=== PATIENT | female | born 1985 | race Caucasian/White ===

== ENCOUNTER 2016-10-13 16:47 | Emergency (ER) | payer OTHER ==
[2016-10-13] MEDS ORDERED: oxyCOD/ACETAMIN 5 MG/325 MG TABLET PO STA (17:07)
[2016-10-13] MEDS ORDERED: BUPIVACAINE 0.5%-EPI 1:200000 PF 10 ML VIAL SUBQ STA (17:07)
[2016-10-13] MEDS ORDERED: LIDOCAINE-EPINEPH-TETRACAINE 3 ML SYRINGE TOP STA (17:07)
[2016-10-13] MEDS ORDERED: LIDOCAINE-EPINEPH-TETRACAINE 3 ML SYRINGE TOP ONE (17:09)
[2016-10-13] MEDS ORDERED: oxyCOD/ACETAMIN 5 MG/325 MG TABLET PO ONE (17:09)
== END 2016-10-13 18:07 | disposition home or self-care (01) ==
DX: L02.412 Cutaneous abscess of left axilla (principal); E10.9 Type 1 diabetes mellitus without complications; F17.200 Nicotine dependence, unspecified, uncomplicated
CPT/HCPCS: 10060; 87070; 87205; 99283; A9270

== ENCOUNTER 2017-05-02 11:58 | Emergency (ER) | payer OTHER ==
[2017-05-02] MEDS ORDERED: LIDOCAINE 2%-EPI 1:100000 20 ML MDV SUBQ STA (13:11)
[2017-05-02] MEDS ORDERED: LIDOCAINE 2%-EPI 1:100000 20 ML MDV ONE (13:14)
[2017-05-02 13:15] VITALS: BP 156/75
--- NOTE | 2017-05-02 13:20 | ED Physician Documentation ---
History of Present Illness - Stated complaint Stated Complaint: LT ARM,ABD BLISTER - Chief complaint Chief Complaint: Ext Problem - History obtained from History obtained from: Patient - History of Present Illness Timing: How many days ago (several) Pain level max: 3 Pain level now: 3 Improved by: nothing Worsened by: nothing - Additonal information Additional information: Patient is a 31-year-old female who was seen at the [facility] earlier today and found to have an abscess on her stomach as well as in the left axilla. They stated that it would take them approximately 2 hours to drain the use at the [facility], so they sent her here for evaluation. She has had these abscesses multiple times in the past. Is not on antibiotics. Does not have any fevers. The abscess on the stomach spontaneously drained a few days ago, the abscess in the left axilla spontaneously drained on the way to the emergency department. Review of Systems Constitutional: denies: Fever, Chills Nose: denies: Rhinorrhea / runny nose, Congestion GI: denies: Nausea, Vomiting, Diarrhea : denies: Dysuria, Now EGA Musculoskeletal: denies: Neck pain, Back pain Neurologic: denies: Focal weakness, Numbness, Headache PD PAST MEDICAL HISTORY - Past Medical History Past Medical History: Yes Endocrine/Autoimmune: Type 1 diabetes Psych: ADD/ADHD - Past Surgical History Past Surgical History: No - Present Medications Home Medications: Ambulatory Orders Medication Instructions Recorded Confirmed Clonazepam [Klonopin] 0.5 mg PO DAILY 02/13/16 05/02/17 Insulin Aspart [Novolog] 10 unit SQ DAILYWM 02/13/16 05/02/17 Insulin Glargine,Hum.rec.anlog 40 unit SQ BID 02/13/16 05/02/17 [Lantus] Cephalexin [Keflex] 500 mg PO Q6H #28 capsule 05/02/17 Hydrocodone/Acetaminophen 1 - 2 each PO Q6H PRN #14 tablet 05/02/17 [Hydrocodon-Acetaminophen 5-325] Sulfamethox/Trimeth 800/160 1 each PO BID #14 tablet 05/02/17 [Bactrim Ds 800/160] - Allergies Allergies/Adverse Reactions: Allergies Allergy/AdvReac Type Severity Reaction Status Date / Time No Known Drug Allergies Allergy Verified 02/13/16 16:05 - Social History Does the pt smoke?: Yes Smoking Status: Current every day smoker Does the pt drink ETOH?: No Does the pt have substance abuse?: No - Immunizations Immunizations are current?: Yes - POLST Patient has POLST: No PD ED PE NORMAL - Vitals Vital signs reviewed: Yes - General General: Alert and oriented X 3, No acute distress - HEENT HEENT: Moist mucous membranes - Neck Neck: Supple, no meningeal sign - Cardiac Cardiac: RRR - Respiratory Respiratory: No respiratory distress, Clear bilaterally - Abdomen Abdomen: Soft, Non tender, Non distended - Derm Derm: Warm and dry, Other (2 x 2 centimeter indurated, raised, erythematous area to the left axilla, draining purulent fluid. A 1.5 x 1.5 cm indurated, erythematous area to the superior aspect of the stomach, near the epigastrium.) - Neuro Neuro: Alert and oriented X 3 Results - Vitals Vitals: Vital Signs - 24 hr 05/02/17 05/02/17 12:05 13:14 Temperature 36.7 C Heart Rate 109 H 103 H Respiratory 18 20 Rate Blood Pressure 141/94 H 156/75 H O2 Saturation 99 97 Oxygen O2 Source Room air Procedures - Abscess I&D (location) abdominal wall Preparation: Confirmed with ultrasound, Chlorhexadine Incision: Incised with scalpel, Purulent drainage, Culture obtained Other: Pt tolerated well, Antibiotic prescribed PD MEDICAL DECISION MAKING - ED course Complexity details: considered differential, d/w patient ED course: Patient is a 31-year-old female who presents to the emergency department with 2 abscesses. The left axillary abscess drained spontaneously on the way to the emergency department and she refuses incision and drainage of this abscess. A wound culture was obtained. An incision and drainage was performed over the abdominal wall abscess, she adamantly refused any lidocaine or any pain medication for the procedure. This was drained. Tolerated well. Will place on antibiotics for home and follow-up with her doctor. Patient counseled regarding signs and symptoms for which I believe and urgent re-evaluation would be necessary. Patient with good understanding of and agreement to plan and is comfortable going home at this time This document was made in part using voice recognition software. While efforts are made to proofread this document, sound alike and grammatical errors may occur. Departure - Departure Disposition: 01 Home, Self Care Clinical Impression: Abscess Condition: Good Instructions: ED Abscess IandD Follow-Up: Yolanda Ward DO [Primary Care Provider] - Within 1 week Prescriptions: Sulfamethox/Trimeth 800/160 [Bactrim Ds 800/160] 1 each PO BID #14 tablet Hydrocodone/Acetaminophen [Hydrocodon-Acetaminophen 5-325] 1 - 2 each PO Q6H PRN #14 tablet PRN Reason: pain Cephalexin [Keflex] 500 mg PO Q6H #28 capsule Comments: Return if you worsen. Take all antibiotics until gone. If these re-accumulate, they may need to be drained. You can also apply warm water/compresses three times a day for 10-15 minutes at a time. Discharge Date/Time: 05/02/17 13:29
== END 2017-05-02 13:29 | disposition home or self-care (01) ==
LOC: ED 11:58
DX: L02.211 Cutaneous abscess of abdominal wall (principal); L02.412 Cutaneous abscess of left axilla; E10.9 Type 1 diabetes mellitus without complications; F17.200 Nicotine dependence, unspecified, uncomplicated
CPT/HCPCS: 10060; 99283

== ENCOUNTER 2017-07-12 07:44 | Outpatient (CLI) | payer OTHER ==
--- NOTE | 2017-07-12 14:09 | MRI Report ---
EXAM: RIGHT FOREFOOT MRI WITHOUT CONTRAST EXAM DATE: 07/12/2017 08:30 AM. CLINICAL HISTORY: Pain in the right ankle and second metatarsophalangeal joint. History of osteomyeli tis. COMPARISON: Prior MRI 10/31/2011. TECHNIQUE: Multiplanar, multisequence T1-weighted and fluid-sensitive sequences of the forefoot witho ut contrast. Other: None. FINDINGS: Bones: There are no visible fractures. There are no foci of marrow edema. Joints: No subluxations. No effusions. The lcdlsd-tzzxvgls-xkhobmbyls complex is unremarkable. The vi sualized plantar plates are unremarkable. Articular Cartilage: Unremarkable. Ligaments: The visualized collateral ligaments are intact. Tendons: The flexor and extensor tendons are unremarkable. Musculature: No edema or fatty atrophy. Other: There is a 1.1 x 1.7 x 0.9 cm low T1, high T2 signal region in the subcutaneous fat underlying the surface marker, over the plantar aspect of the proximal phalanx of the fourth digit. The finding s are suggestive of a fluid collection, possibly an abscess. The differential diagnosis includes a ph legmon. There is edema of the soft tissues between the third and fourth metatarsal heads. The subcuta neous tissues are unremarkable. IMPRESSION: 1. Probable subcutaneous fluid collection or phlegmon underlying the proximal phalanx of the fourth d igit. This may be an abscess. There is surrounding subcutaneous edema. 2. No evidence of osteomyelitis. 3. No tenosynovitis or myositis. [facility] MUSCULOSKELETAL RADIOLOGY SECTION Referring Provider Line: [phone] SITE ID: [id number]
== END 2017-07-12 07:45 | disposition home or self-care (01) ==
LOC: DI 07:44
PROVIDERS: ATTEND Physician Assistant
DX: M25.571 Pain in right ankle and joints of right foot (principal)

== ENCOUNTER 2017-10-05 21:24 | Emergency (ER) | payer OTHER ==
[2017-10-05 21:30] VITALS: BP 144/83
[2017-10-05] MEDS ORDERED: SULFAMETH/TRIMETH DS 800/160 MG TABLET PO STA (21:34)
[2017-10-05] MEDS ORDERED: BUFFERED LIDOCAINE 10 ML SYRINGE SUBQ STA (21:34)
[2017-10-05] MEDS ORDERED: HYDROcod/ACETAM 5/325 MG TABLET PO STA (21:34)
--- NOTE | 2017-10-05 21:39 | ED Physician Documentation ---
PD HPI SKIN - Stated complaint Stated Complaint: BACK PAIN - Chief complaint Chief Complaint: Wound - History obtained from History obtained from: Patient - History of Present Illness Timing - onset: Other (32-year-old type I diabetic who has recurrent abscesses and has a 5 day history of abscess on the right flank.) Review of Systems Constitutional: reports: Chills, Sweats GI: denies: Abdominal Pain, Nausea, Vomiting Skin: reports: Rash, Lesions Musculoskeletal: denies: Neck pain PD PAST MEDICAL HISTORY - Past Medical History Past Medical History: Yes Endocrine/Autoimmune: Type 1 diabetes Psych: ADD/ADHD - Past Surgical History Past Surgical History: No - Present Medications Home Medications: Ambulatory Orders Medication Instructions Recorded Confirmed Insulin Aspart [Novolog] 10 unit SQ DAILYWM 02/13/16 05/02/17 Insulin Glargine,Hum.rec.anlog 40 unit SQ BID 02/13/16 05/02/17 [Lantus] HYDROcod/ACETAM 5/325 [[place] 5/325] 1 - 2 ea PO Q6H PRN #10 tablet 10/05/17 Sulfamethoxazole/Trimethoprim 1 each PO BID 7 Days tablet 10/05/17 [Sulfamethoxazole-Tmp Ds Tablet] - Allergies Allergies/Adverse Reactions: Allergies Allergy/AdvReac Type Severity Reaction Status Date / Time No Known Drug Allergies Allergy Verified 10/05/17 21:30 - Social History Does the pt smoke?: Yes Smoking Status: Current every day smoker Does the pt drink ETOH?: No Does the pt have substance abuse?: No - Immunizations Immunizations are current?: Yes - POLST Patient has POLST: No PD ED PE NORMAL - Vitals Vital signs reviewed: Yes - General General: Alert and oriented X 3, No acute distress - Abdomen Abdomen: Soft, Non tender - Derm Derm: Other (There is a pointed abscess on the right flank with mild surrounding cellulitis.) - Neuro Neuro: Alert and oriented X 3, Normal speech - Psych Psych: Normal mood, Normal affect Results - Vitals Vitals: Vital Signs - 24 hr 10/05/17 21:28 Temperature 37.2 C Heart Rate 117 H Respiratory 18 Rate Blood Pressure 144/83 H O2 Saturation 99 Oxygen O2 Source Room air - Labs Labs: Laboratory Tests 10/05/17 21:42 POC Whole Bld Glucose 196 H Procedures - Abscess I&D (location) R flank Preparation: Alcohol, Lidocaine 1% Incision: Incised with scalpel, Purulent drainage, Loculations broken, Packed ( with 1/4 inch packing), Culture obtained Other: Pt tolerated well, Antibiotic prescribed Departure - Departure Disposition: Home, Self Care Clinical Impression: Abscess Condition: Good Record reviewed to determine appropriate education?: Yes Instructions: ED Abscess IandD Prescriptions: HYDROcod/ACETAM 5/325 [[place] 5/325] 1 - 2 ea PO Q6H PRN #10 tablet PRN Reason: Pain Sulfamethoxazole/Trimethoprim [Sulfamethoxazole-Tmp Ds Tablet] 1 each PO BID 7 Days tablet Comments: We are performing a wound culture, the results should be done in 48-72 hours. If antibiotic change is necessary we will call you. Return if worse in the meantime, especially if you develop increased pain, fevers, cannot keep down the medication. Otherwise follow-up with your physician in approximately 2-3 days. Your blood pressure was elevated today on check into the emergency department. This does not mean that you have hypertension, it is a common phenomenon to come to the emergency department and have elevated blood pressure. I recommend that you see your primary care physician within the week to have it rechecked when you are feeling better.
== END 2017-10-05 22:03 | disposition home or self-care (01) ==
LOC: ED 21:24
DX: L02.211 Cutaneous abscess of abdominal wall (principal); E10.9 Type 1 diabetes mellitus without complications; R03.0 Elevated blood-pressure reading, without diagnosis of hypertension; F17.200 Nicotine dependence, unspecified, uncomplicated
CPT/HCPCS: 10060; 87070; 87181; 87205; 99283; A9270

== ENCOUNTER 2018-03-26 19:13 | Emergency (ER) | payer OTHER ==
[2018-03-26 19:19] VITALS: BP 140/99
[2018-03-26] MEDS ORDERED: BUFFERED LIDOCAINE 10 ML SYRINGE ONE (20:18)
[2018-03-26] MEDS ORDERED: DOXYCYCLINE 100 MG TABLET PO STA (20:40)
--- NOTE | 2018-03-26 20:43 | ED Physician Documentation ---
History of Present Illness - Stated complaint Stated Complaint: L ARM BUBBLE - Chief complaint Chief Complaint: General - History obtained from History obtained from: Patient - Additonal information Additional information: 32-year-old female presents the emergency department with pain under her left axilla. The patient has a history of recurrent abscesses. The patient reports increasing pain over the past 5 days and soreness and redness. No drainage. No fevers, no chills. Symptoms are described as moderate. No other associated symptoms Review of Systems Constitutional: denies: Fever, Chills Eyes: denies: Discharge Nose: denies: Congestion Throat: denies: Sore throat Skin: reports: Other (Abscess) Neurologic: denies: Generalized weakness Endocrine: denies: Polyphagia Immunocompromised: denies: Chemotherapy PD PAST MEDICAL HISTORY - Past Medical History Past Medical History: Yes Endocrine/Autoimmune: Type 1 diabetes Psych: ADD/ADHD - Past Surgical History Past Surgical History: No - Present Medications Home Medications: Ambulatory Orders Medication Instructions Recorded Confirmed Insulin Aspart [Novolog] 10 unit SQ DAILYWM 02/13/16 05/02/17 Insulin Glargine,Hum.rec.anlog 40 unit SQ BID 02/13/16 05/02/17 [Lantus] Doxycycline Hyclate 100 mg PO BID #20 capsule 03/26/18 - Allergies Allergies/Adverse Reactions: Allergies Allergy/AdvReac Type Severity Reaction Status Date / Time No Known Drug Allergies Allergy Verified 03/26/18 19:19 - Social History Does the pt smoke?: Yes Smoking Status: Current every day smoker Does the pt drink ETOH?: No Does the pt have substance abuse?: No - Immunizations Immunizations are current?: Yes - POLST Patient has POLST: No PD ED PE NORMAL - General General: Alert and oriented X 3, No acute distress - HEENT HEENT: Atraumatic, PERRL, EOMI - Derm Derm: Other (There is a firm indurated area in the left axilla, the patient has multiple areas of scar tissue from prior incision and drainages. There is no acute cellulitis.) - Extremities Extremities: No deformity - Neuro Neuro: Alert and oriented X 3, Normal speech - Psych Psych: Normal mood Results - Vitals Vitals: Vital Signs - 24 hr 03/26/18 19:17 Temperature 36.5 C Heart Rate 130 H Respiratory 20 Rate Blood Pressure 140/99 H O2 Saturation 99 Oxygen O2 Source Room air Procedures - Abscess I&D (location) Other left Preparation: Betadine, Lidocaine 1% Incision: Needle aspiration Other: Pt tolerated well, Other (Bedside ultrasound was used. There was only a small area of fluid collection. After applying Betadine and anesthetizing the area I did several needle aspirations with direct ultrasound visualization.. I only obtained a very small amount of purulent fluid. Since the area was so small and the aspiration was essentially unsuccessful no incision was made at this time.) PD MEDICAL DECISION MAKING - ED course ED course: The wound is mostly indurated, on a needle aspiration under ultrasound there was essentially no fluid obtained so no incision was made at this time. The patient will be started on a course of antibiotics. I discussed with her the possibility that this may accumulate more and require reevaluation and possible incision and drainage at that time. The patient understands and agrees. The patient's heart rate is elevated most likely secondary to pain and discomfort from the abscess. Currently, the patient appears appropriate for discharge and ongoing outpatient management. I discussed warning signs and recommended returning to the emergency department immediately for worsening or any concerns. - Sepsis Event Vital Signs: Vital Signs - 24 hr 03/26/18 19:17 Temperature 36.5 C Heart Rate 130 H Respiratory 20 Rate Blood Pressure 140/99 H O2 Saturation 99 Oxygen O2 Source Room air Departure - Departure Disposition: 01 Home, Self Care Clinical Impression: Abscess Condition: Good Instructions: ED Abscess Abx Tx Only Ch Prescriptions: Doxycycline Hyclate 100 mg PO BID #20 capsule Comments: Please follow-up with primary care in 3 days for wound recheck. Please return to the emergency department immediately for worsening symptoms or any concerns
== END 2018-03-26 20:46 | disposition home or self-care (01) ==
LOC: ED 19:13
DX: L02.412 Cutaneous abscess of left axilla (principal); E10.9 Type 1 diabetes mellitus without complications; F17.200 Nicotine dependence, unspecified, uncomplicated
CPT/HCPCS: 10060; 99283; A9270

== ENCOUNTER 2018-03-28 05:07 | Emergency (ER) | payer OTHER ==
[2018-03-28] MEDS ORDERED: BUFFERED LIDOCAINE 10 ML SYRINGE ONE (05:14)
[2018-03-28] MEDS ORDERED: HYDROcod/ACETAM 10 MG/325 MG TABLET PO STA (05:36)
--- NOTE | 2018-03-28 05:39 | ED Physician Documentation ---
PD HPI SKIN - Stated complaint Stated Complaint: ABSCESS UNDER LT ARM - Chief complaint Chief Complaint: Wound - History obtained from History obtained from: Patient - Additional information Additional information: 32-year-old female returns to the emergency department for reevaluation of an abscess in her left axilla. The patient has a history of recurrent abscesses and has significant scar tissue from multiple incision and drainages in the past. The patient was told by surgery that she needs a excision of that entire area with skin grafting. But, the patient has not been able to undergo the surgery. Today the patient returns secondary to increased pain. No fevers, no chills. No relieving factors. No other associated symptoms Review of Systems Constitutional: denies: Fever, Chills Eyes: denies: Discharge Skin: reports: Other (Abscess) Immunocompromised: denies: Chemotherapy PD PAST MEDICAL HISTORY - Past Medical History Past Medical History: Yes Endocrine/Autoimmune: Type 1 diabetes Psych: ADD/ADHD - Past Surgical History Past Surgical History: No - Present Medications Home Medications: Ambulatory Orders Medication Instructions Recorded Confirmed Insulin Aspart [Novolog] 10 unit SQ DAILYWM 02/13/16 05/02/17 Insulin Glargine,Hum.rec.anlog 40 unit SQ BID 02/13/16 05/02/17 [Lantus] Doxycycline Hyclate 100 mg PO BID #20 capsule 03/26/18 HYDROcod/ACETAM 5/325 [[place] 5/325] 1 each PO Q6H PRN #15 tablet 03/28/18 - Allergies Allergies/Adverse Reactions: Allergies Allergy/AdvReac Type Severity Reaction Status Date / Time No Known Drug Allergies Allergy Verified 03/28/18 05:17 - Social History Does the pt smoke?: Yes Smoking Status: Current every day smoker Does the pt drink ETOH?: No Does the pt have substance abuse?: No - Immunizations Immunizations are current?: Yes - POLST Patient has POLST: No PD ED PE NORMAL - General General: Alert and oriented X 3 - HEENT HEENT: Atraumatic, PERRL, EOMI, Ears normal - Derm Derm: Normal color - Extremities Extremities: No deformity, Other (The patient has a firm indurated area in her left axilla, there is no cellulitis or erythematous changes, the patient has multiple areas of prior incision and drainage with significant scar tissue.) - Neuro Neuro: Alert and oriented X 3, Normal speech - Psych Psych: Normal affect Results - Vitals Vitals: Vital Signs - 24 hr 03/28/18 05:10 Temperature 36.7 C Heart Rate 102 H Respiratory 18 Rate Blood Pressure 144/91 H O2 Saturation 100 Oxygen O2 Source Room air Procedures - Abscess I&D (location) Upper extremity left Preparation: Betadine, Lidocaine 1% Incision: Incised with scalpel. No: Purulent drainage Other: Pt tolerated well, Other (And incision was made after the area was prepped and anesthetized. Inadequate incision was made and a hemostat was used to open up the area. No drainage occurred. There was scant bleeding. The area was not packed since no drainage occurred) PD MEDICAL DECISION MAKING - ED course ED course: There was no drainage from the site, the patient will continue antibiotics. There is no evidence of sepsis at this point and the patient appears appropriate for ongoing outpatient management. I have advised that the patient follow through and see surgery for further management of her condition. I discussed warning signs and recommended returning to the emergency department immediately for worsening or any concerns. - Sepsis Event Vital Signs: Vital Signs - 24 hr 03/28/18 05:10 Temperature 36.7 C Heart Rate 102 H Respiratory 18 Rate Blood Pressure 144/91 H O2 Saturation 100 Oxygen O2 Source Room air Departure - Departure Disposition: 01 Home, Self Care Clinical Impression: Abscess Condition: Good Instructions: ED Abscess IandD Follow-Up: Vamsi Tucker MD [Provider Admit Priv/Credential] - (Call to schedule a follow-up appointment for your chronic abscesses) Prescriptions: HYDROcod/ACETAM 5/325 [[place] 5/325] 1 each PO Q6H PRN #15 tablet PRN Reason: Pain Comments: Please return to the emergency department for worsening symptoms or any concerns
[2018-03-28 05:45] VITALS: BP 138/88
== END 2018-03-28 05:45 | disposition home or self-care (01) ==
LOC: ED 05:07
DX: L02.412 Cutaneous abscess of left axilla (principal); E10.9 Type 1 diabetes mellitus without complications; F17.200 Nicotine dependence, unspecified, uncomplicated
CPT/HCPCS: 10060; 99283; A9270

== ENCOUNTER 2018-06-26 15:00 | Outpatient (CLI) | payer OTHER ==
--- NOTE | 2018-06-26 17:54 | CONSULTATION NOTE ---
Palliative Care Consultation - Referral Referring Provider: Dr. Liam Reyes Time of Visit: 9820-7995 Referral setting: Home (It is a taxing and considerable effort for the patient to leave the home related to fatigue/activity intoleran) Referral Reason: Colon Cancer with Liver Mets/THERESA - Information Sources Records reviewed: Previous records reviewed History/Review of Systems obtained from: Patient, Family (AYALA Shirley present for most of visit) Exam limitations: Clinical condition (patient with severe anxiety) - History of Present Illness Brief History of Present Illness: This is an unfortunate 32-year-old woman who has recently been diagnosed with colon cancer with metastatic disease to the liver. Her history is somewhat complex, she does report about 2 months of increasing weakness, nausea and vomiting, fever, night sweats and increasing abdominal pain as well as a 20 pound weight loss. 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 She was seen on 05/24 at [facility] for UTI, with elevated white blood cells, and negative urine cultures. She was on antibiotics, but returned on 05/31 with nausea and vomiting and increasing weakness. And workup on a CT of the chest and abdomen found extensive hepatic disease, descending colon mass, was sent home on [facility] for outpatient workup. On 06/04 patient was called about positive blood culture told to go the ER at [facility], where she was admitted with elevated temp, tachycardia, and hypertension. She was admitted with MRSA bacteremia with sepsis, and given blood transfusion for her anemia. There is been some conflicting information about her MRSA status. She was seen by GI on 06/08 with a EGD and colonoscopy noting a large obstructing colonic mass, had a liver biopsy under ultrasound which was positive for metastatic adenocarcinoma consistant with colon primary. and was transferred to [facility] for higher level of care and possible stenting. She was hospitalized there from 06/09-06/16, Though she was not completely obstructing, she was at high risk to obstruct in the future. The goal would to be proceed with systemic chemotherapy, so underwent a laparoscopic diverting transverse colostomy. Her surgical findings included extensive metastatic spread to her liver, both lobes. One peritoneal implant in the left abdominal and, tumor in the descending colon was large and palpable and was densely adherent to the left abdominal sidewall. Patient had met with Dr. Chappell the medical oncologist regarding future plans, but has poor recall and understanding of the "what's next". Patient does present and admits to underlying anxiety disorder, is quite fearful and with poor understanding what her current diagnosis means and implications of this. She understands she has stage IV disease, but unclear if that means she is "dying tomorrow", and others have told her she can "beat this". Is feeling quite overwhelmed, her has just left for 6-week truck assignment, she is home with 3 little children but does have her [id number] Mariella to provide support. 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 She has 2 sons from a previous marriage, and a daughter with her current . Financially they are quite stressed, he cannot take any further time off, he is recently retired from the [employer]. She reports she has underlying anxiety, has previously been seen by psychiatry, she reports she is having increasing panic attacks particularly with the current unknown situation. She has difficulty identifying other means of support. Family History - Family History Family History: Mother: Alive and Well, Father: Alive and Well Medications/Allergies - Medications Home Medications: Ambulatory Orders Medication Instructions Recorded Confirmed Insulin Glargine,Hum.rec.anlog 40 unit SQ BID 02/13/16 06/27/18 [Lantus] Dextroamphetamine/Amphetamine 5 mg PO DAILY PRN 06/27/18 06/27/18 [Adderall 5 mg Tablet] Docusate Sodium 100 mg PO BID 06/27/18 06/27/18 Insulin Aspart [NovoLOG] 1 units SUBQ BID PRN MDD sliding 06/27/18 06/27/18 scale Polyethylene Glycol 3350 [Miralax] 17 gm PO DAILY PRN 06/27/18 06/27/18 clonazePAM [Clonazepam] 0.5 mg PO BID PRN 06/27/18 06/27/18 oxyCODONE [Roxicodone] 5 mg PO Q4HR PRN 06/27/18 06/27/18 - Allergies Allergies/Adverse Reactions: Allergies Allergy/AdvReac Type Severity Reaction Status Date / Time No Known Drug Allergies Allergy Verified 03/28/18 05:17 Review of Systems - Constitutional Constitutional: reports: Fatigue, Weakness, Poor appetite, Weight loss. denies: Fever, Chills - Cardiovascular Cardiovascular: reports: Decr. exercise tolerance - Respiratory Respiratory: denies: SOB at rest - Gastrointestinal Gastrointestinal: reports: Early satiety, Other (colostomy has been inst. to increase bowels meds firming up). denies: Nausea - Musculoskeletal Musculoskeletal: reports: Muscle weakness - Integumentary Integumentary: reports: Dryness - Neurological Neurological: reports: General weakness - Psychiatric Psychiatric: reports: Depression, Anxiety - Endocrine Endocrine: reports: Other (gestational diabetes/insulin dependent) - Hematologic/Lymphatic Hematologic/Lymphatic: reports: Anemia, Recurrent infections (recent treatment for bacteremia) - All Other Systems All Other Systems: reports: Reviewed and negative Physical Exam - Vital Signs Temperature: 96.8 C Pulse Rate: 88 Respiratory Rate: 18 O2 Saturation: 95 (ra @ ) Blood Pressure: 138/98 - Physical Exam General Appearance: positive: Moderate distress, Anxious Eyes Bilateral: positive: Normal inspection ENT: positive: No signs of dehydration Neck: positive: No JVD, Trachea midline Cardiovascular: positive: Regular rate & rhythm, Tachycardia Respiratory: positive: Breath sounds nml Abdomen: positive: Nml bowel sounds, Tenderness, Guarding, Other (stoma appears pink and healthy) Skin: positive: Pallor, Dryness, Other (palpable old portacath; present from hx of osteomyelitis and need for antibiotics about 6 years ago) Extremities: positive: No pedal edema Neurologic/Psychiatric: positive: Oriented x3, Weakness, Depressed mood/affect, Flat affect Palliative Care - POLST Patient has POLST: No Pain: Pain improved, Location (left upper abdomenal area as well as surgical/stoma site; using oxycodone 5 mg up to 4 times a day) Tiredness/Fatigue: Moderate (4-6) Drowsiness/Sedation: Moderate (4-6) Nausea: None Depression: Severe (7-10) Anxiety: Severe (7-10) Anorexia: Moderate (4-6), Weight loss Sleep: Variable sleep pattern Performance Status: Patient with poor activity tolerance, is able to ambulate around the house, shower independently. Has been limiting her colostomy care, does have home health nursing providing support. At this point is not had enough energy to do meal prep, does have assistance from her [id number] in the home moving forward - Palliative Care Discussion: Discussed how patient likes information, reports she does not like to read. Prefers to have conversation and communication regarding this,that much of the information she received she does not remember nor understood. We did discuss in the context of stage IV colon cancer, that it is not curative, but there are certainly treatment options moving forward, but the goal is to extend both her quality and quantity of life, but this will include also needing to start to plan, particularly as a mother of young children, for the eventuality of end of life. Framed the conversation and hoping for the best, reviewed she is a young person yet and we will have treatment options moving forward, but also need to be prepared, and move forward on her affairs. She did discuss at length her anxieties, underlying anxiety disorder with increasing panic attacks, and what would be of help as far as ongoing support. It has been difficult between she and her , and now he will not be back till [place], so she is feeling very much alone in this process. Impression and Recommendations - Palliative Care Impression: This is a 33-year-old woman recently diagnosed with metastatic colon cancer to the liver, with recent colostomy. Patient has not yet started treatment, has high anxiety, and feeling overwhelmed. Palliative care team to provide support ongoing for pain and symptom management as well as anticipatory guidance. Recommendations/Counseling Done: 1. General anxiety disorder. Patient has previously been managed on clonazepam, her primary care provider has been titrating her off. Patient was on it during hospital, does appear she is having some symptoms of withdrawal. We will go ahead and reorder at 0.5 mg twice daily, will reach out to PCP Dr. Reyes for past history. Referral to the medical palliative care social work msw also made, for counseling and adjustment to illness. Patient reports has been in the past SSRIs, as well as Wellbutrin, without effect are on acceptable side effects. We will continue to explore other tools that might be of help for her. 2. Metastatic colon cancer with liver metastases. Patient does present with high tumor burden, has follow-up with surgeon next week, hopefully will start treatment in the near future. Counseling provided regarding a generalized overview of cancer treatment, goals of care, and ways she can participate as far as nutrition, managing her blood sugars, hydration, and self-care. 3. Pain of neoplastic origin. Patient presents with double persistent abdominal pain, unclear of acute versus chronic. Currently well controlled on the oxycodone 5 mg intermittently, will continue to monitor. 4. Diabetes type 2, history of gestational diabetes. Will work with home health, for better monitoring, and control. Glycemic control will be important in the future regarding her cancer treatment and outcomes. 5. Advanced care planning. Patient has not been able to explore or fathom, the needs for her future and future planning for her children. Recommended given her current situation, await for treatment plan, then can rehearse some things to talk to her children about, they do understand she is been sick as she has been in the hospital and having current symptoms. Currently [id number] Mariella, available to help with transportation and care. Counseling provided regarding ways to talk to friends and family about her current diagnosis, as well as to setting limits on her time and energy. Time Spent: 75 minutes with greater than 50% of this done in counseling regarding current diagnosis, anticipatory guidance, symptom management and setting rapport. Plan to see patient after surgeon appointment 07/03
== END 2018-06-26 15:01 | disposition home or self-care (01) ==
LOC: PC 15:00
PROVIDERS: ATTEND Nurse Practitioner Adult Health
DX: Z51.5 Encounter for palliative care (principal); C18.9 Malignant neoplasm of colon, unspecified; C78.7 Secondary malignant neoplasm of liver and intrahepatic bile duct; C78.6 Secondary malignant neoplasm of retroperitoneum and peritoneum; G89.3 Neoplasm related pain (acute) (chronic); E11.9 Type 2 diabetes mellitus without complications; F41.0 Panic disorder [episodic paroxysmal anxiety]; F41.1 Generalized anxiety disorder; F90.9 Attention-deficit hyperactivity disorder, unspecified type; Z79.891 Long term (current) use of opiate analgesic; Z79.4 Long term (current) use of insulin; Z93.3 Colostomy status
CPT/HCPCS: 99345

== ENCOUNTER 2018-07-17 10:30 | Outpatient (CLI) | payer OTHER ==
--- NOTE | 2018-07-17 16:57 | CONSULTATION NOTE ---
Palliative Care Follow Up - Referral Referring Provider: Dr. Liam Reyes Time of Visit: 05-24 Referral setting: Home Referral Reason: Metastatic Colon Cancer - Information Sources Records reviewed: RN notes reviewed, Previous records reviewed History/Review of Systems obtained from: Patient Exam limitations: Clinical condition (patient feeling poorly; reports severe migraine) - History of Present Illness Update Brief HPI Update: This is a 33-year-old woman who was diagnosed with metastatic disease to the liver. Please see history 06/26. She had a complex series of events leading up to her hospitalization on 06/08/2018 to [facility] which revealed an obstructing mass. On workup she was found to have extensive hepatic disease, descending colon mass, received a liver biopsy. She was admitted to [facility] where she received a diverting colostomy. She has a history of type 1 diabetes status post gestational diagnosis. She has known poor compliance regarding this, but is aware she needs tighter control. She presents today with a severe migraine, maroon drainage in her colostomy bag of about 2-3 tablespoons, rock hard chunks of stool, light brown and yellow, about three quarters of a cups worth. She presents with a severe migraine, and reluctant to engage in any kind of conversation and/or teaching.. Of concern she is quite pale, she remains hypertensive at 158/104, with any kind of activity is tachycardiac, which is been baseline for her presenting today at 128. Patient is quite resistant and going in for further workup, she is getting her port placed tomorrow, did have home health care nurse come to remove colostomy bag to be able to examine stoma and source of bleeding. On exam removal of the bag, stool is light brown, drainage around is maroon, no clots. And cleansing stoma itself there is no source of bleeding, examination of internal stoma stool light brown, no masses felt, abdomen is soft, suspect hard stool is source of bleeding to stoma. New colostomy bag placed, Patient is instructed if recurrent bleeding, further symptoms of acute pain, unresolved nausea or vomiting, dizziness, or shortness of breath patient is to go to the ED. Patient's last H&H are of concern with hematocrit 26, hemoglobin 8.1 this is collected on 07/03/18. [facility] to arrange for [facility]&H, patient declined to go to local lab, patient has very poor venous access thus the placement of the Port-A-Cath. She does not know if she is receiving chemotherapy tomorrow or not. 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 He is on the road now, currently her brother's girlfriend Mariella, is present to care for the children. There remains quite a bit of distress and issues in the home, and reportedly patient continues to not be forthright or engaged in her care plan per her caregiver. Medications/Allergies - Medications Home Medications: Ambulatory Orders Medication Instructions Recorded Confirmed Insulin Glargine,Hum.rec.anlog 40 unit SQ BID 02/13/16 07/17/18 [Lantus] Dextroamphetamine/Amphetamine 5 mg PO DAILY PRN 06/27/18 07/17/18 [Adderall 5 mg Tablet] Docusate Sodium 100 mg PO BID 06/27/18 07/17/18 Insulin Aspart [NovoLOG] 1 units SUBQ BID PRN MDD sliding 06/27/18 07/17/18 scale Polyethylene Glycol 3350 [Miralax] 17 gm PO DAILY PRN 06/27/18 07/17/18 clonazePAM [Clonazepam] 0.5 mg PO BID PRN 06/27/18 07/17/18 oxyCODONE [Roxicodone] 5 mg PO Q4HR PRN 06/27/18 07/17/18 Propranolol [Inderal] 10 mg PO BID 07/17/18 07/17/18 - Allergies Allergies/Adverse Reactions: Allergies Allergy/AdvReac Type Severity Reaction Status Date / Time No Known Drug Allergies Allergy Verified 03/28/18 05:17 Review of Systems - Constitutional Constitutional: reports: Fatigue, Malaise, Weight loss (has not recently weighed) - Ears, Nose & Throat Ears, Nose & Throat: reports: Dry mouth - Cardiovascular Cardiovascular: reports: Lightheadedness, Exertional dyspnea, Decr. exercise tolerance - Respiratory Respiratory: reports: SOB with exertion - Gastrointestinal Gastrointestinal: reports: Constipation, Nausea, Poor appetite, Other (maroon liquied mixed with hard stool) - Musculoskeletal Musculoskeletal: reports: Muscle weakness - Neurological Neurological: reports: General weakness, Headache (reports migraine) - Psychiatric Psychiatric: reports: Anxiety - Endocrine Endocrine: reports: Other - Hematologic/Lymphatic Hematologic/Lymphatic: reports: Anemia - All Other Systems All Other Systems: reports: Reviewed and negative Physical Exam - Vital Signs Temperature: 98.6 C Pulse Rate: 128 (101 end of visit) Respiratory Rate: 18 O2 Saturation: 95 (ra @ rest) Blood Pressure: 158/104 - Physical Exam General Appearance: positive: Moderate distress Eyes Bilateral: positive: Normal inspection Neck: positive: Trachea midline Cardiovascular: positive: Tachycardia Respiratory: positive: No respiratory distress Abdomen: positive: Non-tender, Soft, Nml bowel sounds, Other Skin: positive: Pallor Extremities: positive: No pedal edema Neurologic/Psychiatric: positive: Oriented x3, Weakness, Depressed mood/affect, Flat affect Palliative Care - POLST Patient has POLST: No Pain: Pain improved, Location (vague abdominal pain; intermittent; occasional use of oxycodone; patient with severe migraine this AM; using ice) Tiredness/Fatigue: Moderate (4-6) (reports prior to this am; had been doing more with some improvement; currently fatigued) Drowsiness/Sedation: Moderate (4-6) Nausea: Moderate (4-6), With vomiting (denies vomiting but CG suspects did) Depression: Moderate (4-6) Anxiety: Moderate (4-6) Dyspnea: Mild (1-3) Anorexia: Mild (1-3) Sleep: Variable sleep pattern Constipation: Yes, Opoid induced, Unmanaged Feelings of wellbeing/Perceived Quality of Life: Poor Performance Status: Patient spends most of the day on the couch, is ambulatory in the house. Is trying to participate more in household tasks, is limited today because of her pain. She is able to independently bathe, she is managing her own medications, insulin, as well as blood sugars. - Palliative Care Discussion: Patient feeling very poorly today, did not approach further counseling regarding advance care directives. Patient does have a very poor prognosis, she has not been very engaged in her treatment plan. He has started to work with her colostomy, is taking her blood glucose again, but unclear how closely she is controlling her sugars. She reports her anxiety is better controlled with the clonazepam, she is still feeling quite overwhelmed. When asked about her chemotherapy, and her appointments, she cannot recall conversations with the on cologist. She does have teaching sheets on her [employer], but these have not been reviewed and are red, they are in the bottom of her bag. She does not feel up to having further conversation regarding these, and does not know if she is receiving these or not. Given the complexity of her social situation, discussed to receiving her care closer to home, reviewed there are 3 oncologist to come from [place] at the local hospital, she reports her oncologist "mention something about that ", will explore either comanagement or transfer of care to assist patient regarding transportation stressors and closer follow-up Impression and Recommendations - Palliative Care Impression: This is a 33-year-old woman with metastatic colon cancer, high tumor burden, metastatic disease to liver, with recent diverting colostomy. Patient presents today with concerns regarding bleeding, patient was significantly hard stool, most likely as a result of stoma irritation. Patient has been instructed if recurrent bleeding, or signs or symptoms of decompensation, she is to go to the ED. Patient presents with concerns for worsening anemia, high anxiety, severe migraine today. She is scheduled for port placement tomorrow, arrangements made for follow-up on labs. Palliative care to continue to provide support for symptom management, establish rapport, and provide anticipatory guidance. Patient with multiple psychosocial stressors, poor psychosocial support, and history of difficulty with treatment adherence in the past, now with serious illness. Recommendations/Counseling Done: 1. Constipation, opioid induced. Patient taking only stool softener twice daily, patient is been instructed to initiate MiraLAX daily starting today. Counseling provided regarding goal needing regular soft stool moving through stoma, secondary to severe stomal irritation presents with bleeding most likely attributed to stomal irritation. Patient has started to participate and care of her ostomy, today presents with migraine, difficult to engage in further instruction and assessment 2. Anemia. Concern regarding patient's symptoms regarding history of blood transfusions, patient pale in color, poor activity tolerance. Remains tachycardic, last documented H&H low. Call to [facility] Center to facilitate labs and follow-up. Received voicemail back, they will draw labs at the time of her admission for her port placement. 3. Hypertension. Patient has had very low response to the propranolol 10 mg daily, patient does report she is compliant. We will go ahead and start titrating this up, she has been instructed to start propranolol 10 mg twice daily, will continue to monitor and titrate to effect. 4. Metastatic colon cancer. Patient with very little insight are curiosity regarding her treatment plan. She has not reviewed chemotherapy teaching, she is unable to really engage today with her migraine. We did discuss in the context of her stressors, receiving care closer to home, reviewed options here at [facility], as well as [facility]. Given patient's migraine today, did not pursue further treat teaching, agreed to follow up visit next week. Will engage nurses in follow up as well. 5. Diabetes, insulin dependent. Patient does report she is tracking her blood sugars currently, reports blood sugar this morning was 80, she did have some food. She does feel like this most likely triggered her migraine. Home health nurse bringing diabetic log, encouraged as part of her visits to engage in diabetic teaching and follow-through. Counseling provided regarding the role of good diabetic control in cancer treatment. We will continue to follow and reinforce. 6. Advanced care planning. Patient does have 3 children in the home, ages 6- 12, patient's brother's girlfriend Mariella has been caring for the children. There is been significant amount of distress, this is not shared directly with me from patient. She has met with a medical palliative care vp digital marketing social media and crm, urgently she needs a durable power of health deputy prosecuting attorney, as her will not be returning from being on the road until Xmas. Patient's oncology note, does reflect patient has poor prognosis of 35% chance of responding to treatment, will need to continue to move forward on goals of care. Time Spent: 60 minutes with greater than 50% of this done in counseling, follow-up regarding constipation, pain management, coordination of care with home health nurse, provided anticipatory guidance and instruction on accessing ED for any signs or symptoms of further bleeding or symptoms as a result of her anemia.
== END 2018-07-17 10:31 | disposition home or self-care (01) ==
LOC: PC 10:30
PROVIDERS: ATTEND Nurse Practitioner Adult Health
DX: Z51.5 Encounter for palliative care (principal); C18.6 Malignant neoplasm of descending colon; C78.7 Secondary malignant neoplasm of liver and intrahepatic bile duct; Z93.3 Colostomy status; G43.909 Migraine, unspecified, not intractable, without status migrainosus; E11.9 Type 2 diabetes mellitus without complications; F41.9 Anxiety disorder, unspecified; D64.9 Anemia, unspecified; K59.03 Drug induced constipation; T40.2X5A Adverse effect of other opioids, initial encounter; Z79.4 Long term (current) use of insulin
CPT/HCPCS: 99350

== ENCOUNTER 2018-07-24 12:22 | Outpatient (CLI) | payer OTHER ==
[2018-07-24 15:10] LABS: BASOPHILS # (AUTO) 0.1 10^3/uL (0.0-0.1); BASOPHILS % (AUTO) 0.8 %; EOSINOPHILS # (AUTO) 0.2 10^3/uL (0.0-0.7); EOSINOPHILS % (AUTO) 1.8 %; HGB - HEMOGLOBIN 8.9 g/dL (12.0-16.0); LYMPHOCYTES # (AUTO) 1.5 10^3/uL (1.5-3.5); MEAN CORPUSCULAR HGB CONC 31.7 g/dL (32.0-36.0); MEAN CORPUSCULAR VOLUME 78.9 fL (81.0-99.0); MEAN PLATELET VOLUME 7.5 fL (7.9-10.8); MONOCYTES # (AUTO) 1.4 10^3/uL (0.0-1.0); MONOCYTES % (AUTO) 10.6 %; NEUTROPHILS # (AUTO) 10.2 10^3/uL (1.5-6.6); NEUTROPHILS % (AUTO) 75.8 %; PLT - PLATELET COUNT 535 10^3/uL (130-450); RED BLOOD COUNT 3.57 10^6/uL (4.20-5.40); RED CELL DISTRIBUTION WIDTH 19.8 % (12.0-15.0); WHITE BLOOD COUNT 13.5 x10^3/uL (4.8-10.8)
[2018-07-24 15:20] LABS: ALBUMIN 1.6 g/dL (3.2-5.5); ALBUMIN/GLOBULIN RATIO 0.3 (1.0-2.2); BILIRUBIN,TOTAL 0.4 mg/dL (0.2-1.0); CALCIUM 7.9 mg/dL (8.5-10.3); CREATININE 0.5 mg/dL (0.4-1.0); TOTAL PROTEIN 6.6 g/dL (6.7-8.2)
--- NOTE | 2018-07-30 15:37 | CONSULTATION NOTE ---
Palliative Care Follow Up - Referral Referring Provider: Dr. Liam Reyes Time of Visit: [id number] Referral setting: Home Referral Reason: Pain of neoplastic origin/Stage IV Colon Cancer - Information Sources Records reviewed: Previous records reviewed History/Review of Systems obtained from: Patient, Caregiver (Mariella; brother's girlfriend who is providing support for family gave most of history; patient overwhelmed and unwilling/unable to provide details) Exam limitations: Clinical condition (patient very angry and short; feeling poorly;) - History of Present Illness Update Brief HPI Update: This is a 33-year-old woman who was diagnosed with metastatic stage IV colon cancer to the liver.. She had a series of complex events leading up to her hospitalization at [facility] on 06/08/2018 which revealed an obstructing mass. She was found on workup to have extensive hepatic disease, descending colon mass and was admitted to [facility] where she received a diverting colostomy. She is continued to have difficulty with compliance, follow-through with her diabetes, management of her symptoms, tracking her medications, and reports today she "feels like ". She had received her first chemotherapy which was oxaliplatin/leucovorin/5-FU continuous infusion which was discontinued on Monday. Appointment had been set up to follow-up on patient's uncontrolled pain, patient had tried to cancel appointment, but caregiver very concerned is patient is having ongoing nausea and vomiting so requested I come, though interesting she does deny this despite a trash can have filled with vomit. When explored further she reports she had not taken her antiemetic this morning, she perceives she is "supposed to throw up" with chemo, this is normal. She had just eaten and throwing up [employer] food meal. In review with caregiver, patient insisted on eating [employer], macaroni cheese, does not feel like she is been checking her blood sugars, nor tracking her fluids. Patient is quite defensive, and willing to or unable to recall information or we can, who has been instructed by multiple players regarding management of her blood sugars, diet, fluids, and medications. Did agree to talk with me about her pain, though was quite distressed by questions and trying to pinpoint underlying location of pain, frequency of medications, and come to some agreement on a goal. Patient reports her pain is "all over", unable to locate specifically regarding pain, does report has been taking oxycodone 5 mg about 1 every 2 hours, though is not tracking this nor able to confirm. She did receive 300 tabs around 07/06, has 115 tabs left to count. Reports she did try 2 tabs at a time, with increased vomiting, though she only tried this 1 time. Appears patient is taking between 45 and 55 mg of oxycodone in 24 hours, given patient's poor adherence and concern for safety, will initiate fentanyl 12 mcg patch this is equal analgesic to about 20 mg of oxycodone. Will titrate up, after a few days, as indicated. And follow-up regarding location, does appear to be lower abdominal radiating to back, is having discomfort with palpation, though does not present with guarding. On exam Social History - Living Situation Living arrangement: At home Living Situation: With family Support System: Mariella her brother's girlfriend, has been providing support both to patient and for caring for children. Unfortunately the children are off [place] break, patient is quite short and overwhelmed with dealing with the kids, often is yelling. Patient's is due back right around [place], there have been significant tensions even prior to patient's illness, suspect there may be an escalation on return home. Patient has been reported to be verbally abusive to him, as well as concerns with the children. Medications/Allergies - Medications Home Medications: Ambulatory Orders Medication Instructions Recorded Confirmed Insulin Glargine,Hum.rec.anlog 40 unit SQ BID 02/13/16 07/17/18 [Lantus] Dextroamphetamine/Amphetamine 5 mg PO DAILY PRN 06/27/18 07/17/18 [Adderall 5 mg Tablet] Docusate Sodium 100 mg PO BID 06/27/18 07/17/18 Insulin Aspart [NovoLOG] 1 units SUBQ BID PRN MDD sliding 06/27/18 07/17/18 scale Polyethylene Glycol 3350 [Miralax] 17 gm PO DAILY PRN 06/27/18 07/17/18 clonazePAM [Clonazepam] 0.5 mg PO BID PRN 06/27/18 07/17/18 oxyCODONE [Roxicodone] 5 mg PO Q3HR PRN 06/27/18 07/17/18 Propranolol [Inderal] 10 mg PO BID 07/17/18 07/17/18 fentaNYL [Fentanyl 12mcg patch] 12 mcg TOP .3 DAY 07/30/18 07/30/18 - Allergies Allergies/Adverse Reactions: Allergies Allergy/AdvReac Type Severity Reaction Status Date / Time No Known Drug Allergies Allergy Verified 03/28/18 05:17 Review of Systems - Constitutional Constitutional: reports: Fatigue, Weakness, Poor appetite, Diaphoresis - Cardiovascular Cardiovascular: reports: Decr. exercise tolerance - Respiratory Respiratory: reports: Other (patient is smoking) - Gastrointestinal Gastrointestinal: reports: Nausea, Vomiting (though denies problematic; large amount of emesis in trashcan at bedside;), Poor appetite, Other (colostomy; no output noted; small amount brown smear with maroon appearance; reports has been soft and going; unable to confirm) - Musculoskeletal Musculoskeletal: reports: Muscle weakness, Other (spending most of weekend in bed) - Integumentary Integumentary: reports: Dryness - Neurological Neurological: reports: General weakness, Memory problems - Psychiatric Psychiatric: reports: Depression, Anxiety - Endocrine Endocrine: reports: Intolerance to heat, Other (unable to produce data or proof had been taking BS; Mariella has not seen; discussed current symptoms of feeling flushed/diaphoresis etc. could be fluctuating BS; declined checking "will do when you leave") - Hematologic/Lymphatic Hematologic/Lymphatic: reports: Anemia - All Other Systems All Other Systems: reports: Reviewed and negative Physical Exam - Vital Signs Temperature: 96.9 C Pulse Rate: 88 Respiratory Rate: 18 O2 Saturation: 95 (ra @ rest) Blood Pressure: 152/84 - Physical Exam General Appearance: positive: Moderate distress, Anxious, Lethargic Eyes Bilateral: positive: Normal inspection ENT: negative: Pharyngeal erythema Neck: positive: No JVD, Trachea midline Cardiovascular: positive: Regular rate & rhythm Respiratory: positive: No respiratory distress Abdomen: positive: Soft, Abnml bowel sounds (decreased BS), Tenderness. negative: Mass Skin: positive: Pallor, Dryness Extremities: positive: No pedal edema Neurologic/Psychiatric: positive: Weakness, Depressed mood/affect, Flat affect Palliative Care - POLST Patient has POLST: No Pain: Pain worsening, Location (see HPI) Tiredness/Fatigue: Severe (7-10) Drowsiness/Sedation: Moderate (4-6) Nausea: Severe (7-10), With vomiting Depression: Severe (7-10) Anxiety: Severe (7-10) Dyspnea: Mild (1-3) Anorexia: Moderate (4-6) Sleep: Variable sleep pattern (patient reports awakens in pain) Feelings of wellbeing/Perceived Quality of Life: Poor, Worsening Performance Status: Unclear if patient's functional status due to fatigue and weakness or depression and withdrawal. I suspect somewhat a little bit of both. Patient is ambulatory roundhouse, does live in a two-story. I did find her in bed today. - Palliative Care Discussion: Patient presents is very annoyed having to participate in visit, answer ques tions. Reports she "feels like ". Says she only wants to get through this so that she can stay alive for her children, but when challenged that she needs to participate in the care plan to be able to have her treatment is effective as possible deflects this. Is very dismissive of any information given, instructions for follow-through, nor of Fern's expressed concerns. Follow-up downstairs with Mariella regarding care plan, instructions regarding safety and use of fentanyl given prior to patient, and reviewed again with caregiver. Mariella quite tearful, feeling overwhelmed, worried about the patient and her ongoing symptoms and her not participating and doing what providers and nurses have been telling her. Did discuss patient has some poor coping skills, it is not demond responsibility to make her to do anything, positive reinforcement given for the work that she is doing and support for the children. She will only be here another week, is quite concerned what is going to happen when returns given the problems in their relationship. Did discuss the patient became unresponsive, confused, fever or chills, to go ahead and call 911 and not to take on responsibility but to obtain help and/or evaluation if concerned. Results - Lab Results Lab results reviewed: Yes Fish Bones: 07/24/18 12:22 07/24/18 12:22 Lab and Imaging Results: Patient with alk phos 655; total protein 6.6, albumin 1.6 07/24 Impression and Recommendations - Palliative Care Impression: This is a 33-year-old young woman with stage IV colon cancer with hepatic static disease to liver, diverting colostomy, and high tumor burden. Patient presents with multiple psychosocial stressors, concern for coping skills, high anxiety, and difficulty with adherence to medications and treatment plan. Palliative car e attempting to provide support and rapport building as allowed by patient, she presents as quite overwhelmed and angry. Recommendations/Counseling Done: 1. Pain of neoplastic origin. I suspect this is multifactorial as well as existential in nature, will go ahead and titrate up slowly. Given patient's intermittent nausea and vomiting, she most likely would benefit from topical patch, for more consistent relief. Patient is also awakening in pain. We will start with fentanyl 12 mcg patch, prescription provided for 10 patches, instructed will follow up in a few days to see if need to titrate up to 25 which would be more equal analgesic given what she is reporting, though this is unclear exactly. Counseling provided regarding opioid safety, keeping it up from children, disposal of the patch correctly, as well as if it comes off to replace with a new patch not to replace the old patch. And placement in her upper supraclavicular chest area. David was able to verbalize instructions back, will have home health nurse review as well. 2. Constipation. Patient reports bowels are moving, given her most recent chemo I suspect would have more diarrhea, unclear if patient compliant with her bowel program. No stool in bag, slightly maroon liquid stool at stoma site. 3. Diabetes. Patient has been instructed both by specialist, home health, regarding management of blood sugars and the importance and the role with chemotherapy management and given her ongoing fluctuating symptoms of nausea, vomiting, and poor eating choices. Patient seems somewhat nonplussed and not engaged as far as follow-through regarding these instructions. 4. Protein calorie malnutrition. Patient continues to make poor food choices, is drinking sodas for fluid, had [employer] prior to my arrival and vomited up. When I was on my way out, she was asking for cookies and milk. Concern patient will continue her current patterns, despite outcome on health and symptoms 5. Medication adherence. Patient unable to really share which she has been taking, did relay she had not used her antiemetic, it was in her purse despite intermittent nausea and vomiting. Did discuss scheduling 3 times daily through the day, until nausea vomiting decreased, instructed on diet to decrease risk of nausea and vomiting, encourage fluid intake. Patient has received instructions multiple times both orally and written from multiple providers. 6. Advanced care planning. Patient has high anxiety regarding her serious illness, and risk of . to be coming home around [place], medical palliative care social welfare research worker involved, would be of best intent to have further plans made for the future in case of rapid demise. Very complex social situation, patient presents is somewhat unrealistic regarding ability to put pieces in place. Patient presents many barriers as far as further conversation and exploration of anxiety and depression. [facility] Time Spent: 30 minutes spent in 50% greater in counseling regarding pain management, opioid safety, use of the fentanyl patch management of nausea and vomiting, encouraged compliance with blood sugars, and anticipatory guidance.
== END 2018-07-24 23:59 | disposition home or self-care (01) ==
LOC: LAB.R 12:22
PROVIDERS: ATTEND Internal Medicine Hematology & Oncology
DX: C18.9 Malignant neoplasm of colon, unspecified (principal)
CPT/HCPCS: 80053; 85025

== ENCOUNTER 2018-07-30 12:50 | Outpatient (CLI) | payer OTHER | END 2018-07-30 12:51 | disposition home or self-care (01) | LOC: PC 12:50 | PROVIDERS: ATTEND Nurse Practitioner Adult Health | DX: Z51.5 Encounter for palliative care (principal); C18.9 Malignant neoplasm of colon, unspecified; C78.7 Secondary malignant neoplasm of liver and intrahepatic bile duct; G89.3 Neoplasm related pain (acute) (chronic); K59.00 Constipation, unspecified; R11.2 Nausea with vomiting, unspecified; E46 Unspecified protein-calorie malnutrition; Z91.19 Patient's noncompliance with other medical treatment and regimen; E11.9 Type 2 diabetes mellitus without complications; Z93.3 Colostomy status; Z79.4 Long term (current) use of insulin; Z79.891 Long term (current) use of opiate analgesic | CPT/HCPCS: 99348 ==

== ENCOUNTER 2018-08-06 11:45 | Outpatient (CLI) | payer OTHER ==
[2018-08-06 12:56] LABS: ALBUMIN 2.6 g/dL (3.2-5.5); ALBUMIN/GLOBULIN RATIO 0.5 (1.0-2.2); BILIRUBIN,TOTAL 0.4 mg/dL (0.2-1.0); CALCIUM 8.7 mg/dL (8.5-10.3); CREATININE 0.7 mg/dL (0.4-1.0); TOTAL PROTEIN 7.7 g/dL (6.7-8.2)
[2018-08-06 13:15] LABS: BASOPHILS # (AUTO) 0.1 10^3/uL (0.0-0.1); BASOPHILS % (AUTO) 1.2 %; EOSINOPHILS # (AUTO) 0.5 10^3/uL (0.0-0.7); EOSINOPHILS % (AUTO) 6.2 %; HGB - HEMOGLOBIN 10.9 g/dL (12.0-16.0); LYMPHOCYTES % (AUTO) 27.5 %; MEAN CORPUSCULAR HEMOGLOBIN 26.1 pg (27.0-31.0); MEAN CORPUSCULAR HGB CONC 32.2 g/dL (32.0-36.0); MEAN CORPUSCULAR VOLUME 81.2 fL (81.0-99.0); MEAN PLATELET VOLUME 6.7 fL (7.9-10.8); MONOCYTES # (AUTO) 0.7 10^3/uL (0.0-1.0); MONOCYTES % (AUTO) 9.2 %; NEUTROPHILS # (AUTO) 4.1 10^3/uL (1.5-6.6); NEUTROPHILS % (AUTO) 55.9 %; PLT - PLATELET COUNT 536 10^3/uL (130-450); RED BLOOD COUNT 4.19 10^6/uL (4.20-5.40); RED CELL DISTRIBUTION WIDTH 20.4 % (12.0-15.0); WHITE BLOOD COUNT 7.3 x10^3/uL (4.8-10.8)
== END 2018-08-06 23:59 | disposition home or self-care (01) ==
LOC: LAB.R 11:45
PROVIDERS: ATTEND Internal Medicine Hematology & Oncology
DX: C18.9 Malignant neoplasm of colon, unspecified (principal); Z48.815 Encounter for surgical aftercare following surgery on the digestive system
CPT/HCPCS: 80053; 85025

== ENCOUNTER 2018-08-17 17:20 | Outpatient (CLI) | payer OTHER ==
--- NOTE | 2018-08-17 17:47 | CONSULTATION NOTE ---
Palliative Care Follow Up - Referral Referring Provider: Dr. Liam Reyes Time of Visit: 3067-9524 Referral setting: Home (It is a taxing considerable effort for the patient leave the home secondary to severe fatigue and generalized weakness. Patient is seen in her home setting with goal to facilitate rapport and include support. 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 She also has suspected mediastinal node metastases as well. She had a series of complex events including nausea and vomiting, weight loss several trips to the ED before being diagnosed at [facility] on 06/08/2018 for an obstructing colonic mass. She was transferred to [facility] where she received a diverting colostomy, and has received 2 rounds of her chemotherapy of oxaliplatin/leucovorin/5-FU continuous infusion. Patient has been inconsistent in her report of her symptoms, has had evidence of ongoing nausea and vomiting, though reports this is much better with her recent use of metoclopramide and ondansetron postchemotherapy. She reports her most severe symptom at this time was fatigue. She has a history of noncompliance, and continues to struggle with managing her type 1 diabetes diagnosed in her 20s with her first child. She reports she is monitoring more carefully, and has found the counseling from [facility] helpful. That she has been counseled multiple times regarding diet, she continues to eat a lot of fast food. But she is doing better with her hydration, and has not had any further weight loss. Patient presents with very poor understanding of her disease, last couple times a week that she has been fairly acutely ill. Today we are able to sit down and review what she remembers, understands, and is hoping for. Patient does understand she is getting aggressive chemotherapy, her goal is "to beat this", and remembers very little of her hospitalization or consults with the surgeon and oncologist. She has not had any experience in her own personal family or peer group of anyone who has had cancer, and has done very little as far as exploring information that has been given to her or on the Internet. Counseling provided regarding the implications of metastatic disease, the goal is to extend her quantity and quality of life, she was quite shocked she is "going to of this disease". Counseling provided in context of psychosocial support, things that are in her control, and the plan to manage going forward. Though on our first meeting 06/23 Had counseled regarding stage IV disease, chemotherapy, goals of care she has no recall of our conversations regarding this. We discussed her coping mechanisms, she tends to turn inward, has severe anxiety disorder, and difficulty processing these last few weeks particularly medical information. I suspect patient with her underlying anxiety and depression, recent acute illness, and feeling overwhelmed has sat with a significant level of denial as a protective mechanism. She does feel currently she is able to unpack some of this, and had multiple questions regarding her future and expectations. 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 He has been home for about a week and a half and has now left again. Her brother's girlfriend Mariella, who was available to care for the children, now is taking care of patient's brother who has had a burst appendix. She does have some family she could call on, but she reports she tends to not reach out. She is planning to hire some assistance for housekeeping and care for the children. She is quite anxious given the co mplexity of her situation to move her care closer to home, but this was not what she asked for her last visit. Medications/Allergies - Medications Home Medications: Ambulatory Orders Medication Instructions Recorded Confirmed Insulin Glargine,Hum.rec.anlog 40 unit SQ BID 02/13/16 07/17/18 [Lantus] Dextroamphetamine/Amphetamine 5 mg PO DAILY PRN 06/27/18 07/17/18 [Adderall 5 mg Tablet] Docusate Sodium 100 mg PO BID 06/27/18 07/17/18 Insulin Aspart [NovoLOG] 1 units SUBQ BID PRN MDD sliding 06/27/18 07/17/18 scale Polyethylene Glycol 3350 [Miralax] 17 gm PO DAILY PRN 06/27/18 07/17/18 clonazePAM [Clonazepam] 0.5 mg PO BID PRN 06/27/18 07/17/18 oxyCODONE [Roxicodone] 5 mg PO Q3HR PRN 06/27/18 07/17/18 Propranolol [Inderal] 10 mg PO BID 07/17/18 07/17/18 fentaNYL [Fentanyl 12mcg patch] 12 mcg TOP .3 DAY 07/30/18 07/30/18 - Allergies Allergies/Adverse Reactions: Allergies Allergy/AdvReac Type Severity Reaction Status Date / Time No Known Drug Allergies Allergy Verified 03/28/18 05:17 Review of Systems - Constitutional Constitutional: reports: Fatigue (feels was worse this round of chemotherapy; significantly impacted), Weight stable (140). denies: Fever, Chills - Eyes Eyes: denies: Vision loss - Ears, Nose & Throat Ears, Nose & Throat: reports: Dry mouth - Cardiovascular Cardiovascular: reports: Decr. exercise tolerance - Respiratory Respiratory: reports: SOB with exertion, Other (patient continues to smoke 5-6 cig/day). denies: SOB at rest - Gastrointestinal Gastrointestinal: reports: Abdominal pain, Nausea, Vomiting (2-3 days with chemotherapy but feels was better with two antiemetics), Bloating, Good appetite. denies: Constipation - Musculoskeletal Musculoskeletal: reports: Stiffness, Muscle weakness - Integumentary Integumentary: reports: Dryness - Neurological Neurological: reports: General weakness - Psychiatric Psychiatric: reports: Depression, Anxiety, Other (Type I diabetes; reports better control with " new approach" taught at clinic) - Endocrine Endocrine: reports: Other - Hematologic/Lymphatic Hematologic/Lymphatic: reports: Anemia - All Other Systems All Other Systems: reports: Reviewed and negative Physical Exam - Physical Exam General Appearance: positive: No acute distress Eyes Bilateral: positive: Normal inspection ENT: positive: No signs of dehydration Neck: positive: No JVD, Trachea midline Respiratory: positive: No respiratory distress Skin: positive: Pallor, Dryness Extremities: positive: No pedal edema Neurologic/Psychiatric: positive: Oriented x3, Weakness Palliative Care - POLST Patient has POLST: No Pain: Pain improved, Location (On fentanyl 12 mcg patch, is using oxycodone 5 mg 3-4 times a day with good control. Reports pain is low-grade achy located in the lower pelvis area. Feels her pain is currently controlled and appreciates a steady state of the fentanyl patch. At this point in time no indications to titrate upwards.) Tiredness/Fatigue: Moderate (4-6) Drowsiness/Sedation: None Nausea: Mild (1-3) Depression: Moderate (4-6) Anxiety: Severe (7-10) Dyspnea: Mild (1-3) Anorexia: Mild (1-3) Constipation: Yes, Opoid induced, Intermittent constipation Performance Status: Patient remains somewhat sedentary, is ambulatory in the house, does him in a two-story with bedroom upstairs. She is able to attend to her own ADLs, but now is responsible for providing meals and support for her 3 kids at home. - Palliative Care Discussion: Please see HPI. Majority of the visit was spent on counseling regarding patient's understanding of her disease, goals of care, and concerns for the future. Discussed metastatic colon cancer is treatable, not curable. Wide range of responses, is getting aggressive therapy with hope to control both the cancer to improve her quality of life and prolong her quantity. Patient actually presented with poor understanding regarding the severity of her illness, discussed at length hoping for the best, ways to support herself and her herself and treatment as well as prepare her family. Her is just taken a job that includes traveling 2 weeks with few days in between, feels they need to reevaluate this in light of this news. Counseling provided regarding grief and concern for her children, will be receiving scans after 3-4 treatment cycles, this is not defined and oncology notes. Discussed at that point in time may have better indication of her response, and discussed the chronicity of ongoing treatment with metastatic disease. Even the burden of travel, need for frequent appointments, and most likely discharge of home health in the next few weeks patient would benefit from receiving care closer to home. Patient was hoping to arrange this before her next treatment cycle, suspect this is too short of notice, but will work with navigator to transition her care. Patient presents with complex psychosocial history, anxiety disorder, and I do have concern regarding managing her ability manage the complexity of her diagnosis both physically and mentally. Results - Lab Results Lab results reviewed: Yes Impression and Recommendations - Palliative Care Impression: This is a complex 33-year-old young woman with stage IV colon cancer with metastatic disease to her liver, diverting colostomy, italo metastases. Patient presents with high anxiety, poor insight to the seriousness of her condition, as well as multiple psychosocial stressors. Palliative care providing counseling regarding anticipatory guidance, understanding of disease, and setting ground work for goals of care. Recommendations/Counseling Done: 1. Pain of neoplastic origin. Patient currently on fentanyl 12 mcg patch, with oxycodone 5 mg in 3-4 as needed for breakthrough pain. New Rx provided for both fentanyl and oxycodone for 200 tabs. In review of regimen patient feel current pain control adequate, no changes to regimen made today. 2. Generalized anxiety disorder. Patient is using the clonazepam 0.5 mg mostly in the evening. Counseling provided and reviewed patient's current coping mechanisms, support, and understanding of current illness and treatment plan. Patient able to engage and ask appropriate questions today, and fortunately did not remember or recall information regarding the seriousness of her illness and goal of treatment palliative not curative. Counseling provided regarding hoping for the best, focusing on treatment and things that are in control, recognizing and hopeful for new treatments down the road, but balancing the need to address issues regarding children, advanced care planning, and finding ways to improve her support network and coping mechanisms. Would like some resources/groups for other young people going through similar situation. Will locate and send to patient. 3. Hypertension. Patient stopped propranolol, felt it was adding to her shakiness and tremors. Blood pressures remain somewhat elevated, home health taking twice a week, last 3 readings were 134/106; 150/96; 170/90 with pulse ranging between 87 and 100. Given patient's fluctuating status, we will continue to monitor, worried about adding to her fatigue but may benefit from small dose of metoprolol. 4. Stage IV metastatic colon cancer with liver metastases. Patient is completed 2 rounds of chemotherapy, experiencing significant fatigue with second. Both times caregivers have reported significant nausea and vomiting, patient denies. Patient understands the need to hydrate and eat well previous to chemotherapy, she is scheduled again for next week. Given the complexity of her current situation, does want to transition care closer to home, discussed moving to [facility] where oncologist coming from [place]. This would decrease her transportation issues, particularly when she is discharged from home health for pump removal and lab draws. Call left for navigator to assist with transition and set up appointments, most likely unable to prior to next week. 5. Advanced care planning. Initiated conversation regarding need to focus on consulting about getting legal and financial issues defined, not father of two boys. She will be talking her regarding information now of understanding of her seriousness of her illness, and looking at reconsidering current plan for his employment that keeps him away to in 3 weeks at a time. They have been 7 years, and have a daughter between the 2 of them, who just turned 6. As well as the 2 older boys. We will need to explore also other avenues of support, particularly in light of need for assistance with childcare, housekeeping, and transportation. Patient hesitant to have further meetings with medical palliative care social work professor, though has met with her in the past unclear if well except. Time Spent: 60 minutes with good and 50% of this done in counseling regarding disease, treatment, implications, and anticipatory guidance as well as pain and symptom management. Agreed to meet again in 2 weeks after chemotherapy, and meantime will assist with transitioning [place] [facility] [place] Will enlist HH support to clarify medications current use. [facility] home [facility]
== END 2018-08-17 17:21 | disposition home or self-care (01) ==
LOC: PC 17:20
PROVIDERS: ATTEND Nurse Practitioner Adult Health
DX: Z51.5 Encounter for palliative care (principal); G89.3 Neoplasm related pain (acute) (chronic); C18.9 Malignant neoplasm of colon, unspecified; C78.7 Secondary malignant neoplasm of liver and intrahepatic bile duct; C77.9 Secondary and unspecified malignant neoplasm of lymph node, unspecified; E10.9 Type 1 diabetes mellitus without complications; F41.1 Generalized anxiety disorder; R11.2 Nausea with vomiting, unspecified; T45.1X5D Adverse effect of antineoplastic and immunosuppressive drugs, subsequent encounter; I10 Essential (primary) hypertension; R53.83 Other fatigue; R53.1 Weakness; F17.210 Nicotine dependence, cigarettes, uncomplicated; Z93.3 Colostomy status; Z74.2 Need for assistance at home and no other household member able to render care; Z79.4 Long term (current) use of insulin; Z79.891 Long term (current) use of opiate analgesic
CPT/HCPCS: 99350

== ENCOUNTER 2018-08-27 13:23 | Outpatient (CLI) | payer OTHER | END 2018-08-27 23:59 | disposition home or self-care (01) | LOC: LAB.WCP 13:23 → LAB.R 23:59 | PROVIDERS: ATTEND Nurse Practitioner Adult Health | DX: C18.9 Malignant neoplasm of colon, unspecified (principal) | CPT/HCPCS: 82378 ==

== ENCOUNTER 2018-10-31 13:36 | Outpatient (CLI) | payer OTHER ==
--- NOTE | 2018-10-31 19:28 | CONSULTATION NOTE ---
Palliative Care Follow Up - Referral Referring Provider: Dr. Liam Reyes Time of Visit: [id number] Referral setting: [facility] [place] Referral Reason: Pain of neoplastic origin/anxiety - Information Sources Records reviewed: Previous records reviewed History/Review of Systems obtained from: Patient Exam limitations: No limitations - History of Present Illness Update Brief HPI Update: This is a complex 33-year-old woman who was diagnosed with metastatic stage IV colon cancer with extensive liver and italo metastases. She did present with a bowel obstruction status post diverting colostomy. She continues with FOLFOX and has just completed cycle 7. She is receiving her care with Dr. Misti edwards at [facility], she was going to transfer her care up here to [facility], but ran into insurance issues and is worried about losing her current referral if she were to transition and so this has been put on hold.She continues to struggle with managing her type I diabetes, and managing her family life and obligations within the context of her fatigue. She does have ongoing lower abdominal pain, recent titration to fentanyl 25 mcg patch does appear to be effective. She also has severe anxiety disorder, easily triggered with her current situation and her concern about her children. Social History - Living Situation Living arrangement: At home Living Situation: With spouse/s.o., With family Support System: Patient has 3 children, her is recently transition to a new job in [place]. He continues though to work during the day, but is able to take time off during her chemotherapy days. She does have support through her boyfriend's girlfriend Mariella, who has been available and supportive of both patient and her children. Patient does identify some friends she has been able to access for support and assistance. Patient identifies multiple stressors, including finances, meeting the needs of her family, and her ongoing anxiety and feeling overwhelmed. Medications/Allergies - Medications Home Medications: Ambulatory Orders Medication Instructions Recorded Confirmed Insulin Glargine,Hum.rec.anlog 40 unit SQ BID 02/13/16 11/02/18 [Lantus] Dextroamphetamine/Amphetamine 5 mg PO DAILY PRN 06/27/18 11/02/18 [Adderall 5 mg Tablet] Docusate Sodium 100 mg PO BID 06/27/18 11/02/18 Insulin Aspart [NovoLOG] 1 units SUBQ BID PRN MDD sliding 06/27/18 11/02/18 scale Polyethylene Glycol 3350 [Miralax] 17 gm PO DAILY PRN 06/27/18 11/02/18 clonazePAM [Clonazepam] 0.5 mg PO BID PRN 06/27/18 11/02/18 oxyCODONE [Roxicodone] 5 mg PO Q3HR PRN 06/27/18 11/02/18 fentaNYL [Fentanyl 12mcg patch] 25 mcg TOP .3 DAY 07/30/18 11/02/18 Metoclopramide HCl 5 mg PO QID PRN 11/02/18 11/02/18 Ondansetron [Zuplenz] 8 mg PO Q8HR PRN 11/02/18 11/02/18 - Allergies Allergies/Adverse Reactions: Allergies Allergy/AdvReac Type Severity Reaction Status Date / Time No Known Drug Allergies Allergy Verified 03/28/18 05:17 Review of Systems - Constitutional Constitutional: reports: Fatigue, Weight stable. denies: Fever, Chills - Ears, Nose & Throat Ears, Nose & Throat: denies: Mouth lesions - Cardiovascular Cardiovascular: reports: Exertional dyspnea, Decr. exercise tolerance - Respiratory Respiratory: reports: SOB with exertion, Other (continues to smoke). denies: SOB at rest - Gastrointestinal Gastrointestinal: reports: Constipation (intermittent; does try and soften if too firm; not consistent in taking bowel meds), Nausea (feels better this last time after chemotherapy), Good appetite - Musculoskeletal Musculoskeletal: reports: Muscle weakness - Integumentary Integumentary: reports: Dryness - Neurological Neurological: reports: General weakness - Psychiatric Psychiatric: reports: Anxiety (severe anxiety; feels clonazepam helps) - Endocrine Endocrine: reports: Other (diabetes type 1; perceives she is doing a good job; is eating more regularly) - Hematologic/Lymphatic Hematologic/Lymphatic: denies: Recurrent infections - All Other Systems All Other Systems: reports: Reviewed and negative Physical Exam - Physical Exam General Appearance: positive: Alert, Anxious Eyes Bilateral: positive: Normal inspection ENT: positive: No signs of dehydration. negative: Oral lesions Neck: positive: No JVD, Trachea midline Respiratory: positive: No respiratory distress Abdomen: positive: Other (colostomy) Skin: positive: Pallor, Dryness Extremities: positive: No pedal edema Neurologic/Psychiatric: positive: Oriented x3, Flat affect, Other (anxious) Palliative Care - POLST Patient has POLST: No Pain: Pain improved, Location (Reports severity of pain at worst now 5 out of 10; this is when she usually takes an oxycodone. She has been using 2-3 tabs in 24 hours, she is currently on fentanyl Any 5 mcg. She reports she did have some increased side effects the first 3 or 4 days, but is doing well. Her pain is located low in the pelvic region describes as a band that feels somewhat tight. Does feel currently on her regimen it is well controlled.) Tiredness/Fatigue: Moderate (4-6) Drowsiness/Sedation: None Nausea: None Depression: None Anxiety: Moderate (4-6) Dyspnea: None Anorexia: None Sleep: Variable sleep pattern Constipation: Yes, Opoid induced, Intermittent constipation Feelings of wellbeing/Perceived Quality of Life: Fair, Improved Performance Status: Patient reports even though her is home, she is still doing the majority of the caregiving. She does have some friends and family that helps, has been is been able to take Monday and the weekend off on that week she has chemotherapy. She reports she has decreased functional status and severe fatigue for several days, is managing her own ADLs. Does admit to poor activity tolerance. - Palliative Care Discussion: Patient's last palliative care visit was canceled secondary severe side effects of her chemotherapy as well as severe anxiety. Appointment before had to be abandoned secondary to inclement weather. In discussing patient's willingness or desire to continue to meet, 1 of her anxieties is her financial stressors. She is worried as the original referral was for 6 visits only. We did discuss in the context of this that I can see her more often I would just request more visits, this seemed to reassure her. Did offer her to transition to palliative care team at [facility], but given the need for ongoing scripts and and previous relationship she will continue to see me at least every 2 months, with the goal for monthly if possible given her schedule with chemotherapy and managing her children. Today she presents with her daughter Malika who is 5, making conversation somewhat difficult to be robust. But patient had multiple questions particularly regarding chemotherapy, pending possible surgery for her liver, patient has low health literacy and high anxiety so working with in her framework is important. Patient expressing her ongoing gnawing anxiety regarding her children, their future, and how best to respond to them. She reports they are making arrangements for 2 older boys to go to a camp for children with parents with cancer. They are also planning a vacation after school is out and she is very much looking forward to that. We discussed it is important to be helpful, wanting to know how to respond her kids, when they talk about her getting better. Suggested reassuring them that she is doing the very best she can to get better. Did provide her with resources for talking to children, support group online, as well as [facility] to call when she is feeling overwhelmed or with severe anxiety. Left to open the door to follow-up with myself if needed. Results - Lab Results Lab results reviewed: Yes Impression and Recommendations - Palliative Care Impression: This is a complex 33-year-old woman with stage IV colon cancer with metastatic disease to her liver, italo metastases, and diverting colostomy secondary to obstruction. Patient with high symptom burden of anxiety, fatigue, pain, and depression. Palliative care providing support and counseling regarding pain and symptom management and anxiety. Recommendations/Counseling Done: 1. Pain of neoplastic origin. Patient currently on fentanyl 25 mcg patch, oxycodone 5 mg every 3 hours for breakthrough pain, patient has been compliant, follow-up with prescription monitoring system. Did have patient sign pain contract with expectation to use one prescriber and when pharmacy, patient verbalizes understanding. Patient feels current regimen with recent titration is adequate. Patient doing better with the reintroduced reduction of Adderall 5 mg twice daily for her ADHD as well as managing some sedation. 2. Generalized anxiety disorder. Patient quite resistant to referral for fur ther counseling and support, given cancer [facility] for phone support, support group resources, as well as resource for talking to your children. When dissected down, it is about her children, how best to manage and support them in the context of her illness. Counseling provided to normalize her current feelings of grief and loss as well as to encourage and support her in hopefulness. 3. Fatigue, this is multifactorial in origin. Patient is managing most of the household during time she is not on chemotherapy. She does feel supported by her , but is looking at hiring some housekeeping. Counseling provided to continue to find ways to delegate, pace her activities, and encourage on the weeks she is not having chemotherapy more physical activity. 4. Advanced care planning. When had spoken to previously for scheduling visit, reports that they have taking care of legal and financial issues. Did not revisit this during our visit today, patient setting goals for family gatherings encouraged to continue to look at things that bring her comfort and enjoy. We will continue to follow patient, and address issues as they arise giving her the ability to pace conversation. Time Spent: 45 minutes with greater than 50% of this done in counseling regarding patient's pain, initiated pain contract, explored and supported patient with her anxiety, and let patient guide the anticipatory guidance through her questions
== END 2018-10-31 13:37 | disposition home or self-care (01) ==
LOC: PC 13:36
PROVIDERS: ATTEND Nurse Practitioner Adult Health
DX: Z51.5 Encounter for palliative care (principal); Z79.4 Long term (current) use of insulin; C18.9 Malignant neoplasm of colon, unspecified; Z90.49 Acquired absence of other specified parts of digestive tract; G89.3 Neoplasm related pain (acute) (chronic); C78.7 Secondary malignant neoplasm of liver and intrahepatic bile duct; C77.9 Secondary and unspecified malignant neoplasm of lymph node, unspecified; Z93.3 Colostomy status; Z79.899 Other long term (current) drug therapy; E10.9 Type 1 diabetes mellitus without complications; Z79.891 Long term (current) use of opiate analgesic; Z72.0 Tobacco use; F32.9 Major depressive disorder, single episode, unspecified; F90.9 Attention-deficit hyperactivity disorder, unspecified type; F41.1 Generalized anxiety disorder; Z63.79 Other stressful life events affecting family and household; R53.83 Other fatigue
CPT/HCPCS: 99215

== ENCOUNTER 2018-10-31 14:17 | Outpatient (CLI) | payer OTHER ==
[2018-10-31 14:32] LABS: BASOPHILS # (AUTO) 0.1 10^3/uL (0.0-0.1); BASOPHILS % (AUTO) 1.7 %; EOSINOPHILS # (AUTO) 0.4 10^3/uL (0.0-0.7); EOSINOPHILS % (AUTO) 4.4 %; HGB - HEMOGLOBIN 13.8 g/dL (12.0-16.0); LYMPHOCYTES # (AUTO) 2.3 10^3/uL (1.5-3.5); LYMPHOCYTES % (AUTO) 27.8 %; MEAN CORPUSCULAR HEMOGLOBIN 29.5 pg (27.0-31.0); MEAN CORPUSCULAR HGB CONC 33.4 g/dL (32.0-36.0); MEAN CORPUSCULAR VOLUME 88.2 fL (81.0-99.0); MEAN PLATELET VOLUME 7.3 fL (7.9-10.8); MONOCYTES % (AUTO) 12.4 %; NEUTROPHILS # (AUTO) 4.4 10^3/uL (1.5-6.6); NEUTROPHILS % (AUTO) 53.7 %; PLT - PLATELET COUNT 237 10^3/uL (130-450); RED BLOOD COUNT 4.69 10^6/uL (4.20-5.40); RED CELL DISTRIBUTION WIDTH 16.9 % (12.0-15.0); WHITE BLOOD COUNT 8.3 x10^3/uL (4.8-10.8)
[2018-10-31 14:55] LABS: ALBUMIN 3.5 g/dL (3.2-5.5); ALBUMIN/GLOBULIN RATIO 0.9 (1.0-2.2); BILIRUBIN,TOTAL 0.7 mg/dL (0.2-1.0); CALCIUM 9.3 mg/dL (8.5-10.3); CREATININE 0.5 mg/dL (0.4-1.0); TOTAL PROTEIN 7.5 g/dL (6.7-8.2)
== END 2018-10-31 14:18 | disposition home or self-care (01) ==
LOC: LAB 14:17
PROVIDERS: ATTEND Internal Medicine Hematology & Oncology
DX: C18.9 Malignant neoplasm of colon, unspecified (principal)
CPT/HCPCS: 36415; 80053; 85025

== ENCOUNTER 2018-12-20 11:15 | Outpatient (CLI) | payer OTHER ==
--- NOTE | 2018-12-20 12:46 | CONSULTATION NOTE ---
Palliative Care Follow Up - Referral Referring Provider: Dr. Liam Reyes Time of Visit: 11:15 -12 [place] setting[place] [facility] [place]erral Reason: Metastatic Colon cancer/liver mets/pain of neoplastic origin - Information Sources Records reviewed: Previous records reviewed History/Review of Systems obtained from: Patient Exam limitations: No limitations - History of Present Illness Update Brief HPI Update: This is a complex 33-year-old woman with adenocarcinoma of the colon, originally presenting with bowel obstruction status post diverting colostomy. Her primary tumor is located in her left colon. She has extensive known liver mets and italo mets, and initiated chemotherapy with FOLFOX on 07/25, and has completed 9 cycles cycles. She has been receiving her care with Dr. Chappell at [facility]. This is been complicated by her social situation, and need to travel downtown. She had been hopeful though that she would qualify for some more extensive treatment, and was presented to tumor conference on 12/05. Her most recent imaging did show documented reduction in liver lesions, however there was disease present in all her liver segments. There is also increase in the size of the portocaval adenopathy compared to previous imaging and was confirmed when reviewed at conference. She has documented T3 left-sided tumor as well as adnexal mass which appeared cystic in similar location but larger to previous adnexal cysts. This news she was not eligible for surgery, sent her in somewhat of a tailspin, she had been hoping for something more aggressive to improve her prognosis. She is essentially shut down for several weeks, missed her cycle for her next chemotherapy. Elizabeth Martell PA-C reached out to see if I had been in touch with her, I had refilled her prescriptions with the expectation of of visit the next week, as she had just received the news. I did make contact with her earlier this week, she wanted to transition her care up here to [facility], as it would be easier on her family and her treatment is fairly predictable at this point. I did discuss with her the importance of though treatment is still palliative in nature, to extend her prognosis and quality of life she needs to be adherent to the schedule. I am working with her director case management and oncology shipping manager, to expedite transition so she can get started next week. She did agree to visit, and presents with progressive symptom burden. Reports her pain has slowly escalated over the last couple weeks, she does have a new pain mid thoracic area on both sides of the spine, that has increased in intensity and created spasms. She has had no change in motor function, bowel/colostomy is working without difficulty, and she is voiding without problems. She has needed her oxycodone 1 tab every 4 hours [id number], as well has added an extra clonazepam in secondary to spasmatic component of pain. Her baseline pain actually is not in her left lower quadrant but her right mid abdominal area, tender with palpation, and does have discomfort in her right upper quadrant in the liver area. She gets very discouraged as trying to balance the pain medications and sedation, she has significant fatigue, both which have limited her ability to drive and her activity tolerance. She is currently on fentanyl 25 mcg patch, oxycodone 5 mg 1 every 4 hours which she is consistently using, she has trialed 2 tabs but this results in vomiting. She reports her worst pain is upon awakening, is unable to tell what makes it better or worse. She describes the back pain not only a spasm but as nerves on fire. She also has diabetes type 1, she reports her blood sugars "fine". Patient has been very resistant to tight control of glucose, she has worked with endocrinology/diabetes team at . Patient admits to escalating anxiety, difficulty coping, she prefers information and only short bites, and likes to have control over how much is coming her way. Social History - Living Situation Living arrangement: At home Living Situation: With spouse/s.o., With family Support System: Patient does have a 12-year-old and 10-year-old boy, as well as a 6-year-old girl. They have hired a nanb[employer]ana to help her with homework and driving to school. They are looking at some family counseling, she is looking forward to this. As she does feel "scared" talking to her kids, though she reports "they know". has been very overwhelmed, taking care of the kids, working more than full-time, he has been able to take time off to take care of Samantha during chemotherapy. He has a new job, and feels quite grateful for this. He reports she has been having more difficulty with anxiety, coping, and irritability and has had trouble getting her to commit to restarting chemotherapy.They have minimal support, and financial stressors. Relative care social worker palliative care at [facility], has been trying to make contact, but patient is often not open to sharing. Medications/Allergies - Medications Home Medications: Ambulatory Orders Medication Instructions Recorded Confirmed Insulin Glargine,Hum.rec.anlog 40 unit SQ BID 02/13/16 12/20/18 [Lantus] Dextroamphetamine/Amphetamine 5 mg PO DAILY PRN 06/27/18 11/02/18 [Adderall 5 mg Tablet] Docusate Sodium 200 mg PO BID 06/27/18 12/20/18 Insulin Aspart [NovoLOG] 1 units SUBQ BID PRN MDD sliding 06/27/18 12/20/18 scale Polyethylene Glycol 3350 [Miralax] 17 gm PO DAILY PRN 06/27/18 12/20/18 clonazePAM [Clonazepam] 0.5 mg PO TID 06/27/18 12/20/18 oxyCODONE [Roxicodone] 5 - 10 mg PO Q3HR PRN 06/27/18 12/20/18 fentaNYL [Fentanyl 12mcg patch] 37.5 mcg TOP .3 DAY 07/30/18 12/20/18 Metoclopramide HCl 5 mg PO QID PRN 11/02/18 12/20/18 Ondansetron [Zuplenz] 8 mg PO Q8HR PRN 11/02/18 12/20/18 - Allergies Allergies/Adverse Reactions: Allergies Allergy/AdvReac Type Severity Reaction Status Date / Time No Known Drug Allergies Allergy Verified 03/28/18 05:17 Review of Systems - Constitutional Constitutional: reports: Fatigue, Weight gain (reports 15 pound weight gain recently; eating better with no chemo), Other [facility] denies: Fever, Chills - Ears, Nose & Throat Ears, Nose & Throat: reports: Dry mouth - Cardiovascular Cardiovascular: reports: Decr. exercise tolerance. denies: Edema - Respiratory Respiratory: reports: Other (patient continues to smoke). denies: SOB at rest - Gastrointestinal Gastrointestinal: reports: Nausea (with first few days of chemotherapy only), Good appetite, Other (colostomy moving regularly;). denies: Constipation - Genitourinary Genitourinary: denies: Dysuria, Frequency, Incontinence - Musculoskeletal Musculoskeletal: reports: Back pain (new; gradually increasing lower thoracic area; spasms located near spine; bilateral in nature; present about 7-10 days), Muscle weakness - Integumentary Integumentary: reports: Dryness - Neurological Neurological: reports: General weakness, Headache - Psychiatric Psychiatric: reports: Depression, Anxiety. denies: Suicidal - Endocrine Endocrine: reports: Diabetes type 2 (patient reports BS "have been fine" is unable to report numbers; feels she is eating well) - Hematologic/Lymphatic Hematologic/Lymphatic: denies: Blood clots, Bleeding tendencies, Recurrent infections Physical Exam - Vital Signs Temperature: 98.0 C Pulse Rate: 116 Respiratory Rate: 18 O2 Saturation: 97 (ra @ rest) Blood Pressure: 152/78 - Physical Exam General Appearance: positive: Mild distress, Anxious Eyes Bilateral: positive: Normal inspection ENT: positive: No signs of dehydration Neck: positive: No JVD, Trachea midline Cardiovascular: positive: Regular rate & rhythm, Tachycardia (patient has consistently been elevated) Respiratory: positive: No respiratory distress, Breath sounds nml Abdomen: positive: Soft, Nml bowel sounds, Tenderness (noted tenderness right upper quadrant; midabdominal to right of colostomy-no masses appreciated; stoma pink and healthy; firm stool in bag brown) Skin: positive: Pallor, Dryness Extremities: positive: No pedal edema Neurologic/Psychiatric: positive: Oriented x3, Weakness, Depressed mood/affect, Flat affect (perked up some by end of visit;) Palliative Care - POLST Patient has POLST: No Pain: Pain worsening, Location (current pain new at lower thoracic back area; spasm like in nature, feels clonzepam gives most relief in combination with oxycodone; baseline pain mid abd/right upper and lower quadrant: "clock watching" for four hours. Has found 2 tabs too many, but if take about 1.5 hours apart for second one does not make her "vomit". Using 25-30 mg/24 hours with pain poorly controlled) Tiredness/Fatigue: Severe (7-10) Drowsiness/Sedation: Moderate (4-6) Nausea: Mild (1-3) (mostly only with chemo or pain meds occasionally) Depression: Severe (7-10) Anxiety: Severe (7-10) (has been using clonazepam 0.5 mg TID with increased stress of poor prognosis; also to augment pain relief) Dyspnea: Mild (1-3) Anorexia: None Sleep: Variable sleep pattern Constipation: Yes, Opoid induced, Intermittent constipation Feelings of wellbeing/Perceived Quality of Life: Poor, Worsening Performance Status: Patient is ambulatory in the house, is less able to participate in household tasks. This is limited both by her fatigue and by her pain. She reports she spends a significant amount time sleeping and spending time on the couch.She is able to shower and attend to ADLs. - Palliative Care Discussion: I last met with patient 10/31, unfortunately she brought her little girl with her. Her conversation was somewhat stilted and limited. Did ask patient permission to ask her difficult questions, she does easily sit down. She does understand the seriousness of her illness, that she is going to be taking chemotherapy until she dies, this is very overwhelming for her. She dislikes the chemo significantly, as she reports it causes severe all over pain flare for about 2 days, notices it right away with initiation of the chemo, she reports she takes extra medication before she gets there, and almost has to lay in a position to tolerate it. He says she has toyed with not continue with treatment, but feels that is not fair to her family. She does feel like her cancer is progressing, she is quite distressed. They do have a family vacation planned from January 21-, she is looking forward to this. Patient resistant to any significant amount of information, but did talk fairly frankly that she needs to be adherent to her chemo regimen, to be able to extend what is possible, of time that she has. She did verbalize understanding, and is willing to restart, but feels it would be of great benefit to her family and herself to move her care up to [facility]. She tends to not want to accept help, or depend on others, she is trying to "be strong". She feels like she needs to model this for her kids. She reports she can be very angry and irrational particularly with her . Did touch base with her regarding pending appointments. He does confirm her pain has been escalating, requested that they reach out and symptoms are not controlled. He reports that is quite stressful, that she is quite angry and is having a difficult time. He feels somewhat overwhelmed and how best to support her, and appreciative if any help that can be offered. Impression and Recommendations - Palliative Care Impression: Complex 33-year-old woman with stage IV colon cancer with metastatic disease to her liver, italo mets, and diverting colostomy secondary to obstruction. Patient with high burden of increasing pain, anxiety, fatigue, and depression. Patient requesting to transition care up to [facility], secondary stressors on family and transportation issues. Palliative care providing support and counseling regarding pain and symptom management and anxiety. Recommendations/Counseling Done: 1. Pain of neoplastic origin. Pain has slowly escalated, now between moderate and severe in intensity. Patient currently on fentanyl 25 mcg patch, she has been taking oxycodone 5 mg every 4 hours [id number], in fact clock watching regarding this. She does have new areas of pain in her mid thoracic back area, along with her baseline pain mid right abdominal and right upper quadrant. It is unclear what is exacerbating factors, though she is quite uncomfortable and it builds to the day. Did offered to send her to [facility] and/or down to [facility] for further evaluation, as this is of concern. She would like to try first titration of medication, to see if she has relief. We did review signs or symptoms of acute concern to access emergency services. Patient will increase her fentanyl to 37, she does have some 12 mcg patches. She will apply it today. Will see patient next week, if this is been effective will rewrite prescription for 37.5, if need to titrate further will increase her to 50. Patient does get vomiting with taking 2 pills at a time, we did discuss hopefully with fentanyl, she will have better pain control and not need so much, but she could repeat if she did not get relief in 45 minutes to an hour oxycodone. 2. Severe anxiety disorder, poorly controlled. Patient is using her clonazepam 0.5 mg 3 times daily, both for her escalating anxiety and spasms in her back. She reports he is to give her good relief of both symptoms, he has been clonazepam dependent for long period of time. Counseling provided regarding concern of a combination of opioids and benzodiazepines, requested if her pain improved to try and stay within the twice daily dosing. Verbalized understanding. 3. Constipation. Patient does have firm stools, she is actually managed with just 200 mg of DOS twice daily, she does have MiraLAX if needed for breakthrough or recalcitrant constipation, this is been effective in the past. 4. Metastatic stage IV colon cancer. Counseling provided regarding even if no further surgical options, chemotherapy still remains important to continue, to manage her disease. Particularly since her pain is been escalating, have made several calls today through the [facility] [place], patient's director case management, and with oncology shipping manager Sherrell to expedite treatment for next week. Patient's is able to discontinue pump. 5. Fatigue, this is multifactorial in origin. She has had significant decrease in her ability to participate in household tasks, with increasing pain is more sedentary. They did have to hire someone to help with her daughter, she is looking at possibly increasing support in the home overall. 6. Advanced care planning. Allowed patient to pace conversation regarding her poor prognosis, anxiety and anger over her current disease state, and fears about her future and future for her children. She is hoping to build to participate in family counseling, she feels this would be of help overall. When I spoke to , they do not have a counselor picked out yet. Encouraged as Samantha willing to participate to move on this sooner than later. Also spoke with him about future planning regarding legal affairs. Time Spent: Time spent 45 minutes with greater than 50% of this done in counseling regarding opioid safety, titration for pain management, psychosocial support regarding anxiety and coping, and anticipatory guidance provided. Coordination of care with director case management at [place], [facility] oncology unit, and [facility]
== END 2018-12-20 11:16 | disposition home or self-care (01) ==
LOC: PC 11:15
PROVIDERS: ATTEND Nurse Practitioner Adult Health
DX: Z51.5 Encounter for palliative care (principal); G89.3 Neoplasm related pain (acute) (chronic); C18.9 Malignant neoplasm of colon, unspecified; C78.7 Secondary malignant neoplasm of liver and intrahepatic bile duct; C77.2 Secondary and unspecified malignant neoplasm of intra-abdominal lymph nodes; Z79.899 Other long term (current) drug therapy; R10.9 Unspecified abdominal pain; M54.6 Pain in thoracic spine; E10.9 Type 1 diabetes mellitus without complications; F41.9 Anxiety disorder, unspecified; F32.9 Major depressive disorder, single episode, unspecified; R53.83 Other fatigue; K59.03 Drug induced constipation; T40.605A Adverse effect of unspecified narcotics, initial encounter; Z93.3 Colostomy status; Z79.4 Long term (current) use of insulin; Z79.891 Long term (current) use of opiate analgesic
CPT/HCPCS: 99215

== ENCOUNTER 2018-12-26 09:37 | Outpatient (CLI) | payer OTHER ==
[2018-12-26 09:54] LABS: BASOPHILS # (AUTO) 0.1 10^3/uL (0.0-0.1); BASOPHILS % (AUTO) 0.7 %; EOSINOPHILS # (AUTO) 0.3 10^3/uL (0.0-0.7); EOSINOPHILS % (AUTO) 2.8 %; HGB - HEMOGLOBIN 11.9 g/dL (12.0-16.0); LYMPHOCYTES # (AUTO) 1.5 10^3/uL (1.5-3.5); MEAN CORPUSCULAR HEMOGLOBIN 29.1 pg (27.0-31.0); MEAN CORPUSCULAR HGB CONC 33.2 g/dL (32.0-36.0); MEAN CORPUSCULAR VOLUME 87.6 fL (81.0-99.0); MEAN PLATELET VOLUME 7.1 fL (7.9-10.8); MONOCYTES % (AUTO) 10.2 %; NEUTROPHILS # (AUTO) 7.2 10^3/uL (1.5-6.6); NEUTROPHILS % (AUTO) 71.3 %; PLT - PLATELET COUNT 361 10^3/uL (130-450); RED BLOOD COUNT 4.09 10^6/uL (4.20-5.40); WHITE BLOOD COUNT 10.2 x10^3/uL (4.8-10.8)
[2018-12-26 10:05] LABS: ALBUMIN 2.3 g/dL (3.2-5.5); ALBUMIN/GLOBULIN RATIO 0.5 (1.0-2.2); BILIRUBIN,TOTAL 0.8 mg/dL (0.2-1.0); CALCIUM 8.7 mg/dL (8.5-10.3); CREATININE 0.8 mg/dL (0.4-1.0); TOTAL PROTEIN 7.3 g/dL (6.7-8.2)
== END 2018-12-26 09:38 | disposition home or self-care (01) ==
LOC: LAB 09:37
PROVIDERS: ATTEND Nurse Practitioner Adult Health
DX: C18.9 Malignant neoplasm of colon, unspecified (principal)
CPT/HCPCS: 36415; 80053; 82378; 85025

== ENCOUNTER 2018-12-28 11:06 | Outpatient (CLI) | payer OTHER | END 2018-12-28 11:07 | disposition home or self-care (01) | LOC: PC 11:06 | PROVIDERS: ATTEND Nurse Practitioner Adult Health | DX: Z53.9 Procedure and treatment not carried out, unspecified reason (principal) ==

== ENCOUNTER 2019-01-03 16:15 | Outpatient (CLI) | payer OTHER ==
--- NOTE | 2019-01-03 17:54 | CONSULTATION NOTE ---
Palliative Care Follow Up - Referral Referring Provider: Dr. Liam Reyes Time of Visit: [id number] Referral setting: Home Referral Reason: Metastatic Colon Cancer with liver mets/Pain of neoplastic origin - Information Sources Records reviewed: Previous records reviewed History/Review of Systems obtained from: Patient Exam limitations: No limitations - History of Present Illness Update Brief HPI Update: This is a complex 33-year-old woman with adenocarcinoma of the colon, originally presenting with bowel obstruction status post diverting colostomy. Her primary tumor is located in the left colon, she has known extensive liver mets, and italo mets. She is receiving chemotherapy with FOLFOX, was initiated on 07/25/2018 has received now 10 cycles. She has recently transition to the [facility] clinic, there was a break in her treatment cycles, she did receive treatment last week after she is seen Dr. Mancilla. She had received her care at [facility] secondary she was hoping to be able to have surgery for her liver mets, but unfortunately the news of she is not a surgical candidate put her into a tailspin, and now she is transition to her care here to the [facility]. She found it quite actually convenient to receive her care here and less stressful. I seen her briefly in the [facility], but was doing quite poorly as far as emotionally and physically. And agreed for a visit today to further explore her pain management and psychosocial issues. Had been instructed to increase her fentanyl to 37 mcg when I saw her on . She chosen not to that she was worried about side effects and wanted to be awake and alert for Mother's Day. She reports that she did have increased nausea and vomiting for 3 days after her chemotherapy last week, she reports this is what is increased severity from her baseline previously. She does get severe pain during the infusion describes it like a "belly on fire". This is been consistent, and continues until it wears off over the next few days. I have given her prescription for ondansetron ODT, she felt that was more difficult than the pills, and she did have multiple ep isodes of vomiting, she reports there were multiple different triggers. She is feeling better, she is eating and drinking today, though she does feel like she has lost some more weight. Patient did initiate fentanyl 37 mcg patch, she is on her second patch change this has been more effective, she has been able to decrease her oxycodone use of 5 mg tabs down to 4 and 24 hours. She reports the oncologist gave her a "muscle relaxer" she is only taken 1, cautioned not to use more medications that are depressants, as she is already on clonazepam, she did acknowledge understanding. Her pain continues to be intense in the lower abdomen, fluctuating in status. Patient seems somewhat less anxious today, quite willing to engage in conversation regarding the seriousness of her illness, and her impending and impact on her family. Social History - Living Situation Living arrangement: At home Living Situation: With spouse/s.o., With family (.Patient has 2 boys 10 and 12, as well as a 6-year-old girl. They have hired a nanny to help her little girl with homework and driving to school. 's been very overwhelmed with taking care of the kids, working more than full-time, and taking care of Samantha. This is a new job. She has been to [place] for 10 years,He was in the [place] so she was used to taking care of the kids on her own. She is quite worried about him being able to manage after she is gone) Medications/Allergies - Medications Home Medications: Ambulatory Orders Medication Instructions Recorded Confirmed Insulin Glargine,Hum.rec.anlog 40 unit SQ BID 02/13/16 01/03/19 [Lantus] Docusate Sodium 200 mg PO BID 06/27/18 01/03/19 Insulin Aspart [NovoLOG] 1 units SUBQ BID PRN MDD sliding 06/27/18 01/03/19 scale clonazePAM [Clonazepam] 0.5 mg PO TID 06/27/18 01/03/19 oxyCODONE [Roxicodone] 5 - 10 mg PO Q3HR PRN 06/27/18 01/03/19 fentaNYL [Fentanyl 12mcg patch] 37.5 mcg TOP .3 DAY 07/30/18 01/03/19 Ondansetron [Zuplenz] 8 mg PO Q8HR PRN 11/02/18 01/03/19 Cyclobenzaprine [Flexeril] 10 mg PO BID PRN 12/26/18 01/03/19 Dextroamphetamine/Amphetamine 15 mg PO .NOON 01/03/19 01/03/19 [Adderall 15 mg Tablet] Dextroamphetamine/Amphetamine 30 mg PO QDBREAKFAST 01/03/19 01/03/19 [Adderall 30 mg Tablet] Polyethylene Glycol 3350 [Miralax] 17 mg PO DAILY PRN 01/03/19 01/03/19 Prochlorperazine Maleate 10 mg PO Q6HR PRN 01/03/19 01/03/19 [Compazine] - Allergies Allergies/Adverse Reactions: Allergies Allergy/AdvReac Type Severity Reaction Status Date / Time No Known Drug Allergies Allergy Verified 12/26/18 10:43 Review of Systems - Constitutional Constitutional: reports: Fatigue, Weakness, Weight loss. denies: Fever, Chills - Eyes Eyes: reports: Vision loss (reports vision changes with chemotherapy for a few days) - Ears, Nose & Throat Ears, Nose & Throat: denies: Mouth lesions - Cardiovascular Cardiovascular: reports: Decr. exercise tolerance - Respiratory Respiratory: reports: SOB with exertion. denies: SOB at rest - Gastrointestinal Gastrointestinal: reports: Abdominal pain, Constipation (has colostomy with formed stool), Nausea, Vomiting (with chemo resolving), Good appetite - Genitourinary Genitourinary: denies: Dysuria - Musculoskeletal Musculoskeletal: reports: Back pain (spasms improved with increase in patch of fentanyl), Stiffness, Muscle weakness - Integumentary Integumentary: reports: Dryness, Hair changes (thinning) - Neurological Neurological: reports: General weakness. denies: Headache, Dizziness - Psychiatric Psychiatric: reports: Depression, Anxiety. denies: Suicidal - Endocrine Endocrine: reports: Other (type 1 DM; reports "in control") - Hematologic/Lymphatic Hematologic/Lymphatic: reports: Anemia. denies: Recurrent infections - All Other Systems All Other Systems: denies: Reviewed and negative Physical Exam - Vital Signs Temperature: 96.8 C Pulse Rate: 97 Respiratory Rate: 18 O2 Saturation: 98 (ra @ rest) Blood Pressure: 170/90 - Physical Exam General Appearance: positive: Alert, Mild distress, Anxious Eyes Bilateral: positive: Normal inspection ENT: positive: No signs of dehydration Neck: positive: No JVD, Trachea midline Cardiovascular: positive: Regular rate & rhythm, Tachycardia Respiratory: positive: No respiratory distress Abdomen: positive: Soft, Nml bowel sounds, Tenderness Skin: positive: Pallor, Dryness Extremities: positive: No pedal edema Neurologic/Psychiatric: positive: Oriented x3, Weakness, Depressed mood/affect, Flat affect Palliative Care - POLST Patient has POLST: No POLST Status: Full Code Pain: Pain improved, Location (see HPI) Tiredness/Fatigue: Severe (7-10) Drowsiness/Sedation: Mild (1-3) Nausea: Mild (1-3) Depression: Moderate (4-6) Anxiety: Severe (7-10) Dyspnea: Mild (1-3) Anorexia: Mild (1-3) Sleep: Sleep improved Constipation: Yes, Opoid induced, Intermittent constipation Feelings of wellbeing/Perceived Quality of Life: Fair, Worsening Performance Status: Patient with poor activity tolerance, does spend most the time on the couch. On better day she is able to cook for her family, she does oversee their care, but is unable to participate much in their hands on. She is able to shower daily, she takes a daily nap but is able to be present with her children in the evening. She does feel like her functional status is declined, will put her at a PPS of 60% - Palliative Care Discussion: Patient actually in a fairly good mood today, though she is anxious she is willing to participate in conversation. We did explore her pending and impact on her family, she is quite worried about her children and what this "will do to them". They have not taken care of their legal/Sarah and guardianship. She does have access to may be legal, she does know she needs to take the next steps. We did discuss in the context of what would be supportive in the future, Legacy recording/writings, tried to break it down so she would feel like she could accomplish some of this. She very much wants to go on her family vacation on 01/21 to [place] they have rented a house, and her cousin will come to take care of the kids. She would need to modify her chemotherapy, we discussed in the context of priorities that this would be important for her and her family. I would be happy to follow-up with oncology clinic to help accommodate schedule. This was of relief for her. She feels quite out of control, she is always been a person is been able to take care of herself, her was in the [place] and she was the single parent. She feels like she is not there for her kids as much, is trying to be honest but kind. Her children are aware that she has cancer, and most likely not going to get better. Long discussion about her anxiety and depression, her ability to cope and triggers. Did explore her relationship and stressors on her as well, does acknowledge that she tends to turn inward and focus on herself during her stressful times. Results - Lab Results Lab results reviewed: Yes Impression and Recommendations - Palliative Care Impression: This is a very complex 33-year-old woman with stage IV colon cancer metastatic disease to the liver and italo mets, with a diverting colostomy secondary to obstruction. Patient's presents with improved pain management, continues with anxiety and fatigue as well as depression. Patient has transition care up to [facility], has found this much more convenient. She is struggling with how to cope given the severity and seriousness of her illness, and worried about impact of her on her family. Palliative care providing support and counseling regarding pain and symptom management and anticipatory guidance. Recommendations/Counseling Done: 1. Pain of neoplastic origin. Patient is getting improved pain management with the 37.5 mcg Fentanyl is using oxycodone for breakthrough pain. Did discourage her from using Flexeril, second to polypharmacy and patient's underlying use of clonazepam. Prescription provided for new fentanyl 37.5 mcg patches. Patient is feeling her pain is better controlled. 2. Severe anxiety disorder, poorly controlled. Patient continues to use her clonazepam 0.5 mg 3 times daily, she does feel that this is keeping it "manageable". She has been on clonazepam long-term. Counseling provided regarding concern again a combination of opioids and benzos, requested to try and decrease down to twice daily dosing now that she is feeling better. Verbalized understanding. Counseling provided regarding normalizing her current distress related to her cancer diagnosis and impact on her family. Explored other ways of coping, as well as setting short-term goals. 3. Constipation. Patient continues to have firm stools, but no bleeding noted. She continues to titrate accordingly. 4. Metastatic stage IV colon cancer with liver mets. Follow-up with oncology [facility] about patient's prolonged nausea vomiting, she did receive Aloxi, they may look at adding Decadron and will explore at her next next visit prior to her chemotherapy appointment. Also discussed scheduling regarding patient's goals of care for family vacation, they will get back to me with scheduled to be able to communicate to both her and herself. 5. Fatigue. This is multifactorial in origin, she does have significant tumor burden, as well as increasing pain. We did discuss her concerns around meal prep, managing family household tasks, and things and strategies that might better be able to manage this. 6. Advanced care planning. Again conversation allowing space to process current concerns regarding pending decline and impact on the family. We actually did initiate conversation regarding plans and costs, will get information about people's memorial to . There is still hoping for some family counseling, had passed on counselor to [place], but encouraged her to seek assistance for her kids to school counselors as well. Encouraged her to follow- up with the [place] legal to continue to work on her final wishes around guardianship and possessions that she wants to make sure goes to her daughter. Discussion regarding ongoing support for patient, does much better in the home setting, will set every other week visits for counseling and management of symptoms. Time Spent: 70 minutes was given 50% of this done in counseling regarding dose of care, pain and symptom management, counseling regarding safety polypharmacy, strategies for coping Legacy work.
== END 2019-01-03 16:16 | disposition home or self-care (01) ==
LOC: PC 16:15
PROVIDERS: ATTEND Nurse Practitioner Adult Health
DX: Z51.5 Encounter for palliative care (principal); G89.3 Neoplasm related pain (acute) (chronic); C18.6 Malignant neoplasm of descending colon; C78.7 Secondary malignant neoplasm of liver and intrahepatic bile duct; C77.2 Secondary and unspecified malignant neoplasm of intra-abdominal lymph nodes; Z93.3 Colostomy status; F41.9 Anxiety disorder, unspecified; F32.9 Major depressive disorder, single episode, unspecified; E10.9 Type 1 diabetes mellitus without complications; R11.2 Nausea with vomiting, unspecified; T45.1X5A Adverse effect of antineoplastic and immunosuppressive drugs, initial encounter; K59.00 Constipation, unspecified; R53.0 Neoplastic (malignant) related fatigue; H54.7 Unspecified visual loss; Y92.531 Health care provider office as the place of occurrence of the external cause; Z79.4 Long term (current) use of insulin; Z79.899 Other long term (current) drug therapy; Z79.891 Long term (current) use of opiate analgesic
CPT/HCPCS: 99350

== ENCOUNTER 2019-02-08 13:45 | Outpatient (CLI) | payer OTHER ==
--- NOTE | 2019-02-08 19:50 | CONSULTATION NOTE ---
Palliative Care Follow Up - Referral Referring Provider: Dr. Liam Reyes Time of Visit: [id number] Referral setting: Home Referral Reason: Pain of neoplastic origin/Met Colon Cancer to Liver - Information Sources History/Review of Systems obtained from: Patient, Family ( Ramón) Exam limitations: Clinical condition (patient very anxious and withdrawn) - History of Present Illness Update Brief HPI Update: This is a complex 33-year-old woman with adenocarcinoma of the colon, originally presenting with a bowel obstruction status post diverting colostomy done at [facility]. Her primary tumor is located left colon, she has not extensive liver mets and italo mets. She initiated FOLFOX on 07/25 2018. Had received 10 cycles. The hope is been for surgical intervention, but her CT scan on 11/22/2018 though it showed regression of her liver mets, there was increase in her portal and retroperitoneal area lymph nodes. There is also a right adnexa 6 cm complex cyst that was new. She at this point in time decided to move her therapy closer to home, unfortunately there was a break. Patient has been very anxious and difficulty dealing emotionally with her therapy. She does have severe nausea and vomiting though she reports otherwise to providers, and during her treatment often describes her infusions with severe pain "like a belly on fire". Patient did see Dr. Mancilla on 12/28, she did receive her 10th cycle of FOLFOX. She was hoping to plan her family vacation around her next cycle, which was being schedule to accommodate, but instead did not answer or follow through on her next appointment. She called me relating to needing her pain medications, did discuss with her at that time my concern she has not received treatment and the seriousness of this for impacting her prognosis. She did at that point in time especially does want to continue with treatment, did try and accommodate to get her in next week, she did cancel my appointment, but I did follow-up with her and and making a home visit secondary to her escalating pain and emotional distress. Patient appears quite pale, she does appear to have some weight loss. She is only allowing limited exam. She does have increased distention and fullness in her belly, her stoma is protruding more so I suspect secondary to the pressure. She does have some formed stool, with a small amount of dark brown mucus, concern for bleeding. Patient's pain is escalating in her right lower quadrant, radiating across her lower abdomen around to the back. She is currently still on a fentanyl 37.5 mcg patch, she reports she is taking oxycodone 5 mg every 2 hours and continued poor relief. Patient denies acute nausea vomiting, reports vomiting with what he attributes to the pain medications on empty stomach. She is extremely anxious, tearful and crying, and is very conflicted about wanting to continue treatment. That she is very scared about dying, and does not want to "give up" for her kids. I had been in discussion [place] [facility] [place] and [place] an [place], patient is having company from out of town, after much conversation particularly the seriousness of continuing to extend the time between treatments, she still chose not to return to the clinic until the . Patient does have a long history of difficulty with coping, she has poorly controlled Diabetes type 1, she continues to not check her blood sugars, but is taking her insulin. She is does spend much of her time in bed at this point in time, she reports is difficult to ambulate, and has significant fatigue. It is unclear if this is her functional status or her severe depression and anxiety, but is unable to participate in household tasks and is quite frail. Social History - Living Situation Living arrangement: At home Living Situation: With spouse/s.o., With family Support System: Patient's is just overwhelmed, both by her physical and emotional distraught. She does have 3 children at home, they have not moved forward on any kind of arrangements for them, the 2 older boys, Ramón would like to adopt the patient is quite unreasonable and unwilling to make practical arrangements. He has to work full-time, is only home a few hours a day, she is not allowed many people in the home to provide assistance, he reports her more people will be willing to but she sets them out. Her mother is coming over and doing meals in the evenings, he is very worried about the future, and being able to arrange care for the kids. Medications/Allergies - Medications Home Medications: Ambulatory Orders Medication Instructions Recorded Confirmed Insulin Glargine,Hum.rec.anlog 40 unit SQ BID 02/13/16 02/09/19 [Lantus] Docusate Sodium 200 mg PO BID 06/27/18 02/09/19 Insulin Aspart [NovoLOG] 1 units SUBQ BID PRN MDD sliding 06/27/18 02/09/19 scale clonazePAM [Clonazepam] 0.5 mg PO TID 06/27/18 02/09/19 oxyCODONE [Roxicodone] 10 mg PO Q3HR PRN 06/27/18 02/09/19 fentaNYL [Fentanyl 12mcg patch] 50 mcg TOP .3 DAY 07/30/18 02/09/19 Ondansetron [Zuplenz] 8 mg PO Q8HR PRN 11/02/18 02/09/19 Dextroamphetamine/Amphetamine 15 mg PO .NOON PRN 01/03/19 01/03/19 [Adderall 15 mg Tablet] Dextroamphetamine/Amphetamine 30 mg PO QDBREAKFAST PRN 01/03/19 01/03/19 [Adderall 30 mg Tablet] Polyethylene Glycol 3350 [Miralax] 17 mg PO DAILY PRN 01/03/19 02/09/19 Prochlorperazine Maleate 10 mg PO Q6HR PRN 01/03/19 02/09/19 [Compazine] - Allergies Allergies/Adverse Reactions: Allergies Allergy/AdvReac Type Severity Reaction Status Date / Time No Known Drug Allergies Allergy Verified 12/26/18 10:43 Review of Systems - Constitutional Constitutional: reports: Fatigue, Fever (earlier this week/attributed to "boil" that burst under left arm; has since resolved; has these per history inte rmittently), Weakness, Night sweats, Weight loss - Cardiovascular Cardiovascular: reports: Decr. exercise tolerance - Respiratory Respiratory: reports: SOB with exertion, Other (she continues to smoke). denies: SOB at rest - Gastrointestinal Gastrointestinal: reports: Abdominal pain, Abdominal distention, Constipation, Nausea, Vomiting (patient denies/ reports vomits regularly attributes timing around the opioids), Bloating, Poor appetite, Early satiety, Other (has colostomy). denies: Reflux/heartburn - Musculoskeletal Musculoskeletal: reports: Stiffness, Muscle weakness - Integumentary Integumentary: reports: Dryness, Lumps (left arm pit-resolving) - Neurological Neurological: reports: General weakness, Headache, Dizziness, Memory problems - Psychiatric Psychiatric: reports: Depression, Anxiety, Aggitation - Endocrine Endocrine: reports: Other (diabetes type I; does not check BS-reports is taking insulin) - Hematologic/Lymphatic Hematologic/Lymphatic: reports: Anemia - All Other Systems All Other Systems: reports: Reviewed and negative Physical Exam - Vital Signs Temperature: 97.8 C Pulse Rate: 111 Respiratory Rate: 18 O2 Saturation: 97 Blood Pressure: 172/84 - Physical Exam General Appearance: positive: Moderate distress, Anxious, Lethargic Eyes Bilateral: positive: Normal inspection ENT: negative: Oral lesions Neck: positive: Trachea midline Cardiovascular: positive: Tachycardia Respiratory: positive: No respiratory distress, Diminished in bases Abdomen: positive: Tenderness, Guarding, Distended, Taut Skin: positive: Pallor, Dryness, Other (small swollen gland/not red or pink but tender to palpation). negative: Jaundice Neurologic/Psychiatric: positive: Disoriented to time, Weakness, Depressed mood/affect, Flat affect Palliative Care - POLST Patient has POLST: No POLST Status: Full Code Pain: Pain worsening, Location (Patient reports the pain is increasing in severity in her right lower quadrant, radiating to her back and across her abdomen. She would like her pain medications titrated up, she is taking oxycodone 5 mg every 2 hours, she has had trouble with nausea and vomiting in the past. She does have the fentanyl on at 37.5 mcg.), Severity (9/10) Tiredness/Fatigue: Severe (7-10) Drowsiness/Sedation: Moderate (4-6) Nausea: Moderate (4-6), With vomiting Depression: Severe (7-10) Anxiety: Severe (7-10) Dyspnea: Mild (1-3) Anorexia: Moderate (4-6), Weight loss Constipation: Yes, Opoid induced, Intermittent constipation Feelings of wellbeing/Perceived Quality of Life: Poor, Worsening Performance Status: Patient reports her legs are wobbly, has difficulty getting up and down the stairs. She does spend majority of time in her bed, some of this is for pain management as she is more comfortable laying out stretched. - Palliative Care Discussion: Patient very anxious and tearful, also lashing out at her . She did send him out of the room. She did share her struggles with continuing on, does not feel often that this is worth it, she is very fearful of the chemotherapy and dislikes it is feeling torn between continuing to show her kids that she wants to continue on, and otherwise just wanting to be finished with it. She does understand the seriousness of her illness in the context that she is going to in the future from it, but is unable to grasp the impact of not being adherent to her treatment. She feels very isolated and alone, has multiple worries and fears. She did ask me about DWD, and continues to emotionally struggle with her current situation. Did have time to talk with Ramón, he is overwhelmed and frustrated. She is not willing to engage in any reasonable conversations about future planning, nor be willing to follow through on appointments. He does understand the implications of this, was hoping I could "make her" go. Patient presents many barriers, and fears as well as now she is functionally and cognitively declining. We did discuss what would be of support for him, he would like to meet with the medical palliative care social media project manager, his community is back in [place] he is out here for the [employer]. He is also frustrated that help that might be available, she will not allow people in the house. Results - Lab Results Lab results reviewed: No Lab and Imaging Results: Patient given lab slip, will try and go Monday, refused to go today. Impression and Recommendations - Palliative Care Impression: This is a very complex 33-year-old woman with stage IV colon cancer with metastatic disease to liver and italo mets, she has a diverting colostomy secondary to obstruction. Patient presents today with uncontrolled pain, most likely related to progressive tumor and possible ascites. Patient continues to have difficulty coping emotionally with her diagnosis and chemotherapy, now presents with functional decline. Home visit made to deal with acute crisis, patient having difficulty weighing rationally her decisions. Palliative care to continue to provide support around pain and symptom management and anticipatory guidance Recommendations/Counseling Done: 1. Pain of neoplastic origin. Patient does present with progressive pain, suspect related to progressive tumor burden. Increase fentanyl to 50 mcg patch, increased oxycodone to 10 mg tab for breakthrough pain, Rx provided. Patient does have intermittent nausea and vomiting, though currently does not present acutely with obstructive symptoms. Reviewed with patient and signs and symptoms to access emergency support. 2. Anxiety. Patient continues using her clonazepam 0.5 mg 3 times a day, continues to express being overwhelmed by her current situation and diagnosis. She continues to avoid follow through on her appointments, and has difficulty grasping the implications of her decisions and the severity of her illness. 3. Metastatic colon cancer with liver mets. Patient's last treatment was on 12/28/2018. Counseling provided regarding the need to restart treatment as soon as possible if goals are still to extend her quantity of life, and now worried about her quality of life as her symptom burden continues to escalate. Patient remains quite fearful and resistant, but voicing that she does want to continue. Counseling provided regarding hospice as an option, at this point in time patient declining. If patient's functional status and disease progress she most likely will not be a candidate for future treatment. Appointment set for her request on 02/19. 4. Fatigue. Suspect this is multi-for factorial. She did have recurrent infection in her left axilla, at this point in time is asymptomatic. She also presents with pallor, decreased activity tolerance, concern for possible blood loss to her stool. Patient agreed to get labs early next week, lab slip provided as well as order sent. 5. Hypertension. Patient has had hypertension throughout her course of her illness, she has been on propranolol in the past, but did not like the way it feels and will not take. She remains with poorly controlled hypertension and blood sugars. 6. Advanced care planning. Did address questions and counseling provided regarding the continuum of care including her questions regarding end-of-life and hospice. They have done no advanced care planning documents, patient is unwilling to have any conversations regarding planning for the future she lashes out emotionally and unwilling to engage with her . He is quite frustrated and overwhelmed, trying to manage 3 children, household, and her declining health. He has agreed to see the medical palliative care social media project manager, will facilitate this referral. Time Spent: 60 minutes with greater than 50% of this done in counseling pain and symptom management, review of disease and anticipatory guidance, and coordination of care with oncology team
== END 2019-02-08 13:46 | disposition home or self-care (01) ==
LOC: PC 13:45
PROVIDERS: ATTEND Nurse Practitioner Adult Health
DX: Z51.5 Encounter for palliative care (principal); G89.3 Neoplasm related pain (acute) (chronic); F41.9 Anxiety disorder, unspecified; C18.9 Malignant neoplasm of colon, unspecified; C78.7 Secondary malignant neoplasm of liver and intrahepatic bile duct; C77.2 Secondary and unspecified malignant neoplasm of intra-abdominal lymph nodes; R53.83 Other fatigue; E10.9 Type 1 diabetes mellitus without complications; R11.2 Nausea with vomiting, unspecified; T45.1X5D Adverse effect of antineoplastic and immunosuppressive drugs, subsequent encounter; I10 Essential (primary) hypertension; Z91.19 Patient's noncompliance with other medical treatment and regimen; K59.03 Drug induced constipation; T40.2X5A Adverse effect of other opioids, initial encounter; Z93.3 Colostomy status; Z90.49 Acquired absence of other specified parts of digestive tract; Z79.4 Long term (current) use of insulin; Z79.891 Long term (current) use of opiate analgesic
CPT/HCPCS: 99350

== ENCOUNTER 2019-02-15 13:17 | Outpatient (CLI) | payer OTHER ==
[2019-02-15 18:38] LABS: BASOPHILS # (AUTO) 0.1 10^3/uL (0.0-0.1); BASOPHILS % (AUTO) 0.5 %; EOSINOPHILS # (AUTO) 0.4 10^3/uL (0.0-0.7); EOSINOPHILS % (AUTO) 3.6 %; HGB - HEMOGLOBIN 8.9 g/dL (12.0-16.0); LYMPHOCYTES # (AUTO) 1.9 10^3/uL (1.5-3.5); LYMPHOCYTES % (AUTO) 17.8 %; MEAN CORPUSCULAR HEMOGLOBIN 25.8 pg (27.0-31.0); MEAN CORPUSCULAR HGB CONC 29.4 g/dL (32.0-36.0); MEAN CORPUSCULAR VOLUME 87.8 fL (81.0-99.0); MEAN PLATELET VOLUME 9.6 fL (7.9-10.8); MONOCYTES # (AUTO) 0.9 10^3/uL (0.0-1.0); MONOCYTES % (AUTO) 8.2 %; NEUTROPHILS # (AUTO) 7.2 10^3/uL (1.5-6.6); NEUTROPHILS % (AUTO) 68.2 %; PLT - PLATELET COUNT 612 10^3/uL (130-450); RED BLOOD COUNT 3.45 10^6/uL (4.20-5.40); RED CELL DISTRIBUTION WIDTH 17.6 % (12.0-15.0); WHITE BLOOD COUNT 10.5 x10^3/uL (4.8-10.8)
[2019-02-15 18:59] LABS: ALBUMIN 1.6 g/dL (3.2-5.5); ALBUMIN/GLOBULIN RATIO 0.3 (1.0-2.2); BILIRUBIN,TOTAL 0.7 mg/dL (0.2-1.0); CALCIUM 8.4 mg/dL (8.5-10.3); CREATININE 0.6 mg/dL (0.4-1.0); TOTAL PROTEIN 6.8 g/dL (6.7-8.2)
== END 2019-02-15 23:59 | disposition home or self-care (01) ==
LOC: LAB.N 13:17
PROVIDERS: ATTEND Nurse Practitioner Adult Health
DX: C18.9 Malignant neoplasm of colon, unspecified (principal)
CPT/HCPCS: 36415; 80053; 82378; 85025

== ENCOUNTER 2019-03-15 11:52 | Outpatient (CLI) | payer OTHER ==
[2019-03-15] MEDS ORDERED: IOVERSOL 320 50 ML VIAL ONE (12:24)
[2019-03-15] MEDS ORDERED: IOVERSOL 320 100 ML VIAL IVP ONE ×2 (12:24→14:36)
[2019-03-15] MEDS ORDERED: BUFFERED LIDOCAINE 10 ML SYRINGE ONE (13:49)
[2019-03-15] MEDS ORDERED: IOVERSOL 320 50 ML VIAL PO ONE (14:36)
[2019-03-15] MEDS ORDERED: BUFFERED LIDOCAINE 10 ML SYRINGE IU ONE (16:40)
--- NOTE | 2019-03-18 01:17 | CT Report ---
Reason: METS COLON CANCER Procedure Date: 03/15/2019 Accession Number: [id number] / [id number] Procedure: CT - Abdomen/Pelvis W CPT Code: FULL RESULT: EXAM: CT ABDOMEN AND PELVIS EXAM DATE: 03/15/2019 01:31 PM. CLINICAL HISTORY: Metastatic colon cancer. COMPARISONS: ABDOMEN/PELVIS W/ 03/15/2019 1:24 PM CHEST W/ 03/15/2019 1:24 PM. TECHNIQUE: Routine helical CT imaging was performed through the abdomen and pelvis. IV contrast: Optiray 320, 150 cc. Enteric contrast: Yes. Reconstructions: Coronal and sagittal. In accordance with CT protocol optimization, one or more of the following dose reduction techniques were utilized for this exam: automated exposure control, adjustment of mA and/or KV based on patient size, or use of iterative reconstructive technique. FINDINGS: Lung Bases: Mild right basilar atelectasis. Left lower lobe pulmonary nodule measuring 5 x 5 mm, series 2 image 9. Liver: Hepatomegaly with possible fatty infiltration. Numerous liver lesions consistent with metastatic disease. These measure up to approximately 4.6 cm. There is a confluent area in the posterior segment of the right lobe measuring 7.8 x 5.1 cm. Gallbladder/Bile Ducts: Status post cholecystectomy. No central biliary dilatation is seen. There is a curvilinear lucent area in the lateral segment of the left lobe, for example series 2 image 26, which could be a focally dilated bile duct versus a thrombosed vessel. Spleen: Enlarged at 16.9 cm. Pancreas: Mild fullness of the pancreatic head of uncertain significance. Adrenal Glands: Right adrenal is unremarkable. Probable left adrenal metastasis measuring 2.9 x 1.7 cm. Kidneys: Normal. No masses or hydronephrosis. Peritoneal Cavity/Bowel: Large amount of ascites. Possible peritoneal metastatic disease. No free air. Left-sided transverse colostomy is noted. Possible mass in the distal descending colon, for example series 2 image 74. No bowel obstruction seen. No diverticulitis. Multiple normal-sized retroperitoneal lymph nodes. Probable small normal appendix. Pelvic Organs: Large heterogeneous bilateral masses are seen possibly originating in the pelvis but extending into the abdomen, especially on the left. These measure approximately 10.2 x 6.4 cm on the right and 15.4 x 12.4 cm on the left, series 4 image 22. Vasculature: No aneurysm or other significant aortic abnormality is seen. The main portal vein is patent. Right and left portal veins are somewhat attenuated and thrombus or tumor thrombus is not excluded. Bones: No aggressive lytic or blastic osseous lesions are identified. Other: Body wall edema. IMPRESSION: 1. Hepatosplenomegaly with extensive metastatic disease in the liver. 2. Large amount of ascites. Possible peritoneal metastatic disease. 3. Main portal vein is patent. Right and left portal veins appear somewhat attenuated and there could be thrombus or tumor thrombus. 4. Probable left adrenal metastasis measuring 2.9 x 1.7 cm. 5. Mild fullness at the head of the pancreas of uncertain significance. 6. Large heterogeneous bilateral masses which appear to originate in the pelvis but extend into the abdomen, especially on the left. These could be large ovarian metastases. 7. Indeterminate left lower lobe lung nodule measuring 5 x 5 mm. 8. Transverse colostomy. Mass is suspected in the distal descending colon. RADIA
--- NOTE | 2019-03-18 09:19 | Ultrasound Report ---
Reason: METS COLON CANCER Procedure Date: 03/15/2019 Accession Number: [id number] / [id number] Procedure: US - Abdominal Paracentesis CPT Code: FULL RESULT: EXAM: ULTRASOUND-GUIDED PARACENTESIS EXAM DATE: 03/15/2019 03:18 PM. CLINICAL HISTORY: Metastatic colon cancer. COMPARISON: None. TECHNIQUE: Risks, benefits, and alternatives to the procedure were discussed with the patient. All questions answered. Written and verbal consent obtained. Patient was placed in the supine position and the skin overlying the ascites marked with sonographic guidance. The skin was sterilely prepped and draped, and 1% buffered lidocaine was used for local anesthesia. An 18-gauge catheter needle combination was advanced into the peritoneal ascites and fluid aspirated. Upon completion, the catheter was removed. FINDINGS: A total of 2300 mL of fluid was removed without immediate complication. Patient tolerated procedure well. IMPRESSION: Ultrasound-guided paracentesis without immediate complications. RADIA
--- NOTE | 2019-03-18 11:13 | CT Report ---
Reason: METS COLON CANCER Procedure Date: 03/15/2019 Accession Number: [id number] / [id number] Procedure: CT - CHEST W CPT Code: FULL RESULT: EXAM: CT CHEST EXAM DATE: 03/15/2019 01:31 PM. CLINICAL HISTORY: Mets colon cancer. COMPARISONS: ABDOMEN/PELVIS W/ 03/15/2019 1:23 PM. CHEST W/ 03/15/2019 1:24 PM. ABDOMEN/PELVIS W/ 03/15/2019 1:24 PM. TECHNIQUE: Routine helical CT imaging was performed through the chest. IV contrast: 90 mL Optiray 320. Reconstructions: Coronal and sagittal. In accordance with CT protocol optimization, one or more of the following dose reduction techniques were utilized for this exam: automated exposure control, adjustment of mA and/or KV based on patient size, or use of iterative reconstructive technique. FINDINGS: Lungs/Pleura: Subsegmental atelectasis is seen in the right lower lobe. There is a 3 mm nodule in the left lower lobe on image 22 series 2, a 2 mm left lower lobe nodule on image 23, a 5 mm left lower lobe nodule image 30. There is no pleural effusion or pneumothorax. Mediastinum: There are bilateral prominent axillary lymph nodes which do not individually measure more than 1 cm in short axis, image 28 series 7 for the left axilla in image 29 series 7 for the right axilla. A right internal mammary lymph node in the first/second intercostal space is prominent, image 14 series 2. Mediastinal lymph nodes do not individually meet size criteria but are also greater in prominence than expected, example preaortic node on image 18 series 2. As seen on image 6 series 2 and image 24 series 7, there is chaya left supraclavicular lymphadenopathy of up to 1.8 cm. Bones: Unremarkable. Visualized Abdomen: Hepatosplenomegaly with ascites and diffuse metastatic burden to the liver. Other: None. IMPRESSION: Metastatic disease within the abdomen. Prominent bilateral axillary and internal mammary lymph nodes in the setting of chaya left supraclavicular lymphadenopathy. RADIA
== END 2019-03-15 11:53 | disposition home or self-care (01) ==
LOC: DI 11:52
PROVIDERS: ATTEND Internal Medicine Hematology & Oncology
DX: C18.6 Malignant neoplasm of descending colon (principal); C78.7 Secondary malignant neoplasm of liver and intrahepatic bile duct; R16.2 Hepatomegaly with splenomegaly, not elsewhere classified; R18.8 Other ascites; R91.1 Solitary pulmonary nodule; R59.0 Localized enlarged lymph nodes; R19.04 Left lower quadrant abdominal swelling, mass and lump
CPT/HCPCS: 49083; 71260; 74177; Q9967

== ENCOUNTER 2019-03-21 12:30 | Outpatient (CLI) | payer OTHER ==
--- NOTE | 2019-03-21 18:26 | CONSULTATION NOTE ---
Palliative Care Follow Up - Referral Referring Provider: Dr. 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 She is currently on FOLFOX, after a hiatus of a couple months. She has had ultrasound-guided paracentesis on 03/15/2019 with 2300 mils of fluid remove. Her relief from this was brief, but did allow her to eat for several days, she currently has early satiety and difficulty feeling like eating. She denies any nausea or vomiting, she reports post chemotherapy her most significant symptom is severe fatigue. She does spend most of the time in bed, and sleeping. Patient reports her pain is been escalating, particularly with the reaccumulation of the fluid. She had very minimal relief. Her pain remains in the right lower quadrant, continue to radiate around her back and across to her abdomen.Now with ascites she is having increased pressure through her abdomen as well, and is unable to find a comfortable position which is affecting her sleep. She is having difficulty with sleeping secondary to the pain, she has currently on fentanyl 50 mcg, but has been needing oxycodone 10 mg 1 tab every 2-3 hours, including through the night. She is feeling very discouraged, feels if her pain is better controlled she would do better. She continues with high anxiety, is very vague and evasive regarding how things are going at home. She is not able to identify any support, did get a ride from a friend. She is finding that with her multiple appointments, feels like she is not getting any break from "her cancer", but acknowledged and needing to accommodate her 's work schedule and care needs of her children that there is little choice and how it currently is managed. She does report she has had some episodes of hypoglycemia, she is continued on her Lantus 40 units twice daily, she does appear much more cachectic, though her weight is around 79.1 kg, she is presenting with temporal wasting upper extremity and lower extremity wasting as well. Her baseline weight is affected by her ascites. Her blood sugar on 5 was 74 this was midday. Social History - Living Situation Living arrangement: At home Living Situation: With spouse/s.o., With family Support System: Patient identifies very little support, had been having her mother help she is quite vague in why this is no longer happening. She does have a friend who helps with some transportation. She reports things are tense between her and her , her talking to the social problems specialist and patient has not been very communicative or support of of his support. There is quite a bit of family tension. Patient has severe anxiety and difficulty talking about the implications in the future. She does have 3 young children at home, she is looking forward to when school starts again. At this point in time they have explored childcare, but cannot afford to pay for support. She feels currently they are coping well enough. Medications/Allergies - Medications Home Medications: Ambulatory Orders Medication Instructions Recorded Confirmed Insulin Glargine,Hum.rec.anlog 30 unit SQ QDBREAKFAST 02/13/16 03/21/19 [Lantus] Docusate Sodium 200 mg PO BID 06/27/18 03/21/19 Insulin Aspart [NovoLOG] 1 units SUBQ BID PRN MDD sliding 06/27/18 03/19/19 scale clonazePAM [Clonazepam] 0.5 mg PO TID 06/27/18 03/21/19 oxyCODONE [Roxicodone] 10 mg PO Q3HR PRN 06/27/18 03/21/19 fentaNYL [Fentanyl 12mcg patch] 75 mcg TOP .3 DAY 07/30/18 03/21/19 Ondansetron [Zuplenz] 8 mg PO Q8HR PRN 11/02/18 03/21/19 Dextroamphetamine/Amphetamine 15 mg PO .NOON PRN 01/03/19 03/21/19 [Adderall 15 mg Tablet] Dextroamphetamine/Amphetamine 30 mg PO QDBREAKFAST PRN 01/03/19 03/21/19 [Adderall 30 mg Tablet] Polyethylene Glycol 3350 [Miralax] 17 mg PO DAILY PRN 01/03/19 03/21/19 Prochlorperazine Maleate 10 mg PO Q6HR PRN 01/03/19 03/21/19 [Compazine] Potassium Chloride 20 meq PO BID 03/19/19 03/21/19 Insulin Glargine [Lantus Solostar] 20 units SQ DAILY PM 03/21/19 03/21/19 - Allergies Allergies/Adverse Reactions: Allergies Allergy/AdvReac Type Severity Reaction Status Date / Time No Known Drug Allergies Allergy Verified 03/19/19 09:49 Review of Systems - Constitutional Constitutional: reports: Fatigue, Weakness, Poor appetite, Weight loss (wasting not reflective in weight because of ascites). denies: Fever, Chills - Eyes Eyes: reports: Blurred vision - Ears, Nose & Throat Ears, Nose & Throat: denies: Mouth lesions - Cardiovascular Cardiovascular: reports: Exertional dyspnea, Decr. exercise tolerance - Respiratory Respiratory: reports: SOB with exertion. denies: SOB at rest - Gastrointestinal Gastrointestinal: reports: Abdominal pain, Abdominal distention, Bloating, Poor appetite, Early satiety. denies: Nausea, Vomiting - Genitourinary Genitourinary: denies: Dysuria, Frequency, Urgency - Musculoskeletal Musculoskeletal: reports: Stiffness, Muscle weakness - Integumentary Integumentary: reports: Dryness - Neurological Neurological: reports: General weakness, Memory problems. denies: Numbness - Psychiatric Psychiatric: reports: Depression, Anxiety (Does admit to not following through, is not taking calls, has multiple attacks she is not "dealt with". She is feeling overwhelmed. She does feel like the clonazepam helps take the edge off, and is using it fairly consistently 2-3 times a day.) - Endocrine Endocrine: reports: Other (diabetes type I; reports periods of hypoglycemia, does not check BS or record) - All Other Systems All Other Systems: reports: Other (limited ROS) Physical Exam - Vital Signs Temperature: 36.9 C Pulse Rate: 95 Respiratory Rate: 16 Blood Pressure: 123/81 - Physical Exam General Appearance: positive: Mild distress, Anxious, Cachetic Eyes Bilateral: positive: Normal inspection, No scleral icterus ENT: negative: Oral lesions Neck: positive: No JVD, Trachea midline Cardiovascular: positive: Tachycardia Respiratory: positive: No respiratory distress Abdomen: positive: Distended, Taut, Other (has colostomy) Skin: positive: Pallor, Dryness Extremities: positive: No pedal edema Neurologic/Psychiatric: positive: Oriented x3, Weakness, Flat affect Palliative Care - POLST Patient has POLST: No POLST Status: Full Code Pain: Pain worsening, Location (see HPI), Severity (mod-mod/severe) Drowsiness/Sedation: None Nausea: None Depression: Moderate (4-6) Anxiety: Severe (7-10) Dyspnea: Mild (1-3) Anorexia: Moderate (4-6), Weight loss Sleep: Sleeps poorly Constipation: No, Opoid induced, Managed Feelings of wellbeing/Perceived Quality of Life: Poor, Worsening Performance Status: Patient has very limited exercise tolerance, does spend most the time in bed or on the couch. She is able to attend her ADLs. But limited household tasks. - Palliative Care Discussion: Patient is willing to engage in conversation with practitioner. She remains very vague regarding how things are going at home, is feeling her quality of life is significantly impacted by her pain today. Has done no advanced care planning, do know from previous conversations with team and myself, there are significant concerns regarding future planning for the children. We will continue to build rapport to be able to continue conversation and addressing future needs. Patient gets significantly anxious with any information, does need to be asked permission as far as how much to share. She is feeling very positive with her interactions with Dr. Luong, it is important to continue to build trust with the team. Results - Lab Results Lab results reviewed: Yes Lab and Imaging Results: Patient did not remember getting potassium prescription, nor aware of her 3.1. We did discuss taking the 20 mEq twice a day, will redo prescription, instructions given on how best to tolerate. Impression and Recommendations - Palliative Care Impression: This is a very complex 33-year-old woman with stage IV colon cancer with metastatic disease to the liver and italo mets, she has a diverting colostomy secondary to obstruction and tumor burden. Patient presents with escalating pain, recurrent ascites, and continues have difficulty coping both emotionally and physically with her diagnosis and therapy. Palliative care to continue to provide support and assistance in navigating her journey. Recommendations/Counseling Done: 1. Pain of neoplastic origin. Patient using between 80 and 90 mg of oxycodone in 24 hours, will go ahead and increase her fentanyl from 50mcg to 75 mcg. Counseling provided regarding safety, goal for outcome to have less than 3-4 doses of breakthrough pain in 24 hours. Reviewed again pain teaching regarding long-acting versus short acting medications, also follow-up with Dr. Luong order for paracentesis as soon as possible. Reviewed goal for treatment to decrease need for recurrent paracentesis, hoping for good response from chemotherapy. 2. General anxiety disorder. Patient continues on the clonazepam, she has used SSRIs in the past without good response and side effects unacceptable. Patient quite resistant to consider further counseling, will continue to work on building rapport with palliative care practitioner. Patient has been encouraged to reach out if has further concerns, continue to explore ways to help us support patient. 3. Hypoglycemia. Patient has had long-term issues with adherence to diabetic regimen, and describing patient's symptoms and most recent weight loss as well as poor intake, will go ahead and decrease Lantus to 30 units in the a.m. and 20 units in the p.m. Patient has been instructed and encouraged to check blood sugars, patient often responds to just by symptoms. Reviewed again counseling for concerns regarding hypoglycemic episodes, as these can be very dangerous. 4. Advanced care planning. Significant amount of family tension regarding future planning, have enlisted help of medical palliative care social problems specialist in hopes to continue to work on long-term plan for advanced care planning documents and plan for children in the future. Time Spent: 30 minutes with greater than 50% of this done in counseling regarding pain and symptom management, psychosocial support, and coordination of care with oncology team.
== END 2019-03-21 12:31 | disposition home or self-care (01) ==
LOC: PC 12:30
PROVIDERS: ATTEND Nurse Practitioner Adult Health
DX: Z51.5 Encounter for palliative care (principal); G89.3 Neoplasm related pain (acute) (chronic); C18.6 Malignant neoplasm of descending colon; C78.7 Secondary malignant neoplasm of liver and intrahepatic bile duct; C77.2 Secondary and unspecified malignant neoplasm of intra-abdominal lymph nodes; R18.8 Other ascites; E10.649 Type 1 diabetes mellitus with hypoglycemia without coma; F41.9 Anxiety disorder, unspecified; F32.9 Major depressive disorder, single episode, unspecified; R06.00 Dyspnea, unspecified; R53.1 Weakness; R63.0 Anorexia; Z79.4 Long term (current) use of insulin; Z93.3 Colostomy status; Z91.19 Patient's noncompliance with other medical treatment and regimen; Z79.899 Other long term (current) drug therapy; Z79.891 Long term (current) use of opiate analgesic
CPT/HCPCS: 99214

== ENCOUNTER 2019-04-04 13:19 | Outpatient (CLI) | payer OTHER | END 2019-04-04 13:20 | disposition home or self-care (01) | LOC: PC 13:19 | PROVIDERS: ATTEND Nurse Practitioner Adult Health | DX: Z53.9 Procedure and treatment not carried out, unspecified reason (principal) ==

== ENCOUNTER 2019-04-16 11:14 | Outpatient (CLI) | payer OTHER ==
[2019-04-16] MEDS ORDERED: BUFFERED LIDOCAINE 10 ML SYRINGE ONE (11:29)
[2019-04-16] MEDS ORDERED: BUFFERED LIDOCAINE 10 ML SYRINGE IU ONE (16:13)
--- NOTE | 2019-04-17 08:35 | Ultrasound Report ---
Reason: COLON CANCER Procedure Date: 04/16/2019 Accession Number: [id number] / [id number] Procedure: US - Abdominal Paracentesis CPT Code: FULL RESULT: EXAM: ULTRASOUND-GUIDED PARACENTESIS EXAM DATE: 04/16/2019 03:02 PM. CLINICAL HISTORY: COLON CANCER. Abdominal distention. COMPARISON: ABDOMINAL PARACENTESIS 04/16/2019 11:38 AM ABDOMINAL PARACENTESIS 03/15/2019 1:51 PM ABDOMEN/PELVIS W/ 03/15/2019 1:24 PM. TECHNIQUE: Risks, benefits, and alternatives to the procedure were discussed with the patient. All questions answered. Written and verbal consent obtained. Patient was placed in the supine position and the skin overlying the right lower quadrant ascites marked with sonographic guidance. The skin was sterilely prepped and draped, and 1% buffered lidocaine was used for local anesthesia. An 18-gauge [employer] catheter was advanced into the peritoneal ascites and fluid aspirated. Upon completion, the catheter was removed. FINDINGS: A total of 8 liters of fluid was removed without immediate complication. Patient tolerated procedure well. IMPRESSION: Ultrasound-guided paracentesis without immediate complications. RADIA
== END 2019-04-16 11:15 | disposition home or self-care (01) ==
LOC: DI 11:14
PROVIDERS: ATTEND Internal Medicine Hematology & Oncology
DX: C18.9 Malignant neoplasm of colon, unspecified (principal); R14.0 Abdominal distension (gaseous)
CPT/HCPCS: 49083

== ENCOUNTER 2019-04-18 13:08 | Emergency (ER) | payer OTHER ==
[2019-04-18 14:40] LABS: BASOPHILS # (AUTO) 0.1 10^3/uL (0.0-0.1); BASOPHILS % (AUTO) 0.7 %; EOSINOPHILS % (AUTO) 0.3 %; HGB - HEMOGLOBIN 9.1 g/dL (12.0-16.0); LYMPHOCYTES # (AUTO) 1.1 10^3/uL (1.5-3.5); LYMPHOCYTES % (AUTO) 12.4 %; MEAN CORPUSCULAR HEMOGLOBIN 26.1 pg (27.0-31.0); MEAN CORPUSCULAR HGB CONC 30.3 g/dL (32.0-36.0); MEAN CORPUSCULAR VOLUME 86.2 fL (81.0-99.0); MEAN PLATELET VOLUME 9.4 fL (7.9-10.8); MONOCYTES # (AUTO) 1.4 10^3/uL (0.0-1.0); MONOCYTES % (AUTO) 16.3 %; NEUTROPHILS # (AUTO) 6.2 10^3/uL (1.5-6.6); PLT - PLATELET COUNT 231 10^3/uL (130-450); RED BLOOD COUNT 3.48 10^6/uL (4.20-5.40); RED CELL DISTRIBUTION WIDTH 19.2 % (12.0-15.0); WHITE BLOOD COUNT 8.9 x10^3/uL (4.8-10.8)
[2019-04-18 14:56] LABS: ALBUMIN 1.6 g/dL (3.2-5.5); ALBUMIN/GLOBULIN RATIO 0.4 (1.0-2.2); BILIRUBIN,TOTAL 1.1 mg/dL (0.2-1.0); CALCIUM 7.6 mg/dL (8.5-10.3); CREATININE 0.5 mg/dL (0.4-1.0); TOTAL PROTEIN 5.8 g/dL (6.7-8.2)
--- NOTE | 2019-04-18 16:22 | ED Physician Documentation ---
History of Present Illness - Stated complaint Stated Complaint: LOW TEMP/FLUID LEAKING - Chief complaint Chief Complaint: Fever - History obtained from History obtained from: Patient - Additonal information Additional information: The patient is a 33-year-old female with a history of diabetes, colon cancer, and liver cancer with ascites, who underwent paracentesis 2 days ago. She presents from [facility] because of persistent leaking from the paracentesis site. She reportedly had low-grade fever to 100.4 degrees. She denies abdominal pain, nausea or vomiting. Review of Systems Constitutional: reports: Fever (Low-grade) Cardiac: denies: Chest pain / pressure Respiratory: denies: Cough GI: reports: Other (Ascites.). denies: Abdominal Pain, Nausea, Vomiting : denies: Dysuria Neurologic: reports: Generalized weakness. 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 Derm: Debridement - Present Medications Home Medications: Ambulatory Orders Medication Instructions Recorded Confirmed Insulin Glargine,Hum.rec.anlog 30 unit SQ QDBREAKFAST 02/13/16 04/16/19 [Lantus] Docusate Sodium 200 mg PO BID 06/27/18 04/16/19 Insulin Aspart [NovoLOG] 1 units SUBQ BID PRN MDD sliding 06/27/18 04/16/19 scale clonazePAM [Clonazepam] 0.5 mg PO TID 06/27/18 04/16/19 oxyCODONE [Roxicodone] 10 mg PO Q3HR PRN 06/27/18 04/16/19 fentaNYL [Fentanyl 12mcg patch] 75 mcg TOP .3 DAY 07/30/18 04/16/19 Ondansetron [Zuplenz] 8 mg PO Q8HR PRN 11/02/18 04/16/19 Dextroamphetamine/Amphetamine 15 mg PO .NOON PRN 01/03/19 04/16/19 [Adderall 15 mg Tablet] Dextroamphetamine/Amphetamine 30 mg PO QDBREAKFAST PRN 01/03/19 04/16/19 [Adderall 30 mg Tablet] Polyethylene Glycol 3350 [Miralax] 17 mg PO DAILY PRN 01/03/19 04/16/19 Prochlorperazine Maleate 10 mg PO Q6HR PRN 01/03/19 04/16/19 [Compazine] Potassium Chloride 20 meq PO BID 03/19/19 04/16/19 Insulin Glargine [Lantus Solostar] 20 units SQ DAILY PM 03/21/19 04/16/19 - Allergies Allergies/Adverse Reactions: Allergies Allergy/AdvReac Type Severity Reaction Status Date / Time No Known Drug Allergies Allergy Verified 04/18/19 13:18 - Social History Does the pt smoke?: Yes Smoking Status: Current every day smoker Does the pt drink ETOH?: No Does the pt have substance abuse?: No - Immunizations Immunizations are current?: Yes - POLST Patient has POLST: No PD ED PE NORMAL - Vitals Vital signs reviewed: Yes (Tachycardic) - General General: Alert and oriented X 3, Other (Alert, appears fatigued.) - HEENT HEENT: Atraumatic, Other (Anicteric sclera.) - Cardiac Cardiac: Other (Rapid rate, regular rhythm.) - Respiratory Respiratory: Clear bilaterally - Abdomen Abdomen: Soft, Non tender, Other (Protuberant abdomen, with ascites. There is persistent leaking of clear ascites fluid from the recent paracentesis site. There is no surrounding erythema or tenderness to palpation.) - Derm Derm: No rash - Neuro Neuro: Alert and oriented X 3, Normal speech Results - Vitals Vitals: Oxygen O2 Source Room air - Labs Labs: Laboratory Tests 04/18/19 04/18/19 14:30 14:30 WBC 8.9 RBC 3.48 L Hgb 9.1 L Hct 30.0 L MCV 86.2 MCH 26.1 L MCHC 30.3 L RDW 19.2 H Plt Count 231 MPV 9.4 Neut # (Auto) 6.2 Lymph # (Auto) 1.1 L [place] # (Auto) 1.4 H Eos # (Auto) 0.0 Baso # (Auto) 0.1 Absolute Nucleated RBC 0.00 Nucleated RBC % 0.0 Sodium 137 Potassium 3.0 L Chloride 96 L Carbon Dioxide 32 Anion Gap 9.0 BUN 10 Creatinine 0.5 Estimated GFR (MDRD) 140 Glucose 117 H Calcium 7.6 L Total Bilirubin 1.1 H AST 64 H ALT 16 Alkaline Phosphatase 452 H Total Protein 5.8 L Albumin 1.6 L Globulin 4.2 Albumin/Globulin Ratio 0.4 L Lipase 19 L Procedures - General procedure General procedure: With the patient lying on her left side, with the paracentesis site on the right, Dermabond was applied to the paracentesis site. During a 30-minute period of observation, there was no recurrent leaking from the paracentesis site. PD MEDICAL DECISION MAKING - ED course Complexity details: re-evaluated patient, considered differential, d/w patient, d/w family ED course: The patient's presentation is significant for persistent leaking of ascites fluid from paracentesis site following paracentesis 2 days ago. Her examination does not suggest peritonitis. Treatment in the emergency department included application of Dermabond to the paracentesis site. This resolved the leakage. I discussed her condition with the nurse at the [facility], who will see her in follow-up for administration of chemotherapy. I discussed with the patient and her family potentially worrisome signs or symptoms that should prompt reevaluation in the emergency department. Departure - Departure Disposition: 01 Home, Self Care Clinical Impression: History of abdominal paracentesis Peritoneal fluid Qualifiers: Ascites type: malignant Qualified Code(s): R18.0 - Malignant ascites Condition: Stable Instructions: ED Ascites Follow-Up: Liam Reyes MD [Primary Care Provider] - Smita Luong MD [Provider Admit Priv/Credential] - Comments: Follow-up for chemotherapy at [facility] tomorrow as scheduled. Return to the emergency department if you develop increasing abdominal pain, increasing fever, persistent vomiting, or otherwise worsening symptoms. Discharge Date/Time: 04/18/19 16:34
[2019-04-18 16:35] VITALS: BP 115/71
== END 2019-04-18 16:34 | disposition home or self-care (01) ==
LOC: ED 13:08
DX: R18.0 Malignant ascites (principal); Z98.890 Other specified postprocedural states; Z85.038 Personal history of other malignant neoplasm of large intestine; Z85.05 Personal history of malignant neoplasm of liver; E10.9 Type 1 diabetes mellitus without complications; I10 Essential (primary) hypertension; F17.200 Nicotine dependence, unspecified, uncomplicated
CPT/HCPCS: 36415; 80053; 83690; 85025; 99283

== ENCOUNTER 2019-04-25 15:10 | Outpatient (CLI) | payer OTHER ==
--- NOTE | 2019-04-25 17:57 | CONSULTATION NOTE ---
Palliative Care Follow Up - Referral Referring Provider: Dr. Liam Reyes Time of Visit: [id number] Referral setting: Home Referral Reason: Pain of neoplastic origin/Met Colon Ca with Liver mets - Information Sources Records reviewed: Previous records reviewed History/Review of Systems obtained from: Patient, Family ( Ramón at visit) Exam limitations: Clinical condition (patient not always forthright in her information; is very fearful and with limited understanding of her cancer/treatment related to her anxiety) - History of Present Illness Update Brief HPI Update: This is a complex 33-year-old woman with adenocarcinoma of the colon, extensive liver mets, italo mets, peritoneal carcinomatosis. She originally presented with a bowel obstruction status post diverting colostomy. She is receiving FOLFOX, she has developed severe and recurring ascites. She had let the time lapse between the last one in this when her original one was 8/0 2, her last one was 3 with a total of 8 L was removed. She did have complications afterwards with leaking, and developed an elevated temp. She was seen in the ED with a stitch placed. Patient's abdomen continues to enlarge, can palpate the carcinomatosis underneath the skin, she is starting to reaccumulate fluid. She has high anxiety disorder, and somewhat from her body, has extensive swelling in the periarea. Her colostomy with her stoma, is protruding out of the skin. She is not have any signs or symptoms of bleeding at this point in time. Patient is mostly in bed, is quite weak, and has been reports she sleeps most of the time. She does report severe diarrhea with her last chemotherapy, and as it turns out she has NOT been taking her Potassium. I found the original bottle Dr. Luong had ordered, as well as the bottle at right aid was picked up today by her . Potassium on 04/18 was 3.0. Most likely it has decreased with her description of her stooling, instructed both her and her again of the importance of starting, patient dislikes pills, and is easily overwhelmed. will encourage her, but patient can be quite stubborn. She does report she is eating okay, she is not checking her blood sugar but is taking the lower dose of Lantus, is trying to push fluids. She does have temporal and upper extremity wasting, she ambulates only short distances in her bedroom. She does get breathless with activity. She had developed a temp prior to her chemotherapy, she was deemed though could proceed and did receive it on 04/19. Patient reports she continues with low-grade temps of 99.1 up to 100, please have not been persistent but fluctuate. She is denies any chills, denies any severe acute pain, no guarding or tenderness with palpation. Patient high risk for peritonitis, she has had some pruritus, and has some larger skin lesions of 1 cm less where she has been scratching on the right side of her abdomen. Social History - Living Situation Living arrangement: At home Living Situation: With spouse/s.o., With family Support System: Patient lives at home with her , Ramón has been trying to work with his schedule so he is more around to support the kids with the initiation of school year. Unfortunately his daughter is home sick with a cold. We did discuss keeping them separate, as Samantha is high risk for infection. Patient continues to be quite withdrawn, lashing out at her and though everyone knows she is quite fearful, is unable to share her fears or discuss much. She did enter into some conversation today. There have been offers of help, but Samantha remains resistant to including others in her support [place]. Medications/Allergies - Medications Home Medications: Ambulatory Orders Medication Instructions Recorded Confirmed Insulin Glargine,Hum.rec.anlog 30 unit SQ QDBREAKFAST 02/13/16 04/25/19 [Lantus] Docusate Sodium 200 mg PO BID 06/27/18 04/25/19 Insulin Aspart [NovoLOG] 1 units SUBQ BID PRN MDD sliding 06/27/18 04/25/19 scale clonazePAM [Clonazepam] 0.5 mg PO TID 06/27/18 04/25/19 Ondansetron [Zuplenz] 8 mg PO Q8HR PRN 11/02/18 04/25/19 Polyethylene Glycol 3350 [Miralax] 17 mg PO DAILY PRN 01/03/19 04/25/19 Prochlorperazine Maleate 10 mg PO Q6HR PRN 01/03/19 04/25/19 [Compazine] Potassium Chloride 20 meq PO BID 03/19/19 04/25/19 Insulin Glargine [Lantus Solostar] 20 units SQ DAILY PM 03/21/19 04/25/19 Loperamide [Imodium] 2 mg PO PRN PRN MDD 8/tabs 04/25/19 04/25/19 Oxycodone HCl 10 mg PO Q3HR PRN MDD 8/24 hours 04/25/19 04/25/19 fentaNYL [Fentanyl 75mcg patch] 75 mcg TOP .Q3 04/25/19 04/25/19 - Allergies Allergies/Adverse Reactions: Allergies Allergy/AdvReac Type Severity Reaction Status Date / Time No Known Drug Allergies Allergy Verified 04/18/19 13:18 Review of Systems - Constitutional Constitutional: reports: Fatigue, Fever (low grade), Weakness. denies: Chills - Ears, Nose & Throat Ears, Nose & Throat: reports: Dry mouth - Cardiovascular Cardiovascular: reports: Exertional dyspnea, Decr. exercise tolerance - Respiratory Respiratory: reports: Cough, Wheezing, SOB with exertion, Other (patient continues to smoke) - Gastrointestinal Gastrointestinal: reports: Abdominal pain, Abdominal distention, Diarrhea (recently with chemotherapy), Nausea, Poor appetite, Early satiety - Musculoskeletal Musculoskeletal: reports: Muscle weakness - Integumentary Integumentary: reports: Rash, Pruritis, Lesions, Dryness - Neurological Neurological: reports: General weakness, Dizziness, Memory problems - Psychiatric Psychiatric: reports: Depression, Anxiety - Endocrine Endocrine: reports: Other (diabetes Type I) - Hematologic/Lymphatic Hematologic/Lymphatic: reports: Anemia - All Other Systems All Other Systems: reports: Reviewed and negative Physical Exam - Vital Signs Temperature: 99.1 C Pulse Rate: 112 Respiratory Rate: 18 O2 Saturation: 95 (ra @ rest) Blood Pressure: 112/72 - Physical Exam General Appearance: positive: Mild distress, Anxious Eyes Bilateral: positive: Normal inspection ENT: positive: Other (few lesions on out lips) Neck: positive: Trachea midline Cardiovascular: positive: Tachycardia (baseline) Respiratory: positive: No respiratory distress, Wheezes Abdomen: positive: Nml bowel sounds, Tenderness, Distended, Other (colostomy) Skin: positive: Pallor, Dryness, Pruritis, Other (scatter dried lesions on right side of abdomen; no cellulitis) Extremities: positive: No pedal edema Neurologic/Psychiatric: positive: Disoriented to time, Weakness, Depressed mood/affect, Flat affect Palliative Care - POLST Patient has POLST: No POLST Status: Full Code Pain: Pain unchanged, Location (Pain in abdomen deep visceral achy and right lower pelvis. Does worsen with ascites, improved after draining. Patient reports "gets behind" and her pain pills she does have escalating pain. She is using about 6-7 10 mg oxycodone, she is on fentanyl 75 mcg patch, will continue on current dosing for now.) Tiredness/Fatigue: Severe (7-10) Drowsiness/Sedation: Mild (1-3) Nausea: Mild (1-3) Depression: Severe (7-10) Anxiety: Severe (7-10) Dyspnea: Moderate (4-6) Anorexia: Moderate (4-6) Sleep: Variable sleep pattern Constipation: Yes, Opoid induced, Intermittent constipation Feelings of wellbeing/Perceived Quality of Life: Poor, Worsening Performance Status: Patient with poor activity tolerance, spends most of her time in bed can walk short distances. She is more comfortable laying flat as well as spends the remainder of her time laying out on her couch. She does feel weak and short of breath with any kind of activity. This is been progressive not acute in nature. - Palliative Care Discussion: Patient patient continues to be very anxious and fearful, she is very tired of her current quality of life, reports at times she just wants to give up. She does not talk to anybody about what is going on, she reports she has always kept everything inside, and does not feel differently about this. She is very distressed regarding her children, they feel overwhelming to her when she is around, but also is worried about their well-being particularly as she continues to worsen in the future. She does not feel like she is getting any better, she is quite from her body and all the changes is going through. She always asked somewhat tentative questions, but only allows small amounts of information about her disease or wets going on with her treatment in. She is not able to recall our share what her understanding is, she is "leaving it to the doctors". She was somewhat distressed as she had said "this never happened Carolin Saunders" when talking about this ascites, we discussed this is more part of her disease process that is not her treatment or treatment regimen and she is receiving the same treatment. Spoke with her , patient continues to be quite walled off and not sharing he does know and understand she is fearful. He tries to help her, we reviewed the medications again particularly her encouragement to take the potassium. He reports she is not taking the Adderall, does not share often what her symptoms are. He reports she sleeps most of the time, and does not often engage in her outward impairment and feels like she could do more time since she chooses to. Psychosocial support given, and the patient's coping mechanisms are very reflective of ways in the past she is coped or lack of coping. Positive reinforcement given for his support of the kids, and for Samantha. Encouraged to continue to reach out, and use the medical palliative care social insurance adviser as well. Results - Lab Results Lab results reviewed: Yes Impression and Recommendations - Palliative Care Impression: This is a very complex 33-year-old woman with stage IV colon cancer with metastatic disease, and underlying severe anxiety disorder and depression, and recurrent and problematic ascites. Patient continues to decline functionally, feeling overwhelmed by her current state of health and poor quality of life, and family is stressed with the changes in patient and family dynamics. Palliative care to continue provide support as patient allows, to have some rapport with patient, goal is to remain available and supportive. Focusing on pain and symptom management and negotiating healthcare system. Recommendations/Counseling Done: 1. Pain of neoplastic origin. Rx provided for oxycodone 10 mg tabs, she probably had 20-30 tabs left of her 240 which would be appropriate for maximum provided of 8 a day. She is on the fentanyl 75 mcg patch, does feel currently though she does continue to have pain, satisfied with current regimen. The may need to be visit and increase to 100 mcg. 2. Ascites. Patient at high risk for peritonitis, did have leak earlier, no longer further leakage. Abdomen does not present with any acute signs or symptoms of infection, most likely low-grade temp is related to her liver mets. Patient is not scheduled for paracentesis until 05/10. Reviewed signs and symptoms to contact GI for earlier schedule. She does have them schedule every 2 weeks after that. Patient may need to revisit if it is candidate for Pleurx. Counseling provided regarding signs and symptoms of acute peritonitis and reasons to access the ED. 3. Anxiety. Patient continues to use her clonazepam 0.5 mg up to 3 times a day, and continues to be very overwhelmed by her current state of affairs, particularly as her body continues to change. She is quite fearful, alternating with wanting to do her best with wanting to give up. Allowing patient to set the turn for answering questions at pace she can tolerate. 4. Hypokalemia. Patient is not been compliant with her potassium, reviewed again the rationale and suspect is even further decreased as she had severe diarrhea with her last chemo. Counseling provided regarding restarting 20 mEq twice daily, and continue until at least next lab set. She is very adverse to pills. Counseling also provided regarding the use of loperamide to decrease colostomy output during times of chemotherapy side effects. 5. Fatigue. Suspect this is multifactorial, she is having functional decline, increase activity intolerance, and is anemic. Patient does report she is eating better, now with the paracentesis. That she actually is feeling quite hungry. Unfortunately patient is not a candidate for dexamethasone for appetite stimulant secondary to her diabetes and high infection risk. Counseling provided regarding encouraged to increase activity. 6. Metastatic colon cancer with liver mets. Patient has resumed and been adherent to her current schedule. Remains ambivalent regarding whether to continue, but also quite fearful about not. Encouraged her to ask more questions with her oncologist if she is curious, or I would be happy to follow- up and relay any information that would be helpful for her in decision-making. 7. Caregiver fatigue. Counseling provided and follow-up on phone with , he was calling to clarify and confirm medication list and direction. Allowed him to verbalize his concerns and frustrations, as well as given positive feedback for the responsibility he has taken and support he gives her.Will have medical palliative care social insurance adviser reach out again. Time Spent: 50 minutes with greater than 50% of this done in counseling regarding current needs for symptom management, and anticipatory guidance.
== END 2019-04-25 15:11 | disposition home or self-care (01) ==
LOC: PC 15:10
PROVIDERS: ATTEND Nurse Practitioner Adult Health
DX: Z51.5 Encounter for palliative care (principal); G89.3 Neoplasm related pain (acute) (chronic); C18.9 Malignant neoplasm of colon, unspecified; C78.7 Secondary malignant neoplasm of liver and intrahepatic bile duct; C77.9 Secondary and unspecified malignant neoplasm of lymph node, unspecified; R18.8 Other ascites; E10.8 Type 1 diabetes mellitus with unspecified complications; F41.9 Anxiety disorder, unspecified; F32.9 Major depressive disorder, single episode, unspecified; E87.6 Hypokalemia; R53.83 Other fatigue; Z93.3 Colostomy status; Z79.4 Long term (current) use of insulin; Z79.891 Long term (current) use of opiate analgesic; Z79.899 Other long term (current) drug therapy
CPT/HCPCS: 99349

== ENCOUNTER 2019-05-10 08:51 | Outpatient (CLI) | payer OTHER ==
[2019-05-10] MEDS ORDERED: BUFFERED LIDOCAINE 10 ML SYRINGE ONE (10:15)
[2019-05-10] MEDS ORDERED: BUFFERED LIDOCAINE 10 ML SYRINGE IU ONE (15:32)
--- NOTE | 2019-05-10 16:52 | Ultrasound Report ---
Reason: COLON CANCER Procedure Date: 05/10/2019 Accession Number: [id number] / [id number] Procedure: US - Abdominal Paracentesis CPT Code: FULL RESULT: EXAM: ULTRASOUND-GUIDED PARACENTESIS EXAM DATE: 05/10/2019 11:51 AM. CLINICAL HISTORY: COLON CANCER. COMPARISON: ABDOMINAL PARACENTESIS 04/16/2019 3:02 PM. TECHNIQUE: Risks, benefits, and alternatives to the procedure were discussed with the patient. All questions answered. Written and verbal consent obtained. Patient was placed in the supine position and the skin overlying the ascites marked with sonographic guidance. The skin was sterilely prepped and draped, and 1% buffered lidocaine was used for local anesthesia. A 6 Jamaican-safety centesis was advanced into the peritoneal ascites and fluid aspirated. Upon completion, the catheter was removed. FINDINGS: A total of 8500 mL of fluid was removed without immediate complication. Patient tolerated procedure well. IMPRESSION: Ultrasound-guided paracentesis without immediate complications. RADIA
== END 2019-05-10 08:52 | disposition home or self-care (01) ==
LOC: DI 08:51
PROVIDERS: ATTEND Internal Medicine Hematology & Oncology
DX: C18.9 Malignant neoplasm of colon, unspecified (principal)
CPT/HCPCS: 49083

== ENCOUNTER 2019-05-24 11:38 | Emergency (ER) | payer OTHER ==
--- NOTE | 2019-05-24 12:52 | ED Physician Documentation ---
PD HPI ABD PAIN - Stated complaint Stated Complaint: ABD PX - Chief complaint Chief Complaint: Abd Pain - History obtained from History obtained from: Patient - History of Present Illness Timing - onset: Chronic (ascites) Timing - duration: Months Timing - details: Gradual onset, Other (worsening) Severity Comments: severe Quality: Fullness/distended Location: All over / everywhere Radiation: Other (none) Improved by: Other (nothing) Worsened by: Palpation Associated symptoms: Nausea, Loss of appetite. No: Fever, Vomiting, Hematemesis, Diarrhea, Melena, Hematochezia, Dysuria, Chest pain, Near syncope / syncope Similar symptoms before: Diagnosis (hx of colon and liver cancer with malignant ascites) Recently seen: Clinic (a few weeks ago) - Treatment prior to arrival Treatment prior to arrival: none recently - Additional information Additional information: Pt is undergoing active palliative chemotherapy PD PAST MEDICAL HISTORY - Past Medical History Past Medical History: Yes Cardiovascular: Hypertension Respiratory: None Endocrine/Autoimmune: Type 1 diabetes GI: Other (Colon cancer; liver cancer) Psych: Anxiety, Panic attacks, ADD/ADHD Musculoskeletal: Other Derm: Other - Past Surgical History Past Surgical History: No General: Cholecystectomy, Gastric surgery, Liver surgery, 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 Derm: Debridement - Present Medications Home Medications: Ambulatory Orders Medication Instructions Recorded Confirmed Insulin Glargine,Hum.rec.anlog 30 unit SQ QDBREAKFAST 02/13/16 05/14/19 [Lantus] Docusate Sodium 200 mg PO BID 06/27/18 05/14/19 Insulin Aspart [NovoLOG] 1 units SUBQ BID PRN MDD sliding 06/27/18 05/14/19 scale clonazePAM [Clonazepam] 0.5 mg PO TID 06/27/18 05/14/19 Ondansetron [Zuplenz] 8 mg PO Q8HR PRN 11/02/18 05/14/19 Polyethylene Glycol 3350 [Miralax] 17 mg PO DAILY PRN 01/03/19 05/14/19 Prochlorperazine Maleate 10 mg PO Q6HR PRN 01/03/19 05/14/19 [Compazine] Potassium Chloride 20 meq PO BID 03/19/19 05/14/19 Insulin Glargine [Lantus Solostar] 20 units SQ DAILY PM 03/21/19 05/14/19 Loperamide [Imodium] 2 mg PO PRN PRN MDD 8/tabs 04/25/19 05/14/19 Oxycodone HCl 10 mg PO Q3HR PRN MDD 8/24 hours 04/25/19 05/14/19 fentaNYL [Fentanyl 75mcg patch] 75 mcg TOP .Q3 04/25/19 05/14/19 - Allergies Allergies/Adverse Reactions: Allergies Allergy/AdvReac Type Severity Reaction Status Date / Time No Known Drug Allergies Allergy Verified 05/14/19 09:40 - Social History Does the pt smoke?: Yes Smoking Status: Current every day smoker Does the pt drink ETOH?: No Does the pt have substance abuse?: No - Immunizations Immunizations are current?: Yes - POLST Patient has POLST: No PD ED PE NORMAL - General General: Alert and oriented X 3, Other (generally ill appearing) - HEENT HEENT: Atraumatic - Neck Neck: Supple, no meningeal sign, No JVD - Cardiac Cardiac: No murmur, No gallop, No rub, Strong equal pulses, Other (tachycardic ) - Respiratory Respiratory: No respiratory distress, Clear bilaterally - Female Female : Deferred - Rectal Rectal: Deferred - Derm Derm: Normal color, Warm and dry, No rash, Other (pale ) - Extremities Extremities: No edema - Neuro Neuro: Alert and oriented X 3 Eye Opening: Spontaneous Motor: Obeys Commands Verbal: Oriented GCS Score: 15 - Psych Psych: Normal mood, Normal affect PD ED PE EXPANDED - Abdomen Abdomen: Distended, Tender to palpation (diffusely ), Generalized/diffuse. No: Rebound, Guarding Results - Vitals Vitals: Oxygen O2 Source Room air - Labs Labs: Microbiology 05/24/19 15:55 Blood Culture - Preliminary Blood - Right Hand NO GROWTH AFTER 2 DAYS 05/24/19 15:47 Blood Culture - Preliminary Blood - Left Arm NO GROWTH AFTER 2 DAYS 05/24/19 15:00 Body Fluid Culture - Preliminary Ascities Fluid Laboratory Tests 05/24/19 05/24/19 05/24/19 13:53 13:53 13:53 WBC 8.0 RBC 3.91 L Hgb 10.4 L Hct 34.0 L MCV 87.0 MCH 26.6 L MCHC 30.6 L RDW 21.2 H Plt Count 201 MPV 9.9 Neut # (Auto) 5.2 Lymph # (Auto) 1.5 Luna # (Auto) 1.0 Eos # (Auto) 0.2 Baso # (Auto) 0.1 Absolute Nucleated RBC 0.00 Nucleated RBC % 0.0 PT 13.6 H INR 1.2 APTT 40.5 H Sodium 140 Potassium 3.1 L Chloride 103 Carbon Dioxide 26 Anion Gap 11.0 BUN 9 Creatinine 0.6 Estimated GFR (MDRD) 114 Glucose 37 L* POC Whole Bld Glucose Calcium 8.4 L Total Bilirubin 1.0 AST 37 ALT 14 Alkaline Phosphatase 764 H Total Protein 6.7 Albumin 1.7 L Globulin 5.0 H Albumin/Globulin Ratio 0.3 L Lipase 16 L Fluid Source Fluid Color Fluid Clarity Fluid WBC Fluid RBC Fluid Neutrophils % Fluid Lymphocytes % Fluid Monocytes % Fld Mesothelial Cell % 05/24/19 05/24/19 05/24/19 14:02 15:00 17:45 WBC RBC Hgb Hct MCV MCH MCHC RDW Plt Count MPV Neut # (Auto) Lymph # (Auto) Luna # (Auto) Eos # (Auto) Baso # (Auto) Absolute Nucleated RBC Nucleated RBC % PT INR APTT Sodium Potassium Chloride Carbon Dioxide Anion Gap BUN Creatinine Estimated GFR (MDRD) Glucose POC Whole Bld Glucose 31 L* 87 Calcium Total Bilirubin AST ALT Alkaline Phosphatase Total Protein Albumin Globulin Albumin/Globulin Ratio Lipase Fluid Source PERITONEAL Fluid Color YELLOW Fluid Clarity HAZY Fluid WBC 113 Fluid RBC < 3000 Fluid Neutrophils % 30 Fluid Lymphocytes % 44 Fluid Monocytes % 2 Fld Mesothelial Cell % 24 05/24/19 19:16 WBC RBC Hgb Hct MCV MCH MCHC RDW Plt Count MPV Neut # (Auto) Lymph # (Auto) Luna # (Auto) Eos # (Auto) Baso # (Auto) Absolute Nucleated RBC Nucleated RBC % PT INR APTT Sodium Potassium Chloride Carbon Dioxide Anion Gap BUN Creatinine Estimated GFR (MDRD) Glucose POC Whole Bld Glucose 87 Calcium Total Bilirubin AST ALT Alkaline Phosphatase Total Protein Albumin Globulin Albumin/Globulin Ratio Lipase Fluid Source Fluid Color Fluid Clarity Fluid WBC Fluid RBC Fluid Neutrophils % Fluid Lymphocytes % Fluid Monocytes % Fld Mesothelial Cell % Procedures - Paracentesis Preparation: Consent obtained, Ultrasound guidance, Sterile prep and drape, Local anesthesia Location: RLQ Technique: Z-tract Fluid: Clear, Bloody, Sent for cell count, Sent for gram stain, Sent for culture Aftercare: Patient tolerated well, Bleeding - comment (mild bleeding), Fluid leak - comment (repaired with figure of 8 stitch), Other (paracentesis catheter clotted with blood) PD MEDICAL DECISION MAKING - ED course Complexity details: reviewed old records, reviewed results, re-evaluated patient, considered differential, d/w patient, d/w family ED course: ddx- SBP, ascites with abdominal pain, electrolyte abnormality, hypoglycemia, renal failure, sepsis 33 y/o F with hx of colon and liver cancer with malignant ascites presented today for worsening abdominal pain and distension, missed her paracentesis appointment and is requesting a paracentesis. Pt on arrival however was noted to be hypoglycemic. She is a diabetic and last took her Lantus the night before and has had poor po intake. She was given oral glucose but had multiple recurrent episodes of hypolgycemia thus was started on a D10 drip. Given her abdominal pain and distension with her ascites and hypoglycemia with possible sepsis, I performed a diagnostic paracentesis and empirically treated her with ceftriaxone. Her ascitic fluid results are not consistent with SBP. I attempted to follow this iwth a therapeutic paracentesis but the patient's cahteter clotted likely due to her severe caput medusa and I was only able to remove about 500cc. I discussed admission to our hospitalist but given pt may need a therapeutic paracentesis during her stay the hospitalist felt she was not appropriate for our facility as we have no one to perform the procedure this weekend. Pt was thus transferred to [facility] for further care, accepted by Dr. Palacios. Departure - Departure Disposition: 02 Transfer Acute Care Hosp Clinical Impression: Hypoglycemia, Malignant ascites, Hypokalemia Discharge Date/Time: 05/24/19 19:49
[2019-05-24 14:10] LABS: BASOPHILS # (AUTO) 0.1 10^3/uL (0.0-0.1); BASOPHILS % (AUTO) 0.8 %; EOSINOPHILS # (AUTO) 0.2 10^3/uL (0.0-0.7); EOSINOPHILS % (AUTO) 2.4 %; HGB - HEMOGLOBIN 10.4 g/dL (12.0-16.0); LYMPHOCYTES # (AUTO) 1.5 10^3/uL (1.5-3.5); LYMPHOCYTES % (AUTO) 18.3 %; MEAN CORPUSCULAR HEMOGLOBIN 26.6 pg (27.0-31.0); MEAN CORPUSCULAR HGB CONC 30.6 g/dL (32.0-36.0); MEAN PLATELET VOLUME 9.9 fL (7.9-10.8); MONOCYTES % (AUTO) 12.4 %; NEUTROPHILS # (AUTO) 5.2 10^3/uL (1.5-6.6); NEUTROPHILS % (AUTO) 65.1 %; PLT - PLATELET COUNT 201 10^3/uL (130-450); RED BLOOD COUNT 3.91 10^6/uL (4.20-5.40); RED CELL DISTRIBUTION WIDTH 21.2 % (12.0-15.0)
[2019-05-24 14:16] LABS: INR 1.2 (0.8-1.2); PT - PROTHROMBIN TIME 13.6 secs (9.9-12.6)
[2019-05-24 14:24] LABS: PARTIAL THROMBOPLASTIN TIME 40.5 secs (24.9-33.3)
[2019-05-24 14:25] LABS: ALBUMIN 1.7 g/dL (3.2-5.5); ALBUMIN/GLOBULIN RATIO 0.3 (1.0-2.2); CALCIUM 8.4 mg/dL (8.5-10.3); CREATININE 0.6 mg/dL (0.4-1.0); TOTAL PROTEIN 6.7 g/dL (6.7-8.2)
[2019-05-24] MEDS ORDERED: POTASSIUM CHLORIDE 20 MEQ TABLET PO STA (14:29)
[2019-05-24] MEDS ORDERED: ALBUMIN 25% 12.5 GM/50 ML VIAL IV STA (14:29)
[2019-05-24 15:30] LABS: BF SOURCE PERITONEAL
[2019-05-24 15:31] LABS: BF COLOR YELLOW
[2019-05-24] MEDS ORDERED: DEXTROSE 10% 250 ML IV STA (15:33)
[2019-05-24] MEDS ORDERED: cefTRIAXone 2 GM in SODIUM CHLORIDE 0.9% MINIBAG 100 ML IV STA (15:34)
[2019-05-24] MEDS ORDERED: fentaNYL 100 MCG/2 ML VIAL IVP STA (15:40)
[2019-05-24 16:20] LABS: LYMPHOCYTES %,BODY FLUID 44; MONOCYTES %,BODY FLUID 2 %
[2019-05-24 16:21] LABS: MESOTHELIAL %, BF 24 %
[2019-05-24 16:22] LABS: CC,BF RBC < 3000 /mm^3
[2019-05-24] MEDS ORDERED: HYDROmorphone 2 MG/ML VIAL IVP STA (18:00)
[2019-05-24 19:09] VITALS: BP 108/94
[2019-05-24] MEDS ORDERED: HYDROmorphone 1 MG/ML CARPUJECT IVP STA (19:29)
[2019-05-24] MEDS ORDERED: ONDANSETRON 4 MG/2 ML VIAL IVP STA (19:29)
== END 2019-05-24 19:49 | disposition short-term general hospital (02) ==
LOC: ED 11:38
DX: R18.0 Malignant ascites (principal); C18.9 Malignant neoplasm of colon, unspecified; C78.7 Secondary malignant neoplasm of liver and intrahepatic bile duct; E10.649 Type 1 diabetes mellitus with hypoglycemia without coma; E87.6 Hypokalemia; I10 Essential (primary) hypertension; F17.200 Nicotine dependence, unspecified, uncomplicated
CPT/HCPCS: 36415; 49083; 80053; 83690; 85025; 85610; 85730; 87040; 87070; 87205; 89051; 96365; 96367; 96375; 96376; 99281; 99285; A9270; J1170; J3490; P9047

== ENCOUNTER 2019-05-30 13:29 | Outpatient (CLI) | payer OTHER ==
--- NOTE | 2019-05-30 14:11 | CONSULTATION NOTE ---
Palliative Care Follow Up - Referral Referring Provider: Dr. Liam Reyes Time of Visit: [id number] [place] [facility] [place] Reason: Pain of neoplastic origin/Met Colon Cancer with Liver mets/Anxiety - Information Sources Records reviewed: Previous records reviewed, Other ([facility] hospital records) History/Review of Systems obtained from: Patient Exam limitations: Clinical condition (patient with high anxiety; very poor historian) - History of Present Illness Update Brief HPI Update: This is a complicated 33-year-old woman who has adenocarcinoma of the colon, extensive liver mets, italo mets, and peritoneal carcinomatosis. She has been receiving FOLFOX, has developed ongoing and recurring ascites. Unfortunately she also has difficulty with anxiety and feeling overwhelmed, she did miss her paracentesis appointment, and on arrival to the ED on 05/24 they were unable to tap her. They also found her severely hypoglycemic. Patient has been a type 1 diabetes since after her first child, she does not check her blood sugars on a regular basis, she goes by " how she feels" she has been counseled numerous times, and has not changed behavior. She reports she been feeling poorly, had not been eating, but had been drinking lots of juice and Gatorade, so was surprised that her persistent hypoglycemia. Her ascites gets to the point of significant pressure and distention, she no longer feels like she can eat, and her cycle has been getting tapped, getting chemo, filling up by the next week, and then in significant distress was last 3 or 4 days prior to paracentesis. Dr. Luong has made a referral for patient to receive a pleurx catheter, patient is quite pleased but scared. Discussed about having home health, giving the fact she is still homebound related to her fatigue and lower extremity weakness and ongoing pain issues, she would benefit from support and counseling and oversight of this.Did have them for her colostomy, and it did take several weeks for her to transition and be able to feel confident to take this task on I suspect this will be a similar story with her Pleurx catheter. Patient was hospitalized at [place] as they were unable to keep her at [facility], secondary to he did not have diagnostic imaging on site. She was admitted on 05/24 and discharged on 05/26. There was concern during her stay that she had a DVT on the right side, she does have some mild swelling and leg is bigger, but she lays consistently on that right side secondary to pain management and she is sedentary most of the day. It did test negative. She did have 4 L of acetic fluid removed on 05/25, they did not see any concerns for SBP. They did manage her diabetes, on lower doses, she reports she is back to her regular dosing which is 40 in the a.m., and 20-30 at bedtime depending on what she is eaten. She does not check her blood glucose. Today she is receiving her chemotherapy, she is able to wake up and engage. She was somewhat distressed by the whole scenario of what happened, particularly since they were not able to tap her. She is still having a small amount of leakage at site, changing dressing about every 4-5 hours, but is slowing down. She reports her pain is currently controlled on that she is using fentanyl 75 mcg patch, with oxycodone 10 mg 3-4 times in 24 hours. She reports this increases closer to the time of paracentesis. She remains somewhat distant and removed from her body, her abdomen is quite distended, her colostomy has soft brown stool no signs or symptoms of bleeding, she is tender to palpation particularly on that right lower side. She reports she is continue to use the Klonopin, usually uses it for the first 2 or 3 days particularly after chemo, she feels very exhausted and sleeps most of that time. She reports she is taking her potassium, but remains mostly in bed or on the couch for the second week prior to her chemo. I would put her PPS at 50%. Social History - Living Situation Living arrangement: At home Living Situation: With spouse/s.o., With family Support System: Patient's Ramón, continues to receive support from the medical palliative care social sciences research scientist via phone. Samantha continues to be quite labile in her moods, and often refuses to participate in things that would be of benefit to her health or family. She does have 3 young children at home, we did discuss Halloween, and the impending holidays. She denies any problems with support. Though I am aware of the is quite overwhelmed by managing her and the 3 young children. She refuses to do any family counseling, her willing to talk about the situation with Ramón and others present. Medications/Allergies - Medications Home Medications: Ambulatory Orders Medication Instructions Recorded Confirmed Insulin Glargine,Hum.rec.anlog 30 - 40 unit SQ QDBREAKFAST 02/13/16 05/30/19 [Lantus] Docusate Sodium 200 mg PO BID 06/27/18 05/14/19 Insulin Aspart [NovoLOG] 5 units SUBQ TID PRN MDD sliding 06/27/18 05/14/19 scale clonazePAM [Clonazepam] 0.5 mg PO TID 06/27/18 05/30/19 Ondansetron [Zuplenz] 8 mg PO Q8HR PRN 11/02/18 05/30/19 Polyethylene Glycol 3350 [Miralax] 17 mg PO DAILY PRN 01/03/19 05/30/19 Prochlorperazine Maleate 10 mg PO Q6HR PRN 01/03/19 05/30/19 [Compazine] Potassium Chloride 20 meq PO BID 03/19/19 05/30/19 Insulin Glargine [Lantus Solostar] 20 units SQ DAILY PM 03/21/19 05/14/19 Loperamide [Imodium] 2 mg PO PRN PRN MDD 8/tabs 04/25/19 05/30/19 Oxycodone HCl 10 mg PO Q3HR PRN MDD 8/24 hours 04/25/19 05/30/19 fentaNYL [Fentanyl 75mcg patch] 75 mcg TOP .Q3 04/25/19 05/30/19 - Allergies Allergies/Adverse Reactions: Allergies Allergy/AdvReac Type Severity Reaction Status Date / Time No Known Drug Allergies Allergy Verified 05/14/19 09:40 Review of Systems - Constitutional Constitutional: reports: Fatigue, Poor appetite. denies: Fever - Eyes Eyes: reports: Vision loss - Ears, Nose & Throat Ears, Nose & Throat: reports: Dry mouth - Cardiovascular Cardiovascular: reports: Lightheadedness, Exertional dyspnea, Decr. exercise tolerance - Respiratory Respiratory: reports: SOB with exertion. denies: SOB at rest - Gastrointestinal Gastrointestinal: reports: Abdominal pain (right sided), Abdominal distention, Bloating, Poor appetite, Early satiety, Other (colostomy). denies: Nausea, Reflux/heartburn - Musculoskeletal Musculoskeletal: reports: Back pain, Muscle aches, Stiffness, Limited range of motion, Muscle weakness - Integumentary Integumentary: reports: Dryness - Neurological Neurological: reports: General weakness, Memory problems - Psychiatric Psychiatric: reports: Depression, Anxiety - Endocrine Endocrine: reports: Other (diabetes type 1) - Hematologic/Lymphatic Hematologic/Lymphatic: reports: Anemia (9.5) - All Other Systems All Other Systems: reports: Reviewed and negative Physical Exam - Vital Signs Temperature: 36.7 C Pulse Rate: 130 Respiratory Rate: 18 Blood Pressure: 137/91 - Physical Exam General Appearance: positive: Mild distress, Anxious Eyes Bilateral: positive: Normal inspection ENT: positive: Dry mucous membranes Neck: positive: No JVD, Trachea midline Cardiovascular: positive: Tachycardia (baseline) Respiratory: positive: No respiratory distress Abdomen: positive: Distended, Other (colostomy; stoma protrudes pink/no s/s bleeding; stool light brown) Skin: positive: Pallor Extremities: positive: Pedal edema (right side; at Prov r/o DVT; patient lays on right side at all times; suspect fluid retention/lyphadema) Neurologic/Psychiatric: positive: Oriented x3, Weakness, Unintelligible speech, Depressed mood/affect Palliative Care - POLST Patient has POLST: No POLST Status: Full Code Pain: Pain unchanged, Location (lower right quadrant) Tiredness/Fatigue: Severe (7-10) Drowsiness/Sedation: Moderate (4-6) Nausea: None Depression: Mild (1-3) Anxiety: Moderate (4-6) Dyspnea: Moderate (4-6) Anorexia: Moderate (4-6) Sleep: Sleeps well Constipation: No - Palliative Care Discussion: Patient per usual, does not offer up any conversation regarding her fears or concerns. She is somewhat anxious about pending Pleurx catheter, discussed what might make that better, will make arrangements for home health RN. She is planning for Halloween, talked some about her kids, denies any problems with children and/or . Offers up no questions, or hopes her fears today. She was quite distressed with her hospital stay, though did enjoy having a break. Results - Lab Results Lab results reviewed: Yes Impression and Recommendations - Palliative Care Impression: This is a 33-year-old woman who continues to have complex care needs, she has been having recurring ascites, goal is to place Pleurx catheter. She continues with treatment, she is due for restaging scans, continues to be challenged with logistics of treatment and care. Currently she reports her pain is well controlled on current regimen, she gets too anxious to have further conversation about how she is adjusting or not adjusting to illness, left door open as usually do, sometimes she does use that time to share. She is continuing with ongoing treatment, and palliative care continue provide support for pain and symptom management and anticipatory guidance as allowed Recommendations/Counseling Done: 1. Pain of neoplastic origin. Patient is on fentanyl 75 mcg patch provided prescription earlier in the week, as well as her oxycodone 10 mg tablets, she is using 3 to 4-day. She is unclear whether records were not reflective of her current use of pain management in [place]. She feels her current regimen is working, her most significant distress is when she gets closer to needing a paracentesis. Hopefully with the introduction to her care plan a Pleurx catheter, this will even out. 2. Fatigue this is multifactorial in origin, including ongoing anemia, deconditioning, recurrent ascites, intermittent hypokalemia and fluctuating blood sugars as well as nutrition. Patient is quite sedentary, does spend most the time the bed as this is also conducive for improved pain management. Counseling provided again regarding need to be more active, encourage short walks, and increased time up out of bed during the day on days she is feeling better. 3. Generalized weakness. Patient does have lower extremity weakness, her gait is slow and purposeful. She is homebound is secondary to a taxing considerable pain effort for the patient leave the home. She is going out just for doctor's appointments at this point. 4. Ascites. Patient is scheduled for The end of next week, she is aware of this. Will facilitate home health adjunct political science instructor, patient to contact me when appointment known. Coordination of care with home health office, will put her on schedule for the week of the . I will contact PCP for orders. 5. Diabetes type 1. Patient continues to manage her insulin without blood sugar readings, and has not changed behaviors despite teaching through program, RN, and PCP. Counseling provided regarding not safe, and concern for her family if she were to go unconscious or have a bad outcome. 5. Advanced care planning. Patient continues to struggle with the chronicity and feeling overwhelmed with her current treatment schedule. Patient at this point in time does not want to engage in advanced care planning. Palliative care ROLLED GOLD PLATER has been providing support for , and will continue to stay in touch. [id number] for home health nursing. It is a taxing considerable effort for the patient leave the home secondary to her significant deconditioning, fatigue, and ongoing fluctuating pain and recurrent ascites. Patient did obtain and manage Pleurx catheter for ascites, will need significant amount of support and training, as well as dressing changes and oversight can use further instruction regarding pain and symptom management. Time Spent: 30 minutes with greater than 50% of this done in counseling regarding pain and symptom management, and anticipatory guidance.
== END 2019-05-30 13:30 | disposition home or self-care (01) ==
LOC: PC 13:29
PROVIDERS: ATTEND Nurse Practitioner Adult Health
DX: Z51.5 Encounter for palliative care (principal); C18.9 Malignant neoplasm of colon, unspecified; C78.7 Secondary malignant neoplasm of liver and intrahepatic bile duct; C77.2 Secondary and unspecified malignant neoplasm of intra-abdominal lymph nodes; C78.6 Secondary malignant neoplasm of retroperitoneum and peritoneum; E10.649 Type 1 diabetes mellitus with hypoglycemia without coma; Z79.4 Long term (current) use of insulin; R18.8 Other ascites; G89.3 Neoplasm related pain (acute) (chronic); R10.9 Unspecified abdominal pain; M54.9 Dorsalgia, unspecified; D64.9 Anemia, unspecified; R53.1 Weakness; R53.83 Other fatigue; F32.9 Major depressive disorder, single episode, unspecified; F41.9 Anxiety disorder, unspecified; R41.3 Other amnesia; H54.7 Unspecified visual loss; Z93.3 Colostomy status; Z79.891 Long term (current) use of opiate analgesic; Z79.899 Other long term (current) drug therapy; Z91.19 Patient's noncompliance with other medical treatment and regimen
CPT/HCPCS: 99214

== ENCOUNTER 2019-06-07 08:55 | Outpatient (CLI) | payer OTHER ==
[2019-06-07] MEDS ORDERED: BUFFERED LIDOCAINE 10 ML SYRINGE ONE (09:22)
[2019-06-07] MEDS ORDERED: BUFFERED LIDOCAINE 10 ML SYRINGE IU ONE (12:49)
--- NOTE | 2019-06-07 16:06 | Ultrasound Report ---
Reason: COLON CANCER Procedure Date: 06/07/2019 Accession Number: [id number] / [id number] Procedure: US - Abdominal Paracentesis CPT Code: FULL RESULT: EXAM: ULTRASOUND-GUIDED PARACENTESIS EXAM DATE: 06/07/2019 09:14 AM. CLINICAL HISTORY: COLON CANCER. COMPARISON: ABDOMINAL PARACENTESIS 05/10/2019 10:25 AM. TECHNIQUE: Risks, benefits, and alternatives to the procedure were discussed with the patient. All questions answered. Written and verbal consent obtained. Patient was placed in the supine position and the skin overlying the right lower quadrant ascites marked with sonographic guidance. The skin was sterilely prepped and draped, and 1% buffered lidocaine was used for local anesthesia. An 18-gauge Ywda-X-Lhvouqeu catheter was advanced into the peritoneal ascites and fluid aspirated. Upon completion, the catheter was removed. FINDINGS: A total of 9.9 L of fluid was removed without immediate complication. Patient tolerated procedure well. IMPRESSION: Ultrasound-guided paracentesis without immediate complications. RADIA
== END 2019-06-07 08:56 | disposition home or self-care (01) ==
LOC: DI 08:55
PROVIDERS: ATTEND Internal Medicine Hematology & Oncology
DX: C18.9 Malignant neoplasm of colon, unspecified (principal)
CPT/HCPCS: 49083

== ENCOUNTER 2019-06-18 16:14 | Outpatient (CLI) | payer OTHER | END 2019-06-18 16:15 | disposition critical access hospital (66) | LOC: EMS 16:14 | PROVIDERS: ATTEND Surgery | DX: R46.4 Slowness and poor responsiveness (principal) ==

== ENCOUNTER 2019-06-18 16:35 | Inpatient (IN) | payer OTHER ==
[2019-06-18] MEDS ORDERED: SODIUM CHLORIDE 0.9% 1,000 ML IV ONE ×6 (16:41→22:34)
[2019-06-18] MEDS ORDERED: LORazepam 2 MG/ML VIAL IVP STA (16:43)
--- NOTE | 2019-06-18 17:58 | ED Physician Documentation ---
History of Present Illness - Stated complaint Stated Complaint: ALOC - Chief complaint Chief Complaint: Neuro - History obtained from History obtained from: EMS - History of Present Illness Timing: Today Pain level max: 0 Pain level now: 0 - Additonal information Additional information: 33-year-old female with stage IV metastatic colon cancer, currently undergoing chemotherapy. EMS states that she has been altered for the past several days, family called today to have her evaluated. She is unable to give any history. No family is available here currently. She has a Pleurx drain in place as well as a colostomy. 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 Derm: Debridement - Present Medications Home Medications: Ambulatory Orders Medication Instructions Recorded Confirmed Insulin Glargine,Hum.rec.anlog 30 - 40 unit SQ QDBREAKFAST 02/13/16 06/10/19 [Lantus] Docusate Sodium 200 mg PO BID 06/27/18 06/10/19 Insulin Aspart [NovoLOG] 5 units SUBQ TID PRN MDD sliding 06/27/18 06/10/19 scale clonazePAM [Clonazepam] 0.5 mg PO TID 06/27/18 06/10/19 Ondansetron [Zuplenz] 8 mg PO Q8HR PRN 11/02/18 06/10/19 Polyethylene Glycol 3350 [Miralax] 17 mg PO DAILY PRN 01/03/19 06/10/19 Prochlorperazine Maleate 10 mg PO Q6HR PRN 01/03/19 06/10/19 [Compazine] Potassium Chloride 20 meq PO BID 03/19/19 06/10/19 Insulin Glargine [Lantus Solostar] 20 units SQ DAILY PM 03/21/19 06/10/19 Loperamide [Imodium] 2 mg PO PRN PRN MDD 8/tabs 04/25/19 06/10/19 Oxycodone HCl 10 mg PO Q3HR PRN MDD 8/24 hours 04/25/19 06/10/19 fentaNYL [Fentanyl 75mcg patch] 75 mcg TOP .Q3 04/25/19 06/10/19 - Allergies Allergies/Adverse Reactions: Allergies Allergy/AdvReac Type Severity Reaction Status Date / Time No Known Drug Allergies Allergy Verified 06/18/19 16:43 - Social History Does the pt smoke?: Yes Smoking Status: Current every day smoker Does the pt drink ETOH?: No Does the pt have substance abuse?: No - Immunizations Immunizations are current?: Yes - POLST Patient has POLST: No PD ED PE NORMAL - Vitals Vital signs reviewed: Yes - General General: Other (Moaning, incoherent) - HEENT HEENT: Atraumatic, PERRL, Other (Dry lips and tongue) - Neck Neck: Supple, no meningeal sign - Cardiac Cardiac: Other (Tachycardic) - Respiratory Respiratory: Other (Tachypneic) - Abdomen Abdomen: Soft, Other (Mild diffuse tenderness to palpation) - Back Back: No spinal TTP - Derm Derm: Other (Cool, dry skin) - Extremities Extremities: No deformity - Neuro Neuro: Other (alert) Eye Opening: Spontaneous Motor: Withdraws to Pain Verbal: Incomprehensible GCS Score: 10 Results - Vitals Vitals: Vital Signs - 24 hr 06/18/19 06/18/19 06/18/19 16:36 16:50 17:30 Temperature 36.8 C Heart Rate 147 H 133 H 143 H Respiratory 34 H 26 H 32 H Rate Blood Pressure 132/77 H 99/48 L 128/49 L O2 Saturation 95 89 L 96 06/18/19 06/18/19 06/18/19 18:00 18:30 19:00 Temperature Heart Rate 144 H 144 H 141 H Respiratory 30 H 33 H 37 H Rate Blood Pressure 152/75 H 109/60 123/57 L O2 Saturation 100 98 100 Oxygen O2 Source Room air - Labs Labs: Laboratory Tests 06/18/19 06/18/19 06/18/19 18:09 18:09 18:09 WBC 13.6 H RBC 2.86 L Hgb 7.9 L Hct 26.4 L MCV 92.3 MCH 27.6 MCHC 29.9 L RDW 21.5 H Plt Count 93 L MPV 11.0 H Neut # (Auto) Not Reportable Lymph # (Auto) Not Reportable [place] # (Auto) Not Reportable Eos # (Auto) Not Reportable Baso # (Auto) Not Reportable Absolute Nucleated RBC Not Reportable Total Counted 100 Band Neuts % (Manual) 22 H Abnorm Lymph % (Manual) 0 Nucleated RBC % Not Reportable Neutrophils # (Manual) 13.5 H Lymphocytes # (Manual) 0.0 L Monocytes # (Manual) 0.1 Eosinophils # (Manual) 0.0 Basophils # (Manual) 0.0 Differential Comment MANUAL DIFFERENTIAL Manual Slide Review Indicated WBC Morphology 2+ TOXIC GRANULATION Platelet Estimate DECREASED (<130,000) Platelet Morphology NORMAL APPEARANCE RBC Morph Micro Appear 1+ SCHISTOCYTES VBG pH VBG pCO2 VBG pO2 VBG HCO3 VBG Total CO2 VBG O2 Saturation VBG Base Excess Sodium 133 L Potassium 5.5 H Chloride 101 Carbon Dioxide 12 L* Anion Gap 20.0 H BUN 66 H Creatinine 1.3 H Estimated GFR (MDRD) 47 L Glucose 466 H Glycated Hemoglobin Estim Average Glucose Lactic Acid Calcium 7.1 L Magnesium Total Bilirubin 3.6 H AST 64 H ALT 24 Alkaline Phosphatase 567 H Total Creatine Kinase Total Protein 5.6 L Albumin 1.2 L Globulin 4.4 H Albumin/Globulin Ratio 0.3 L Lipase 15 L TSH 2.50 Urine Color Urine Clarity Urine pH Ur Specific [place] Urine Protein Urine Glucose (UA) Urine Ketones Urine Occult Blood Urine Nitrite Urine Bilirubin Urine Ictotest Urine Urobilinogen Ur Leukocyte Esterase Ur Microscopic Review Urine Culture Comments Salicylates < 6.0 Urine Opiates Screen Ur Oxycodone Screen Urine Methadone Screen Ur Propoxyphene Screen Acetaminophen < 10 L Ur Barbiturates Screen Ur Tricyclics Screen Ur Phencyclidine Scrn Ur Amphetamine Screen U Methamphetamines Scrn U Benzodiazepines Scrn Urine Cocaine Screen U Cannabinoids Screen Ethyl Alcohol < 5.0 Serum Ketones SMALL H 06/18/19 06/18/19 06/18/19 18:09 18:09 18:09 WBC RBC Hgb Hct MCV MCH MCHC RDW Plt Count MPV Neut # (Auto) Lymph # (Auto) [place] # (Auto) Eos # (Auto) Baso # (Auto) Absolute Nucleated RBC Total Counted Band Neuts % (Manual) Abnorm Lymph % (Manual) Nucleated RBC % Neutrophils # (Manual) Lymphocytes # (Manual) Monocytes # (Manual) Eosinophils # (Manual) Basophils # (Manual) Differential Comment Manual Slide Review WBC Morphology Platelet Estimate Platelet Morphology RBC Morph Micro Appear VBG pH VBG pCO2 VBG pO2 VBG HCO3 VBG Total CO2 VBG O2 Saturation VBG Base Excess Sodium Potassium Chloride Carbon Dioxide Anion Gap BUN Creatinine Estimated GFR (MDRD) Glucose Glycated Hemoglobin 8.1 H Estim Average Glucose 186 H Lactic Acid Calcium Magnesium 2.4 Total Bilirubin AST ALT Alkaline Phosphatase Total Creatine Kinase 105 Total Protein Albumin Globulin Albumin/Globulin Ratio Lipase TSH Urine Color Urine Clarity Urine pH Ur Specific [place] Urine Protein Urine Glucose (UA) Urine Ketones Urine Occult Blood Urine Nitrite Urine Bilirubin Urine Ictotest Urine Urobilinogen Ur Leukocyte Esterase Ur Microscopic Review Urine Culture Comments Salicylates Urine Opiates Screen Ur Oxycodone Screen Urine Methadone Screen Ur Propoxyphene Screen Acetaminophen Ur Barbiturates Screen Ur Tricyclics Screen Ur Phencyclidine Scrn Ur Amphetamine Screen U Methamphetamines Scrn U Benzodiazepines Scrn Urine Cocaine Screen U Cannabinoids Screen Ethyl Alcohol Serum Ketones 06/18/19 06/18/19 06/18/19 18:16 18:46 18:46 WBC RBC Hgb Hct MCV MCH MCHC RDW Plt Count MPV Neut # (Auto) Lymph # (Auto) [place] # (Auto) Eos # (Auto) Baso # (Auto) Absolute Nucleated RBC Total Counted Band Neuts % (Manual) Abnorm Lymph % (Manual) Nucleated RBC % Neutrophils # (Manual) Lymphocytes # (Manual) Monocytes # (Manual) Eosinophils # (Manual) Basophils # (Manual) Differential Comment Manual Slide Review WBC Morphology Platelet Estimate Platelet Morphology RBC Morph Micro Appear VBG pH 7.280 L VBG pCO2 25.5 L VBG pO2 35.5 VBG HCO3 11.7 L VBG Total CO2 12.5 L VBG O2 Saturation 56.2 L VBG Base Excess -13.5 L Sodium Potassium Chloride Carbon Dioxide Anion Gap BUN Creatinine Estimated GFR (MDRD) Glucose Glycated Hemoglobin Estim Average Glucose Lactic Acid 2.5 H Calcium Magnesium Total Bilirubin AST ALT Alkaline Phosphatase Total Creatine Kinase Total Protein Albumin Globulin Albumin/Globulin Ratio Lipase TSH Urine Color Cancelled Urine Clarity Cancelled Urine pH Cancelled Ur Specific [place] Cancelled Urine Protein Cancelled Urine Glucose (UA) Cancelled Urine Ketones Cancelled Urine Occult Blood Cancelled Urine Nitrite Cancelled Urine Bilirubin Cancelled Urine Ictotest Cancelled Urine Urobilinogen Cancelled Ur Leukocyte Esterase Cancelled Ur Microscopic Review Cancelled Urine Culture Comments Cancelled Salicylates Urine Opiates Screen NEGATIVE Ur Oxycodone Screen POSITIVE H Urine Methadone Screen NEGATIVE Ur Propoxyphene Screen NEGATIVE Acetaminophen Ur Barbiturates Screen NEGATIVE Ur Tricyclics Screen NEGATIVE Ur Phencyclidine Scrn NEGATIVE Ur Amphetamine Screen NEGATIVE U Methamphetamines Scrn NEGATIVE U Benzodiazepines Scrn NEGATIVE Urine Cocaine Screen NEGATIVE U Cannabinoids Screen NEGATIVE Ethyl Alcohol Serum Ketones - Rads (name of study) head CT Radiology: Prelim report reviewed, EMP read contemporaneously, See rad report ( Normal head CT. ) cxr Radiology: Prelim report reviewed, EMP read contemporaneously, See rad report (New right middle lung opacities concerning for pneumonia. ) PD MEDICAL DECISION MAKING - ED course Complexity details: reviewed old records, reviewed results, re-evaluated patient, considered differential, d/w family, d/w sap basis consultant ED course: 33-year-old female appears to be septic. Given IV fluids. Appears to have a right middle lobe pneumonia. Given vancomycin and cefepime. Blood cultures drawn. Ocampo catheter placed. Continues to be altered. No acute findings on head CT. Patient started on the sepsis protocol. She has a port in place as well as peripheral IVs. Discussed the case with the hospitalist, Dr. Adams who accepts. This document was made in part using voice recognition software. While efforts are made to proofread this document, sound alike and grammatical errors may occur. - Critical Care Time(min): 45 Time Includes: Direct patient care, Medical consult, Family consult for tx dec, See progress note Data interpretation: See progress note Procedures included in critical care time: See progress note Procedures excluded from critical care time: See progress note Departure - Departure Disposition: 66 [facility] DC/Xfer Clinical Impression: Sepsis Qualifiers: Sepsis type: sepsis due to unspecified organism Sepsis acute organ dysfunction status: with acute organ dysfunction Severe sepsis acute organ dysfunction type: unspecified Severe sepsis shock status: unspecified Qualified Code(s): A41.9 - Sepsis, unspecified organism Pneumonia Qualifiers: Pneumonia type: due to unspecified organism Laterality: right Lung location: middle lobe of lung Qualified Code(s): J18.1 - Lobar pneumonia, unspecified organism Altered mental status Qualifiers: Altered mental status type: unspecified Qualified Code(s): R41.82 - Altered mental status, unspecified DKA (diabetic ketoacidoses) Qualifiers: Diabetes mellitus type: type 1 Diabetes mellitus complication detail: without coma Qualified Code(s): E10.10 - Type 1 diabetes mellitus with ketoacidosis without coma Condition: Serious Discharge Date/Time: 06/18/19 20:00
[2019-06-18 18:19] LABS: BASOPHILS % (AUTO) 0.5 %; EOSINOPHILS % (AUTO) 44.7 %; HGB - HEMOGLOBIN 7.9 g/dL (12.0-16.0); LYMPHOCYTES % (AUTO) 1.8 %; MEAN CORPUSCULAR HEMOGLOBIN 27.6 pg (27.0-31.0); MEAN CORPUSCULAR HGB CONC 29.9 g/dL (32.0-36.0); MEAN CORPUSCULAR VOLUME 92.3 fL (81.0-99.0); MONOCYTES % (AUTO) 0.7 %; NEUTROPHILS % (AUTO) 49.6 %; PLT - PLATELET COUNT 93 10^3/uL (130-450); RED BLOOD COUNT 2.86 10^6/uL (4.20-5.40); RED CELL DISTRIBUTION WIDTH 21.5 % (12.0-15.0); WHITE BLOOD COUNT 13.6 x10^3/uL (4.8-10.8)
[2019-06-18 18:21] LABS: ABNORMAL LYMPHS % (MANUAL) 0 %; KETONES, SERUM (ACETEST) SMALL (NEGATIVE); LYMPHOCYTES % (MANUAL) 0 %
[2019-06-18 18:25] LABS: MUDS CUTOFF CONCENTRATIONS CUTOFF CONC BELOW:
[2019-06-18 18:33] LABS: ACETAMINOPHEN < 10 ug/mL (10-30); ALBUMIN 1.2 g/dL (3.2-5.5); ALBUMIN/GLOBULIN RATIO 0.3 (1.0-2.2); ALKALINE PHOSPHATASE 567 IU/L (42-121); ALT ALANINE AMINOTRANSFERASE 24 IU/L (10-60); AST ASPARTATE AMINOTRANSFERASE 64 IU/L (10-42); BILIRUBIN,TOTAL 3.6 mg/dL (0.2-1.0); BUN - BLOOD UREA NITROGEN 66 mg/dL (6-20); CALCIUM 7.1 mg/dL (8.5-10.3); CHLORIDE 101 mmol/L (101-111); CREATININE 1.3 mg/dL (0.4-1.0); GFR - MDRD 47 (>89); GLUCOSE 466 mg/dL (70-100); LIPASE 15 U/L (22-51); SALICYLATE < 6.0 mg/dL; SODIUM 133 mmol/L (135-145); TOTAL PROTEIN 5.6 g/dL (6.7-8.2)
[2019-06-18 18:34] LABS: CARBON DIOXIDE - CO2 12 mmol/L (21-32)
[2019-06-18] MEDS ORDERED: MORPHINE 2 MG/ML CARPUJECT IVP STA (18:37)
[2019-06-18 18:51] LABS: BAND NEUTROPHILS % (MANUAL) 22 %; MONOCYTES # (MANUAL) 0.1 10^3/uL (0.0-1.0)
[2019-06-18 18:52] LABS: DIFFERENTIAL COMMENT MANUAL DIFFERENTIAL; PLATELET ESTIMATE, MANUAL DECREASED (<130,000) (NORMAL); PLATELET MORPHOLOGY NORMAL APPEARANCE (NORMAL)
[2019-06-18 18:53] LABS: AMPHETAMINE SCREEN,URINE NEGATIVE (NEGATIVE); BENZODIAZEPINES SCREEN, URINE NEGATIVE (NEGATIVE); COCAINE SCREEN URINE NEGATIVE (NEGATIVE); METHADONE SCREEN, URINE NEGATIVE (NEGATIVE); METHAMPHETAMINES SCREEN, URINE NEGATIVE (NEGATIVE); OPIATE SCREEN, URINE NEGATIVE (NEGATIVE); OXYCODONE SCREEN, URINE POSITIVE (NEGATIVE); PROPOXYPHENE SCREEN, URINE NEGATIVE (NEGATIVE); TRICYCLIC ANTIDEPRESSANT,URINE NEGATIVE (NEGATIVE)
[2019-06-18 18:57] LABS: VBG BASE EXCESS -13.5 mmol/L (-2 - +2); VBG PCO2 25.5 mmHg (41-51); VBG PH 7.28 (7.31-7.41); VBG PO2 35.5 mmHg (25-47); VBG TOTAL CO2 12.5 mmol/L (24-29)
[2019-06-18] MEDS ORDERED: VANCOMYCIN INJ 1.5 GM in SODIUM CHLORIDE 0.9% 500 ML IV STA (19:01)
[2019-06-18] MEDS ORDERED: SODIUM CHLORIDE 0.9% 1,905.09 ML IV STA (19:01)
[2019-06-18] MEDS ORDERED: CEFEPIME 2 GM in SODIUM CHLORIDE 0.9% MINIBAG 100 ML IV STA (19:01)
[2019-06-18] MEDS: INSULIN REGULAR HUMAN 100 UNIT in SODIUM CHLORIDE 0.9% 100ML 99 ML SUBQ STA ×2 (19:05→20:10)
--- NOTE | 2019-06-18 19:18 | XRAY Report ---
Reason: aloc Procedure Date: 06/18/2019 Accession Number: [id number] / [id number] Procedure: XR - Chest 1 View X-Ray CPT Code: 37113 Final Report FULL RESULT: EXAM: CHEST RADIOGRAPHY EXAM DATE: 06/18/2019 06:43 PM. CLINICAL HISTORY: Loss of consciousness. COMPARISON: 11/11/2011 chest x-ray. TECHNIQUE: 1 view. FINDINGS: Lungs/Pleura: There is new opacity in the right mid lung. No pneumothorax or pleural effusions. Mediastinum: Within exam limitations, the cardiomediastinal contour is normal. Other: None. IMPRESSION: New right middle lung opacities concerning for pneumonia. RADIA
[2019-06-18] MEDS ORDERED: HYDROmorphone 1 MG/ML CARPUJECT IVP STA ×2 (19:20→19:25)
[2019-06-18] MEDS ORDERED: WATER FOR INJECTION,STERILE 40 ML ONE (19:33)
[2019-06-18 19:40] LABS: GLUCOSE, URINE (UA) 250 mg/dL (NEGATIVE); KETONES,URINE (UA) TRACE mg/dL (NEGATIVE); LEUKOCYTE ESTERASE, URINE NEGATIVE (NEGATIVE); NITRITE,URINE NEGATIVE (NEGATIVE); OCCULT BLOOD,URINE NEGATIVE (NEGATIVE); PROTEIN,URINE TRACE mg/dL (NEGATIVE); UROBILINOGEN,URINE 1 (NORMAL) E.U./dL (NORMAL)
--- NOTE | 2019-06-18 19:40 | HISTORY & PHYSICAL EXAMINATION ---
Chief Complaint - Chief Complaint Chief Complaint: altered mental status History of Present Illness - Admitted From Admitted From:: [facility] ED - History Obtained From Records Reviewed: yes History obtained from: EMR and spouse Exam Limitations: encephalopathy - History of Present Illness HPI Comment/Other: Patient is a 33 y/o female who presented to the ED via EMS with altered mental status. This history is provided by her because the patient is currently unable to provide. Her reports that last night she appeared weak and tired but was able to communicate. She said she was not feeling well and wanted to be left alone. Her is currently a sound truck operator and works 14 hour shifts. He left for work this morning but called on a friend to go check on the patient. The friend found her significantly altered and called EMS. Her explains that with her current diagnoses, she is usually in bed most of the time and always has nonspecific generalized pain. However 3 days ago she woke up and cooked for her family. They have 3 young children with the oldest one being 12 years of age. She has history of diabetes mellitus Type I. In the ED she was found to have a blood glucose of 466, anion gap of 20 and a bicarbonate level of 12. She also had a chest xray done which showed right middle lung opacities concerning for pneumonia. As a result she was presented for admission. 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 She sees Dr Luong (oncologist) and is on FOLFOX chemotherapy. She was diagnosed last year at the age of 32. At the time she already had metastasis. It is reported that the patient was not a surgical candidate as determined by [facility] Tumor Board on 11/2018. However, the patient presently has a colostomy bag and a peritoneal drainage catheter. Her reports that she had been require frequent ([id number]) paracenteses before the peritoneal drainage was placed on Monday06/11/19. Over the past 1 week she has had about 8L of serous appearing fluid out. Over a 2 week span before this past week, she had 9L out. He reports that she was not febrile at home, did not have a cough and did not complain of one specific pain. At bedside, she is very ashen appearing, frail/cachexic with very dry oral mucosa. She is still very altered. Though her eyes are open and she is moving around in bed, she does not directly respond to verbal or tactile stimuli. She mainly grunts/moans in discomfort. She is tachycardic, tachypneic and rhonchous sounding. She received 3L of normal saline in the ED. However upon arriving to the ICU she was hypotensive with a SBP in the 80's. History - Past Medical History Cardiovascular: reports: Hypertension Respiratory: reports: None Endocrine/Autoimmune: reports: Type 1 diabetes GI: reports: Other (Colon cancer; liver cancer) Psych: reports: Anxiety, Panic attacks, ADD/ADHD, Post traumatic stress disorder Musculoskeletal: reports: Other Derm: reports: Other MRSA Hx?: Yes Other Past Medical History: Metastating descending colon cancer with extensive liver metastasis, malignant ascites and peritoneal carcinomatosis. KRAS, NRAS and BRAF negative. 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 The oldest child is 12 years old. She smokes 1ppd X15 years. She does not drink alcohol or use illicit drugs. - POLST Patient has POLST: No Meds/Allgy - Home Medications Home Medications: Ambulatory Orders Medication Instructions Recorded Confirmed Insulin Glargine,Hum.rec.anlog 30 - 40 unit SQ QDBREAKFAST 02/13/16 06/10/19 [Lantus] Docusate Sodium 200 mg PO BID 06/27/18 06/10/19 Insulin Aspart [NovoLOG] 5 units SUBQ TID PRN MDD sliding 06/27/18 06/10/19 scale clonazePAM [Clonazepam] 0.5 mg PO TID 06/27/18 06/10/19 Ondansetron [Zuplenz] 8 mg PO Q8HR PRN 11/02/18 06/10/19 Polyethylene Glycol 3350 [Miralax] 17 mg PO DAILY PRN 01/03/19 06/10/19 Prochlorperazine Maleate 10 mg PO Q6HR PRN 01/03/19 06/10/19 [Compazine] Potassium Chloride 20 meq PO BID 03/19/19 06/10/19 Insulin Glargine [Lantus Solostar] 20 units SQ DAILY PM 03/21/19 06/10/19 Loperamide [Imodium] 2 mg PO PRN PRN MDD 8/tabs 04/25/19 06/10/19 Oxycodone HCl 10 mg PO Q3HR PRN MDD 8/24 hours 04/25/19 06/10/19 fentaNYL [Fentanyl 75mcg patch] 75 mcg TOP .Q3 04/25/19 06/10/19 - Allergies Allergies/Adverse Reactions: Allergies Allergy/AdvReac Type Severity Reaction Status Date / Time No Known Drug Allergies Allergy Verified 06/18/19 16:43 Review of Systems - Constitutional Constitutional: reports: Fatigue, Weakness - Neurological Neurological: reports: General weakness - Psychiatric Psychiatric: reports: Anxiety - Other Findings Other Findings: ROS is limited because the patient is currently altered and unable to provide. Prior Level of Functionality: patient is usually in bed most of the day. Her mother has been helping with the children lately while her is working. Her is try to get a different job that will enable him be at home more Exam - Vital Signs Vital Signs: Vital Signs x48h Temp Pulse Resp BP Pulse Ox 06/18/19 19:34 134 H 32 H 122/57 L 100 06/18/19 19:00 141 H 37 H 123/57 L 100 06/18/19 18:30 144 H 33 H 109/60 98 06/18/19 18:00 144 H 30 H 152/75 H 100 06/18/19 17:30 143 H 32 H 128/49 L 96 06/18/19 16:50 133 H 26 H 99/48 L 89 L 06/18/19 16:36 36.8 C 147 H 34 H 132/77 H 95 - Physical Exam General Appearance: positive: Severe distress, Lethargic, Other (Fraile, cachexic, ashen). negative: Alert Eyes Bilateral: positive: PERRL, EOMI. negative: No scleral icterus ENT: positive: Dry mucous membranes Neck: positive: Nml inspection, Trachea midline Respiratory: positive: Rhonchi, Other (tachypneic) Cardiovascular: positive: Tachycardia Rectal: positive: Other (Ostomy noted, peritoneal drainage catheter noted) Skin: positive: Pallor Extremities: positive: Non-tender, Nml appearance, No pedal edema Neurologic/Psychiatric: positive: Disoriented to person, Disoriented to place, Disoriented to time Sepsis Event Note (H) - Evaluation Current Stage of Sepsis: Sepsis Possible source of Sepsis: positive: Pulmonary - Sepsis Criteria Sepsis Criteria: Recorded Heart Rate greater than 90 bpm, Recorded Respiratory Rate greater than 20, Respiratory: Increasing oxygen requirements, WBC count greater than 12,000 or less than 4000, SBP drop more than 40mHg, MAP less than 65 mmHg, SBP less than 90 mmHg, Metabolic: lactate > 2 mmol/L, Hepatic: Bilirubin greater than 2mg/dl Conclusion/Plan - Problem List (1) Sepsis Conclusion/Plan: 09/15 to right middle lobe pneumonia Patient started on vancomycin and cefepime. In light of location and concern for possible aspiration, will ad flagyl IV hydration. Lactic acid trended down Qualifiers: Sepsis type: sepsis due to unspecified organism Sepsis acute organ dysfunction status: with acute organ dysfunction Severe sepsis acute organ dysfunction type: unspecified Severe sepsis shock status: unspecified Qualified Code(s): A41.9 - Sepsis, unspecified organism; R65.20 - Severe sepsis without septic shock (2) Pneumonia Conclusion/Plan: Right middle lobe In light of location, suspect aspiration. Broad empiric coverage with vancomycin, cefepime and flagyl. Qualifiers: Pneumonia type: due to unspecified organism Laterality: right Lung location: middle lobe of lung Qualified Code(s): J18.1 - Lobar pneumonia, unspecified organism (3) DKA (diabetic ketoacidoses) Conclusion/Plan: Likely precipitated by sepsis from pneumonia DKA protocol initiated Qualifiers: Diabetes mellitus type: type 1 Diabetes mellitus complication detail: without coma Qualified Code(s): E10.10 - Type 1 diabetes mellitus with ketoacidosis without coma (4) Colon carcinoma metastatic to liver Conclusion/Plan: Patient follows with Dr Luong (oncology). Currently on FOLFOX. In light of metastatic cancer, peritoneal carcinomatosis and recurrent malignant ascites, patient's prognosis is poor. This is further confounded by sepsis and DKA. I discussed this with her and he expressed understanding. He request the patient be Full code. He explained that it is what she would want. This is understandable in light of her age and her young family. I explained as above that she is very sick and that I might have to contact him overnight if she takes a turn for the worse Patient is normally on a fentanyl patch which is due to be changed. However in light of her mentation and low blood pressures. I will not place a new patch at this time. Once patient is more stable, the patch will be replaced to minimize/prevent opiate withdrawal (5) Malignant ascites Conclusion/Plan: Related to colon cancer and peritoneal carcinomatosis Over the past 3 weeks she had a total of 16L out put. 7l in the past week. She has a peritoneal drainage catheter in place. - Lab Results Fish Bones: 06/18/19 18:09 06/19/19 01:15 Core Measures - Anticipated LOS I expect patient to be DC'd or transferred within 96 hours.: Yes - DVT/VTE - Prophylaxis VTE/DVT Device ordered at admit?: Yes VTE/DVT Prophylaxis med ordered at admit?: Yes
--- NOTE | 2019-06-18 19:43 | CT Report ---
Reason: ALOC Procedure Date: 06/18/2019 Accession Number: [id number] / [id number] Procedure: CT - HEAD WO CPT Code: Final Report FULL RESULT: EXAM: CT HEAD EXAM DATE: 06/18/2019 06:58 PM. CLINICAL HISTORY: Loss of consciousness COMPARISON: None. TECHNIQUE: Multiaxial CT images were obtained from the foramen magnum to the vertex. Reformats: Sagittal and coronal. IV contrast: None. In accordance with CT protocol optimization, one or more of the following dose reduction techniques were utilized for this exam: automated exposure control, adjustment of mA and/or KV based on patient size, or use of iterative reconstructive technique. FINDINGS: Parenchyma: No intraparenchymal hemorrhage. No evidence of mass, midline shift, or CT findings of infarction. Donnelly-white differentiation is distinct. Extraaxial Spaces: Normal for age. No subdural or epidural collections identified. Ventricles: Normal in size and position. Sinuses and Orbits: Imaged paranasal sinuses, orbits, and mastoids show no significant abnormality. Bones: No evidence of fracture or calvarial defect. Other: None. IMPRESSION: Normal head CT. RADIA
[2019-06-18 19:45] LABS: CLARITY,URINE CLEAR (CLEAR)
[2019-06-18 19:51] LABS: BILIRUBIN,URINE SMALL (NEGATIVE); ICTOTEST,URINE POSITIVE
[2019-06-18] MEDS ORDERED: VANCOMYCIN PER PHARMACY 100 GM in SODIUM CHLORIDE 0.9% 250 ML IV SCH (20:00)
[2019-06-18] MEDS: INSULIN REGULAR HUMAN 100 UNIT in SODIUM CHLORIDE 0.9% 100ML 99 ML IV SCH (20:10)
[2019-06-18 20:16] LABS: HEMOGLOBIN A1C 0.52 g/dL; HEMOGLOBIN A1C % 8.1 % (4.6-6.2)
[2019-06-18] MEDS: SODIUM CHLORIDE 0.9% 1,000 ML IV SCH (20:43)
[2019-06-18 21:32] LABS: CREATININE 1.2 mg/dL (0.4-1.0); MAGNESIUM 2.2 mg/dL (1.7-2.8); PHOSPHORUS 5.4 mg/dL (2.5-4.6)
[2019-06-18 21:35] LABS: CALCIUM 6.5 mg/dL (8.5-10.3)
[2019-06-18 22:02] LABS: VBG PH 7.252 (7.31-7.41)
[2019-06-18 22:11] LABS: CREATININE 1.1 mg/dL (0.4-1.0)
[2019-06-18 22:17] LABS: CALCIUM 6.3 mg/dL (8.5-10.3)
[2019-06-18] MEDS ORDERED: CALCIUM GLUCONATE 2,000 MG in SODIUM CHLORIDE 0.9% 100ML 100 ML IV ONE ×2 (22:18→22:42)
[2019-06-18] MEDS ORDERED: POTASSIUM CHLOR 10 MEQ/100 ML 10 MEQ/100 ML BAG IV ONE (23:32)
[2019-06-19] MEDS: SODIUM CHLORIDE 0.9% 500 ML IV PRN ×2 (00:04→12:39)
[2019-06-19 00:18] LABS: ABG BASE EXCESS -8.3 mmol/L (-2.0-3.0); ABG HCO3 16.9 mmol/L (22.0-26.0); ABG PCO2 34 mmHg (34-45); ABG PH 7.32 (7.35-7.45); ABG PO2 61 mmHg (80-100)
[2019-06-19 00:19] LABS: ALLEN TEST POSITIVE
[2019-06-19 00:20] LABS: ABG OXYGEN SATURATION 87 % (94-98)
[2019-06-19] MEDS: DEXTROSE 5%-0.45% NACL 1,000 ML IV SCH ×6 (01:21→21:15)
[2019-06-19] MEDS: SODIUM CHLORIDE FLUSH 0.9% 10 ML SYRINGE IVP SCH ×3 (01:23→17:06)
[2019-06-19 01:30] LABS: ABG FRACTION OF INSPIRED O2 0.32
[2019-06-19 01:34] LABS: VBG PH 7.362 (7.31-7.41)
[2019-06-19 01:40] LABS: CALCIUM 6.9 mg/dL (8.5-10.3); CREATININE 0.9 mg/dL (0.4-1.0)
[2019-06-19] MEDS ORDERED: CALCIUM GLUCONATE 1,000 MG in SODIUM CHLORIDE 0.9% 50 ML IV ONE (02:05)
[2019-06-19] MEDS ORDERED: POTASSIUM CHLOR 10 MEQ/100 ML 10 MEQ/100 ML BAG IV ONE ×2 (02:05→05:29)
[2019-06-19] MEDS ORDERED: LORazepam 2 MG/ML VIAL IVP PRN (02:07)
[2019-06-19] MEDS ORDERED: SODIUM CHLORIDE 0.9% 1,000 ML IV ONE (02:10)
[2019-06-19] MEDS: metroNIDAZOLE 500 MG/100 ML 500 MG/100 ML BAG IV SCH ×3 (02:45→19:06)
[2019-06-19] MEDS: SODIUM CHLORIDE 0.9% 1,000 ML IV SCH ×2 (04:08→15:08)
[2019-06-19 04:56] LABS: BASOPHILS % (AUTO) 0.7 %; EOSINOPHILS % (AUTO) 4.6 %; MEAN CORPUSCULAR HEMOGLOBIN 28.3 pg (27.0-31.0); MEAN CORPUSCULAR HGB CONC 30.6 g/dL (32.0-36.0); MEAN CORPUSCULAR VOLUME 92.5 fL (81.0-99.0); MEAN PLATELET VOLUME 10.1 fL (7.9-10.8); MONOCYTES % (AUTO) 0.8 %; NEUTROPHILS % (AUTO) 88.2 %; PLT - PLATELET COUNT 63 10^3/uL (130-450); RED CELL DISTRIBUTION WIDTH 21.2 % (12.0-15.0); WHITE BLOOD COUNT 8.3 x10^3/uL (4.8-10.8)
[2019-06-19 05:03] LABS: HGB - HEMOGLOBIN 6.8 g/dL (12.0-16.0)
[2019-06-19 05:04] LABS: ABNORMAL LYMPHS % (MANUAL) 0 %
[2019-06-19 05:07] LABS: CREATININE 0.8 mg/dL (0.4-1.0); MAGNESIUM 2.1 mg/dL (1.7-2.8); PHOSPHORUS 4.5 mg/dL (2.5-4.6)
[2019-06-19 05:24] LABS: BAND NEUTROPHILS % (MANUAL) 17 %; DIFFERENTIAL COMMENT MANUAL DIFFERENTIAL; LYMPHOCYTES # (MANUAL) 0.4 10^3/uL (1.5-3.5); LYMPHOCYTES % (MANUAL) 5 %; MONOCYTES # (MANUAL) 0.1 10^3/uL (0.0-1.0); PLATELET ESTIMATE, MANUAL DECREASED (<130,000) (NORMAL)
[2019-06-19 05:42] LABS: VBG PH 7.417 (7.31-7.41)
[2019-06-19 05:49] LABS: ABG FRACTION OF INSPIRED O2 0.36; ABG HCO3 18.9 mmol/L (22.0-26.0); ABG OXYGEN SATURATION 94 % (94-98); ABG PCO2 31 mmHg (34-45); ABG PH 7.41 (7.35-7.45); ABG PO2 72 mmHg (80-100); ABG TCO2 19.9 MMOL/L (21.0-29.0); ALLEN TEST POSITIVE
[2019-06-19 06:13] LABS: INR 1.9 (0.8-1.2); PT - PROTHROMBIN TIME 20.7 secs (9.9-12.6)
[2019-06-19] MEDS ORDERED: DEXTROSE 5% 250 ML IV ONE (06:19)
[2019-06-19] MEDS: CEFEPIME 2 GM in SODIUM CHLORIDE 0.9% MINIBAG 100 ML IV SCH ×2 (06:41→19:06)
[2019-06-19] MEDS: PANTOPRAZOLE 40 MG VIAL IVP SCH (06:52)
[2019-06-19] MEDS ORDERED: ENOXAPARIN 40 MG/0.4 ML SYRINGE SUBQ SCH (09:00)
[2019-06-19] MEDS ORDERED: VANCOMYCIN PER PHARMACY 0.001 GM in SODIUM CHLORIDE 0.9% 250 ML IV ONE (09:00)
[2019-06-19] MEDS: INSULIN REGULAR HUMAN 100 UNIT in SODIUM CHLORIDE 0.9% 100ML 99 ML IV SCH (09:15)
[2019-06-19] MEDS: VANCOMYCIN INJ 1 GM in SODIUM CHLORIDE 0.9% 250 ML IV SCH ×2 (10:03→17:03)
[2019-06-19] MEDS ORDERED: oxyCODONE 5 MG TABLET PO PRN (10:49)
[2019-06-19] MEDS: fentaNYL 50 MCG PATCH TOP SCH (11:07)
[2019-06-19] MEDS: fentaNYL 25 MCG PATCH TOP SCH (11:08)
[2019-06-19] MEDS: MORPHINE 2 MG/ML CARPUJECT IVP PRN ×3 (12:26→19:56)
[2019-06-19] MEDS: SODIUM CHLORIDE FLUSH 0.9% 10 ML SYRINGE IVP PRN ×4 (12:31→20:15)
[2019-06-19] MEDS ORDERED: SODIUM CHLORIDE 0.9% 500 ML ONE (12:50)
[2019-06-19] MEDS ORDERED: MORPHINE 2 MG/ML CARPUJECT IVP STA (13:01)
--- NOTE | 2019-06-19 13:27 | CONSULTATION NOTE ---
Palliative Care Follow Up - Referral Referring Provider: April Dorado MD Time of Visit: [id number] Referral setting: Hospitalized patient Referral Reason: Metastatic Colon Cancer with ext. 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 Her original diagnosis was in June 2018, she did receive her therapy done at [facility], unfortunately she had been hoping to be able to qualify for liver resection, and she had too much disease. At that point in time she transferred her care appeared to would be in December 2018. She has been receiving FOLFOX, and has had ongoing recurrent severe ascites, she will often let it go with complications of needing up to 8 liters removed. She had been needing frequent at least every 2 weeks, they had placed a Aspire catheter on 06/11. Her had been trained in draining it, the thought was to do it every 2 or 3 days, and a referral to home health had been made. Patient, consistent with past behaviors, has not allowed to do it on a regular basis, and was only allowed to take 1 bottle off when he did it this last Monday. Patient has high symptom burden, she has been managing her pain on fentanyl 75 mcg every 3 days, with the use of oxycodone 10 mg not to exceed 8 tabs in 24 hours, she often took up to the 8 tabs particularly in the context of reaccumu lating fluid. Her other symptom is severe anxiety disorder, patient has been since diagnosis been somewhat from her body, it took her quite a while to get comfortable with her colostomy and training with home health, she does not participate in keeping her blood sugars under control, and often has had both hyper and hypo-episodes gassing but insulin she might need. She often takes to her bed after chemotherapy, which she has been receiving every 2 weeks. She does understand she has serious illness, but is very fearful about talking about and dying, and has been very resistant to any kind of advanced care planning. She is very stubborn and withdrawn, has allowed few intermittent conversations, but has been willing to meet with me every 2 or 3 weeks. She does have 3 young children, and a complex social situation, her Ramón has been trying to work with both her stubbornness, personality, and significant fear. He reports patient has been not eating very well, mostly noodles and rice, she does appear much more cachectic than last time I saw her, she missed her last appointment. She has had poor clinical response to her FOLFOX, and her CEA has plateaued between 40 and 50 range. She was to receive some reimaging but did not make the appointment. Patient often will withdraw, not allow anybody to help her, and send her away. This is what happened over the weekend, though he does report she was downstairs and cooking the kids dinner on Monday which is not her usual post chemotherapy. He reports the exit site has been leaking at the paracentesis insertion site with the aspire catheter. That she had not shared any symptoms, but did express concern. He is needing to continue to work to support the family, and had his friend Don check on her who is the godparents to their children and found to be altered mental status and sent in via 911. She presents on examination with loose moist cough, some respiratory effort, moaning loudly, her duragesic patch was just replaced about an hour ago. She is unable to focus, she is restless with her legs, the SCDs do appear to be causing her more distress. Patient hates being warm, she is running a low-grade temp, and often has a fan running in her room and even when she is getting chemo. Patient's past medical history includes labile and ongoing hypertension, tachycardia she is often baseline between 101 104, she is not ever been compliant with even low-dose propanolol. She also has diabetes type 1 gestationally induced, and has been fairly loose in her management of her insulin and eating.History of abscesses under her arms, on her foot, she has had high-dose antibiotics in past, has had to have passport removed because of infection. Since most recent hospitalization was at [facility] for hypoglycemia and was discharged on . Social History - Living Situation Living arrangement: At home Living Situation: With spouse/s.o., With family (Patient lives at home with her Ramón, who is been trying to work his schedule around supporting the kids at home, they have a daughter together Malika, and there are 2 older boys that he is raised, as they have been about 10 years. He is tried to be supportive, but patient is often not accepting of help and often makes her own decisions and goes her own ways. She has estranged herself from most of her family and friends, he reports there are many people who offer up help if she let them) Medications/Allergies - Medications Active Medication List: Active Medications Fentanyl (Duragesic) 1 patch TOP Q72H [facility] Last Admin: 06/19/19 11:07 Dose: 1 patch Fentanyl (Duragesic) 1 patch TOP Q72H [facility] Last Admin: 06/19/19 11:08 Dose: 1 patch Cefepime HCl 2 gm/ Sodium (Chloride) 100 mls @ 200 mls/hr IV Q12H [facility] Last Infusion: 06/19/19 07:19 Dose: Infused Insulin Human Regular 100 unit (/ Sodium Chloride) 100 mls @ 6.35 mls/hr IV .[id number] [facility]; Protocol Last Titration: 06/19/19 12:00 Dose: 0.04 unit/kg/hr, 3 mls/hr Sodium Chloride (Normal Saline 0.9%) 1,000 mls @ 125 mls/hr IV .Q8H [facility] Last Infusion: 06/19/19 08:07 Dose: Infused Vancomycin HCl 1 gm/ Sodium (Chloride) 250 mls @ 167 mls/hr IV Q8H [facility] Last Infusion: 06/19/19 11:43 Dose: Infused Sodium Chloride (Normal Saline 0.9%) 500 mls @ 0 mls/hr IV Q24H PRN PRN Reason: TKO RATE Last Admin: 06/19/19 12:39 Dose: 20 mls/hr Metronidazole (Flagyl 500 Mg/100 Ml) 500 mg in 100 mls @ 100 mls/hr IV Q8H [facility] Last Infusion: 06/19/19 11:55 Dose: Infused Norepinephrine Bitartrate 8 mg (/ Dextrose) 250 mls @ 15 mls/hr IV .[id number] [facility]; Protocol Last Titration: 06/19/19 12:43 Dose: 0 mcg/min, 0 mls/hr Dextrose/Sodium Chloride (D5.45ns) 1,000 mls @ 175 mls/hr IV .[id number] [facility] Last Infusion: 06/19/19 12:43 Dose: 175 mls/hr Lorazepam (Ativan Inj (Vial)) 1 mg IVP Q2H PRN PRN Reason: Restlessness Morphine Sulfate (Morphine (Carpuject)) 2 mg IVP Q1HR PRN PRN Reason: PAIN Last Admin: 06/19/19 12:26 Dose: 2 mg Ondansetron HCl (Zofran Inj) 4 mg IVP Q6HR PRN PRN Reason: Nausea / Vomiting Oxycodone HCl (Roxicodone) 10 mg PO Q3HR PRN PRN Reason: Breakthrough Pain Pantoprazole Sodium (Protonix) 40 mg IVP QDAC [facility] Last Admin: 06/19/19 06:52 Dose: 40 mg Sodium Chloride (Normal Saline Flush 0.9%) 10 ml IVP 0100,0900,1700 [facility] Last Admin: 06/19/19 11:43 Dose: Not Given Sodium Chloride (Normal Saline Flush 0.9%) 10 ml IVP PRN PRN PRN Reason: NEEDED PER PROVIDER ORDERS Last Admin: 06/19/19 13:10 Dose: 10 ml Insulin Glargine,Hum.rec.anlog [Lantus] 30 - 40 unit SQ QDBREAKFAST 02/13/16 Docusate Sodium 200 mg PO BID 06/27/18 Insulin Aspart [NovoLOG] 0 units SUBQ TID PRN MDD sliding scale 06/27/18 clonazePAM [Clonazepam] 0.5 mg PO TID PRN 06/27/18 Ondansetron [Zuplenz] 8 mg PO Q8HR PRN 11/02/18 Polyethylene Glycol 3350 [Miralax] 17 mg PO DAILY PRN 01/03/19 Prochlorperazine Maleate [Compazine] 10 mg PO Q6HR PRN 01/03/19 Potassium Chloride 20 meq PO BID 03/19/19 Insulin Glargine [Lantus Solostar] 20 units SQ QPM 03/21/19 Loperamide [Imodium] 2 mg PO PRN PRN MDD 8/tabs 04/25/19 Oxycodone HCl 10 mg PO Q3HR PRN MDD 8/24 hours 04/25/19 fentaNYL [Fentanyl 75mcg patch] 75 mcg TOP Q72H 04/25/19 - Allergies Allergies/Adverse Reactions: Allergies Allergy/AdvReac Type Severity Reaction Status Date / Time No Known Drug Allergies Allergy Verified 06/18/19 16:43 Review of Systems - Constitutional Constitutional: reports: Weight loss - Ears, Nose & Throat Ears, Nose & Throat: reports: Dry mouth - Cardiovascular Cardiovascular: reports: Decr. exercise tolerance - Respiratory Respiratory: reports: Cough - Gastrointestinal Gastrointestinal: reports: Other (has diverting colostomy) - Genitourinary Genitourinary: reports: Other (has catheter) - Musculoskeletal Musculoskeletal: reports: Muscle weakness - Integumentary Integumentary: reports: Dryness - Psychiatric Psychiatric: reports: Anxiety - Endocrine Endocrine: reports: Other (diabetes type I) - Hematologic/Lymphatic Hematologic/Lymphatic: reports: Anemia (receiving transfusion), Lymphadenopathy - All Other Systems All Other Systems: reports: Other (limited ROS patient nonverbal) Physical Exam - Vital Signs Vital Signs: Vital Signs x48h Temp Pulse Pulse Resp BP BP Pulse Ox 06/19/19 12:56 37.6 C H 120 H 23 110/76 100 06/19/19 12:31 37.2 C 125 H 19 128/81 H 06/19/19 12:00 37.2 C 128 H 23 108/77 100 06/19/19 11:30 130 H 107/76 06/19/19 11:15 124 H 23 116/69 100 06/19/19 10:45 134 H 119/78 06/19/19 10:30 133 H 109/75 06/19/19 10:15 135 H 125/82 H 06/19/19 10:00 131 H 13 121/77 98 06/19/19 09:53 37.5 C 137 H 24 135/89 H 06/19/19 09:51 135 H 135/89 H 06/19/19 09:33 37.2 C 130 H 24 118/86 H 06/19/19 09:00 37.3 C 132 H 22 123/70 94 06/19/19 08:00 37.3 C 139 H 24 106/72 94 06/19/19 07:00 130 H 29 H 107/81 H 88 L 06/19/19 06:00 132 H 27 H 108/68 98 - Physical Exam General Appearance: positive: Severe distress, Anxious, Lethargic Eyes Bilateral: positive: Other (opening eyes only slightly) ENT: positive: Dry mucous membranes Neck: positive: Trachea midline. negative: No JVD (JVD noted) Cardiovascular: positive: Tachycardia Respiratory: positive: Diminished in bases, Rales, Rhonchi (upper airways) Abdomen: positive: Distended, Taut, Other (soft liquid stool in colostomy) Skin: positive: Pallor, Dryness Extremities: positive: Pedal edema (slight trace edema) Neurologic/Psychiatric: positive: Other (moaning; unable to responds; did decrease distress with removal of SCDs; mod response but still moaning after 2 mg MS; patient with high tolerance to pain and to pain medications) Palliative Care - POLST Patient has POLST: No POLST Status: Full Code Pain: Pain worsening, Comment (Baseline pain has always been deep in her right lower pelvis, often worsens with ascites, improved after draining. Her baseline dosing has been fentanyl 75 mcg patch with 6 to 7-10 mg of oxycodone depending on pressure of ascites. It does appear on examination her pain is abdominal in nature, as well as some sensitivity to her lower extremities.) Feelings of wellbeing/Perceived Quality of Life: Poor, Worsening (per husbands observation) Performance Status: Despite her overall muscle wasting, and continued functional decline, has been ambulatory for short distances, though she does get quite breathless at baseline. She is of course bedbound at this point in time, but has been weakening, does spend most of her time in bed, and increasing difficulties attending to her ADLs. - Palliative Care Discussion: Patient has not been willing up to this point to do any advanced care planning, despite multiple attempts both by myself, [employer], and . Has been has been exploring options as far as being able to support the kids, but would not be able to afford to pay someone to help with assistance in the home. He has been trying to work, juggle taking care of the kids, has shared some of the childcare with her mom. It has been of great frustration as he has others who might be willing to provide support, but she has estranged or not allow this to happen. In the context of her current condition, we did discuss the fact she is quite ill, this could lead to an end-of-life event. At this point in time she is a full code, though we did discuss in the context of her declining status, underlying disease process, that if she were to have her heart stop it most likely is as a result of not only her acute illness but her underlying disease process. Counseling provided regarding what constitutes DNA R, DN I, can still choose to be a DNR and still continue with treatment support to see if she turns around, or if patient continues to decline can focus on comfort and transitioning to comfort care. We did agreed to meet again tomorrow morning, to revisit these goals, but did discuss he may be asked to make this decision prior to this. Patient's quality of life has been declining fairly rapidly, as well as her symptom burden increasing, most likely poor clinical response to her current treatment regimen as well as functional decline. These indicate poor prognosis even if she were to respond to the acute interventions offered currently to treat her pneumonia, DKA, and sepsis. Counseling provided regarding the spectrum of care, if possible particularly it this was for end-of-life care would like [place] [facility] [place] but would be okay if needed to be transition to [facility] inpatient hosp[facility]. As far as care in the home, he would not be able to support her or paid caregiving, unless she were expected to make more of a recovery and be able to be somewhat independent again. Though she had been deteriorating as far as ability to participate in not only her own care but in care of the household and family. If patient were to recover enough to participate in decision-making, will need to take in consideration the continuum of care as well as finances of this young family. Patient is a had a long and complex and very fairly traumatic life, with multiple underlying mental health issues. She is long-term been on clonazepam 0.5 mg 3 times a day, to manage her anxiety. Results - Lab Results Lab results reviewed: Yes Fish Bones: 06/19/19 04:40 06/19/19 04:40 Lab and Imaging Results: Lab Results x24hrs 06/19/19 06/19/19 06/19/19 Range/Units 05:50 05:50 05:30 WBC (4.8-10.8) x10^3/uL RBC (4.20-5.40) 10^6/uL Hgb (12.0-16.0) g/dL Hct (37.0-47.0) % MCV (81.0-99.0) fL MCH (27.0-31.0) pg MCHC (32.0-36.0) g/dL RDW (12.0-15.0) % Plt Count (130-450) 10^3/uL MPV (7.9-10.8) fL Neut # (Auto) Lymph # (Auto) [place] # (Auto) Eos # (Auto) Baso # (Auto) Absolute Nucleated RBC Total Counted Band Neuts % (Manual) (0 - 10) % Abnorm Lymph % (Manual) % Nucleated RBC % Neutrophils # (Manual) (1.5-6.6) 10^3/uL Lymphocytes # (Manual) (1.5-3.5) 10^3/uL Monocytes # (Manual) (0.0-1.0) 10^3/uL Eosinophils # (Manual) (0-0.7) 10^3/uL Basophils # (Manual) (0-0.1) 10^3/uL Differential Comment Manual Slide Review WBC Morphology (NORMAL) Platelet Estimate (NORMAL) Platelet Morphology (NORMAL) RBC Morph Micro Appear (NORMAL) PT 20.7 H (9.9-12.6) secs INR 1.9 H (0.8-1.2) Bld Gas Analysis Time Sample Site ABG pH (7.35-7.45) ABG pCO2 (34-45) mmHg ABG pO2 (80-100) mmHg ABG HCO3 (22.0-26.0) mmol/L ABG Total CO2 (21.0-29.0) MMOL/L ABG O2 Saturation (94-98) % ABG Base Excess (-2.0-3.0) mmol/L Ramón Test VBG pH 7.417 H (7.31-7.41) VBG pCO2 (41-51) mmHg VBG pO2 (25-47) mmHg VBG HCO3 (23-28) mmol/L VBG Total CO2 (24-29) mmol/L VBG O2 Saturation (60-80) % VBG Base Excess (-2 - +2) mmol/L Ionized Calcium 1.03 L (1.15-1.33) mmol/L O2 Delivery Device O2 Liters/Min LPM FiO2 Sodium (135-145) mmol/L Potassium (3.5-5.0) mmol/L Chloride (101-111) mmol/L Carbon Dioxide (21-32) mmol/L Anion Gap (6-13) BUN (6-20) mg/dL Creatinine (0.4-1.0) mg/dL Estimated GFR (MDRD) (>89) Glucose (70-100) mg/dL Glycated Hemoglobin (4.6-6.2) % Estim Average Glucose (70-100) Lactic Acid (0.5-2.2) mmol/L Calcium (8.5-10.3) mg/dL Phosphorus (2.5-4.6) mg/dL Magnesium (1.7-2.8) mg/dL Total Bilirubin (0.2-1.0) mg/dL AST (10-42) IU/L ALT (10-60) IU/L Alkaline Phosphatase (42-121) IU/L Total Creatine Kinase (22-269) IU/L Total Protein (6.7-8.2) g/dL Albumin (3.2-5.5) g/dL Globulin (2.1-4.2) g/dL Albumin/Globulin Ratio (1.0-2.2) Lipase (22-51) U/L TSH (0.34-5.60) uIU/mL Urine Color Urine Clarity Urine pH Ur Specific [place] Urine Protein Urine Glucose (UA) Urine Ketones Urine Occult Blood Urine Nitrite Urine Bilirubin Urine Ictotest Urine Urobilinogen Ur Leukocyte Esterase Ur Microscopic Review Urine Culture Comments Nasal Screen MRSA (PCR) (NEGATIVE) Salicylates mg/dL Urine Opiates Screen (NEGATIVE) Ur Oxycodone Screen (NEGATIVE) Urine Methadone Screen (NEGATIVE) Ur Propoxyphene Screen (NEGATIVE) Acetaminophen (10-30) ug/mL Ur Barbiturates Screen (NEGATIVE) Ur Tricyclics Screen (NEGATIVE) Ur Phencyclidine Scrn (NEGATIVE) Ur Amphetamine Screen (NEGATIVE) U Methamphetamines Scrn (NEGATIVE) U Benzodiazepines Scrn (NEGATIVE) Urine Cocaine Screen (NEGATIVE) U Cannabinoids Screen (NEGATIVE) Ethyl Alcohol mg/dL Serum Ketones (NEGATIVE) Blood Type A NEGATIVE Antibody Screen NEGATIVE Crossmatch IS Only See Detail 06/19/19 06/19/19 06/19/19 Range/Units 05:15 04:40 04:40 WBC 8.3 (4.8-10.8) x10^3/uL RBC 2.40 L (4.20-5.40) 10^6/uL Hgb 6.8 L* (12.0-16.0) g/dL Hct 22.2 L (37.0-47.0) % MCV 92.5 (81.0-99.0) fL MCH 28.3 (27.0-31.0) pg MCHC 30.6 L (32.0-36.0) g/dL RDW 21.2 H (12.0-15.0) % Plt Count 63 L (130-450) 10^3/uL MPV 10.1 (7.9-10.8) fL Neut # (Auto) Not Reportable Lymph # (Auto) Not Reportable [place] # (Auto) Not Reportable Eos # (Auto) Not Reportable Baso # (Auto) Not Reportable Absolute Nucleated RBC Not Reportable Total Counted 100 Band Neuts % (Manual) 17 H (0 - 10) % Abnorm Lymph % (Manual) 0 % Nucleated RBC % Not Reportable Neutrophils # (Manual) 7.8 H (1.5-6.6) 10^3/uL Lymphocytes # (Manual) 0.4 L (1.5-3.5) 10^3/uL Monocytes # (Manual) 0.1 (0.0-1.0) 10^3/uL Eosinophils # (Manual) 0.0 (0-0.7) 10^3/uL Basophils # (Manual) 0.0 (0-0.1) 10^3/uL Differential Comment MANUAL DIFFERENTIAL Manual Slide Review WBC Morphology (NORMAL) Platelet Estimate DECREASED (<130,000) (NORMAL) Platelet Morphology (NORMAL) RBC Morph Micro Appear 1+ OVALOCYTES (NORMAL) PT (9.9-12.6) secs INR (0.8-1.2) Bld Gas Analysis Time 0527 Sample Site RIGHT RADIAL ABG pH 7.41 (7.35-7.45) ABG pCO2 31 L (34-45) mmHg ABG pO2 72 L (80-100) mmHg ABG HCO3 18.9 L (22.0-26.0) mmol/L ABG Total CO2 19.9 L (21.0-29.0) MMOL/L ABG O2 Saturation 94 (94-98) % ABG Base Excess -5.0 L (-2.0-3.0) mmol/L Ramón Test POSITIVE VBG pH (7.31-7.41) VBG pCO2 (41-51) mmHg VBG pO2 (25-47) mmHg VBG HCO3 (23-28) mmol/L VBG Total CO2 (24-29) mmol/L VBG O2 Saturation (60-80) % VBG Base Excess (-2 - +2) mmol/L Ionized Calcium (1.15-1.33) mmol/L O2 Delivery Device OXYMASK O2 Liters/Min 4.00 LPM FiO2 0.36 Sodium 138 (135-145) mmol/L Potassium 4.3 (3.5-5.0) mmol/L Chloride 113 H (101-111) mmol/L Carbon Dioxide 17 L (21-32) mmol/L Anion Gap 8.0 (6-13) BUN 59 H (6-20) mg/dL Creatinine 0.8 (0.4-1.0) mg/dL Estimated GFR (MDRD) 82 L (>89) Glucose 158 H (70-100) mg/dL Glycated Hemoglobin (4.6-6.2) % Estim Average Glucose (70-100) Lactic Acid (0.5-2.2) mmol/L Calcium 7.0 L (8.5-10.3) mg/dL Phosphorus 4.5 (2.5-4.6) mg/dL Magnesium 2.1 (1.7-2.8) mg/dL Total Bilirubin (0.2-1.0) mg/dL AST (10-42) IU/L ALT (10-60) IU/L Alkaline Phosphatase (42-121) IU/L Total Creatine Kinase (22-269) IU/L Total Protein (6.7-8.2) g/dL Albumin (3.2-5.5) g/dL Globulin (2.1-4.2) g/dL Albumin/Globulin Ratio (1.0-2.2) Lipase (22-51) U/L TSH (0.34-5.60) uIU/mL Urine Color Urine Clarity Urine pH Ur Specific [place] Urine Protein Urine Glucose (UA) Urine Ketones Urine Occult Blood Urine Nitrite Urine Bilirubin Urine Ictotest Urine Urobilinogen Ur Leukocyte Esterase Ur Microscopic Review Urine Culture Comments Nasal Screen MRSA (PCR) (NEGATIVE) Salicylates mg/dL Urine Opiates Screen (NEGATIVE) Ur Oxycodone Screen (NEGATIVE) Urine Methadone Screen (NEGATIVE) Ur Propoxyphene Screen (NEGATIVE) Acetaminophen (10-30) ug/mL Ur Barbiturates Screen (NEGATIVE) Ur Tricyclics Screen (NEGATIVE) Ur Phencyclidine Scrn (NEGATIVE) Ur Amphetamine Screen (NEGATIVE) U Methamphetamines Scrn (NEGATIVE) U Benzodiazepines Scrn (NEGATIVE) Urine Cocaine Screen (NEGATIVE) U Cannabinoids Screen (NEGATIVE) Ethyl Alcohol mg/dL Serum Ketones (NEGATIVE) Blood Type Antibody Screen Crossmatch IS Only 06/19/19 06/19/19 06/19/19 Range/Units 01:15 01:15 01:15 WBC (4.8-10.8) x10^3/uL RBC (4.20-5.40) 10^6/uL Hgb (12.0-16.0) g/dL Hct (37.0-47.0) % MCV (81.0-99.0) fL MCH (27.0-31.0) pg MCHC (32.0-36.0) g/dL RDW (12.0-15.0) % Plt Count (130-450) 10^3/uL MPV (7.9-10.8) fL Neut # (Auto) Lymph # (Auto) [place] # (Auto) Eos # (Auto) Baso # (Auto) Absolute Nucleated RBC Total Counted Band Neuts % (Manual) (0 - 10) % Abnorm Lymph % (Manual) % Nucleated RBC % Neutrophils # (Manual) (1.5-6.6) 10^3/uL Lymphocytes # (Manual) (1.5-3.5) 10^3/uL Monocytes # (Manual) (0.0-1.0) 10^3/uL Eosinophils # (Manual) (0-0.7) 10^3/uL Basophils # (Manual) (0-0.1) 10^3/uL Differential Comment Manual Slide Review WBC Morphology (NORMAL) Platelet Estimate (NORMAL) Platelet Morphology (NORMAL) RBC Morph Micro Appear (NORMAL) PT (9.9-12.6) secs INR (0.8-1.2) Bld Gas Analysis Time Sample Site ABG pH (7.35-7.45) ABG pCO2 (34-45) mmHg ABG pO2 (80-100) mmHg ABG HCO3 (22.0-26.0) mmol/L ABG Total CO2 (21.0-29.0) MMOL/L ABG O2 Saturation (94-98) % ABG Base Excess (-2.0-3.0) mmol/L Ramón Test VBG pH 7.362 (7.31-7.41) VBG pCO2 (41-51) mmHg VBG pO2 (25-47) mmHg VBG HCO3 (23-28) mmol/L VBG Total CO2 (24-29) mmol/L VBG O2 Saturation (60-80) % VBG Base Excess (-2 - +2) mmol/L Ionized Calcium 1.01 L (1.15-1.33) mmol/L O2 Delivery Device O2 Liters/Min LPM FiO2 Sodium 137 (135-145) mmol/L Potassium 4.1 (3.5-5.0) mmol/L Chloride 111 (101-111) mmol/L Carbon Dioxide 17 L (21-32) mmol/L Anion Gap 9.0 (6-13) BUN 65 H (6-20) mg/dL Creatinine 0.9 (0.4-1.0) mg/dL Estimated GFR (MDRD) 71 L (>89) Glucose 176 H (70-100) mg/dL Glycated Hemoglobin (4.6-6.2) % Estim Average Glucose (70-100) Lactic Acid (0.5-2.2) mmol/L Calcium 6.9 L (8.5-10.3) mg/dL Phosphorus (2.5-4.6) mg/dL Magnesium (1.7-2.8) mg/dL Total Bilirubin (0.2-1.0) mg/dL AST (10-42) IU/L ALT (10-60) IU/L Alkaline Phosphatase (42-121) IU/L Total Creatine Kinase (22-269) IU/L Total Protein (6.7-8.2) g/dL Albumin 1.1 L (3.2-5.5) g/dL Globulin (2.1-4.2) g/dL Albumin/Globulin Ratio (1.0-2.2) Lipase (22-51) U/L TSH (0.34-5.60) uIU/mL Urine Color Urine Clarity Urine pH Ur Specific [place] Urine Protein Urine Glucose (UA) Urine Ketones Urine Occult Blood Urine Nitrite Urine Bilirubin Urine Ictotest Urine Urobilinogen Ur Leukocyte Esterase Ur Microscopic Review Urine Culture Comments Nasal Screen MRSA (PCR) (NEGATIVE) Salicylates mg/dL Urine Opiates Screen (NEGATIVE) Ur Oxycodone Screen (NEGATIVE) Urine Methadone Screen (NEGATIVE) Ur Propoxyphene Screen (NEGATIVE) Acetaminophen (10-30) ug/mL Ur Barbiturates Screen (NEGATIVE) Ur Tricyclics Screen (NEGATIVE) Ur Phencyclidine Scrn (NEGATIVE) Ur Amphetamine Screen (NEGATIVE) U Methamphetamines Scrn (NEGATIVE) U Benzodiazepines Scrn (NEGATIVE) Urine Cocaine Screen (NEGATIVE) U Cannabinoids Screen (NEGATIVE) Ethyl Alcohol mg/dL Serum Ketones (NEGATIVE) Blood Type Antibody Screen Crossmatch IS Only 06/19/19 06/18/19 06/18/19 Range/Units 01:15 23:59 23:55 WBC (4.8-10.8) x10^3/uL RBC (4.20-5.40) 10^6/uL Hgb (12.0-16.0) g/dL Hct (37.0-47.0) % MCV (81.0-99.0) fL MCH (27.0-31.0) pg MCHC (32.0-36.0) g/dL RDW (12.0-15.0) % Plt Count (130-450) 10^3/uL MPV (7.9-10.8) fL Neut # (Auto) Lymph # (Auto) [place] # (Auto) Eos # (Auto) Baso # (Auto) Absolute Nucleated RBC Total Counted Band Neuts % (Manual) (0 - 10) % Abnorm Lymph % (Manual) % Nucleated RBC % Neutrophils # (Manual) (1.5-6.6) 10^3/uL Lymphocytes # (Manual) (1.5-3.5) 10^3/uL Monocytes # (Manual) (0.0-1.0) 10^3/uL Eosinophils # (Manual) (0-0.7) 10^3/uL Basophils # (Manual) (0-0.1) 10^3/uL Differential Comment Manual Slide Review WBC Morphology (NORMAL) Platelet Estimate (NORMAL) Platelet Morphology (NORMAL) RBC Morph Micro Appear (NORMAL) PT (9.9-12.6) secs INR (0.8-1.2) Bld Gas Analysis Time 2355 Sample Site RIGHT RADIAL ABG pH 7.32 L (7.35-7.45) ABG pCO2 34 (34-45) mmHg ABG pO2 61 L (80-100) mmHg ABG HCO3 16.9 L (22.0-26.0) mmol/L ABG Total CO2 18.0 L (21.0-29.0) MMOL/L ABG O2 Saturation 87 L* (94-98) % ABG Base Excess -8.3 L (-2.0-3.0) mmol/L Ramón Test POSITIVE VBG pH (7.31-7.41) VBG pCO2 (41-51) mmHg VBG pO2 (25-47) mmHg VBG HCO3 (23-28) mmol/L VBG Total CO2 (24-29) mmol/L VBG O2 Saturation (60-80) % VBG Base Excess (-2 - +2) mmol/L Ionized Calcium (1.15-1.33) mmol/L O2 Delivery Device OXYMASK O2 Liters/Min LPM FiO2 0.32 Sodium (135-145) mmol/L Potassium (3.5-5.0) mmol/L Chloride (101-111) mmol/L Carbon Dioxide (21-32) mmol/L Anion Gap (6-13) BUN (6-20) mg/dL Creatinine (0.4-1.0) mg/dL Estimated GFR (MDRD) (>89) Glucose 176 H 230 H (70-100) mg/dL Glycated Hemoglobin (4.6-6.2) % Estim Average Glucose (70-100) Lactic Acid (0.5-2.2) mmol/L Calcium (8.5-10.3) mg/dL Phosphorus (2.5-4.6) mg/dL Magnesium (1.7-2.8) mg/dL Total Bilirubin (0.2-1.0) mg/dL AST (10-42) IU/L ALT (10-60) IU/L Alkaline Phosphatase (42-121) IU/L Total Creatine Kinase (22-269) IU/L Total Protein (6.7-8.2) g/dL Albumin (3.2-5.5) g/dL Globulin (2.1-4.2) g/dL Albumin/Globulin Ratio (1.0-2.2) Lipase (22-51) U/L TSH (0.34-5.60) uIU/mL Urine Color Urine Clarity Urine pH Ur Specific [place] Urine Protein Urine Glucose (UA) Urine Ketones Urine Occult Blood Urine Nitrite Urine Bilirubin Urine Ictotest Urine Urobilinogen Ur Leukocyte Esterase Ur Microscopic Review Urine Culture Comments Nasal Screen MRSA (PCR) (NEGATIVE) Salicylates mg/dL Urine Opiates Screen (NEGATIVE) Ur Oxycodone Screen (NEGATIVE) Urine Methadone Screen (NEGATIVE) Ur Propoxyphene Screen (NEGATIVE) Acetaminophen (10-30) ug/mL Ur Barbiturates Screen (NEGATIVE) Ur Tricyclics Screen (NEGATIVE) Ur Phencyclidine Scrn (NEGATIVE) Ur Amphetamine Screen (NEGATIVE) U Methamphetamines Scrn (NEGATIVE) U Benzodiazepines Scrn (NEGATIVE) Urine Cocaine Screen (NEGATIVE) U Cannabinoids Screen (NEGATIVE) Ethyl Alcohol mg/dL Serum Ketones (NEGATIVE) Blood Type Antibody Screen Crossmatch IS Only 06/18/19 06/18/19 06/18/19 Range/Units 22:33 21:55 21:55 WBC (4.8-10.8) x10^3/uL RBC (4.20-5.40) 10^6/uL Hgb (12.0-16.0) g/dL Hct (37.0-47.0) % MCV (81.0-99.0) fL MCH (27.0-31.0) pg MCHC (32.0-36.0) g/dL RDW (12.0-15.0) % Plt Count (130-450) 10^3/uL MPV (7.9-10.8) fL Neut # (Auto) Lymph # (Auto) [place] # (Auto) Eos # (Auto) Baso # (Auto) Absolute Nucleated RBC Total Counted Band Neuts % (Manual) (0 - 10) % Abnorm Lymph % (Manual) % Nucleated RBC % Neutrophils # (Manual) (1.5-6.6) 10^3/uL Lymphocytes # (Manual) (1.5-3.5) 10^3/uL Monocytes # (Manual) (0.0-1.0) 10^3/uL Eosinophils # (Manual) (0-0.7) 10^3/uL Basophils # (Manual) (0-0.1) 10^3/uL Differential Comment Manual Slide Review WBC Morphology (NORMAL) Platelet Estimate (NORMAL) Platelet Morphology (NORMAL) RBC Morph Micro Appear (NORMAL) PT (9.9-12.6) secs INR (0.8-1.2) Bld Gas Analysis Time Sample Site ABG pH (7.35-7.45) ABG pCO2 (34-45) mmHg ABG pO2 (80-100) mmHg ABG HCO3 (22.0-26.0) mmol/L ABG Total CO2 (21.0-29.0) MMOL/L ABG O2 Saturation (94-98) % ABG Base Excess (-2.0-3.0) mmol/L Ramón Test VBG pH 7.252 L (7.31-7.41) VBG pCO2 (41-51) mmHg VBG pO2 (25-47) mmHg VBG HCO3 (23-28) mmol/L VBG Total CO2 (24-29) mmol/L VBG O2 Saturation (60-80) % VBG Base Excess (-2 - +2) mmol/L Ionized Calcium 0.97 L (1.15-1.33) mmol/L O2 Delivery Device O2 Liters/Min LPM FiO2 Sodium 137 (135-145) mmol/L Potassium 4.2 (3.5-5.0) mmol/L Chloride 107 (101-111) mmol/L Carbon Dioxide 13 L (21-32) mmol/L Anion Gap 17.0 H (6-13) BUN 61 H (6-20) mg/dL Creatinine 1.1 H (0.4-1.0) mg/dL Estimated GFR (MDRD) 57 L (>89) Glucose 311 H (70-100) mg/dL Glycated Hemoglobin (4.6-6.2) % Estim Average Glucose (70-100) Lactic Acid 2.0 (0.5-2.2) mmol/L Calcium 6.3 L* (8.5-10.3) mg/dL Phosphorus (2.5-4.6) mg/dL Magnesium (1.7-2.8) mg/dL Total Bilirubin (0.2-1.0) mg/dL AST (10-42) IU/L ALT (10-60) IU/L Alkaline Phosphatase (42-121) IU/L Total Creatine Kinase (22-269) IU/L Total Protein (6.7-8.2) g/dL Albumin (3.2-5.5) g/dL Globulin (2.1-4.2) g/dL Albumin/Globulin Ratio (1.0-2.2) Lipase (22-51) U/L TSH (0.34-5.60) uIU/mL Urine Color Urine Clarity Urine pH Ur Specific [place] Urine Protein Urine Glucose (UA) Urine Ketones Urine Occult Blood Urine Nitrite Urine Bilirubin Urine Ictotest Urine Urobilinogen Ur Leukocyte Esterase Ur Microscopic Review Urine Culture Comments Nasal Screen MRSA (PCR) (NEGATIVE) Salicylates mg/dL Urine Opiates Screen (NEGATIVE) Ur Oxycodone Screen (NEGATIVE) Urine Methadone Screen (NEGATIVE) Ur Propoxyphene Screen (NEGATIVE) Acetaminophen (10-30) ug/mL Ur Barbiturates Screen (NEGATIVE) Ur Tricyclics Screen (NEGATIVE) Ur Phencyclidine Scrn (NEGATIVE) Ur Amphetamine Screen (NEGATIVE) U Methamphetamines Scrn (NEGATIVE) U Benzodiazepines Scrn (NEGATIVE) Urine Cocaine Screen (NEGATIVE) U Cannabinoids Screen (NEGATIVE) Ethyl Alcohol mg/dL Serum Ketones (NEGATIVE) Blood Type Antibody Screen Crossmatch IS Only 06/18/19 06/18/19 06/18/19 Range/Units 21:13 21:13 20:10 WBC (4.8-10.8) x10^3/uL RBC (4.20-5.40) 10^6/uL Hgb (12.0-16.0) g/dL Hct (37.0-47.0) % MCV (81.0-99.0) fL MCH (27.0-31.0) pg MCHC (32.0-36.0) g/dL RDW (12.0-15.0) % Plt Count (130-450) 10^3/uL MPV (7.9-10.8) fL Neut # (Auto) Lymph # (Auto) [place] # (Auto) Eos # (Auto) Baso # (Auto) Absolute Nucleated RBC Total Counted Band Neuts % (Manual) (0 - 10) % Abnorm Lymph % (Manual) % Nucleated RBC % Neutrophils # (Manual) (1.5-6.6) 10^3/uL Lymphocytes # (Manual) (1.5-3.5) 10^3/uL Monocytes # (Manual) (0.0-1.0) 10^3/uL Eosinophils # (Manual) (0-0.7) 10^3/uL Basophils # (Manual) (0-0.1) 10^3/uL Differential Comment Manual Slide Review WBC Morphology (NORMAL) Platelet Estimate (NORMAL) Platelet Morphology (NORMAL) RBC Morph Micro Appear (NORMAL) PT (9.9-12.6) secs INR (0.8-1.2) Bld Gas Analysis Time Sample Site ABG pH (7.35-7.45) ABG pCO2 (34-45) mmHg ABG pO2 (80-100) mmHg ABG HCO3 (22.0-26.0) mmol/L ABG Total CO2 (21.0-29.0) MMOL/L ABG O2 Saturation (94-98) % ABG Base Excess (-2.0-3.0) mmol/L Ramón Test VBG pH (7.31-7.41) VBG pCO2 (41-51) mmHg VBG pO2 (25-47) mmHg VBG HCO3 (23-28) mmol/L VBG Total CO2 (24-29) mmol/L VBG O2 Saturation (60-80) % VBG Base Excess (-2 - +2) mmol/L Ionized Calcium (1.15-1.33) mmol/L O2 Delivery Device O2 Liters/Min LPM FiO2 Sodium 137 (135-145) mmol/L Potassium 4.3 (3.5-5.0) mmol/L Chloride 105 (101-111) mmol/L Carbon Dioxide 12 L* (21-32) mmol/L Anion Gap 20.0 H (6-13) BUN 65 H (6-20) mg/dL Creatinine 1.2 H (0.4-1.0) mg/dL Estimated GFR (MDRD) 51 L (>89) Glucose 349 H (70-100) mg/dL Glycated Hemoglobin (4.6-6.2) % Estim Average Glucose (70-100) Lactic Acid (0.5-2.2) mmol/L Calcium 6.5 L* (8.5-10.3) mg/dL Phosphorus 5.4 H (2.5-4.6) mg/dL Magnesium 2.2 (1.7-2.8) mg/dL Total Bilirubin (0.2-1.0) mg/dL AST (10-42) IU/L ALT (10-60) IU/L Alkaline Phosphatase (42-121) IU/L Total Creatine Kinase (22-269) IU/L Total Protein (6.7-8.2) g/dL Albumin (3.2-5.5) g/dL Globulin (2.1-4.2) g/dL Albumin/Globulin Ratio (1.0-2.2) Lipase (22-51) U/L TSH (0.34-5.60) uIU/mL Urine Color Urine Clarity Urine pH Ur Specific [place] Urine Protein Urine Glucose (UA) Urine Ketones Urine Occult Blood Urine Nitrite Urine Bilirubin Urine Ictotest Urine Urobilinogen Ur Leukocyte Esterase Ur Microscopic Review Urine Culture Comments Nasal Screen MRSA (PCR) NEGATIVE (NEGATIVE) Salicylates mg/dL Urine Opiates Screen (NEGATIVE) Ur Oxycodone Screen (NEGATIVE) Urine Methadone Screen (NEGATIVE) Ur Propoxyphene Screen (NEGATIVE) Acetaminophen (10-30) ug/mL Ur Barbiturates Screen (NEGATIVE) Ur Tricyclics Screen (NEGATIVE) Ur Phencyclidine Scrn (NEGATIVE) Ur Amphetamine Screen (NEGATIVE) U Methamphetamines Scrn (NEGATIVE) U Benzodiazepines Scrn (NEGATIVE) Urine Cocaine Screen (NEGATIVE) U Cannabinoids Screen (NEGATIVE) Ethyl Alcohol mg/dL Serum Ketones (NEGATIVE) Blood Type Antibody Screen Crossmatch IS Only 06/18/19 06/18/19 06/18/19 Range/Units 19:30 18:46 18:46 WBC (4.8-10.8) x10^3/uL RBC (4.20-5.40) 10^6/uL Hgb (12.0-16.0) g/dL Hct (37.0-47.0) % MCV (81.0-99.0) fL MCH (27.0-31.0) pg MCHC (32.0-36.0) g/dL RDW (12.0-15.0) % Plt Count (130-450) 10^3/uL MPV (7.9-10.8) fL Neut # (Auto) Lymph # (Auto) [place] # (Auto) Eos # (Auto) Baso # (Auto) Absolute Nucleated RBC Total Counted Band Neuts % (Manual) (0 - 10) % Abnorm Lymph % (Manual) % Nucleated RBC % Neutrophils # (Manual) (1.5-6.6) 10^3/uL Lymphocytes # (Manual) (1.5-3.5) 10^3/uL Monocytes # (Manual) (0.0-1.0) 10^3/uL Eosinophils # (Manual) (0-0.7) 10^3/uL Basophils # (Manual) (0-0.1) 10^3/uL Differential Comment Manual Slide Review WBC Morphology (NORMAL) Platelet Estimate (NORMAL) Platelet Morphology (NORMAL) RBC Morph Micro Appear (NORMAL) PT (9.9-12.6) secs INR (0.8-1.2) Bld Gas Analysis Time Sample Site ABG pH (7.35-7.45) ABG pCO2 (34-45) mmHg ABG pO2 (80-100) mmHg ABG HCO3 (22.0-26.0) mmol/L ABG Total CO2 (21.0-29.0) MMOL/L ABG O2 Saturation (94-98) % ABG Base Excess (-2.0-3.0) mmol/L Ramón Test VBG pH 7.280 L (7.31-7.41) VBG pCO2 25.5 L (41-51) mmHg VBG pO2 35.5 (25-47) mmHg VBG HCO3 11.7 L (23-28) mmol/L VBG Total CO2 12.5 L (24-29) mmol/L VBG O2 Saturation 56.2 L (60-80) % VBG Base Excess -13.5 L (-2 - +2) mmol/L Ionized Calcium (1.15-1.33) mmol/L O2 Delivery Device O2 Liters/Min LPM FiO2 Sodium (135-145) mmol/L Potassium (3.5-5.0) mmol/L Chloride (101-111) mmol/L Carbon Dioxide (21-32) mmol/L Anion Gap (6-13) BUN (6-20) mg/dL Creatinine (0.4-1.0) mg/dL Estimated GFR (MDRD) (>89) Glucose (70-100) mg/dL Glycated Hemoglobin (4.6-6.2) % Estim Average Glucose (70-100) Lactic Acid 2.5 H (0.5-2.2) mmol/L Calcium (8.5-10.3) mg/dL Phosphorus (2.5-4.6) mg/dL Magnesium (1.7-2.8) mg/dL Total Bilirubin (0.2-1.0) mg/dL AST (10-42) IU/L ALT (10-60) IU/L Alkaline Phosphatase (42-121) IU/L Total Creatine Kinase (22-269) IU/L Total Protein (6.7-8.2) g/dL Albumin (3.2-5.5) g/dL Globulin (2.1-4.2) g/dL Albumin/Globulin Ratio (1.0-2.2) Lipase (22-51) U/L TSH (0.34-5.60) uIU/mL Urine Color DARK YELLOW Urine Clarity CLEAR Urine pH 5.0 Ur Specific [place] 1.025 Urine Protein TRACE Urine Glucose (UA) 250 H Urine Ketones TRACE Urine Occult Blood NEGATIVE Urine Nitrite NEGATIVE Urine Bilirubin SMALL H Urine Ictotest Urine Urobilinogen 1 (NORMAL) Ur Leukocyte Esterase NEGATIVE Ur Microscopic Review NOT INDICATED Urine Culture Comments NOT INDICATED Nasal Screen MRSA (PCR) (NEGATIVE) Salicylates mg/dL Urine Opiates Screen (NEGATIVE) Ur Oxycodone Screen (NEGATIVE) Urine Methadone Screen (NEGATIVE) Ur Propoxyphene Screen (NEGATIVE) Acetaminophen (10-30) ug/mL Ur Barbiturates Screen (NEGATIVE) Ur Tricyclics Screen (NEGATIVE) Ur Phencyclidine Scrn (NEGATIVE) Ur Amphetamine Screen (NEGATIVE) U Methamphetamines Scrn (NEGATIVE) U Benzodiazepines Scrn (NEGATIVE) Urine Cocaine Screen (NEGATIVE) U Cannabinoids Screen (NEGATIVE) Ethyl Alcohol mg/dL Serum Ketones (NEGATIVE) Blood Type Antibody Screen Crossmatch IS Only 06/18/19 06/18/19 06/18/19 Range/Units 18:16 18:09 18:09 WBC (4.8-10.8) x10^3/uL RBC (4.20-5.40) 10^6/uL Hgb (12.0-16.0) g/dL Hct (37.0-47.0) % MCV (81.0-99.0) fL MCH (27.0-31.0) pg MCHC (32.0-36.0) g/dL RDW (12.0-15.0) % Plt Count (130-450) 10^3/uL MPV (7.9-10.8) fL Neut # (Auto) Lymph # (Auto) [place] # (Auto) Eos # (Auto) Baso # (Auto) Absolute Nucleated RBC Total Counted Band Neuts % (Manual) (0 - 10) % Abnorm Lymph % (Manual) % Nucleated RBC % Neutrophils # (Manual) (1.5-6.6) 10^3/uL Lymphocytes # (Manual) (1.5-3.5) 10^3/uL Monocytes # (Manual) (0.0-1.0) 10^3/uL Eosinophils # (Manual) (0-0.7) 10^3/uL Basophils # (Manual) (0-0.1) 10^3/uL Differential Comment Manual Slide Review WBC Morphology (NORMAL) Platelet Estimate (NORMAL) Platelet Morphology (NORMAL) RBC Morph Micro Appear (NORMAL) PT (9.9-12.6) secs INR (0.8-1.2) Bld Gas Analysis Time Sample Site ABG pH (7.35-7.45) ABG pCO2 (34-45) mmHg ABG pO2 (80-100) mmHg ABG HCO3 (22.0-26.0) mmol/L ABG Total CO2 (21.0-29.0) MMOL/L ABG O2 Saturation (94-98) % ABG Base Excess (-2.0-3.0) mmol/L Ramón Test VBG pH (7.31-7.41) VBG pCO2 (41-51) mmHg VBG pO2 (25-47) mmHg VBG HCO3 (23-28) mmol/L VBG Total CO2 (24-29) mmol/L VBG O2 Saturation (60-80) % VBG Base Excess (-2 - +2) mmol/L Ionized Calcium (1.15-1.33) mmol/L O2 Delivery Device O2 Liters/Min LPM FiO2 Sodium (135-145) mmol/L Potassium (3.5-5.0) mmol/L Chloride (101-111) mmol/L Carbon Dioxide (21-32) mmol/L Anion Gap (6-13) BUN (6-20) mg/dL Creatinine (0.4-1.0) mg/dL Estimated GFR (MDRD) (>89) Glucose (70-100) mg/dL Glycated Hemoglobin 8.1 H (4.6-6.2) % Estim Average Glucose 186 H (70-100) Lactic Acid (0.5-2.2) mmol/L Calcium (8.5-10.3) mg/dL Phosphorus (2.5-4.6) mg/dL Magnesium 2.4 (1.7-2.8) mg/dL Total Bilirubin (0.2-1.0) mg/dL AST (10-42) IU/L ALT (10-60) IU/L Alkaline Phosphatase (42-121) IU/L Total Creatine Kinase (22-269) IU/L Total Protein (6.7-8.2) g/dL Albumin (3.2-5.5) g/dL Globulin (2.1-4.2) g/dL Albumin/Globulin Ratio (1.0-2.2) Lipase (22-51) U/L TSH (0.34-5.60) uIU/mL Urine Color Cancelled Urine Clarity Cancelled Urine pH Cancelled Ur Specific [place] Cancelled Urine Protein Cancelled Urine Glucose (UA) Cancelled Urine Ketones Cancelled Urine Occult Blood Cancelled Urine Nitrite Cancelled Urine Bilirubin Cancelled Urine Ictotest Cancelled Urine Urobilinogen Cancelled Ur Leukocyte Esterase Cancelled Ur Microscopic Review Cancelled Urine Culture Comments Cancelled Nasal Screen MRSA (PCR) (NEGATIVE) Salicylates mg/dL Urine Opiates Screen NEGATIVE (NEGATIVE) Ur Oxycodone Screen POSITIVE H (NEGATIVE) Urine Methadone Screen NEGATIVE (NEGATIVE) Ur Propoxyphene Screen NEGATIVE (NEGATIVE) Acetaminophen (10-30) ug/mL Ur Barbiturates Screen NEGATIVE (NEGATIVE) Ur Tricyclics Screen NEGATIVE (NEGATIVE) Ur Phencyclidine Scrn NEGATIVE (NEGATIVE) Ur Amphetamine Screen NEGATIVE (NEGATIVE) U Methamphetamines Scrn NEGATIVE (NEGATIVE) U Benzodiazepines Scrn NEGATIVE (NEGATIVE) Urine Cocaine Screen NEGATIVE (NEGATIVE) U Cannabinoids Screen NEGATIVE (NEGATIVE) Ethyl Alcohol mg/dL Serum Ketones (NEGATIVE) Blood Type Antibody Screen Crossmatch IS Only 06/18/19 06/18/19 06/18/19 Range/Units 18:09 18:09 18:09 WBC (4.8-10.8) x10^3/uL RBC (4.20-5.40) 10^6/uL Hgb (12.0-16.0) g/dL Hct (37.0-47.0) % MCV (81.0-99.0) fL MCH (27.0-31.0) pg MCHC (32.0-36.0) g/dL RDW (12.0-15.0) % Plt Count (130-450) 10^3/uL MPV (7.9-10.8) fL Neut # (Auto) Lymph # (Auto) [place] # (Auto) Eos # (Auto) Baso # (Auto) Absolute Nucleated RBC Total Counted Band Neuts % (Manual) (0 - 10) % Abnorm Lymph % (Manual) % Nucleated RBC % Neutrophils # (Manual) (1.5-6.6) 10^3/uL Lymphocytes # (Manual) (1.5-3.5) 10^3/uL Monocytes # (Manual) (0.0-1.0) 10^3/uL Eosinophils # (Manual) (0-0.7) 10^3/uL Basophils # (Manual) (0-0.1) 10^3/uL Differential Comment Manual Slide Review WBC Morphology (NORMAL) Platelet Estimate (NORMAL) Platelet Morphology (NORMAL) RBC Morph Micro Appear (NORMAL) PT (9.9-12.6) secs INR (0.8-1.2) Bld Gas Analysis Time Sample Site ABG pH (7.35-7.45) ABG pCO2 (34-45) mmHg ABG pO2 (80-100) mmHg ABG HCO3 (22.0-26.0) mmol/L ABG Total CO2 (21.0-29.0) MMOL/L ABG O2 Saturation (94-98) % ABG Base Excess (-2.0-3.0) mmol/L Ramón Test VBG pH (7.31-7.41) VBG pCO2 (41-51) mmHg VBG pO2 (25-47) mmHg VBG HCO3 (23-28) mmol/L VBG Total CO2 (24-29) mmol/L VBG O2 Saturation (60-80) % VBG Base Excess (-2 - +2) mmol/L Ionized Calcium (1.15-1.33) mmol/L O2 Delivery Device O2 Liters/Min LPM FiO2 Sodium 133 L (135-145) mmol/L Potassium 5.5 H (3.5-5.0) mmol/L Chloride 101 (101-111) mmol/L Carbon Dioxide 12 L* (21-32) mmol/L Anion Gap 20.0 H (6-13) BUN 66 H (6-20) mg/dL Creatinine 1.3 H (0.4-1.0) mg/dL Estimated GFR (MDRD) 47 L (>89) Glucose 466 H (70-100) mg/dL Glycated Hemoglobin (4.6-6.2) % Estim Average Glucose (70-100) Lactic Acid (0.5-2.2) mmol/L Calcium 7.1 L (8.5-10.3) mg/dL Phosphorus (2.5-4.6) mg/dL Magnesium (1.7-2.8) mg/dL Total Bilirubin 3.6 H (0.2-1.0) mg/dL AST 64 H (10-42) IU/L ALT 24 (10-60) IU/L Alkaline Phosphatase 567 H (42-121) IU/L Total Creatine Kinase 105 (22-269) IU/L Total Protein 5.6 L (6.7-8.2) g/dL Albumin 1.2 L (3.2-5.5) g/dL Globulin 4.4 H (2.1-4.2) g/dL Albumin/Globulin Ratio 0.3 L (1.0-2.2) Lipase 15 L (22-51) U/L TSH 2.50 (0.34-5.60) uIU/mL Urine Color Urine Clarity Urine pH Ur Specific [place] Urine Protein Urine Glucose (UA) Urine Ketones Urine Occult Blood Urine Nitrite Urine Bilirubin Urine Ictotest Urine Urobilinogen Ur Leukocyte Esterase Ur Microscopic Review Urine Culture Comments Nasal Screen MRSA (PCR) (NEGATIVE) Salicylates < 6.0 mg/dL Urine Opiates Screen (NEGATIVE) Ur Oxycodone Screen (NEGATIVE) Urine Methadone Screen (NEGATIVE) Ur Propoxyphene Screen (NEGATIVE) Acetaminophen < 10 L (10-30) ug/mL Ur Barbiturates Screen (NEGATIVE) Ur Tricyclics Screen (NEGATIVE) Ur Phencyclidine Scrn (NEGATIVE) Ur Amphetamine Screen (NEGATIVE) U Methamphetamines Scrn (NEGATIVE) U Benzodiazepines Scrn (NEGATIVE) Urine Cocaine Screen (NEGATIVE) U Cannabinoids Screen (NEGATIVE) Ethyl Alcohol < 5.0 mg/dL Serum Ketones SMALL H (NEGATIVE) Blood Type Antibody Screen Crossmatch IS Only 06/18/19 Range/Units 18:09 WBC 13.6 H (4.8-10.8) x10^3/uL RBC 2.86 L (4.20-5.40) 10^6/uL Hgb 7.9 L (12.0-16.0) g/dL Hct 26.4 L (37.0-47.0) % MCV 92.3 (81.0-99.0) fL MCH 27.6 (27.0-31.0) pg MCHC 29.9 L (32.0-36.0) g/dL RDW 21.5 H (12.0-15.0) % Plt Count 93 L (130-450) 10^3/uL MPV 11.0 H (7.9-10.8) fL Neut # (Auto) Not Reportable Lymph # (Auto) Not Reportable [place] # (Auto) Not Reportable Eos # (Auto) Not Reportable Baso # (Auto) Not Reportable Absolute Nucleated RBC Not Reportable Total Counted 100 Band Neuts % (Manual) 22 H (0 - 10) % Abnorm Lymph % (Manual) 0 % Nucleated RBC % Not Reportable Neutrophils # (Manual) 13.5 H (1.5-6.6) 10^3/uL Lymphocytes # (Manual) 0.0 L (1.5-3.5) 10^3/uL Monocytes # (Manual) 0.1 (0.0-1.0) 10^3/uL Eosinophils # (Manual) 0.0 (0-0.7) 10^3/uL Basophils # (Manual) 0.0 (0-0.1) 10^3/uL Differential Comment MANUAL DIFFERENTIAL Manual Slide Review Indicated WBC Morphology 2+ TOXIC GRANULATION (NORMAL) Platelet Estimate DECREASED (<130,000) (NORMAL) Platelet Morphology NORMAL APPEARANCE (NORMAL) RBC Morph Micro Appear 1+ SCHISTOCYTES (NORMAL) PT (9.9-12.6) secs INR (0.8-1.2) Bld Gas Analysis Time Sample Site ABG pH (7.35-7.45) ABG pCO2 (34-45) mmHg ABG pO2 (80-100) mmHg ABG HCO3 (22.0-26.0) mmol/L ABG Total CO2 (21.0-29.0) MMOL/L ABG O2 Saturation (94-98) % ABG Base Excess (-2.0-3.0) mmol/L Ramón Test VBG pH (7.31-7.41) VBG pCO2 (41-51) mmHg VBG pO2 (25-47) mmHg VBG HCO3 (23-28) mmol/L VBG Total CO2 (24-29) mmol/L VBG O2 Saturation (60-80) % VBG Base Excess (-2 - +2) mmol/L Ionized Calcium (1.15-1.33) mmol/L O2 Delivery Device O2 Liters/Min LPM FiO2 Sodium (135-145) mmol/L Potassium (3.5-5.0) mmol/L Chloride (101-111) mmol/L Carbon Dioxide (21-32) mmol/L Anion Gap (6-13) BUN (6-20) mg/dL Creatinine (0.4-1.0) mg/dL Estimated GFR (MDRD) (>89) Glucose (70-100) mg/dL Glycated Hemoglobin (4.6-6.2) % Estim Average Glucose (70-100) Lactic Acid (0.5-2.2) mmol/L Calcium (8.5-10.3) mg/dL Phosphorus (2.5-4.6) mg/dL Magnesium (1.7-2.8) mg/dL Total Bilirubin (0.2-1.0) mg/dL AST (10-42) IU/L ALT (10-60) IU/L Alkaline Phosphatase (42-121) IU/L Total Creatine Kinase (22-269) IU/L Total Protein (6.7-8.2) g/dL Albumin (3.2-5.5) g/dL Globulin (2.1-4.2) g/dL Albumin/Globulin Ratio (1.0-2.2) Lipase (22-51) U/L TSH (0.34-5.60) uIU/mL Urine Color Urine Clarity Urine pH Ur Specific [place] Urine Protein Urine Glucose (UA) Urine Ketones Urine Occult Blood Urine Nitrite Urine Bilirubin Urine Ictotest Urine Urobilinogen Ur Leukocyte Esterase Ur Microscopic Review Urine Culture Comments Nasal Screen MRSA (PCR) (NEGATIVE) Salicylates mg/dL Urine Opiates Screen (NEGATIVE) Ur Oxycodone Screen (NEGATIVE) Urine Methadone Screen (NEGATIVE) Ur Propoxyphene Screen (NEGATIVE) Acetaminophen (10-30) ug/mL Ur Barbiturates Screen (NEGATIVE) Ur Tricyclics Screen (NEGATIVE) Ur Phencyclidine Scrn (NEGATIVE) Ur Amphetamine Screen (NEGATIVE) U Methamphetamines Scrn (NEGATIVE) U Benzodiazepines Scrn (NEGATIVE) Urine Cocaine Screen (NEGATIVE) U Cannabinoids Screen (NEGATIVE) Ethyl Alcohol mg/dL Serum Ketones (NEGATIVE) Blood Type Antibody Screen Crossmatch IS Only Impression and Recommendations - Palliative Care Impression: This is a very complex 33-year-old woman with colon cancer and metastatic disease to her liver, and peritoneal carcinomatosis. She recently had an aspire Pleurx catheter placed, for recurrent malignant ascites, has underlying diabetes type 1, and has poor medical adherence to her treatment plan. This is further complicated by her high symptom burden of pain, anxiety, depression, and difficulty coping with a very difficult situation. Palliative care to continue to work with and patient, regarding goals of care in the context of her serious illness and now with acute hospitalization. Recommendations/Counseling Done: 1. Acute on chronic pain multifactorial in origin.Patient has had her fentanyl replaced, would recommend aggressive and ongoing pain management with IV MS 2 mg until fentanyl 75 mcg in at therapeutic level in 7-9 hours. reports because of patient's condition probably has not had oxycodone for a couple of days as well. Patient needs Aspire drained as well as a source of her discomfort, may also be another source of infection given her history, would recommend sampling shared with hospitalist. 2. Anxiety disorder. Is long-term been on clonazepam 0.5 mg 3 times daily, often use more when she is extremely anxious. Patient usually withdraws and pulls and word when she is hospitalized or receiving chemotherapy. At this point in time she is noncommunicative, she may also be at risk for benzodiazepine withdrawal. 3. Metastatic colon cancer with liver, italo, and peritoneal carcinomatosis. Patient was due for restaging scan, she did receive her FOLFOX last week. She has historically been somewhat distant from her diagnosis both emotionally and in the context of her physical symptoms. Last oncology note does note poor clinical response, patient does recover would press further for goals of care conversation. 4. Advanced care planning. Unfortunately patient has not been willing to engage in advanced care planning, nor future planning for her children, and has declined most counseling or social work support. Counseling provided regarding goals of care with , he does perceive her quality of life as declining, she has not been forthright nor participatory in any kind of conversation with him. She has been given the information previously that she had 6 months to a y ear, and is now coming on past this. Counseling provided regarding the continuum of care regarding do not attempt resuscitation/DNI and recommendation if patient were to continue to decline can continue with supportive measures to see if she responds, but would recommend revisiting CODE STATUS. He is aware she is quite fragile, and may need to make a more urgent decision if she were to deteriorate. Also discussed if patient were to continue to decline and transition to comfort/hospice care what limitations are on him as well as options for discharge planning. Time Spent: 60 minutes with greater than 50% of this done in counseling, coordination of care with the hospitalist and ICU nurse, and anticipatory guidance with the .
[2019-06-19] MEDS: LORazepam 2 MG/ML VIAL IVP PRN (13:31)
--- NOTE | 2019-06-19 14:29 | PROVIDER PROGRESS NOTE ---
Assessment/Plan - Problem List (1) Severe sepsis Assessment/Plan: Patient has infection (pneumonia) and gram pos bacteremia, plus encephalopathy Continue aggressive ICU management with iv fluids, iv antibiotics, nd treat underlying problems. Her status was changed to Critical when she debveloped hypotension (requiring pressors today). The [employer] Operator has spoken with bozena several times, updating him on her critical condition with >50% chance of mortality. Will order a consult from Palliative Care, Cathy Osei NP, who knows and follows the patient. (2) Hypotension Assessment/Plan: Suspect multifactorial: septic shock and hypovolemic shock. Increase iv fluid rate, watching for fluid accumulation into ascites. Continue iv antibiotics, await cx. Begun on iv Levophed also today, to keep MAP >60-65 mmHg. (3) Bacteremia due to Streptococcus pneumoniae Assessment/Plan: Her blood cultures have already turned pos in 4 of 4 for Strep pmneumonae. Continue iv Cephalosporin, adjust antibiotics based on sensitivities. Obtain cx daily, until no growth. Will need Echo, to evaluate for endocarditis. Follow CBC daily. (4) Pneumonia Assessment/Plan: She has a RML infiltrate, consistent with either community acquired PNA, or Hosp-acquired, since she was hospitalized for the peritoneal tube placement, or aspiration PNA since she is obtunded and airway may be not protected. Continue iv Cefepime, iv Vanco and iv Flagyl. If any sputum made, send for cx. (5) DKA (diabetic ketoacidoses) Qualifiers: Diabetes mellitus type: type 1 Assessment/Plan: Her AG has improved and glu from 400's to 150's. Continue low dose Insulin drip til ketones cleared. Continue iv hydration, will increase from 125 cc/hr to 175 cc/hr. Follow serum glu, ketones and BMP daily. (6) Altered mental status Assessment/Plan: She has metabolic encephalopathy, from DKA and sepsis. NPo status, and she cannot swallow her po Oxycodone. Continue in ICU. Her moaning and fidgeting is also from withdrawal from anxiolytic meds, per Cathy Osei NP. (7) Colon cancer metastasized to liver Assessment/Plan: Followed at this [facility] and by Palliative Care. The patient had expressed she wants everything done to save her, including Full Code Status and intubation if needed. Will get Palliative Care provider to follow along and provide us info about her Hx, and also give and family support. (8) Malignant ascites Assessment/Plan: She needed paracenreses oi the past until, a tube was placed in the peritoneum last week. Per Palliative Care provider, the tube and bottle are at home, which the can bring in, will drain off 2L. Will send ascites fluid for cell count and cultures (aerobic and anaerobic). (9) Anemia Assessment/Plan: Severe anemia especially after she is about 4L (+) in fluid balance just since admission. Will transfuse 1 U PRBCs, gave verbal consent by phone, for transfusion. Follow H/H q12h. (10) Thrombocytopenia Assessment/Plan: This may also be hemodilutional but concwern over DIC in a septic, bacteremic patient. Follow CBC daily. Check Fibrin degradation products for DIC. (11) History of anxiety Assessment/Plan: Per Cathy Osei, the patiemt was on anxiolytics and may be qithdrawing, since these have not been consumed po. Will order low doses of iv Ativan prn. (12) Chronic pain due to neoplasm Assessment/Plan: Per Cathy Osei, her pain is from the abdominal tumor brden, she required Oxycodone per-admission. She cannot swallow currently. Will order Morphine iv prn pain. (13) Dehydration Assessment/Plan: Clinically still very dry. Continue iv fluids. - Current Meds Current Meds: Current Medications Generic Name Dose Route Start Last Admin Trade Name Freq PRN Reason Stop Dose Admin Fentanyl 1 patch 06/19/19 11:00 06/19/19 11:07 Duragesic TOP 1 patch Q72H AIRAM Administration Fentanyl 1 patch 06/19/19 11:00 06/19/19 11:08 Duragesic TOP 1 patch Q72H AIRAM Administration Cefepime HCl 2 gm/ Sodium 100 mls @ 200 mls/hr 06/19/19 07:00 06/19/19 07:19 Chloride IV Infused Q12H AIRAM Infusion Insulin Human Regular 100 unit 100 mls @ 6.35 mls/hr 06/18/19 20:00 06/19/19 12:00 / Sodium Chloride IV 0.04 unit/kg/hr .[id number] AIRAM 3 mls/hr Titration Protocol 0.1 UNIT/KG/HR Sodium Chloride 1,000 mls @ 125 mls/hr 06/18/19 20:00 06/19/19 08:07 Normal Saline 0.9% IV Infused .Q8H AIRAM Infusion Vancomycin HCl 1 gm/ Sodium 250 mls @ 167 mls/hr 06/19/19 09:00 06/19/19 11:43 Chloride IV Infused Q8H AIRAM Infusion Sodium Chloride 500 mls @ 0 mls/hr 06/18/19 23:08 06/19/19 12:39 Normal Saline 0.9% IV 20 mls/hr Q24H PRN Administration TKO RATE TKO Metronidazole 500 mg in 100 mls @ 100 mls/hr 06/19/19 03:00 06/19/19 11:55 Flagyl 500 Mg/100 Ml IV Infused Q8H AIRAM Infusion Norepinephrine Bitartrate 8 mg 250 mls @ 15 mls/hr 06/19/19 06:00 06/19/19 12:43 / Dextrose IV 0 mcg/min .[id number] AIRAM 0 mls/hr Titration Protocol 8 MCG/MIN Dextrose/Sodium Chloride 1,000 mls @ 175 mls/hr 06/19/19 10:50 06/19/19 12:43 D5.45ns IV 175 mls/hr .[id number] AIRAM Infusion Lorazepam 1 mg 06/19/19 13:06 06/19/19 13:31 Ativan Inj (Vial) IVP 1 mg Q2H PRN Administration Restlessness Morphine Sulfate 2 mg 06/19/19 12:21 06/19/19 12:26 Morphine (Carpuject) IVP 2 mg Q1HR PRN Administration PAIN Pantoprazole Sodium 40 mg 06/19/19 07:00 06/19/19 06:52 Protonix IVP 40 mg QDAC AIRAM Administration Sodium Chloride 10 ml 06/19/19 01:00 06/19/19 11:43 Normal Saline Flush 0.9% IVP Not Given 0100,0900,1700 AIRAM Sodium Chloride 10 ml 06/18/19 19:26 06/19/19 13:33 Normal Saline Flush 0.9% IVP 10 ml PRN PRN Administration NEEDED PER PROVIDER ORDERS - Lab Result Fish Bone Diagrams: 06/19/19 04:40 06/19/19 04:40 - Additional Planning My Orders: My Active Orders 06/19/19 Palliative Care Consult [CONS] Routine 06/19/19 10:49 oxyCODONE [Roxicodone] 10 mg PO Q3HR PRN 06/19/19 10:50 Dextrose 5%-0.45% NaCl [D5.45ns] 1,000 ml IV 175 mls/hr 06/19/19 11:00 fentaNYL 25 MCG PATCH [Duragesic] 1 patch TOP Q72H fentaNYL 50 MCG PATCH [Duragesic] 1 patch TOP Q72H 06/19/19 12:21 Morphine Inj (Carpuject) [Morphine (Carpuject)] 2 mg IVP Q1HR PRN 06/19/19 13:06 LORazepam INJ [Ativan Inj (Vial)] 1 mg IVP Q2H PRN Subjective - Subjective Nursing Reports: Other (Moaning (as if in pain) and fidgeting, not answering to name or any questions) Objective Vital Signs: Vital Signs - 24 hr 06/18/19 06/18/19 06/18/19 16:36 16:50 17:30 Temperature 36.8 C Heart Rate 147 H 133 H 143 H Heart Rate [ Monitoring electrodes] Respiratory 34 H 26 H 32 H Rate Blood Pressure 132/77 H 99/48 L 128/49 L Blood Pressure [Right Brachial artery] O2 Saturation 95 89 L 96 06/18/19 06/18/19 06/18/19 18:00 18:30 19:00 Temperature Heart Rate 144 H 144 H 141 H Heart Rate [ Monitoring electrodes] Respiratory 30 H 33 H 37 H Rate Blood Pressure 152/75 H 109/60 123/57 L Blood Pressure [Right Brachial artery] O2 Saturation 100 98 100 06/18/19 06/18/19 06/18/19 19:34 20:01 20:09 Temperature 37.2 C Heart Rate 134 H 133 H 149 H Heart Rate [ Monitoring electrodes] Respiratory 32 H 32 H 31 H Rate Blood Pressure 122/57 L 133/59 H Blood Pressure [Right Brachial artery] O2 Saturation 100 98 06/18/19 06/18/19 06/18/19 20:10 20:11 20:15 Temperature Heart Rate 146 H 145 H Heart Rate [ Monitoring electrodes] Respiratory 33 H 34 H 26 H Rate Blood Pressure 147/65 H Blood Pressure [Right Brachial artery] O2 Saturation 06/18/19 06/18/19 06/18/19 20:17 20:18 20:20 Temperature 36.7 C Heart Rate 149 H 148 H 146 H Heart Rate [ 143 H Monitoring electrodes] Respiratory 30 H 29 H 29 H Rate Blood Pressure 105/70 Blood Pressure 105/70 [Right Brachial artery] O2 Saturation 95 06/18/19 06/18/19 06/18/19 20:25 20:29 20:30 Temperature Heart Rate 148 H 146 H 142 H Heart Rate [ 147 H Monitoring electrodes] Respiratory 20 31 H 28 H Rate Blood Pressure 112/64 Blood Pressure 112/64 [Right Brachial artery] O2 Saturation 92 06/18/19 06/18/19 06/18/19 20:31 20:35 20:40 Temperature Heart Rate 140 H 135 H 131 H Heart Rate [ Monitoring electrodes] Respiratory 30 H 27 H 26 H Rate Blood Pressure Blood Pressure [Right Brachial artery] O2 Saturation 06/18/19 06/18/19 06/18/19 20:44 20:45 20:46 Temperature Heart Rate 130 H 130 H 130 H Heart Rate [ Monitoring electrodes] Respiratory 25 H 25 H 26 H Rate Blood Pressure 82/41 L Blood Pressure [Right Brachial artery] O2 Saturation 06/18/19 06/18/19 06/18/19 20:47 20:50 20:51 Temperature Heart Rate 131 H 129 H 128 H Heart Rate [ Monitoring electrodes] Respiratory 27 H 29 H 27 H Rate Blood Pressure 82/49 L 87/42 L Blood Pressure [Right Brachial artery] O2 Saturation 06/18/19 06/18/19 06/18/19 20:55 20:59 21:00 Temperature Heart Rate 127 H 127 H 126 H Heart Rate [ 132 H Monitoring electrodes] Respiratory 27 H 24 27 H Rate Blood Pressure 89/45 L Blood Pressure 89/45 L [Right Brachial artery] O2 Saturation 96 06/18/19 06/18/19 06/18/19 21:01 21:05 21:10 Temperature Heart Rate 127 H 133 H 135 H Heart Rate [ Monitoring electrodes] Respiratory 26 H 20 29 H Rate Blood Pressure Blood Pressure [Right Brachial artery] O2 Saturation 06/18/19 06/18/19 06/18/19 21:14 21:15 21:16 Temperature Heart Rate 132 H 130 H 128 H Heart Rate [ Monitoring electrodes] Respiratory 28 H 29 H 30 H Rate Blood Pressure 88/49 L Blood Pressure [Right Brachial artery] O2 Saturation 1106/18/19 06/18/19 21:20 21:25 21:29 Temperature Heart Rate 127 H 128 H 125 H Heart Rate [ Monitoring electrodes] Respiratory 29 H 30 H 28 H Rate Blood Pressure Blood Pressure [Right Brachial artery] O2 Saturation 06/18/19 06/18/19 06/18/19 21:30 21:31 21:35 Temperature Heart Rate 126 H 125 H 126 H Heart Rate [ Monitoring electrodes] Respiratory 28 H 28 H 28 H Rate Blood Pressure 91/39 L Blood Pressure [Right Brachial artery] O2 Saturation 06/18/19 06/18/19 06/18/19 21:40 21:45 21:50 Temperature Heart Rate 125 H 124 H 130 H Heart Rate [ Monitoring electrodes] Respiratory 28 H 28 H 26 H Rate Blood Pressure Blood Pressure [Right Brachial artery] O2 Saturation 06/18/19 06/18/19 06/18/19 22:00 22:30 22:35 Temperature Heart Rate 135 H 130 H Heart Rate [ 128 H Monitoring electrodes] Respiratory 28 H 30 H 33 H Rate Blood Pressure Blood Pressure 94/41 L [Right Brachial artery] O2 Saturation 93 06/18/19 06/18/19 06/18/19 22:40 22:45 22:50 Temperature Heart Rate 127 H 126 H 127 H Heart Rate [ Monitoring electrodes] Respiratory 33 H 31 H 28 H Rate Blood Pressure Blood Pressure [Right Brachial artery] O2 Saturation 06/18/19 06/18/19 06/18/19 22:55 22:59 23:00 Temperature Heart Rate 131 H 131 H 130 H Heart Rate [ 130 H Monitoring electrodes] Respiratory 32 H 31 H 32 H Rate Blood Pressure 109/61 Blood Pressure 109/61 [Right Brachial artery] O2 Saturation 93 06/18/19 06/18/19 06/18/19 23:01 23:05 23:10 Temperature Heart Rate 130 H 129 H 136 H Heart Rate [ Monitoring electrodes] Respiratory 32 H 31 H 28 H Rate Blood Pressure Blood Pressure [Right Brachial artery] O2 Saturation 06/18/19 06/18/19 06/18/19 23:15 23:20 23:25 Temperature Heart Rate 134 H 136 H 136 H Heart Rate [ Monitoring electrodes] Respiratory 33 H 31 H 28 H Rate Blood Pressure Blood Pressure [Right Brachial artery] O2 Saturation 06/18/19 06/18/19 06/18/19 23:30 23:35 23:40 Temperature Heart Rate 136 H 137 H 136 H Heart Rate [ Monitoring electrodes] Respiratory 26 H 34 H 35 H Rate Blood Pressure Blood Pressure [Right Brachial artery] O2 Saturation 06/18/19 06/18/19 06/18/19 23:45 23:50 23:55 Temperature Heart Rate 142 H 135 H 143 H Heart Rate [ Monitoring electrodes] Respiratory 35 H 33 H 32 H Rate Blood Pressure Blood Pressure [Right Brachial artery] O2 Saturation 06/18/19 06/19/19 06/19/19 23:59 00:00 00:01 Temperature Heart Rate 136 H 141 H 141 H Heart Rate [ 136 H Monitoring electrodes] Respiratory 33 H 23 32 H Rate Blood Pressure 101/65 Blood Pressure 101/65 [Right Brachial artery] O2 Saturation 97 06/19/19 06/19/19 06/19/19 00:05 00:10 00:15 Temperature Heart Rate 135 H 138 H 133 H Heart Rate [ Monitoring electrodes] Respiratory 31 H 27 H 34 H Rate Blood Pressure Blood Pressure [Right Brachial artery] O2 Saturation 06/19/19 06/19/19 06/19/19 00:20 00:25 00:30 Temperature Heart Rate 132 H 134 H 131 H Heart Rate [ Monitoring electrodes] Respiratory 33 H 31 H 33 H Rate Blood Pressure Blood Pressure [Right Brachial artery] O2 Saturation 06/19/19 06/19/19 06/19/19 00:35 00:40 00:45 Temperature Heart Rate 129 H 130 H 129 H Heart Rate [ Monitoring electrodes] Respiratory 33 H 30 H 34 H Rate Blood Pressure Blood Pressure [Right Brachial artery] O2 Saturation 06/19/19 06/19/19 06/19/19 00:50 00:55 00:59 Temperature Heart Rate 128 H 130 H 129 H Heart Rate [ Monitoring electrodes] Respiratory 35 H 33 H 33 H Rate Blood Pressure Blood Pressure [Right Brachial artery] O2 Saturation 06/19/19 06/19/19 06/19/19 01:00 01:01 01:05 Temperature Heart Rate 129 H 129 H 130 H Heart Rate [ 129 H Monitoring electrodes] Respiratory 31 H 34 H 33 H Rate Blood Pressure 78/49 L Blood Pressure 84/51 L [Right Brachial artery] O2 Saturation 98 06/19/19 06/19/19 06/19/19 01:09 01:10 01:11 Temperature Heart Rate 131 H 132 H 133 H Heart Rate [ Monitoring electrodes] Respiratory 34 H 31 H 34 H Rate Blood Pressure 84/51 L Blood Pressure [Right Brachial artery] O2 Saturation 06/19/19 06/19/19 06/19/19 01:15 01:20 01:25 Temperature Heart Rate 131 H 140 H 132 H Heart Rate [ Monitoring electrodes] Respiratory 33 H 24 33 H Rate Blood Pressure Blood Pressure [Right Brachial artery] O2 Saturation 06/19/19 06/19/19 06/19/19 01:30 01:35 01:40 Temperature Heart Rate 132 H 132 H 131 H Heart Rate [ Monitoring electrodes] Respiratory 32 H 31 H 32 H Rate Blood Pressure Blood Pressure [Right Brachial artery] O2 Saturation 06/19/19 06/19/19 06/19/19 01:45 01:50 01:55 Temperature Heart Rate 130 H 129 H 129 H Heart Rate [ Monitoring electrodes] Respiratory 33 H 32 H 30 H Rate Blood Pressure Blood Pressure [Right Brachial artery] O2 Saturation 06/19/19 06/19/19 06/19/19 01:59 02:00 02:01 Temperature Heart Rate 128 H 128 H 128 H Heart Rate [ 128 H Monitoring electrodes] Respiratory 34 H 31 H 32 H Rate Blood Pressure 87/51 L Blood Pressure 87/51 L [Right Brachial artery] O2 Saturation 100 06/19/19 06/19/19 06/19/19 02:05 02:10 02:15 Temperature Heart Rate 129 H 128 H 129 H Heart Rate [ Monitoring electrodes] Respiratory 31 H 31 H 31 H Rate Blood Pressure Blood Pressure [Right Brachial artery] O2 Saturation 06/19/19 06/19/19 06/19/19 02:20 02:25 02:30 Temperature Heart Rate 133 H 129 H 127 H Heart Rate [ Monitoring electrodes] Respiratory 26 H 31 H 31 H Rate Blood Pressure Blood Pressure [Right Brachial artery] O2 Saturation 06/19/19 06/19/19 06/19/19 02:35 02:40 02:45 Temperature Heart Rate 126 H 126 H 125 H Heart Rate [ Monitoring electrodes] Respiratory 28 H 30 H 28 H Rate Blood Pressure Blood Pressure [Right Brachial artery] O2 Saturation 06/19/19 06/19/19 06/19/19 02:50 02:55 02:59 Temperature Heart Rate 124 H 124 H 123 H Heart Rate [ Monitoring electrodes] Respiratory 29 H 30 H 31 H Rate Blood Pressure Blood Pressure [Right Brachial artery] O2 Saturation 06/19/19 06/19/19 06/19/19 03:00 03:01 03:02 Temperature Heart Rate 123 H 127 H 124 H Heart Rate [ 123 H Monitoring electrodes] Respiratory 29 H 29 H 27 H Rate Blood Pressure 85/43 L 90/60 Blood Pressure 90/60 [Right Brachial artery] O2 Saturation 100 06/19/19 06/19/19 06/19/19 03:05 03:10 03:15 Temperature Heart Rate 123 H 134 H 131 H Heart Rate [ Monitoring electrodes] Respiratory 24 22 31 H Rate Blood Pressure Blood Pressure [Right Brachial artery] O2 Saturation 06/19/19 06/19/19 06/19/19 03:20 03:25 03:30 Temperature Heart Rate 126 H 125 H 124 H Heart Rate [ Monitoring electrodes] Respiratory 31 H 30 H 29 H Rate Blood Pressure Blood Pressure [Right Brachial artery] O2 Saturation 06/19/19 06/19/19 06/19/19 03:35 03:40 03:45 Temperature Heart Rate 124 H 123 H 122 H Heart Rate [ Monitoring electrodes] Respiratory 26 H 29 H 31 H Rate Blood Pressure Blood Pressure [Right Brachial artery] O2 Saturation 06/19/19 06/19/19 06/19/19 03:50 03:55 03:59 Temperature Heart Rate 122 H 123 H 123 H Heart Rate [ Monitoring electrodes] Respiratory 29 H 27 H 27 H Rate Blood Pressure Blood Pressure [Right Brachial artery] O2 Saturation 06/19/19 06/19/19 06/19/19 04:00 04:01 04:05 Temperature 37.4 C Heart Rate 135 H 135 H 132 H Heart Rate [ 131 H Monitoring electrodes] Respiratory 22 32 H 27 H Rate Blood Pressure 98/60 Blood Pressure 98/60 [Right Brachial artery] O2 Saturation 100 06/19/19 06/19/19 06/19/19 04:10 04:15 04:20 Temperature Heart Rate 133 H 131 H 128 H Heart Rate [ Monitoring electrodes] Respiratory 29 H 27 H 26 H Rate Blood Pressure Blood Pressure [Right Brachial artery] O2 Saturation 06/19/19 06/19/19 06/19/19 04:25 04:30 04:35 Temperature Heart Rate 128 H 127 H 129 H Heart Rate [ Monitoring electrodes] Respiratory 25 H 26 H 25 H Rate Blood Pressure Blood Pressure [Right Brachial artery] O2 Saturation 06/19/19 06/19/19 06/19/19 04:40 04:45 04:50 Temperature Heart Rate 127 H 126 H 126 H Heart Rate [ Monitoring electrodes] Respiratory 25 H 25 H 25 H Rate Blood Pressure Blood Pressure [Right Brachial artery] O2 Saturation 06/19/19 06/19/19 06/19/19 04:55 04:59 05:00 Temperature Heart Rate 125 H 127 H 133 H Heart Rate [ 132 H Monitoring electrodes] Respiratory 24 24 20 Rate Blood Pressure 86/55 L Blood Pressure 86/55 L [Right Brachial artery] O2 Saturation 96 06/19/19 06/19/19 06/19/19 05:01 05:05 05:10 Temperature Heart Rate 132 H 135 H 131 H Heart Rate [ Monitoring electrodes] Respiratory 25 H 22 26 H Rate Blood Pressure Blood Pressure [Right Brachial artery] O2 Saturation 06/19/19 06/19/19 06/19/19 05:15 05:20 06:00 Temperature Heart Rate 131 H 131 H Heart Rate [ 132 H Monitoring electrodes] Respiratory 27 H 26 H 27 H Rate Blood Pressure Blood Pressure 108/68 [Right Brachial artery] O2 Saturation 98 06/19/19 06/19/19 06/19/19 07:00 08:00 09:00 Temperature 37.3 C 37.3 C Heart Rate Heart Rate [ 130 H 139 H 132 H Monitoring electrodes] Respiratory 29 H 24 22 Rate Blood Pressure Blood Pressure 107/81 H 106/72 123/70 [Right Brachial artery] O2 Saturation 88 L 94 94 06/19/19 06/19/19 06/19/19 09:33 09:51 09:53 Temperature 37.2 C 37.5 C Heart Rate 130 H 137 H Heart Rate [ 135 H Monitoring electrodes] Respiratory 24 24 Rate Blood Pressure 118/86 H 135/89 H Blood Pressure 135/89 H [Right Brachial artery] O2 Saturation 06/19/19 06/19/19 06/19/19 10:00 10:15 10:30 Temperature Heart Rate Heart Rate [ 131 H 135 H 133 H Monitoring electrodes] Respiratory 13 Rate Blood Pressure Blood Pressure 121/77 125/82 H 109/75 [Right Brachial artery] O2 Saturation 98 06/19/19 06/19/19 06/19/19 10:45 11:15 11:30 Temperature Heart Rate Heart Rate [ 134 H 124 H 130 H Monitoring electrodes] Respiratory 23 Rate Blood Pressure Blood Pressure 119/78 116/69 107/76 [Right Brachial artery] O2 Saturation 100 11/06/19 11/06/19 11/06/19 12:00 12:31 12:56 Temperature 37.2 C 37.2 C 37.6 C H Heart Rate 125 H Heart Rate [ 128 H 120 H Monitoring electrodes] Respiratory 23 19 23 Rate Blood Pressure 128/81 H Blood Pressure 108/77 110/76 [Right Brachial artery] O2 Saturation 100 100 06/19/19 14:00 Temperature 37.6 C H Heart Rate Heart Rate [ 114 H Monitoring electrodes] Respiratory 20 Rate Blood Pressure Blood Pressure 110/65 [Right Brachial artery] O2 Saturation 100 Oxygen O2 Source Room air I&O (Last 24 Hrs): Intake and Output Totals x24h 06/17/19 06/18/19 06/19/19 23:59 23:59 23:59 Intake Total 4744.151 4371.326 Output Total 240 1006 Balance 4504.151 3365.326 General: Other (CAchectic with temporal wasting, moaning and fidgeting, not answering to name, does withdraw to pain) HEENT: Mucous membr. moist/pink, Other (Poor oral hygiene) Neck: Supple, No JVD Neuro: Disoriented, Other (agitated, not responding to verbal stimuli, moving all extremities) Cardiovascular: Regular rate, No murmurs Respiratory: No respiratory distress, Breath sounds nml Abdomen: Soft, Other (RLQ tube, LLQ colostomy) Extremities: Other (Trace pedal edema) Skin: No rashes (Pale) - Results Results: Laboratory Results WBC 8.3 x10^3/uL (4.8-10.8) 06/19/19 04:40 RBC 2.40 10^6/uL (4.20-5.40) L 06/19/19 04:40 Hgb 6.8 g/dL (12.0-16.0) L* 06/19/19 04:40 Hct 22.2 % (37.0-47.0) L 06/19/19 04:40 MCV 92.5 fL (81.0-99.0) 06/19/19 04:40 MCH 28.3 pg (27.0-31.0) 06/19/19 04:40 MCHC 30.6 g/dL (32.0-36.0) L 06/19/19 04:40 RDW 21.2 % (12.0-15.0) H 06/19/19 04:40 Plt Count 63 10^3/uL (130-450) L 06/19/19 04:40 MPV 10.1 fL (7.9-10.8) 06/19/19 04:40 Neut # (Auto) Not Reportable 06/19/19 04:40 Lymph # (Auto) Not Reportable 06/19/19 04:40 [place] # (Auto) Not Reportable 06/19/19 04:40 Eos # (Auto) Not Reportable 06/19/19 04:40 Baso # (Auto) Not Reportable 06/19/19 04:40 Absolute Nucleated RBC Not Reportable 06/19/19 04:40 Total Counted 100 06/19/19 04:40 Band Neuts % (Manual) 17 % (0-10) H 06/19/19 04:40 Abnorm Lymph % (Manual) 0 % 06/19/19 04:40 Nucleated RBC % Not Reportable 06/19/19 04:40 Neutrophils # (Manual) 7.8 10^3/uL (1.5-6.6) H 06/19/19 04:40 Lymphocytes # (Manual) 0.4 10^3/uL (1.5-3.5) L 06/19/19 04:40 Monocytes # (Manual) 0.1 10^3/uL (0.0-1.0) 06/19/19 04:40 Eosinophils # (Manual) 0.0 10^3/uL (0-0.7) 06/19/19 04:40 Basophils # (Manual) 0.0 10^3/uL (0-0.1) 06/19/19 04:40 Differential Comment MANUAL DIFFERENTIAL 06/19/19 04:40 Manual Slide Review Indicated 06/18/19 18:09 WBC Morphology 2+ TOXIC GRANULATION (NORMAL) 06/18/19 18:09 Platelet Estimate DECREASED (<130,000) (NORMAL) 06/19/19 04:40 Platelet Morphology NORMAL APPEARANCE (NORMAL) 06/18/19 18:09 RBC Morph Micro Appear 2+ ANISOCYTOSIS (NORMAL) 1+ SCHISTOCYTES (NORMAL) 1 08/18/18 18:09 RBC Morph Micro Appear 1+ ANISOCYTOSIS (NORMAL) 1+ HYPOCHROMASIA (NORMAL) 1+ OVALOCYTES (NORMAL) 06/19/19 04:40 RBC Morph Micro Appear 1+ ANISOCYTOSIS (NORMAL) 1+ HYPOCHROMASIA (NORMAL) 1+ OVALOCYTES (NORMAL) 06/19/19 04:40 RBC Morph Micro Appear 1+ ANISOCYTOSIS (NORMAL) 1+ HYPOCHROMASIA (NORMAL) 1+ OVALOCYTES (NORMAL) 06/19/19 04:40 PT 20.7 secs (9.9-12.6) H 06/19/19 05:50 INR 1.9 (0.8-1.2) H 06/19/19 05:50 Bld Gas Analysis Time 0506/19/19 05:15 Sample Site RIGHT RADIAL 06/19/19 05:15 ABG pH 7.41 (7.35-7.45) 06/19/19 05:15 ABG pCO2 31 mmHg (34-45) L 06/19/19 05:15 ABG pO2 72 mmHg (80-100) L 06/19/19 05:15 ABG HCO3 18.9 mmol/L (22.0-26.0) L 06/19/19 05:15 ABG Total CO2 19.9 MMOL/L (21.0-29.0) L 06/19/19 05:15 ABG O2 Saturation 94 % (94-98) 06/19/19 05:15 ABG Base Excess -5.0 mmol/L (-2.0-3.0) L 06/19/19 05:15 Ramón Test POSITIVE 06/19/19 05:15 VBG pH 7.417 (7.31-7.41) H 06/19/19 05:30 VBG pCO2 25.5 mmHg (41-51) L 06/18/19 18:46 VBG pO2 35.5 mmHg (25-47) 06/18/19 18:46 VBG HCO3 11.7 mmol/L (23-28) L 06/18/19 18:46 VBG Total CO2 12.5 mmol/L (24-29) L 06/18/19 18:46 VBG O2 Saturation 56.2 % (60-80) L 06/18/19 18:46 VBG Base Excess -13.5 mmol/L (-2 - +2) L 06/18/19 18:46 Ionized Calcium 1.03 mmol/L (1.15-1.33) L 06/19/19 05:30 O2 Delivery Device OXYMASK 06/19/19 05:15 O2 Liters/Min 4.00 LPM 06/19/19 05:15 FiO2 0.36 06/19/19 05:15 Sodium 138 mmol/L (135-145) 06/19/19 04:40 Potassium 4.3 mmol/L (3.5-5.0) 06/19/19 04:40 Chloride 113 mmol/L (101-111) H 06/19/19 04:40 Carbon Dioxide 17 mmol/L (21-32) L 06/19/19 04:40 Anion Gap 8.0 (6-13) 06/19/19 04:40 BUN 59 mg/dL (6-20) H 06/19/19 04:40 Creatinine 0.8 mg/dL (0.4-1.0) 06/19/19 04:40 Estimated GFR (MDRD) 82 (>89) L 06/19/19 04:40 Glucose 158 mg/dL (70-100) H 06/19/19 04:40 Glycated Hemoglobin 8.1 % (4.6-6.2) H 06/18/19 18:09 Estim Average Glucose 186 (70-100) H 06/18/19 18:09 Lactic Acid 2.0 mmol/L (0.5-2.2) 06/18/19 22:33 Calcium 7.0 mg/dL (8.5-10.3) L 06/19/19 04:40 Phosphorus 4.5 mg/dL (2.5-4.6) 06/19/19 04:40 Magnesium 2.1 mg/dL (1.7-2.8) 06/19/19 04:40 Total Bilirubin 3.6 mg/dL (0.2-1.0) H 06/18/19 18:09 AST 64 IU/L (10-42) H 06/18/19 18:09 ALT 24 IU/L (10-60) 06/18/19 18:09 Alkaline Phosphatase 567 IU/L (42-121) H 06/18/19 18:09 Total Creatine Kinase 105 IU/L (22-269) 06/18/19 18:09 Total Protein 5.6 g/dL (6.7-8.2) L 06/18/19 18:09 Albumin 1.1 g/dL (3.2-5.5) L 06/19/19 01:15 Globulin 4.4 g/dL (2.1-4.2) H 06/18/19 18:09 Albumin/Globulin Ratio 0.3 (1.0-2.2) L 06/18/19 18:09 Lipase 15 U/L (22-51) L 06/18/19 18:09 TSH 2.50 uIU/mL (0.34-5.60) 06/18/19 18:09 Urine Color DARK YELLOW 06/18/19 19:30 Urine Clarity CLEAR (CLEAR) 06/18/19 19:30 Urine pH 5.0 PH (5.0-7.5) 06/18/19 19:30 Ur Specific [place] 1.025 (1.002-1.030) 06/18/19 19:30 Urine Protein TRACE mg/dL (NEGATIVE) 06/18/19 19:30 Urine Glucose (UA) 250 mg/dL (NEGATIVE) H 06/18/19 19:30 Urine Ketones TRACE mg/dL (NEGATIVE) 06/18/19 19:30 Urine Occult Blood NEGATIVE (NEGATIVE) 06/18/19 19:30 Urine Nitrite NEGATIVE (NEGATIVE) 06/18/19 19:30 Urine Bilirubin SMALL (NEGATIVE) H 06/18/19 19:30 Urine Ictotest Cancelled 06/18/19 18:16 Urine Urobilinogen 1 (NORMAL) E.U./dL (NORMAL) 06/18/19 19:30 Ur Leukocyte Esterase NEGATIVE (NEGATIVE) 06/18/19 19:30 Ur Microscopic Review NOT INDICATED 06/18/19 19:30 Urine Culture Comments NOT INDICATED 06/18/19 19:30 Nasal Screen MRSA (PCR) NEGATIVE (NEGATIVE) 06/18/19 20:10 Salicylates < 6.0 mg/dL 06/18/19 18:09 Urine Opiates Screen NEGATIVE (NEGATIVE) 06/18/19 18:16 Ur Oxycodone Screen POSITIVE (NEGATIVE) H 06/18/19 18:16 Urine Methadone Screen NEGATIVE (NEGATIVE) 06/18/19 18:16 Ur Propoxyphene Screen NEGATIVE (NEGATIVE) 06/18/19 18:16 Acetaminophen < 10 ug/mL (10-30) L 06/18/19 18:09 Ur Barbiturates Screen NEGATIVE (NEGATIVE) 06/18/19 18:16 Ur Tricyclics Screen NEGATIVE (NEGATIVE) 06/18/19 18:16 Ur Phencyclidine Scrn NEGATIVE (NEGATIVE) 06/18/19 18:16 Ur Amphetamine Screen NEGATIVE (NEGATIVE) 06/18/19 18:16 U Methamphetamines Scrn NEGATIVE (NEGATIVE) 06/18/19 18:16 U Benzodiazepines Scrn NEGATIVE (NEGATIVE) 06/18/19 18:16 Urine Cocaine Screen NEGATIVE (NEGATIVE) 06/18/19 18:16 U Cannabinoids Screen NEGATIVE (NEGATIVE) 06/18/19 18:16 Ethyl Alcohol < 5.0 mg/dL 06/18/19 18:09 Serum Ketones SMALL (NEGATIVE) H 06/18/19 18:09 Blood Type A NEGATIVE 06/19/19 05:50 Antibody Screen NEGATIVE 06/19/19 05:50 Crossmatch IS Only See Detail 06/19/19 05:50 Sepsis Event Note (H) - Evaluation Current Stage of Sepsis: Sepsis Possible source of Sepsis: positive: Pulmonary - Sepsis Criteria Sepsis Criteria: Recorded Heart Rate greater than 90 bpm, Recorded Respiratory Rate greater than 20, Respiratory: Increasing oxygen requirements, WBC count greater than 12,000 or less than 4000, SBP drop more than 40mHg, MAP less than 65 mmHg, SBP less than 90 mmHg, Metabolic: lactate > 2 mmol/L, Hepatic: Bilirubin greater than 2mg/dl
[2019-06-19 19:07] LABS: HGB - HEMOGLOBIN 8.7 g/dL (12.0-16.0)
[2019-06-19] MEDS ORDERED: INSULIN REGULAR HUMAN 100 UNIT in SODIUM CHLORIDE 0.9% 100ML 99 ML IV ONE (20:09)
[2019-06-19 20:18] LABS: BF COLOR YELLOW; BF SOURCE PERITONEAL; CC,BF RBC < 3000 /mm^3; LYMPHOCYTES %,BODY FLUID 1; MESOTHELIAL %, BF 1 %; MONOCYTES %,BODY FLUID 1 %
[2019-06-19] MEDS: MIN OIL/DIMETHICON/COCONUT OIL 92 GM TUBE TOP PRN (21:15)
[2019-06-20 00:19] LABS: HGB - HEMOGLOBIN 8.5 g/dL (12.0-16.0); MEAN CORPUSCULAR HEMOGLOBIN 28.9 pg (27.0-31.0); MEAN CORPUSCULAR HGB CONC 31.6 g/dL (32.0-36.0); MEAN CORPUSCULAR VOLUME 91.5 fL (81.0-99.0); MEAN PLATELET VOLUME 10.7 fL (7.9-10.8); RED BLOOD COUNT 2.94 10^6/uL (4.20-5.40); RED CELL DISTRIBUTION WIDTH 19.9 % (12.0-15.0); WHITE BLOOD COUNT 7.3 x10^3/uL (4.8-10.8)
[2019-06-20] MEDS: MORPHINE 2 MG/ML CARPUJECT IVP PRN ×7 (00:24→19:22)
[2019-06-20] MEDS: VANCOMYCIN INJ 1 GM in SODIUM CHLORIDE 0.9% 250 ML IV SCH (00:24)
[2019-06-20] MEDS: SODIUM CHLORIDE FLUSH 0.9% 10 ML SYRINGE IVP SCH ×4 (00:24→19:23)
[2019-06-20] MEDS: LORazepam 2 MG/ML VIAL IVP PRN ×3 (02:10→19:45)
[2019-06-20] MEDS: metroNIDAZOLE 500 MG/100 ML 500 MG/100 ML BAG IV SCH ×3 (02:12→18:40)
[2019-06-20] MEDS: ACETAMINOPHEN 650 MG SUPP PR PRN ×2 (02:34→18:15)
[2019-06-20] MEDS ORDERED: ACETAMINOPHEN 650 MG SUPP PR ONE (02:39)
[2019-06-20] MEDS: DEXTROSE 5%-0.45% NACL 1,000 ML IV SCH (03:01)
[2019-06-20 05:21] LABS: VBG PH 7.391 (7.31-7.41)
[2019-06-20 05:23] LABS: BASOPHILS % (AUTO) 0.2 %; EOSINOPHILS % (AUTO) 0.2 %; HGB - HEMOGLOBIN 7.5 g/dL (12.0-16.0); LYMPHOCYTES % (AUTO) 12.9 %; MEAN CORPUSCULAR HEMOGLOBIN 28.6 pg (27.0-31.0); MEAN CORPUSCULAR HGB CONC 31.1 g/dL (32.0-36.0); MEAN PLATELET VOLUME 10.8 fL (7.9-10.8); MONOCYTES % (AUTO) 2.4 %; NEUTROPHILS % (AUTO) 83.4 %; RED BLOOD COUNT 2.62 10^6/uL (4.20-5.40); RED CELL DISTRIBUTION WIDTH 19.9 % (12.0-15.0); WHITE BLOOD COUNT 5.9 x10^3/uL (4.8-10.8)
[2019-06-20 05:30] LABS: CREATININE 0.6 mg/dL (0.4-1.0); MAGNESIUM 1.8 mg/dL (1.7-2.8); PHOSPHORUS 2.9 mg/dL (2.5-4.6)
[2019-06-20 05:32] LABS: PLT - PLATELET COUNT 32 10^3/uL (130-450)
[2019-06-20 05:34] LABS: ABNORMAL LYMPHS % (MANUAL) 0 %
[2019-06-20] MEDS: INSULIN REGULAR HUMAN 100 UNIT in SODIUM CHLORIDE 0.9% 100ML 99 ML IV SCH (05:36)
[2019-06-20] MEDS ORDERED: INSULIN REGULAR HUMAN 100 UNIT in SODIUM CHLORIDE 0.9% 100ML 99 ML IV ONE (05:55)
[2019-06-20] MEDS ORDERED: CALCIUM GLUCONATE 1,000 MG in SODIUM CHLORIDE 0.9% 50 ML IV ONE (06:00)
[2019-06-20] MEDS: POTASSIUM CHLOR 20 MEQ/100 ML 20 MEQ/100 ML BAG IV SCH ×2 (06:09→07:45)
[2019-06-20 06:15] LABS: BAND NEUTROPHILS % (MANUAL) 3 %; LYMPHOCYTES # (MANUAL) 0.5 10^3/uL (1.5-3.5); LYMPHOCYTES % (MANUAL) 8 %; MONOCYTES # (MANUAL) 0.1 10^3/uL (0.0-1.0)
[2019-06-20 06:16] LABS: DIFFERENTIAL COMMENT MANUAL DIFFERENTIAL; PLATELET ESTIMATE, MANUAL DECREASED (<130,000) (NORMAL)
[2019-06-20] MEDS: CEFEPIME 2 GM in SODIUM CHLORIDE 0.9% MINIBAG 100 ML IV SCH ×2 (06:26→18:11)
[2019-06-20] MEDS: PANTOPRAZOLE 40 MG VIAL IVP SCH (06:26)
[2019-06-20] MEDS ORDERED: ALBUMIN 25% 12.5 GM/50 ML VIAL IV SCH (08:04)
[2019-06-20 08:16] LABS: ALBUMIN 1.1 g/dL (3.2-5.5); BILIRUBIN,DIRECT 1.3 mg/dL (0.1-0.5); BILIRUBIN,TOTAL 2.4 mg/dL (0.2-1.0); TOTAL PROTEIN 4.5 g/dL (6.7-8.2)
[2019-06-20 08:40] LABS: VANCOMYCIN,TROUGH 38.8 ug/mL (10.0-20.0)
[2019-06-20] MEDS: D5NS W/20 MEQ KCL 1,000 ML IV SCH ×3 (08:52→21:58)
[2019-06-20] MEDS ORDERED: D5NS W/20 MEQ KCL 1,000 ML IV SCH (09:00)
[2019-06-20] MEDS: SODIUM CHLORIDE FLUSH 0.9% 10 ML SYRINGE IVP PRN (09:00)
[2019-06-20] MEDS: MORPHINE SOL 10 MG/0.5 ML SYRINGE PO PRN ×3 (12:22→21:28)
--- NOTE | 2019-06-20 12:47 | ADVANCE CARE PLANNING NOTE ---
Advance Care Planning - Planning Encounter Date: 06/20/19 Time: 12:15 Purpose: To learn from , what her prognosis and care plans and her wishes are. Parties in Attendance: I spoke to the in a separate area away, from the patient. Decisional Capacity of the Patient: She is currently getting narcotics for pain and is intermittently somnolent, but when she is awake she is communicative but moaning in pain. - Diagnosis for Encounter (1) Colon cancer metastasized to liver Summary: This was diagnosed over a year ago. At that time she was given a year to live. She now gets intermittent CTs of the abdomen to determine the extent of the cancer. She is still getting every 2-week chemotherapy with Dr. Sen at the [facility] [place]. The said that the prognosis is now not known, because she has outlived the one year and because she is so young. (2) Malignant ascites Summary: For several months the patient needed paracentesis done every 2 weeks. Ten days ago she had a peritoneal tube placed and the was to remove 1 L of ascitic fluid by gravity drainage every day, using the Aspire device. The patient would not let the near her, she would say that she was not very uncomfortable and therefore in these past 10 days she is only had one drainage of 2 L done 5 days ago. Yesterday, 2L was removed here. - Encounter Subjective/Patient's Story: This is a 33 y/o with adenocarcinoma of the colon with peritoneal and liver mets, undegoes chemo for a week, every 2 weeks, had Type 1 DM after gestation, and is not compliant with glu management. She has had 4 hospitalizations for infections and has had multiple infected cysts lanced and treated, that she gets in her groin and arms. 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 She is stubborn, withdraws to skin touch, and will not allow the caregiving from the or visiting nurses, that has been ordered. She has become "angry" since having the colon cancer diagnosis. When she has "infections, she needs the strongest antibiotics because she has resistance to some". When she is uncomfortable and moaning in pain, she will not allow care to be done. The requests that her pain meds and anxiety meds be kept up, since she will be stubborn and may "throw things" when she is that way. The 3 children have a iveth relationship with their mother, but they still do care for her, he says. The kids are 13,11 and 6. One girl and 2 boys. Objective/Medical Story: She was admitted with Septic shock, pneumonia, DKA and in pain from the cancer and ascites. She was on a Levophed drip and DKA protocol. Blood cultures grew Strep and CXR shows a pneumonia. She is anemic and needed blood and thrombocytopenic and needed platlets transfused. She has dry mucosa and poor oral hygeine and will not allow the nurse to do oral care. She is on pain meds and antibiotics. Her Palliative Care provider saw her yesterday and advised the peritoneal drainage and said that the patient is very demanding and very stubborn when awake. Goals of Care: The requested that she have good pain control, and also continue her meds for anxiety. He said she is due for a CT of the abdomen, for planning for her oncologist. He said the peritoneal fluid was supposed to be drained 1L daily. I confirmed with him that his discussion with Cathy Osei NP yesterday was that if the patient becomes comatose. he will make her a DNR/DNI. However, the patient and he have never discussed what the patient wants if she is not comatose and codes. Plan: I will have a discussion with the patient about her Code wishes, for now she is a Full Code, since she is not comatose. Full medical care to be continued otherwise (iv fluids, antibiotics, transfusions, CT scans, etc). Code Status: Attempt Resuscitation Time spent on advance care plannin min
--- NOTE | 2019-06-20 12:48 | PROVIDER PROGRESS NOTE ---
Assessment/Plan - Problem List (1) Hypotension Assessment/Plan: No Levophed needed since yesterday evening, but BP is still "soft". Echo done today, and showed an underfilled LV with normal LVEF. Continue iv fluids. (2) Bacteremia due to Streptococcus pneumoniae Assessment/Plan: The initial comment regarding antibx sensitivities from the culture results, states that the cephalosporins are appropriate. Conitnue iv antibiotics. Await daily culture results, til neg. Echo to eval for endocarditis ordered>> no vegetations seen. (3) Pneumonia Assessment/Plan: Today, she has a wet cough (after she was hydrated), cannot expectorate. She cannot follow commands to start Acapella flutter valve and cannot swallow solids yet to get Mucinex for pulmonary toilet. I explain to have the that she cannot be excessively sedated in order to have a good cough. Continue iv antibx (4) DKA (diabetic ketoacidoses) Qualifiers: Diabetes mellitus type: type 1 Assessment/Plan: Ketones have resolved. Will change to liquids and stop Insulin drip, start Lantus at pm plus ss Insulin coverage and glu checks ac and hs, instead of q2h on the Insulin drip. Continue iv hydration containing D5. (5) Altered mental status Assessment/Plan: Apparently she is normally lucid, alert and interactive with people. The family friend, godfather to their children, is the one who found her obtunded and called the ambulance Today she is moaning less, more aware of her surroundings, communicating in complete sentences but still moaning. Will continue with good pain control: Roxanol sublingual, low doses of IV morphine for breakthrough pain, continue pain patch q72 hrs topically. When she is sedated, will have nurse do oral care, since it is not hygienic to stay this way. (6) Colon cancer metastasized to liver Assessment/Plan: Cathy Osei does advise the CT abdomen, in order to prognosticate and plan. Will order CT abd w/ contrast, and gentle sedation. (7) Malignant ascites Assessment/Plan: Will order an additional 2 L of ascites removal today since she is even more distended today, probably from the 8.5L positive fluid balance she is at, since admission. Yesterday's ascites sample which was sent to the lab does show WBCs but no bacteria and the cultures are pending. (8) Anemia Assessment/Plan: Hgb relatively stable after 1U PRBCs transfused yesterday. Follow CBC q12h. (9) Thrombocytopenia Assessment/Plan: She had blood in the colostomy bag yesterday, none further. 1U of plts was ordered for transfusion. Follow CBC q12h. (10) History of anxiety Assessment/Plan: Continue gentle anxiolytic management. 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 She is stubborn, withdraws to skin touch, and will not allow the caregiving from the or visiting nurses, that has been ordered. The requests that her pain meds and anxiety meds be kept up, since she will be stubborn and may "throw things" when she is in pain or anxious. (12) Chronic pain due to neoplasm Assessment/Plan: Continue pain control without over-sedating her. (13) Dehydration Assessment/Plan: She is in 8.5L (+) fluid balance, but Echo shows an underfilled LV. That is likely due to all crystallods being used for violume replacement. Will order 1U of Albumen today. (14) Severe sepsis Assessment/Plan: Hypotension has resolved, her Levophed drip was stopped yesterday, WBC is better. - Current Meds Current Meds: Current Medications Generic Name Dose Route Start Last Admin Trade Name Freq PRN Reason Stop Dose Admin Acetaminophen 650 mg 06/20/19 01:47 06/20/19 02:34 Tylenol IN 650 mg Q8HR PRN Administration Pain or Fever > 38C (100.4F) Fentanyl 1 patch 06/19/19 11:00 06/19/19 11:07 Duragesic TOP 1 patch Q72H AIRAM Administration Fentanyl 1 patch 06/19/19 11:00 06/19/19 11:08 Duragesic TOP 1 patch Q72H AIRAM Administration Cefepime HCl 2 gm/ Sodium 100 mls @ 200 mls/hr 06/19/19 07:00 06/20/19 07:04 Chloride IV Infused Q12H AIRAM Infusion Vancomycin HCl 1 gm/ Sodium 250 mls @ 167 mls/hr 06/19/19 09:00 06/20/19 02:06 Chloride IV Infused Q8H AIRAM Infusion Metronidazole 500 mg in 100 mls @ 100 mls/hr 06/19/19 03:00 06/20/19 11:07 Flagyl 500 Mg/100 Ml IV 100 mls/hr Q8H AIRAM Administration Potassium Chloride/Dextrose/Sod Cl 1,000 mls @ 175 mls/hr 06/20/19 08:08 06/20/19 11:23 IV 175 mls/hr .[id number] AIRAM Infusion Lorazepam 0.5 mg 06/20/19 08:06 06/20/19 09:54 Ativan Inj (Vial) IVP 0.5 mg Q3H PRN Administration Restlessness Mineral Oil 1 applic 06/19/19 19:23 06/19/19 21:15 Cavilon TOP 1 applic PRN PRN Administration Skin Care Morphine Sulfate 2 mg 06/19/19 12:21 06/20/19 11:41 Morphine (Carpuject) IVP 2 mg Q1HR PRN Administration PAIN Morphine Sulfate 10 mg 06/20/19 12:05 06/20/19 12:22 Roxanol PO 10 mg Q4HR PRN Administration PAIN Pantoprazole Sodium 40 mg 06/19/19 07:00 06/20/19 06:26 Protonix IVP 40 mg QDAC AIRAM Administration Sodium Chloride 10 ml 06/19/19 01:00 06/20/19 10:09 Normal Saline Flush 0.9% IVP 10 ml 0100,0900,1700 AIRAM Administration Sodium Chloride 10 ml 06/18/19 19:26 06/20/19 09:00 Normal Saline Flush 0.9% IVP 10 ml PRN PRN Administration NEEDED PER PROVIDER ORDERS - Lab Result Fish Bone Diagrams: 06/20/19 16:58 06/20/19 04:40 - Additional Planning My Orders: My Active Orders 06/19/19 12:21 Morphine Inj (Carpuject) [Morphine (Carpuject)] 2 mg IVP Q1HR PRN 06/19/19 18:00 Miscellaenous Nursing Order [RC] ONCE 06/19/19 18:36 CULTURE, BLOOD #1 [RM] Urgent 06/19/19 18:42 CULTURE, BLOOD #2 [RM] Urgent 06/19/19 18:45 CUL,BODY FLUID(AEROBIC) [RM] Routine MISC TEST QUEST AMBIENT [REFLAB] Routine Miscellaneous Laboratory Order [LAB] Urgent 06/19/19 19:23 Min Oil/Dimeth/Coconut Oil Crm [Cavilon] 1 applic TOP PRN PRN 06/20/19 08:00 Echo Transthoracic Complete [ECHO] Routine 06/20/19 08:06 LORazepam INJ [Ativan Inj (Vial)] 0.5 mg IVP Q3H PRN 06/20/19 08:08 D5ns W/20 Meq KCl 1,000 ml IV 175 mls/hr 06/20/19 12:05 Morphine Oral Soln [Roxanol] 10 mg PO Q4HR PRN 06/20/19 12:38 Blood Glucose Checks - Eating [RC] 0800,1200,1700,2100 06/20/19 12:39 Miscellaenous Nursing Order [RC] ONCE 06/20/19 17:00 CBC - COMP BLD CT W/AUTO DIFF [HEME] Timed CULTURE, BLOOD #1 [RM] Routine Insulin Aspart [NovoLOG] 1 - 5 unit SUBQ 0800,1200,1700,2100 06/20/19 21:00 Insulin Glargine [Lantus Solostar] 10 units SUBQ QPM 06/20/19 Lunch Full Liquid Diet [DIET] 06/21/19 05:30 VANCOMYCIN RANDOM [CHEM] Timed Subjective - Subjective Patient Reports: Pain Nursing Reports: Other (Answers appropriately, then starts moaning.) Objective Vital Signs: Vital Signs - 24 hr 06/19/19 06/19/19 06/19/19 12:56 14:00 15:00 Temperature 37.6 C H 37.6 C H 37.6 C H Heart Rate Heart Rate [ 120 H 114 H 110 H Monitoring electrodes] Respiratory 23 20 22 Rate Blood Pressure Blood Pressure 110/76 110/65 88/53 L [Right Brachial artery] O2 Saturation 100 100 100 06/19/19 06/19/19 06/19/19 15:06 16:01 16:02 Temperature 37.7 C H Heart Rate 115 H Heart Rate [ 112 H 118 H Monitoring electrodes] Respiratory 19 20 Rate Blood Pressure Blood Pressure 98/59 L 112/81 H [Right Brachial artery] O2 Saturation 100 06/19/19 06/19/19 06/19/19 16:05 16:10 16:15 Temperature Heart Rate 123 H 127 H 125 H Heart Rate [ Monitoring electrodes] Respiratory 22 27 H 34 H Rate Blood Pressure Blood Pressure [Right Brachial artery] O2 Saturation 06/19/19 06/19/19 06/19/19 16:20 16:25 16:30 Temperature Heart Rate 128 H 119 H 123 H Heart Rate [ Monitoring electrodes] Respiratory 17 24 26 H Rate Blood Pressure Blood Pressure [Right Brachial artery] O2 Saturation 06/19/19 06/19/19 06/19/19 16:35 16:40 16:45 Temperature Heart Rate 118 H 115 H 114 H Heart Rate [ Monitoring electrodes] Respiratory 27 H 27 H 29 H Rate Blood Pressure Blood Pressure [Right Brachial artery] O2 Saturation 06/19/19 06/19/19 06/19/19 16:50 16:55 16:59 Temperature Heart Rate 114 H 121 H 117 H Heart Rate [ Monitoring electrodes] Respiratory 23 18 25 H Rate Blood Pressure Blood Pressure [Right Brachial artery] O2 Saturation 06/19/19 06/19/19 06/19/19 17:00 17:01 17:05 Temperature 37.6 C H Heart Rate 124 H 120 H 116 H Heart Rate [ 122 H Monitoring electrodes] Respiratory 28 H 27 H 27 H Rate Blood Pressure 117/87 H Blood Pressure 117/87 H [Right Brachial artery] O2 Saturation 99 06/19/19 06/19/19 06/19/19 17:10 17:15 17:20 Temperature Heart Rate 115 H 119 H 117 H Heart Rate [ Monitoring electrodes] Respiratory 30 H 26 H 27 H Rate Blood Pressure Blood Pressure [Right Brachial artery] O2 Saturation 06/19/19 06/19/19 06/19/19 17:25 17:30 17:35 Temperature Heart Rate 124 H 117 H 115 H Heart Rate [ Monitoring electrodes] Respiratory 27 H 27 H 28 H Rate Blood Pressure Blood Pressure [Right Brachial artery] O2 Saturation 06/19/19 06/19/19 06/19/19 17:40 17:45 17:50 Temperature Heart Rate 119 H 129 H 122 H Heart Rate [ Monitoring electrodes] Respiratory 25 H 27 H 23 Rate Blood Pressure Blood Pressure [Right Brachial artery] O2 Saturation 06/19/19 06/19/19 06/19/19 17:55 17:59 18:00 Temperature Heart Rate 133 H 127 H 123 H Heart Rate [ Monitoring electrodes] Respiratory 23 23 18 Rate Blood Pressure 123/85 H Blood Pressure [Right Brachial artery] O2 Saturation 06/19/19 06/19/19 06/19/19 18:01 18:05 18:07 Temperature 37.6 C H Heart Rate 123 H 121 H Heart Rate [ 125 H Monitoring electrodes] Respiratory 11 L 18 22 Rate Blood Pressure Blood Pressure 123/85 H [Right Brachial artery] O2 Saturation 100 06/19/19 06/19/19 06/19/19 18:10 18:15 18:20 Temperature Heart Rate 121 H 119 H 118 H Heart Rate [ Monitoring electrodes] Respiratory 27 H 21 21 Rate Blood Pressure Blood Pressure [Right Brachial artery] O2 Saturation 06/19/19 06/19/19 06/19/19 18:25 18:30 18:35 Temperature Heart Rate 120 H 123 H 119 H Heart Rate [ Monitoring electrodes] Respiratory 20 21 22 Rate Blood Pressure Blood Pressure [Right Brachial artery] O2 Saturation 06/19/19 06/19/19 06/19/19 18:40 18:45 18:50 Temperature Heart Rate 124 H 120 H 117 H Heart Rate [ Monitoring electrodes] Respiratory 22 21 21 Rate Blood Pressure Blood Pressure [Right Brachial artery] O2 Saturation 06/19/19 06/19/19 06/19/19 18:55 18:59 19:00 Temperature Heart Rate 116 H 121 H 120 H Heart Rate [ Monitoring electrodes] Respiratory 20 25 H 20 Rate Blood Pressure 99/73 Blood Pressure [Right Brachial artery] O2 Saturation 06/19/19 06/19/19 06/19/19 19:01 19:05 19:10 Temperature Heart Rate 120 H 121 H 115 H Heart Rate [ Monitoring electrodes] Respiratory 20 21 22 Rate Blood Pressure Blood Pressure [Right Brachial artery] O2 Saturation 06/19/19 06/19/19 06/19/19 19:15 19:16 19:20 Temperature 37.8 C H Heart Rate 118 H 119 H Heart Rate [ 115 H Monitoring electrodes] Respiratory 20 20 21 Rate Blood Pressure Blood Pressure 99/73 [Right Brachial artery] O2 Saturation 100 06/19/19 06/19/19 06/19/19 19:25 19:30 19:35 Temperature Heart Rate 136 H 136 H 124 H Heart Rate [ Monitoring electrodes] Respiratory 25 H 28 H 12 Rate Blood Pressure Blood Pressure [Right Brachial artery] O2 Saturation 06/19/19 06/19/19 06/19/19 19:39 19:40 19:45 Temperature 37.7 C H Heart Rate 120 H 119 H Heart Rate [ 122 H Monitoring electrodes] Respiratory 19 17 20 Rate Blood Pressure Blood Pressure [Right Brachial artery] O2 Saturation 99 06/19/19 06/19/19 06/19/19 19:50 19:55 19:59 Temperature Heart Rate 118 H 120 H 115 H Heart Rate [ Monitoring electrodes] Respiratory 22 16 20 Rate Blood Pressure Blood Pressure [Right Brachial artery] O2 Saturation 06/19/19 06/19/19 06/19/19 20:00 20:01 20:05 Temperature Heart Rate 119 H 117 H 115 H Heart Rate [ Monitoring electrodes] Respiratory 19 21 22 Rate Blood Pressure 102/77 Blood Pressure [Right Brachial artery] O2 Saturation 06/19/19 06/19/19 06/19/19 20:08 20:10 20:15 Temperature 37.9 C H Heart Rate 120 H 113 H Heart Rate [ 117 H Monitoring electrodes] Respiratory 22 19 20 Rate Blood Pressure Blood Pressure 102/77 [Right Brachial artery] O2 Saturation 24 L 06/19/19 06/19/19 06/19/19 20:20 20:25 20:30 Temperature Heart Rate 114 H 113 H 116 H Heart Rate [ Monitoring electrodes] Respiratory 20 21 20 Rate Blood Pressure Blood Pressure [Right Brachial artery] O2 Saturation 06/19/19 06/19/19 06/19/19 20:35 20:40 20:45 Temperature Heart Rate 113 H 113 H 113 H Heart Rate [ Monitoring electrodes] Respiratory 21 22 20 Rate Blood Pressure Blood Pressure [Right Brachial artery] O2 Saturation 06/19/19 06/19/19 06/19/19 20:50 20:55 20:59 Temperature Heart Rate 114 H 124 H 119 H Heart Rate [ Monitoring electrodes] Respiratory 21 14 31 H Rate Blood Pressure Blood Pressure [Right Brachial artery] O2 Saturation 06/19/19 06/19/19 06/19/19 21:00 21:01 21:05 Temperature 37.8 C H Heart Rate 124 H 129 H 135 H Heart Rate [ 131 H Monitoring electrodes] Respiratory 10 L 29 H 28 H Rate Blood Pressure 107/74 Blood Pressure 107/74 [Right Brachial artery] O2 Saturation 06/19/19 06/19/19 06/19/19 21:10 21:15 21:40 Temperature Heart Rate 126 H 124 H 125 H Heart Rate [ Monitoring electrodes] Respiratory 24 27 H 21 Rate Blood Pressure Blood Pressure [Right Brachial artery] O2 Saturation 06/19/19 06/19/19 06/19/19 21:45 21:50 21:55 Temperature Heart Rate 118 H 120 H 119 H Heart Rate [ Monitoring electrodes] Respiratory 27 H 26 H 26 H Rate Blood Pressure Blood Pressure [Right Brachial artery] O2 Saturation 06/19/19 06/19/19 06/19/19 21:59 22:00 22:01 Temperature Heart Rate 127 H 125 H 122 H Heart Rate [ 124 H Monitoring electrodes] Respiratory 23 23 21 Rate Blood Pressure 113/81 H Blood Pressure 113/81 H [Right Brachial artery] O2 Saturation 97 06/19/19 06/19/19 06/19/19 22:05 22:10 22:15 Temperature Heart Rate 120 H 120 H 119 H Heart Rate [ Monitoring electrodes] Respiratory 13 25 H 25 H Rate Blood Pressure Blood Pressure [Right Brachial artery] O2 Saturation 06/19/19 06/19/19 06/19/19 22:20 22:25 22:30 Temperature Heart Rate 124 H 123 H 120 H Heart Rate [ Monitoring electrodes] Respiratory 23 24 23 Rate Blood Pressure Blood Pressure [Right Brachial artery] O2 Saturation 06/19/19 06/19/19 06/19/19 22:35 22:40 22:45 Temperature Heart Rate 123 H 119 H 127 H Heart Rate [ Monitoring electrodes] Respiratory 25 H 22 22 Rate Blood Pressure Blood Pressure [Right Brachial artery] O2 Saturation 06/19/19 06/19/19 06/19/19 22:50 22:55 22:59 Temperature Heart Rate 120 H 120 H 121 H Heart Rate [ Monitoring electrodes] Respiratory 24 24 24 Rate Blood Pressure Blood Pressure [Right Brachial artery] O2 Saturation 06/19/19 06/19/19 06/19/19 23:00 23:01 23:05 Temperature Heart Rate 128 H 126 H 125 H Heart Rate [ 127 H Monitoring electrodes] Respiratory 27 H 20 25 H Rate Blood Pressure 99/79 Blood Pressure 99/79 [Right Brachial artery] O2 Saturation 96 06/19/19 06/19/19 06/19/19 23:10 23:15 23:20 Temperature Heart Rate 121 H 121 H 122 H Heart Rate [ Monitoring electrodes] Respiratory 24 25 H 24 Rate Blood Pressure Blood Pressure [Right Brachial artery] O2 Saturation 06/19/19 06/19/19 06/19/19 23:25 23:30 23:35 Temperature Heart Rate 129 H 123 H 124 H Heart Rate [ Monitoring electrodes] Respiratory 20 25 H 23 Rate Blood Pressure Blood Pressure [Right Brachial artery] O2 Saturation 06/19/19 06/19/19 06/19/19 23:40 23:45 23:50 Temperature Heart Rate 123 H 130 H 125 H Heart Rate [ Monitoring electrodes] Respiratory 24 23 23 Rate Blood Pressure Blood Pressure [Right Brachial artery] O2 Saturation 06/19/19 06/19/19 06/20/19 23:55 23:59 00:00 Temperature 38.2 C H Heart Rate 123 H 132 H 127 H Heart Rate [ 125 H Monitoring electrodes] Respiratory 24 27 H 20 Rate Blood Pressure 123/78 Blood Pressure 123/78 [Right Brachial artery] O2 Saturation 95 06/20/19 06/20/19 06/20/19 00:01 00:05 00:10 Temperature Heart Rate 127 H 125 H 128 H Heart Rate [ Monitoring electrodes] Respiratory 22 22 21 Rate Blood Pressure Blood Pressure [Right Brachial artery] O2 Saturation 06/20/19 06/20/19 06/20/19 00:15 00:20 00:25 Temperature Heart Rate 127 H 137 H 130 H Heart Rate [ Monitoring electrodes] Respiratory 25 H 21 19 Rate Blood Pressure Blood Pressure [Right Brachial artery] O2 Saturation 06/20/19 06/20/19 06/20/19 00:30 00:35 00:40 Temperature Heart Rate 125 H 122 H 121 H Heart Rate [ Monitoring electrodes] Respiratory 20 20 12 Rate Blood Pressure Blood Pressure [Right Brachial artery] O2 Saturation 06/20/19 06/20/19 06/20/19 00:45 00:50 00:55 Temperature Heart Rate 120 H 121 H 123 H Heart Rate [ Monitoring electrodes] Respiratory 13 23 20 Rate Blood Pressure Blood Pressure [Right Brachial artery] O2 Saturation 06/20/19 06/20/19 06/20/19 00:59 01:00 01:01 Temperature Heart Rate 119 H 119 H 118 H Heart Rate [ 120 H Monitoring electrodes] Respiratory 19 20 20 Rate Blood Pressure 95/66 Blood Pressure 95/66 [Right Brachial artery] O2 Saturation 100 06/20/19 06/20/19 06/20/19 01:05 01:35 01:40 Temperature Heart Rate 120 H 125 H 118 H Heart Rate [ Monitoring electrodes] Respiratory 19 19 20 Rate Blood Pressure Blood Pressure [Right Brachial artery] O2 Saturation 06/20/19 06/20/19 06/20/19 01:45 01:50 01:55 Temperature Heart Rate 124 H 131 H 119 H Heart Rate [ Monitoring electrodes] Respiratory 20 17 20 Rate Blood Pressure Blood Pressure [Right Brachial artery] O2 Saturation 06/20/19 06/20/19 06/20/19 01:59 02:00 02:01 Temperature Heart Rate 122 H 123 H 120 H Heart Rate [ 122 H Monitoring electrodes] Respiratory 22 21 21 Rate Blood Pressure 101/73 Blood Pressure 101/73 [Right Brachial artery] O2 Saturation 100 06/20/19 06/20/19 06/20/19 02:05 02:10 02:15 Temperature Heart Rate 120 H 122 H 123 H Heart Rate [ Monitoring electrodes] Respiratory 23 20 20 Rate Blood Pressure Blood Pressure [Right Brachial artery] O2 Saturation 06/20/19 06/20/19 06/20/19 02:20 02:25 02:30 Temperature Heart Rate 119 H 120 H 120 H Heart Rate [ Monitoring electrodes] Respiratory 20 20 20 Rate Blood Pressure Blood Pressure [Right Brachial artery] O2 Saturation 06/20/19 06/20/19 06/20/19 02:35 02:40 02:45 Temperature Heart Rate 136 H 127 H 125 H Heart Rate [ Monitoring electrodes] Respiratory 24 19 20 Rate Blood Pressure Blood Pressure [Right Brachial artery] O2 Saturation 06/20/19 06/20/19 06/20/19 02:50 02:55 02:59 Temperature Heart Rate 124 H 125 H 129 H Heart Rate [ Monitoring electrodes] Respiratory 20 17 23 Rate Blood Pressure Blood Pressure [Right Brachial artery] O2 Saturation 06/20/19 06/20/19 06/20/19 03:00 03:01 03:05 Temperature Heart Rate 126 H 124 H 123 H Heart Rate [ 123 H Monitoring electrodes] Respiratory 26 H 19 21 Rate Blood Pressure 110/76 Blood Pressure 110/76 [Right Brachial artery] O2 Saturation 95 06/20/19 06/20/19 06/20/19 03:10 03:15 03:20 Temperature Heart Rate 121 H 122 H 124 H Heart Rate [ Monitoring electrodes] Respiratory 21 20 24 Rate Blood Pressure Blood Pressure [Right Brachial artery] O2 Saturation 06/20/19 06/20/19 06/20/19 03:25 03:30 03:35 Temperature Heart Rate 123 H 120 H 119 H Heart Rate [ Monitoring electrodes] Respiratory 26 H 32 H 26 H Rate Blood Pressure Blood Pressure [Right Brachial artery] O2 Saturation 06/20/19 06/20/19 06/20/19 03:40 03:45 03:50 Temperature Heart Rate 119 H 118 H 123 H Heart Rate [ Monitoring electrodes] Respiratory 20 38 H 15 Rate Blood Pressure Blood Pressure [Right Brachial artery] O2 Saturation 06/20/19 06/20/19 06/20/19 03:55 03:59 04:00 Temperature 37.9 C H Heart Rate 118 H 117 H 119 H Heart Rate [ 117 H Monitoring electrodes] Respiratory 19 18 30 H Rate Blood Pressure 92/63 Blood Pressure 92/63 [Right Brachial artery] O2 Saturation 99 06/20/19 06/20/19 06/20/19 04:01 04:05 04:10 Temperature Heart Rate 117 H 116 H 114 H Heart Rate [ Monitoring electrodes] Respiratory 29 H 28 H 25 H Rate Blood Pressure Blood Pressure [Right Brachial artery] O2 Saturation 06/20/19 06/20/19 06/20/19 04:15 04:20 04:25 Temperature Heart Rate 113 H 111 H 110 H Heart Rate [ Monitoring electrodes] Respiratory 18 28 H 30 H Rate Blood Pressure Blood Pressure [Right Brachial artery] O2 Saturation 06/20/19 06/20/19 06/20/19 04:30 04:35 04:40 Temperature Heart Rate 115 H 116 H 117 H Heart Rate [ Monitoring electrodes] Respiratory 19 18 18 Rate Blood Pressure Blood Pressure [Right Brachial artery] O2 Saturation 06/20/19 06/20/19 06/20/19 04:45 04:50 04:55 Temperature Heart Rate 115 H 112 H 112 H Heart Rate [ Monitoring electrodes] Respiratory 15 22 19 Rate Blood Pressure Blood Pressure [Right Brachial artery] O2 Saturation 06/20/19 06/20/19 06/20/19 04:59 05:00 05:01 Temperature Heart Rate 111 H 112 H 112 H Heart Rate [ 112 H Monitoring electrodes] Respiratory 10 L 18 19 Rate Blood Pressure 97/64 Blood Pressure 97/64 [Right Brachial artery] O2 Saturation 94 06/20/19 06/20/19 06/20/19 05:45 05:50 05:55 Temperature Heart Rate 107 H 106 H 109 H Heart Rate [ Monitoring electrodes] Respiratory 19 19 21 Rate Blood Pressure Blood Pressure [Right Brachial artery] O2 Saturation 06/20/19 06/20/19 06/20/19 05:59 06:00 06:01 Temperature Heart Rate 110 H 113 H 111 H Heart Rate [ 110 H Monitoring electrodes] Respiratory 22 23 18 Rate Blood Pressure 94/63 Blood Pressure 94/63 [Right Brachial artery] O2 Saturation 100 06/20/19 06/20/19 06/20/19 06:05 06:10 06:15 Temperature Heart Rate 112 H 115 H 112 H Heart Rate [ Monitoring electrodes] Respiratory 18 24 12 Rate Blood Pressure Blood Pressure [Right Brachial artery] O2 Saturation 06/20/19 06/20/19 06/20/19 06:20 06:25 06:30 Temperature Heart Rate 113 H 108 H 114 H Heart Rate [ Monitoring electrodes] Respiratory 18 19 18 Rate Blood Pressure Blood Pressure [Right Brachial artery] O2 Saturation 06/20/19 06/20/19 06/20/19 06:35 06:40 06:45 Temperature Heart Rate 111 H 109 H 115 H Heart Rate [ Monitoring electrodes] Respiratory 19 19 20 Rate Blood Pressure Blood Pressure [Right Brachial artery] O2 Saturation 06/20/19 06/20/19 06/20/19 06:50 06:55 06:59 Temperature Heart Rate 112 H 109 H 111 H Heart Rate [ Monitoring electrodes] Respiratory 19 18 20 Rate Blood Pressure Blood Pressure [Right Brachial artery] O2 Saturation 06/20/19 06/20/19 06/20/19 07:00 07:01 07:02 Temperature Heart Rate 110 H 111 H 112 H Heart Rate [ 112 H Monitoring electrodes] Respiratory 20 18 19 Rate Blood Pressure 77/49 L 87/59 L Blood Pressure 87/59 L [Right Brachial artery] O2 Saturation 100 06/20/19 06/20/19 06/20/19 07:05 07:10 07:15 Temperature Heart Rate 110 H 110 H 109 H Heart Rate [ Monitoring electrodes] Respiratory 20 20 20 Rate Blood Pressure Blood Pressure [Right Brachial artery] O2 Saturation 06/20/19 06/20/19 06/20/19 07:20 07:25 07:30 Temperature Heart Rate 110 H 115 H 118 H Heart Rate [ Monitoring electrodes] Respiratory 19 18 34 H Rate Blood Pressure Blood Pressure [Right Brachial artery] O2 Saturation 06/20/19 06/20/19 06/20/19 07:35 07:40 07:45 Temperature Heart Rate 114 H 115 H 113 H Heart Rate [ Monitoring electrodes] Respiratory 22 20 23 Rate Blood Pressure Blood Pressure [Right Brachial artery] O2 Saturation 06/20/19 06/20/19 06/20/19 07:50 07:55 07:59 Temperature Heart Rate 112 H 112 H 117 H Heart Rate [ Monitoring electrodes] Respiratory 24 20 19 Rate Blood Pressure Blood Pressure [Right Brachial artery] O2 Saturation 06/20/19 06/20/19 06/20/19 08:00 08:01 08:05 Temperature 37.2 C Heart Rate 114 H 115 H 116 H Heart Rate [ 115 H Monitoring electrodes] Respiratory 16 16 20 Rate Blood Pressure 102/74 Blood Pressure 102/74 [Right Brachial artery] O2 Saturation 06/20/19 06/20/19 06/20/19 08:10 08:15 08:20 Temperature Heart Rate 116 H 115 H 121 H Heart Rate [ Monitoring electrodes] Respiratory 21 21 21 Rate Blood Pressure Blood Pressure [Right Brachial artery] O2 Saturation 06/20/19 06/20/19 06/20/19 08:25 08:30 08:35 Temperature Heart Rate 116 H 117 H 115 H Heart Rate [ Monitoring electrodes] Respiratory 19 18 21 Rate Blood Pressure Blood Pressure [Right Brachial artery] O2 Saturation 06/20/19 06/20/19 06/20/19 08:40 08:45 08:50 Temperature Heart Rate 118 H 122 H 124 H Heart Rate [ Monitoring electrodes] Respiratory 20 22 21 Rate Blood Pressure Blood Pressure [Right Brachial artery] O2 Saturation 06/20/19 06/20/19 06/20/19 08:55 08:59 09:00 Temperature 37.4 C Heart Rate 124 H 116 H 117 H Heart Rate [ 117 H Monitoring electrodes] Respiratory 16 21 21 Rate Blood Pressure 96/72 Blood Pressure 96/72 [Right Brachial artery] O2 Saturation 100 06/20/19 06/20/19 06/20/19 09:01 09:05 10:00 Temperature 37.4 C Heart Rate 117 H 117 H Heart Rate [ 113 H Monitoring electrodes] Respiratory 20 20 17 Rate Blood Pressure Blood Pressure 92/65 [Right Brachial artery] O2 Saturation 100 06/20/19 06/20/19 06/20/19 10:44 10:59 11:00 Temperature 37.4 C 37.5 C 37.4 C Heart Rate 117 H 114 H Heart Rate [ 120 H Monitoring electrodes] Respiratory 19 14 16 Rate Blood Pressure 92/65 110/81 H Blood Pressure 110/81 H [Right Brachial artery] O2 Saturation 100 06/20/19 06/20/19 11:15 12:00 Temperature 37.4 C 37.4 C Heart Rate 118 H Heart Rate [ 118 H Monitoring electrodes] Respiratory Rate Blood Pressure 117/89 H Blood Pressure 114/85 H [Right Brachial artery] O2 Saturation 100 Oxygen O2 Source Room air I&O (Last 24 Hrs): Intake and Output Totals x24h 06/18/19 06/19/19 06/20/19 23:59 23:59 23:59 Intake Total 4744.151 6738.393 3450.833 Output Total 240 3784 670 Balance 4504.151 2954.393 2780.833 General: Other (In mild distress from pain then is somnolent aftyer Morphine.) HEENT: Other (Temporal wasring. Dry mucosa. Poor dental and oral hygiene.) Neuro: Non Focal Cardiovascular: Regular rate Respiratory: No respiratory distress Abdomen: Soft, Other (L colostomy bag, R peritoneal tube, more distended abdomen today, but not tender or rigid.) Extremities: No edema - Results Results: Laboratory Results WBC 5.9 x10^3/uL (4.8-10.8) 06/20/19 04:40 RBC 2.62 10^6/uL (4.20-5.40) L 06/20/19 04:40 Hgb 7.5 g/dL (12.0-16.0) L 06/20/19 04:40 Hct 24.1 % (37.0-47.0) L 06/20/19 04:40 MCV 92.0 fL (81.0-99.0) 06/20/19 04:40 MCH 28.6 pg (27.0-31.0) 06/20/19 04:40 MCHC 31.1 g/dL (32.0-36.0) L 06/20/19 04:40 RDW 19.9 % (12.0-15.0) H 06/20/19 04:40 Plt Count 32 10^3/uL (130-450) L* 06/20/19 04:40 MPV 10.8 fL (7.9-10.8) 06/20/19 04:40 Neut # (Auto) Not Reportable 06/20/19 04:40 Lymph # (Auto) Not Reportable 06/20/19 04:40 Brooks # (Auto) Not Reportable 06/20/19 04:40 Eos # (Auto) Not Reportable 06/20/19 04:40 Baso # (Auto) Not Reportable 06/20/19 04:40 Absolute Nucleated RBC Not Reportable 06/20/19 04:40 Total Counted 100 06/20/19 04:40 Band Neuts % (Manual) 3 % (0-10) 06/20/19 04:40 Abnorm Lymph % (Manual) 0 % 06/20/19 04:40 Nucleated RBC % Not Reportable 06/20/19 04:40 Neutrophils # (Manual) 5.4 10^3/uL (1.5-6.6) 06/20/19 04:40 Lymphocytes # (Manual) 0.5 10^3/uL (1.5-3.5) L 06/20/19 04:40 Monocytes # (Manual) 0.1 10^3/uL (0.0-1.0) 06/20/19 04:40 Eosinophils # (Manual) 0.0 10^3/uL (0-0.7) 06/20/19 04:40 Basophils # (Manual) 0.0 10^3/uL (0-0.1) 06/20/19 04:40 Differential Comment MANUAL DIFFERENTIAL 06/20/19 04:40 Manual Slide Review Indicated 06/18/19 18:09 WBC Morphology 2+ TOXIC GRANULATION (NORMAL) 06/18/19 18:09 Platelet Estimate DECREASED (<130,000) (NORMAL) 06/20/19 04:40 Platelet Morphology NORMAL APPEARANCE (NORMAL) 06/18/19 18:09 RBC Morph Micro Appear 1+ ANISOCYTOSIS (NORMAL) 1+ HYPOCHROMASIA (NORMAL) 1+ OVALOCYTES (NORMAL) 06/19/19 04:40 RBC Morph Micro Appear 1+ ANISOCYTOSIS (NORMAL) 1+ HYPOCHROMASIA (NORMAL) 1+ OVALOCYTES (NORMAL) 06/19/19 04:40 RBC Morph Micro Appear 1+ ANISOCYTOSIS (NORMAL) 1+ HYPOCHROMASIA (NORMAL) 1+ OVALOCYTES (NORMAL) 06/19/19 04:40 RBC Morph Micro Appear 1+ ANISOCYTOSIS (NORMAL) 1+ HYPOCHROMASIA (NORMAL) 1+ OVALOCYTES (NORMAL) 06/20/19 04:40 RBC Morph Micro Appear 1+ ANISOCYTOSIS (NORMAL) 1+ HYPOCHROMASIA (NORMAL) 1+ OVALOCYTES (NORMAL) 06/20/19 04:40 RBC Morph Micro Appear 1+ ANISOCYTOSIS (NORMAL) 1+ HYPOCHROMASIA (NORMAL) 1+ OVALOCYTES (NORMAL) 06/20/19 04:40 PT 20.7 secs (9.9-12.6) H 06/19/19 05:50 INR 1.9 (0.8-1.2) H 06/19/19 05:50 Fibrinogen 575 mg/dL (220-496) H 06/19/19 18:47 Bld Gas Analysis Time 0506/19/19 05:15 Sample Site RIGHT RADIAL 06/19/19 05:15 ABG pH 7.41 (7.35-7.45) 06/19/19 05:15 ABG pCO2 31 mmHg (34-45) L 06/19/19 05:15 ABG pO2 72 mmHg (80-100) L 06/19/19 05:15 ABG HCO3 18.9 mmol/L (22.0-26.0) L 06/19/19 05:15 ABG Total CO2 19.9 MMOL/L (21.0-29.0) L 06/19/19 05:15 ABG O2 Saturation 94 % (94-98) 06/19/19 05:15 ABG Base Excess -5.0 mmol/L (-2.0-3.0) L 06/19/19 05:15 Ramón Test POSITIVE 06/19/19 05:15 VBG pH 7.391 (7.31-7.41) 06/20/19 04:40 VBG pCO2 25.5 mmHg (41-51) L 06/18/19 18:46 VBG pO2 35.5 mmHg (25-47) 06/18/19 18:46 VBG HCO3 11.7 mmol/L (23-28) L 06/18/19 18:46 VBG Total CO2 12.5 mmol/L (24-29) L 06/18/19 18:46 VBG O2 Saturation 56.2 % (60-80) L 06/18/19 18:46 VBG Base Excess -13.5 mmol/L (-2 - +2) L 06/18/19 18:46 Ionized Calcium 1.05 mmol/L (1.15-1.33) L 06/20/19 04:40 O2 Delivery Device OXYMASK 06/19/19 05:15 O2 Liters/Min 4.00 LPM 06/19/19 05:15 FiO2 0.36 06/19/19 05:15 Sodium 140 mmol/L (135-145) 06/20/19 04:40 Potassium 3.1 mmol/L (3.5-5.0) L 06/20/19 04:40 Chloride 117 mmol/L (101-111) H 06/20/19 04:40 Carbon Dioxide 17 mmol/L (21-32) L 06/20/19 04:40 Anion Gap 6.0 (6-13) 06/20/19 04:40 BUN 37 mg/dL (6-20) H 06/20/19 04:40 Creatinine 0.6 mg/dL (0.4-1.0) 06/20/19 04:40 Estimated GFR (MDRD) 114 (>89) 06/20/19 04:40 Glucose 91 mg/dL (70-100) 06/20/19 04:40 POC Whole Bld Glucose 121 mg/dL (70 - 100) H 06/20/19 12:07 Glycated Hemoglobin 8.1 % (4.6-6.2) H 06/18/19 18:09 Estim Average Glucose 186 (70-100) H 06/18/19 18:09 Lactic Acid 2.0 mmol/L (0.5-2.2) 06/18/19 22:33 Calcium 7.0 mg/dL (8.5-10.3) L 06/20/19 04:40 Phosphorus 2.9 mg/dL (2.5-4.6) 06/20/19 04:40 Magnesium 1.8 mg/dL (1.7-2.8) 06/20/19 04:40 Total Bilirubin 2.4 mg/dL (0.2-1.0) H 06/20/19 04:40 Direct Bilirubin 1.3 mg/dL (0.1-0.5) H 06/20/19 04:40 AST 59 IU/L (10-42) H 06/20/19 04:40 ALT 16 IU/L (10-60) 06/20/19 04:40 Alkaline Phosphatase 803 IU/L (42-121) H 06/20/19 04:40 Total Creatine Kinase 105 IU/L (22-269) 06/18/19 18:09 Total Protein 4.5 g/dL (6.7-8.2) L 06/20/19 04:40 Albumin 1.1 g/dL (3.2-5.5) L 06/20/19 04:40 Globulin 3.4 g/dL (2.1-4.2) 06/20/19 04:40 Albumin/Globulin Ratio 0.3 (1.0-2.2) L 06/18/19 18:09 Lipase 15 U/L (22-51) L 06/18/19 18:09 TSH 2.50 uIU/mL (0.34-5.60) 06/18/19 18:09 Urine Color DARK YELLOW 06/18/19 19:30 Urine Clarity CLEAR (CLEAR) 06/18/19 19:30 Urine pH 5.0 PH (5.0-7.5) 06/18/19 19:30 Ur Specific [place] 1.025 (1.002-1.030) 06/18/19 19:30 Urine Protein TRACE mg/dL (NEGATIVE) 06/18/19 19:30 Urine Glucose (UA) 250 mg/dL (NEGATIVE) H 06/18/19 19:30 Urine Ketones TRACE mg/dL (NEGATIVE) 06/18/19 19:30 Urine Occult Blood NEGATIVE (NEGATIVE) 06/18/19 19:30 Urine Nitrite NEGATIVE (NEGATIVE) 06/18/19 19:30 Urine Bilirubin SMALL (NEGATIVE) H 06/18/19 19:30 Urine Ictotest Cancelled 06/18/19 18:16 Urine Urobilinogen 1 (NORMAL) E.U./dL (NORMAL) 06/18/19 19:30 Ur Leukocyte Esterase NEGATIVE (NEGATIVE) 06/18/19 19:30 Ur Microscopic Review NOT INDICATED 06/18/19 19:30 Urine Culture Comments NOT INDICATED 06/18/19 19:30 Fluid Source PERITONEAL 06/19/19 18:45 Fluid Color YELLOW 06/19/19 18:45 Fluid Clarity CLEAR 06/19/19 18:45 Fluid WBC 1827 /mm^3 06/19/19 18:45 Fluid RBC < 3000 /mm^3 06/19/19 18:45 Fluid Neutrophils % 97 % 06/19/19 18:45 Fluid Lymphocytes % 1 06/19/19 18:45 Fluid Monocytes % 1 % 06/19/19 18:45 Fld Mesothelial Cell % 1 % 06/19/19 18:45 Nasal Screen MRSA (PCR) NEGATIVE (NEGATIVE) 06/18/19 20:10 Last Dose Date 06/20/19 06/20/19 08:22 Last Dose Time 0206 06/20/19 08:22 Vancomycin Trough 38.8 ug/mL (10.0-20.0) H* 06/20/19 08:22 Salicylates < 6.0 mg/dL 06/18/19 18:09 Urine Opiates Screen NEGATIVE (NEGATIVE) 06/18/19 18:16 Ur Oxycodone Screen POSITIVE (NEGATIVE) H 06/18/19 18:16 Urine Methadone Screen NEGATIVE (NEGATIVE) 06/18/19 18:16 Ur Propoxyphene Screen NEGATIVE (NEGATIVE) 06/18/19 18:16 Acetaminophen < 10 ug/mL (10-30) L 06/18/19 18:09 Ur Barbiturates Screen NEGATIVE (NEGATIVE) 06/18/19 18:16 Ur Tricyclics Screen NEGATIVE (NEGATIVE) 06/18/19 18:16 Ur Phencyclidine Scrn NEGATIVE (NEGATIVE) 06/18/19 18:16 Ur Amphetamine Screen NEGATIVE (NEGATIVE) 06/18/19 18:16 U Methamphetamines Scrn NEGATIVE (NEGATIVE) 06/18/19 18:16 U Benzodiazepines Scrn NEGATIVE (NEGATIVE) 06/18/19 18:16 Urine Cocaine Screen NEGATIVE (NEGATIVE) 06/18/19 18:16 U Cannabinoids Screen NEGATIVE (NEGATIVE) 06/18/19 18:16 Ethyl Alcohol < 5.0 mg/dL 06/18/19 18:09 Serum Ketones NEGATIVE (NEGATIVE) 06/19/19 18:36 Blood Type A NEGATIVE 06/19/19 05:50 Antibody Screen NEGATIVE 06/19/19 05:50 Crossmatch IS Only See Detail 06/19/19 05:50 Sepsis Event Note (H) - Evaluation Current Stage of Sepsis: Sepsis Possible source of Sepsis: positive: Pulmonary - Sepsis Criteria Sepsis Criteria: Recorded Heart Rate greater than 90 bpm, Recorded Respiratory Rate greater than 20, Respiratory: Increasing oxygen requirements, WBC count greater than 12,000 or less than 4000, SBP drop more than 40mHg, MAP less than 65 mmHg, SBP less than 90 mmHg, Metabolic: lactate > 2 mmol/L, Hepatic: Bilirubin greater than 2mg/dl
[2019-06-20] MEDS: INSULIN ASPART 300 UNIT/3 ML PEN SUBQ SCH ×2 (16:42→21:21)
[2019-06-20 17:03] LABS: BASOPHILS % (AUTO) 0.3 %; EOSINOPHILS % (AUTO) 0.2 %; HGB - HEMOGLOBIN 8.6 g/dL (12.0-16.0); LYMPHOCYTES # (AUTO) 0.9 10^3/uL (1.5-3.5); LYMPHOCYTES % (AUTO) 15.5 %; MEAN CORPUSCULAR HEMOGLOBIN 28.9 pg (27.0-31.0); MEAN CORPUSCULAR HGB CONC 30.9 g/dL (32.0-36.0); MEAN CORPUSCULAR VOLUME 93.3 fL (81.0-99.0); MEAN PLATELET VOLUME 9.6 fL (7.9-10.8); MONOCYTES # (AUTO) 0.2 10^3/uL (0.0-1.0); MONOCYTES % (AUTO) 3.2 %; NEUTROPHILS # (AUTO) 4.7 10^3/uL (1.5-6.6); NEUTROPHILS % (AUTO) 79.8 %; PLT - PLATELET COUNT 36 10^3/uL (130-450); RED BLOOD COUNT 2.98 10^6/uL (4.20-5.40); RED CELL DISTRIBUTION WIDTH 19.9 % (12.0-15.0); WHITE BLOOD COUNT 5.9 x10^3/uL (4.8-10.8)
[2019-06-20] MEDS ORDERED: LORazepam 2 MG/ML VIAL IVP SCH (17:15)
[2019-06-20] MEDS ORDERED: IOVERSOL 320 100 ML VIAL IVP ONE ×2 (17:33→18:37)
[2019-06-20 17:57] LABS: DIFFERENTIAL COMMENT MANUAL=AUTO DIFF; PLATELET ESTIMATE, MANUAL DECREASED (<130,000) (NORMAL); PLATELET MORPHOLOGY NORMAL APPEARANCE (NORMAL)
--- NOTE | 2019-06-20 17:57 | CONSULTATION NOTE ---
Palliative Care Follow Up - Referral Referring Provider: April Bob Time of Visit: [id number]; [id number] Referral setting: Hospitalized patient Referral Reason: Met Colon Ca with liver mets/Goals of Care - Information Sources Records reviewed: Previous records reviewed Exam limitations: Clinical condition (patient able to only answer a few yes/no; moaning and distressed) - History of Present Illness Update Brief HPI Update: See HPI 6. This is a complicated 33-year-old woman who presented acutely with DKA, sepsis, and pneumonia. She continues to present with symptoms of distress, moaning, when asked she reports her abdomen is still hurting, points to lower abdomen. Her abdomen remains distended but softer than yesterday. Her mouth is dry, she is pushing away any attempt to provide care or reposition. The fan is on her, which is what she likes. Patients vitals, BS, and counts improving, but level of alertness and able to participate in conversation is altered. She does nod yes when asked is she understands she is in the hospital. She appears quite cachetic, pale, and weak. Social History - Living Situation Living arrangement: At home Living Situation: With spouse/s.o. Support System: was not available in AM, though we had agreed for update, spoke on the phone, and agreed to meet in afternoon. He continues quite distressed about how he would manage her in her weakened state and continued deterioration including needing to continue to work and manage the 3 children at home. Encouraged to reach out to social insurance analyst to at least start conversations regarding what would be cost some possibilities. Medications/Allergies - Medications Active Medication List: Active Medications Acetaminophen (Tylenol) 650 mg RI Q8HR PRN PRN Reason: Pain or Fever > 38C (100.4F) Last Admin: 06/20/19 02:34 Dose: 650 mg Fentanyl (Duragesic) 1 patch TOP Q72H [facility] Last Admin: 06/19/19 11:07 Dose: 1 patch Fentanyl (Duragesic) 1 patch TOP Q72H [facility] Last Admin: 06/19/19 11:08 Dose: 1 patch Cefepime HCl 2 gm/ Sodium (Chloride) 100 mls @ 200 mls/hr IV Q12H [facility] Last Infusion: 06/20/19 07:04 Dose: Infused Vancomycin HCl 1 gm/ Sodium (Chloride) 250 mls @ 167 mls/hr IV Q8H [facility] Last Infusion: 06/20/19 02:06 Dose: Infused Metronidazole (Flagyl 500 Mg/100 Ml) 500 mg in 100 mls @ 100 mls/hr IV Q8H [facility] Last Infusion: 06/20/19 12:10 Dose: Infused Potassium Chloride/Dextrose/Sod Cl () 1,000 mls @ 175 mls/hr IV .Q5H43M [facility] Last Admin: 06/20/19 15:15 Dose: 175 mls/hr Insulin Aspart (Novolog) 1 - 5 unit SUBQ 0800,1200,1700,2100 [facility]; Protocol Last Admin: 06/20/19 16:42 Dose: 2 unit Insulin Glargine (Lantus Solostar) 10 unit SUBQ QPM [facility] Lorazepam (Ativan Inj (Vial)) 0.5 mg IVP Q3H PRN PRN Reason: Restlessness Last Admin: 06/20/19 09:54 Dose: 0.5 mg Lorazepam (Ativan Inj (Vial)) 2 mg IVP ONCE [facility] Stop: 06/20/19 22:00 Mineral Oil (Cavilon) 1 applic TOP PRN PRN PRN Reason: Skin Care Last Admin: 06/19/19 21:15 Dose: 1 applic Morphine Sulfate (Morphine (Carpuject)) 2 mg IVP Q1HR PRN PRN Reason: PAIN Last Admin: 06/20/19 15:43 Dose: 2 mg Morphine Sulfate (Roxanol) 10 mg PO Q4HR PRN PRN Reason: PAIN Last Admin: 06/20/19 16:55 Dose: 10 mg Ondansetron HCl (Zofran Inj) 4 mg IVP Q6HR PRN PRN Reason: Nausea / Vomiting Pantoprazole Sodium (Protonix) 40 mg IVP QDAC [facility] Last Admin: 06/20/19 06:26 Dose: 40 mg Sodium Chloride (Normal Saline Flush 0.9%) 10 ml IVP 0100,0900,1700 [facility] Last Admin: 06/20/19 16:55 Dose: 10 ml Sodium Chloride (Normal Saline Flush 0.9%) 10 ml IVP PRN PRN PRN Reason: NEEDED PER PROVIDER ORDERS Last Admin: 06/20/19 09:00 Dose: 10 ml Insulin Glargine,Hum.rec.anlog [Lantus] 30 - 40 unit SQ QDBREAKFAST 02/13/16 Docusate Sodium 200 mg PO BID 06/27/18 Insulin Aspart [NovoLOG] 0 units SUBQ TID PRN MDD sliding scale 06/27/18 clonazePAM [Clonazepam] 0.5 mg PO TID PRN 06/27/18 Ondansetron [Zuplenz] 8 mg PO Q8HR PRN 11/02/18 Polyethylene Glycol 3350 [Miralax] 17 mg PO DAILY PRN 01/03/19 Prochlorperazine Maleate [Compazine] 10 mg PO Q6HR PRN 01/03/19 Potassium Chloride 20 meq PO BID 03/19/19 Insulin Glargine [Lantus Solostar] 20 units SQ QPM 03/21/19 Loperamide [Imodium] 2 mg PO PRN PRN MDD 8/tabs 04/25/19 Oxycodone HCl 10 mg PO Q3HR PRN MDD 8/24 hours 04/25/19 fentaNYL [Fentanyl 75mcg patch] 75 mcg TOP Q72H 04/25/19 - Allergies Allergies/Adverse Reactions: Allergies Allergy/AdvReac Type Severity Reaction Status Date / Time No Known Drug Allergies Allergy Verified 06/18/19 16:43 Review of Systems - Constitutional Constitutional: reports: Fatigue, Weight loss - Ears, Nose & Throat Ears, Nose & Throat: reports: Dry mouth - Gastrointestinal Gastrointestinal: reports: Abdominal pain, Abdominal distention, Other (co lostomy) - Genitourinary Genitourinary: reports: Other (catheter) - Musculoskeletal Musculoskeletal: reports: Muscle weakness, Other (currently bedbound) - Integumentary Integumentary: reports: Dryness - Neurological Neurological: reports: Slurred speech - Psychiatric Psychiatric: reports: Anxiety, Aggitation - Endocrine Endocrine: reports: Other (diabetes Type I) - Hematologic/Lymphatic Hematologic/Lymphatic: reports: Anemia, Recurrent infections (presenting with + blood cultures and pneumonia) - All Other Systems All Other Systems: reports: Other (limited ROS) Physical Exam - Vital Signs Vital Signs: Vital Signs x48h Temp Pulse Pulse Resp BP BP Pulse Ox 06/20/19 16:00 37.9 C H 137 H 19 90/69 97 06/20/19 15:00 37.7 C H 125 H 20 102/82 H 100 06/20/19 14:00 37.7 C H 118 H 18 108/85 H 99 06/20/19 13:00 37.6 C H 117 H 21 105/67 99 06/20/19 12:00 37.4 C 118 H 19 114/85 H 100 06/20/19 11:15 37.4 C 118 H 19 117/89 H 06/20/19 11:00 37.4 C 120 H 16 110/81 H 100 06/20/19 10:59 37.5 C 114 H 14 110/81 H 06/20/19 10:44 37.4 C 117 H 19 92/65 06/20/19 10:00 37.4 C 113 H 17 100 - Physical Exam General Appearance: positive: Severe distress, Anxious, Lethargic, Cachetic Eyes Bilateral: positive: Other (does focus some today; keeps eyes closed) ENT: positive: Dry mucous membranes Cardiovascular: positive: Tachycardia Abdomen: positive: Tenderness, Distended, Other (liquid stool in colostomy) Skin: positive: Pallor, Dryness, Other (sallow in colog) Extremities: positive: Other (wasting in extremities) Neurologic/Psychiatric: positive: Weakness, Flat affect Palliative Care - POLST Patient has POLST: No Pain: Pain worsening, Location (abdominal; moaning and restless) Performance Status: Patient currently bedbound, has been having functional decline, spending most of time in bed. Had been able to make it to clinic appointment last week, and was up some over the weekend. - Palliative Care Discussion: Family meeting with Ramón. Patient is quite complex with high anxiety, and significant emotional distress over her cancer and cancer treatment. In meeting with Ramón, in the context of goals of care. Patient is somewhat more alert, though certainly does not present with decision-making capacity nor with ability to participate in conversation regarding goals of care. Patient does seem aware she is in the hospital, but is in significant amount of pain and distress, with frequent moaning. She is pushing most everybody away. Patient is not been willing to talk about much regarding advanced care planning, she is aware of the seriousness of her illness and that she will of her cancer. She did actually sabotage and not show up for her staging CT scans planned for this last week to be able to determine given her recurrent ascites and cachexia if still appropriate to move forward with treatment. Ramón is quite overwhelmed, even if patient does recover enough to leave hospital, he is unable to provide 24-hour support in the home, he does have to work to be able to support his family and care for the children. Samantha often does not allow any kind of oversight or assistance, and pushes him and other family members who have tried to be of assistance away. Given her frailty, and ongoing decline, does not see how she should be left alone but does not see how he could afford care. He does not want to take care of her at home for hospice, given the above, we did discuss though if patient has more of a slow decline, can have home hospice and transition at end-of-life to another setting for her end-of-life event. There has been discussion regarding her CODE STATUS, he does not want her to suffer, if she were to code he would not want an attempt to "bring her back", but is wary of making these decisions if she were to continue to improve and present with decision making capacity. Will leave her FULL CODE for now, but would change it if she were declining more. He feels she will insist on going home, but will continue to refuse support and care. He has reached out to family members, there is no one available to help him except an Uncle short term. He does understand patient will continue to decline, and if chemotherapy not of benefit, particularly in her declining state, can hasten when weighing benefits and burdens. Will meet tomorrow for family meeting at [phone], introduced [facility] to better clarify and define goals for team. Results - Lab Results Lab results reviewed: Yes Fish Bones: 06/20/19 16:58 06/20/19 04:40 Lab and Imaging Results: Lab Results x24hrs 06/20/19 06/20/19 06/20/19 Range/Units 16:58 16:35 12:07 WBC 5.9 (4.8-10.8) x10^3/uL RBC 2.98 L (4.20-5.40) 10^6/uL Hgb 8.6 L (12.0-16.0) g/dL Hct 27.8 L (37.0-47.0) % MCV 93.3 (81.0-99.0) fL MCH 28.9 (27.0-31.0) pg MCHC 30.9 L (32.0-36.0) g/dL RDW 19.9 H (12.0-15.0) % Plt Count 36 L (130-450) 10^3/uL MPV 9.6 (7.9-10.8) fL Neut # (Auto) Lymph # (Auto) [place] # (Auto) Eos # (Auto) Baso # (Auto) Absolute Nucleated RBC Total Counted Band Neuts % (Manual) (0 - 10) % Abnorm Lymph % (Manual) % Nucleated RBC % Neutrophils # (Manual) (1.5-6.6) 10^3/uL Lymphocytes # (Manual) (1.5-3.5) 10^3/uL Monocytes # (Manual) (0.0-1.0) 10^3/uL Eosinophils # (Manual) (0-0.7) 10^3/uL Basophils # (Manual) (0-0.1) 10^3/uL Differential Comment Manual Slide Review Indicated Platelet Estimate (NORMAL) RBC Morph Micro Appear (NORMAL) Fibrinogen (220-496) mg/dL VBG pH (7.31-7.41) Ionized Calcium (1.15-1.33) mmol/L Sodium (135-145) mmol/L Potassium (3.5-5.0) mmol/L Chloride (101-111) mmol/L Carbon Dioxide (21-32) mmol/L Anion Gap (6-13) BUN (6-20) mg/dL Creatinine (0.4-1.0) mg/dL Estimated GFR (MDRD) (>89) Glucose (70-100) mg/dL POC Whole Bld Glucose 211 H 121 H (70 - 100) mg/dL Calcium (8.5-10.3) mg/dL Phosphorus (2.5-4.6) mg/dL Magnesium (1.7-2.8) mg/dL Total Bilirubin (0.2-1.0) mg/dL Direct Bilirubin (0.1-0.5) mg/dL AST (10-42) IU/L ALT (10-60) IU/L Alkaline Phosphatase (42-121) IU/L Total Protein (6.7-8.2) g/dL Albumin (3.2-5.5) g/dL Globulin (2.1-4.2) g/dL Fluid Source Fluid Color Fluid Clarity Fluid WBC /mm^3 Fluid RBC /mm^3 Fluid Neutrophils % % Fluid Lymphocytes % Fluid Monocytes % % Fld Mesothelial Cell % % Last Dose Date Last Dose Time Vancomycin Trough (10.0-20.0) ug/mL Serum Ketones (NEGATIVE) Blood Type 06/20/19 06/20/19 06/20/19 Range/Units 10:11 08:22 08:22 WBC (4.8-10.8) x10^3/uL RBC (4.20-5.40) 10^6/uL Hgb (12.0-16.0) g/dL Hct (37.0-47.0) % MCV (81.0-99.0) fL MCH (27.0-31.0) pg MCHC (32.0-36.0) g/dL RDW (12.0-15.0) % Plt Count (130-450) 10^3/uL MPV (7.9-10.8) fL Neut # (Auto) Lymph # (Auto) [place] # (Auto) Eos # (Auto) Baso # (Auto) Absolute Nucleated RBC Total Counted Band Neuts % (Manual) (0 - 10) % Abnorm Lymph % (Manual) % Nucleated RBC % Neutrophils # (Manual) (1.5-6.6) 10^3/uL Lymphocytes # (Manual) (1.5-3.5) 10^3/uL Monocytes # (Manual) (0.0-1.0) 10^3/uL Eosinophils # (Manual) (0-0.7) 10^3/uL Basophils # (Manual) (0-0.1) 10^3/uL Differential Comment Manual Slide Review Platelet Estimate (NORMAL) RBC Morph Micro Appear (NORMAL) Fibrinogen (220-496) mg/dL VBG pH (7.31-7.41) Ionized Calcium (1.15-1.33) mmol/L Sodium (135-145) mmol/L Potassium (3.5-5.0) mmol/L Chloride (101-111) mmol/L Carbon Dioxide (21-32) mmol/L Anion Gap (6-13) BUN (6-20) mg/dL Creatinine (0.4-1.0) mg/dL Estimated GFR (MDRD) (>89) Glucose (70-100) mg/dL POC Whole Bld Glucose 111 H 103 H (70 - 100) mg/dL Calcium (8.5-10.3) mg/dL Phosphorus (2.5-4.6) mg/dL Magnesium (1.7-2.8) mg/dL Total Bilirubin (0.2-1.0) mg/dL Direct Bilirubin (0.1-0.5) mg/dL AST (10-42) IU/L ALT (10-60) IU/L Alkaline Phosphatase (42-121) IU/L Total Protein (6.7-8.2) g/dL Albumin (3.2-5.5) g/dL Globulin (2.1-4.2) g/dL Fluid Source Fluid Color Fluid Clarity Fluid WBC /mm^3 Fluid RBC /mm^3 Fluid Neutrophils % % Fluid Lymphocytes % Fluid Monocytes % % Fld Mesothelial Cell % % Last Dose Date 06/20/19 Last Dose Time 0206 Vancomycin Trough 38.8 H* (10.0-20.0) ug/mL Serum Ketones (NEGATIVE) Blood Type 06/20/19 06/20/19 06/20/19 Range/Units 06:13 04:40 04:40 WBC (4.8-10.8) x10^3/uL RBC (4.20-5.40) 10^6/uL Hgb (12.0-16.0) g/dL Hct (37.0-47.0) % MCV (81.0-99.0) fL MCH (27.0-31.0) pg MCHC (32.0-36.0) g/dL RDW (12.0-15.0) % Plt Count (130-450) 10^3/uL MPV (7.9-10.8) fL Neut # (Auto) Lymph # (Auto) [place] # (Auto) Eos # (Auto) Baso # (Auto) Absolute Nucleated RBC Total Counted Band Neuts % (Manual) (0 - 10) % Abnorm Lymph % (Manual) % Nucleated RBC % Neutrophils # (Manual) (1.5-6.6) 10^3/uL Lymphocytes # (Manual) (1.5-3.5) 10^3/uL Monocytes # (Manual) (0.0-1.0) 10^3/uL Eosinophils # (Manual) (0-0.7) 10^3/uL Basophils # (Manual) (0-0.1) 10^3/uL Differential Comment Manual Slide Review Platelet Estimate (NORMAL) RBC Morph Micro Appear (NORMAL) Fibrinogen (220-496) mg/dL VBG pH 7.391 (7.31-7.41) Ionized Calcium 1.05 L (1.15-1.33) mmol/L Sodium (135-145) mmol/L Potassium (3.5-5.0) mmol/L Chloride (101-111) mmol/L Carbon Dioxide (21-32) mmol/L Anion Gap (6-13) BUN (6-20) mg/dL Creatinine (0.4-1.0) mg/dL Estimated GFR (MDRD) (>89) Glucose (70-100) mg/dL POC Whole Bld Glucose 100 (70 - 100) mg/dL Calcium (8.5-10.3) mg/dL Phosphorus (2.5-4.6) mg/dL Magnesium (1.7-2.8) mg/dL Total Bilirubin 2.4 H (0.2-1.0) mg/dL Direct Bilirubin 1.3 H (0.1-0.5) mg/dL AST 59 H (10-42) IU/L ALT 16 (10-60) IU/L Alkaline Phosphatase 803 H (42-121) IU/L Total Protein 4.5 L (6.7-8.2) g/dL Albumin 1.1 L (3.2-5.5) g/dL Globulin 3.4 (2.1-4.2) g/dL Fluid Source Fluid Color Fluid Clarity Fluid WBC /mm^3 Fluid RBC /mm^3 Fluid Neutrophils % % Fluid Lymphocytes % Fluid Monocytes % % Fld Mesothelial Cell % % Last Dose Date Last Dose Time Vancomycin Trough (10.0-20.0) ug/mL Serum Ketones (NEGATIVE) Blood Type 06/20/19 06/20/19 06/20/19 Range/Units 04:40 04:40 03:53 WBC 5.9 (4.8-10.8) x10^3/uL RBC 2.62 L (4.20-5.40) 10^6/uL Hgb 7.5 L (12.0-16.0) g/dL Hct 24.1 L (37.0-47.0) % MCV 92.0 (81.0-99.0) fL MCH 28.6 (27.0-31.0) pg MCHC 31.1 L (32.0-36.0) g/dL RDW 19.9 H (12.0-15.0) % Plt Count 32 L* (130-450) 10^3/uL MPV 10.8 (7.9-10.8) fL Neut # (Auto) Not Reportable Lymph # (Auto) Not Reportable [place] # (Auto) Not Reportable Eos # (Auto) Not Reportable Baso # (Auto) Not Reportable Absolute Nucleated RBC Not Reportable Total Counted 100 Band Neuts % (Manual) 3 (0 - 10) % Abnorm Lymph % (Manual) 0 % Nucleated RBC % Not Reportable Neutrophils # (Manual) 5.4 (1.5-6.6) 10^3/uL Lymphocytes # (Manual) 0.5 L (1.5-3.5) 10^3/uL Monocytes # (Manual) 0.1 (0.0-1.0) 10^3/uL Eosinophils # (Manual) 0.0 (0-0.7) 10^3/uL Basophils # (Manual) 0.0 (0-0.1) 10^3/uL Differential Comment MANUAL DIFFERENTIAL Manual Slide Review Platelet Estimate DECREASED (<130,000) (NORMAL) RBC Morph Micro Appear 1+ OVALOCYTES (NORMAL) Fibrinogen (220-496) mg/dL VBG pH (7.31-7.41) Ionized Calcium (1.15-1.33) mmol/L Sodium 140 (135-145) mmol/L Potassium 3.1 L (3.5-5.0) mmol/L Chloride 117 H (101-111) mmol/L Carbon Dioxide 17 L (21-32) mmol/L Anion Gap 6.0 (6-13) BUN 37 H (6-20) mg/dL Creatinine 0.6 (0.4-1.0) mg/dL Estimated GFR (MDRD) 114 (>89) Glucose 91 (70-100) mg/dL POC Whole Bld Glucose 91 (70 - 100) mg/dL Calcium 7.0 L (8.5-10.3) mg/dL Phosphorus 2.9 (2.5-4.6) mg/dL Magnesium 1.8 (1.7-2.8) mg/dL Total Bilirubin (0.2-1.0) mg/dL Direct Bilirubin (0.1-0.5) mg/dL AST (10-42) IU/L ALT (10-60) IU/L Alkaline Phosphatase (42-121) IU/L Total Protein (6.7-8.2) g/dL Albumin (3.2-5.5) g/dL Globulin (2.1-4.2) g/dL Fluid Source Fluid Color Fluid Clarity Fluid WBC /mm^3 Fluid RBC /mm^3 Fluid Neutrophils % % Fluid Lymphocytes % Fluid Monocytes % % Fld Mesothelial Cell % % Last Dose Date Last Dose Time Vancomycin Trough (10.0-20.0) ug/mL Serum Ketones (NEGATIVE) Blood Type 06/20/19 06/20/19 06/20/19 Range/Units 02:16 00:10 00:05 WBC 7.3 (4.8-10.8) x10^3/uL RBC 2.94 L (4.20-5.40) 10^6/uL Hgb 8.5 L (12.0-16.0) g/dL Hct 26.9 L (37.0-47.0) % MCV 91.5 (81.0-99.0) fL MCH 28.9 (27.0-31.0) pg MCHC 31.6 L (32.0-36.0) g/dL RDW 19.9 H (12.0-15.0) % Plt Count 40 L (130-450) 10^3/uL MPV 10.7 (7.9-10.8) fL Neut # (Auto) Lymph # (Auto) [place] # (Auto) Eos # (Auto) Baso # (Auto) Absolute Nucleated RBC Total Counted Band Neuts % (Manual) (0 - 10) % Abnorm Lymph % (Manual) % Nucleated RBC % Neutrophils # (Manual) (1.5-6.6) 10^3/uL Lymphocytes # (Manual) (1.5-3.5) 10^3/uL Monocytes # (Manual) (0.0-1.0) 10^3/uL Eosinophils # (Manual) (0-0.7) 10^3/uL Basophils # (Manual) (0-0.1) 10^3/uL Differential Comment Manual Slide Review Platelet Estimate (NORMAL) RBC Morph Micro Appear (NORMAL) Fibrinogen (220-496) mg/dL VBG pH (7.31-7.41) Ionized Calcium (1.15-1.33) mmol/L Sodium (135-145) mmol/L Potassium (3.5-5.0) mmol/L Chloride (101-111) mmol/L Carbon Dioxide (21-32) mmol/L Anion Gap (6-13) BUN (6-20) mg/dL Creatinine (0.4-1.0) mg/dL Estimated GFR (MDRD) (>89) Glucose (70-100) mg/dL POC Whole Bld Glucose 100 128 H (70 - 100) mg/dL Calcium (8.5-10.3) mg/dL Phosphorus (2.5-4.6) mg/dL Magnesium (1.7-2.8) mg/dL Total Bilirubin (0.2-1.0) mg/dL Direct Bilirubin (0.1-0.5) mg/dL AST (10-42) IU/L ALT (10-60) IU/L Alkaline Phosphatase (42-121) IU/L Total Protein (6.7-8.2) g/dL Albumin (3.2-5.5) g/dL Globulin (2.1-4.2) g/dL Fluid Source Fluid Color Fluid Clarity Fluid WBC /mm^3 Fluid RBC /mm^3 Fluid Neutrophils % % Fluid Lymphocytes % Fluid Monocytes % % Fld Mesothelial Cell % % Last Dose Date Last Dose Time Vancomycin Trough (10.0-20.0) ug/mL Serum Ketones (NEGATIVE) Blood Type 06/19/19 06/19/19 06/19/19 Range/Units 22:01 20:11 18:47 WBC (4.8-10.8) x10^3/uL RBC (4.20-5.40) 10^6/uL Hgb (12.0-16.0) g/dL Hct (37.0-47.0) % MCV (81.0-99.0) fL MCH (27.0-31.0) pg MCHC (32.0-36.0) g/dL RDW (12.0-15.0) % Plt Count (130-450) 10^3/uL MPV (7.9-10.8) fL Neut # (Auto) Lymph # (Auto) [place] # (Auto) Eos # (Auto) Baso # (Auto) Absolute Nucleated RBC Total Counted Band Neuts % (Manual) (0 - 10) % Abnorm Lymph % (Manual) % Nucleated RBC % Neutrophils # (Manual) (1.5-6.6) 10^3/uL Lymphocytes # (Manual) (1.5-3.5) 10^3/uL Monocytes # (Manual) (0.0-1.0) 10^3/uL Eosinophils # (Manual) (0-0.7) 10^3/uL Basophils # (Manual) (0-0.1) 10^3/uL Differential Comment Manual Slide Review Platelet Estimate (NORMAL) RBC Morph Micro Appear (NORMAL) Fibrinogen 575 H (220-496) mg/dL VBG pH (7.31-7.41) Ionized Calcium (1.15-1.33) mmol/L Sodium (135-145) mmol/L Potassium (3.5-5.0) mmol/L Chloride (101-111) mmol/L Carbon Dioxide (21-32) mmol/L Anion Gap (6-13) BUN (6-20) mg/dL Creatinine (0.4-1.0) mg/dL Estimated GFR (MDRD) (>89) Glucose (70-100) mg/dL POC Whole Bld Glucose 153 H 149 H (70 - 100) mg/dL Calcium (8.5-10.3) mg/dL Phosphorus (2.5-4.6) mg/dL Magnesium (1.7-2.8) mg/dL Total Bilirubin (0.2-1.0) mg/dL Direct Bilirubin (0.1-0.5) mg/dL AST (10-42) IU/L ALT (10-60) IU/L Alkaline Phosphatase (42-121) IU/L Total Protein (6.7-8.2) g/dL Albumin (3.2-5.5) g/dL Globulin (2.1-4.2) g/dL Fluid Source Fluid Color Fluid Clarity Fluid WBC /mm^3 Fluid RBC /mm^3 Fluid Neutrophils % % Fluid Lymphocytes % Fluid Monocytes % % Fld Mesothelial Cell % % Last Dose Date Last Dose Time Vancomycin Trough (10.0-20.0) ug/mL Serum Ketones (NEGATIVE) Blood Type 06/19/19 06/19/19 06/19/19 Range/Units 18:46 18:45 18:36 WBC (4.8-10.8) x10^3/uL RBC (4.20-5.40) 10^6/uL Hgb 8.7 L (12.0-16.0) g/dL Hct 28.9 L (37.0-47.0) % MCV (81.0-99.0) fL MCH (27.0-31.0) pg MCHC (32.0-36.0) g/dL RDW (12.0-15.0) % Plt Count 50 L (130-450) 10^3/uL MPV (7.9-10.8) fL Neut # (Auto) Lymph # (Auto) [place] # (Auto) Eos # (Auto) Baso # (Auto) Absolute Nucleated RBC Total Counted Band Neuts % (Manual) (0 - 10) % Abnorm Lymph % (Manual) % Nucleated RBC % Neutrophils # (Manual) (1.5-6.6) 10^3/uL Lymphocytes # (Manual) (1.5-3.5) 10^3/uL Monocytes # (Manual) (0.0-1.0) 10^3/uL Eosinophils # (Manual) (0-0.7) 10^3/uL Basophils # (Manual) (0-0.1) 10^3/uL Differential Comment Manual Slide Review Platelet Estimate (NORMAL) RBC Morph Micro Appear (NORMAL) Fibrinogen (220-496) mg/dL VBG pH (7.31-7.41) Ionized Calcium (1.15-1.33) mmol/L Sodium (135-145) mmol/L Potassium (3.5-5.0) mmol/L Chloride (101-111) mmol/L Carbon Dioxide (21-32) mmol/L Anion Gap (6-13) BUN (6-20) mg/dL Creatinine (0.4-1.0) mg/dL Estimated GFR (MDRD) (>89) Glucose (70-100) mg/dL POC Whole Bld Glucose (70 - 100) mg/dL Calcium (8.5-10.3) mg/dL Phosphorus (2.5-4.6) mg/dL Magnesium (1.7-2.8) mg/dL Total Bilirubin (0.2-1.0) mg/dL Direct Bilirubin (0.1-0.5) mg/dL AST (10-42) IU/L ALT (10-60) IU/L Alkaline Phosphatase (42-121) IU/L Total Protein (6.7-8.2) g/dL Albumin (3.2-5.5) g/dL Globulin (2.1-4.2) g/dL Fluid Source PERITONEAL Fluid Color YELLOW Fluid Clarity CLEAR Fluid WBC 1827 /mm^3 Fluid RBC < 3000 /mm^3 Fluid Neutrophils % 97 % Fluid Lymphocytes % 1 Fluid Monocytes % 1 % Fld Mesothelial Cell % 1 % Last Dose Date Last Dose Time Vancomycin Trough (10.0-20.0) ug/mL Serum Ketones (NEGATIVE) Blood Type 06/19/19 06/19/19 06/19/19 Range/Units 18:36 18:08 16:01 WBC (4.8-10.8) x10^3/uL RBC (4.20-5.40) 10^6/uL Hgb (12.0-16.0) g/dL Hct (37.0-47.0) % MCV (81.0-99.0) fL MCH (27.0-31.0) pg MCHC (32.0-36.0) g/dL RDW (12.0-15.0) % Plt Count (130-450) 10^3/uL MPV (7.9-10.8) fL Neut # (Auto) Lymph # (Auto) [place] # (Auto) Eos # (Auto) Baso # (Auto) Absolute Nucleated RBC Total Counted Band Neuts % (Manual) (0 - 10) % Abnorm Lymph % (Manual) % Nucleated RBC % Neutrophils # (Manual) (1.5-6.6) 10^3/uL Lymphocytes # (Manual) (1.5-3.5) 10^3/uL Monocytes # (Manual) (0.0-1.0) 10^3/uL Eosinophils # (Manual) (0-0.7) 10^3/uL Basophils # (Manual) (0-0.1) 10^3/uL Differential Comment Manual Slide Review Platelet Estimate (NORMAL) RBC Morph Micro Appear (NORMAL) Fibrinogen (220-496) mg/dL VBG pH (7.31-7.41) Ionized Calcium (1.15-1.33) mmol/L Sodium (135-145) mmol/L Potassium (3.5-5.0) mmol/L Chloride (101-111) mmol/L Carbon Dioxide (21-32) mmol/L Anion Gap (6-13) BUN (6-20) mg/dL Creatinine (0.4-1.0) mg/dL Estimated GFR (MDRD) (>89) Glucose (70-100) mg/dL POC Whole Bld Glucose 149 H 164 H (70 - 100) mg/dL Calcium (8.5-10.3) mg/dL Phosphorus (2.5-4.6) mg/dL Magnesium (1.7-2.8) mg/dL Total Bilirubin (0.2-1.0) mg/dL Direct Bilirubin (0.1-0.5) mg/dL AST (10-42) IU/L ALT (10-60) IU/L Alkaline Phosphatase (42-121) IU/L Total Protein (6.7-8.2) g/dL Albumin (3.2-5.5) g/dL Globulin (2.1-4.2) g/dL Fluid Source Fluid Color Fluid Clarity Fluid WBC /mm^3 Fluid RBC /mm^3 Fluid Neutrophils % % Fluid Lymphocytes % Fluid Monocytes % % Fld Mesothelial Cell % % Last Dose Date Last Dose Time Vancomycin Trough (10.0-20.0) ug/mL Serum Ketones NEGATIVE (NEGATIVE) Blood Type 06/19/19 06/19/19 06/19/19 Range/Units 14:14 13:07 12:05 WBC (4.8-10.8) x10^3/uL RBC (4.20-5.40) 10^6/uL Hgb (12.0-16.0) g/dL Hct (37.0-47.0) % MCV (81.0-99.0) fL MCH (27.0-31.0) pg MCHC (32.0-36.0) g/dL RDW (12.0-15.0) % Plt Count (130-450) 10^3/uL MPV (7.9-10.8) fL Neut # (Auto) Lymph # (Auto) [place] # (Auto) Eos # (Auto) Baso # (Auto) Absolute Nucleated RBC Total Counted Band Neuts % (Manual) (0 - 10) % Abnorm Lymph % (Manual) % Nucleated RBC % Neutrophils # (Manual) (1.5-6.6) 10^3/uL Lymphocytes # (Manual) (1.5-3.5) 10^3/uL Monocytes # (Manual) (0.0-1.0) 10^3/uL Eosinophils # (Manual) (0-0.7) 10^3/uL Basophils # (Manual) (0-0.1) 10^3/uL Differential Comment Manual Slide Review Platelet Estimate (NORMAL) RBC Morph Micro Appear (NORMAL) Fibrinogen (220-496) mg/dL VBG pH (7.31-7.41) Ionized Calcium (1.15-1.33) mmol/L Sodium (135-145) mmol/L Potassium (3.5-5.0) mmol/L Chloride (101-111) mmol/L Carbon Dioxide (21-32) mmol/L Anion Gap (6-13) BUN (6-20) mg/dL Creatinine (0.4-1.0) mg/dL Estimated GFR (MDRD) (>89) Glucose (70-100) mg/dL POC Whole Bld Glucose 171 H 157 H 174 H (70 - 100) mg/dL Calcium (8.5-10.3) mg/dL Phosphorus (2.5-4.6) mg/dL Magnesium (1.7-2.8) mg/dL Total Bilirubin (0.2-1.0) mg/dL Direct Bilirubin (0.1-0.5) mg/dL AST (10-42) IU/L ALT (10-60) IU/L Alkaline Phosphatase (42-121) IU/L Total Protein (6.7-8.2) g/dL Albumin (3.2-5.5) g/dL Globulin (2.1-4.2) g/dL Fluid Source Fluid Color Fluid Clarity Fluid WBC /mm^3 Fluid RBC /mm^3 Fluid Neutrophils % % Fluid Lymphocytes % Fluid Monocytes % % Fld Mesothelial Cell % % Last Dose Date Last Dose Time Vancomycin Trough (10.0-20.0) ug/mL Serum Ketones (NEGATIVE) Blood Type 06/19/19 06/19/19 06/19/19 Range/Units 11:23 10:16 09:02 WBC (4.8-10.8) x10^3/uL RBC (4.20-5.40) 10^6/uL Hgb (12.0-16.0) g/dL Hct (37.0-47.0) % MCV (81.0-99.0) fL MCH (27.0-31.0) pg MCHC (32.0-36.0) g/dL RDW (12.0-15.0) % Plt Count (130-450) 10^3/uL MPV (7.9-10.8) fL Neut # (Auto) Lymph # (Auto) [place] # (Auto) Eos # (Auto) Baso # (Auto) Absolute Nucleated RBC Total Counted Band Neuts % (Manual) (0 - 10) % Abnorm Lymph % (Manual) % Nucleated RBC % Neutrophils # (Manual) (1.5-6.6) 10^3/uL Lymphocytes # (Manual) (1.5-3.5) 10^3/uL Monocytes # (Manual) (0.0-1.0) 10^3/uL Eosinophils # (Manual) (0-0.7) 10^3/uL Basophils # (Manual) (0-0.1) 10^3/uL Differential Comment Manual Slide Review Platelet Estimate (NORMAL) RBC Morph Micro Appear (NORMAL) Fibrinogen (220-496) mg/dL VBG pH (7.31-7.41) Ionized Calcium (1.15-1.33) mmol/L Sodium (135-145) mmol/L Potassium (3.5-5.0) mmol/L Chloride (101-111) mmol/L Carbon Dioxide (21-32) mmol/L Anion Gap (6-13) BUN (6-20) mg/dL Creatinine (0.4-1.0) mg/dL Estimated GFR (MDRD) (>89) Glucose (70-100) mg/dL POC Whole Bld Glucose 188 H 166 H 146 H (70 - 100) mg/dL Calcium (8.5-10.3) mg/dL Phosphorus (2.5-4.6) mg/dL Magnesium (1.7-2.8) mg/dL Total Bilirubin (0.2-1.0) mg/dL Direct Bilirubin (0.1-0.5) mg/dL AST (10-42) IU/L ALT (10-60) IU/L Alkaline Phosphatase (42-121) IU/L Total Protein (6.7-8.2) g/dL Albumin (3.2-5.5) g/dL Globulin (2.1-4.2) g/dL Fluid Source Fluid Color Fluid Clarity Fluid WBC /mm^3 Fluid RBC /mm^3 Fluid Neutrophils % % Fluid Lymphocytes % Fluid Monocytes % % Fld Mesothelial Cell % % Last Dose Date Last Dose Time Vancomycin Trough (10.0-20.0) ug/mL Serum Ketones (NEGATIVE) Blood Type 06/19/19 06/19/19 06/19/19 Range/Units 07:58 07:03 06:13 WBC (4.8-10.8) x10^3/uL RBC (4.20-5.40) 10^6/uL Hgb (12.0-16.0) g/dL Hct (37.0-47.0) % MCV (81.0-99.0) fL MCH (27.0-31.0) pg MCHC (32.0-36.0) g/dL RDW (12.0-15.0) % Plt Count (130-450) 10^3/uL MPV (7.9-10.8) fL Neut # (Auto) Lymph # (Auto) [place] # (Auto) Eos # (Auto) Baso # (Auto) Absolute Nucleated RBC Total Counted Band Neuts % (Manual) (0 - 10) % Abnorm Lymph % (Manual) % Nucleated RBC % Neutrophils # (Manual) (1.5-6.6) 10^3/uL Lymphocytes # (Manual) (1.5-3.5) 10^3/uL Monocytes # (Manual) (0.0-1.0) 10^3/uL Eosinophils # (Manual) (0-0.7) 10^3/uL Basophils # (Manual) (0-0.1) 10^3/uL Differential Comment Manual Slide Review Platelet Estimate (NORMAL) RBC Morph Micro Appear (NORMAL) Fibrinogen (220-496) mg/dL VBG pH (7.31-7.41) Ionized Calcium (1.15-1.33) mmol/L Sodium (135-145) mmol/L Potassium (3.5-5.0) mmol/L Chloride (101-111) mmol/L Carbon Dioxide (21-32) mmol/L Anion Gap (6-13) BUN (6-20) mg/dL Creatinine (0.4-1.0) mg/dL Estimated GFR (MDRD) (>89) Glucose (70-100) mg/dL POC Whole Bld Glucose 138 H 134 H 155 H (70 - 100) mg/dL Calcium (8.5-10.3) mg/dL Phosphorus (2.5-4.6) mg/dL Magnesium (1.7-2.8) mg/dL Total Bilirubin (0.2-1.0) mg/dL Direct Bilirubin (0.1-0.5) mg/dL AST (10-42) IU/L ALT (10-60) IU/L Alkaline Phosphatase (42-121) IU/L Total Protein (6.7-8.2) g/dL Albumin (3.2-5.5) g/dL Globulin (2.1-4.2) g/dL Fluid Source Fluid Color Fluid Clarity Fluid WBC /mm^3 Fluid RBC /mm^3 Fluid Neutrophils % % Fluid Lymphocytes % Fluid Monocytes % % Fld Mesothelial Cell % % Last Dose Date Last Dose Time Vancomycin Trough (10.0-20.0) ug/mL Serum Ketones (NEGATIVE) Blood Type 06/19/19 06/19/19 06/19/19 Range/Units 05:50 05:16 04:11 WBC (4.8-10.8) x10^3/uL RBC (4.20-5.40) 10^6/uL Hgb (12.0-16.0) g/dL Hct (37.0-47.0) % MCV (81.0-99.0) fL MCH (27.0-31.0) pg MCHC (32.0-36.0) g/dL RDW (12.0-15.0) % Plt Count (130-450) 10^3/uL MPV (7.9-10.8) fL Neut # (Auto) Lymph # (Auto) [place] # (Auto) Eos # (Auto) Baso # (Auto) Absolute Nucleated RBC Total Counted Band Neuts % (Manual) (0 - 10) % Abnorm Lymph % (Manual) % Nucleated RBC % Neutrophils # (Manual) (1.5-6.6) 10^3/uL Lymphocytes # (Manual) (1.5-3.5) 10^3/uL Monocytes # (Manual) (0.0-1.0) 10^3/uL Eosinophils # (Manual) (0-0.7) 10^3/uL Basophils # (Manual) (0-0.1) 10^3/uL Differential Comment Manual Slide Review Platelet Estimate (NORMAL) RBC Morph Micro Appear (NORMAL) Fibrinogen (220-496) mg/dL VBG pH (7.31-7.41) Ionized Calcium (1.15-1.33) mmol/L Sodium (135-145) mmol/L Potassium (3.5-5.0) mmol/L Chloride (101-111) mmol/L Carbon Dioxide (21-32) mmol/L Anion Gap (6-13) BUN (6-20) mg/dL Creatinine (0.4-1.0) mg/dL Estimated GFR (MDRD) (>89) Glucose (70-100) mg/dL POC Whole Bld Glucose 146 H 153 H (70 - 100) mg/dL Calcium (8.5-10.3) mg/dL Phosphorus (2.5-4.6) mg/dL Magnesium (1.7-2.8) mg/dL Total Bilirubin (0.2-1.0) mg/dL Direct Bilirubin (0.1-0.5) mg/dL AST (10-42) IU/L ALT (10-60) IU/L Alkaline Phosphatase (42-121) IU/L Total Protein (6.7-8.2) g/dL Albumin (3.2-5.5) g/dL Globulin (2.1-4.2) g/dL Fluid Source Fluid Color Fluid Clarity Fluid WBC /mm^3 Fluid RBC /mm^3 Fluid Neutrophils % % Fluid Lymphocytes % Fluid Monocytes % % Fld Mesothelial Cell % % Last Dose Date Last Dose Time Vancomycin Trough (10.0-20.0) ug/mL Serum Ketones (NEGATIVE) Blood Type A NEGATIVE 06/19/19 06/19/19 06/19/19 Range/Units 03:06 02:15 01:14 WBC (4.8-10.8) x10^3/uL RBC (4.20-5.40) 10^6/uL Hgb (12.0-16.0) g/dL Hct (37.0-47.0) % MCV (81.0-99.0) fL MCH (27.0-31.0) pg MCHC (32.0-36.0) g/dL RDW (12.0-15.0) % Plt Count (130-450) 10^3/uL MPV (7.9-10.8) fL Neut # (Auto) Lymph # (Auto) [place] # (Auto) Eos # (Auto) Baso # (Auto) Absolute Nucleated RBC Total Counted Band Neuts % (Manual) (0 - 10) % Abnorm Lymph % (Manual) % Nucleated RBC % Neutrophils # (Manual) (1.5-6.6) 10^3/uL Lymphocytes # (Manual) (1.5-3.5) 10^3/uL Monocytes # (Manual) (0.0-1.0) 10^3/uL Eosinophils # (Manual) (0-0.7) 10^3/uL Basophils # (Manual) (0-0.1) 10^3/uL Differential Comment Manual Slide Review Platelet Estimate (NORMAL) RBC Morph Micro Appear (NORMAL) Fibrinogen (220-496) mg/dL VBG pH (7.31-7.41) Ionized Calcium (1.15-1.33) mmol/L Sodium (135-145) mmol/L Potassium (3.5-5.0) mmol/L Chloride (101-111) mmol/L Carbon Dioxide (21-32) mmol/L Anion Gap (6-13) BUN (6-20) mg/dL Creatinine (0.4-1.0) mg/dL Estimated GFR (MDRD) (>89) Glucose (70-100) mg/dL POC Whole Bld Glucose 148 H 151 H 175 H (70 - 100) mg/dL Calcium (8.5-10.3) mg/dL Phosphorus (2.5-4.6) mg/dL Magnesium (1.7-2.8) mg/dL Total Bilirubin (0.2-1.0) mg/dL Direct Bilirubin (0.1-0.5) mg/dL AST (10-42) IU/L ALT (10-60) IU/L Alkaline Phosphatase (42-121) IU/L Total Protein (6.7-8.2) g/dL Albumin (3.2-5.5) g/dL Globulin (2.1-4.2) g/dL Fluid Source Fluid Color Fluid Clarity Fluid WBC /mm^3 Fluid RBC /mm^3 Fluid Neutrophils % % Fluid Lymphocytes % Fluid Monocytes % % Fld Mesothelial Cell % % Last Dose Date Last Dose Time Vancomycin Trough (10.0-20.0) ug/mL Serum Ketones (NEGATIVE) Blood Type 06/19/19 06/18/19 06/18/19 Range/Units 00:04 22:57 22:12 WBC (4.8-10.8) x10^3/uL RBC (4.20-5.40) 10^6/uL Hgb (12.0-16.0) g/dL Hct (37.0-47.0) % MCV (81.0-99.0) fL MCH (27.0-31.0) pg MCHC (32.0-36.0) g/dL RDW (12.0-15.0) % Plt Count (130-450) 10^3/uL MPV (7.9-10.8) fL Neut # (Auto) Lymph # (Auto) [place] # (Auto) Eos # (Auto) Baso # (Auto) Absolute Nucleated RBC Total Counted Band Neuts % (Manual) (0 - 10) % Abnorm Lymph % (Manual) % Nucleated RBC % Neutrophils # (Manual) (1.5-6.6) 10^3/uL Lymphocytes # (Manual) (1.5-3.5) 10^3/uL Monocytes # (Manual) (0.0-1.0) 10^3/uL Eosinophils # (Manual) (0-0.7) 10^3/uL Basophils # (Manual) (0-0.1) 10^3/uL Differential Comment Manual Slide Review Platelet Estimate (NORMAL) RBC Morph Micro Appear (NORMAL) Fibrinogen (220-496) mg/dL VBG pH (7.31-7.41) Ionized Calcium (1.15-1.33) mmol/L Sodium (135-145) mmol/L Potassium (3.5-5.0) mmol/L Chloride (101-111) mmol/L Carbon Dioxide (21-32) mmol/L Anion Gap (6-13) BUN (6-20) mg/dL Creatinine (0.4-1.0) mg/dL Estimated GFR (MDRD) (>89) Glucose (70-100) mg/dL POC Whole Bld Glucose 216 H 247 H 306 H (70 - 100) mg/dL Calcium (8.5-10.3) mg/dL Phosphorus (2.5-4.6) mg/dL Magnesium (1.7-2.8) mg/dL Total Bilirubin (0.2-1.0) mg/dL Direct Bilirubin (0.1-0.5) mg/dL AST (10-42) IU/L ALT (10-60) IU/L Alkaline Phosphatase (42-121) IU/L Total Protein (6.7-8.2) g/dL Albumin (3.2-5.5) g/dL Globulin (2.1-4.2) g/dL Fluid Source Fluid Color Fluid Clarity Fluid WBC /mm^3 Fluid RBC /mm^3 Fluid Neutrophils % % Fluid Lymphocytes % Fluid Monocytes % % Fld Mesothelial Cell % % Last Dose Date Last Dose Time Vancomycin Trough (10.0-20.0) ug/mL Serum Ketones (NEGATIVE) Blood Type 06/18/19 06/18/19 06/18/19 Range/Units 21:17 20:16 16:46 WBC (4.8-10.8) x10^3/uL RBC (4.20-5.40) 10^6/uL Hgb (12.0-16.0) g/dL Hct (37.0-47.0) % MCV (81.0-99.0) fL MCH (27.0-31.0) pg MCHC (32.0-36.0) g/dL RDW (12.0-15.0) % Plt Count (130-450) 10^3/uL MPV (7.9-10.8) fL Neut # (Auto) Lymph # (Auto) [place] # (Auto) Eos # (Auto) Baso # (Auto) Absolute Nucleated RBC Total Counted Band Neuts % (Manual) (0 - 10) % Abnorm Lymph % (Manual) % Nucleated RBC % Neutrophils # (Manual) (1.5-6.6) 10^3/uL Lymphocytes # (Manual) (1.5-3.5) 10^3/uL Monocytes # (Manual) (0.0-1.0) 10^3/uL Eosinophils # (Manual) (0-0.7) 10^3/uL Basophils # (Manual) (0-0.1) 10^3/uL Differential Comment Manual Slide Review Platelet Estimate (NORMAL) RBC Morph Micro Appear (NORMAL) Fibrinogen (220-496) mg/dL VBG pH (7.31-7.41) Ionized Calcium (1.15-1.33) mmol/L Sodium (135-145) mmol/L Potassium (3.5-5.0) mmol/L Chloride (101-111) mmol/L Carbon Dioxide (21-32) mmol/L Anion Gap (6-13) BUN (6-20) mg/dL Creatinine (0.4-1.0) mg/dL Estimated GFR (MDRD) (>89) Glucose (70-100) mg/dL POC Whole Bld Glucose 322 H 381 H 395 H (70 - 100) mg/dL Calcium (8.5-10.3) mg/dL Phosphorus (2.5-4.6) mg/dL Magnesium (1.7-2.8) mg/dL Total Bilirubin (0.2-1.0) mg/dL Direct Bilirubin (0.1-0.5) mg/dL AST (10-42) IU/L ALT (10-60) IU/L Alkaline Phosphatase (42-121) IU/L Total Protein (6.7-8.2) g/dL Albumin (3.2-5.5) g/dL Globulin (2.1-4.2) g/dL Fluid Source Fluid Color Fluid Clarity Fluid WBC /mm^3 Fluid RBC /mm^3 Fluid Neutrophils % % Fluid Lymphocytes % Fluid Monocytes % % Fld Mesothelial Cell % % Last Dose Date Last Dose Time Vancomycin Trough (10.0-20.0) ug/mL Serum Ketones (NEGATIVE) Blood Type Impression and Recommendations - Palliative Care Impression: This is a very complex 33-year-old woman with colon cancer metastatic disease to her liver, peritoneal carcinomatosis, and recurrent ascites. She is presented acutely for hospitalization of DKA, sepsis, anemia and uncontrolled pain. She continues with high symptom burden, of severe pain, anxiety, depression, dyspnea. Palliative care to continue provide support due to defining goals of care, and transition planning. Recommendations/Counseling Done: 1. Pain of neoplastic origin. Patient has been managed on Duragesic 75 mcg patch, with oxycodone 10 mg every three hours for breakthrough pain. Patient may need titration of her patch up to 100 mcg, particularly if she is having progressive disease. She has a high tolerance for opioids overall, but has been compliant with her prescriptions. Patient would most likely benefit from monitoring of fluid shifting to her abdomen again, with high fluid intake and ascites, will most likely need to be drained daily if not every other day. The increased pressure of the ascites on her tumor burden, has been an increased source of pain for her. 2. Anxiety. With patient's increased awareness, suspect she will push away any attempts to provide ongoing care, she gets very anxious in alternative settings is most comfortable in her bed at home. Would continue to address her pain and anxiety behaviors, with combination of the Lorazepam and morphine. 3. Advanced care planning. Patient does present is quite frail, now with acute illness, she was due for restaging scans, if possible would be of help to have this information in transition planning. Both patient and aware of patient's seriousness of illness, and expected poor prognosis and ongoing decline. Patient has not been willing to address this, has been his been trying to just support current situation, though most things have been in crisis management. We did discuss in the context if patient were to have a steep dec line, heading towards an end-of-life event, he would not want her coded are extended suffering, with her increased alertness today, does not present with decision-making capacity, but of concern about making a decision that would not be consistent with previous decisions so he does understand she most likely would have a poor outcome even if coded. Counseling provided regarding the continuum of care, options for acute end-of-life care including [facility], also looking at resources and lack of resources available to him. He is appropriately feeling overwhelmed. The medical palliative care social insurance analyst who has been in touch on a regular basis, has continue to provide support and follow-up. He is also working with hospital staff and hospitalist regarding advanced care planning developing goals of care. Meeting set with introduction of POL, for tomorrow at 11. Patient may or may not be able to participate. Time Spent: 45 minutes with greater than 50% of this done in counseling regarding goals of care, anticipatory guidance, and coordination of care.
[2019-06-20] MEDS: guaiFENesin/CODEINE 5 ML UDC PO PRN (20:26)
--- NOTE | 2019-06-20 20:26 | CT Report ---
Reason: Eval colonCA, mets, ascites, colostomy drain tube Procedure Date: 06/20/2019 Accession Number: [id number] / [id number] Procedure: CT - Abdomen/Pelvis W CPT Code: Addended Final Report FULL RESULT: EXAM: CT ABDOMEN AND PELVIS EXAM DATE: 06/20/2019 06:00 PM. CLINICAL HISTORY: Eval colon CA, mets, ascites, colostomy drain tube. COMPARISONS: ABDOMEN/PELVIS W/ 03/15/2019 1:24 PM CHEST 1 VIEW 06/18/2019 6:23 PM. TECHNIQUE: Routine helical CT imaging was performed through the abdomen and pelvis. IV contrast: OPTI 320 100ML. Enteric contrast: No. Reconstructions: Coronal and sagittal. In accordance with CT protocol optimization, one or more of the following dose reduction techniques were utilized for this exam: automated exposure control, adjustment of mA and/or KV based on patient size, or use of iterative reconstructive technique. FINDINGS: Lung Bases: Marked right lower lobe mucous plugging. Dense consolidation throughout the right lower lobe, lateral segment right middle lobe, and visualized lateral right upper lobe. There are approximately 2 cm anterior segment right upper lobe and 4 cm posterior segment left upper lobe areas of groundglass opacity. There is mild wispy opacity in the posterior medial basilar left lower lobe, possibly atelectatic. No pleural effusion. Liver: Mildly enlarged liver. No significant change in extensive heterogeneous and multinodular hypodensity throughout the liver but greatest in the right lobe consistent with metastatic disease. Gallbladder/Bile Ducts: Gallbladder surgically absent, as before. No ductal dilatation. Spleen: Mildly enlarged, as before. No focal lesions are identified. Pancreas: Normal. Adrenal Glands: Heterogeneous approximately 3.8 x 2.2 cm mass in the common limb of the left adrenal gland, as before. Right adrenal gland are unremarkable. Kidneys: Subcentimeter simple cyst lateral lower pole right kidney. New minimal hydronephrosis bilaterally. Peritoneal Cavity/Bowel: Stomach normal in size and contour. Small bowel loops are nondistended. Mild diffuse wall thickening in the descending colon and hepatic flexure of colon. There is a left mid abdominal loop colostomy, as before. There is a lobular mass in the distal descending colon measuring about 3.5 cm, as before. There are multiple part solid predominantly cystic masses in the abdomen and pelvis without significant change. There is moderate ascites, as before. There is no pneumoperitoneum. A right sided peritoneal drain is now noted. Pelvic Organs: The bladder is decompressed by Ocampo catheter. The anteverted uterus is normal in size. The ovaries are not clearly identified. Vasculature: No aneurysms or other significant abnormality. Bones: No lytic or sclerotic lesions are identified. Other: Moderate generalized body wall edema, increased. IMPRESSION: 1. Marked mucus plugging in the right lower lobe bronchus. Dense consolidation throughout the right lower lobe, lateral segment right middle lobe, and lateral aspect of the right upper lobe suggesting pneumonia or aspiration. 2. Extensive hepatic metastatic disease, as before. 3. Mild splenomegaly, as before. 4. Moderate ascites, as before. 5. Multilobular large predominantly complex cystic partially solid masses in the abdomen and pelvis consistent with neoplasm. 6. Right-sided peritoneal drain is now noted. 7. Approximately 3.5 cm mass in the distal descending colon, as before. 8. Mild diffuse wall thickening involving the ascending and hepatic flexure of the colon which may reflect colitis. 9. Left mid abdominal loop colostomy, as before. No abnormal bowel dilation. [facility] The call report notification system was initiated by Dr. Aurelio Rodriguez at 08:24 PM on 06/20/2019. ADDENDUM: 06/20/19 20:32 The above call report findings were discussed with Dr. Adams by Dr. Aurelio Rodriguez at 08:32 PM on 06/20/2019.
[2019-06-20] MEDS ORDERED: SODIUM CHLORIDE 0.9% 500 ML IV PRN (20:42)
[2019-06-20] MEDS ORDERED: INSULIN GLARGINE 300 UNIT/3 ML PEN SUBQ SCH (21:00)
[2019-06-21] MEDS: MORPHINE 2 MG/ML CARPUJECT IVP PRN ×4 (00:04→19:55)
[2019-06-21] MEDS: SODIUM CHLORIDE FLUSH 0.9% 10 ML SYRINGE IVP PRN ×6 (00:05→20:38)
[2019-06-21] MEDS: metroNIDAZOLE 500 MG/100 ML 500 MG/100 ML BAG IV SCH ×2 (03:13→11:30)
[2019-06-21] MEDS: D5NS W/20 MEQ KCL 1,000 ML IV SCH ×4 (03:46→22:30)
[2019-06-21] MEDS: guaiFENesin/CODEINE 5 ML UDC PO PRN (03:50)
[2019-06-21] MEDS: MORPHINE SOL 10 MG/0.5 ML SYRINGE PO PRN ×3 (06:05→18:25)
[2019-06-21 06:16] LABS: BASOPHILS % (AUTO) 0.2 %; EOSINOPHILS % (AUTO) 0.2 %; HGB - HEMOGLOBIN 7.6 g/dL (12.0-16.0); LYMPHOCYTES % (AUTO) 16.6 %; MEAN CORPUSCULAR HEMOGLOBIN 29.6 pg (27.0-31.0); MEAN CORPUSCULAR HGB CONC 31.1 g/dL (32.0-36.0); MEAN CORPUSCULAR VOLUME 94.9 fL (81.0-99.0); MEAN PLATELET VOLUME 11.7 fL (7.9-10.8); MONOCYTES % (AUTO) 5.4 %; NEUTROPHILS % (AUTO) 76.7 %; RED BLOOD COUNT 2.57 10^6/uL (4.20-5.40); RED CELL DISTRIBUTION WIDTH 20.2 % (12.0-15.0); VBG PH 7.379 (7.31-7.41); WHITE BLOOD COUNT 4.5 x10^3/uL (4.8-10.8)
[2019-06-21 06:21] LABS: PLT - PLATELET COUNT 27 10^3/uL (130-450)
[2019-06-21 06:22] LABS: ABNORMAL LYMPHS % (MANUAL) 0 %
[2019-06-21 06:25] LABS: VANCOMYCIN,RANDOM 16.9 ug/mL
[2019-06-21 06:31] LABS: CALCIUM 7.2 mg/dL (8.5-10.3); CREATININE 0.7 mg/dL (0.4-1.0); MAGNESIUM 1.6 mg/dL (1.7-2.8); PHOSPHORUS 2.3 mg/dL (2.5-4.6)
[2019-06-21] MEDS ORDERED: MAGNESIUM SULFATE 2 GRAM 2 GM/50 ML BAG IV ONE (06:40)
[2019-06-21] MEDS: CEFEPIME 2 GM in SODIUM CHLORIDE 0.9% MINIBAG 100 ML IV SCH (06:49)
[2019-06-21] MEDS: PANTOPRAZOLE 40 MG VIAL IVP SCH (06:49)
[2019-06-21 07:00] LABS: BAND NEUTROPHILS % (MANUAL) 3 %; DIFFERENTIAL COMMENT MANUAL DIFFERENTIAL; LYMPHOCYTES # (MANUAL) 0.6 10^3/uL (1.5-3.5); LYMPHOCYTES % (MANUAL) 14 %; METAMYELOCYTES % (MANUAL) 2 %; MONOCYTES # (MANUAL) 0.1 10^3/uL (0.0-1.0); MYELOCYTES % (MANUAL) 2 %; PLATELET ESTIMATE, MANUAL DECREASED (<130,000) (NORMAL)
[2019-06-21] MEDS ORDERED: POTASSIUM PHOSPHATE 15 MMOL in SODIUM CHLORIDE 0.9% 250 ML IV ONE (08:00)
[2019-06-21] MEDS: INSULIN ASPART 300 UNIT/3 ML PEN SUBQ SCH ×4 (08:56→20:43)
[2019-06-21] MEDS ORDERED: CALCIUM GLUCONATE 1,000 MG in SODIUM CHLORIDE 0.9% 50 ML IV ONE (09:00)
[2019-06-21] MEDS ORDERED: VANCOMYCIN INJ 1 GM in SODIUM CHLORIDE 0.9% 250 ML IV SCH (09:00)
[2019-06-21] MEDS: SODIUM CHLORIDE FLUSH 0.9% 10 ML SYRINGE IVP SCH ×3 (09:37→19:55)
--- NOTE | 2019-06-21 12:40 | CONSULTATION NOTE ---
Palliative Care Follow Up - Referral Referring Provider: April Williamson MD Time of Visit: Referral setting: Hospitalized patient Referral Reason: Met Colon Ca/Goals of care - Information Sources Records reviewed: Previous records reviewed Exam limitations: Clinical condition (patient still with confusion and acutely ill) - History of Present Illness Update Brief HPI Update: Is a complicated 33-year-old woman who presented acutely with DKA, sepsis, and pneumonia. She continues to have 2 small increments of improvement, is somewhat more responsive, but unable to present with decision-making capacity. She can answer yes/no questions, she can say she is heard you, she cannot answer any direct questions. She would not be able to tell me the consequences of any decision that is made and weighing benefits and burdens and implications related to this. In the context of who she is, she has always avoided any conversation around end of life, goals of care, or seriousness of her illness. She does know she has been told she was getting treatment for extension of quality and quantity of life, and it was not curative. She is has spoken on and off over our relationship over this last year about her worries and concerns for her children, how best to talk to him about this, about her anxiety and inability to really talk or work with this. She is always changed the topic, or directly checked conversation down regarding this, but has still been willing to continue palliative care. Today she presents with decreased morphine and lorazepam with the hope to be able to participate in a conversation, her Ramón is hoping she would "make the decision", though knows that now both physically and at baseline emotionally this would be a difficult thing for her to do. She appears again acutely ill, has a moist cough, drifts in and out of awareness during our conversation, is not able to verbalize back her understanding of her illness, the severity of her condition, and continues to have moaning and signs and sympt oms of discomfort. Social History - Living Situation Living arrangement: At home Living Situation: With spouse/s.o., With family Support System: Patient's does work full-time, to be able to support the family, they have a daughter together, and she has 2 sons from a former marriage. This is also been of bone of contention about how this will all fall together, she has not been willing to do any documentation or arrangements prior, his plan is to take care of it after her . He is planning to keep the family together. She has alienated most of her family, friends, does have a few people she is Allies with. Ramón did say at this point in time that his mother would be willing to come out and provide support and care in the home which will be a huge relief as far as being able to manage no matter what the outcome is. Medications/Allergies - Medications Active Medication List: Active Medications Acetaminophen (Tylenol) 650 mg MT Q8HR PRN PRN Reason: Pain or Fever > 38C (100.4F) Last Admin: 06/20/19 18:15 Dose: 650 mg Fentanyl (Duragesic) 1 patch TOP Q72H [facility] Last Admin: 06/19/19 11:07 Dose: 1 patch Fentanyl (Duragesic) 1 patch TOP Q72H [facility] Last Admin: 06/19/19 11:08 Dose: 1 patch Guaifenesin/Codeine Phosphate (Robitussin Ac) 5 ml PO Q6HR PRN PRN Reason: Cough Last Admin: 06/21/19 03:50 Dose: 5 ml Cefepime HCl 2 gm/ Sodium (Chloride) 100 mls @ 200 mls/hr IV Q12H [facility] Last Infusion: 06/21/19 07:35 Dose: Infused Metronidazole (Flagyl 500 Mg/100 Ml) 500 mg in 100 mls @ 100 mls/hr IV Q8H [facility] Last Admin: 06/21/19 11:30 Dose: 100 mls/hr Potassium Chloride/Dextrose/Sod Cl () 1,000 mls @ 175 mls/hr IV .Q5H43M [facility] Last Admin: 06/21/19 10:10 Dose: 175 mls/hr Sodium Chloride (Normal Saline 0.9%) 500 mls @ 0 mls/hr IV Q24H PRN PRN Reason: TKO RATE Last Infusion: 06/21/19 04:15 Dose: 20 mls/hr Vancomycin HCl 1 gm/ Sodium (Chloride) 250 mls @ 167 mls/hr IV Q24H [facility] Last Admin: 06/21/19 09:23 Dose: 167 mls/hr Insulin Aspart (Novolog) 3 - 11 unit SUBQ 0800,1200,1700,2100 [facility]; Protocol Last Admin: 06/21/19 12:00 Dose: 12 unit Insulin Glargine (Lantus Solostar) 10 unit SUBQ QPM [facility] Last Admin: 06/20/19 21:22 Dose: 10 unit Lorazepam (Ativan Inj (Vial)) 0.5 mg IVP Q3H PRN PRN Reason: Restlessness Last Admin: 06/20/19 19:45 Dose: 0.5 mg Mineral Oil (Cavilon) 1 applic TOP PRN PRN PRN Reason: Skin Care Last Admin: 06/19/19 21:15 Dose: 1 applic Morphine Sulfate (Roxanol) 10 mg PO Q4HR PRN PRN Reason: PAIN Last Admin: 06/21/19 11:39 Dose: 10 mg Morphine Sulfate (Morphine (Carpuject)) 2 mg IVP Q3HR PRN PRN Reason: PAIN Ondansetron HCl (Zofran Inj) 4 mg IVP Q6HR PRN PRN Reason: Nausea / Vomiting Pantoprazole Sodium (Protonix) 40 mg IVP QDAC [facility] Last Admin: 06/21/19 06:49 Dose: 40 mg Sodium Chloride (Normal Saline Flush 0.9%) 10 ml IVP 0100,0900,1700 [facility] Last Admin: 06/21/19 09:37 Dose: 10 ml Sodium Chloride (Normal Saline Flush 0.9%) 10 ml IVP PRN PRN PRN Reason: NEEDED PER PROVIDER ORDERS Last Admin: 06/21/19 07:03 Dose: 10 ml Sodium Chloride (Normal Saline Flush 0.9%) 20 ml IVP PRN PRN PRN Reason: After Blood Draw Last Admin: 06/21/19 05:40 Dose: 20 ml Insulin Glargine,Hum.rec.anlog [Lantus] 30 - 40 unit SQ QDBREAKFAST 02/13/16 Docusate Sodium 200 mg PO BID 06/27/18 Insulin Aspart [NovoLOG] 0 units SUBQ TID PRN MDD sliding scale 06/27/18 clonazePAM [Clonazepam] 0.5 mg PO TID PRN 06/27/18 Ondansetron [Zuplenz] 8 mg PO Q8HR PRN 11/02/18 Polyethylene Glycol 3350 [Miralax] 17 mg PO DAILY PRN 01/03/19 Prochlorperazine Maleate [Compazine] 10 mg PO Q6HR PRN 01/03/19 Potassium Chloride 20 meq PO BID 03/19/19 Insulin Glargine [Lantus Solostar] 20 units SQ QPM 03/21/19 Loperamide [Imodium] 2 mg PO PRN PRN MDD 8/tabs 04/25/19 Oxycodone HCl 10 mg PO Q3HR PRN MDD 8/24 hours 04/25/19 fentaNYL [Fentanyl 75mcg patch] 75 mcg TOP Q72H 04/25/19 - Allergies Allergies/Adverse Reactions: Allergies Allergy/AdvReac Type Severity Reaction Status Date / Time No Known Drug Allergies Allergy Verified 06/18/19 16:43 Review of Systems - Constitutional Constitutional: reports: Poor appetite, Weight loss - Eyes Eyes: reports: Other (difficulty focusing) - Ears, Nose & Throat Ears, Nose & Throat: reports: Dry mouth (resistant to care) - Respiratory Respiratory: reports: Cough - Gastrointestinal Gastrointestinal: reports: Abdominal distention - Genitourinary Genitourinary: reports: Other (stanton) - Musculoskeletal Musculoskeletal: reports: Muscle weakness (bedbound) - Integumentary Integumentary: reports: Dryness - Neurological Neurological: reports: Memory problems, Slurred speech - Psychiatric Psychiatric: reports: Depression, Anxiety, Aggitation - Endocrine Endocrine: reports: Other (diabetes type i) - Hematologic/Lymphatic Hematologic/Lymphatic: reports: Anemia (worsening), Recurrent infections (treating for pneumonia/sepsis) - All Other Systems All Other Systems: reports: Other (limited ROS) Physical Exam - Vital Signs Vital Signs: Vital Signs x48h Temp Pulse Resp BP Pulse Ox 06/21/19 11:00 128 H 22 119/77 100 06/21/19 10:00 37.7 C H 131 H 24 117/84 H 100 06/21/19 09:00 37.6 C H 131 H 21 104/64 98 06/21/19 08:00 37.7 C H 128 H 23 122/87 H 95 06/21/19 07:00 37.8 C H 128 H 21 99/70 100 06/21/19 06:00 37.7 C H 126 H 21 91/65 100 06/21/19 05:00 37.7 C H 123 H 15 91/55 L 100 - Physical Exam General Appearance: positive: Moderate distress, Anxious, Lethargic Eyes Bilateral: positive: Other (difficulty focusing) ENT: positive: Dry mucous membranes Neck: positive: Trachea midline Cardiovascular: positive: Tachycardia Respiratory: positive: Other (moist cough) Abdomen: positive: Mass, Distended, Other (colostomly) Skin: positive: Pallor, Dryness Neurologic/Psychiatric: positive: Disoriented to time, Weakness, Slurred/abnml speech, Unintelligible speech, Depressed mood/affect, Flat affect Palliative Care - POLST Patient has POLST: Yes POLST Status: DNR, Selective Treatment Pain: Pain worsening, Location (abdominal) - Palliative Care Discussion: Discussion attempted to draw patient into decision-making, trying to center if she understands the seriousness of her current condition, where she is, and current treatment plan. Patient is unable other than to acknowledge she is in the hospital, to verbalize understanding of information shared nor participate in conversation regarding improving understanding. Did attempt a various different approaches, as patient mental status and awareness fluctuated, to see if she wanted to transition to comfort or hospice or continue to be treated. This was actually more anxiety producing and distressful for her, since that she did not "wants to kill her", and was really unable to participate in any kind of goals. We did discuss in the context of reassuring, that we will continue to try to make her better, so she could get home, and that everyone was doing the best they can. Reassurance given that she would be well cared for, kept comfortable, and encouraged participation/cooperation with her care. This is very difficult for her , he really wanted her to be able to "make a decision". We did discuss in the context of Samantha's anxiety and avoidance, most likely even if she were awake and alert would not be able to participate in a meaningful goals of care conversation as she is always pushed away any acknowledgment or conversation regarding end of life. He has been to the home, is working with [employer] at this point, knowing that even if she goes home or gets better temporarily, that she is going to continue to deteriorate with her underlying cancer. He has a good understanding that at this point in time we are trying to treat for comfort her pneumonia and sepsis, recognizing she most likely will not be a candidate for treatment for her cancer in the future. Participated in shared decision making, recommended DNA R and DNI given patient most likely would not have the ability to recover if she were to be at a point that she was needing resuscitation. He is in agreement in the congruence with Samantha's approach and wishes, to continue to treat at least until there are no signs or symptoms of improvement, at that point in time would be willing to discuss transition to comfort. We did discuss in the future, though about hospice support, he does not think she would ever accept this is she were to participate in decision, but counseling provided regarding home hospice. She has had home health before, and has been fairly non-participatory and rejected often visits and/ or instruction. Reviewed again previous resources for hospice end of life, if needed regarding possible general inpatient [place], [facility], or SNF placement and general costs associated with this. He does not feel he could afford care again. He will meet with [employer] for SSI application, [place] has been counseled before on this and multiple other resources, but has not followed through. Results - Lab Results Fish Bones: 06/21/19 06:08 06/21/19 06:08 Lab and Imaging Results: Lab Results x24hrs 06/21/19 06/21/19 06/21/19 Range/Units 11:51 08:14 06:08 WBC (4.8-10.8) x10^3/uL RBC (4.20-5.40) 10^6/uL Hgb (12.0-16.0) g/dL Hct (37.0-47.0) % MCV (81.0-99.0) fL MCH (27.0-31.0) pg MCHC (32.0-36.0) g/dL RDW (12.0-15.0) % Plt Count (130-450) 10^3/uL MPV (7.9-10.8) fL Neut # (Auto) (1.5-6.6) 10^3/uL Lymph # (Auto) (1.5-3.5) 10^3/uL [place] # (Auto) (0.0-1.0) 10^3/uL Eos # (Auto) (0.0-0.7) 10^3/uL Baso # (Auto) (0.0-0.1) 10^3/uL Absolute Nucleated RBC x10^3/uL Total Counted Band Neuts % (Manual) Abnorm Lymph % (Manual) Metamyelocytes % ( - 0) % Myelocytes % ( - 0) % Nucleated RBC % /100WBC Neutrophils # (Manual) Lymphocytes # (Manual) Monocytes # (Manual) Eosinophils # (Manual) Basophils # (Manual) Differential Comment Manual Slide Review Platelet Estimate (NORMAL) Platelet Morphology (NORMAL) RBC Morph Micro Appear (NORMAL) VBG pH (7.31-7.41) Ionized Calcium (1.15-1.33) mmol/L Sodium (135-145) mmol/L Potassium (3.5-5.0) mmol/L Chloride (101-111) mmol/L Carbon Dioxide (21-32) mmol/L Anion Gap (6-13) BUN (6-20) mg/dL Creatinine (0.4-1.0) mg/dL Estimated GFR (MDRD) (>89) Glucose (70-100) mg/dL POC Whole Bld Glucose 429 H 474 H (70 - 100) mg/dL Calcium (8.5-10.3) mg/dL Phosphorus (2.5-4.6) mg/dL Magnesium (1.7-2.8) mg/dL Albumin 1.2 L (3.2-5.5) g/dL Last Dose Date Last Dose Time Random Vancomycin ug/mL 06/21/19 06/21/19 06/21/19 Range/Units 06:08 06:08 06:08 WBC (4.8-10.8) x10^3/uL RBC (4.20-5.40) 10^6/uL Hgb (12.0-16.0) g/dL Hct (37.0-47.0) % MCV (81.0-99.0) fL MCH (27.0-31.0) pg MCHC (32.0-36.0) g/dL RDW (12.0-15.0) % Plt Count (130-450) 10^3/uL MPV (7.9-10.8) fL Neut # (Auto) (1.5-6.6) 10^3/uL Lymph # (Auto) (1.5-3.5) 10^3/uL [place] # (Auto) (0.0-1.0) 10^3/uL Eos # (Auto) (0.0-0.7) 10^3/uL Baso # (Auto) (0.0-0.1) 10^3/uL Absolute Nucleated RBC x10^3/uL Total Counted Band Neuts % (Manual) Abnorm Lymph % (Manual) Metamyelocytes % ( - 0) % Myelocytes % ( - 0) % Nucleated RBC % /100WBC Neutrophils # (Manual) Lymphocytes # (Manual) Monocytes # (Manual) Eosinophils # (Manual) Basophils # (Manual) Differential Comment Manual Slide Review Platelet Estimate (NORMAL) Platelet Morphology (NORMAL) RBC Morph Micro Appear (NORMAL) VBG pH 7.379 (7.31-7.41) Ionized Calcium 1.07 L (1.15-1.33) mmol/L Sodium 142 (135-145) mmol/L Potassium 4.4 (3.5-5.0) mmol/L Chloride 120 H* (101-111) mmol/L Carbon Dioxide 15 L (21-32) mmol/L Anion Gap 7.0 (6-13) BUN 28 H (6-20) mg/dL Creatinine 0.7 (0.4-1.0) mg/dL Estimated GFR (MDRD) 95 (>89) Glucose 485 H (70-100) mg/dL POC Whole Bld Glucose (70 - 100) mg/dL Calcium 7.2 L (8.5-10.3) mg/dL Phosphorus 2.3 L (2.5-4.6) mg/dL Magnesium 1.6 L (1.7-2.8) mg/dL Albumin (3.2-5.5) g/dL Last Dose Date UNKNOWN Last Dose Time UNKNOWN Random Vancomycin 16.9 ug/mL 06/21/19 06/20/19 06/20/19 Range/Units 06:08 21:16 16:58 WBC 4.5 L 5.9 (4.8-10.8) x10^3/uL RBC 2.57 L 2.98 L (4.20-5.40) 10^6/uL Hgb 7.6 L 8.6 L (12.0-16.0) g/dL Hct 24.4 L 27.8 L (37.0-47.0) % MCV 94.9 93.3 (81.0-99.0) fL MCH 29.6 28.9 (27.0-31.0) pg MCHC 31.1 L 30.9 L (32.0-36.0) g/dL RDW 20.2 H 19.9 H (12.0-15.0) % Plt Count 27 L* 36 L (130-450) 10^3/uL MPV 11.7 H 9.6 (7.9-10.8) fL Neut # (Auto) Not Reportable 4.7 (1.5-6.6) 10^3/uL Lymph # (Auto) Not Reportable 0.9 L (1.5-3.5) 10^3/uL [place] # (Auto) Not Reportable 0.2 (0.0-1.0) 10^3/uL Eos # (Auto) Not Reportable 0.0 (0.0-0.7) 10^3/uL Baso # (Auto) Not Reportable 0.0 (0.0-0.1) 10^3/uL Absolute Nucleated RBC Not Reportable 0.00 x10^3/uL Total Counted 100 Band Neuts % (Manual) 3 Not Reportable Abnorm Lymph % (Manual) 0 Not Reportable Metamyelocytes % 2 H ( - 0) % Myelocytes % 2 H ( - 0) % Nucleated RBC % Not Reportable 0.0 /100WBC Neutrophils # (Manual) 3.6 Not Reportable Lymphocytes # (Manual) 0.6 L Not Reportable Monocytes # (Manual) 0.1 Not Reportable Eosinophils # (Manual) 0.0 Not Reportable Basophils # (Manual) 0.0 Not Reportable Differential Comment MANUAL DIFFERENTIAL MANUAL=AUTO DIFF Manual Slide Review Indicated Platelet Estimate DECREASED (<130,000) DECREASED (<130,000) (NORMAL) Platelet Morphology NORMAL APPEARANCE (NORMAL) RBC Morph Micro Appear 1+ OVALOCYTES 1+ SCHISTOCYTES (NORMAL) VBG pH (7.31-7.41) Ionized Calcium (1.15-1.33) mmol/L Sodium (135-145) mmol/L Potassium (3.5-5.0) mmol/L Chloride (101-111) mmol/L Carbon Dioxide (21-32) mmol/L Anion Gap (6-13) BUN (6-20) mg/dL Creatinine (0.4-1.0) mg/dL Estimated GFR (MDRD) (>89) Glucose (70-100) mg/dL POC Whole Bld Glucose 358 H (70 - 100) mg/dL Calcium (8.5-10.3) mg/dL Phosphorus (2.5-4.6) mg/dL Magnesium (1.7-2.8) mg/dL Albumin (3.2-5.5) g/dL Last Dose Date Last Dose Time Random Vancomycin ug/mL 06/20/19 Range/Units 16:35 WBC (4.8-10.8) x10^3/uL RBC (4.20-5.40) 10^6/uL Hgb (12.0-16.0) g/dL Hct (37.0-47.0) % MCV (81.0-99.0) fL MCH (27.0-31.0) pg MCHC (32.0-36.0) g/dL RDW (12.0-15.0) % Plt Count (130-450) 10^3/uL MPV (7.9-10.8) fL Neut # (Auto) (1.5-6.6) 10^3/uL Lymph # (Auto) (1.5-3.5) 10^3/uL [place] # (Auto) (0.0-1.0) 10^3/uL Eos # (Auto) (0.0-0.7) 10^3/uL Baso # (Auto) (0.0-0.1) 10^3/uL Absolute Nucleated RBC x10^3/uL Total Counted Band Neuts % (Manual) Abnorm Lymph % (Manual) Metamyelocytes % ( - 0) % Myelocytes % ( - 0) % Nucleated RBC % /100WBC Neutrophils # (Manual) Lymphocytes # (Manual) Monocytes # (Manual) Eosinophils # (Manual) Basophils # (Manual) Differential Comment Manual Slide Review Platelet Estimate (NORMAL) Platelet Morphology (NORMAL) RBC Morph Micro Appear (NORMAL) VBG pH (7.31-7.41) Ionized Calcium (1.15-1.33) mmol/L Sodium (135-145) mmol/L Potassium (3.5-5.0) mmol/L Chloride (101-111) mmol/L Carbon Dioxide (21-32) mmol/L Anion Gap (6-13) BUN (6-20) mg/dL Creatinine (0.4-1.0) mg/dL Estimated GFR (MDRD) (>89) Glucose (70-100) mg/dL POC Whole Bld Glucose 211 H (70 - 100) mg/dL Calcium (8.5-10.3) mg/dL Phosphorus (2.5-4.6) mg/dL Magnesium (1.7-2.8) mg/dL Albumin (3.2-5.5) g/dL Last Dose Date Last Dose Time Random Vancomycin ug/mL Impression and Recommendations - Palliative Care Impression: This is a 33-year-old woman who is quite complicated with metastatic colon cancer to the liver, and now with acute hospitalization with pneumonia, sepsis, and recovering from DKA. Patient remains quite fragile, she is cachectic, has had declining functional status and not declining cognitive status. Patient does not present with decision-making capacity, has had family conference and met with Ramón, currently decision has been made for DNA R/DNI, continue with treatment and monitor response. Palliative care to continue to follow for goals of care and transition planning as needed. Recommendations/Counseling Done: 1. Advance care planning. Patient unable to participate in goals of care conversation, has high anxiety, does not present mentally with decision-making capacity, this now defaults to the . In alignment with her previous decisions he will continue to treat her pneumonia and other reversible conditions, he is in agreement for DNA R/DNI and recognizes she may continue to deteriorate. Unfortunately he still needs to work, he has going to get increased support his mother is flying out to provide care for the children and assist with Samantha if she returns home. Patient would be appropriate for transition to hospice, though she has been quite resistant to any kind of discussion or moving towards hospice care in the past. Given patient's fragility, will continue to monitor, regarding appropriate decisions in the next few days. Has been given "hard choices for loving people" for further support regarding his decisions. This information was passed on to hospitalist, who will change her status to DNAR Palliative care will be available again on Monday for further support and transition planning. Time Spent: 75 minutes with greater than 50% of this done in counseling regarding goals of care, family meeting, attempt to Gauge patient in decision-making, she does not present with decision-making capacity, coordination of care with hospital team
[2019-06-21] MEDS: LORazepam 2 MG/ML VIAL IVP PRN ×2 (13:54→20:38)
--- NOTE | 2019-06-21 14:23 | PROVIDER PROGRESS NOTE ---
Assessment/Plan - Problem List (1) Hypotension Assessment/Plan: Slightly improved BP on fluids at 175 cc/hr and got I Albumen dose. Continue to treat infection, advance diet if tolerated for her fluids, keep narcotics and anxiolytics at minimal dose due to low BP, but keep pain and anxiety under control. (2) Bacteremia due to Streptococcus pneumoniae Assessment/Plan: The first blood cx all turned pos quickly, the blood cx from 06/19 and 06/20 are neg to date. The sensitivities are back and will change empiric iv Vanco, Cefepime and Flagyl to iv Levaquin. Discussed with Pharmacist, Dom Will plan a 14 day total course, therefore 11 more days. (3) Pneumonia Assessment/Plan: Continue management as in #2, Mucinex. The abd CT also saw a mucous plug, but she has a strong cough and is not desaturating. (4) DM type 1 (diabetes mellitus, type 1) Assessment/Plan: She is now running glu 300-400, on D5 in iv which is her main calorie source, as she is taking minimally off her diabetic diet ordered. Will adjust ss Insulin to highest and increase Lantus at night (5) Altered mental status Assessment/Plan: She is now comfortable wrt pain control, but is therefore somnolent (6) Colon cancer metastasized to liver Assessment/Plan: CT of abdomen shows persistent CA with mets. (7) Malignant ascites Assessment/Plan: With pain in abdomen and pelvis, draining her ascites daily of 1L was the original plan, hampered by lack of Aspire bags. We have now obtained the proper bags, by [facility]. Will change order from qod ascites drainage of 2L to drain daily 1L. Continue pain control with Morphine sl and iv prn break-through pain. (8) Severe protein-calorie malnutrition Assessment/Plan: Continue calories per iv and po, and she may need tpn soon. (9) Anemia Assessment/Plan: Hgb stable, after transfusion 2 days ago. Follow CBC q12-24 hrs (10) Thrombocytopenia Assessment/Plan: Plt iU was transfused yesterday, but plts continue to be very low, partly from hemodillution. I suspect her marrow is shutting down as well. There are no further signs of bleeding (like she had 2 days ago with blood seen in the colostomy bag). Will watch plts q12-24h, transfuse if there is again bleeding anywhere or if plts drop < 10K. (11) History of anxiety Assessment/Plan: Continue Ativan prn agitation/anxiety (12) Personality disorder Assessment/Plan: As per the Palliative Care notes and husbands conversations with me. (13) Chronic pain due to neoplasm Assessment/Plan: Continue Morphine as ordered, avoiding over sedation. (14) Dehydration Assessment/Plan: Improved, she is now >10L pos in fluid balance since admission, but alot goes into her ascites accumulation. (15) Severe sepsis Assessment/Plan: Resolved (16) DKA (diabetic ketoacidoses) Qualifiers: Diabetes mellitus type: type 1 Assessment/Plan: Resolved - Current Meds Current Meds: Current Medications Generic Name Dose Route Start Last Admin Trade Name Freq PRN Reason Stop Dose Admin Acetaminophen 650 mg 06/20/19 01:47 06/20/19 18:15 Tylenol IN 650 mg Q8HR PRN Administration Pain or Fever > 38C (100.4F) Fentanyl 1 patch 06/19/19 11:00 06/19/19 11:07 Duragesic TOP 1 patch Q72H AIRAM Administration Fentanyl 1 patch 06/19/19 11:00 06/19/19 11:08 Duragesic TOP 1 patch Q72H AIRAM Administration Guaifenesin/Codeine Phosphate 5 ml 06/20/19 19:54 06/21/19 03:50 Robitussin Ac PO 5 ml Q6HR PRN Administration Cough Cefepime HCl 2 gm/ Sodium 100 mls @ 200 mls/hr 06/19/19 07:00 06/21/19 07:35 Chloride IV Infused Q12H AIRAM Infusion Metronidazole 500 mg in 100 mls @ 100 mls/hr 06/19/19 03:00 06/21/19 12:30 Flagyl 500 Mg/100 Ml IV Infused Q8H AIRAM Infusion Potassium Chloride/Dextrose/Sod Cl 1,000 mls @ 175 mls/hr 06/20/19 08:08 06/21/19 10:10 IV 175 mls/hr .Q5H43M AIRAM Administration Sodium Chloride 500 mls @ 0 mls/hr 06/20/19 20:42 06/21/19 04:15 Normal Saline 0.9% IV 20 mls/hr Q24H PRN Infusion TKO RATE TKO Vancomycin HCl 1 gm/ Sodium 250 mls @ 167 mls/hr 06/21/19 09:00 06/21/19 09 :23 Chloride IV 167 mls/hr Q24H AIRAM Administration Insulin Aspart 3 - 11 unit 06/21/19 09:00 06/21/19 12:00 Novolog SUBQ 12 unit 0800,1200,1700,2100 AIRAM Administration Protocol Insulin Glargine 10 unit 06/20/19 21:00 06/20/19 21:22 Lantus Solostar SUBQ 10 unit QPM AIRAM Administration Lorazepam 0.5 mg 06/20/19 08:06 06/21/19 13:54 Ativan Inj (Vial) IVP 0.5 mg Q3H PRN Administration Restlessness Mineral Oil 1 applic 06/19/19 19:23 06/19/19 21:15 Cavilon TOP 1 applic PRN PRN Administration Skin Care Morphine Sulfate 10 mg 06/20/19 12:05 06/21/19 11:39 Roxanol PO 10 mg Q4HR PRN Administration PAIN Morphine Sulfate 2 mg 06/21/19 08:51 06/21/19 13:07 Morphine (Carpuject) IVP 2 mg Q3HR PRN Administration PAIN Pantoprazole Sodium 40 mg 06/19/19 07:00 06/21/19 06:49 Protonix IVP 40 mg QDAC AIRAM Administration Sodium Chloride 10 ml 06/19/19 01:00 06/21/19 09:37 Normal Saline Flush 0.9% IVP 10 ml 0100,0900,1700 AIRAM Administration Sodium Chloride 10 ml 06/18/19 19:26 06/21/19 07:03 Normal Saline Flush 0.9% IVP 10 ml PRN PRN Administration NEEDED PER PROVIDER ORDERS Sodium Chloride 20 ml 06/20/19 20:42 06/21/19 05:40 Normal Saline Flush 0.9% IVP 20 ml PRN PRN Administration After Blood Draw - Lab Result Fish Bone Diagrams: 06/22/19 04:42 06/22/19 04:42 - Additional Planning My Orders: My Active Orders 06/20/19 16:58 CULTURE, BLOOD #1 [RM] Routine 06/20/19 17:15 Miscellaenous Nursing Order [RC] ONCE 06/20/19 20:42 Sodium Chloride 0.9% [Normal Saline 0.9%] 500 ml IV Q24H Sodium Chloride Flush 0.9% [Normal Saline Flush 0.9%] 20 ml IVP PRN PRN 06/20/19 21:00 Insulin Glargine [Lantus Solostar] 10 unit SUBQ QPM 06/21/19 08:48 Miscellaenous Nursing Order [RC] DAILY 06/21/19 08:51 Morphine Inj (Carpuject) [Morphine (Carpuject)] 2 mg IVP Q3HR PRN 06/21/19 09:00 Insulin Aspart [NovoLOG] 3 - 11 unit SUBQ 0800,1200,1700,2100 06/21/19 14:20 Miscellaenous Nursing Order [RC] DAILY 06/21/19 18:00 CBC W/O DIFF (HEMOGRAM) [HEME] Timed 06/21/19 Lunch Carb-controlled Diet [DIET] 06/24/19 08:30 VANCOMYCIN TROUGH [CHEM] Timed Subjective - Subjective Patient Reports: Resting Comfortably Nursing Reports: Confused, Other (Answers, then voice trails off and she falls asleep) Objective Vital Signs: Vital Signs - 24 hr 06/20/19 06/20/19 06/20/19 15:00 16:00 17:00 Temperature 37.7 C H 37.9 C H 38.0 C H Heart Rate [ 125 H 137 H 137 H Monitoring electrodes] Respiratory 20 19 24 Rate Blood Pressure [Left Brachial artery] Blood Pressure 102/82 H 90/69 122/89 H [Right Brachial artery] O2 Saturation 100 97 100 06/20/19 06/20/19 06/20/19 18:00 19:00 20:00 Temperature 38.2 C H 38.2 C H 37.9 C H Heart Rate [ 143 H 141 H 138 H Monitoring electrodes] Respiratory 29 H 24 22 Rate Blood Pressure 105/65 [Left Brachial artery] Blood Pressure 116/74 104/69 [Right Brachial artery] O2 Saturation 100 99 98 06/20/19 06/20/19 06/20/19 21:00 22:00 23:00 Temperature 38.1 C H 38.2 C H 38.1 C H Heart Rate [ 132 H 132 H 127 H Monitoring electrodes] Respiratory 22 23 22 Rate Blood Pressure 78/53 L 82/52 L 88/57 L [Left Brachial artery] Blood Pressure [Right Brachial artery] O2 Saturation 99 100 100 06/21/19 06/21/19 06/21/19 00:00 01:09 02:00 Temperature 38 C H 37.9 C H 37.9 C H Heart Rate [ 128 H 124 H 126 H Monitoring electrodes] Respiratory 26 H 22 22 Rate Blood Pressure 102/69 101/68 86/56 L [Left Brachial artery] Blood Pressure [Right Brachial artery] O2 Saturation 93 99 98 06/21/19 06/21/19 06/21/19 03:00 04:00 05:00 Temperature 37.9 C H 37 C 37.7 C H Heart Rate [ 123 H 124 H 123 H Monitoring electrodes] Respiratory 21 24 15 Rate Blood Pressure 90/59 L 92/59 L 91/55 L [Left Brachial artery] Blood Pressure [Right Brachial artery] O2 Saturation 99 100 06/21/19 06/21/19 06/21/19 06:00 07:00 08:00 Temperature 37.7 C H 37.8 C H 37.7 C H Heart Rate [ 126 H 128 H 128 H Monitoring electrodes] Respiratory 21 21 23 Rate Blood Pressure 91/65 99/70 122/87 H [Left Brachial artery] Blood Pressure [Right Brachial artery] O2 Saturation 100 100 95 06/21/19 06/21/19 06/21/19 09:00 10:00 11:00 Temperature 37.6 C H 37.7 C H Heart Rate [ 131 H 131 H 128 H Monitoring electrodes] Respiratory 21 24 22 Rate Blood Pressure 104/64 117/84 H 119/77 [Left Brachial artery] Blood Pressure [Right Brachial artery] O2 Saturation 98 100 100 06/21/19 06/21/19 06/21/19 12:00 13:00 14:00 Temperature 37.7 C H Heart Rate [ 134 H 132 H 133 H Monitoring electrodes] Respiratory 23 21 22 Rate Blood Pressure 101/72 110/80 110/83 H [Left Brachial artery] Blood Pressure [Right Brachial artery] O2 Saturation 100 100 100 Oxygen O2 Source Room air I&O (Last 24 Hrs): Intake and Output Totals x24h 06/19/19 06/20/19 06/21/19 23:59 23:59 23:59 Intake Total 6738.393 6002.483 2595 Output Total 3374 3370 1271 Balance 2954.393 2632.483 1324 General: Other (Somnolent) HEENT: Other (DRy mucosa) Neck: Supple Neuro: Non Focal Cardiovascular: Regular rate Respiratory: No respiratory distress, Other (Has a wet cough) Abdomen: Soft, Other (R sided peritoneal tube with dressing, L colostomy, mild distensiom of abdomen) Extremities: No edema - Results Results: Laboratory Results WBC 4.5 x10^3/uL (4.8-10.8) L 06/21/19 06:08 RBC 2.57 10^6/uL (4.20-5.40) L 06/21/19 06:08 Hgb 7.6 g/dL (12.0-16.0) L 06/21/19 06:08 Hct 24.4 % (37.0-47.0) L 06/21/19 06:08 MCV 94.9 fL (81.0-99.0) 06/21/19 06:08 MCH 29.6 pg (27.0-31.0) 06/21/19 06:08 MCHC 31.1 g/dL (32.0-36.0) L 06/21/19 06:08 RDW 20.2 % (12.0-15.0) H 06/21/19 06:08 Plt Count 27 10^3/uL (130-450) L* 06/21/19 06:08 MPV 11.7 fL (7.9-10.8) H 06/21/19 06:08 Neut # (Auto) Not Reportable 06/21/19 06:08 Lymph # (Auto) Not Reportable 06/21/19 06:08 Dane # (Auto) Not Reportable 06/21/19 06:08 Eos # (Auto) Not Reportable 06/21/19 06:08 Baso # (Auto) Not Reportable 06/21/19 06:08 Absolute Nucleated RBC Not Reportable 06/21/19 06:08 Total Counted 100 06/21/19 06:08 Band Neuts % (Manual) 3 % (0-10) 06/21/19 06:08 Abnorm Lymph % (Manual) 0 % 06/21/19 06:08 Metamyelocytes % 2 % (-0) H 06/21/19 06:08 Myelocytes % 2 % (-0) H 06/21/19 06:08 Nucleated RBC % Not Reportable 06/21/19 06:08 Neutrophils # (Manual) 3.6 10^3/uL (1.5-6.6) 06/21/19 06:08 Lymphocytes # (Manual) 0.6 10^3/uL (1.5-3.5) L 06/21/19 06:08 Monocytes # (Manual) 0.1 10^3/uL (0.0-1.0) 06/21/19 06:08 Eosinophils # (Manual) 0.0 10^3/uL (0-0.7) 06/21/19 06:08 Basophils # (Manual) 0.0 10^3/uL (0-0.1) 06/21/19 06:08 Differential Comment MANUAL DIFFERENTIAL 06/21/19 06:08 Manual Slide Review Indicated 06/20/19 16:58 WBC Morphology 2+ TOXIC GRANULATION (NORMAL) 06/18/19 18:09 Platelet Estimate DECREASED (<130,000) (NORMAL) 06/21/19 06:08 Platelet Morphology NORMAL APPEARANCE (NORMAL) 06/20/19 16:58 RBC Morph Micro Appear 1+ ANISOCYTOSIS (NORMAL) 1+ HYPOCHROMASIA (NORMAL) 1+ OVALOCYTES (NORMAL) 06/19/19 04:40 RBC Morph Micro Appear 1+ ANISOCYTOSIS (NORMAL) 1+ HYPOCHROMASIA (NORMAL) 1+ OVALOCYTES (NORMAL) 06/20/19 04:40 RBC Morph Micro Appear 1+ ANISOCYTOSIS (NORMAL) 1+ HYPOCHROMASIA (NORMAL) 1+ OVALOCYTES (NORMAL) 06/20/19 04:40 RBC Morph Micro Appear 1+ ANISOCYTOSIS (NORMAL) 1+ HYPOCHROMASIA (NORMAL) 1+ OVALOCYTES (NORMAL) 06/20/19 04:40 RBC Morph Micro Appear 1+ ANISOCYTOSIS (NORMAL) 1+ DERRICK CELLS (NORMAL) 1+ MICROCYTOSIS (NORMAL) 1+ HYPOCHROMASIA (NORMAL) 1+ OVALOCYTES (NORMAL) 1+ SCHISTOCYTES (NORMAL) 06/20/19 16:58 RBC Morph Micro Appear 1+ ANISOCYTOSIS (NORMAL) 1+ DERRICK CELLS (NORMAL) 1+ MICROCYTOSIS (NORMAL) 1+ HYPOCHROMASIA (NORMAL) 1+ OVALOCYTES (NORMAL) 1+ SCHISTOCYTES (NORMAL) 06/20/19 16:58 RBC Morph Micro Appear 1+ ANISOCYTOSIS (NORMAL) 1+ DERRICK CELLS (NORMAL) 1+ MICROCYTOSIS (NORMAL) 1+ HYPOCHROMASIA (NORMAL) 1+ OVALOCYTES (NORMAL) 1+ SCHISTOCYTES (NORMAL) 06/20/19 16:58 RBC Morph Micro Appear 1+ ANISOCYTOSIS (NORMAL) 1+ DERRICK CELLS (NORMAL) 1+ MICROCYTOSIS (NORMAL) 1+ HYPOCHROMASIA (NORMAL) 1+ OVALOCYTES (NORMAL) 1+ SCHISTOCYTES (NORMAL) 06/20/19 16:58 RBC Morph Micro Appear 1+ ANISOCYTOSIS (NORMAL) 1+ DERRICK CELLS (NORMAL) 1+ MICROCYTOSIS (NORMAL) 1+ HYPOCHROMASIA (NORMAL) 1+ OVALOCYTES (NORMAL) 1+ SCHISTOCYTES (NORMAL) 06/20/19 16:58 RBC Morph Micro Appear 1+ ANISOCYTOSIS (NORMAL) 1+ DERRICK CELLS (NORMAL) 1+ MICROCYTOSIS (NORMAL) 1+ HYPOCHROMASIA (NORMAL) 1+ OVALOCYTES (NORMAL) 1+ SCHISTOCYTES (NORMAL) 06/20/19 16:58 RBC Morph Micro Appear 1+ ANISOCYTOSIS (NORMAL) 1+ HYPOCHROMASIA (NORMAL) 1+ OVALOCYTES (NORMAL) 06/21/19 06:08 RBC Morph Micro Appear 1+ ANISOCYTOSIS (NORMAL) 1+ HYPOCHROMASIA (NORMAL) 1+ OVALOCYTES (NORMAL) 06/21/19 06:08 RBC Morph Micro Appear 1+ ANISOCYTOSIS (NORMAL) 1+ HYPOCHROMASIA (NORMAL) 1+ OVALOCYTES (NORMAL) 06/21/19 06:08 PT 20.7 secs (9.9-12.6) H 06/19/19 05:50 INR 1.9 (0.8-1.2) H 06/19/19 05:50 Fibrinogen 575 mg/dL (220-496) H 06/19/19 18:47 Bld Gas Analysis Time 0527 06/19/19 05:15 Sample Site RIGHT RADIAL 06/19/19 05:15 ABG pH 7.41 (7.35-7.45) 06/19/19 05:15 ABG pCO2 31 mmHg (34-45) L 06/19/19 05:15 ABG pO2 72 mmHg (80-100) L 06/19/19 05:15 ABG HCO3 18.9 mmol/L (22.0-26.0) L 06/19/19 05:15 ABG Total CO2 19.9 MMOL/L (21.0-29.0) L 06/19/19 05:15 ABG O2 Saturation 94 % (94-98) 06/19/19 05:15 ABG Base Excess -5.0 mmol/L (-2.0-3.0) L 06/19/19 05:15 Ramón Test POSITIVE 06/19/19 05:15 VBG pH 7.379 (7.31-7.41) 06/21/19 06:08 VBG pCO2 25.5 mmHg (41-51) L 06/18/19 18:46 VBG pO2 35.5 mmHg (25-47) 06/18/19 18:46 VBG HCO3 11.7 mmol/L (23-28) L 06/18/19 18:46 VBG Total CO2 12.5 mmol/L (24-29) L 06/18/19 18:46 VBG O2 Saturation 56.2 % (60-80) L 06/18/19 18:46 VBG Base Excess -13.5 mmol/L (-2 - +2) L 06/18/19 18:46 Ionized Calcium 1.07 mmol/L (1.15-1.33) L 06/21/19 06:08 O2 Delivery Device OXYMASK 06/19/19 05:15 O2 Liters/Min 4.00 LPM 06/19/19 05:15 FiO2 0.36 06/19/19 05:15 Sodium 142 mmol/L (135-145) 06/21/19 06:08 Potassium 4.4 mmol/L (3.5-5.0) 06/21/19 06:08 Chloride 120 mmol/L (101-111) H* 06/21/19 06:08 Carbon Dioxide 15 mmol/L (21-32) L 06/21/19 06:08 Anion Gap 7.0 (6-13) 06/21/19 06:08 BUN 28 mg/dL (6-20) H 06/21/19 06:08 Creatinine 0.7 mg/dL (0.4-1.0) 06/21/19 06:08 Estimated GFR (MDRD) 95 (>89) 06/21/19 06:08 Glucose 485 mg/dL (70-100) H 06/21/19 06:08 POC Whole Bld Glucose 429 mg/dL (70 - 100) H 06/21/19 11:51 Glycated Hemoglobin 8.1 % (4.6-6.2) H 06/18/19 18:09 Estim Average Glucose 186 (70-100) H 06/18/19 18:09 Lactic Acid 2.0 mmol/L (0.5-2.2) 06/18/19 22:33 Calcium 7.2 mg/dL (8.5-10.3) L 06/21/19 06:08 Phosphorus 2.3 mg/dL (2.5-4.6) L 06/21/19 06:08 Magnesium 1.6 mg/dL (1.7-2.8) L 06/21/19 06:08 Total Bilirubin 2.4 mg/dL (0.2-1.0) H 06/20/19 04:40 Direct Bilirubin 1.3 mg/dL (0.1-0.5) H 06/20/19 04:40 AST 59 IU/L (10-42) H 06/20/19 04:40 ALT 16 IU/L (10-60) 06/20/19 04:40 Alkaline Phosphatase 803 IU/L (42-121) H 06/20/19 04:40 Total Creatine Kinase 105 IU/L (22-269) 06/18/19 18:09 Total Protein 4.5 g/dL (6.7-8.2) L 06/20/19 04:40 Albumin 1.2 g/dL (3.2-5.5) L 06/21/19 06:08 Globulin 3.4 g/dL (2.1-4.2) 06/20/19 04:40 Albumin/Globulin Ratio 0.3 (1.0-2.2) L 06/18/19 18:09 Lipase 15 U/L (22-51) L 06/18/19 18:09 TSH 2.50 uIU/mL (0.34-5.60) 06/18/19 18:09 Urine Color DARK YELLOW 06/18/19 19:30 Urine Clarity CLEAR (CLEAR) 06/18/19 19:30 Urine pH 5.0 PH (5.0-7.5) 06/18/19 19:30 Ur Specific Vale 1.025 (1.002-1.030) 06/18/19 19:30 Urine Protein TRACE mg/dL (NEGATIVE) 06/18/19 19:30 Urine Glucose (UA) 250 mg/dL (NEGATIVE) H 06/18/19 19:30 Urine Ketones TRACE mg/dL (NEGATIVE) 06/18/19 19:30 Urine Occult Blood NEGATIVE (NEGATIVE) 06/18/19 19:30 Urine Nitrite NEGATIVE (NEGATIVE) 06/18/19 19:30 Urine Bilirubin SMALL (NEGATIVE) H 06/18/19 19:30 Urine Ictotest Cancelled 06/18/19 18:16 Urine Urobilinogen 1 (NORMAL) E.U./dL (NORMAL) 06/18/19 19:30 Ur Leukocyte Esterase NEGATIVE (NEGATIVE) 06/18/19 19:30 Ur Microscopic Review NOT INDICATED 06/18/19 19:30 Urine Culture Comments NOT INDICATED 06/18/19 19:30 Fluid Source PERITONEAL 06/19/19 18:45 Fluid Color YELLOW 06/19/19 18:45 Fluid Clarity CLEAR 06/19/19 18:45 Fluid WBC 1827 /mm^3 06/19/19 18:45 Fluid RBC < 3000 /mm^3 06/19/19 18:45 Fluid Neutrophils % 97 % 06/19/19 18:45 Fluid Lymphocytes % 1 06/19/19 18:45 Fluid Monocytes % 1 % 06/19/19 18:45 Fld Mesothelial Cell % 1 % 06/19/19 18:45 Nasal Screen MRSA (PCR) NEGATIVE (NEGATIVE) 06/18/19 20:10 Last Dose Date UNKNOWN 06/21/19 06:08 Last Dose Time UNKNOWN 06/21/19 06:08 Vancomycin Trough 38.8 ug/mL (10.0-20.0) H* 06/20/19 08:22 Random Vancomycin 16.9 ug/mL 06/21/19 06:08 Salicylates < 6.0 mg/dL 06/18/19 18:09 Urine Opiates Screen NEGATIVE (NEGATIVE) 06/18/19 18:16 Ur Oxycodone Screen POSITIVE (NEGATIVE) H 06/18/19 18:16 Urine Methadone Screen NEGATIVE (NEGATIVE) 06/18/19 18:16 Ur Propoxyphene Screen NEGATIVE (NEGATIVE) 06/18/19 18:16 Acetaminophen < 10 ug/mL (10-30) L 06/18/19 18:09 Ur Barbiturates Screen NEGATIVE (NEGATIVE) 06/18/19 18:16 Ur Tricyclics Screen NEGATIVE (NEGATIVE) 06/18/19 18:16 Ur Phencyclidine Scrn NEGATIVE (NEGATIVE) 06/18/19 18:16 Ur Amphetamine Screen NEGATIVE (NEGATIVE) 06/18/19 18:16 U Methamphetamines Scrn NEGATIVE (NEGATIVE) 06/18/19 18:16 U Benzodiazepines Scrn NEGATIVE (NEGATIVE) 06/18/19 18:16 Urine Cocaine Screen NEGATIVE (NEGATIVE) 06/18/19 18:16 U Cannabinoids Screen NEGATIVE (NEGATIVE) 06/18/19 18:16 Ethyl Alcohol < 5.0 mg/dL 06/18/19 18:09 Serum Ketones NEGATIVE (NEGATIVE) 06/19/19 18:36 Blood Type A NEGATIVE 06/19/19 05:50 Antibody Screen NEGATIVE 06/19/19 05:50 Crossmatch IS Only See Detail 06/19/19 05:50 Sepsis Event Note (H) - Evaluation Current Stage of Sepsis: Sepsis Possible source of Sepsis: positive: Pulmonary - Sepsis Criteria Sepsis Criteria: Recorded Heart Rate greater than 90 bpm, Recorded Respiratory Rate greater than 20, Respiratory: Increasing oxygen requirements, WBC count greater than 12,000 or less than 4000, SBP drop more than 40mHg, MAP less than 65 mmHg, SBP less than 90 mmHg, Metabolic: lactate > 2 mmol/L, Hepatic: Bilirubin greater than 2mg/dl
[2019-06-21] MEDS ORDERED: INSULIN ASPART 300 UNIT/3 ML PEN SUBQ ONE ×2 (17:05→20:28)
[2019-06-21] MEDS: levoFLOXacin 750 MG/150 ML 750 MG/150 ML BAG IV SCH (17:18)
[2019-06-21 18:15] LABS: HGB - HEMOGLOBIN 7.2 g/dL (12.0-16.0); MEAN CORPUSCULAR HEMOGLOBIN 29.3 pg (27.0-31.0); MEAN CORPUSCULAR HGB CONC 30.4 g/dL (32.0-36.0); MEAN CORPUSCULAR VOLUME 96.3 fL (81.0-99.0); MEAN PLATELET VOLUME 9.8 fL (7.9-10.8); RED BLOOD COUNT 2.46 10^6/uL (4.20-5.40); WHITE BLOOD COUNT 4.3 x10^3/uL (4.8-10.8)
[2019-06-21] MEDS: INSULIN GLARGINE 300 UNIT/3 ML PEN SUBQ SCH (20:41)
[2019-06-22] MEDS: MORPHINE 2 MG/ML CARPUJECT IVP PRN ×5 (00:08→22:56)
[2019-06-22] MEDS: SODIUM CHLORIDE FLUSH 0.9% 10 ML SYRINGE IVP PRN ×4 (00:09→07:10)
[2019-06-22] MEDS: CHLORHEXIDINE GLUCONATE 15 ML UDC PO SCH ×3 (00:11→20:42)
[2019-06-22] MEDS: LORazepam 2 MG/ML VIAL IVP PRN ×4 (00:30→18:49)
[2019-06-22] MEDS: MORPHINE SOL 10 MG/0.5 ML SYRINGE PO PRN ×2 (03:33→11:31)
[2019-06-22] MEDS: D5NS W/20 MEQ KCL 1,000 ML IV SCH (04:14)
[2019-06-22 05:06] LABS: BASOPHILS % (AUTO) 0.4 %; EOSINOPHILS % (AUTO) 0.7 %; HGB - HEMOGLOBIN 7.3 g/dL (12.0-16.0); LYMPHOCYTES % (AUTO) 20.2 %; MEAN CORPUSCULAR HEMOGLOBIN 29.2 pg (27.0-31.0); MEAN CORPUSCULAR HGB CONC 30.3 g/dL (32.0-36.0); MEAN CORPUSCULAR VOLUME 96.4 fL (81.0-99.0); MEAN PLATELET VOLUME 11.2 fL (7.9-10.8); MONOCYTES % (AUTO) 10.5 %; NEUTROPHILS % (AUTO) 67.1 %; WHITE BLOOD COUNT 2.7 x10^3/uL (4.8-10.8)
[2019-06-22 05:07] LABS: PLT - PLATELET COUNT 16 10^3/uL (130-450)
[2019-06-22 05:09] LABS: ABNORMAL LYMPHS % (MANUAL) 0 %; BAND NEUTROPHILS % (MANUAL) 0 %; CALCIUM 7.3 mg/dL (8.5-10.3); CREATININE 0.7 mg/dL (0.4-1.0)
[2019-06-22] MEDS ORDERED: INSULIN REGULAR HUMAN 100 UNIT in SODIUM CHLORIDE 0.9% 100ML 99 ML IV ONE (05:23)
[2019-06-22 05:43] LABS: LYMPHOCYTES # (MANUAL) 0.8 10^3/uL (1.5-3.5); LYMPHOCYTES % (MANUAL) 31 %; MONOCYTES # (MANUAL) 0.1 10^3/uL (0.0-1.0)
[2019-06-22 05:44] LABS: PLATELET ESTIMATE, MANUAL DECREASED (<130,000) (NORMAL); PLATELET MORPHOLOGY NORMAL APPEARANCE (NORMAL); RBC MORPHOLOGY (MULTIPLE) 1+ HYPOCHROMASIA (NORMAL)
[2019-06-22 05:45] LABS: DIFFERENTIAL COMMENT MANUAL DIFFERENTIAL
[2019-06-22] MEDS: SODIUM CHLORIDE 0.9% 1,000 ML IV SCH ×3 (05:50→20:41)
[2019-06-22] MEDS ORDERED: INSULIN REGULAR HUMAN 300 UNIT/3 ML VIAL ONE (05:56)
[2019-06-22] MEDS: PANTOPRAZOLE 40 MG VIAL IVP SCH (07:10)
[2019-06-22 07:15] LABS: VBG PH 7.343 (7.31-7.41)
[2019-06-22] MEDS: SODIUM CHLORIDE FLUSH 0.9% 10 ML SYRINGE IVP SCH ×3 (08:35→23:48)
[2019-06-22] MEDS: INSULIN ASPART 300 UNIT/3 ML PEN SUBQ SCH ×2 (08:35→12:36)
[2019-06-22] MEDS: fentaNYL 50 MCG PATCH TOP SCH (11:14)
[2019-06-22] MEDS: fentaNYL 25 MCG PATCH TOP SCH (11:14)
[2019-06-22] MEDS: MIN OIL/DIMETHICON/COCONUT OIL 92 GM TUBE TOP PRN ×2 (12:00→19:40)
[2019-06-22] MEDS: ACETAMINOPHEN 1,000 MG/100 ML 100 ML IV PRN (15:11)
--- NOTE | 2019-06-22 16:08 | XRAY Report ---
Reason: Fever, cough, eval for pneumonia Procedure Date: 06/22/2019 Accession Number: [id number] / [id number] Procedure: XR - Chest 1 View X-Ray CPT Code: 59140 Final Report FULL RESULT: EXAM: CHEST RADIOGRAPHY EXAM DATE: 06/22/2019 03:12 PM. CLINICAL HISTORY: Fever, cough, eval for pneumonia. COMPARISON: CHEST 1 VIEW 06/18/2019 6:23 PM. TECHNIQUE: 1 view. FINDINGS: Lungs/Pleura: Increased right-sided pulmonary consolidation, now near diffuse, with minimal aeration of the right apex. Probable moderate size right pleural effusion. No left-sided pulmonary opacities. No pneumothorax. Mediastinum: Stable heart size and mediastinum. Other: Stable position of right chest port catheter. IMPRESSION: 1. Near diffuse right-sided pulmonary consolidation could reflect pneumonia or other pulmonary process. No left-sided opacity. 2. Probable moderate sized right pleural effusion. RADIA
--- NOTE | 2019-06-22 16:29 | PROVIDER PROGRESS NOTE ---
Assessment/Plan - Problem List (1) Pneumonia Assessment/Plan: Fever spike, and a new CXR shows worsening R sided infiltrate with poss pleural effusion. Her cough is less productive today. She is not hypoxic however. Will obtain blood cx. Will add Unasyn for a poss aspiration pneumonia vs HCAP. She cannot participate in Acapella flutter valve use for better pulmonary toilet. She cannot swallow pills to get Mucinex. Will order naso-tracheal suction prn. This change in her clinical picture makes her prognosis poor, she is in critical condition. As of yesterday, the new plan is DNI and DNR. (2) Bacteremia due to Streptococcus pneumoniae Assessment/Plan: Continue iv antibx. Only the first day's cx are neg, others neg so far (3) DM type 1 (diabetes mellitus, type 1) Assessment/Plan: iv D5, Insuin ss and occais drip needed (4) Colon cancer metastasized to liver Assessment/Plan: Prognosis poor (5) Malignant ascites Assessment/Plan: Getting 1.5L of ascites removed daily by RN, pain is less (6) Severe protein-calorie malnutrition Assessment/Plan: When more alert, will need better diet (7) Anemia Assessment/Plan: Follow CBC, transfuse when <7 again. (9) History of anxiety Assessment/Plan: On prn Ativan (10) Personality disorder Assessment/Plan: As per previous notes (11) Chronic pain due to neoplasm Assessment/Plan: Pain is under better control, but is causing excessive sedation. (12) Dehydration Assessment/Plan: Resolved (13) Severe sepsis Assessment/Plan: Resolved (14) DKA (diabetic ketoacidoses) Qualifiers: Diabetes mellitus type: type 1 Assessment/Plan: Resolved (15) Hypotension Assessment/Plan: Resolved - Current Meds Current Meds: Current Medications Generic Name Dose Route Start Last Admin Trade Name Freq PRN Reason Stop Dose Admin Chlorhexidine Gluconate 15 ml 06/21/19 23:00 06/22/19 08:35 Peridex PO 15 ml BID AIRAM Administration Fentanyl 1 patch 06/19/19 11:00 06/22/19 11:14 Duragesic TOP 1 patch Q72H AIRAM Administration Fentanyl 1 patch 06/19/19 11:00 06/22/19 11:14 Duragesic TOP 1 patch Q72H AIRAM Administration Guaifenesin/Codeine Phosphate 5 ml 06/20/19 19:54 06/21/19 03:50 Robitussin Ac PO 5 ml Q6HR PRN Administration Cough Sodium Chloride 500 mls @ 0 mls/hr 06/20/19 20:42 06/21/19 04:15 Normal Saline 0.9% IV 20 mls/hr Q24H PRN Infusion TKO RATE TKO Levofloxacin 750 mg in 150 mls @ 100 mls/hr 06/21/19 17:30 06/21/19 18:53 Levaquin 750 Mg/150 Ml IV Infused Q24H AIRAM Infusion Insulin Human Regular 100 unit 100 mls @ 3 mls/hr 06/22/19 05:23 06/22/19 15:08 / Sodium Chloride IV 06/23/19 14:42 0 unit/hr .[id number] ONE 0 mls/hr Titration Protocol 3 UNIT/HR Sodium Chloride 1,000 mls @ 150 mls/hr 06/22/19 06:00 06/22/19 12:35 Normal Saline 0.9% IV 150 mls/hr .[id number] AIRAM Administration Acetaminophen 100 mls @ 400 mls/hr 06/22/19 14:47 06/22/19 16:23 Ofirmev IV Infused Q6HR PRN Infusion Pain or Fever > 38C (100.4F) Insulin Aspart 3 - 11 unit 06/21/19 09:00 06/22/19 12:36 Novolog SUBQ Not Given 0800,1200,1700,2100 [facility] Protocol Insulin Glargine 14 unit 06/21/19 21:00 06/21/19 20:41 Lantus Solostar SUBQ 14 unit QPM AIRAM Administration Lorazepam 0.5 mg 06/20/19 08:06 06/22/19 13:50 Ativan Inj (Vial) IVP 0.5 mg Q3H PRN Administration Restlessness Mineral Oil 1 applic 06/19/19 19:23 06/22/19 12:00 Cavilon TOP 1 applic PRN PRN Administration Skin Care Morphine Sulfate 10 mg 06/20/19 12:05 06/22/19 11:31 Roxanol PO 10 mg Q4HR PRN Administration PAIN Morphine Sulfate 2 mg 06/21/19 08:51 06/22/19 16:00 Morphine (Carpuject) IVP 2 mg Q3HR PRN Administration PAIN Pantoprazole Sodium 40 mg 06/19/19 07:00 06/22/19 07:10 Protonix IVP 40 mg QDAC AIRAM Administration Sodium Chloride 10 ml 06/19/19 01:00 06/22/19 08:35 Normal Saline Flush 0.9% IVP 10 ml 0100,0900,1700 AIRAM Administration Sodium Chloride 10 ml 06/18/19 19:26 06/22/19 07:10 Normal Saline Flush 0.9% IVP 10 ml PRN PRN Administration NEEDED PER PROVIDER ORDERS Sodium Chloride 20 ml 06/20/19 20:42 06/21/19 05:40 Normal Saline Flush 0.9% IVP 20 ml PRN PRN Administration After Blood Draw - Lab Result Fish Bone Diagrams: 06/25/19 04:44 06/25/19 04:44 - Additional Planning My Orders: My Active Orders 06/21/19 17:30 levoFLOXacin 750 MG/150 ML [Levaquin 750 mg/150 ml] 750 mg in 150 ml IV Q24H 06/21/19 21:00 Insulin Glargine [Lantus Solostar] 14 unit SUBQ QPM 06/22/19 14:45 Suctioning - Nasal Tracheal [RC] PRN 06/22/19 14:47 Acetaminophen 1,000 mg/100 ml [Ofirmev] 100 ml IV Q6HR 06/22/19 15:25 CULTURE, BLOOD #1 [RM] Stat 06/22/19 18:00 Ampicillin/Sulbactam [Unasyn] 3 gm Sodium Chloride 0.9% Minibag [Normal Saline 0.9% Minibag] 100 ml IV Q6HR Subjective - Subjective Patient Reports: Other (MOaning, few words spoken) Nursing Reports: Other (Only sips OJ) Objective Vital Signs: Vital Signs - 24 hr 06/21/19 06/21/19 06/21/19 17:00 18:00 19:00 Temperature 37.6 C H 37.5 C Heart Rate [ 126 H 125 H 130 H Monitoring electrodes] Respiratory 25 H 18 24 Rate Blood Pressure 123/88 H 114/81 H 117/84 H [Left Brachial artery] O2 Saturation 96 95 100 06/21/19 06/21/19 06/21/19 20:00 21:00 22:00 Temperature 37.4 C Heart Rate [ 129 H 137 H 129 H Monitoring electrodes] Respiratory 23 27 H 23 Rate Blood Pressure 118/80 115/92 H 112/77 [Left Brachial artery] O2 Saturation 95 98 94 06/21/19 06/22/19 06/22/19 23:00 00:00 01:00 Temperature 37.3 C Heart Rate [ 123 H 125 H 124 H Monitoring electrodes] Respiratory 23 25 H 21 Rate Blood Pressure 113/77 105/79 108/74 [Left Brachial artery] O2 Saturation 96 100 99 06/22/19 06/22/19 06/22/19 02:00 03:00 04:00 Temperature Heart Rate [ 122 H 120 H 120 H Monitoring electrodes] Respiratory 22 20 20 Rate Blood Pressure 95/68 98/68 102/69 [Left Brachial artery] O2 Saturation 100 100 100 06/22/19 06/22/19 06/22/19 05:00 06:00 07:00 Temperature Heart Rate [ 119 H 120 H 122 H Monitoring electrodes] Respiratory 21 19 21 Rate Blood Pressure 99/68 113/77 127/79 [Left Brachial artery] O2 Saturation 100 100 100 06/22/19 06/22/19 06/22/19 08:00 09:00 10:00 Temperature 37.2 C Heart Rate [ 122 H 122 H 126 H Monitoring electrodes] Respiratory 21 21 20 Rate Blood Pressure 105/78 109/78 117/82 H [Left Brachial artery] O2 Saturation 100 100 100 06/22/19 06/22/19 06/22/19 11:00 12:00 13:00 Temperature 37.7 C H Heart Rate [ 128 H 127 H 140 H Monitoring electrodes] Respiratory 24 21 29 H Rate Blood Pressure 116/77 103/76 129/92 H [Left Brachial artery] O2 Saturation 95 100 95 06/22/19 06/22/19 06/22/19 14:00 15:00 16:00 Temperature 37.7 C H 38 C H 38.1 C H Heart Rate [ 144 H 135 H 140 H Monitoring electrodes] Respiratory 29 H 22 31 H Rate Blood Pressure 134/93 H 136/101 H 129/94 H [Left Brachial artery] O2 Saturation 93 100 99 Oxygen O2 Source Room air I&O (Last 24 Hrs): Intake and Output Totals x24h 06/20/19 06/21/19 06/22/19 23:59 23:59 23:59 Intake Total 7192.735 5760 2177.10 Output Total 0008 3986 3358 Balance 2632.483 1611 -1178.90 General: Moderate distress, Other (Poor dentitin, dry mucosa, wide set eyes) HEENT: Other (Dry) Neck: Supple, No JVD Neuro: Non Focal, Other (Sedated, from morphine dose) Cardiovascular: Regular rate, No murmurs Respiratory: Other (pper airway rhonchi) Abdomen: Soft, Other (Colostomy and bandaged peritoneal tube in place) Extremities: No edema - Results Results: Laboratory Results WBC 2.7 x10^3/uL (4.8-10.8) L 06/22/19 04:42 RBC 2.50 10^6/uL (4.20-5.40) L 06/22/19 04:42 Hgb 7.3 g/dL (12.0-16.0) L 06/22/19 04:42 Hct 24.1 % (37.0-47.0) L 06/22/19 04:42 MCV 96.4 fL (81.0-99.0) 06/22/19 04:42 MCH 29.2 pg (27.0-31.0) 06/22/19 04:42 MCHC 30.3 g/dL (32.0-36.0) L 06/22/19 04:42 RDW 20.0 % (12.0-15.0) H 06/22/19 04:42 Plt Count 16 10^3/uL (130-450) L* 06/22/19 04:42 MPV 11.2 fL (7.9-10.8) H 06/22/19 04:42 Neut # (Auto) Not Reportable 06/22/19 04:42 Lymph # (Auto) Not Reportable 06/22/19 04:42 Major # (Auto) Not Reportable 06/22/19 04:42 Eos # (Auto) Not Reportable 06/22/19 04:42 Baso # (Auto) Not Reportable 06/22/19 04:42 Absolute Nucleated RBC Not Reportable 06/22/19 04:42 Total Counted 100 06/22/19 04:42 Band Neuts % (Manual) 0 % (0-10) 06/22/19 04:42 Abnorm Lymph % (Manual) 0 % 06/22/19 04:42 Metamyelocytes % 2 % (-0) H 06/21/19 06:08 Myelocytes % 2 % (-0) H 06/21/19 06:08 Nucleated RBC % Not Reportable 06/22/19 04:42 Neutrophils # (Manual) 1.7 10^3/uL (1.5-6.6) 06/22/19 04:42 Lymphocytes # (Manual) 0.8 10^3/uL (1.5-3.5) L 06/22/19 04:42 Monocytes # (Manual) 0.1 10^3/uL (0.0-1.0) 06/22/19 04:42 Eosinophils # (Manual) 0.0 10^3/uL (0-0.7) 06/22/19 04:42 Basophils # (Manual) 0.0 10^3/uL (0-0.1) 06/22/19 04:42 Differential Comment MANUAL DIFFERENTIAL 06/22/19 04:42 Manual Slide Review Indicated 06/20/19 16:58 WBC Morphology NORMAL APPEARANCE (NORMAL) 06/22/19 04:42 Platelet Estimate DECREASED (<130,000) (NORMAL) 06/22/19 04:42 Platelet Morphology NORMAL APPEARANCE (NORMAL) 06/22/19 04:42 RBC Morph Micro Appear 1+ ANISOCYTOSIS (NORMAL) 1+ HYPOCHROMASIA (NORMAL) 1+ OVALOCYTES (NORMAL) 06/20/19 04:40 RBC Morph Micro Appear 1+ ANISOCYTOSIS (NORMAL) 1+ HYPOCHROMASIA (NORMAL) 1+ OVALOCYTES (NORMAL) 06/20/19 04:40 RBC Morph Micro Appear 1+ ANISOCYTOSIS (NORMAL) 1+ HYPOCHROMASIA (NORMAL) 1+ OVALOCYTES (NORMAL) 06/20/19 04:40 RBC Morph Micro Appear 1+ ANISOCYTOSIS (NORMAL) 1+ DERRICK CELLS (NORMAL) 1+ MICROCYTOSIS (NORMAL) 1+ HYPOCHROMASIA (NORMAL) 1+ OVALOCYTES (NORMAL) 1+ SCHISTOCYTES (NORMAL) 06/20/19 16:58 RBC Morph Micro Appear 1+ ANISOCYTOSIS (NORMAL) 1+ DERRICK CELLS (NORMAL) 1+ MICROCYTOSIS (NORMAL) 1+ HYPOCHROMASIA (NORMAL) 1+ OVALOCYTES (NORMAL) 1+ SCHISTOCYTES (NORMAL) 06/20/19 16:58 RBC Morph Micro Appear 1+ ANISOCYTOSIS (NORMAL) 1+ DERRICK CELLS (NORMAL) 1+ MICROCYTOSIS (NORMAL) 1+ HYPOCHROMASIA (NORMAL) 1+ OVALOCYTES (NORMAL) 1+ SCHISTOCYTES (NORMAL) 06/20/19 16:58 RBC Morph Micro Appear 1+ ANISOCYTOSIS (NORMAL) 1+ DERRICK CELLS (NORMAL) 1+ MICROCYTOSIS (NORMAL) 1+ HYPOCHROMASIA (NORMAL) 1+ OVALOCYTES (NORMAL) 1+ SCHISTOCYTES (NORMAL) 06/20/19 16:58 RBC Morph Micro Appear 1+ ANISOCYTOSIS (NORMAL) 1+ DERRICK CELLS (NORMAL) 1+ MICROCYTOSIS (NORMAL) 1+ HYPOCHROMASIA (NORMAL) 1+ OVALOCYTES (NORMAL) 1+ SCHISTOCYTES (NORMAL) 06/20/19 16:58 RBC Morph Micro Appear 1+ ANISOCYTOSIS (NORMAL) 1+ DERRICK CELLS (NORMAL) 1+ MICROCYTOSIS (NORMAL) 1+ HYPOCHROMASIA (NORMAL) 1+ OVALOCYTES (NORMAL) 1+ SCHISTOCYTES (NORMAL) 06/20/19 16:58 RBC Morph Micro Appear 1+ ANISOCYTOSIS (NORMAL) 1+ HYPOCHROMASIA (NORMAL) 1+ OVALOCYTES (NORMAL) 06/21/19 06:08 RBC Morph Micro Appear 1+ ANISOCYTOSIS (NORMAL) 1+ HYPOCHROMASIA (NORMAL) 1+ OVALOCYTES (NORMAL) 06/21/19 06:08 RBC Morph Micro Appear 1+ ANISOCYTOSIS (NORMAL) 1+ HYPOCHROMASIA (NORMAL) 1+ OVALOCYTES (NORMAL) 06/21/19 06:08 RBC Morph Micro Appear 1+ HYPOCHROMASIA (NORMAL) 06/22/19 04:42 PT 20.7 secs (9.9-12.6) H 06/19/19 05:50 INR 1.9 (0.8-1.2) H 06/19/19 05:50 Fibrinogen 575 mg/dL (220-496) H 06/19/19 18:47 Bld Gas Analysis Time 0506/19/19 05:15 Sample Site RIGHT RADIAL 06/19/19 05:15 ABG pH 7.41 (7.35-7.45) 06/19/19 05:15 ABG pCO2 31 mmHg (34-45) L 06/19/19 05:15 ABG pO2 72 mmHg (80-100) L 06/19/19 05:15 ABG HCO3 18.9 mmol/L (22.0-26.0) L 06/19/19 05:15 ABG Total CO2 19.9 MMOL/L (21.0-29.0) L 06/19/19 05:15 ABG O2 Saturation 94 % (94-98) 06/19/19 05:15 ABG Base Excess -5.0 mmol/L (-2.0-3.0) L 06/19/19 05:15 Ramón Test POSITIVE 06/19/19 05:15 VBG pH 7.343 (7.31-7.41) 06/22/19 07:00 VBG pCO2 25.5 mmHg (41-51) L 06/18/19 18:46 VBG pO2 35.5 mmHg (25-47) 06/18/19 18:46 VBG HCO3 11.7 mmol/L (23-28) L 06/18/19 18:46 VBG Total CO2 12.5 mmol/L (24-29) L 06/18/19 18:46 VBG O2 Saturation 56.2 % (60-80) L 06/18/19 18:46 VBG Base Excess -13.5 mmol/L (-2 - +2) L 06/18/19 18:46 Ionized Calcium 1.14 mmol/L (1.15-1.33) L 06/22/19 07:00 O2 Delivery Device OXYMASK 06/19/19 05:15 O2 Liters/Min 4.00 LPM 06/19/19 05:15 FiO2 0.36 06/19/19 05:15 Sodium 146 mmol/L (135-145) H 06/22/19 04:42 Potassium 4.3 mmol/L (3.5-5.0) 06/22/19 04:42 Chloride 126 mmol/L (101-111) H* 06/22/19 04:42 Carbon Dioxide 15 mmol/L (21-32) L 06/22/19 04:42 Anion Gap 5.0 (6-13) L 06/22/19 04:42 BUN 19 mg/dL (6-20) 06/22/19 04:42 Creatinine 0.7 mg/dL (0.4-1.0) 06/22/19 04:42 Estimated GFR (MDRD) 95 (>89) 06/22/19 04:42 Glucose 524 mg/dL (70-100) H* 06/22/19 04:42 POC Whole Bld Glucose 163 mg/dL (70 - 100) H 06/22/19 14:45 Glycated Hemoglobin 8.1 % (4.6-6.2) H 06/18/19 18:09 Estim Average Glucose 186 (70-100) H 06/18/19 18:09 Lactic Acid 2.0 mmol/L (0.5-2.2) 06/18/19 22:33 Calcium 7.3 mg/dL (8.5-10.3) L 06/22/19 04:42 Phosphorus 2.3 mg/dL (2.5-4.6) L 06/21/19 06:08 Magnesium 1.6 mg/dL (1.7-2.8) L 06/21/19 06:08 Total Bilirubin 2.4 mg/dL (0.2-1.0) H 06/20/19 04:40 Direct Bilirubin 1.3 mg/dL (0.1-0.5) H 06/20/19 04:40 AST 59 IU/L (10-42) H 06/20/19 04:40 ALT 16 IU/L (10-60) 06/20/19 04:40 Alkaline Phosphatase 803 IU/L (42-121) H 06/20/19 04:40 Total Creatine Kinase 105 IU/L (22-269) 06/18/19 18:09 Total Protein 4.5 g/dL (6.7-8.2) L 06/20/19 04:40 Albumin 1.2 g/dL (3.2-5.5) L 06/22/19 04:42 Globulin 3.4 g/dL (2.1-4.2) 06/20/19 04:40 Albumin/Globulin Ratio 0.3 (1.0-2.2) L 06/18/19 18:09 Lipase 15 U/L (22-51) L 06/18/19 18:09 TSH 2.50 uIU/mL (0.34-5.60) 06/18/19 18:09 Urine Color DARK YELLOW 06/18/19 19:30 Urine Clarity CLEAR (CLEAR) 06/18/19 19:30 Urine pH 5.0 PH (5.0-7.5) 06/18/19 19:30 Ur Specific Julian 1.025 (1.002-1.030) 06/18/19 19:30 Urine Protein TRACE mg/dL (NEGATIVE) 06/18/19 19:30 Urine Glucose (UA) 250 mg/dL (NEGATIVE) H 06/18/19 19:30 Urine Ketones TRACE mg/dL (NEGATIVE) 06/18/19 19:30 Urine Occult Blood NEGATIVE (NEGATIVE) 06/18/19 19:30 Urine Nitrite NEGATIVE (NEGATIVE) 06/18/19 19:30 Urine Bilirubin SMALL (NEGATIVE) H 06/18/19 19:30 Urine Ictotest Cancelled 06/18/19 18:16 Urine Urobilinogen 1 (NORMAL) E.U./dL (NORMAL) 06/18/19 19:30 Ur Leukocyte Esterase NEGATIVE (NEGATIVE) 06/18/19 19:30 Ur Microscopic Review NOT INDICATED 06/18/19 19:30 Urine Culture Comments NOT INDICATED 06/18/19 19:30 Fluid Source PERITONEAL 06/19/19 18:45 Fluid Color YELLOW 06/19/19 18:45 Fluid Clarity CLEAR 06/19/19 18:45 Fluid WBC 1827 /mm^3 06/19/19 18:45 Fluid RBC < 3000 /mm^3 06/19/19 18:45 Fluid Neutrophils % 97 % 06/19/19 18:45 Fluid Lymphocytes % 1 06/19/19 18:45 Fluid Monocytes % 1 % 06/19/19 18:45 Fld Mesothelial Cell % 1 % 06/19/19 18:45 Nasal Screen MRSA (PCR) NEGATIVE (NEGATIVE) 06/18/19 20:10 Last Dose Date UNKNOWN 06/21/19 06:08 Last Dose Time UNKNOWN 06/21/19 06:08 Vancomycin Trough 38.8 ug/mL (10.0-20.0) H* 06/20/19 08:22 Random Vancomycin 16.9 ug/mL 06/21/19 06:08 Salicylates < 6.0 mg/dL 06/18/19 18:09 Urine Opiates Screen NEGATIVE (NEGATIVE) 06/18/19 18:16 Ur Oxycodone Screen POSITIVE (NEGATIVE) H 06/18/19 18:16 Urine Methadone Screen NEGATIVE (NEGATIVE) 06/18/19 18:16 Ur Propoxyphene Screen NEGATIVE (NEGATIVE) 06/18/19 18:16 Acetaminophen < 10 ug/mL (10-30) L 06/18/19 18:09 Ur Barbiturates Screen NEGATIVE (NEGATIVE) 06/18/19 18:16 Ur Tricyclics Screen NEGATIVE (NEGATIVE) 06/18/19 18:16 Ur Phencyclidine Scrn NEGATIVE (NEGATIVE) 06/18/19 18:16 Ur Amphetamine Screen NEGATIVE (NEGATIVE) 06/18/19 18:16 U Methamphetamines Scrn NEGATIVE (NEGATIVE) 06/18/19 18:16 U Benzodiazepines Scrn NEGATIVE (NEGATIVE) 06/18/19 18:16 Urine Cocaine Screen NEGATIVE (NEGATIVE) 06/18/19 18:16 U Cannabinoids Screen NEGATIVE (NEGATIVE) 06/18/19 18:16 Ethyl Alcohol < 5.0 mg/dL 06/18/19 18:09 Serum Ketones NEGATIVE (NEGATIVE) 06/19/19 18:36 Blood Type A NEGATIVE 06/19/19 05:50 Antibody Screen NEGATIVE 06/19/19 05:50 Crossmatch IS Only See Detail 06/19/19 05:50 Sepsis Event Note (H) - Evaluation Current Stage of Sepsis: Sepsis Possible source of Sepsis: positive: Pulmonary - Sepsis Criteria Sepsis Criteria: Recorded Heart Rate greater than 90 bpm, Recorded Respiratory Rate greater than 20, Respiratory: Increasing oxygen requirements, WBC count greater than 12,000 or less than 4000, SBP drop more than 40mHg, MAP less than 65 mmHg, SBP less than 90 mmHg, Metabolic: lactate > 2 mmol/L, Hepatic: Bili harry greater than 2mg/dl
[2019-06-22] MEDS: levoFLOXacin 750 MG/150 ML 750 MG/150 ML BAG IV SCH (17:08)
[2019-06-22] MEDS: AMPICILLIN/SULBACTAM 3 GM in SODIUM CHLORIDE 0.9% MINIBAG 100 ML IV SCH ×2 (18:11→23:46)
[2019-06-22] MEDS: INSULIN REGULAR HUMAN 300 UNIT/3 ML VIAL SUBQ SCH ×2 (18:15→23:54)
[2019-06-22] MEDS: INSULIN GLARGINE 300 UNIT/3 ML PEN SUBQ SCH (20:49)
[2019-06-23] MEDS: LORazepam 2 MG/ML VIAL IVP PRN ×4 (00:47→21:04)
[2019-06-23] MEDS: MORPHINE 2 MG/ML CARPUJECT IVP PRN ×2 (03:04→17:45)
[2019-06-23] MEDS: SODIUM CHLORIDE 0.9% 1,000 ML IV SCH (03:56)
[2019-06-23 05:31] LABS: BASOPHILS % (AUTO) 0.3 %; EOSINOPHILS % (AUTO) 4.1 %; HGB - HEMOGLOBIN 7.2 g/dL (12.0-16.0); LYMPHOCYTES % (AUTO) 31.6 %; MEAN CORPUSCULAR HEMOGLOBIN 29.3 pg (27.0-31.0); MEAN CORPUSCULAR HGB CONC 29.9 g/dL (32.0-36.0); MONOCYTES % (AUTO) 9.2 %; NEUTROPHILS % (AUTO) 53.8 %; RED BLOOD COUNT 2.46 10^6/uL (4.20-5.40); RED CELL DISTRIBUTION WIDTH 20.1 % (12.0-15.0); WHITE BLOOD COUNT 2.9 x10^3/uL (4.8-10.8)
[2019-06-23 05:36] LABS: PLT - PLATELET COUNT 16 10^3/uL (130-450)
[2019-06-23 05:37] LABS: ABNORMAL LYMPHS % (MANUAL) 0 %
[2019-06-23 05:56] LABS: CALCIUM 7.2 mg/dL (8.5-10.3); CREATININE 0.7 mg/dL (0.4-1.0); MAGNESIUM 1.6 mg/dL (1.7-2.8); PHOSPHORUS 1.2 mg/dL (2.5-4.6)
[2019-06-23 06:03] LABS: VBG PH 7.33 (7.31-7.41)
[2019-06-23 06:09] LABS: BAND NEUTROPHILS % (MANUAL) 1 %; EOSINOPHILS # (MANUAL) 0.1 10^3/uL (0-0.7); LYMPHOCYTES % (MANUAL) 33 %; MONOCYTES # (MANUAL) 0.3 10^3/uL (0.0-1.0)
[2019-06-23 06:11] LABS: DIFFERENTIAL COMMENT MANUAL DIFFERENTIAL; PLATELET ESTIMATE, MANUAL DECREASED (<130,000) (NORMAL); PLATELET MORPHOLOGY NORMAL APPEARANCE (NORMAL)
[2019-06-23] MEDS: INSULIN REGULAR HUMAN 300 UNIT/3 ML VIAL SUBQ SCH ×3 (06:14→17:52)
[2019-06-23] MEDS: AMPICILLIN/SULBACTAM 3 GM in SODIUM CHLORIDE 0.9% MINIBAG 100 ML IV SCH ×3 (06:19→18:32)
[2019-06-23] MEDS ORDERED: CALCIUM GLUCONATE 1,000 MG in SODIUM CHLORIDE 0.9% 50 ML IV ONE (06:27)
[2019-06-23] MEDS: PANTOPRAZOLE 40 MG VIAL IVP SCH (06:31)
[2019-06-23] MEDS: POTASSIUM CHLOR 20 MEQ/100 ML 20 MEQ/100 ML BAG IV SCH ×2 (06:58→07:58)
[2019-06-23] MEDS ORDERED: DEXTROSE 5%-0.45% NACL 1,000 ML IV SCH (07:00)
[2019-06-23] MEDS ORDERED: MAGNESIUM SULFATE 2 GRAM 2 GM/50 ML BAG IV ONE (07:00)
[2019-06-23] MEDS: CHLORHEXIDINE GLUCONATE 15 ML UDC PO SCH ×2 (07:59→20:34)
[2019-06-23] MEDS: SODIUM CHLORIDE FLUSH 0.9% 10 ML SYRINGE IVP SCH ×2 (07:59→16:56)
[2019-06-23] MEDS: DEXTROSE 5% 1,000 ML IV SCH ×2 (08:56→20:33)
[2019-06-23] MEDS ORDERED: POTASSIUM PHOSPHATE 21 MMOL in SODIUM CHLORIDE 0.9% 250 ML IV ONE (09:00)
[2019-06-23] MEDS: MORPHINE SOL 10 MG/0.5 ML SYRINGE PO PRN (10:05)
[2019-06-23] MEDS: ACETAMINOPHEN 1,000 MG/100 ML 100 ML IV PRN (11:15)
--- NOTE | 2019-06-23 15:07 | PROVIDER PROGRESS NOTE ---
Assessment/Plan - Problem List (1) Pneumonia Assessment/Plan: I spoke to the today about her worsening pneumonia by chest x-ray done yesterday. Continue with same antibiotics and pulmonary toilet (2) Bacteremia due to Streptococcus pneumoniae Assessment/Plan: On iv Levaquin (3) DM type 1 (diabetes mellitus, type 1) Assessment/Plan: Today her serum glucose was low, she is also hyponatremic and taking in very little free water orally. Will start IV D5W. (4) Colon cancer metastasized to liver Assessment/Plan: Unchanged status (5) Malignant ascites Assessment/Plan: She gets her 1.5L removed daily, without any issues and has better pain control. (6) Severe protein-calorie malnutrition Assessment/Plan: A diet has been ordered. She is taking OJ, chocolate milk. The hand engraver saw the patient last week and will ask to reassess. (7) Anemia Assessment/Plan: Stable after blood transfused at admission (8) Thrombocytopenia Assessment/Plan: Yestrday's low plt count of 16K has plateaued at 16K today. No signs of bleeding. Will watch CBC daily, transfuse plts if <10 or if bleeding noted. (9) History of anxiety Assessment/Plan: her meds continue prn (10) Personality disorder Assessment/Plan: Chronic. She was noted by the RN to be swearing at her today. She does not want the children to visit her here. (11) Chronic pain due to neoplasm Assessment/Plan: She is on a good level of narcotics for control of pain, but able to communicate today. (12) Dehydration Assessment/Plan: Resolved (13) Severe sepsis Assessment/Plan: Resolved (14) DKA (diabetic ketoacidoses) Qualifiers: Diabetes mellitus type: type 1 Assessment/Plan: Resolved (15) Hypotension Assessment/Plan: Resolved - Current Meds Current Meds: Current Medications Generic Name Dose Route Start Last Admin Trade Name Freq PRN Reason Stop Dose Admin Chlorhexidine Gluconate 15 ml 06/21/19 23:00 06/23/19 07:59 Peridex PO 15 ml BID AIRAM Administration Fentanyl 1 patch 06/19/19 11:00 06/22/19 11:14 Duragesic TOP 1 patch Q72H AIRAM Administration Fentanyl 1 patch 06/19/19 11:00 06/22/19 11:14 Duragesic TOP 1 patch Q72H ARIAM Administration Guaifenesin/Codeine Phosphate 5 ml 06/20/19 19:54 06/21/19 03:50 Robitussin Ac PO 5 ml Q6HR PRN Administration Cough Sodium Chloride 500 mls @ 0 mls/hr 06/20/19 20:42 06/22/19 17:00 Normal Saline 0.9% IV Infused Q24H PRN Infusion TKO RATE TKO Levofloxacin 750 mg in 150 mls @ 100 mls/hr 06/21/19 17:30 06/22/19 18:44 Levaquin 750 Mg/150 Ml IV Infused Q24H AIRAM Infusion Acetaminophen 100 mls @ 400 mls/hr 06/22/19 14:47 06/23/19 11:44 Ofirmev IV Infused Q6HR PRN Infusion Pain or Fever > 38C (100.4F) Ampicillin Sodium/Sulbactam 100 mls @ 200 mls/hr 06/22/19 18:00 06/23/19 14:10 Sodium 3 gm/ Sodium Chloride IV Infused Q6HR AIRAM Infusion Dextrose 1,000 mls @ 83.333 mls/hr 06/23/19 08:00 06/23/19 08:56 D5w IV 83.333 mls/hr .Q12H AIRAM Administration Insulin Glargine 14 unit 06/21/19 21:00 06/22/19 20:49 Lantus Solostar SUBQ 14 unit QPM AIRAM Administration Insulin Human Regular 3 - 11 unit 06/22/19 18:00 06/23/19 11:50 Humulin R SUBQ Not Given Q6HR [facility] Protocol Lorazepam 0.5 mg 06/20/19 08:06 06/23/19 13:38 Ativan Inj (Vial) IVP 0.5 mg Q3H PRN Administration Restlessness Mineral Oil 1 applic 06/19/19 19:23 06/22/19 19:40 Cavilon TOP 1 applic PRN PRN Administration Skin Care Morphine Sulfate 10 mg 06/20/19 12:05 06/23/19 10:05 Roxanol PO 10 mg Q4HR PRN Administration PAIN Morphine Sulfate 2 mg 06/21/19 08:51 06/23/19 03:04 Morphine (Carpuject) IVP 2 mg Q3HR PRN Administration PAIN Pantoprazole Sodium 40 mg 06/19/19 07:00 06/23/19 06:31 Protonix IVP 40 mg QDAC AIRAM Administration Sodium Chloride 10 ml 06/19/19 01:00 06/23/19 07:59 Normal Saline Flush 0.9% IVP 10 ml 0100,0900,1700 AIRAM Administration Sodium Chloride 10 ml 06/18/19 19:26 06/22/19 07:10 Normal Saline Flush 0.9% IVP 10 ml PRN PRN Administration NEEDED PER PROVIDER ORDERS Sodium Chloride 20 ml 06/20/19 20:42 06/21/19 05:40 Normal Saline Flush 0.9% IVP 20 ml PRN PRN Administration After Blood Draw - Lab Result Fish Bone Diagrams: 06/25/19 04:44 06/25/19 04:44 - Additional Planning My Orders: My Active Orders 06/22/19 14:45 Suctioning - Nasal Tracheal [RC] PRN 06/22/19 14:47 Acetaminophen 1,000 mg/100 ml [Ofirmev] 100 ml IV Q6HR 06/22/19 15:25 CULTURE, BLOOD #1 [RM] Stat 06/22/19 18:00 Ampicillin/Sulbactam [Unasyn] 3 gm Sodium Chloride 0.9% Minibag [Normal Saline 0.9% Minibag] 100 ml IV Q6HR Insulin Regular Human [Humulin R] 3 - 11 unit SUBQ Q6HR 06/23/19 08:00 Dextrose 5% [D5w] 1,000 ml IV 83.333 mls/hr 06/24/19 05:00 MAGNESIUM [CHEM] DAILYLAB PHOSPHORUS [CHEM] DAILYLAB 06/25/19 05:00 MAGNESIUM [CHEM] DAILYLAB PHOSPHORUS [CHEM] DAILYLAB Subjective - Subjective Patient Reports: Feeling Better, Other (More alert and communicative and pleasant, still lethargic) Nursing Reports: Other (She is asking for and tolerating OJ. Today is her Birthday.) Objective Vital Signs: Vital Signs - 24 hr 06/22/19 06/22/19 06/22/19 16:00 17:00 18:00 Temperature 38.1 C H 37.9 C H 37.6 C H Heart Rate [ 140 H 136 H 128 H Monitoring electrodes] Respiratory 31 H 18 18 Rate Blood Pressure 129/94 H 117/83 H 124/84 H [Left Brachial artery] O2 Saturation 99 99 96 06/22/19 06/22/19 06/22/19 19:00 20:00 21:00 Temperature 37.4 C 37.2 C Heart Rate [ 132 H 124 H 124 H Monitoring electrodes] Respiratory 18 11 L 13 Rate Blood Pressure 117/77 108/70 107/69 [Left Brachial artery] O2 Saturation 100 94 98 06/22/19 06/22/19 06/23/19 22:00 23:00 00:00 Temperature 37 C 37.2 C Heart Rate [ 124 H 128 H 124 H Monitoring electrodes] Respiratory 21 19 16 Rate Blood Pressure 126/78 124/91 H 107/73 [Left Brachial artery] O2 Saturation 97 97 100 06/23/19 06/23/19 06/23/19 01:00 02:00 03:00 Temperature Heart Rate [ 127 H 127 H 126 H Monitoring electrodes] Respiratory 16 14 16 Rate Blood Pressure 108/82 H 109/85 H 113/75 [Left Brachial artery] O2 Saturation 94 100 100 06/23/19 06/23/19 06/23/19 04:00 05:00 06:00 Temperature 37.5 C Heart Rate [ 135 H 128 H 123 H Monitoring electrodes] Respiratory 19 16 15 Rate Blood Pressure 126/92 H 114/76 95/75 [Left Brachial artery] O2 Saturation 96 100 100 06/23/19 06/23/19 06/23/19 07:00 08:00 09:00 Temperature 37.6 C H Heart Rate [ 129 H 138 H 135 H Monitoring electrodes] Respiratory 19 20 17 Rate Blood Pressure 109/78 113/83 H 105/74 [Left Brachial artery] O2 Saturation 100 92 99 06/23/19 06/23/19 06/23/19 10:00 11:00 12:00 Temperature 37.8 C H 38 C H Heart Rate [ 142 H 142 H 133 H Monitoring electrodes] Respiratory 21 21 21 Rate Blood Pressure 115/81 H 114/98 H 104/75 [Left Brachial artery] O2 Saturation 100 100 100 06/23/19 06/23/19 13:00 14:00 Temperature 37.5 C Heart Rate [ 135 H 128 H Monitoring electrodes] Respiratory 23 19 Rate Blood Pressure 124/97 H 97/63 [Left Brachial artery] O2 Saturation 100 100 Oxygen O2 Source Room air I&O (Last 24 Hrs): Intake and Output Totals x24h 06/21/19 06/22/19 06/23/19 23:59 23:59 23:59 Intake Total 5760 5032.10 4867 Output Total 4149 3456 532 Balance 1611 1576.10 4335 General: Alert, Mild distress HEENT: Mucous membr. moist/pink, Other (Wide set eyes) Neck: Supple Neuro: Other (lethargic but awaken s and answers) Cardiovascular: Regular rate Respiratory: No respiratory distress, Other (Dimnished breath sounds R side, no wheezing or rhonchi) Abdomen: Soft, Other (Peritoneal tube with dressing on R, colostomy bag on L) Extremities: No edema - Results Results: Laboratory Results WBC 2.9 x10^3/uL (4.8-10.8) L 06/23/19 05:02 RBC 2.46 10^6/uL (4.20-5.40) L 06/23/19 05:02 Hgb 7.2 g/dL (12.0-16.0) L 06/23/19 05:02 Hct 24.1 % (37.0-47.0) L 06/23/19 05:02 MCV 98.0 fL (81.0-99.0) 06/23/19 05:02 MCH 29.3 pg (27.0-31.0) 06/23/19 05:02 MCHC 29.9 g/dL (32.0-36.0) L 06/23/19 05:02 RDW 20.1 % (12.0-15.0) H 06/23/19 05:02 Plt Count 16 10^3/uL (130-450) L* 06/23/19 05:02 MPV TNP 06/23/19 05:02 Neut # (Auto) Not Reportable 06/23/19 05:02 Lymph # (Auto) Not Reportable 06/23/19 05:02 Finney # (Auto) Not Reportable 06/23/19 05:02 Eos # (Auto) Not Reportable 06/23/19 05:02 Baso # (Auto) Not Reportable 06/23/19 05:02 Absolute Nucleated RBC Not Reportable 06/23/19 05:02 Total Counted 100 06/23/19 05:02 Band Neuts % (Manual) 1 % (0-10) 06/23/19 05:02 Abnorm Lymph % (Manual) 0 % 06/23/19 05:02 Metamyelocytes % 2 % (-0) H 06/21/19 06:08 Myelocytes % 2 % (-0) H 06/21/19 06:08 Nucleated RBC % Not Reportable 06/23/19 05:02 Neutrophils # (Manual) 1.5 10^3/uL (1.5-6.6) 06/23/19 05:02 Lymphocytes # (Manual) 1.0 10^3/uL (1.5-3.5) L 06/23/19 05:02 Monocytes # (Manual) 0.3 10^3/uL (0.0-1.0) 06/23/19 05:02 Eosinophils # (Manual) 0.1 10^3/uL (0-0.7) 06/23/19 05:02 Basophils # (Manual) 0.0 10^3/uL (0-0.1) 06/23/19 05:02 Differential Comment MANUAL DIFFERENTIAL 06/23/19 05:02 Manual Slide Review Indicated 06/20/19 16:58 WBC Morphology NORMAL APPEARANCE (NORMAL) 06/23/19 05:02 Platelet Estimate DECREASED (<130,000) (NORMAL) 06/23/19 05:02 Platelet Morphology NORMAL APPEARANCE (NORMAL) 06/23/19 05:02 RBC Morph Micro Appear 1+ ANISOCYTOSIS (NORMAL) 1+ HYPOCHROMASIA (NORMAL) 1+ OVALOCYTES (NORMAL) 06/20/19 04:40 RBC Morph Micro Appear 1+ ANISOCYTOSIS (NORMAL) 1+ HYPOCHROMASIA (NORMAL) 1+ OVALOCYTES (NORMAL) 06/20/19 04:40 RBC Morph Micro Appear 1+ ANISOCYTOSIS (NORMAL) 1+ DERRICK CELLS (NORMAL) 1+ MICROCYTOSIS (NORMAL) 1+ HYPOCHROMASIA (NORMAL) 1+ OVALOCYTES (NORMAL) 1+ SCHISTOCYTES (NORMAL) 06/20/19 16:58 RBC Morph Micro Appear 1+ ANISOCYTOSIS (NORMAL) 1+ DERRICK CELLS (NORMAL) 1+ MICROCYTOSIS (NORMAL) 1+ HYPOCHROMASIA (NORMAL) 1+ OVALOCYTES (NORMAL) 1+ SCHISTOCYTES (NORMAL) 06/20/19 16:58 RBC Morph Micro Appear 1+ ANISOCYTOSIS (NORMAL) 1+ DERRICK CELLS (NORMAL) 1+ MICROCYTOSIS (NORMAL) 1+ HYPOCHROMASIA (NORMAL) 1+ OVALOCYTES (NORMAL) 1+ SCHISTOCYTES (NORMAL) 06/20/19 16:58 RBC Morph Micro Appear 1+ ANISOCYTOSIS (NORMAL) 1+ DERRICK CELLS (NORMAL) 1+ MICROCYTOSIS (NORMAL) 1+ HYPOCHROMASIA (NORMAL) 1+ OVALOCYTES (NORMAL) 1+ SCHISTOCYTES (NORMAL) 06/20/19 16:58 RBC Morph Micro Appear 1+ ANISOCYTOSIS (NORMAL) 1+ DERRICK CELLS (NORMAL) 1+ MICROCYTOSIS (NORMAL) 1+ HYPOCHROMASIA (NORMAL) 1+ OVALOCYTES (NORMAL) 1+ SCHISTOCYTES (NORMAL) 06/20/19 16:58 RBC Morph Micro Appear 1+ ANISOCYTOSIS (NORMAL) 1+ DERRICK CELLS (NORMAL) 1+ MICROCYTOSIS (NORMAL) 1+ HYPOCHROMASIA (NORMAL) 1+ OVALOCYTES (NORMAL) 1+ SCHISTOCYTES (NORMAL) 06/20/19 16:58 RBC Morph Micro Appear 1+ ANISOCYTOSIS (NORMAL) 1+ HYPOCHROMASIA (NORMAL) 1+ OVALOCYTES (NORMAL) 06/21/19 06:08 RBC Morph Micro Appear 1+ ANISOCYTOSIS (NORMAL) 1+ HYPOCHROMASIA (NORMAL) 1+ OVALOCYTES (NORMAL) 06/21/19 06:08 RBC Morph Micro Appear 1+ ANISOCYTOSIS (NORMAL) 1+ HYPOCHROMASIA (NORMAL) 1+ OVALOCYTES (NORMAL) 06/21/19 06:08 RBC Morph Micro Appear 1+ HYPOCHROMASIA (NORMAL) 06/22/19 04:42 RBC Morph Micro Appear 1+ ANISOCYTOSIS (NORMAL) 1+ HYPOCHROMASIA (NORMAL) 06/23/19 05:02 RBC Morph Micro Appear 1+ ANISOCYTOSIS (NORMAL) 1+ HYPOCHROMASIA (NORMAL) 06/23/19 05:02 PT 20.7 secs (9.9-12.6) H 06/19/19 05:50 INR 1.9 (0.8-1.2) H 06/19/19 05:50 Fibrinogen 575 mg/dL (220-496) H 06/19/19 18:47 Bld Gas Analysis Time 0527 06/19/19 05:15 Sample Site RIGHT RADIAL 06/19/19 05:15 ABG pH 7.41 (7.35-7.45) 06/19/19 05:15 ABG pCO2 31 mmHg (34-45) L 06/19/19 05:15 ABG pO2 72 mmHg (80-100) L 06/19/19 05:15 ABG HCO3 18.9 mmol/L (22.0-26.0) L 06/19/19 05:15 ABG Total CO2 19.9 MMOL/L (21.0-29.0) L 06/19/19 05:15 ABG O2 Saturation 94 % (94-98) 06/19/19 05:15 ABG Base Excess -5.0 mmol/L (-2.0-3.0) L 06/19/19 05:15 Ramón Test POSITIVE 06/19/19 05:15 VBG pH 7.330 (7.31-7.41) 06/23/19 05:07 VBG pCO2 25.5 mmHg (41-51) L 06/18/19 18:46 VBG pO2 35.5 mmHg (25-47) 06/18/19 18:46 VBG HCO3 11.7 mmol/L (23-28) L 06/18/19 18:46 VBG Total CO2 12.5 mmol/L (24-29) L 06/18/19 18:46 VBG O2 Saturation 56.2 % (60-80) L 06/18/19 18:46 VBG Base Excess -13.5 mmol/L (-2 - +2) L 06/18/19 18:46 Ionized Calcium 1.11 mmol/L (1.15-1.33) L 06/23/19 05:07 O2 Delivery Device OXYMASK 06/19/19 05:15 O2 Liters/Min 4.00 LPM 06/19/19 05:15 FiO2 0.36 06/19/19 05:15 Sodium 146 mmol/L (135-145) H 06/23/19 05:02 Potassium 3.4 mmol/L (3.5-5.0) L 06/23/19 05:02 Chloride 126 mmol/L (101-111) H* 06/23/19 05:02 Carbon Dioxide 14 mmol/L (21-32) L 06/23/19 05:02 Anion Gap 6.0 (6-13) 06/23/19 05:02 BUN 15 mg/dL (6-20) 06/23/19 05:02 Creatinine 0.7 mg/dL (0.4-1.0) 06/23/19 05:02 Estimated GFR (MDRD) 95 (>89) 06/23/19 05:02 Glucose 96 mg/dL (70-100) 06/23/19 05:02 POC Whole Bld Glucose 126 mg/dL (70 - 100) H 06/23/19 11:33 Glycated Hemoglobin 8.1 % (4.6-6.2) H 06/18/19 18:09 Estim Average Glucose 186 (70-100) H 06/18/19 18:09 Lactic Acid 2.0 mmol/L (0.5-2.2) 06/18/19 22:33 Calcium 7.2 mg/dL (8.5-10.3) L 06/23/19 05:02 Phosphorus 1.2 mg/dL (2.5-4.6) L 06/23/19 05:02 Magnesium 1.6 mg/dL (1.7-2.8) L 06/23/19 05:02 Total Bilirubin 2.4 mg/dL (0.2-1.0) H 06/20/19 04:40 Direct Bilirubin 1.3 mg/dL (0.1-0.5) H 06/20/19 04:40 AST 59 IU/L (10-42) H 06/20/19 04:40 ALT 16 IU/L (10-60) 06/20/19 04:40 Alkaline Phosphatase 803 IU/L (42-121) H 06/20/19 04:40 Total Creatine Kinase 105 IU/L (22-269) 06/18/19 18:09 Total Protein 4.5 g/dL (6.7-8.2) L 06/20/19 04:40 Albumin 1.2 g/dL (3.2-5.5) L 06/22/19 04:42 Globulin 3.4 g/dL (2.1-4.2) 06/20/19 04:40 Albumin/Globulin Ratio 0.3 (1.0-2.2) L 06/18/19 18:09 Lipase 15 U/L (22-51) L 06/18/19 18:09 TSH 2.50 uIU/mL (0.34-5.60) 06/18/19 18:09 Urine Color DARK YELLOW 06/18/19 19:30 Urine Clarity CLEAR (CLEAR) 06/18/19 19:30 Urine pH 5.0 PH (5.0-7.5) 06/18/19 19:30 Ur Specific Sturgeon 1.025 (1.002-1.030) 06/18/19 19:30 Urine Protein TRACE mg/dL (NEGATIVE) 06/18/19 19:30 Urine Glucose (UA) 250 mg/dL (NEGATIVE) H 06/18/19 19:30 Urine Ketones TRACE mg/dL (NEGATIVE) 06/18/19 19:30 Urine Occult Blood NEGATIVE (NEGATIVE) 06/18/19 19:30 Urine Nitrite NEGATIVE (NEGATIVE) 06/18/19 19:30 Urine Bilirubin SMALL (NEGATIVE) H 06/18/19 19:30 Urine Ictotest Cancelled 06/18/19 18:16 Urine Urobilinogen 1 (NORMAL) E.U./dL (NORMAL) 06/18/19 19:30 Ur Leukocyte Esterase NEGATIVE (NEGATIVE) 06/18/19 19:30 Ur Microscopic Review NOT INDICATED 06/18/19 19:30 Urine Culture Comments NOT INDICATED 06/18/19 19:30 Fluid Source PERITONEAL 06/19/19 18:45 Fluid Color YELLOW 06/19/19 18:45 Fluid Clarity CLEAR 06/19/19 18:45 Fluid WBC 1827 /mm^3 06/19/19 18:45 Fluid RBC < 3000 /mm^3 06/19/19 18:45 Fluid Neutrophils % 97 % 06/19/19 18:45 Fluid Lymphocytes % 1 06/19/19 18:45 Fluid Monocytes % 1 % 06/19/19 18:45 Fld Mesothelial Cell % 1 % 06/19/19 18:45 Nasal Screen MRSA (PCR) NEGATIVE (NEGATIVE) 06/18/19 20:10 Last Dose Date UNKNOWN 06/21/19 06:08 Last Dose Time UNKNOWN 06/21/19 06:08 Vancomycin Trough 38.8 ug/mL (10.0-20.0) H* 06/20/19 08:22 Random Vancomycin 16.9 ug/mL 06/21/19 06:08 Salicylates < 6.0 mg/dL 06/18/19 18:09 Urine Opiates Screen NEGATIVE (NEGATIVE) 06/18/19 18:16 Ur Oxycodone Screen POSITIVE (NEGATIVE) H 06/18/19 18:16 Urine Methadone Screen NEGATIVE (NEGATIVE) 06/18/19 18:16 Ur Propoxyphene Screen NEGATIVE (NEGATIVE) 06/18/19 18:16 Acetaminophen < 10 ug/mL (10-30) L 06/18/19 18:09 Ur Barbiturates Screen NEGATIVE (NEGATIVE) 06/18/19 18:16 Ur Tricyclics Screen NEGATIVE (NEGATIVE) 06/18/19 18:16 Ur Phencyclidine Scrn NEGATIVE (NEGATIVE) 06/18/19 18:16 Ur Amphetamine Screen NEGATIVE (NEGATIVE) 06/18/19 18:16 U Methamphetamines Scrn NEGATIVE (NEGATIVE) 06/18/19 18:16 U Benzodiazepines Scrn NEGATIVE (NEGATIVE) 06/18/19 18:16 Urine Cocaine Screen NEGATIVE (NEGATIVE) 06/18/19 18:16 U Cannabinoids Screen NEGATIVE (NEGATIVE) 06/18/19 18:16 Ethyl Alcohol < 5.0 mg/dL 06/18/19 18:09 Serum Ketones NEGATIVE (NEGATIVE) 06/19/19 18:36 Blood Type A NEGATIVE 06/19/19 05:50 Antibody Screen NEGATIVE 06/19/19 05:50 Crossmatch IS Only See Detail 06/19/19 05:50 Sepsis Event Note (H) - Evaluation Current Stage of Sepsis: Sepsis Possible source of Sepsis: positive: Pulmonary - Sepsis Criteria Sepsis Criteria: Recorded Heart Rate greater than 90 bpm, Recorded Respiratory Rate greater than 20, Respiratory: Increasing oxygen requirements, WBC count greater than 12,000 or less than 4000, SBP drop more than 40mHg, MAP less than 65 mmHg, SBP less than 90 mmHg, Metabolic: lactate > 2 mmol/L, Hepatic: Bilirubin greater than 2mg/dl
[2019-06-23] MEDS: levoFLOXacin 750 MG/150 ML 750 MG/150 ML BAG IV SCH (16:55)
[2019-06-23] MEDS: INSULIN GLARGINE 300 UNIT/3 ML PEN SUBQ SCH (20:59)
[2019-06-24] MEDS: INSULIN REGULAR HUMAN 300 UNIT/3 ML VIAL SUBQ SCH ×5 (00:05→22:48)
[2019-06-24] MEDS: AMPICILLIN/SULBACTAM 3 GM in SODIUM CHLORIDE 0.9% MINIBAG 100 ML IV SCH ×4 (00:06→18:16)
[2019-06-24] MEDS: MORPHINE 2 MG/ML CARPUJECT IVP PRN ×5 (00:09→22:42)
[2019-06-24] MEDS: SODIUM CHLORIDE FLUSH 0.9% 10 ML SYRINGE IVP SCH ×4 (00:10→20:30)
[2019-06-24] MEDS: MIN OIL/DIMETHICON/COCONUT OIL 92 GM TUBE TOP PRN (01:20)
[2019-06-24] MEDS: LORazepam 2 MG/ML VIAL IVP PRN ×2 (02:31→20:30)
[2019-06-24 05:17] LABS: VBG PH 7.36 (7.31-7.41)
[2019-06-24 05:32] LABS: MAGNESIUM 1.8 mg/dL (1.7-2.8); PHOSPHORUS 1.8 mg/dL (2.5-4.6)
[2019-06-24] MEDS ORDERED: CALCIUM GLUCONATE 1,000 MG in SODIUM CHLORIDE 0.9% 50 ML IV ONE (06:00)
[2019-06-24] MEDS: PANTOPRAZOLE 40 MG VIAL IVP SCH (06:11)
[2019-06-24 07:27] LABS: BASOPHILS % (AUTO) 0.3 %; EOSINOPHILS # (AUTO) 0.1 10^3/uL (0.0-0.7); EOSINOPHILS % (AUTO) 2.6 %; HGB - HEMOGLOBIN 7.1 g/dL (12.0-16.0); LYMPHOCYTES # (AUTO) 1.4 10^3/uL (1.5-3.5); LYMPHOCYTES % (AUTO) 37.3 %; MEAN CORPUSCULAR HEMOGLOBIN 29.7 pg (27.0-31.0); MEAN CORPUSCULAR VOLUME 99.2 fL (81.0-99.0); MEAN PLATELET VOLUME 12.4 fL (7.9-10.8); MONOCYTES # (AUTO) 0.5 10^3/uL (0.0-1.0); MONOCYTES % (AUTO) 13.7 %; NEUTROPHILS # (AUTO) 1.8 10^3/uL (1.5-6.6); NEUTROPHILS % (AUTO) 45.3 %; RED BLOOD COUNT 2.39 10^6/uL (4.20-5.40); RED CELL DISTRIBUTION WIDTH 20.1 % (12.0-15.0); WHITE BLOOD COUNT 3.9 x10^3/uL (4.8-10.8)
[2019-06-24 07:34] LABS: CALCIUM 7.2 mg/dL (8.5-10.3); CREATININE 0.5 mg/dL (0.4-1.0)
[2019-06-24 07:36] LABS: PLT - PLATELET COUNT 28 10^3/uL (130-450)
[2019-06-24 07:38] LABS: INR 2.1 (0.8-1.2)
[2019-06-24 07:54] LABS: PLATELET ESTIMATE, MANUAL DECREASED (<130,000) (NORMAL); PLATELET MORPHOLOGY NORMAL APPEARANCE (NORMAL)
[2019-06-24] MEDS: CHLORHEXIDINE GLUCONATE 15 ML UDC PO SCH ×2 (08:00→22:11)
[2019-06-24] MEDS ORDERED: POTASSIUM PHOSPHATE 15 MMOL in SODIUM CHLORIDE 0.9% 250 ML IV ONE (09:00)
[2019-06-24] MEDS: ACETAMINOPHEN 1,000 MG/100 ML 100 ML IV PRN (09:57)
[2019-06-24] MEDS: DEXTROSE 5% 1,000 ML IV SCH ×2 (09:57→20:29)
[2019-06-24] MEDS ORDERED: SODIUM CHLORIDE 0.9% 250 ML IV ONE (10:33)
--- NOTE | 2019-06-24 11:35 | PROVIDER PROGRESS NOTE ---
Assessment/Plan - Problem List (1) Pneumonia Assessment/Plan: Her CXR done 2 days ago, had shown worsening infiltrate on the R side. This mauy be an aspuration PNA. She is making sputum, but cannot expectorate it. She cannot swallow pills to add Mucinex, and is too weak to perform Acapella flutter valve for expectoration. Contunue antibiotics. (2) Bacteremia due to Streptococcus pneumoniae Assessment/Plan: After the first set of blood cultures, drawn on day 1, all her other blood cultures have been negative. And Echo did not show valvular vegetations. (3) DM type 1 (diabetes mellitus, type 1) Assessment/Plan: She had presented in DKA, needed IV insulin continued as an IV of D5 was used to give her calories while she was obtunded. Yesterday D5 was resumed because of hypernatremia. We will plan to advance her diet and continue Accu-Cheks and sliding scale insulin (4) Colon cancer metastasized to liver Assessment/Plan: An abdomen CT was done on this admission in order for prognosticating. Cathy Osei NP, knows this patient well. There was no significant change in findings of the cancer in her abdomen. Last week was her "week off from chemotherapy" (5) Malignant ascites Assessment/Plan: The hospital was able to obtain the specific [employer] equipment needed to drain her ascites of 1 to 1.5 L every day using the newly inserted peritoneal tube. She got this about 10 days prior to this admission. The plan had been for the to drain it at home daily, but the patient did not allow him to come near her and in the 10 days of having her peritoneal tube, it was only drained once, 5 days before this current admission. She has had considerable improvement in her pain, with daily removal of ascites fluid (6) Severe protein-calorie malnutrition Assessment/Plan: In the week before this admission, the patient was only eating rice and noodles. Since being less obtunded here, she only asks for and takes orange juice and chocolate milk. Nutrition consult reordered for recommendations. Cathy Osei NP, saw the patient today and "told her she must eat" (7) Anemia Assessment/Plan: The did consent to transfusion earlier this admission. With her IV hydration, hemodilution, her hemoglobin has been hovering just above 7.0. There is no respiratory distress, and her LVEF is WNL, therefore will not transfuse unless she has a hemoglobin <7. Follow CBC daily. (8) Thrombocytopenia Assessment/Plan: She has had a consistent drop in platelets since admission, got 1 units of platelets transfused at mid hospitalization. She never dropped platelet count below 10 therefore there was not a second order for platelet transfusions. She had only 1 day of visible bleeding in the colostomy bag on the second day of this hospitalization, no other signs of bleeding since then. Follow CBC daily. (9) History of anxiety Assessment/Plan: She is on prn anxiolytics. 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 She is stubborn, withdraws to skin touch, and will not allow caregiving from the or visiting nurses, that has been ordered. She has become "angry" since having the colon cancer diagnosis. There are 3 children, and they have a iveth relationship with their mother. The oldest is 12, and was caring for her younger siblings at times, when the patient could not, and when the patient would not let her [id number] in the house to help out. (11) Chronic pain due to neoplasm Assessment/Plan: She has good pain control with the current prn pain meds, and is not over sedated. Will begin orders to move her OOB to chair. Cathy Osei NP, also ordered her to be moved out of bed. Prior to this admission she was mostly resting supine, but she did get up, with her own strength, to walk short distances in the house (12) Dehydration Assessment/Plan: Resolved (13) Severe sepsis Assessment/Plan: Resolved (14) DKA (diabetic ketoacidoses) Qualifiers: Diabetes mellitus type: type 1 Assessment/Plan: Resolved (15) Hypotension Assessment/Plan: She developed type 1 diabetes after gestation. The DKA has now resolved - Current Meds Current Meds: Current Medications Generic Name Dose Route Start Last Admin Trade Name Freq PRN Reason Stop Dose Admin Chlorhexidine Gluconate 15 ml 06/21/19 23:00 06/24/19 08:00 Peridex PO 15 ml BID AIRAM Administration Fentanyl 1 patch 06/19/19 11:00 06/22/19 11:14 Duragesic TOP 1 patch Q72H AIRAM Administration Fentanyl 1 patch 06/19/19 11:00 06/22/19 11:14 Duragesic TOP 1 patch Q72H AIRAM Administration Guaifenesin/Codeine Phosphate 5 ml 06/20/19 19:54 06/21/19 03:50 Robitussin Ac PO 5 ml Q6HR PRN Administration Cough Sodium Chloride 500 mls @ 0 mls/hr 06/20/19 20:42 06/22/19 17:00 Normal Saline 0.9% IV Infused Q24H PRN Infusion TKO RATE TKO Levofloxacin 750 mg in 150 mls @ 100 mls/hr 06/21/19 17:30 06/23/19 20:06 Levaquin 750 Mg/150 Ml IV Infused Q24H AIRAM Infusion Acetaminophen 100 mls @ 400 mls/hr 06/22/19 14:47 06/24/19 09:57 Ofirmev IV 400 mls/hr Q6HR PRN Administration Pain or Fever > 38C (100.4F) Ampicillin Sodium/Sulbactam 100 mls @ 200 mls/hr 06/22/19 18:00 06/24/19 06:21 Sodium 3 gm/ Sodium Chloride IV Infused Q6HR AIRAM Infusion Dextrose 1,000 mls @ 83.333 mls/hr 06/23/19 08:00 06/24/19 09:57 D5w IV 83.333 mls/hr .Q12H AIRAM Administration Insulin Glargine 14 unit 06/21/19 21:00 06/23/19 20:59 Lantus Solostar SUBQ 14 unit QPM AIRAM Administration Insulin Human Regular 3 - 11 unit 06/22/19 18:00 06/24/19 05:47 Humulin R SUBQ Not Given Q6HR [facility] Protocol Lorazepam 0.5 mg 06/20/19 08:06 06/24/19 02:31 Ativan Inj (Vial) IVP 0.5 mg Q3H PRN Administration Restlessness Mineral Oil 1 applic 06/19/19 19:23 06/24/19 01:20 Cavilon TOP 1 applic PRN PRN Administration Skin Care Morphine Sulfate 10 mg 06/20/19 12:05 06/23/19 10:05 Roxanol PO 10 mg Q4HR PRN Administration PAIN Morphine Sulfate 2 mg 06/21/19 08:51 06/24/19 09:57 Morphine (Carpuject) IVP 2 mg Q3HR PRN Administration PAIN Pantoprazole Sodium 40 mg 06/19/19 07:00 06/24/19 06:11 Protonix IVP 40 mg QDAC AIRAM Administration Sodium Chloride 10 ml 06/19/19 01:00 06/24/19 08:01 Normal Saline Flush 0.9% IVP 10 ml 0100,0900,1700 AIRAM Administration Sodium Chloride 10 ml 06/18/19 19:26 06/22/19 07:10 Normal Saline Flush 0.9% IVP 10 ml PRN PRN Administration NEEDED PER PROVIDER ORDERS Sodium Chloride 20 ml 06/20/19 20:42 06/21/19 05:40 Normal Saline Flush 0.9% IVP 20 ml PRN PRN Administration After Blood Draw - Lab Result Fish Bone Diagrams: 06/25/19 04:44 06/25/19 04:44 - Additional Planning My Orders: My Active Orders 06/24/19 07:47 Transfuse RBCs Leukoreduced [RC] .ONCE 06/24/19 08:05 RBC, LEUKOREDUCED Routine TYPE AND SCREEN Routine 06/24/19 09:00 Potassium Phosphate 15 mmol Sodium Chloride 0.9% [Normal Saline 0.9%] 250 ml IV ONCE 06/24/19 09:14 Miscellaenous Nursing Order [RC] DAILY 06/24/19 09:16 Nutrition Consult [CONS] Routine 06/25/19 05:00 CALCIUM, IONIZED ([facility]) [BG] DAILYLAB MAGNESIUM [CHEM] DAILYLAB PHOSPHORUS [CHEM] DAILYLAB 06/26/19 05:00 CALCIUM, IONIZED ([facility]) [BG] DAILYLAB Subjective - Subjective Patient Reports: Resting Comfortably Nursing Reports: Other (More alertb and communicative, less moaning today) Objective Vital Signs: Vital Signs - 24 hr 06/23/19 06/23/19 06/23/19 12:00 13:00 14:00 Temperature 37.5 C Heart Rate Heart Rate [ 133 H 135 H 128 H Monitoring electrodes] Respiratory 21 23 19 Rate Blood Pressure Blood Pressure 104/75 124/97 H 97/63 [Left Brachial artery] O2 Saturation 100 100 100 06/23/19 06/23/19 06/23/19 15:00 16:00 17:00 Temperature 37.2 C 37.2 C Heart Rate Heart Rate [ 128 H 120 H 122 H Monitoring electrodes] Respiratory 17 21 18 Rate Blood Pressure Blood Pressure 116/91 H 109/78 118/82 H [Left Brachial artery] O2 Saturation 100 100 100 06/23/19 06/23/19 06/23/19 18:00 19:00 20:00 Temperature 37.2 C 37.2 C 37.2 C Heart Rate Heart Rate [ 121 H 127 H 123 H Monitoring electrodes] Respiratory 15 21 16 Rate Blood Pressure Blood Pressure 87/54 L 94/63 103/77 [Left Brachial artery] O2 Saturation 100 100 100 06/23/19 06/23/19 06/23/19 21:00 22:00 23:00 Temperature Heart Rate Heart Rate [ 122 H 123 H 124 H Monitoring electrodes] Respiratory 17 21 18 Rate Blood Pressure Blood Pressure 121/81 H 100/68 102/80 [Left Brachial artery] O2 Saturation 100 100 100 06/24/19 06/24/19 06/24/19 00:00 01:00 02:00 Temperature 37.5 C Heart Rate Heart Rate [ 127 H 126 H 127 H Monitoring electrodes] Respiratory 17 22 20 Rate Blood Pressure Blood Pressure 125/96 H 102/56 L 100/75 [Left Brachial artery] O2 Saturation 93 100 100 06/24/19 06/24/19 06/24/19 03:00 04:00 05:00 Temperature 37.7 C H Heart Rate Heart Rate [ 125 H 125 H 122 H Monitoring electrodes] Respiratory 20 19 20 Rate Blood Pressure Blood Pressure 112/79 115/83 H 90/64 [Left Brachial artery] O2 Saturation 100 100 100 06/24/19 06/24/19 06/24/19 06:00 07:00 08:00 Temperature 37.7 C H Heart Rate Heart Rate [ 126 H 125 H 131 H Monitoring electrodes] Respiratory 18 17 22 Rate Blood Pressure Blood Pressure 118/72 102/72 115/83 H [Left Brachial artery] O2 Saturation 100 100 100 06/24/19 06/24/19 06/24/19 10:00 10:39 10:45 Temperature 38.0 C H 37.8 C H 37.8 C H Heart Rate 130 H 129 H Heart Rate [ 131 H Monitoring electrodes] Respiratory 19 21 19 Rate Blood Pressure 104/68 100/66 Blood Pressure 104/68 [Left Brachial artery] O2 Saturation 100 06/24/19 06/24/19 11:00 11:04 Temperature 37.7 C H 37.7 C H Heart Rate 126 H Heart Rate [ 124 H Monitoring electrodes] Respiratory 12 18 Rate Blood Pressure 103/67 Blood Pressure 103/67 [Left Brachial artery] O2 Saturation 100 Oxygen O2 Source Room air I&O (Last 24 Hrs): Intake and Output Totals x24h 06/22/19 06/23/19 06/24/19 23:59 23:59 23:59 Intake Total 5032.10 6285.052 1659.163 Output Total 3456 2561 481 Balance 1576.10 3724.052 1178.163 General: Alert, Oriented x3 HEENT: Mucous membr. moist/pink, Other (Poor dentition, wide set eyes) Neck: Supple Neuro: Non Focal, Other (Overall weak) Cardiovascular: Regular rate, No murmurs Respiratory: No respiratory distress Abdomen: Soft, Other (Colostomy and drain tube in place) Extremities: Other (Trace edema of feet and hands) - Results Results: Laboratory Results WBC 3.9 x10^3/uL (4.8-10.8) L 06/24/19 07:17 RBC 2.39 10^6/uL (4.20-5.40) L 06/24/19 07:17 Hgb 7.1 g/dL (12.0-16.0) L 06/24/19 07:17 Hct 23.7 % (37.0-47.0) L 06/24/19 07:17 MCV 99.2 fL (81.0-99.0) H 06/24/19 07:17 MCH 29.7 pg (27.0-31.0) 06/24/19 07:17 MCHC 30.0 g/dL (32.0-36.0) L 06/24/19 07:17 RDW 20.1 % (12.0-15.0) H 06/24/19 07:17 Plt Count 28 10^3/uL (130-450) L* 06/24/19 07:17 MPV 12.4 fL (7.9-10.8) H 06/24/19 07:17 Neut # (Auto) 1.8 10^3/uL (1.5-6.6) 06/24/19 07:17 Lymph # (Auto) 1.4 10^3/uL (1.5-3.5) L 06/24/19 07:17 [place] # (Auto) 0.5 10^3/uL (0.0-1.0) 06/24/19 07:17 Eos # (Auto) 0.1 10^3/uL (0.0-0.7) 06/24/19 07:17 Baso # (Auto) 0.0 10^3/uL (0.0-0.1) 06/24/19 07:17 Absolute Nucleated RBC 0.02 x10^3/uL 06/24/19 07:17 Total Counted 100 06/23/19 05:02 Band Neuts % (Manual) 1 % (0-10) 06/23/19 05:02 Abnorm Lymph % (Manual) 0 % 06/23/19 05:02 Metamyelocytes % 2 % (-0) H 06/21/19 06:08 Myelocytes % 2 % (-0) H 06/21/19 06:08 Nucleated RBC % 0.5 /100WBC 06/24/19 07:17 Neutrophils # (Manual) 1.5 10^3/uL (1.5-6.6) 06/23/19 05:02 Lymphocytes # (Manual) 1.0 10^3/uL (1.5-3.5) L 06/23/19 05:02 Monocytes # (Manual) 0.3 10^3/uL (0.0-1.0) 06/23/19 05:02 Eosinophils # (Manual) 0.1 10^3/uL (0-0.7) 06/23/19 05:02 Basophils # (Manual) 0.0 10^3/uL (0-0.1) 06/23/19 05:02 Differential Comment MANUAL DIFFERENTIAL 06/23/19 05:02 Manual Slide Review Indicated 06/24/19 07:17 WBC Morphology NORMAL APPEARANCE (NORMAL) 06/23/19 05:02 Platelet Estimate DECREASED (<130,000) (NORMAL) 06/24/19 07:17 Platelet Morphology NORMAL APPEARANCE (NORMAL) 06/24/19 07:17 RBC Morph Micro Appear 1+ ANISOCYTOSIS (NORMAL) 1+ HYPOCHROMASIA (NORMAL) 1+ OVALOCYTES (NORMAL) 06/20/19 04:40 RBC Morph Micro Appear 1+ ANISOCYTOSIS (NORMAL) 1+ DERRICK CELLS (NORMAL) 1+ MICROCYTOSIS (NORMAL) 1+ HYPOCHROMASIA (NORMAL) 1+ OVALOCYTES (NORMAL) 1+ SCHISTOCYTES (NORMAL) 06/20/19 16:58 RBC Morph Micro Appear 1+ ANISOCYTOSIS (NORMAL) 1+ DERRICK CELLS (NORMAL) 1+ MICROCYTOSIS (NORMAL) 1+ HYPOCHROMASIA (NORMAL) 1+ OVALOCYTES (NORMAL) 1+ SCHISTOCYTES (NORMAL) 06/20/19 16:58 RBC Morph Micro Appear 1+ ANISOCYTOSIS (NORMAL) 1+ DERRICK CELLS (NORMAL) 1+ MICROCYTOSIS (NORMAL) 1+ HYPOCHROMASIA (NORMAL) 1+ OVALOCYTES (NORMAL) 1+ SCHISTOCYTES (NORMAL) 06/20/19 16:58 RBC Morph Micro Appear 1+ ANISOCYTOSIS (NORMAL) 1+ DERRICK CELLS (NORMAL) 1+ KATAR[place]YNA ROCYTOSIS (NORMAL) 1+ HYPOCHROMASIA (NORMAL) 1+ OVALOCYTES (NORMAL) 1+ SCHISTOCYTES (NORMAL) 06/20/19 16:58 RBC Morph Micro Appear 1+ ANISOCYTOSIS (NORMAL) 1+ DERRICK CELLS (NORMAL) 1+ [place] CROCYTOSIS (NORMAL) 1+ HYPOCHROMASIA (NORMAL) 1+ OVALOCYTES (NORMAL) 1+ SCHISTOCYTES (NORMAL) 06/20/19 16:58 RBC Morph Micro Appear 1+ ANISOCYTOSIS (NORMAL) 1+ DERRICK CELLS (NORMAL) 1+ M ICROCYTOSIS (NORMAL) 1+ HYPOCHROMASIA (NORMAL) 1+ OVALOCYTES (NORMAL) 1+ SCHISTOCYTES (NORMAL) 06/20/19 16:58 RBC Morph Micro Appear 1+ ANISOCYTOSIS (NORMAL) 1+ HYPOCHROMASIA (NORMAL) 1+ OVALOCYTES (NORMAL) 06/21/19 06:08 RBC Morph Micro Appear 1+ ANISOCYTOSIS (NORMAL) 1+ HYPOCHROMASIA (NORMAL) 1+ OVALOCYTES (NORMAL) 06/21/19 06:08 RBC Morph Micro Appear 1+ ANISOCYTOSIS (NORMAL) 1+ HYPOCHROMASIA (NORMAL) 1+ OVALOCYTES (NORMAL) 06/21/19 06:08 RBC Morph Micro Appear 1+ HYPOCHROMASIA (NORMAL) 06/22/19 04:42 RBC Morph Micro Appear 1+ ANISOCYTOSIS (NORMAL) 1+ HYPOCHROMASIA (NORMAL) 06/23/19 05:02 RBC Morph Micro Appear 1+ ANISOCYTOSIS (NORMAL) 1+ HYPOCHROMASIA (NORMAL) 06/23/19 05:02 RBC Morph Micro Appear 1+ POLYCHROMASIA (NORMAL) 1+ HYPOCHROMASIA (NORMAL) 1+ ANISOCYTOSIS (NORMAL) 06/24/19 07:17 RBC Morph Micro Appear 1+ POLYCHROMASIA (NORMAL) 1+ HYPOCHROMASIA (NORMAL) 1+ ANISOCYTOSIS (NORMAL) 06/24/19 07:17 RBC Morph Micro Appear 1+ POLYCHROMASIA (NORMAL) 1+ HYPOCHROMASIA (NORMAL) 1+ ANISOCYTOSIS (NORMAL) 06/24/19 07:17 PT 23.0 secs (9.9-12.6) H 06/24/19 07:17 INR 2.1 (0.8-1.2) H 06/24/19 07:17 Fibrinogen 575 mg/dL (220-496) H 06/19/19 18:47 Bld Gas Analysis Time 0506/19/19 05:15 Sample Site RIGHT RADIAL 06/19/19 05:15 ABG pH 7.41 (7.35-7.45) 06/19/19 05:15 ABG pCO2 31 mmHg (34-45) L 06/19/19 05:15 ABG pO2 72 mmHg (80-100) L 06/19/19 05:15 ABG HCO3 18.9 mmol/L (22.0-26.0) L 06/19/19 05:15 ABG Total CO2 19.9 MMOL/L (21.0-29.0) L 06/19/19 05:15 ABG O2 Saturation 94 % (94-98) 06/19/19 05:15 ABG Base Excess -5.0 mmol/L (-2.0-3.0) L 06/19/19 05:15 Ramón Test POSITIVE 06/19/19 05:15 VBG pH 7.360 (7.31-7.41) 06/24/19 04:15 VBG pCO2 25.5 mmHg (41-51) L 06/18/19 18:46 VBG pO2 35.5 mmHg (25-47) 06/18/19 18:46 VBG HCO3 11.7 mmol/L (23-28) L 06/18/19 18:46 VBG Total CO2 12.5 mmol/L (24-29) L 06/18/19 18:46 VBG O2 Saturation 56.2 % (60-80) L 06/18/19 18:46 VBG Base Excess -13.5 mmol/L (-2 - +2) L 06/18/19 18:46 Ionized Calcium 1.09 mmol/L (1.15-1.33) L 06/24/19 04:15 O2 Delivery Device OXYMASK 06/19/19 05:15 O2 Liters/Min 4.00 LPM 06/19/19 05:15 FiO2 0.36 06/19/19 05:15 Sodium 140 mmol/L (135-145) 06/24/19 07:17 Potassium 3.9 mmol/L (3.5-5.0) 06/24/19 07:17 Chloride 119 mmol/L (101-111) H 06/24/19 07:17 Carbon Dioxide 14 mmol/L (21-32) L 06/24/19 07:17 Anion Gap 7.0 (6-13) 06/24/19 07:17 BUN 13 mg/dL (6-20) 06/24/19 07:17 Creatinine 0.5 mg/dL (0.4-1.0) 06/24/19 07:17 Estimated GFR (MDRD) 140 (>89) 06/24/19 07:17 Glucose 136 mg/dL (70-100) H 06/24/19 07:17 POC Whole Bld Glucose 113 mg/dL (70 - 100) H 06/24/19 05:46 Glycated Hemoglobin 8.1 % (4.6-6.2) H 06/18/19 18:09 Estim Average Glucose 186 (70-100) H 06/18/19 18:09 Lactic Acid 2.0 mmol/L (0.5-2.2) 06/18/19 22:33 Calcium 7.2 mg/dL (8.5-10.3) L 06/24/19 07:17 Phosphorus 1.8 mg/dL (2.5-4.6) L 06/24/19 04:15 Magnesium 1.8 mg/dL (1.7-2.8) 06/24/19 04:15 Total Bilirubin 2.4 mg/dL (0.2-1.0) H 06/20/19 04:40 Direct Bilirubin 1.3 mg/dL (0.1-0.5) H 06/20/19 04:40 AST 59 IU/L (10-42) H 06/20/19 04:40 ALT 16 IU/L (10-60) 06/20/19 04:40 Alkaline Phosphatase 803 IU/L (42-121) H 06/20/19 04:40 Total Creatine Kinase 105 IU/L (22-269) 06/18/19 18:09 Total Protein 4.5 g/dL (6.7-8.2) L 06/20/19 04:40 Albumin 1.2 g/dL (3.2-5.5) L 06/22/19 04:42 Globulin 3.4 g/dL (2.1-4.2) 06/20/19 04:40 Albumin/Globulin Ratio 0.3 (1.0-2.2) L 06/18/19 18:09 Lipase 15 U/L (22-51) L 06/18/19 18:09 TSH 2.50 uIU/mL (0.34-5.60) 06/18/19 18:09 Urine Color DARK YELLOW 06/18/19 19:30 Urine Clarity CLEAR (CLEAR) 06/18/19 19:30 Urine pH 5.0 PH (5.0-7.5) 06/18/19 19:30 Ur Specific [place] 1.025 (1.002-1.030) 06/18/19 19:30 Urine Protein TRACE mg/dL (NEGATIVE) 06/18/19 19:30 Urine Glucose (UA) 250 mg/dL (NEGATIVE) H 06/18/19 19:30 Urine Ketones TRACE mg/dL (NEGATIVE) 06/18/19 19:30 Urine Occult Blood NEGATIVE (NEGATIVE) 06/18/19 19:30 Urine Nitrite NEGATIVE (NEGATIVE) 06/18/19 19:30 Urine Bilirubin SMALL (NEGATIVE) H 06/18/19 19:30 Urine Ictotest Cancelled 06/18/19 18:16 Urine Urobilinogen 1 (NORMAL) E.U./dL (NORMAL) 06/18/19 19:30 Ur Leukocyte Esterase NEGATIVE (NEGATIVE) 06/18/19 19:30 Ur Microscopic Review NOT INDICATED 06/18/19 19:30 Urine Culture Comments NOT INDICATED 06/18/19 19:30 Fluid Source PERITONEAL 06/19/19 18:45 Fluid Color YELLOW 06/19/19 18:45 Fluid Clarity CLEAR 06/19/19 18:45 Fluid WBC 1827 /mm^3 06/19/19 18:45 Fluid RBC < 3000 /mm^3 06/19/19 18:45 Fluid Neutrophils % 97 % 06/19/19 18:45 Fluid Lymphocytes % 1 06/19/19 18:45 Fluid Monocytes % 1 % 06/19/19 18:45 Fld Mesothelial Cell % 1 % 06/19/19 18:45 Nasal Screen MRSA (PCR) NEGATIVE (NEGATIVE) 06/18/19 20:10 Last Dose Date UNKNOWN 06/21/19 06:08 Last Dose Time UNKNOWN 06/21/19 06:08 Vancomycin Trough 38.8 ug/mL (10.0-20.0) H* 06/20/19 08:22 Random Vancomycin 16.9 ug/mL 06/21/19 06:08 Salicylates < 6.0 mg/dL 06/18/19 18:09 Urine Opiates Screen NEGATIVE (NEGATIVE) 06/18/19 18:16 Ur Oxycodone Screen POSITIVE (NEGATIVE) H 06/18/19 18:16 Urine Methadone Screen NEGATIVE (NEGATIVE) 06/18/19 18:16 Ur Propoxyphene Screen NEGATIVE (NEGATIVE) 06/18/19 18:16 Acetaminophen < 10 ug/mL (10-30) L 06/18/19 18:09 Ur Barbiturates Screen NEGATIVE (NEGATIVE) 06/18/19 18:16 Ur Tricyclics Screen NEGATIVE (NEGATIVE) 06/18/19 18:16 Ur Phencyclidine Scrn NEGATIVE (NEGATIVE) 06/18/19 18:16 Ur Amphetamine Screen NEGATIVE (NEGATIVE) 06/18/19 18:16 U Methamphetamines Scrn NEGATIVE (NEGATIVE) 06/18/19 18:16 U Benzodiazepines Scrn NEGATIVE (NEGATIVE) 06/18/19 18:16 Urine Cocaine Screen NEGATIVE (NEGATIVE) 06/18/19 18:16 U Cannabinoids Screen NEGATIVE (NEGATIVE) 06/18/19 18:16 Ethyl Alcohol < 5.0 mg/dL 06/18/19 18:09 Serum Ketones NEGATIVE (NEGATIVE) 06/19/19 18:36 Blood Type A NEGATIVE 06/24/19 08:05 Antibody Screen NEGATIVE 06/24/19 08:05 Crossmatch IS Only See Detail 06/24/19 08:05 Sepsis Event Note (H) - Evaluation Current Stage of Sepsis: Sepsis Possible source of Sepsis: positive: Pulmonary - Sepsis Criteria Sepsis Criteria: Recorded Heart Rate greater than 90 bpm, Recorded Respiratory Rate greater than 20, Respiratory: Increasing oxygen requirements, WBC count greater than 12,000 or less than 4000, SBP drop more than 40mHg, MAP less than 65 mmHg, SBP less than 90 mmHg, Metabolic: lactate > 2 mmol/L, Hepatic: Bilirubin greater than 2mg/dl
--- NOTE | 2019-06-24 13:44 | CONSULTATION NOTE ---
Palliative Care Follow Up - Referral Referring Provider: April Williamson MD Time of Visit: [id number]; 3:23-018 Referral setting: Hospitalized patient Referral Reason: Met Colon CA/Pneumonia/Goals of Care - Information Sources Records reviewed: RN notes reviewed, Previous records reviewed History/Review of Systems obtained from: Patient, Caregiver Exam limitations: Clinical condition (patient able to engage in conversation; unclear how much is retaining) - History of Present Illness Update Brief HPI Update: This is a 34-year-old woman who has been hospitalized since 06/18 with severe pneumonia, sepsis, and acutely on admit with DKA. She is finally starting to respond, she does have a moist thick cough, with upper airway rhonchi. She does report she is working hard to be able to breathe. She is not hypoxic, but does present is quite weak. She does recall some of yesterday, but for the most part does not remember previous hospitalization. She does present with able to answer questions, and participate some in the conversation today. She reports she "feels like she had", still having pain in her right lower quadrant, she does present with symptoms of fluid overload, with increased taut abdomen, third spacing into her lower extremities, and pulling in her upper extremities. She has had a significant weight gain, and does appear uncomfortable. She does understand how sick she was, she wants to go home, and "be with the kids". Did discuss in the context of what Next, as far if she wanted to go home, she would need to accept help as Ramón could not do it on his own, and need to support for both himself and the kids. She does understand he needs to still work to be able to pay their bills, and support the children. She does admit "I am afraid of dying". Did spend some time discussing what these fears might be, she is unable to articulate them, and gets quite anxious and breathless when talking about difficult topic Social History - Living Situation Living arrangement: At home Living Situation: With spouse/s.o., With family Support System: She lives at home with her , who does work significantly long hours. They have 3 children, currently he has accepting support from family members to be able to manage at this point. He is unable to take off work, as there finances would not be able to sustain the household. He has a modified work schedule, and trying to be here as much as he can. He is having his mother come out, though she recently recovered from an illness as well, but she is available and willing to participate in supporting the family. Medications/Allergies - Medications Active Medication List: Active Medications Chlorhexidine Gluconate (Peridex) 15 ml PO BID AIRAM Last Admin: 06/24/19 08:00 Dose: 15 ml Fentanyl (Duragesic) 1 patch TOP Q72H AIRAM Last Admin: 06/22/19 11:14 Dose: 1 patch Fentanyl (Duragesic) 1 patch TOP Q72H AIRAM Last Admin: 06/22/19 11:14 Dose: 1 patch Guaifenesin/Codeine Phosphate (Robitussin Ac) 5 ml PO Q6HR PRN PRN Reason: Cough Last Admin: 06/21/19 03:50 Dose: 5 ml Sodium Chloride (Normal Saline 0.9%) 500 mls @ 0 mls/hr IV Q24H PRN PRN Reason: TKO RATE Last Infusion: 06/22/19 17:00 Dose: Infused Levofloxacin (Levaquin 750 Mg/150 Ml) 750 mg in 150 mls @ 100 mls/hr IV Q24H AIRAM Last Infusion: 06/23/19 20:06 Dose: Infused Acetaminophen (Ofirmev) 100 mls @ 400 mls/hr IV Q6HR PRN PRN Reason: Pain or Fever > 38C (100.4F) Last Admin: 06/24/19 09:57 Dose: 400 mls/hr Ampicillin Sodium/Sulbactam (Sodium 3 gm/ Sodium Chloride) 100 mls @ 200 mls/hr IV Q6HR AIRAM Last Admin: 06/24/19 12:59 Dose: 200 mls/hr Dextrose (D5w) 1,000 mls @ 83.333 mls/hr IV .Q12H AIRAM Last Admin: 06/24/19 09:57 Dose: 83.333 mls/hr Insulin Glargine (Lantus Solostar) 14 unit SUBQ QPM AIRAM Last Admin: 06/23/19 20:59 Dose: 14 unit Insulin Human Regular (Humulin R) 3 - 11 unit SUBQ Q6HR AIRAM; Protocol Last Admin: 06/24/19 12:23 Dose: 3 unit Lorazepam (Ativan Inj (Vial)) 0.5 mg IVP Q3H PRN PRN Reason: Restlessness Last Admin: 06/24/19 02:31 Dose: 0.5 mg Mineral Oil (Cavilon) 1 applic TOP PRN PRN PRN Reason: Skin Care Last Admin: 06/24/19 01:20 Dose: 1 applic Morphine Sulfate (Roxanol) 10 mg PO Q4HR PRN PRN Reason: PAIN Last Admin: 06/23/19 10:05 Dose: 10 mg Morphine Sulfate (Morphine (Carpuject)) 2 mg IVP Q3HR PRN PRN Reason: PAIN Last Admin: 06/24/19 09:57 Dose: 2 mg Ondansetron HCl (Zofran Inj) 4 mg IVP Q6HR PRN PRN Reason: Nausea / Vomiting Pantoprazole Sodium (Protonix) 40 mg IVP QDAC AIRAM Last Admin: 06/24/19 06:11 Dose: 40 mg Sodium Chloride (Normal Saline Flush 0.9%) 10 ml IVP 0100,0900,1700 [facility] Last Admin: 06/24/19 08:01 Dose: 10 ml Sodium Chloride (Normal Saline Flush 0.9%) 10 ml IVP PRN PRN PRN Reason: NEEDED PER PROVIDER ORDERS Last Admin: 06/22/19 07:10 Dose: 10 ml Sodium Chloride (Normal Saline Flush 0.9%) 20 ml IVP PRN PRN PRN Reason: After Blood Draw Last Admin: 06/21/19 05:40 Dose: 20 ml Insulin Glargine,Hum.rec.anlog [Lantus] 30 - 40 unit SQ QDBREAKFAST 02/13/16 Docusate Sodium 200 mg PO BID 06/27/18 Insulin Aspart [NovoLOG] 0 units SUBQ TID PRN MDD sliding scale 06/27/18 clonazePAM [Clonazepam] 0.5 mg PO TID PRN 06/27/18 Ondansetron [Zuplenz] 8 mg PO Q8HR PRN 11/02/18 Polyethylene Glycol 3350 [Miralax] 17 mg PO DAILY PRN 01/03/19 Prochlorperazine Maleate [Compazine] 10 mg PO Q6HR PRN 01/03/19 Potassium Chloride 20 meq PO BID 03/19/19 Insulin Glargine [Lantus Solostar] 20 units SQ QPM 03/21/19 Loperamide [Imodium] 2 mg PO PRN PRN MDD 8/tabs 04/25/19 Oxycodone HCl 10 mg PO Q3HR PRN MDD 8/24 hours 04/25/19 fentaNYL [Fentanyl 75mcg patch] 75 mcg TOP Q72H 04/25/19 - Allergies Allergies/Adverse Reactions: Allergies Allergy/AdvReac Type Severity Reaction Status Date / Time No Known Drug Allergies Allergy Verified 06/18/19 16:43 Review of Systems - Constitutional Constitutional: reports: Fatigue, Fever (remains elevated and feeling warm), Weakness, Poor appetite, Other (presents with temporal and upper extremity wasting;) - Eyes Eyes: reports: Other (difficulty focusing) - Ears, Nose & Throat Ears, Nose & Throat: reports: Dry mouth - Cardiovascular Cardiovascular: reports: Edema, Exertional dyspnea, Orthopnea - Respiratory Respiratory: reports: Cough (reports), SOB at rest (reports difficulty with breathing and cough) - Gastrointestinal Gastrointestinal: reports: Abdominal distention, Other (has liquid stool in colostomy usually firm) - Genitourinary Genitourinary: reports: Other (stanton catheter; c/o of "need to go") - Musculoskeletal Musculoskeletal: reports: Muscle aches, Stiffness, Limited range of motion, Muscle weakness, Other (has been bedbound; week and difficult with bed mobility) - Integumentary Integumentary: reports: Dryness, Nail changes (long and broken) - Neurological Neurological: reports: General weakness, Memory problems (does not recall the last few days; does remember some of yesterday) - Psychiatric Psychiatric: reports: Depression, Anxiety, Aggitation - Endocrine Endocrine: reports: Intolerance to heat - Hematologic/Lymphatic Hematologic/Lymphatic: reports: Anemia, Recurrent infections (currently receiving tx for sepsis/pneumonia) - All Other Systems All Other Systems: reports: Other (limited ROS with patient memory/agitation) Physical Exam - Vital Signs Vital Signs: Vital Signs x48h Temp Pulse Pulse Resp BP BP Pulse Ox 06/24/19 12:54 37.2 C 119 H 12 106/80 06/24/19 12:00 37.2 C 118 H 12 111/75 100 06/24/19 11:04 37.7 C H 126 H 18 103/67 06/24/19 11:00 37.7 C H 124 H 12 103/67 100 06/24/19 10:45 37.8 C H 129 H 19 100/66 06/24/19 10:39 37.8 C H 130 H 21 104/68 06/24/19 10:00 38.0 C H 131 H 19 104/68 100 06/24/19 08:00 37.7 C H 131 H 22 115/83 H 100 06/24/19 07:00 125 H 17 102/72 100 06/24/19 06:00 126 H 18 118/72 100 - Physical Exam General Appearance: positive: Moderate distress, Anxious, Lethargic, Cachetic Eyes Bilateral: positive: Other (some difficulty focusing) ENT: positive: Dry mucous membranes Neck: positive: Trachea midline. negative: No JVD (mild JVD noted) Cardiovascular: positive: Tachycardia Respiratory: positive: Diminished in bases, Rhonchi (upper airways) Abdomen: positive: Tenderness (RLQ), Guarding, Distended, Taut (ascitic) Skin: positive: Pallor, Dryness Extremities: positive: Pedal edema (developing third spacing;), Other (upper arms with pockets of dependent edema) Neurologic/Psychiatric: positive: Disoriented to time, Weakness, Slurred/abnml speech, Depressed mood/affect, Flat affect Palliative Care - POLST Patient has POLST: Yes POLST Status: DNR, Selective Treatment Pain: Pain worsening, Location (RLQ; ;), Comment (on duragesic 75 mcq total; using only few doses of IV MS 2mg; some intermittent "roxanol";) Tiredness/Fatigue: Severe (7-10) Drowsiness/Sedation: Moderate (4-6), Comment (feels like she is less confused today; though still not tracking well) Nausea: Mild (1-3) Depression: Severe (7-10) Anxiety: Severe (7-10), Comment (very anxious see PC conversation) Dyspnea: Moderate (4-6) Anorexia: Severe (7-10) (first try at meal today; few bites noted off breakfast tray) Sleep: Variable sleep pattern Constipation: No Feelings of wellbeing/Perceived Quality of Life: Poor, Worsening Performance Status: Patient has been bedbound since admitted on 06/18. There was an attempt to try and get her up today at the bedside chair, the hope was to be able to transfer her with a Nayely lift. She is quite weak, demonstrates poor bed mobility, and difficulty turning her and repositioning in bed. She told her though she wanted to get up and go for walk. She has had functional decline fairly dramatically over the last few weeks, but has been ambulatory for short distances in her house. - Palliative Care Discussion: Patient remains emotional and very difficult to get her to engage and address her current situation, she is able to express she is afraid of dying, but she does want to go home. She does not like being in the hospital and she continues to struggle with staff. We discussed in the context of being able to go home she would need most likely to go home with hospice, that her family and support system would need to happen most likely through this team. We did discuss if she wanted to be somewhere else, she wanted to know what "her options were". She reports the kids did not come because she has been able to talk since she has been in the hospital, at this point in time cannot really envision what support would look like and or dying in the context of being at home. Though she does reiterate she does want to be at home. Met with at 3:30. Now the patient is awake alert, feels like patient does need to be participating in the decision making but is clear he needs to have help in the home and she cannot dictate whether his mom is there or not. He has not told her that is the plan. I did discuss in the context if she wants to go home, most likely would need to do that with hospice support particularly if remains bedbound. He feels given her history, she will be quite determined to eat and drink and get moving again, he reports if there is any chance that she could get continued chemo he thinks she would choose that. He feels like that needs to be clarified before we can move forward with hospice. The choice then would be if she declined to have home health and continue with palliative care. Reviewed I had spoken with [facility], currently no opening, just accepted a patient so would be a while, and will send a packet to [facility], but if continues to improve then may not qualify at this point but could be an option in future or if takes another turn for worse here. Results - Lab Results Lab results reviewed: Yes Fish Bones: 06/24/19 07:17 06/24/19 07:17 Lab and Imaging Results: Lab Results x24hrs 06/24/19 06/24/19 06/24/19 Range/Units 08:05 07:17 07:17 WBC (4.8-10.8) x10^3/uL RBC (4.20-5.40) 10^6/uL Hgb (12.0-16.0) g/dL Hct (37.0-47.0) % MCV (81.0-99.0) fL MCH (27.0-31.0) pg MCHC (32.0-36.0) g/dL RDW (12.0-15.0) % Plt Count (130-450) 10^3/uL MPV (7.9-10.8) fL Neut # (Auto) (1.5-6.6) 10^3/uL Lymph # (Auto) (1.5-3.5) 10^3/uL [place] # (Auto) (0.0-1.0) 10^3/uL Eos # (Auto) (0.0-0.7) 10^3/uL Baso # (Auto) (0.0-0.1) 10^3/uL Absolute Nucleated RBC x10^3/uL Nucleated RBC % /100WBC Manual Slide Review Platelet Estimate (NORMAL) Platelet Morphology (NORMAL) RBC Morph Micro Appear (NORMAL) PT 23.0 H (9.9-12.6) secs INR 2.1 H (0.8-1.2) VBG pH (7.31-7.41) Ionized Calcium (1.15-1.33) mmol/L Sodium 140 (135-145) mmol/L Potassium 3.9 (3.5-5.0) mmol/L Chloride 119 H (101-111) mmol/L Carbon Dioxide 14 L (21-32) mmol/L Anion Gap 7.0 (6-13) BUN 13 (6-20) mg/dL Creatinine 0.5 (0.4-1.0) mg/dL Estimated GFR (MDRD) 140 (>89) Glucose 136 H (70-100) mg/dL POC Whole Bld Glucose (70 - 100) mg/dL Calcium 7.2 L (8.5-10.3) mg/dL Phosphorus (2.5-4.6) mg/dL Magnesium (1.7-2.8) mg/dL Blood Type A NEGATIVE Antibody Screen NEGATIVE Crossmatch IS Only See Detail 06/24/19 06/24/19 06/24/19 Range/Units 07:17 05:46 04:15 WBC 3.9 L (4.8-10.8) x10^3/uL RBC 2.39 L (4.20-5.40) 10^6/uL Hgb 7.1 L (12.0-16.0) g/dL Hct 23.7 L (37.0-47.0) % MCV 99.2 H (81.0-99.0) fL MCH 29.7 (27.0-31.0) pg MCHC 30.0 L (32.0-36.0) g/dL RDW 20.1 H (12.0-15.0) % Plt Count 28 L* (130-450) 10^3/uL MPV 12.4 H (7.9-10.8) fL Neut # (Auto) 1.8 (1.5-6.6) 10^3/uL Lymph # (Auto) 1.4 L (1.5-3.5) 10^3/uL [place] # (Auto) 0.5 (0.0-1.0) 10^3/uL Eos # (Auto) 0.1 (0.0-0.7) 10^3/uL Baso # (Auto) 0.0 (0.0-0.1) 10^3/uL Absolute Nucleated RBC 0.02 x10^3/uL Nucleated RBC % 0.5 /100WBC Manual Slide Review Indicated Platelet Estimate DECREASED (<130,000) (NORMAL) Platelet Morphology NORMAL APPEARANCE (NORMAL) RBC Morph Micro Appear 1+ ANISOCYTOSIS (NORMAL) PT (9.9-12.6) secs INR (0.8-1.2) VBG pH 7.360 (7.31-7.41) Ionized Calcium 1.09 L (1.15-1.33) mmol/L Sodium (135-145) mmol/L Potassium (3.5-5.0) mmol/L Chloride (101-111) mmol/L Carbon Dioxide (21-32) mmol/L Anion Gap (6-13) BUN (6-20) mg/dL Creatinine (0.4-1.0) mg/dL Estimated GFR (MDRD) (>89) Glucose (70-100) mg/dL POC Whole Bld Glucose 113 H (70 - 100) mg/dL Calcium (8.5-10.3) mg/dL Phosphorus (2.5-4.6) mg/dL Magnesium (1.7-2.8) mg/dL Blood Type Antibody Screen Crossmatch IS Only 06/24/19 06/24/19 06/23/19 Range/Units 04:15 00:02 20:56 WBC (4.8-10.8) x10^3/uL RBC (4.20-5.40) 10^6/uL Hgb (12.0-16.0) g/dL Hct (37.0-47.0) % MCV (81.0-99.0) fL MCH (27.0-31.0) pg MCHC (32.0-36.0) g/dL RDW (12.0-15.0) % Plt Count (130-450) 10^3/uL MPV (7.9-10.8) fL Neut # (Auto) (1.5-6.6) 10^3/uL Lymph # (Auto) (1.5-3.5) 10^3/uL [place] # (Auto) (0.0-1.0) 10^3/uL Eos # (Auto) (0.0-0.7) 10^3/uL Baso # (Auto) (0.0-0.1) 10^3/uL Absolute Nucleated RBC x10^3/uL Nucleated RBC % /100WBC Manual Slide Review Platelet Estimate (NORMAL) Platelet Morphology (NORMAL) RBC Morph Micro Appear (NORMAL) PT (9.9-12.6) secs INR (0.8-1.2) VBG pH (7.31-7.41) Ionized Calcium (1.15-1.33) mmol/L Sodium (135-145) mmol/L Potassium (3.5-5.0) mmol/L Chloride (101-111) mmol/L Carbon Dioxide (21-32) mmol/L Anion Gap (6-13) BUN (6-20) mg/dL Creatinine (0.4-1.0) mg/dL Estimated GFR (MDRD) (>89) Glucose (70-100) mg/dL POC Whole Bld Glucose 180 H 193 H (70 - 100) mg/dL Calcium (8.5-10.3) mg/dL Phosphorus 1.8 L (2.5-4.6) mg/dL Magnesium 1.8 (1.7-2.8) mg/dL Blood Type Antibody Screen Crossmatch IS Only 06/23/19 Range/Units 17:49 WBC (4.8-10.8) x10^3/uL RBC (4.20-5.40) 10^6/uL Hgb (12.0-16.0) g/dL Hct (37.0-47.0) % MCV (81.0-99.0) fL MCH (27.0-31.0) pg MCHC (32.0-36.0) g/dL RDW (12.0-15.0) % Plt Count (130-450) 10^3/uL MPV (7.9-10.8) fL Neut # (Auto) (1.5-6.6) 10^3/uL Lymph # (Auto) (1.5-3.5) 10^3/uL [place] # (Auto) (0.0-1.0) 10^3/uL Eos # (Auto) (0.0-0.7) 10^3/uL Baso # (Auto) (0.0-0.1) 10^3/uL Absolute Nucleated RBC x10^3/uL Nucleated RBC % /100WBC Manual Slide Review Platelet Estimate (NORMAL) Platelet Morphology (NORMAL) RBC Morph Micro Appear (NORMAL) PT (9.9-12.6) secs INR (0.8-1.2) VBG pH (7.31-7.41) Ionized Calcium (1.15-1.33) mmol/L Sodium (135-145) mmol/L Potassium (3.5-5.0) mmol/L Chloride (101-111) mmol/L Carbon Dioxide (21-32) mmol/L Anion Gap (6-13) BUN (6-20) mg/dL Creatinine (0.4-1.0) mg/dL Estimated GFR (MDRD) (>89) Glucose (70-100) mg/dL POC Whole Bld Glucose 228 H (70 - 100) mg/dL Calcium (8.5-10.3) mg/dL Phosphorus (2.5-4.6) mg/dL Magnesium (1.7-2.8) mg/dL Blood Type Antibody Screen Crossmatch IS Only Impression and Recommendations - Palliative Care Impression: This is a very complex 33-year-old woman with colon cancer metastatic disease to her liver, peritoneal carcinomatosis, and recurrent ascites. She is acutely being treated for her pneumonia, ongoing anemia, and high symptom burden. She is now somewhat more coherent, is aware she is in the hospital and has been in conversation regarding goals of care. Introduced discharging with hospice, patient wanting to know her "options". Palliative care to continue provide support regarding goals of care and transition plan. Recommendations/Counseling Done: 1. Anasarca. This is multifactorial in origin, patient with admitting weight of 63 kg, today presents 85. She has low albumin, bedbound, and continued poor intake but some improvement with lunch today. She does show signs and symptoms of third spacing in her lower extremities and upper extremities, as well as her abdomen is quite taut. Spoke with hospitalist, regarding above, will modify fluid orders and address. 2. Pain of neoplastic origin. Patient is with Duragesic 75 mcg patch, suspect some of her increased pain and discomfort is with her progressing abdominal distention, continue the drain Aspire, on a daily basis consider larger volumes, she is using both IV morphine and the Roxanol, would recommend transitioning to more oral dosing as she will be using this in the home setting. 3. Anxiety. Patient still presents with generalized anxiety disorder, she is a little bit more clear, and able to weigh benefits and burdens and understand some of the significance of information presented, but is able to state her goals which at this point time her to go home, she does not want to be in the h ospital but does understand she needs to be more stable and a little bit stronger. We did discuss in the context of what she could do for herself, which is to encourage her participation in care, increase her activity, and eating. We also discussed may need to accept help and compromise will need to happen in moving forward. She was only able to sustain the conversation for a limited amount of time due to her anxiety and existential distress. Agreed I would reach out to "other options" and follow up with Ramón regarding pending plans. 4. Advanced care planning. Did reach out to [facility] and spoke with Mayte [phone], will fax packet for future reference or if p atient needs transition plan from [facility]. Reached out to [facility], [facility] unable to accept at this time. Referral to [facility], do not have opening until Monday at this time, his mother is coming in on as far as timing and transitioning. Patient just now able to marginally participate in goals of care conversation, will continue to work with her regarding options and moving forward. Recommend evaluation and work with therapy to maximize functional status. Will follow up with her regular oncologist tomorrow. Time Spent: 85 minutes with greater than 50% of this done in counseling regarding goals of care, coordination of care with transition options, as well as hospital team, follow-up with hospitalist and [employer] regarding [employer] application.
[2019-06-24] MEDS: MORPHINE SOL 10 MG/0.5 ML SYRINGE PO PRN (14:41)
[2019-06-24] MEDS: levoFLOXacin 750 MG/150 ML 750 MG/150 ML BAG IV SCH (18:16)
[2019-06-24] MEDS: SODIUM CHLORIDE FLUSH 0.9% 10 ML SYRINGE IVP PRN (22:42)
[2019-06-24] MEDS: INSULIN GLARGINE 300 UNIT/3 ML PEN SUBQ SCH (22:47)
[2019-06-25] MEDS: MORPHINE SOL 10 MG/0.5 ML SYRINGE PO PRN ×4 (00:10→19:51)
[2019-06-25] MEDS: AMPICILLIN/SULBACTAM 3 GM in SODIUM CHLORIDE 0.9% MINIBAG 100 ML IV SCH ×5 (00:10→23:35)
[2019-06-25] MEDS: LORazepam 2 MG/ML VIAL IVP PRN ×4 (00:19→22:56)
[2019-06-25] MEDS: SODIUM CHLORIDE FLUSH 0.9% 10 ML SYRINGE IVP PRN ×6 (00:20→23:35)
[2019-06-25] MEDS: MORPHINE 2 MG/ML CARPUJECT IVP PRN ×4 (05:00→23:34)
[2019-06-25] MEDS: INSULIN REGULAR HUMAN 300 UNIT/3 ML VIAL SUBQ SCH ×4 (05:00→22:58)
[2019-06-25 05:15] LABS: BASOPHILS % (AUTO) 0.4 %; EOSINOPHILS # (AUTO) 0.1 10^3/uL (0.0-0.7); EOSINOPHILS % (AUTO) 1.2 %; HGB - HEMOGLOBIN 8.6 g/dL (12.0-16.0); LYMPHOCYTES # (AUTO) 1.7 10^3/uL (1.5-3.5); LYMPHOCYTES % (AUTO) 34.3 %; MEAN CORPUSCULAR HEMOGLOBIN 29.8 pg (27.0-31.0); MEAN CORPUSCULAR HGB CONC 30.7 g/dL (32.0-36.0); MEAN CORPUSCULAR VOLUME 96.9 fL (81.0-99.0); MEAN PLATELET VOLUME 11.3 fL (7.9-10.8); MONOCYTES # (AUTO) 0.8 10^3/uL (0.0-1.0); MONOCYTES % (AUTO) 16.3 %; NEUTROPHILS # (AUTO) 2.3 10^3/uL (1.5-6.6); NEUTROPHILS % (AUTO) 46.8 %; PLT - PLATELET COUNT 43 10^3/uL (130-450); RED BLOOD COUNT 2.89 10^6/uL (4.20-5.40); RED CELL DISTRIBUTION WIDTH 19.4 % (12.0-15.0); WHITE BLOOD COUNT 4.8 x10^3/uL (4.8-10.8)
[2019-06-25 05:19] LABS: VBG PH 7.351 (7.31-7.41)
[2019-06-25 05:30] LABS: CALCIUM 6.9 mg/dL (8.5-10.3); CREATININE 0.6 mg/dL (0.4-1.0); MAGNESIUM 1.5 mg/dL (1.7-2.8); PHOSPHORUS 2.5 mg/dL (2.5-4.6)
[2019-06-25] MEDS: PANTOPRAZOLE 40 MG VIAL IVP SCH (06:27)
[2019-06-25] MEDS ORDERED: MAGNESIUM SULFATE 2 GRAM 2 GM/50 ML BAG IV ONE (08:00)
[2019-06-25] MEDS: DEXTROSE 5% 1,000 ML IV SCH (08:36)
[2019-06-25] MEDS: CHLORHEXIDINE GLUCONATE 15 ML UDC PO SCH ×2 (08:46→22:09)
[2019-06-25] MEDS: SODIUM CHLORIDE FLUSH 0.9% 10 ML SYRINGE IVP SCH ×2 (08:46→15:51)
[2019-06-25] MEDS: fentaNYL 25 MCG PATCH TOP SCH (11:02)
[2019-06-25] MEDS: fentaNYL 50 MCG PATCH TOP SCH (11:02)
--- NOTE | 2019-06-25 13:19 | PROVIDER PROGRESS NOTE ---
Subjective - Prog Note Date Prog Note Date: 06/25/19 - Subjective Subjective: She continues to report feeling fatigued. States pain is well controlled. Denies dyspnea and abdominal pain. Continues to have a non-productive cough. Reports no fever or chills. Current Medications - Current Medications Current Medications: Active Medications Chlorhexidine Gluconate (Peridex) 15 ml PO BID AIRAM Last Admin: 06/25/19 08:46 Dose: 15 ml Fentanyl (Duragesic) 1 patch TOP Q72H AIRAM Last Admin: 06/25/19 11:02 Dose: 1 patch Fentanyl (Duragesic) 1 patch TOP Q72H AIRAM Last Admin: 06/25/19 11:02 Dose: 1 patch Guaifenesin/Codeine Phosphate (Robitussin Ac) 5 ml PO Q6HR PRN PRN Reason: Cough Last Admin: 06/21/19 03:50 Dose: 5 ml Sodium Chloride (Normal Saline 0.9%) 500 mls @ 0 mls/hr IV Q24H PRN PRN Reason: TKO RATE Last Infusion: 06/22/19 17:00 Dose: Infused Levofloxacin (Levaquin 750 Mg/150 Ml) 750 mg in 150 mls @ 100 mls/hr IV Q24H [facility] Last Infusion: 06/24/19 19:50 Dose: Infused Acetaminophen (Ofirmev) 100 mls @ 400 mls/hr IV Q6HR PRN PRN Reason: Pain or Fever > 38C (100.4F) Last Infusion: 06/24/19 22:12 Dose: Infused Ampicillin Sodium/Sulbactam (Sodium 3 gm/ Sodium Chloride) 100 mls @ 200 mls/hr IV Q6HR [facility] Last Admin: 06/25/19 12:15 Dose: 200 mls/hr Insulin Glargine (Lantus Solostar) 14 unit SUBQ QPM AIRAM Last Admin: 06/24/19 22:47 Dose: 14 unit Insulin Human Regular (Humulin R) 3 - 11 unit SUBQ Q6HR [facility]; Protocol Last Admin: 06/25/19 12:09 Dose: Not Given Lorazepam (Ativan Inj (Vial)) 0.5 mg IVP Q3H PRN PRN Reason: Restlessness Last Admin: 06/25/19 09:00 Dose: 0.5 mg Mineral Oil (Cavilon) 1 applic TOP PRN PRN PRN Reason: Skin Care Last Admin: 06/24/19 01:20 Dose: 1 applic Morphine Sulfate (Roxanol) 10 mg PO Q4HR PRN PRN Reason: PAIN Last Admin: 06/25/19 08:37 Dose: 10 mg Morphine Sulfate (Morphine (Carpuject)) 2 mg IVP Q3HR PRN PRN Reason: PAIN Last Admin: 06/25/19 11:03 Dose: 2 mg Multi-Ingredient Ointment (Zinc Oxide) 1 applic TOP PRN PRN PRN Reason: Skin Care Ondansetron HCl (Zofran Inj) 4 mg IVP Q6HR PRN PRN Reason: Nausea / Vomiting Pantoprazole Sodium (Protonix) 40 mg IVP QDAC AIRAM Last Admin: 06/25/19 06:27 Dose: 40 mg Sodium Chloride (Normal Saline Flush 0.9%) 10 ml IVP 0100,0900,1700 [facility] Last Admin: 06/25/19 08:46 Dose: Not Given Sodium Chloride (Normal Saline Flush 0.9%) 10 ml IVP PRN PRN PRN Reason: NEEDED PER PROVIDER ORDERS Last Admin: 06/25/19 06:27 Dose: 10 ml Sodium Chloride (Normal Saline Flush 0.9%) 20 ml IVP PRN PRN PRN Reason: After Blood Draw Last Admin: 06/21/19 05:40 Dose: 20 ml Insulin Glargine,Hum.rec.anlog [Lantus] 30 - 40 unit SQ QDBREAKFAST 02/13/16 Docusate Sodium 200 mg PO BID 06/27/18 Insulin Aspart [NovoLOG] 0 units SUBQ TID PRN MDD sliding scale 06/27/18 clonazePAM [Clonazepam] 0.5 mg PO TID PRN 06/27/18 Ondansetron [Zuplenz] 8 mg PO Q8HR PRN 11/02/18 Polyethylene Glycol 3350 [Miralax] 17 mg PO DAILY PRN 01/03/19 Prochlorperazine Maleate [Compazine] 10 mg PO Q6HR PRN 01/03/19 Potassium Chloride 20 meq PO BID 03/19/19 Insulin Glargine [Lantus Solostar] 20 units SQ QPM 03/21/19 Loperamide [Imodium] 2 mg PO PRN PRN MDD tabs 04/25/19 Oxycodone HCl 10 mg PO Q3HR PRN MDD 8/24 hours 04/25/19 fentaNYL [Fentanyl 75mcg patch] 75 mcg TOP Q72H 04/25/19 Objective - Vital Signs/Intake & Output Reviewed Vital Signs: Yes Vital Signs: Vital Signs x48h Temp Pulse Resp BP Pulse Ox 06/25/19 12:00 37.8 C H 130 H 18 119/86 H 96 06/25/19 11:10 38.0 C H 131 H 24 103/76 100 06/25/19 09:49 38.0 C H 06/25/19 08:00 38.0 C H 136 H 22 104/69 100 06/25/19 06:00 37.8 C H 128 H 19 96/ 100 Intake & Output: Intake & Output 06/22/19 06/23/19 06/24/19 06/25/19 23:59 23:59 23:59 23:59 Intake Total 5032.10 6285.052 3911.937 1860.000 Output Total 3456 2561 2674 435 Balance 1576.10 3724.052 1302.666 0877.000 - Objective General Appearance: positive: No acute distress, Alert, Lethargic Eyes Bilateral: positive: Normal inspection ENT: positive: ENT inspection nml Neck: positive: Nml inspection Respiratory: positive: No respiratory distress, Other (Diminished breath sounds.) Cardiovascular: positive: No murmur, Tachycardia. negative: Systolic murmur, Diastolic murmur Abdomen: positive: Non-tender, Other (Colostomy in place. Aspira catheter in place over the right side. Disended abdomen but soft.). negative: No distention Skin: positive: No rash, Warm, Dry Extremities: positive: No pedal edema Neurologic/Psychiatric: positive: Disoriented to time, Other (No focal motor deficits). negative: Disoriented to person, Disoriented to place - Lab Results Fish Bones: 06/25/19 04:44 06/25/19 04:44 Other Labs: Lab Results x24hrs 06/25/19 06/25/19 06/25/19 Range/Units 11:52 04:53 04:44 WBC 4.8 (4.8-10.8) x10^3/uL RBC 2.89 L (4.20-5.40) 10^6/uL Hgb 8.6 L (12.0-16.0) g/dL Hct 28.0 L (37.0-47.0) % MCV 96.9 (81.0-99.0) fL MCH 29.8 (27.0-31.0) pg MCHC 30.7 L (32.0-36.0) g/dL RDW 19.4 H (12.0-15.0) % Plt Count 43 L (130-450) 10^3/uL MPV 11.3 H (7.9-10.8) fL Neut # (Auto) 2.3 (1.5-6.6) 10^3/uL Lymph # (Auto) 1.7 (1.5-3.5) 10^3/uL [place] # (Auto) 0.8 (0.0-1.0) 10^3/uL Eos # (Auto) 0.1 (0.0-0.7) 10^3/uL Baso # (Auto) 0.0 (0.0-0.1) 10^3/uL Absolute Nucleated RBC 0.02 x10^3/uL Nucleated RBC % 0.4 /100WBC VBG pH (7.31-7.41) Ionized Calcium (1.15-1.33) mmol/L Sodium (135-145) mmol/L Potassium (3.5-5.0) mmol/L Chloride (101-111) mmol/L Carbon Dioxide (21-32) mmol/L Anion Gap (6-13) BUN (6-20) mg/dL Creatinine (0.4-1.0) mg/dL Estimated GFR (MDRD) (>89) Glucose (70-100) mg/dL POC Whole Bld Glucose 142 H 181 H (70 - 100) mg/dL Calcium (8.5-10.3) mg/dL Phosphorus (2.5-4.6) mg/dL Magnesium (1.7-2.8) mg/dL Ref Lab Test Result Blood Type Antibody Screen Crossmatch IS Only 06/25/19 06/25/19 06/24/19 Range/Units 04:44 04:44 22:43 WBC (4.8-10.8) x10^3/uL RBC (4.20-5.40) 10^6/uL Hgb (12.0-16.0) g/dL Hct (37.0-47.0) % MCV (81.0-99.0) fL MCH (27.0-31.0) pg MCHC (32.0-36.0) g/dL RDW (12.0-15.0) % Plt Count (130-450) 10^3/uL MPV (7.9-10.8) fL Neut # (Auto) (1.5-6.6) 10^3/uL Lymph # (Auto) (1.5-3.5) 10^3/uL [place] # (Auto) (0.0-1.0) 10^3/uL Eos # (Auto) (0.0-0.7) 10^3/uL Baso # (Auto) (0.0-0.1) 10^3/uL Absolute Nucleated RBC x10^3/uL Nucleated RBC % /100WBC VBG pH 7.351 (7.31-7.41) Ionized Calcium 1.09 L (1.15-1.33) mmol/L Sodium 135 (135-145) mmol/L Potassium 4.0 (3.5-5.0) mmol/L Chloride 115 H (101-111) mmol/L Carbon Dioxide 14 L (21-32) mmol/L Anion Gap 6.0 (6-13) BUN 13 (6-20) mg/dL Creatinine 0.6 (0.4-1.0) mg/dL Estimated GFR (MDRD) 113 (>89) Glucose 190 H (70-100) mg/dL POC Whole Bld Glucose 184 H (70 - 100) mg/dL Calcium 6.9 L (8.5-10.3) mg/dL Phosphorus 2.5 (2.5-4.6) mg/dL Magnesium 1.5 L (1.7-2.8) mg/dL Ref Lab Test Result Blood Type Antibody Screen Crossmatch IS Only 06/24/19 06/19/19 06/19/19 Range/Units 08:05 18:45 05:50 WBC (4.8-10.8) x10^3/uL RBC (4.20-5.40) 10^6/uL Hgb (12.0-16.0) g/dL Hct (37.0-47.0) % MCV (81.0-99.0) fL MCH (27.0-31.0) pg MCHC (32.0-36.0) g/dL RDW (12.0-15.0) % Plt Count (130-450) 10^3/uL MPV (7.9-10.8) fL Neut # (Auto) (1.5-6.6) 10^3/uL Lymph # (Auto) (1.5-3.5) 10^3/uL [place] # (Auto) (0.0-1.0) 10^3/uL Eos # (Auto) (0.0-0.7) 10^3/uL Baso # (Auto) (0.0-0.1) 10^3/uL Absolute Nucleated RBC x10^3/uL Nucleated RBC % /100WBC VBG pH (7.31-7.41) Ionized Calcium (1.15-1.33) mmol/L Sodium (135-145) mmol/L Potassium (3.5-5.0) mmol/L Chloride (101-111) mmol/L Carbon Dioxide (21-32) mmol/L Anion Gap (6-13) BUN (6-20) mg/dL Creatinine (0.4-1.0) mg/dL Estimated GFR (MDRD) (>89) Glucose (70-100) mg/dL POC Whole Bld Glucose (70 - 100) mg/dL Calcium (8.5-10.3) mg/dL Phosphorus (2.5-4.6) mg/dL Magnesium (1.7-2.8) mg/dL Ref Lab Test Result REPORT Blood Type A NEGATIVE A NEGATIVE Antibody Screen NEGATIVE Crossmatch IS Only See Detail 06/19/19 Range/Units 05:50 WBC (4.8-10.8) x10^3/uL RBC (4.20-5.40) 10^6/uL Hgb (12.0-16.0) g/dL Hct (37.0-47.0) % MCV (81.0-99.0) fL MCH (27.0-31.0) pg MCHC (32.0-36.0) g/dL RDW (12.0-15.0) % Plt Count (130-450) 10^3/uL MPV (7.9-10.8) fL Neut # (Auto) (1.5-6.6) 10^3/uL Lymph # (Auto) (1.5-3.5) 10^3/uL [place] # (Auto) (0.0-1.0) 10^3/uL Eos # (Auto) (0.0-0.7) 10^3/uL Baso # (Auto) (0.0-0.1) 10^3/uL Absolute Nucleated RBC x10^3/uL Nucleated RBC % /100WBC VBG pH (7.31-7.41) Ionized Calcium (1.15-1.33) mmol/L Sodium (135-145) mmol/L Potassium (3.5-5.0) mmol/L Chloride (101-111) mmol/L Carbon Dioxide (21-32) mmol/L Anion Gap (6-13) BUN (6-20) mg/dL Creatinine (0.4-1.0) mg/dL Estimated GFR (MDRD) (>89) Glucose (70-100) mg/dL POC Whole Bld Glucose (70 - 100) mg/dL Calcium (8.5-10.3) mg/dL Phosphorus (2.5-4.6) mg/dL Magnesium (1.7-2.8) mg/dL Ref Lab Test Result Blood Type A NEGATIVE Antibody Screen NEGATIVE Crossmatch IS Only See Detail ABX Reporting Has patient been on IV antibiotics over the past 48 hours?: Yes Sepsis Event Note (H) - Evaluation Current Stage of Sepsis: Sepsis Possible source of Sepsis: positive: Pulmonary - Sepsis Criteria Sepsis Criteria: Recorded Heart Rate greater than 90 bpm, Recorded Respiratory Rate greater than 20, Respiratory: Increasing oxygen requirements, WBC count gre ater than 12,000 or less than 4000, SBP drop more than 40mHg, MAP less than 65 mmHg, SBP less than 90 mmHg, Metabolic: lactate > 2 mmol/L, Hepatic: Bilirubin greater than 2mg/dl Assessment/Plan - Problem List (1) Severe sepsis Impression: Believed to be secondary to pneumonia. She is no longer hypotensive requiring pressors but is tachycardic and still febrile. Her initial blood cultures did grow Streptococcus pneumonia and she remains on Levaquin IV. Her prior peritoneal fluid did show WBC count [id number] with 97% neutrophils. The cultures were negative for bacteria. This may be secondary to her malignancy but due to her persistent fevers, we will recheck her peritoneal fluid again to rule out infection. (2) Altered mental status Impression: Was likely secondary to her DKA as well as sepsis. Her mental status has been improving she is oriented to self and location although not to time. She is still quite lethargic but this is also improving. Continue to treat underlying infection. Qualifiers: Altered mental status type: unspecified Qualified Code(s): R41.82 - Altered mental status, unspecified (3) Bacteremia due to Streptococcus pneumoniae Impression: The blood cultures have been negative. We will continue Levaquin to complete 14 days of treatment. (4) Pneumonia Impression: This was present on admission and secondary to Streptococcus pneumonia and located in the right lower lobe.She is now saturating well on room air. We will continue with Levaquin IV and transition to oral once her sepsis has resolved. Qualifiers: Pneumonia type: due to unspecified organism Laterality: right Lung location: middle lobe of lung (5) Chronic pain due to neoplasm Impression: Continue Roxanol as needed. (6) Colon cancer metastasized to liver Impression: He has history of adenocarcinoma of the colon with metastasis to the liver as well as malignant ascites. She is currently receiving treatment with FOLFOX. He [place] with [place]. [place] [facility] [place] (7) Thrombocytopenia Impression: Improving. Likely secondary to sepsis. No evidence of bleeding. Continue to hold chemical DVT prophylaxis. (8) Malignant ascites Impression: Continue to drain her abdomen 1.5 L a day. Will recheck the ascitic fluid to rule out bacterial peritonitis as a potential cause of her ongoing sepsis. (9) DM type 1 (diabetes mellitus, type 1) Impression: Blood glucose remains well controlled on her current regimen of insulin. Will increase her dose as her appetite increases. (10) Severe protein-calorie malnutrition Impression: Continue to encourage oral intake. Regular diet as tolerated as well as Ensure supplements. (11) DKA (diabetic ketoacidoses) Impression: This has resolved. Qualifiers: Diabetes mellitus type: type 1
[2019-06-25 15:14] LABS: BF COLOR YELLOW; BF SOURCE PERITONEAL; CC,BF RBC < 3000 /mm^3; LYMPHOCYTES %,BODY FLUID 4; MONOCYTES %,BODY FLUID 7 %
[2019-06-25] MEDS: LACTATED RINGERS 1,000 ML IV SCH ×2 (15:35→22:57)
--- NOTE | 2019-06-25 16:07 | CONSULTATION NOTE ---
Palliative Care Follow Up - Referral Referring Provider: April Sandoval MD Time of Visit: [id number]; [id number] Referral setting: Hospitalized patient Referral Reason: Met Colon Ca with liver mets/Goals of care - Information Sources Records reviewed: Previous records reviewed History/Review of Systems obtained from: Patient, Family (Ramón present) - History of Present Illness Update Brief HPI Update: This is a 34-year-old woman who has been hospitalized since 5 with severe pneumonia, sepsis and acutely on admit DKA. She is improving as far as her labs, she is much more awake and alert, is able to participate in conversation today, though remains quite easily overwhelmed. She does continue with a moist thick cough, with upper airway rhonchi. She continues to struggle some with her breathing though she does not present with hypoxia. Patient often presents with hypertension, she continues with fairly low blood pressures for her, and continues with tachycardia which is her norm. Much more clear and able to verbalize, she is able to recall previous to her rapid decline, she was feeling quite poorly, did not know what was happening, and had not been eating or drinking for a couple weeks. Agreement with Ramón her for further goals of care conversation that I would consult with Dr. Dior ARTHUR, her oncologist today. There is a CT of the abdomen and pelvis which she did review, other than her acute findings related to her pneumonia, there has been no significant change in her liver, she continues with extensive hepatic disease, but her CEA had been remaining fairly stable. She does have quite a bit disease in her peritoneum including a lobular mass in the distal descending colon which measures 3.5 cm as compared to before, and her other predominantly cystic masses in her abdomen have not had any further change. In the setting of this, she is still on first-line FOLFOX. We did discuss her decline in functional status, weight loss, currently she is bedbound, and acutely ill. Patient would need to be able to be ambulatory not wheelchair bound, some improvement in her nutritional status, before she would be able to be treated again. She has had a break before, as she herself chose to skip a couple treatments, but has been fairly consistently treated since 02/20/2019. The oncologist feels that if patient were to return to some level of function, improved and recovered from her acute illness, would still be appropriate for ongoing treatment versus hospice care at this point. Recognizing patient would need to improve clinically before she would be a candidate, this information was shared with both patient's and patient and hospitalist. This would be consistent with patient's expressed goals up to this point, to continue treatment as she "does not want to ". Under usual circumstances, patient would still have a prognosis of 1 to 2 years if she were able to restart treatment and it was clinically appropriate. She does present with cachexia, bedbound status, recurrent ascites, and difficulty eating, concern with her high symptom burden and failure to thrive about her ability to engage in what would be needed to turn this around. Social History - Living Situation Living arrangement: At home Living Situation: With spouse/s.o., With family Medications/Allergies - Medications Active Medication List: Active Medications Chlorhexidine Gluconate (Peridex) 15 ml PO BID [facility] Last Admin: 06/25/19 08:46 Dose: 15 ml Fentanyl (Duragesic) 1 patch TOP Q72H [facility] Last Admin: 06/25/19 11:02 Dose: 1 patch Fentanyl (Duragesic) 1 patch TOP Q72H [facility] Last Admin: 06/25/19 11:02 Dose: 1 patch Guaifenesin/Codeine Phosphate (Robitussin Ac) 5 ml PO Q6HR PRN PRN Reason: Cough Last Admin: 06/21/19 03:50 Dose: 5 ml Sodium Chloride (Normal Saline 0.9%) 500 mls @ 0 mls/hr IV Q24H PRN PRN Reason: TKO RATE Last Infusion: 06/22/19 17:00 Dose: Infused Levofloxacin (Levaquin 750 Mg/150 Ml) 750 mg in 150 mls @ 100 mls/hr IV Q24H [facility] Last Infusion: 06/24/19 19:50 Dose: Infused Acetaminophen (Ofirmev) 100 mls @ 400 mls/hr IV Q6HR PRN PRN Reason: Pain or Fever > 38C (100.4F) Last Infusion: 06/24/19 22:12 Dose: Infused Ampicillin Sodium/Sulbactam (Sodium 3 gm/ Sodium Chloride) 100 mls @ 200 mls/hr IV Q6HR [facility] Last Infusion: 06/25/19 12:50 Dose: Infused Lactated Ringer's (Lr) 1,000 mls @ 75 mls/hr IV .[id number] [facility] Last Admin: 06/25/19 15:35 Dose: 75 mls/hr Insulin Glargine (Lantus Solostar) 14 unit SUBQ QPM [facility] Last Admin: 06/24/19 22:47 Dose: 14 unit Insulin Human Regular (Humulin R) 3 - 11 unit SUBQ Q6HR [facility]; Protocol Last Admin: 06/25/19 12:09 Dose: Not Given Lorazepam (Ativan Inj (Vial)) 0.5 mg IVP Q3H PRN PRN Reason: Restlessness Last Admin: 06/25/19 09:00 Dose: 0.5 mg Mineral Oil (Cavilon) 1 applic TOP PRN PRN PRN Reason: Skin Care Last Admin: 06/24/19 01:20 Dose: 1 applic Morphine Sulfate (Roxanol) 10 mg PO Q4HR PRN PRN Reason: PAIN Last Admin: 06/25/19 15:49 Dose: 10 mg Morphine Sulfate (Morphine (Carpuject)) 2 mg IVP Q3HR PRN PRN Reason: PAIN Last Admin: 06/25/19 11:03 Dose: 2 mg Multi-Ingredient Ointment (Zinc Oxide) 1 applic TOP PRN PRN PRN Reason: Skin Care Ondansetron HCl (Zofran Inj) 4 mg IVP Q6HR PRN PRN Reason: Nausea / Vomiting Pantoprazole Sodium (Protonix) 40 mg IVP QDAC [facility] Last Admin: 06/25/19 06:27 Dose: 40 mg Sodium Chloride (Normal Saline Flush 0.9%) 10 ml IVP 0100,0900,1700 [facility] Last Admin: 06/25/19 15:51 Dose: Not Given Sodium Chloride (Normal Saline Flush 0.9%) 10 ml IVP PRN PRN PRN Reason: NEEDED PER PROVIDER ORDERS Last Admin: 06/25/19 06:27 Dose: 10 ml Sodium Chloride (Normal Saline Flush 0.9%) 20 ml IVP PRN PRN PRN Reason: After Blood Draw Last Admin: 06/21/19 05:40 Dose: 20 ml Insulin Glargine,Hum.rec.anlog [Lantus] 30 - 40 unit SQ QDBREAKFAST 02/13/16 Docusate Sodium 200 mg PO BID 06/27/18 Insulin Aspart [NovoLOG] 0 units SUBQ TID PRN MDD sliding scale 06/27/18 clonazePAM [Clonazepam] 0.5 mg PO TID PRN 06/27/18 Ondansetron [Zuplenz] 8 mg PO Q8HR PRN 11/02/18 Polyethylene Glycol 3350 [Miralax] 17 mg PO DAILY PRN 01/03/19 Prochlorperazine Maleate [Compazine] 10 mg PO Q6HR PRN 01/03/19 Potassium Chloride 20 meq PO BID 03/19/19 Insulin Glargine [Lantus Solostar] 20 units SQ QPM 03/21/19 Loperamide [Imodium] 2 mg PO PRN PRN MDD 8/tabs 04/25/19 Oxycodone HCl 10 mg PO Q3HR PRN MDD 8/24 hours 04/25/19 fentaNYL [Fentanyl 75mcg patch] 75 mcg TOP Q72H 04/25/19 - Allergies Allergies/Adverse Reactions: Allergies Allergy/AdvReac Type Severity Reaction Status Date / Time No Known Drug Allergies Allergy Verified 06/18/19 16:43 Review of Systems - Constitutional Constitutional: reports: Fatigue, Fever (persistant), Weakness, Poor appetite, Weight gain (another 4 kilg today). denies: Chills - Eyes Eyes: reports: Vision loss - Ears, Nose & Throat Ears, Nose & Throat: reports: Dry mouth - Cardiovascular Cardiovascular: reports: Edema, Exertional dyspnea, Decr. exercise tolerance - Respiratory Respiratory: reports: Cough (moist cough), SOB with exertion - Gastrointestinal Gastrointestinal: reports: Bloating, Poor appetite, Other (colostomy). denies: Nausea - Genitourinary Genitourinary: reports: Other (stanton) - Musculoskeletal Musculoskeletal: reports: Muscle aches, Stiffness, Limited range of motion, Muscle weakness, Other (bedbound; not accepting of bed mobililty or repositioning much) - Integumentary Integumentary: reports: Dryness - Neurological Neurological: reports: General weakness, Memory problems - Psychiatric Psychiatric: reports: Depression, Anxiety, Aggitation, Behavior disturbances - Endocrine Endocrine: reports: Other (diabetes type I; patient has always managed by "how she feels" reports wanting to refuse some of the care last night) - Hematologic/Lymphatic Hematologic/Lymphatic: reports: Anemia - All Other Systems All Other Systems: reports: Other (limited ROS) Physical Exam - Vital Signs Vital Signs: Vital Signs x48h Temp Pulse Resp BP Pulse Ox 06/25/19 16:06 37.5 C 125 H 22 90/62 100 06/25/19 15:47 90/63 06/25/19 15:15 37.5 C 124 H 19 83/61 L 100 06/25/19 12:00 37.8 C H 130 H 18 119/86 H 96 06/25/19 11:10 38.0 C H 131 H 24 103/76 100 06/25/19 09:49 38.0 C H - Physical Exam General Appearance: positive: Moderate distress, Anxious, Cachetic Eyes Bilateral: positive: Other (difficulty focusing) ENT: positive: Dry mucous membranes Cardiovascular: positive: Tachycardia Respiratory: positive: Rhonchi Abdomen: positive: Tenderness, Distended, Taut Skin: positive: Pallor, Dryness Extremities: positive: Pedal edema, Other (poolilng in dependent areas of arms) Neurologic/Psychiatric: positive: Disoriented to time, Weakness, Depressed mood/affect, Flat affect Palliative Care - POLST Patient has POLST: No POLST Status: DNR Pain: Pain improved, Location (Right lower quadrant, patient does report improvement in pain control, is not needing as much breakthrough pain medication. Reports this is not a barrier for getting up or moving at this point.) Drowsiness/Sedation: Comment (sleeping on and off most of day) Sleep: Sleeps poorly Constipation: No Performance Status: Patient has been bedbound, and not participatory in bed mobility with nurses. Effort was made to reinforce need to be come more functional to be able to improve, patient needs to be out of bed particularly for meals. This is reinforced both with myself and the hospitalist as far as being able to improve or "get better". Patient acknowledged understanding, and agreed to start tomorrow. Has been quite concerned about patient transitioning home and staying in the bed at all times, as he often does encourage her to be more participatory and she gets angry. Hoping staff will reinforce information frequently. - Palliative Care Discussion: Patient is awake and alert, she is somewhat disoriented to time, and difficulty putting all the pieces together as far as her journey over the last week. Dr. Black did a nice summary of where she has been, explained where she is today, and exploring she is still running fevers, and exploring if needs to go to "higher level of care' or another hospital to continue to treat and get better, both her and her are in agreement that would be acceptable. Did share information from the oncologist, underlying if patient does want to continue to focus on getting better, she would need to be functional which means ambulatory, be eating and drinking, and recovered from her acute illness. Reiterated her need to participate in her care plan to be able to do this, this is approach for many different angles. Patient at this point in time states her goals as she "still wants to live" and ongoing care at this time including further aggressive treatment acceptable. Given patient's alertness and ability to participate, and previous conversation prior to the meeting, patient does not want any further downers or heart questions regarding what she wants regarding end of life. Did speak and meet with later, regarding at this point in time hospice would come off the table. Patient does not express goals consistent with this, also would want to continue treatment, and this would not be a focus on comfort treatment. She would be eligible if desired to look at SNF placement for strengthening, or she could return home with support from home health though this would require her to be participatory in a program, there has been complications and complex interactions in the past particularly around patient p articipating in her care previously with her initial colostomy. Palliative care would continue to follow her to support her in her goals, or if she were to decline to assist with transition point to hospice if appropriate. Results - Lab Results Lab results reviewed: Yes Fish Bones: 06/25/19 04:44 06/25/19 04:44 Lab and Imaging Results: Lab Results x24hrs 06/25/19 06/25/19 06/25/19 Range/Units 13:45 11:52 04:53 WBC (4.8-10.8) x10^3/uL RBC (4.20-5.40) 10^6/uL Hgb (12.0-16.0) g/dL Hct (37.0-47.0) % MCV (81.0-99.0) fL MCH (27.0-31.0) pg MCHC (32.0-36.0) g/dL RDW (12.0-15.0) % Plt Count (130-450) 10^3/uL MPV (7.9-10.8) fL Neut # (Auto) (1.5-6.6) 10^3/uL Lymph # (Auto) (1.5-3.5) 10^3/uL Haskell # (Auto) (0.0-1.0) 10^3/uL Eos # (Auto) (0.0-0.7) 10^3/uL Baso # (Auto) (0.0-0.1) 10^3/uL Absolute Nucleated RBC x10^3/uL Nucleated RBC % /100WBC VBG pH (7.31-7.41) Ionized Calcium (1.15-1.33) mmol/L Sodium (135-145) mmol/L Potassium (3.5-5.0) mmol/L Chloride (101-111) mmol/L Carbon Dioxide (21-32) mmol/L Anion Gap (6-13) BUN (6-20) mg/dL Creatinine (0.4-1.0) mg/dL Estimated GFR (MDRD) (>89) Glucose (70-100) mg/dL POC Whole Bld Glucose 142 H 181 H (70 - 100) mg/dL Calcium (8.5-10.3) mg/dL Phosphorus (2.5-4.6) mg/dL Magnesium (1.7-2.8) mg/dL Fluid Source PERITONEAL Fluid Color YELLOW Fluid Clarity CLEAR Fluid WBC 526 /mm^3 Fluid RBC < 3000 /mm^3 Fluid Neutrophils % 89 % Fluid Lymphocytes % 4 Fluid Monocytes % 7 % Ref Lab Test Result Blood Type Antibody Screen Crossmatch IS Only 06/25/19 06/25/19 06/25/19 Range/Units 04:44 04:44 04:44 WBC 4.8 (4.8-10.8) x10^3/uL RBC 2.89 L (4.20-5.40) 10^6/uL Hgb 8.6 L (12.0-16.0) g/dL Hct 28.0 L (37.0-47.0) % MCV 96.9 (81.0-99.0) fL MCH 29.8 (27.0-31.0) pg MCHC 30.7 L (32.0-36.0) g/dL RDW 19.4 H (12.0-15.0) % Plt Count 43 L (130-450) 10^3/uL MPV 11.3 H (7.9-10.8) fL Neut # (Auto) 2.3 (1.5-6.6) 10^3/uL Lymph # (Auto) 1.7 (1.5-3.5) 10^3/uL Haskell # (Auto) 0.8 (0.0-1.0) 10^3/uL Eos # (Auto) 0.1 (0.0-0.7) 10^3/uL Baso # (Auto) 0.0 (0.0-0.1) 10^3/uL Absolute Nucleated RBC 0.02 x10^3/uL Nucleated RBC % 0.4 /100WBC VBG pH 7.351 (7.31-7.41) Ionized Calcium 1.09 L (1.15-1.33) mmol/L Sodium 135 (135-145) mmol/L Potassium 4.0 (3.5-5.0) mmol/L Chloride 115 H (101-111) mmol/L Carbon Dioxide 14 L (21-32) mmol/L Anion Gap 6.0 (6-13) BUN 13 (6-20) mg/dL Creatinine 0.6 (0.4-1.0) mg/dL Estimated GFR (MDRD) 113 (>89) Glucose 190 H (70-100) mg/dL POC Whole Bld Glucose (70 - 100) mg/dL Calcium 6.9 L (8.5-10.3) mg/dL Phosphorus 2.5 (2.5-4.6) mg/dL Magnesium 1.5 L (1.7-2.8) mg/dL Fluid Source Fluid Color Fluid Clarity Fluid WBC /mm^3 Fluid RBC /mm^3 Fluid Neutrophils % % Fluid Lymphocytes % Fluid Monocytes % % Ref Lab Test Result Blood Type Antibody Screen Crossmatch IS Only 06/24/19 06/24/19 06/19/19 Range/Units 22:43 08:05 18:45 WBC (4.8-10.8) x10^3/uL RBC (4.20-5.40) 10^6/uL Hgb (12.0-16.0) g/dL Hct (37.0-47.0) % MCV (81.0-99.0) fL MCH (27.0-31.0) pg MCHC (32.0-36.0) g/dL RDW (12.0-15.0) % Plt Count (130-450) 10^3/uL MPV (7.9-10.8) fL Neut # (Auto) (1.5-6.6) 10^3/uL Lymph # (Auto) (1.5-3.5) 10^3/uL Haskell # (Auto) (0.0-1.0) 10^3/uL Eos # (Auto) (0.0-0.7) 10^3/uL Baso # (Auto) (0.0-0.1) 10^3/uL Absolute Nucleated RBC x10^3/uL Nucleated RBC % /100WBC VBG pH (7.31-7.41) Ionized Calcium (1.15-1.33) mmol/L Sodium (135-145) mmol/L Potassium (3.5-5.0) mmol/L Chloride (101-111) mmol/L Carbon Dioxide (21-32) mmol/L Anion Gap (6-13) BUN (6-20) mg/dL Creatinine (0.4-1.0) mg/dL Estimated GFR (MDRD) (>89) Glucose (70-100) mg/dL POC Whole Bld Glucose 184 H (70 - 100) mg/dL Calcium (8.5-10.3) mg/dL Phosphorus (2.5-4.6) mg/dL Magnesium (1.7-2.8) mg/dL Fluid Source Fluid Color Fluid Clarity Fluid WBC /mm^3 Fluid RBC /mm^3 Fluid Neutrophils % % Fluid Lymphocytes % Fluid Monocytes % % Ref Lab Test Result REPORT Blood Type A NEGATIVE Antibody Screen NEGATIVE Crossmatch IS Only See Detail 06/19/19 06/19/19 Range/Units 05:50 05:50 WBC (4.8-10.8) x10^3/uL RBC (4.20-5.40) 10^6/uL Hgb (12.0-16.0) g/dL Hct (37.0-47.0) % MCV (81.0-99.0) fL MCH (27.0-31.0) pg MCHC (32.0-36.0) g/dL RDW (12.0-15.0) % Plt Count (130-450) 10^3/uL MPV (7.9-10.8) fL Neut # (Auto) (1.5-6.6) 10^3/uL Lymph # (Auto) (1.5-3.5) 10^3/uL Haskell # (Auto) (0.0-1.0) 10^3/uL Eos # (Auto) (0.0-0.7) 10^3/uL Baso # (Auto) (0.0-0.1) 10^3/uL Absolute Nucleated RBC x10^3/uL Nucleated RBC % /100WBC VBG pH (7.31-7.41) Ionized Calcium (1.15-1.33) mmol/L Sodium (135-145) mmol/L Potassium (3.5-5.0) mmol/L Chloride (101-111) mmol/L Carbon Dioxide (21-32) mmol/L Anion Gap (6-13) BUN (6-20) mg/dL Creatinine (0.4-1.0) mg/dL Estimated GFR (MDRD) (>89) Glucose (70-100) mg/dL POC Whole Bld Glucose (70 - 100) mg/dL Calcium (8.5-10.3) mg/dL Phosphorus (2.5-4.6) mg/dL Magnesium (1.7-2.8) mg/dL Fluid Source Fluid Color Fluid Clarity Fluid WBC /mm^3 Fluid RBC /mm^3 Fluid Neutrophils % % Fluid Lymphocytes % Fluid Monocytes % % Ref Lab Test Result Blood Type A NEGATIVE A NEGATIVE Antibody Screen NEGATIVE Crossmatch IS Only See Detail Impression and Recommendations - Palliative Care Impression: This is a 34-year-old woman who has been hospitalized since 5 with severe pneumonia, sepsis and acutely on admit DKA. She has made some improvements, but remains bedbound, continues with anasarca, she is able to participate in her decision-making today, though continues to be easily overwhelmed and concerns for her health literacy. Her goals are consistent with continuing to treat her acute process, she would like to continue with chemotherapy which would mean she would need improved functional and nutritional status, and willing to look at a higher level of care indicated. Palliative care to continue provide support for both patient and in this complex and fragile state Recommendations/Counseling Done: Family meeting with patient, , myself and Dr. Black with above summary and discussion. Time Spent: 55 minutes is greater than 50% of this done in counseling regarding goals of care and family meeting.
[2019-06-25] MEDS: levoFLOXacin 750 MG/150 ML 750 MG/150 ML BAG IV SCH (17:48)
[2019-06-25] MEDS: INSULIN GLARGINE 300 UNIT/3 ML PEN SUBQ SCH (22:58)
[2019-06-26] MEDS: MORPHINE SOL 10 MG/0.5 ML SYRINGE PO PRN ×4 (03:23→19:33)
[2019-06-26] MEDS: SODIUM CHLORIDE FLUSH 0.9% 10 ML SYRINGE IVP SCH ×3 (03:23→17:37)
[2019-06-26 04:52] LABS: BASOPHILS % (AUTO) 0.4 %; EOSINOPHILS % (AUTO) 0.8 %; HGB - HEMOGLOBIN 8.9 g/dL (12.0-16.0); LYMPHOCYTES # (AUTO) 1.8 10^3/uL (1.5-3.5); LYMPHOCYTES % (AUTO) 33.2 %; MEAN CORPUSCULAR HEMOGLOBIN 29.3 pg (27.0-31.0); MEAN CORPUSCULAR HGB CONC 30.4 g/dL (32.0-36.0); MEAN CORPUSCULAR VOLUME 96.4 fL (81.0-99.0); MEAN PLATELET VOLUME 11.5 fL (7.9-10.8); MONOCYTES # (AUTO) 0.9 10^3/uL (0.0-1.0); NEUTROPHILS # (AUTO) 2.5 10^3/uL (1.5-6.6); NEUTROPHILS % (AUTO) 47.5 %; PLT - PLATELET COUNT 57 10^3/uL (130-450); RED BLOOD COUNT 3.04 10^6/uL (4.20-5.40); RED CELL DISTRIBUTION WIDTH 19.9 % (12.0-15.0); WHITE BLOOD COUNT 5.3 x10^3/uL (4.8-10.8)
[2019-06-26 04:56] LABS: VBG PH 7.374 (7.31-7.41)
[2019-06-26 05:01] LABS: CALCIUM 7.3 mg/dL (8.5-10.3); CREATININE 0.6 mg/dL (0.4-1.0)
[2019-06-26] MEDS: MORPHINE 2 MG/ML CARPUJECT IVP PRN ×2 (05:49→12:22)
[2019-06-26 05:57] LABS: MAGNESIUM 1.9 mg/dL (1.7-2.8)
[2019-06-26] MEDS: SODIUM CHLORIDE FLUSH 0.9% 10 ML SYRINGE IVP PRN ×3 (06:07→19:34)
[2019-06-26] MEDS: INSULIN REGULAR HUMAN 300 UNIT/3 ML VIAL SUBQ SCH ×3 (06:07→18:24)
[2019-06-26] MEDS: AMPICILLIN/SULBACTAM 3 GM in SODIUM CHLORIDE 0.9% MINIBAG 100 ML IV SCH (06:08)
[2019-06-26] MEDS: PANTOPRAZOLE 40 MG VIAL IVP SCH (06:08)
--- NOTE | 2019-06-26 06:10 | XRAY Report ---
Reason: Right sided infiltrate. Possible effusion/plug. Procedure Date: 06/26/2019 Accession Number: [id number] / [id number] Procedure: XR - Chest 1 View X-Ray CPT Code: 44673 Final Report FULL RESULT: EXAM: CHEST RADIOGRAPHY EXAM DATE: 06/26/2019 06:00 AM. CLINICAL HISTORY: Right sided infiltrate. Possible effusion/plug. COMPARISON: CHEST 1 VIEW 06/22/2019 2:53 PM. TECHNIQUE: 1 view. FINDINGS: Lungs/Pleura: Low lung volumes. Decreased right lung multifocal opacities. No pleural effusion. No pneumothorax. Mediastinum: Within exam limitations, the cardiomediastinal contour is normal. Other: The right chest wall alex catheter tip is located in the region of the junction of the SVC and right atrium. IMPRESSION: Decreased right lung atelectasis with residual atelectasis versus consolidation in the setting of low lung volumes. [facility]
[2019-06-26] MEDS ORDERED: CALCIUM GLUCONATE 1,000 MG in SODIUM CHLORIDE 0.9% 50 ML IV ONE (08:00)
[2019-06-26 09:28] LABS: INR 1.9 (0.8-1.2)
[2019-06-26] MEDS ORDERED: CHERRY SYRUP 10 ML UDC PO ONE (10:45)
[2019-06-26] MEDS ORDERED: PHYTONADIONE 10 MG/ML AMP PO ONE (11:24)
[2019-06-26] MEDS: CHLORHEXIDINE GLUCONATE 15 ML UDC PO SCH ×2 (13:57→21:01)
[2019-06-26] MEDS: LACTATED RINGERS 1,000 ML IV SCH (13:57)
--- NOTE | 2019-06-26 14:25 | PROVIDER PROGRESS NOTE ---
Subjective - Prog Note Date Prog Note Date: 06/26/19 - Subjective Subjective: She was afebrile overnight. Continues to report a poor appetite and not much oral intake. Reports no pain at this time but reported that she felt discomfort when working with PT. Current Medications - Current Medications Current Medications: Active Medications Chlorhexidine Gluconate (Peridex) 15 ml PO BID [facility] Last Admin: 06/26/19 13:57 Dose: 15 ml Fentanyl (Duragesic) 1 patch TOP Q72H [facility] Last Admin: 06/25/19 11:02 Dose: 1 patch Fentanyl (Duragesic) 1 patch TOP Q72H [facility] Last Admin: 06/25/19 11:02 Dose: 1 patch Guaifenesin/Codeine Phosphate (Robitussin Ac) 5 ml PO Q6HR PRN PRN Reason: Cough Last Admin: 06/21/19 03:50 Dose: 5 ml Sodium Chloride (Normal Saline 0.9%) 500 mls @ 0 mls/hr IV Q24H PRN PRN Reason: TKO RATE Last Infusion: 06/22/19 17:00 Dose: Infused Levofloxacin (Levaquin 750 Mg/150 Ml) 750 mg in 150 mls @ 100 mls/hr IV Q24H [facility] Last Infusion: 06/25/19 19:30 Dose: Infused Acetaminophen (Ofirmev) 100 mls @ 400 mls/hr IV Q6HR PRN PRN Reason: Pain or Fever > 38C (100.4F) Last Infusion: 06/24/19 22:12 Dose: Infused Lactated Ringer's (Lr) 1,000 mls @ 75 mls/hr IV .[id number] [facility] Last Admin: 06/26/19 13:57 Dose: 75 mls/hr Insulin Glargine (Lantus Solostar) 14 unit SUBQ QPM [facility] Last Admin: 06/25/19 22:58 Dose: 14 unit Insulin Human Regular (Humulin R) 3 - 11 unit SUBQ Q6HR [facility]; Protocol Last Admin: 06/26/19 12:00 Dose: Not Given Lorazepam (Ativan Inj (Vial)) 0.5 mg IVP Q3H PRN PRN Reason: Restlessness Last Admin: 06/25/19 22:56 Dose: 0.5 mg Mineral Oil (Cavilon) 1 applic TOP PRN PRN PRN Reason: Skin Care Last Admin: 06/24/19 01:20 Dose: 1 applic Morphine Sulfate (Roxanol) 10 mg PO Q4HR PRN PRN Reason: PAIN Last Admin: 06/26/19 10:04 Dose: 10 mg Morphine Sulfate (Morphine (Carpuject)) 2 mg IVP Q3HR PRN PRN Reason: PAIN Last Admin: 06/26/19 12:22 Dose: 2 mg Multi-Ingredient Ointment (Zinc Oxide) 1 applic TOP PRN PRN PRN Reason: Skin Care Ondansetron HCl (Zofran Inj) 4 mg IVP Q6HR PRN PRN Reason: Nausea / Vomiting Pantoprazole Sodium (Protonix) 40 mg IVP QDAC [facility] Last Admin: 06/26/19 06:08 Dose: 40 mg Sodium Chloride (Normal Saline Flush 0.9%) 10 ml IVP 0100,0900,1700 [facility] Last Admin: 06/26/19 09:41 Dose: 10 ml Sodium Chloride (Normal Saline Flush 0.9%) 10 ml IVP PRN PRN PRN Reason: NEEDED PER PROVIDER ORDERS Last Admin: 06/26/19 06:08 Dose: 10 ml Sodium Chloride (Normal Saline Flush 0.9%) 20 ml IVP PRN PRN PRN Reason: After Blood Draw Last Admin: 06/21/19 05:40 Dose: 20 ml Insulin Glargine,Hum.rec.anlog [Lantus] 30 - 40 unit SQ QDBREAKFAST 02/13/16 Docusate Sodium 200 mg PO BID 06/27/18 Insulin Aspart [NovoLOG] 0 units SUBQ TID PRN MDD sliding scale 06/27/18 clonazePAM [Clonazepam] 0.5 mg PO TID PRN 06/27/18 Ondansetron [Zuplenz] 8 mg PO Q8HR PRN 11/02/18 Polyethylene Glycol 3350 [Miralax] 17 mg PO DAILY PRN 01/03/19 Prochlorperazine Maleate [Compazine] 10 mg PO Q6HR PRN 01/03/19 Potassium Chloride 20 meq PO BID 03/19/19 Insulin Glargine [Lantus Solostar] 20 units SQ QPM 03/21/19 Loperamide [Imodium] 2 mg PO PRN PRN MDD 8/tabs 09/12/19 Oxycodone HCl 10 mg PO Q3HR PRN MDD 8/24 hours 04/25/19 fentaNYL [Fentanyl 75mcg patch] 75 mcg TOP Q72H 04/25/19 Objective - Vital Signs/Intake & Output Reviewed Vital Signs: Yes Vital Signs: Vital Signs x48h Temp Pulse Pulse Resp BP BP Pulse Ox 06/26/19 12:00 37.2 C 123 H 14 139/85 H 100 06/26/19 10:15 121 H 105/71 06/26/19 09:00 119 H 11 L 85/66 L 100 06/26/19 07:00 37.4 C 122 H 15 100/68 100 Intake & Output: Intake & Output 06/23/19 06/24/19 06/25/19 06/26/19 23:59 23:59 23:59 23:59 Intake Total 6285.052 3911.937 3402.500 1580 Output Total 2561 2674 2250 349 Balance 3724.052 1765.973 2952.500 1231 - Objective General Appearance: positive: No acute distress, Alert, Lethargic Eyes Bilateral: positive: Normal inspection ENT: positive: ENT inspection nml Neck: positive: Nml inspection Respiratory: positive: No respiratory distress, Other (Diminshed in right base.) Cardiovascular: positive: No murmur, Tachycardia. negative: Bradycardia, Systolic murmur, Diastolic murmur Abdomen: positive: Non-tender, Other (Ostomy and aspira catheter in place.). negative: No distention, Tenderness Skin: positive: No rash, Warm, Dry Extremities: positive: No pedal edema Neurologic/Psychiatric: positive: Weakness. negative: Disoriented to person, Disoriented to place - Lab Results Fish Bones: 06/26/19 04:20 06/26/19 04:20 Other Labs: Lab Results x24hrs 06/26/19 06/26/19 06/26/19 Range/Units 11:34 09:12 04:23 WBC (4.8-10.8) x10^3/uL RBC (4.20-5.40) 10^6/uL Hgb (12.0-16.0) g/dL Hct (37.0-47.0) % MCV (81.0-99.0) fL MCH (27.0-31.0) pg MCHC (32.0-36.0) g/dL RDW (12.0-15.0) % Plt Count (130-450) 10^3/uL MPV (7.9-10.8) fL Neut # (Auto) (1.5-6.6) 10^3/uL Lymph # (Auto) (1.5-3.5) 10^3/uL [place] # (Auto) (0.0-1.0) 10^3/uL Eos # (Auto) (0.0-0.7) 10^3/uL Baso # (Auto) (0.0-0.1) 10^3/uL Absolute Nucleated RBC x10^3/uL Nucleated RBC % /100WBC PT 21.0 H (9.9-12.6) secs INR 1.9 H (0.8-1.2) VBG pH (7.31-7.41) Ionized Calcium (1.15-1.33) mmol/L Sodium (135-145) mmol/L Potassium (3.5-5.0) mmol/L Chloride (101-111) mmol/L Carbon Dioxide (21-32) mmol/L Anion Gap (6-13) BUN (6-20) mg/dL Creatinine (0.4-1.0) mg/dL Estimated GFR (MDRD) (>89) Glucose (70-100) mg/dL POC Whole Bld Glucose 99 142 H (70 - 100) mg/dL Calcium (8.5-10.3) mg/dL Magnesium (1.7-2.8) mg/dL Albumin (3.2-5.5) g/dL Fluid Source Fluid Color Fluid Clarity Fluid WBC /mm^3 Fluid RBC /mm^3 Fluid Neutrophils % % Fluid Lymphocytes % Fluid Monocytes % % 06/26/19 06/26/19 06/26/19 Range/Units 04:20 04:20 04:20 WBC 5.3 (4.8-10.8) x10^3/uL RBC 3.04 L (4.20-5.40) 10^6/uL Hgb 8.9 L (12.0-16.0) g/dL Hct 29.3 L (37.0-47.0) % MCV 96.4 (81.0-99.0) fL MCH 29.3 (27.0-31.0) pg MCHC 30.4 L (32.0-36.0) g/dL RDW 19.9 H (12.0-15.0) % Plt Count 57 L (130-450) 10^3/uL MPV 11.5 H (7.9-10.8) fL Neut # (Auto) 2.5 (1.5-6.6) 10^3/uL Lymph # (Auto) 1.8 (1.5-3.5) 10^3/uL [place] # (Auto) 0.9 (0.0-1.0) 10^3/uL Eos # (Auto) 0.0 (0.0-0.7) 10^3/uL Baso # (Auto) 0.0 (0.0-0.1) 10^3/uL Absolute Nucleated RBC 0.00 x10^3/uL Nucleated RBC % 0.0 /100WBC PT (9.9-12.6) secs INR (0.8-1.2) VBG pH (7.31-7.41) Ionized Calcium (1.15-1.33) mmol/L Sodium 136 (135-145) mmol/L Potassium 4.2 (3.5-5.0) mmol/L Chloride 114 H (101-111) mmol/L Carbon Dioxide 16 L (21-32) mmol/L Anion Gap 6.0 (6-13) BUN 16 (6-20) mg/dL Creatinine 0.6 (0.4-1.0) mg/dL Estimated GFR (MDRD) 113 (>89) Glucose 158 H (70-100) mg/dL POC Whole Bld Glucose (70 - 100) mg/dL Calcium 7.3 L (8.5-10.3) mg/dL Magnesium 1.9 (1.7-2.8) mg/dL Albumin 1.0 L (3.2-5.5) g/dL Fluid Source Fluid Color Fluid Clarity Fluid WBC /mm^3 Fluid RBC /mm^3 Fluid Neutrophils % % Fluid Lymphocytes % Fluid Monocytes % % 06/26/19 06/25/19 06/25/19 Range/Units 04:20 22:49 17:50 WBC (4.8-10.8) x10^3/uL RBC (4.20-5.40) 10^6/uL Hgb (12.0-16.0) g/dL Hct (37.0-47.0) % MCV (81.0-99.0) fL MCH (27.0-31.0) pg MCHC (32.0-36.0) g/dL RDW (12.0-15.0) % Plt Count (130-450) 10^3/uL MPV (7.9-10.8) fL Neut # (Auto) (1.5-6.6) 10^3/uL Lymph # (Auto) (1.5-3.5) 10^3/uL [place] # (Auto) (0.0-1.0) 10^3/uL Eos # (Auto) (0.0-0.7) 10^3/uL Baso # (Auto) (0.0-0.1) 10^3/uL Absolute Nucleated RBC x10^3/uL Nucleated RBC % /100WBC PT (9.9-12.6) secs INR (0.8-1.2) VBG pH 7.374 (7.31-7.41) Ionized Calcium 1.09 L (1.15-1.33) mmol/L Sodium (135-145) mmol/L Potassium (3.5-5.0) mmol/L Chloride (101-111) mmol/L Carbon Dioxide (21-32) mmol/L Anion Gap (6-13) BUN (6-20) mg/dL Creatinine (0.4-1.0) mg/dL Estimated GFR (MDRD) (>89) Glucose (70-100) mg/dL POC Whole Bld Glucose 163 H 238 H (70 - 100) mg/dL Calcium (8.5-10.3) mg/dL Magnesium (1.7-2.8) mg/dL Albumin (3.2-5.5) g/dL Fluid Source Fluid Color Fluid Clarity Fluid WBC /mm^3 Fluid RBC /mm^3 Fluid Neutrophils % % Fluid Lymphocytes % Fluid Monocytes % % 11/12/19 Range/Units 13:45 WBC (4.8-10.8) x10^3/uL RBC (4.20-5.40) 10^6/uL Hgb (12.0-16.0) g/dL Hct (37.0-47.0) % MCV (81.0-99.0) fL MCH (27.0-31.0) pg MCHC (32.0-36.0) g/dL RDW (12.0-15.0) % Plt Count (130-450) 10^3/uL MPV (7.9-10.8) fL Neut # (Auto) (1.5-6.6) 10^3/uL Lymph # (Auto) (1.5-3.5) 10^3/uL [place] # (Auto) (0.0-1.0) 10^3/uL Eos # (Auto) (0.0-0.7) 10^3/uL Baso # (Auto) (0.0-0.1) 10^3/uL Absolute Nucleated RBC x10^3/uL Nucleated RBC % /100WBC PT (9.9-12.6) secs INR (0.8-1.2) VBG pH (7.31-7.41) Ionized Calcium (1.15-1.33) mmol/L Sodium (135-145) mmol/L Potassium (3.5-5.0) mmol/L Chloride (101-111) mmol/L Carbon Dioxide (21-32) mmol/L Anion Gap (6-13) BUN (6-20) mg/dL Creatinine (0.4-1.0) mg/dL Estimated GFR (MDRD) (>89) Glucose (70-100) mg/dL POC Whole Bld Glucose (70 - 100) mg/dL Calcium (8.5-10.3) mg/dL Magnesium (1.7-2.8) mg/dL Albumin (3.2-5.5) g/dL Fluid Source PERITONEAL Fluid Color YELLOW Fluid Clarity CLEAR Fluid WBC 526 /mm^3 Fluid RBC < 3000 /mm^3 Fluid Neutrophils % 89 % Fluid Lymphocytes % 4 Fluid Monocytes % 7 % ABX Reporting Has patient been on IV antibiotics over the past 48 hours?: Yes Sepsis Event Note (H) - Evaluation Current Stage of Sepsis: Sepsis Possible source of Sepsis: positive: Pulmonary - Sepsis Criteria Sepsis Criteria: Recorded Heart Rate greater than 90 bpm, Recorded Respiratory Rate greater than 20, Respiratory: Increasing oxygen requirements, WBC count greater than 12,000 or less than 4000, SBP drop more than 40mHg, MAP less than 65 mmHg, SBP less than 90 mmHg, Metabolic: lactate > 2 mmol/L, Hepatic: Bi lirubin greater than 2mg/dl Assessment/Plan - Problem List (1) Severe sepsis Impression: This appears to be secondary to community-acquired pneumonia. Initial blood cultures did grow Streptococcus pneumonia and repeat cultures have been negative. She remains on Levaquin IV. She fortunately has not been febrile for the past 24 hours. We did recheck her peritoneal fluid which did show a white count of 500 with 89% neutrophils. Initial Gram stain shows white blood cells but no organisms. And her initial peritoneal fluid cultures came back negative for an organism. As she is receiving Levaquin IV this would be covering any bacterial peritonitis. I suspect her white count in the ascitic fluid is elevated secondary to her malignancy rather than an infection and that her sepsis is secondary to pneumonia. We will continue with Levaquin and transition to oral antibiotics tomorrow as long as she remains afebrile. (2) Bacteremia due to Streptococcus pneumoniae Impression: Johnnie blood cultures have been negative. We will continue Levaquin to complete 14 days of treatment. (3) Pneumonia Impression: This was present on admission secondary to coccus pneumonia located in the right lower lobe. She is not hypoxic and is no longer febrile. Will change to oral antibiotics in the morning as long as she remains afebrile. Qualifiers: Pneumonia type: due to unspecified organism Laterality: right Lung location: middle lobe of lung (4) Chronic pain due to neoplasm Impression: We will continue with Roxanol as needed. (5) Colon cancer metastasized to liver Impression: He has history of adenocarcinoma of the colon with metastasis to the liver as well as malignant ascites. She will continue follow-up with Dr. Luong on an outpatient basis and resume treatment as clinically indicated. She was receiving FOLFOX prior to this admission (6) Elevated INR Impression: INR is elevated at 1.9 and it was normal just this past month. This may be secondary to nutritional deficiency or her liver metastases. We will give her a dose of vitamin K orally today and recheck an INR in the morning. Fortunately there are no signs of bleeding. (7) Thrombocytopenia Impression: This was likely secondary to her sepsis and continues to improve. There are no signs of bleeding. (8) Malignant ascites Impression: The ascitic fluid does not appear to be of infectious origin at this time. Suspect her elevated peritoneal fluid white count is secondary to her malignancy rather than bacterial peritonitis. We will continue to drain her abdomen 1.5 L a day (9) DM type 1 (diabetes mellitus, type 1) Impression: Blood glucose has been well controlled on this lower dose of insulin. Will increase insulin as her oral intake improves. We will continue to encourage her to eat as much as tolerated. (10) Severe protein-calorie malnutrition Impression: We will continue to encourage oral intake. Regular diet as tolerated and continue with Ensure supplements. (11) DKA (diabetic ketoacidoses) Impression: This has resolved. Qualifiers: Diabetes mellitus type: type 1 (12) Altered mental status Impression: Was likely secondary to her DKA and sepsis. This has since resolved she is back to her baseline. Qualifiers: Altered mental status type: unspecified Qualified Code(s): R41.82 - Altered mental status, unspecified
[2019-06-26] MEDS: levoFLOXacin 750 MG/150 ML 750 MG/150 ML BAG IV SCH (17:38)
[2019-06-26] MEDS: INSULIN GLARGINE 300 UNIT/3 ML PEN SUBQ SCH ×2 (21:00→22:25)
[2019-06-27] MEDS: MORPHINE SOL 10 MG/0.5 ML SYRINGE PO PRN ×5 (00:51→18:35)
[2019-06-27] MEDS: INSULIN REGULAR HUMAN 300 UNIT/3 ML VIAL SUBQ SCH ×3 (01:17→13:27)
[2019-06-27] MEDS: SODIUM CHLORIDE FLUSH 0.9% 10 ML SYRINGE IVP SCH ×3 (01:20→16:00)
[2019-06-27] MEDS: MORPHINE 2 MG/ML CARPUJECT IVP PRN ×2 (03:36→07:53)
[2019-06-27 05:01] LABS: BASOPHILS % (AUTO) 0.4 %; EOSINOPHILS % (AUTO) 0.8 %; HGB - HEMOGLOBIN 8.9 g/dL (12.0-16.0); LYMPHOCYTES # (AUTO) 1.4 10^3/uL (1.5-3.5); LYMPHOCYTES % (AUTO) 28.6 %; MEAN CORPUSCULAR HEMOGLOBIN 29.6 pg (27.0-31.0); MEAN CORPUSCULAR HGB CONC 30.5 g/dL (32.0-36.0); MEAN PLATELET VOLUME 10.8 fL (7.9-10.8); MONOCYTES # (AUTO) 1.1 10^3/uL (0.0-1.0); MONOCYTES % (AUTO) 21.6 %; NEUTROPHILS # (AUTO) 2.4 10^3/uL (1.5-6.6); NEUTROPHILS % (AUTO) 47.4 %; PLT - PLATELET COUNT 81 10^3/uL (130-450); RED BLOOD COUNT 3.01 10^6/uL (4.20-5.40)
[2019-06-27 05:07] LABS: CALCIUM 7.2 mg/dL (8.5-10.3); CREATININE 0.7 mg/dL (0.4-1.0)
[2019-06-27 05:09] LABS: INR 1.5 (0.8-1.2); PT - PROTHROMBIN TIME 16.7 secs (9.9-12.6)
[2019-06-27] MEDS: LACTATED RINGERS 1,000 ML IV SCH (06:02)
[2019-06-27] MEDS: SODIUM CHLORIDE FLUSH 0.9% 10 ML SYRINGE IVP PRN (06:04)
[2019-06-27] MEDS: PANTOPRAZOLE 40 MG VIAL IVP SCH (06:04)
[2019-06-27] MEDS: CHLORHEXIDINE GLUCONATE 15 ML UDC PO SCH ×2 (10:30→21:47)
[2019-06-27] MEDS: ZINC OXIDE 20% OINT 30 GM TUBE TOP PRN (10:33)
[2019-06-27] MEDS: MIN OIL/DIMETHICON/COCONUT OIL 92 GM TUBE TOP PRN (10:33)
--- NOTE | 2019-06-27 14:43 | PROVIDER PROGRESS NOTE ---
Subjective - Prog Note Date Prog Note Date: 06/27/19 - Subjective Subjective: She reports feeling better today. Reports no chest pain or dyspnea. She states her pain is well controlled compared to yesterday. She states that her goal is once again to live. She would like to undergo chemotherapy again in the future and understands she must get stronger in order to receive therapy. She reports her appetite has improved today and she has been eating a little more. Current Medications - Current Medications Current Medications: Active Medications Chlorhexidine Gluconate (Peridex) 15 ml PO BID [facility] Last Admin: 06/27/19 10:30 Dose: 15 ml Fentanyl (Duragesic) 1 patch TOP Q72H [facility] Last Admin: 06/25/19 11:02 Dose: 1 patch Fentanyl (Duragesic) 1 patch TOP Q72H [facility] Last Admin: 06/25/19 11:02 Dose: 1 patch Guaifenesin/Codeine Phosphate (Robitussin Ac) 5 ml PO Q6HR PRN PRN Reason: Cough Last Admin: 06/21/19 03:50 Dose: 5 ml Heparin Sodium (Beef Lung) () 30 - 50 unit IVP PRN PRN PRN Reason: Central Line Protocol (<24 hr) Last Admin: 06/27/19 13:42 Dose: 50 unit Insulin Aspart (Novolog) 3 - 11 unit SUBQ 0800,1200,1700,2100 [facility]; Protocol Insulin Glargine (Lantus Solostar) 14 unit SUBQ QPM [facility] Last Admin: 06/26/19 22:25 Dose: Not Given Levofloxacin (Levaquin) 750 mg PO DAILY@1600 [facility] Mineral Oil (Cavilon) 1 applic TOP PRN PRN PRN Reason: Skin Care Last Admin: 06/27/19 10:33 Dose: 1 applic Mirtazapine (Remeron) 15 mg PO QPM [facility] Morphine Sulfate (Roxanol) 10 mg PO Q4HR PRN PRN Reason: PAIN Last Admin: 06/27/19 14:34 Dose: 10 mg Multi-Ingredient Ointment (Zinc Oxide) 1 applic TOP PRN PRN PRN Reason: Skin Care Last Admin: 06/27/19 10:33 Dose: 1 applic Ondansetron HCl (Zofran Inj) 4 mg IVP Q6HR PRN PRN Reason: Nausea / Vomiting Pantoprazole Sodium (Protonix) 40 mg IVP QDAC [facility] Last Admin: 06/27/19 06:04 Dose: 40 mg Sodium Chloride (Normal Saline Flush 0.9%) 10 ml IVP 0100,0900,1700 [facility] Last Admin: 06/27/19 07:53 Dose: 10 ml Sodium Chloride (Normal Saline Flush 0.9%) 10 ml IVP PRN PRN PRN Reason: NEEDED PER PROVIDER ORDERS Last Admin: 06/27/19 06:04 Dose: 10 ml Sodium Chloride (Normal Saline Flush 0.9%) 20 ml IVP PRN PRN PRN Reason: After Blood Draw Last Admin: 06/21/19 05:40 Dose: 20 ml Insulin Glargine,Hum.rec.anlog [Lantus] 30 - 40 unit SQ QDBREAKFAST 02/13/16 Docusate Sodium 200 mg PO BID 06/27/18 Insulin Aspart [NovoLOG] 0 units SUBQ TID PRN MDD sliding scale 06/27/18 clonazePAM [Clonazepam] 0.5 mg PO TID PRN 06/27/18 Ondansetron [Zuplenz] 8 mg PO Q8HR PRN 11/02/18 Polyethylene Glycol 3350 [Miralax] 17 mg PO DAILY PRN 01/03/19 Prochlorperazine Maleate [Compazine] 10 mg PO Q6HR PRN 01/03/19 Potassium Chloride 20 meq PO BID 03/19/19 Insulin Glargine [Lantus Solostar] 20 units SQ QPM 03/21/19 Loperamide [Imodium] 2 mg PO PRN PRN MDD 8/tabs 04/25/19 Oxycodone HCl 10 mg PO Q3HR PRN MDD 8/24 hours 04/25/19 fentaNYL [Fentanyl 75mcg patch] 75 mcg TOP Q72H 04/25/19 Objective - Vital Signs/Intake & Output Reviewed Vital Signs: Yes Vital Signs: Vital Signs x48h Temp Pulse Resp BP Pulse Ox 06/27/19 07:49 36.4 C L 121 H 16 110/65 100 Intake & Output: Intake & Output 06/24/19 06/25/19 06/26/19 06/27/19 23:59 23:59 23:59 23:59 Intake Total 3911.937 3402.500 2050 1780 Output Total 4142 9250 2212 1750 Balance 4714.172 1094.500 -162 30 - Objective General Appearance: positive: No acute distress, Alert Eyes Bilateral: positive: Normal inspection ENT: positive: ENT inspection nml Neck: positive: Nml inspection Respiratory: positive: No respiratory distress, Other (Diminished breath sounds). negative: Wheezes, Rales Cardiovascular: positive: No murmur, Tachycardia. negative: Systolic murmur, Diastolic murmur Abdomen: positive: Non-tender. negative: No distention, Guarding, Rebound Skin: positive: No rash, Warm, Dry Extremities: positive: Full ROM Neurologic/Psychiatric: positive: Weakness (No focal deficits.). negative: Disoriented to person, Disoriented to place - Lab Results Fish Bones: 06/27/19 04:40 06/27/19 04:40 Other Labs: Lab Results x24hrs 06/27/19 06/27/19 06/27/19 Range/Units 12:15 06:12 04:40 WBC (4.8-10.8) x10^3/uL RBC (4.20-5.40) 10^6/uL Hgb (12.0-16.0) g/dL Hct (37.0-47.0) % MCV (81.0-99.0) fL MCH (27.0-31.0) pg MCHC (32.0-36.0) g/dL RDW (12.0-15.0) % Plt Count (130-450) 10^3/uL MPV (7.9-10.8) fL Neut # (Auto) (1.5-6.6) 10^3/uL Lymph # (Auto) (1.5-3.5) 10^3/uL [place] # (Auto) (0.0-1.0) 10^3/uL Eos # (Auto) (0.0-0.7) 10^3/uL Baso # (Auto) (0.0-0.1) 10^3/uL Absolute Nucleated RBC x10^3/uL Nucleated RBC % /100WBC PT 16.7 H (9.9-12.6) secs INR 1.5 H (0.8-1.2) Sodium (135-145) mmol/L Potassium (3.5-5.0) mmol/L Chloride (101-111) mmol/L Carbon Dioxide (21-32) mmol/L Anion Gap (6-13) BUN (6-20) mg/dL Creatinine (0.4-1.0) mg/dL Estimated GFR (MDRD) (>89) Glucose (70-100) mg/dL POC Whole Bld Glucose 180 H 130 H (70 - 100) mg/dL Calcium (8.5-10.3) mg/dL 06/27/19 06/27/19 06/27/19 Range/Units 04:40 04:40 01:05 WBC 5.0 (4.8-10.8) x10^3/uL RBC 3.01 L (4.20-5.40) 10^6/uL Hgb 8.9 L (12.0-16.0) g/dL Hct 29.2 L (37.0-47.0) % MCV 97.0 (81.0-99.0) fL MCH 29.6 (27.0-31.0) pg MCHC 30.5 L (32.0-36.0) g/dL RDW 20.0 H (12.0-15.0) % Plt Count 81 L (130-450) 10^3/uL MPV 10.8 (7.9-10.8) fL Neut # (Auto) 2.4 (1.5-6.6) 10^3/uL Lymph # (Auto) 1.4 L (1.5-3.5) 10^3/uL [place] # (Auto) 1.1 H (0.0-1.0) 10^3/uL Eos # (Auto) 0.0 (0.0-0.7) 10^3/uL Baso # (Auto) 0.0 (0.0-0.1) 10^3/uL Absolute Nucleated RBC 0.00 x10^3/uL Nucleated RBC % 0.0 /100WBC PT (9.9-12.6) secs INR (0.8-1.2) Sodium 135 (135-145) mmol/L Potassium 4.0 (3.5-5.0) mmol/L Chloride 111 (101-111) mmol/L Carbon Dioxide 19 L (21-32) mmol/L Anion Gap 5.0 L (6-13) BUN 17 (6-20) mg/dL Creatinine 0.7 (0.4-1.0) mg/dL Estimated GFR (MDRD) 95 (>89) Glucose 145 H (70-100) mg/dL POC Whole Bld Glucose 163 H (70 - 100) mg/dL Calcium 7.2 L (8.5-10.3) mg/dL 06/26/19 06/26/19 Range/Units 20:45 18:03 WBC (4.8-10.8) x10^3/uL RBC (4.20-5.40) 10^6/uL Hgb (12.0-16.0) g/dL Hct (37.0-47.0) % MCV (81.0-99.0) fL MCH (27.0-31.0) pg MCHC (32.0-36.0) g/dL RDW (12.0-15.0) % Plt Count (130-450) 10^3/uL MPV (7.9-10.8) fL Neut # (Auto) (1.5-6.6) 10^3/uL Lymph # (Auto) (1.5-3.5) 10^3/uL [place] # (Auto) (0.0-1.0) 10^3/uL Eos # (Auto) (0.0-0.7) 10^3/uL Baso # (Auto) (0.0-0.1) 10^3/uL Absolute Nucleated RBC x10^3/uL Nucleated RBC % /100WBC PT (9.9-12.6) secs INR (0.8-1.2) Sodium (135-145) mmol/L Potassium (3.5-5.0) mmol/L Chloride (101-111) mmol/L Carbon Dioxide (21-32) mmol/L Anion Gap (6-13) BUN (6-20) mg/dL Creatinine (0.4-1.0) mg/dL Estimated GFR (MDRD) (>89) Glucose (70-100) mg/dL POC Whole Bld Glucose 188 H 195 H (70 - 100) mg/dL Calcium (8.5-10.3) mg/dL ABX Reporting Has patient been on IV antibiotics over the past 48 hours?: Yes Sepsis Event Note (H) - Evaluation Current Stage of Sepsis: Resolved Possible source of Sepsis: positive: Pulmonary - Sepsis Criteria Sepsis Criteria: Recorded Heart Rate greater than 90 bpm, Recorded Respiratory Rate greater than 20, Respiratory: Increasing oxygen requirements, WBC count greater than 12,000 or less than 4000, SBP drop more than 40mHg, MAP less than 65 mmHg, SBP less than 90 mmHg, Metabolic: lactate > 2 mmol/L, Hepatic: Bilirubin greater than 2mg/dl Assessment/Plan - Problem List (1) Severe sepsis Impression: Her sepsis was secondary to community-acquired pneumonia. Initial blood cultures grew to coccus pneumonia but the repeat have been negative. She has remained afebrile now for 48 hours, will transition to oral antibiotics.He does remain tachycardic but this does not appear to be related to her infection. We will continue Levaquin to complete 14 days of antibiotic therapy. (2) Bacteremia due to Streptococcus pneumoniae Impression: Repeat cultures have been negative. We will continue Levaquin to complete 14 days of treatment. (3) Pneumonia Impression: Was present on admission secondary to Streptococcus pneumonia. She is clinically improving and will continue Levaquin to complete 14 days given her bacteremia. Qualifiers: Pneumonia type: due to unspecified organism Laterality: right Lung location: middle lobe of lung Qualified Code(s): J18.9 - Pneumonia, unspecified organism (4) Tachycardia Impression: He has remained tachycardic in the 110s to 120s. This does not appear to be secondary to her sepsis as she has clinically improved from that aspect except for her heart rate. She does not appear dehydrated on exam either. Normal TSH on admission. I did speak with Cathy Osei of palliative care who is quite familiar with the patient. She states that the patient has always been tachycardic since she is known her with a heart rates always above 100 she was previously prescribed propanolol but the patient declined to take this. It appears her baseline heart rate is likely just in the 110s and this is where she is at right now. (5) Physical deconditioning Impression: She is quite deconditioned after this prolonged hospitalization. She was evaluated by physical therapy and would benefit from SNF. Will continue PT while hospitalized. Discussed with the patient the importance of her getting stronger as that she will need to improve her strength before she can undergo chemotherapy again for her malignancy. She expressed understanding of this and is agreeable to working with physical therapy. (6) Chronic pain due to neoplasm Impression: Pain has been better controlled. We will continue with Roxanol p.o. as needed (7) Thrombocytopenia Impression: Platelets continue to improve. There were likely decreased secondary to sepsis. (8) Elevated INR Impression: Her INR was elevated today and she was given vitamin K. Her INR today is down to 1.5. This is likely secondary to liver metastases and possibly nutrition no deficiency. Fortunately there is no evidence of bleeding at this time. (9) Colon cancer metastasized to liver Impression: She has history of adenocarcinoma of the colon with metastasis to the liver as well as malignant ascites. She will continue outpatient follow-up with her oncologist. (10) Malignant ascites Impression: Her ascitic fluid does not appear to be the source of her sepsis. The white count is likely elevated in her peritoneal fluid secondary to her malignancy. She is receiving Levaquin for her Streptococcus pneumonia and this would also cover peritonitis if it was bacterial. Continue to drain her abdomen 1.5 L a day. (11) DM type 1 (diabetes mellitus, type 1) Impression: Blood glucose remains well controlled on her lower dose of insulin. We will continue with Lantus 14 units at night and sliding scale. We will continue to encourage her to increase her oral intake. (12) Severe protein-calorie malnutrition Impression: Remains malnourished and discussed with her today the importance of nutrition as her goal is to receive chemotherapy again for her malignancy. She is agreeable to trying Remeron as an appetite stimulator. Will start her on Remeron and continue to encourage oral intake.
[2019-06-27] MEDS: levoFLOXacin 250 MG TABLET PO SCH (15:59)
[2019-06-27] MEDS: INSULIN ASPART 300 UNIT/3 ML PEN SUBQ SCH ×2 (19:59→21:05)
[2019-06-27] MEDS: INSULIN GLARGINE 300 UNIT/3 ML PEN SUBQ SCH (21:46)
[2019-06-27] MEDS: MIRTAZAPINE 15 MG TABLET PO SCH (21:50)
[2019-06-28] MEDS: SODIUM CHLORIDE FLUSH 0.9% 10 ML SYRINGE IVP SCH ×3 (01:31→16:35)
[2019-06-28 04:43] LABS: BASOPHILS % (AUTO) 0.5 %; EOSINOPHILS % (AUTO) 0.7 %; HGB - HEMOGLOBIN 8.5 g/dL (12.0-16.0); LYMPHOCYTES # (AUTO) 1.2 10^3/uL (1.5-3.5); LYMPHOCYTES % (AUTO) 27.3 %; MEAN CORPUSCULAR HEMOGLOBIN 30.1 pg (27.0-31.0); MEAN CORPUSCULAR HGB CONC 31.1 g/dL (32.0-36.0); MEAN CORPUSCULAR VOLUME 96.8 fL (81.0-99.0); MEAN PLATELET VOLUME 11.6 fL (7.9-10.8); MONOCYTES # (AUTO) 1.2 10^3/uL (0.0-1.0); MONOCYTES % (AUTO) 25.9 %; PLT - PLATELET COUNT 89 10^3/uL (130-450); RED BLOOD COUNT 2.82 10^6/uL (4.20-5.40); RED CELL DISTRIBUTION WIDTH 19.9 % (12.0-15.0); WHITE BLOOD COUNT 4.4 x10^3/uL (4.8-10.8)
[2019-06-28 04:46] LABS: CALCIUM 7.2 mg/dL (8.5-10.3); CREATININE 0.7 mg/dL (0.4-1.0)
[2019-06-28] MEDS: oxyCODONE 5 MG TABLET PO PRN ×3 (06:42→19:26)
[2019-06-28] MEDS: PANTOPRAZOLE 40 MG VIAL IVP SCH (06:45)
[2019-06-28] MEDS: SODIUM CHLORIDE FLUSH 0.9% 10 ML SYRINGE IVP PRN ×2 (06:45)
[2019-06-28] MEDS: INSULIN ASPART 300 UNIT/3 ML PEN SUBQ SCH ×4 (08:27→22:03)
[2019-06-28] MEDS: CHLORHEXIDINE GLUCONATE 15 ML UDC PO SCH ×2 (08:28→21:09)
[2019-06-28] MEDS: fentaNYL 25 MCG PATCH TOP SCH (11:57)
[2019-06-28] MEDS: fentaNYL 50 MCG PATCH TOP SCH (11:58)
--- NOTE | 2019-06-28 12:36 | PROVIDER PROGRESS NOTE ---
Subjective - Prog Note Date Prog Note Date: 06/28/19 - Subjective Subjective: She reports feeling okay today. States her pain is well controlled. Denies shortness of breath. She does not have as much of an appetite today. She did work with physical therapy earlier. Current Medications - Current Medications Current Medications: Active Medications Chlorhexidine Gluconate (Peridex) 15 ml PO BID AIRAM Last Admin: 06/28/19 08:28 Dose: Not Given Fentanyl (Duragesic) 1 patch TOP Q72H AIRAM Last Admin: 06/28/19 11:58 Dose: 1 patch Fentanyl (Duragesic) 1 patch TOP Q72H AIRAM Last Admin: 06/28/19 11:57 Dose: 1 patch Guaifenesin/Codeine Phosphate (Robitussin Ac) 5 ml PO Q6HR PRN PRN Reason: Cough Last Admin: 06/21/19 03:50 Dose: 5 ml Heparin Sodium (Beef Lung) () 30 - 50 unit IVP PRN PRN PRN Reason: Central Line Protocol (<24 hr) Last Admin: 06/28/19 06:45 Dose: 30 unit Insulin Aspart (Novolog) 3 - 11 unit SUBQ 0800,1200,1700,2100 AIRAM; Protocol Last Admin: 06/28/19 11:54 Dose: 3 unit Insulin Glargine (Lantus Solostar) 14 unit SUBQ QPM AIRAM Last Admin: 06/27/19 21:46 Dose: 14 unit Levofloxacin (Levaquin) 750 mg PO DAILY@1600 AIRAM Last Admin: 06/27/19 15:59 Dose: 750 mg Mineral Oil (Cavilon) 1 applic TOP PRN PRN PRN Reason: Skin Care Last Admin: 06/27/19 10:33 Dose: 1 applic Mirtazapine (Remeron) 15 mg PO QPM AIRAM Last Admin: 06/27/19 21:50 Dose: 15 mg Multi-Ingredient Ointment (Zinc Oxide) 1 applic TOP PRN PRN PRN Reason: Skin Care Last Admin: 06/27/19 10:33 Dose: 1 applic Ondansetron HCl (Zofran Inj) 4 mg IVP Q6HR PRN PRN Reason: Nausea / Vomiting Oxycodone HCl (Roxicodone) 10 mg PO Q4HR PRN PRN Reason: PAIN Last Admin: 06/28/19 06:42 Dose: 10 mg Pantoprazole Sodium (Protonix) 40 mg IVP QDAC AIRAM Last Admin: 06/28/19 06:45 Dose: 40 mg Sodium Chloride (Normal Saline Flush 0.9%) 10 ml IVP 0100,0900,1700 [facility] Last Admin: 06/28/19 06:45 Dose: 10 ml Sodium Chloride (Normal Saline Flush 0.9%) 10 ml IVP PRN PRN PRN Reason: NEEDED PER PROVIDER ORDERS Last Admin: 06/28/19 06:45 Dose: 10 ml Sodium Chloride (Normal Saline Flush 0.9%) 20 ml IVP PRN PRN PRN Reason: After Blood Draw Last Admin: 06/28/19 06:45 Dose: 20 ml Insulin Glargine,Hum.rec.anlog [Lantus] 30 - 40 unit SQ QDBREAKFAST 02/13/16 Docusate Sodium 200 mg PO BID 06/27/18 Insulin Aspart [NovoLOG] 0 units SUBQ TID PRN MDD sliding scale 06/27/18 clonazePAM [Clonazepam] 0.5 mg PO TID PRN 06/27/18 Ondansetron [Zuplenz] 8 mg PO Q8HR PRN 11/02/18 Polyethylene Glycol 3350 [Miralax] 17 mg PO DAILY PRN 01/03/19 Prochlorperazine Maleate [Compazine] 10 mg PO Q6HR PRN 01/03/19 Potassium Chloride 20 meq PO BID 03/19/19 Insulin Glargine [Lantus Solostar] 20 units SQ QPM 03/21/19 Loperamide [Imodium] 2 mg PO PRN PRN MDD 8/tabs 04/25/19 Oxycodone HCl 10 mg PO Q3HR PRN MDD 8/24 hours 04/25/19 fentaNYL [Fentanyl 75mcg patch] 75 mcg TOP Q72H 04/25/19 Objective - Vital Signs/Intake & Output Reviewed Vital Signs: Yes Vital Signs: Vital Signs x48h Temp Pulse Resp BP Pulse Ox 06/28/19 07:28 36.6 C 118 H 18 113/69 97 Intake & Output: Intake & Output 06/25/19 06/26/19 06/27/19 06/28/19 23:59 23:59 23:59 23:59 Intake Total 3402.500 0 2280 175 Output Total 2250 2212 2200 1875 Balance 4092.500 -162 80 -1700 - Objective General Appearance: positive: No acute distress, Alert Eyes Bilateral: positive: Normal inspection ENT: positive: ENT inspection nml Neck: positive: Nml inspection Respiratory: positive: No respiratory distress. negative: Wheezes, Rales Cardiovascular: positive: No murmur, Tachycardia Abdomen: positive: Non-tender, Other (Ostomy in placed as well as aspira catheter.). negative: No distention Skin: positive: No rash, Warm, Dry Extremities: positive: Pedal edema (+1 pitting edema in lower extremities.) Neurologic/Psychiatric: positive: Oriented x3, Weakness (General motor weakness but no focal deficits.) - Lab Results Fish Bones: 06/28/19 04:15 06/28/19 04:15 Other Labs: Lab Results x24hrs 06/28/19 06/28/19 06/28/19 Range/Units 11:12 07:23 04:15 WBC (4.8-10.8) x10^3/uL RBC (4.20-5.40) 10^6/uL Hgb (12.0-16.0) g/dL Hct (37.0-47.0) % MCV (81.0-99.0) fL MCH (27.0-31.0) pg MCHC (32.0-36.0) g/dL RDW (12.0-15.0) % Plt Count (130-450) 10^3/uL MPV (7.9-10.8) fL Neut # (Auto) (1.5-6.6) 10^3/uL Lymph # (Auto) (1.5-3.5) 10^3/uL Roosevelt # (Auto) (0.0-1.0) 10^3/uL Eos # (Auto) (0.0-0.7) 10^3/uL Baso # (Auto) (0.0-0.1) 10^3/uL Absolute Nucleated RBC x10^3/uL Nucleated RBC % /100WBC Sodium 134 L (135-145) mmol/L Potassium 4.2 (3.5-5.0) mmol/L Chloride 110 (101-111) mmol/L Carbon Dioxide 17 L (21-32) mmol/L Anion Gap 7.0 (6-13) BUN 20 (6-20) mg/dL Creatinine 0.7 (0.4-1.0) mg/dL Estimated GFR (MDRD) 95 (>89) Glucose 182 H (70-100) mg/dL POC Whole Bld Glucose 145 H 121 H (70 - 100) mg/dL Calcium 7.2 L (8.5-10.3) mg/dL Ref Lab Test Result 06/28/19 06/27/19 06/27/19 Range/Units 04:15 21:03 16:31 WBC 4.4 L (4.8-10.8) x10^3/uL RBC 2.82 L (4.20-5.40) 10^6/uL Hgb 8.5 L (12.0-16.0) g/dL Hct 27.3 L (37.0-47.0) % MCV 96.8 (81.0-99.0) fL MCH 30.1 (27.0-31.0) pg MCHC 31.1 L (32.0-36.0) g/dL RDW 19.9 H (12.0-15.0) % Plt Count 89 L (130-450) 10^3/uL MPV 11.6 H (7.9-10.8) fL Neut # (Auto) 2.0 (1.5-6.6) 10^3/uL Lymph # (Auto) 1.2 L (1.5-3.5) 10^3/uL Roosevelt # (Auto) 1.2 H (0.0-1.0) 10^3/uL Eos # (Auto) 0.0 (0.0-0.7) 10^3/uL Baso # (Auto) 0.0 (0.0-0.1) 10^3/uL Absolute Nucleated RBC 0.00 x10^3/uL Nucleated RBC % 0.0 /100WBC Sodium (135-145) mmol/L Potassium (3.5-5.0) mmol/L Chloride (101-111) mmol/L Carbon Dioxide (21-32) mmol/L Anion Gap (6-13) BUN (6-20) mg/dL Creatinine (0.4-1.0) mg/dL Estimated GFR (MDRD) (>89) Glucose (70-100) mg/dL POC Whole Bld Glucose 234 H 175 H (70 - 100) mg/dL Calcium (8.5-10.3) mg/dL Ref Lab Test Result 06/25/19 06/25/19 Range/Units 13:45 13:45 WBC (4.8-10.8) x10^3/uL RBC (4.20-5.40) 10^6/uL Hgb (12.0-16.0) g/dL Hct (37.0-47.0) % MCV (81.0-99.0) fL MCH (27.0-31.0) pg MCHC (32.0-36.0) g/dL RDW (12.0-15.0) % Plt Count (130-450) 10^3/uL MPV (7.9-10.8) fL Neut # (Auto) (1.5-6.6) 10^3/uL Lymph # (Auto) (1.5-3.5) 10^3/uL Roosevelt # (Auto) (0.0-1.0) 10^3/uL Eos # (Auto) (0.0-0.7) 10^3/uL Baso # (Auto) (0.0-0.1) 10^3/uL Absolute Nucleated RBC x10^3/uL Nucleated RBC % /100WBC Sodium (135-145) mmol/L Potassium (3.5-5.0) mmol/L Chloride (101-111) mmol/L Carbon Dioxide (21-32) mmol/L Anion Gap (6-13) BUN (6-20) mg/dL Creatinine (0.4-1.0) mg/dL Estimated GFR (MDRD) (>89) Glucose (70-100) mg/dL POC Whole Bld Glucose (70 - 100) mg/dL Calcium (8.5-10.3) mg/dL Ref Lab Test Result REPORT REPORT ABX Reporting Has patient been on IV antibiotics over the past 48 hours?: No Sepsis Event Note (H) - Evaluation Current Stage of Sepsis: Resolved Possible source of Sepsis: positive: Pulmonary - Sepsis Criteria Sepsis Criteria: Recorded Heart Rate greater than 90 bpm, Recorded Respiratory Rate greater than 20, Respiratory: Increasing oxygen requirements, WBC count greater than 12,000 or less than 4000, SBP drop more than 40mHg, MAP less than 65 mmHg, SBP less than 90 mmHg, Metabolic: lactate > 2 mmol/L, Hepatic: Bilirubin greater than 2mg/dl Assessment/Plan - Problem List (1) Bacteremia due to Streptococcus pneumoniae Impression: Repeat blood cultures have been negative. We will continue Levaquin orally for 5 more days to complete 14 days of treatment (2) Pneumonia Impression: This was present on admission and secondary to Streptococcus pneumonia and located in the right middle/lower lobe. Clinically, she is improving. She will continue Levaquin for her bacteremia. Qualifiers: Pneumonia type: due to unspecified organism Laterality: right Lung location: middle lobe of lung Qualified Code(s): J18.9 - Pneumonia, unspecified organism (3) Tachycardia Impression: She remains tacky in the 110s. After speaking with palliative care, this appears to be her baseline. She does not appear septic or dehydrated. Her TSH was normal. She decline a beta-lyle in the past. (4) Physical deconditioning Impression: Remains quite deconditioned after this prolonged hospitalization. She continues to work with physical therapy. She is pending placement to a detention facility. Continue PT while hospitalized. (5) Chronic pain due to neoplasm Impression: Pain has been well controlled. We will continue fentanyl patch and oxycodone as needed. (6) Thrombocytopenia Impression: Was initially secondary to sepsis. Her platelets continue to rise and are nearly within normal limits. No signs of bleeding. (7) Elevated INR Impression: INR was elevated at 1.9 but has improved to 1.5 after oral vitamin K. This is likely secondary to her liver metastasis or nutritional deficiency. She will need her INR monitored on an outpatient basis. (8) Colon cancer metastasized to liver Impression: She will need to continue to follow-up with her oncologist on an outpatient basis. (9) Malignant ascites Impression: We will continue to drain 1.5 L a day via her Aspira catheter. (10) DM type 1 (diabetes mellitus, type 1) Impression: Blood glucose has been relatively well controlled. We will continue her on Lantus 14 units at night plus a sliding scale. We will likely discharge her on the same regimen given her poor oral intake. (11) Severe protein-calorie malnutrition Impression: Continue to encourage the importance of nutrition and encourage her to increase her oral intake. We will continue with Remeron as an appetite stimulator. (12) Severe sepsis Impression: Has resolved. It was secondary to pneumonia with bacteremia.
[2019-06-28] MEDS: levoFLOXacin 250 MG TABLET PO SCH (16:35)
[2019-06-28] MEDS: MIRTAZAPINE 15 MG TABLET PO SCH (21:06)
[2019-06-28] MEDS: MIN OIL/DIMETHICON/COCONUT OIL 92 GM TUBE TOP PRN (21:07)
[2019-06-28] MEDS: ZINC OXIDE 20% OINT 30 GM TUBE TOP PRN (21:07)
[2019-06-28] MEDS: INSULIN GLARGINE 300 UNIT/3 ML PEN SUBQ SCH (22:03)
[2019-06-29] MEDS: oxyCODONE 5 MG TABLET PO PRN ×5 (00:15→18:49)
[2019-06-29] MEDS: SODIUM CHLORIDE FLUSH 0.9% 10 ML SYRINGE IVP SCH ×3 (00:15→20:58)
[2019-06-29] MEDS: SODIUM CHLORIDE FLUSH 0.9% 10 ML SYRINGE IVP PRN ×2 (06:24→14:39)
[2019-06-29] MEDS: PANTOPRAZOLE 40 MG VIAL IVP SCH (06:24)
[2019-06-29] MEDS: INSULIN ASPART 300 UNIT/3 ML PEN SUBQ SCH ×4 (08:21→20:59)
[2019-06-29] MEDS: CHLORHEXIDINE GLUCONATE 15 ML UDC PO SCH ×2 (08:22→21:09)
--- NOTE | 2019-06-29 14:57 | PROVIDER PROGRESS NOTE ---
Subjective - Prog Note Date Prog Note Date: 06/29/19 - Subjective Subjective: He continues to report feeling well. She was able to get out of bed again today and work with physical therapy. She states her pain has been well controlled except when working with physical therapy. Current Medications - Current Medications Current Medications: Active Medications Chlorhexidine Gluconate (Peridex) 15 ml PO BID AIRAM Last Admin: 06/29/19 08:22 Dose: 15 ml Fentanyl (Duragesic) 1 patch TOP Q72H AIRAM Last Admin: 06/28/19 11:58 Dose: 1 patch Fentanyl (Duragesic) 1 patch TOP Q72H AIRAM Last Admin: 06/28/19 11:57 Dose: 1 patch Guaifenesin/Codeine Phosphate (Robitussin Ac) 5 ml PO Q6HR PRN PRN Reason: Cough Last Admin: 06/21/19 03:50 Dose: 5 ml Heparin Sodium (Beef Lung) () 30 - 50 unit IVP PRN PRN PRN Reason: Central Line Protocol (<24 hr) Last Admin: 06/29/19 14:38 Dose: 50 unit Insulin Aspart (Novolog) 3 - 11 unit SUBQ 0800,1200,1700,2100 AIRAM; Protocol Last Admin: 06/29/19 12:03 Dose: 9 unit Insulin Glargine (Lantus Solostar) 14 unit SUBQ QPM AIRAM Last Admin: 06/28/19 22:03 Dose: Not Given Levofloxacin (Levaquin) 750 mg PO DAILY@1600 AIRAM Last Admin: 06/28/19 16:35 Dose: 750 mg Mineral Oil (Cavilon) 1 applic TOP PRN PRN PRN Reason: Skin Care Last Admin: 06/28/19 21:07 Dose: 1 applic Mirtazapine (Remeron) 15 mg PO QPM AIRAM Last Admin: 06/28/19 21:06 Dose: 15 mg Multi-Ingredient Ointment (Zinc Oxide) 1 applic TOP PRN PRN PRN Reason: Skin Care Last Admin: 06/28/19 21:07 Dose: 1 applic Ondansetron HCl (Zofran Inj) 4 mg IVP Q6HR PRN PRN Reason: Nausea / Vomiting Oxycodone HCl (Roxicodone) 10 mg PO Q4HR PRN PRN Reason: PAIN Last Admin: 06/29/19 14:38 Dose: 10 mg Pantoprazole Sodium (Protonix) 40 mg IVP QDAC AIRAM Last Admin: 06/29/19 06:24 Dose: 40 mg Sodium Chloride (Normal Saline Flush 0.9%) 10 ml IVP 0100,0900,1700 [facility] Last Admin: 06/29/19 08:22 Dose: 10 ml Sodium Chloride (Normal Saline Flush 0.9%) 10 ml IVP PRN PRN PRN Reason: NEEDED PER PROVIDER ORDERS Last Admin: 06/29/19 14:39 Dose: 10 ml Sodium Chloride (Normal Saline Flush 0.9%) 20 ml IVP PRN PRN PRN Reason: After Blood Draw Last Admin: 06/29/19 06:24 Dose: 20 ml Insulin Glargine,Hum.rec.anlog [Lantus] 30 - 40 unit SQ QDBREAKFAST 02/13/16 Docusate Sodium 200 mg PO BID 06/27/18 Insulin Aspart [NovoLOG] 0 units SUBQ TID PRN MDD sliding scale 06/27/18 clonazePAM [Clonazepam] 0.5 mg PO TID PRN 06/27/18 Ondansetron [Zuplenz] 8 mg PO Q8HR PRN 11/02/18 Polyethylene Glycol 3350 [Miralax] 17 mg PO DAILY PRN 01/03/19 Prochlorperazine Maleate [Compazine] 10 mg PO Q6HR PRN 01/03/19 Potassium Chloride 20 meq PO BID 03/19/19 Insulin Glargine [Lantus Solostar] 20 units SQ QPM 03/21/19 Loperamide [Imodium] 2 mg PO PRN PRN MDD 8/tabs 04/25/19 Oxycodone HCl 10 mg PO Q3HR PRN MDD 8/24 hours 04/25/19 fentaNYL [Fentanyl 75mcg patch] 75 mcg TOP Q72H 04/25/19 Objective - Vital Signs/Intake & Output Reviewed Vital Signs: Yes Vital Signs: Vital Signs x48h Temp Pulse Resp BP Pulse Ox 06/29/19 09:54 131 H 120/65 06/29/19 07:25 36.6 C 132 H 16 97/59 L 100 Intake & Output: Intake & Output 06/26/19 06/27/19 06/28/19 06/29/19 23:59 23:59 23:59 23:59 Intake Total 2049 2279 755 640 Output Total 2211 2199 2024 2199 Balance -162 80 -1270 -1560 - Objective General Appearance: positive: No acute distress, Alert Eyes Bilateral: positive: Normal inspection ENT: positive: ENT inspection nml Neck: positive: Nml inspection Respiratory: positive: No respiratory distress, Other (Diminished breath sounds in right base.). negative: Wheezes, Rales Cardiovascular: positive: Regular rate & rhythm, No murmur, Tachycardia. negative: Systolic murmur, Diastolic murmur Abdomen: positive: Non-tender, Other (Ostomy in place as well as aspira catheter.). negative: No distention Extremities: positive: Full ROM, Pedal edema (+1 pitting edema in lower extremites.) Neurologic/Psychiatric: positive: Oriented x3 - Lab Results Fish Bones: 06/28/19 04:15 06/28/19 04:15 Other Labs: Lab Results x24hrs 06/29/19 06/29/19 06/25/19 Range/Units 11:13 07:27 13:45 POC Whole Bld Glucose 278 H 228 H (70 - 100) mg/dL Ref Lab Test Result REPORT ABX Reporting Has patient been on IV antibiotics over the past 48 hours?: No Sepsis Event Note (H) - Evaluation Current Stage of Sepsis: Resolved Possible source of Sepsis: positive: Pulmonary - Sepsis Criteria Sepsis Criteria: Recorded Heart Rate greater than 90 bpm, Recorded Respiratory Rate greater than 20, Respiratory: Increasing oxygen requirements, WBC count greater than 12,000 or less than 4000, SBP drop more than 40mHg, MAP less than 65 mmHg, SBP less than 90 mmHg, Metabolic: lactate > 2 mmol/L, Hepatic: Bilirubin greater than 2mg/dl Assessment/Plan - Problem List (1) Bacteremia due to Streptococcus pneumoniae Impression: Repeat blood cultures have been negative. Continue Levaquin orally for 4 more days to complete 14 days of treatment. (2) Pneumonia Impression: This was present on admission secondary to Streptococcus pneumonia located in the right middle/lower lobe. She will continue Levaquin for her Streptococcus pneumonia bacteremia. Qualifiers: Pneumonia type: due to unspecified organism Laterality: right Lung location: middle lobe of lung Qualified Code(s): J18.9 - Pneumonia, unspecified organism (3) Tachycardia Impression: She remains tachycardic. Palliative care knows her quite well they state this is her baseline. Work-up for other etiologies of her tachycardia have been unremarkable. She has declined a beta-lyle in the past. Will ask her if she would be agreeable to trying a beta-lyle once again. (4) Physical deconditioning Impression: Remains deconditioned but has been improving each day. She continues to work with physical therapy on a daily basis. She is [facility]. (5) Chronic pain due to neoplasm Impression: Pain is well controlled on fentanyl patch and oxycodone as needed. (6) Thrombocytopenia Impression: This has been improving. Was initially decreased secondary to sepsis. No longer trending CBC as she is clinically stable. (7) Elevated INR Impression: Was elevated at 1.9. She was given vitamin K with improvement to 1.5. This is believed to be secondary to liver metastasis or nutritional deficiency given her poor oral intake. (8) Colon cancer metastasized to liver Impression: We will continue outpatient follow-up with oncology to discuss possible treatment again. (9) Malignant ascites Impression: Continue to drain her fluid 1.5 L a day. (10) DM type 1 (diabetes mellitus, type 1) Impression: Blood glucose has been slowly increasing. We will increase her Lantus dose as her appetite improves. (11) Severe protein-calorie malnutrition Impression: Continue to encourage her to increase her oral intake. We will continue with Remeron as an appetite stimulator. (12) Severe sepsis Impression: This was secondary to Streptococcus pneumonia bacteremia. This has resolved.
[2019-06-29] MEDS: levoFLOXacin 250 MG TABLET PO SCH (16:07)
[2019-06-29] MEDS ORDERED: INSULIN GLARGINE 300 UNIT/3 ML PEN SUBQ SCH (21:00)
[2019-06-29] MEDS: MIRTAZAPINE 15 MG TABLET PO SCH (21:02)
[2019-06-30] MEDS: oxyCODONE 5 MG TABLET PO PRN ×4 (00:14→18:18)
[2019-06-30] MEDS: SODIUM CHLORIDE FLUSH 0.9% 10 ML SYRINGE IVP SCH ×3 (00:15→16:46)
[2019-06-30] MEDS: SODIUM CHLORIDE FLUSH 0.9% 10 ML SYRINGE IVP PRN ×2 (06:21→14:35)
[2019-06-30] MEDS: PANTOPRAZOLE 40 MG VIAL IVP SCH (06:21)
[2019-06-30] MEDS: INSULIN ASPART 300 UNIT/3 ML PEN SUBQ SCH ×4 (08:25→20:49)
[2019-06-30] MEDS: PANTOPRAZOLE 40 MG TABLET PO SCH (08:27)
[2019-06-30] MEDS: CHLORHEXIDINE GLUCONATE 15 ML UDC PO SCH ×2 (08:27→20:46)
--- NOTE | 2019-06-30 12:48 | PROVIDER PROGRESS NOTE ---
Subjective - Prog Note Date Prog Note Date: 06/30/19 - Subjective Subjective: She is disappointed that she has not been able to void without a Ocampo catheter. She reports no dyspnea or chest pain. States her pain is well controlled overall. She is agreeable to a beta-lyle for her tachycardia. Current Medications - Current Medications Current Medications: Active Medications Chlorhexidine Gluconate (Peridex) 15 ml PO BID AIRAM Last Admin: 06/30/19 08:27 Dose: 15 ml Fentanyl (Duragesic) 1 patch TOP Q72H AIRAM Last Admin: 06/28/19 11:58 Dose: 1 patch Fentanyl (Duragesic) 1 patch TOP Q72H AIRAM Last Admin: 06/28/19 11:57 Dose: 1 patch Guaifenesin/Codeine Phosphate (Robitussin Ac) 5 ml PO Q6HR PRN PRN Reason: Cough Last Admin: 06/21/19 03:50 Dose: 5 ml Heparin Sodium (Beef Lung) () 30 - 50 unit IVP PRN PRN PRN Reason: Central Line Protocol (<24 hr) Last Admin: 06/30/19 08:27 Dose: 50 unit Insulin Aspart (Novolog) 3 - 11 unit SUBQ 0800,1200,1700,2100 AIRAM; Protocol Last Admin: 06/30/19 12:20 Dose: 9 unit Insulin Glargine (Lantus Solostar) 18 unit SUBQ QPM AIRAM Last Admin: 06/29/19 21:01 Dose: 18 unit Levofloxacin (Levaquin) 750 mg PO DAILY@1600 AIRAM Last Admin: 06/29/19 16:07 Dose: 750 mg Mineral Oil (Cavilon) 1 applic TOP PRN PRN PRN Reason: Skin Care Last Admin: 06/28/19 21:07 Dose: 1 applic Mirtazapine (Remeron) 15 mg PO QPM AIRAM Last Admin: 06/29/19 21:02 Dose: 15 mg Multi-Ingredient Ointment (Zinc Oxide) 1 applic TOP PRN PRN PRN Reason: Skin Care Last Admin: 06/28/19 21:07 Dose: 1 applic Ondansetron HCl (Zofran Inj) 4 mg IVP Q6HR PRN PRN Reason: Nausea / Vomiting Oxycodone HCl (Roxicodone) 10 mg PO Q4HR PRN PRN Reason: PAIN Last Admin: 06/30/19 10:30 Dose: 10 mg Pantoprazole Sodium (Protonix) 40 mg PO QDAC AIRAM Last Admin: 06/30/19 08:27 Dose: 40 mg Sodium Chloride (Normal Saline Flush 0.9%) 10 ml IVP 0100,0900,1700 [facility] Last Admin: 06/30/19 08:28 Dose: 10 ml Sodium Chloride (Normal Saline Flush 0.9%) 10 ml IVP PRN PRN PRN Reason: NEEDED PER PROVIDER ORDERS Last Admin: 06/29/19 14:39 Dose: 10 ml Sodium Chloride (Normal Saline Flush 0.9%) 20 ml IVP PRN PRN PRN Reason: After Blood Draw Last Admin: 06/30/19 06:21 Dose: 20 ml Insulin Glargine,Hum.rec.anlog [Lantus] 30 - 40 unit SQ QDBREAKFAST 02/13/16 Docusate Sodium 200 mg PO BID 06/27/18 Insulin Aspart [NovoLOG] 0 units SUBQ TID PRN MDD sliding scale 06/27/18 clonazePAM [Clonazepam] 0.5 mg PO TID PRN 06/27/18 Ondansetron [Zuplenz] 8 mg PO Q8HR PRN 11/02/18 Polyethylene Glycol 3350 [Miralax] 17 mg PO DAILY PRN 01/03/19 Prochlorperazine Maleate [Compazine] 10 mg PO Q6HR PRN 01/03/19 Potassium Chloride 20 meq PO BID 03/19/19 Insulin Glargine [Lantus Solostar] 20 units SQ QPM 03/21/19 Loperamide [Imodium] 2 mg PO PRN PRN MDD 8/tabs 04/25/19 Oxycodone HCl 10 mg PO Q3HR PRN MDD 8/24 hours 04/25/19 fentaNYL [Fentanyl 75mcg patch] 75 mcg TOP Q72H 04/25/19 Objective - Vital Signs/Intake & Output Reviewed Vital Signs: Yes Vital Signs: Vital Signs x48h Temp Pulse Resp BP Pulse Ox 06/30/19 08:00 36.4 C L 126 H 17 100/60 99 Intake & Output: Intake & Output 06/27/19 06/28/19 06/29/19 06/30/19 23:59 23:59 23:59 23:59 Intake Total 2280 755 880 150 Output Total 2199 2024 2249 2199 Balance 80 -1270 -1370 -2049 - Objective General Appearance: positive: No acute distress, Alert Eyes Bilateral: positive: Normal inspection ENT: positive: ENT inspection nml Neck: positive: Nml inspection Respiratory: positive: No respiratory distress, Other (Slightly diminished in right base.). negative: Wheezes, Rales, Rhonchi Cardiovascular: positive: No murmur, Tachycardia. negative: Bradycardia, Systolic murmur, Diastolic murmur Abdomen: positive: Non-tender Skin: positive: Warm, Dry Extremities: positive: Pedal edema (+1 pitting edema in bilateral lower extremity) Neurologic/Psychiatric: positive: Oriented x3. negative: Disoriented to person, Disoriented to place, Disoriented to time - Lab Results Fish Bones: 06/28/19 04:15 06/28/19 04:15 Other Labs: Lab Results x24hrs 06/30/19 06/30/19 06/29/19 Range/Units 12:20 08:09 20:51 POC Whole Bld Glucose 323 H 296 H 268 H (70 - 100) mg/dL 06/29/19 Range/Units 16:44 POC Whole Bld Glucose 251 H (70 - 100) mg/dL ABX Reporting Has patient been on IV antibiotics over the past 48 hours?: No Sepsis Event Note (H) - Evaluation Current Stage of Sepsis: Resolved Possible source of Sepsis: positive: Pulmonary - Sepsis Criteria Sepsis Criteria: Recorded Heart Rate greater than 90 bpm, Recorded Respiratory Rate greater than 20, Respiratory: Increasing oxygen requirements, WBC count greater than 12,000 or less than 4000, SBP drop more than 40mHg, MAP less than 65 mmHg, SBP less than 90 mmHg, Metabolic: lactate > 2 mmol/L, Hepatic: Bilirubin greater than 2mg/dl Assessment/Plan - Problem List (1) Bacteremia due to Streptococcus pneumoniae Impression: Continue Levaquin orally for 3 more days. (2) Pneumonia Impression: This was present on admission secondary to Streptococcus pneumonia located in the right middle/lower lobe. She will continue Levaquin for her Streptococcus pneumonia bacteremia. Qualifiers: Pneumonia type: due to unspecified organism Laterality: right Lung location: middle lobe of lung Qualified Code(s): J18.9 - Pneumonia, unspecified organism (3) Tachycardia Impression: Heart rate remains in the 110s to 120s.This is her baseline per palliative care who know her quite well.She is agreeable to beta-lyle and will start her on low-dose metoprolol as long as her blood pressure tolerates. (4) Physical deconditioning Impression: She is deconditioned after prolonged hospitalization. Continues to work with physical therapy on a daily basis. Pending placement to custodial facility. (5) Chronic pain due to neoplasm Impression: Continue fentanyl patch and oxycodone as needed. (6) Thrombocytopenia Impression: No longer checking her CBC but platelets have been increasing.This was initially low due to sepsis. (7) Elevated INR Impression: Last INR was 1.5 which decreased from 1.9 after vitamin K. Likely due to liver metastasis or nutritional deficiency. (8) Colon cancer metastasized to liver Impression: Patient follow-up with oncology to discuss possible treatment in the future. (9) Malignant ascites Impression: Continue to drain 1.5 L daily from the Aspira drain. (10) DM type 1 (diabetes mellitus, type 1) Impression: Blood glucose has been significantly elevated over the past 24 hours. It is now persistently above 200s. We will increase her Lantus again. Blood glucose is likely elevated as her appetite has increased. (11) Urinary retention Impression: He failed a voiding trial. Was straight cathed twice for [address] a Ocampo catheter and have her follow-up with urology on an outpatient basis. Risk factors for urinary tension including chronic opiate use and being mainly bedridden. (12) Severe protein-calorie malnutrition Impression: Continue to encourage her to increase her oral intake. We will continue with Remeron as an appetite stimulator. (13) Severe sepsis Impression: This has resolved. It was secondary to Streptococcus pneumonia bacteremia.
[2019-06-30] MEDS ORDERED: MORPHINE 2 MG/ML CARPUJECT IVP ONE (15:00)
[2019-06-30] MEDS: levoFLOXacin 250 MG TABLET PO SCH (16:43)
[2019-06-30] MEDS: ZINC OXIDE 20% OINT 30 GM TUBE TOP PRN (16:46)
[2019-06-30] MEDS: MIRTAZAPINE 15 MG TABLET PO SCH (20:41)
[2019-06-30] MEDS: METOPROLOL TARTRATE 25 MG TABLET PO SCH (20:51)
[2019-06-30] MEDS ORDERED: METOPROLOL TARTRATE 25 MG TABLET PO SCH (21:00)
[2019-06-30] MEDS ORDERED: INSULIN GLARGINE 300 UNIT/3 ML PEN SUBQ SCH (21:00)
[2019-07-01] MEDS: oxyCODONE 5 MG TABLET PO PRN ×3 (00:52→19:51)
[2019-07-01] MEDS: SODIUM CHLORIDE FLUSH 0.9% 10 ML SYRINGE IVP SCH ×3 (00:57→17:58)
[2019-07-01] MEDS: PANTOPRAZOLE 40 MG TABLET PO SCH (06:08)
[2019-07-01] MEDS ORDERED: DEXTROSE 10% 250 ML IV STA ×3 (08:09→22:52)
[2019-07-01] MEDS: INSULIN ASPART 300 UNIT/3 ML PEN SUBQ SCH ×4 (08:13→21:09)
[2019-07-01] MEDS: METOPROLOL TARTRATE 25 MG TABLET PO SCH (08:31)
[2019-07-01] MEDS: SODIUM CHLORIDE FLUSH 0.9% 10 ML SYRINGE IVP PRN ×2 (08:59→14:45)
[2019-07-01] MEDS: CHLORHEXIDINE GLUCONATE 15 ML UDC PO SCH ×2 (10:35→21:11)
[2019-07-01] MEDS: fentaNYL 50 MCG PATCH TOP SCH (10:36)
[2019-07-01] MEDS: fentaNYL 25 MCG PATCH TOP SCH (10:36)
[2019-07-01] MEDS ORDERED: LACTATED RINGERS 500 ML IV ONE ×4 (12:53→17:00)
[2019-07-01] MEDS: ONDANSETRON 4 MG/2 ML VIAL IVP PRN (13:13)
[2019-07-01] MEDS ORDERED: DEXTROSE GEL 37.5 GM TUBE ONE (13:56)
--- NOTE | 2019-07-01 17:26 | PROVIDER PROGRESS NOTE ---
Subjective - Prog Note Date Prog Note Date: 07/01/19 - Subjective Subjective: She reports not having a good day today. Her blood pressure was low this morning in the 70 systolic. She denied feeling dizzy or lightheaded. Her blood glucose was also low in the 50s. She states she is not having good day because she is unable to reach her son. He states her pain has been controlled. Current Medications - Current Medications Current Medications: Active Medications Chlorhexidine Gluconate (Peridex) 15 ml PO BID [facility] Last Admin: 07/01/19 10:35 Dose: 15 ml Fentanyl (Duragesic) 1 patch TOP Q72H AIRAM Last Admin: 07/01/19 10:36 Dose: 1 patch Fentanyl (Duragesic) 1 patch TOP Q72H AIRAM Last Admin: 07/01/19 10:36 Dose: 1 patch Guaifenesin/Codeine Phosphate (Robitussin Ac) 5 ml PO Q6HR PRN PRN Reason: Cough Last Admin: 06/21/19 03:50 Dose: 5 ml Heparin Sodium (Beef Lung) () 30 - 50 unit IVP PRN PRN PRN Reason: Central Line Protocol (<24 hr) Last Admin: 07/01/19 14:45 Dose: 50 unit Lactated Ringer's (Lr) 500 mls @ 999 mls/hr IV ONCE ONE Stop: 07/01/19 17:30 Last Admin: 07/01/19 16:20 Dose: 999 mls/hr Insulin Aspart (Novolog) 3 - 11 unit SUBQ 0800,1200,1700,2100 AIRAM; Protocol Last Admin: 07/01/19 13:00 Dose: Not Given Insulin Glargine (Lantus Solostar) 20 unit SUBQ QPM AIRAM Levofloxacin (Levaquin) 750 mg PO DAILY@1600 AIRAM Stop: 07/03/19 18:00 Last Admin: 06/30/19 16:43 Dose: 750 mg Mineral Oil (Cavilon) 1 applic TOP PRN PRN PRN Reason: Skin Care Last Admin: 06/28/19 21:07 Dose: 1 applic Mirtazapine (Remeron) 15 mg PO QPM [facility] Last Admin: 06/30/19 20:41 Dose: 15 mg Multi-Ingredient Ointment (Zinc Oxide) 1 applic TOP PRN PRN PRN Reason: Skin Care Last Admin: 06/30/19 16:46 Dose: 1 applic Ondansetron HCl (Zofran Inj) 4 mg IVP Q6HR PRN PRN Reason: Nausea / Vomiting Last Admin: 07/01/19 13:13 Dose: 4 mg Oxycodone HCl (Roxicodone) 10 mg PO Q4HR PRN PRN Reason: PAIN Last Admin: 07/01/19 06:08 Dose: 10 mg Pantoprazole Sodium (Protonix) 40 mg PO QDAC AIRAM Last Admin: 07/01/19 06:08 Dose: 40 mg Sodium Chloride (Normal Saline Flush 0.9%) 10 ml IVP 0100,0900,1700 [facility] Last Admin: 07/01/19 08:26 Dose: 10 ml Sodium Chloride (Normal Saline Flush 0.9%) 10 ml IVP PRN PRN PRN Reason: NEEDED PER PROVIDER ORDERS Last Admin: 07/01/19 14:45 Dose: 10 ml Sodium Chloride (Normal Saline Flush 0.9%) 20 ml IVP PRN PRN PRN Reason: After Blood Draw Last Admin: 06/30/19 06:21 Dose: 20 ml Insulin Glargine,Hum.rec.anlog [Lantus] 30 - 40 unit SQ QDBREAKFAST 02/13/16 Docusate Sodium 200 mg PO BID 06/27/18 Insulin Aspart [NovoLOG] 0 units SUBQ TID PRN MDD sliding scale 06/27/18 clonazePAM [Clonazepam] 0.5 mg PO TID PRN 06/27/18 Ondansetron [Zuplenz] 8 mg PO Q8HR PRN 11/02/18 Polyethylene Glycol 3350 [Miralax] 17 mg PO DAILY PRN 01/03/19 Prochlorperazine Maleate [Compazine] 10 mg PO Q6HR PRN 01/03/19 Potassium Chloride 20 meq PO BID 03/19/19 Insulin Glargine [Lantus Solostar] 20 units SQ QPM 03/21/19 Loperamide [Imodium] 2 mg PO PRN PRN MDD 8/tabs 04/25/19 Oxycodone HCl 10 mg PO Q3HR PRN MDD 8/24 hours 04/25/19 fentaNYL [Fentanyl 75mcg patch] 75 mcg TOP Q72H 04/25/19 Objective - Vital Signs/Intake & Output Reviewed Vital Signs: Yes Vital Signs: Vital Signs x48h Temp Pulse Resp BP Pulse Ox 07/01/19 16:52 36.4 C L 51 L 16 78/46 L 100 07/01/19 15:48 36.6 C 101 H 12 71/42 L 93 07/01/19 13:54 108 H 95/50 L 07/01/19 12:47 36.3 C L 85 12 67/40 L 96 Intake & Output: Intake & Output 06/28/19 06/29/19 06/30/19 07/01/19 23:59 23:59 23:59 23:59 Intake Total 549 654 8125 1340 Output Total 20240 2400 500 Balance -1270 -1370 -1360 840 - Objective General Appearance: positive: No acute distress, Alert Eyes Bilateral: positive: Normal inspection ENT: positive: ENT inspection nml Neck: positive: Nml inspection Respiratory: positive: No respiratory distress. negative: Wheezes, Rales, Rhonc hi Cardiovascular: positive: No murmur, Tachycardia. negative: Systolic murmur, Diastolic murmur Abdomen: positive: Non-tender, Other (Her abdomen remains distended. Nontender. Ostomy in place as well as Aspira drain.). negative: No distention, Tenderness Skin: positive: Warm, Dry, Pallor Extremities: positive: Pedal edema (+1 pitting edema in bilateral lower extremities) Neurologic/Psychiatric: positive: Oriented x3, Weakness. negative: Disoriented to person, Disoriented to place, Disoriented to time - Lab Results Fish Bones: 06/28/19 04:15 06/28/19 04:15 Other Labs: Lab Results x24hrs 07/01/19 07/01/19 07/01/19 Range/Units 16:16 14:34 13:51 POC Whole Bld Glucose 82 80 42 L* (70 - 100) mg/dL 07/01/19 07/01/19 07/01/19 Range/Units 12:44 11:45 09:12 POC Whole Bld Glucose 51 L* 64 L 100 (70 - 100) mg/dL 07/01/19 07/01/19 06/30/19 Range/Units 08:05 07:18 20:39 POC Whole Bld Glucose 44 L* 50 L* 245 H (70 - 100) mg/dL ABX Reporting Has patient been on IV antibiotics over the past 48 hours?: No Sepsis Event Note (H) - Evaluation Current Stage of Sepsis: Resolved Possible source of Sepsis: positive: Pulmonary - Sepsis Criteria Sepsis Criteria: Recorded Heart Rate greater than 90 bpm, Recorded Respiratory Rate greater than 20, Respiratory: Increasing oxygen requirements, WBC count greater than 12,000 or less than 4000, SBP drop more than 40mHg, MAP less than 65 mmHg, SBP less than 90 mmHg, Metabolic: lactate > 2 mmol/L, Hepatic: Bilirubin greater than 2mg/dl Assessment/Plan - Problem List (1) Hypotension Impression: He is hypotensive this morning after receiving metoprolol. Her blood pressure has been stable in the low 100s over the past few days. She does not appear septic and does not have any new complaints. She also denies dizziness and lightheadedness. Will give her a liter bolus and check labs. We will start her on maintenance fluid. If she remains hypotensive despite IV fluids, will repeat blood cultures and check for signs of infection including urinalysis and repeat chest x-ray. (2) DM type 1 (diabetes mellitus, type 1) Impression: She was hypoglycemic today in the 40s and this is likely due to her increase in Lantus yesterday. We will decrease her Lantus down to 20 units at night. Continue to encourage oral intake. (3) Bacteremia due to Streptococcus pneumoniae Impression: We will continue Levaquin orally for 2 more days. (4) Pneumonia Impression: This was present on admission secondary to Streptococcus pneumonia located in the right middle/lower lobe. She will continue Levaquin for her Streptococcus pneumonia bacteremia. Qualifiers: Pneumonia type: due to unspecified organism Laterality: right Lung location: middle lobe of lung Qualified Code(s): J18.9 - Pneumonia, unspecified organism (5) Tachycardia Impression: She remains tachycardic but as previously documented, palliative states this is her baseline. She became hypotensive with low-dose metoprolol so we will discontinue this at the moment. (6) Physical deconditioning Impression: Remains deconditioned after prolonged hospitalization. Continue to work with physical therapy. Pending placement to skilled nurse facility. (7) Chronic pain due to neoplasm Impression: Continue her fentanyl patch and oxycodone as needed. (8) Thrombocytopenia Impression: This was secondary to sepsis and has been improving. We will check a CBC given her hypotension. (9) Elevated INR Impression: Her INR was elevated and this is likely secondary to liver metastasis versus nutritional deficiency. Decreased to 1.5 with vitamin K. (10) Colon cancer metastasized to liver Impression: Continue outpatient follow-up with oncology. (11) Malignant ascites Impression: We will continue to drain 1.5 L a day. (12) Urinary retention Impression: Failed a voiding trial. We will keep a Ocampo catheter in place. (13) Severe protein-calorie malnutrition Impression: Continue to encourage oral intake. (14) Severe sepsis Impression: This has resolved. Given her hypotension, will consider sepsis work-up if she remains hypotensive despite IV fluids
[2019-07-01] MEDS ORDERED: LACTATED RINGERS 1,000 ML IV ONE (17:31)
[2019-07-01 17:43] LABS: BASOPHILS % (AUTO) 0.4 %; EOSINOPHILS % (AUTO) 0.4 %; HGB - HEMOGLOBIN 9.2 g/dL (12.0-16.0); LYMPHOCYTES % (AUTO) 14.6 %; MEAN CORPUSCULAR HEMOGLOBIN 30.4 pg (27.0-31.0); MEAN CORPUSCULAR HGB CONC 30.9 g/dL (32.0-36.0); MEAN CORPUSCULAR VOLUME 98.3 fL (81.0-99.0); MEAN PLATELET VOLUME 10.7 fL (7.9-10.8); MONOCYTES % (AUTO) 20.7 %; NEUTROPHILS % (AUTO) 61.7 %; PLT - PLATELET COUNT 102 10^3/uL (130-450); RED BLOOD COUNT 3.03 10^6/uL (4.20-5.40); RED CELL DISTRIBUTION WIDTH 19.1 % (12.0-15.0); WHITE BLOOD COUNT 11.3 x10^3/uL (4.8-10.8)
[2019-07-01] MEDS: levoFLOXacin 250 MG TABLET PO SCH (17:50)
[2019-07-01 17:51] LABS: CALCIUM 7.1 mg/dL (8.5-10.3); CREATININE 1.7 mg/dL (0.4-1.0); MAGNESIUM 1.4 mg/dL (1.7-2.8)
[2019-07-01 17:52] LABS: ABNORMAL LYMPHS % (MANUAL) 0 %
[2019-07-01] MEDS ORDERED: MAGNESIUM SULFATE 2 GRAM 2 GM/50 ML BAG IV ONE (17:57)
[2019-07-01] MEDS ORDERED: LACTATED RINGERS 1,000 ML IV SCH (18:00)
[2019-07-01 18:24] LABS: BAND NEUTROPHILS % (MANUAL) 12 %; LYMPHOCYTES # (MANUAL) 1.2 10^3/uL (1.5-3.5); LYMPHOCYTES % (MANUAL) 11 %; MONOCYTES # (MANUAL) 0.6 10^3/uL (0.0-1.0)
[2019-07-01 18:25] LABS: DIFFERENTIAL COMMENT MANUAL DIFFERENTIAL; PLATELET ESTIMATE, MANUAL DECREASED (<130,000) (NORMAL); PLATELET MORPHOLOGY NORMAL APPEARANCE (NORMAL)
[2019-07-01] MEDS ORDERED: PIPERACILLIN/TAZOBACTAM 3.375 GM in SODIUM CHLORIDE 0.9% MINIBAG 100 ML IV SCH ×2 (19:00→23:00)
[2019-07-01] MEDS ORDERED: PIPERACILLIN/TAZOBACTAM 3.375 GM in SODIUM CHLORIDE 0.9% MINIBAG 100 ML IV ONE (19:00)
[2019-07-01 19:44] LABS: GLUCOSE, URINE (UA) NEGATIVE (NEGATIVE); KETONES,URINE (UA) NEGATIVE (NEGATIVE); LEUKOCYTE ESTERASE, URINE SMALL (NEGATIVE); NITRITE,URINE NEGATIVE (NEGATIVE); OCCULT BLOOD,URINE LARGE (NEGATIVE); PROTEIN,URINE 30 mg/dL (NEGATIVE); UROBILINOGEN,URINE 0.2 (NORMAL) E.U./dL (NORMAL)
[2019-07-01 19:46] LABS: BILIRUBIN,URINE MODERATE (NEGATIVE); CLARITY,URINE CLOUDY (CLEAR); ICTOTEST,URINE POSITIVE
[2019-07-01 19:57] LABS: AMORPHOUS SEDIMENT,UR Moderate /LPF; BACTERIA,URINE Moderate /HPF (None Seen); RBC,URINE TNTC /HPF (0-5); SQUAMOUS EPITHELIAL CELL,UR FEW Squamous (<= Few)
[2019-07-01 19:58] LABS: YEAST,URINE PRESENT
[2019-07-01] MEDS: MIN OIL/DIMETHICON/COCONUT OIL 92 GM TUBE TOP PRN (19:59)
[2019-07-01] MEDS ORDERED: VANCOMYCIN INJ 2 GM in SODIUM CHLORIDE 0.9% 500 ML IV ONE (20:00)
[2019-07-01] MEDS: SODIUM CHLORIDE 0.9% 500 ML IV PRN (20:07)
--- NOTE | 2019-07-01 20:26 | XRAY Report ---
Reason: Leukocyotsis. Cough. Prior pneumonia. Procedure Date: 07/01/2019 Accession Number: [id number] / [id number] Procedure: XR - Chest 1 View X-Ray CPT Code: 48399 Final Report FULL RESULT: EXAM: CHEST RADIOGRAPHY EXAM DATE: 07/01/2019 07:20 PM. CLINICAL HISTORY: Leukocyotsis. Cough. Prior pneumonia. COMPARISON: CHEST 1 VIEW 06/26/2019 5:43 AM. TECHNIQUE: 1 view. FINDINGS: Lungs/Pleura: Hazy opacity in left hemithorax and right upper lobe, suggestive of atelectasis. Mediastinum: Right-sided Port-A-Cath noted with its tip in the right atrium, unchanged since prior. Within exam limitations, the cardiomediastinal contour is normal. Other: None. IMPRESSION: Hazy opacity in left hemithorax and right upper lobe, suggestive of atelectasis, unchanged since prior. Developing multifocal pneumonia cannot be excluded. [facility]
[2019-07-01] MEDS ORDERED: INSULIN GLARGINE 300 UNIT/3 ML PEN SUBQ SCH (21:00)
[2019-07-01] MEDS ORDERED: DEXTROSE 10% 250 ML IV ONE (21:10)
[2019-07-01] MEDS: INSULIN GLARGINE 300 UNIT/3 ML PEN SUBQ SCH (21:10)
[2019-07-01] MEDS: MIRTAZAPINE 15 MG TABLET PO SCH (21:11)
[2019-07-01] MEDS ORDERED: DEXTROSE 5%-0.9% NACL 1,000 ML IV ONE (21:16)
[2019-07-01] MEDS: DEXTROSE 5%-0.9% NACL 1,000 ML IV SCH (21:17)
[2019-07-01] MEDS ORDERED: DEXTROSE 50% ABBOJECT 25 GM/50 ML SYRINGE IVP ONE (21:20)
[2019-07-01] MEDS: HEPARIN 5,000 UNIT/ML VIAL SUBQ SCH (21:33)
[2019-07-02] MEDS ORDERED: metroNIDAZOLE 500 MG/100 ML 500 MG/100 ML BAG IV ONE (00:01)
[2019-07-02] MEDS: CEFEPIME 2 GM in SODIUM CHLORIDE 0.9% MINIBAG 100 ML IV SCH ×4 (00:15→21:26)
[2019-07-02] MEDS: SODIUM CHLORIDE FLUSH 0.9% 10 ML SYRINGE IVP SCH ×3 (00:53→16:58)
[2019-07-02] MEDS: oxyCODONE 5 MG TABLET PO PRN ×3 (01:59→14:37)
[2019-07-02 04:42] LABS: BASOPHILS % (AUTO) 0.4 %; EOSINOPHILS % (AUTO) 0.4 %; HGB - HEMOGLOBIN 10.7 g/dL (12.0-16.0); LYMPHOCYTES % (AUTO) 11.2 %; MEAN CORPUSCULAR HEMOGLOBIN 30.2 pg (27.0-31.0); MEAN CORPUSCULAR HGB CONC 31.5 g/dL (32.0-36.0); MEAN PLATELET VOLUME 10.4 fL (7.9-10.8); MONOCYTES % (AUTO) 18.4 %; NEUTROPHILS % (AUTO) 67.4 %; PLT - PLATELET COUNT 131 10^3/uL (130-450); RED BLOOD COUNT 3.54 10^6/uL (4.20-5.40); RED CELL DISTRIBUTION WIDTH 19.1 % (12.0-15.0); WHITE BLOOD COUNT 16.1 x10^3/uL (4.8-10.8)
[2019-07-02 04:46] LABS: ABNORMAL LYMPHS % (MANUAL) 0 %; BAND NEUTROPHILS % (MANUAL) 0 %
[2019-07-02 04:53] LABS: CALCIUM 7.2 mg/dL (8.5-10.3); CREATININE 1.5 mg/dL (0.4-1.0); MAGNESIUM 1.7 mg/dL (1.7-2.8); PHOSPHORUS 4.8 mg/dL (2.5-4.6)
[2019-07-02 05:00] LABS: LYMPHOCYTES # (MANUAL) 1.1 10^3/uL (1.5-3.5); LYMPHOCYTES % (MANUAL) 7 %; MONOCYTES # (MANUAL) 2.3 10^3/uL (0.0-1.0)
[2019-07-02 05:01] LABS: RBC MORPHOLOGY (MULTIPLE) 2+ ANISOCYTOSIS (NORMAL)
[2019-07-02 05:02] LABS: DIFFERENTIAL COMMENT MANUAL DIFFERENTIAL; PLATELET ESTIMATE, MANUAL DECREASED (<130,000) (NORMAL); PLATELET MORPHOLOGY NORMAL APPEARANCE (NORMAL)
[2019-07-02] MEDS ORDERED: MAGNESIUM SULFATE 2 GRAM 2 GM/50 ML BAG IV ONE ×2 (05:16→12:00)
[2019-07-02] MEDS: PANTOPRAZOLE 40 MG TABLET PO SCH (06:20)
[2019-07-02] MEDS: HEPARIN 5,000 UNIT/ML VIAL SUBQ SCH ×2 (08:04→21:04)
[2019-07-02] MEDS ORDERED: ALBUMIN 25% 12.5 GM/50 ML VIAL IV STA (08:05)
[2019-07-02] MEDS: INSULIN ASPART 300 UNIT/3 ML PEN SUBQ SCH ×4 (08:19→21:02)
[2019-07-02] MEDS: FLUCONAZOLE 200 MG/100 ML 50 ML IV SCH (08:51)
[2019-07-02] MEDS: DEXTROSE 5%-0.9% NACL 1,000 ML IV SCH ×2 (08:57→14:09)
[2019-07-02] MEDS ORDERED: oxyCODONE 5 MG TABLET PO ONE (09:02)
[2019-07-02] MEDS ORDERED: LIDOCAINE OINTMENT 5% 35.44 GM TUBE TOP ONE (09:30)
[2019-07-02] MEDS: CHLORHEXIDINE GLUCONATE 15 ML UDC PO SCH ×2 (10:17→21:04)
--- NOTE | 2019-07-02 10:24 | PROVIDER PROGRESS NOTE ---
Assessment/Plan - Problem List (1) Severe sepsis Assessment/Plan: She was transferred (back) to the ICU lasr evening, in septic shock. BP was 69/50, HR tachycardic, Lactic acid 3.8, WBC rising, and urinalysis shows hematuria and bacteria plus yeast. The shock is being treated with iv fluids and pressor agent (Levophed). The underlying infection is being teated with broadened antibiotic coverage: Zosyn was stopped, Vanco continues and new iv Cefepime, iv Flagyl and iv Diflucan have been started. Await new blood and urine culture results. Will add peritoneal fluid order to be cultured, again Follow Lactic Acid level. PT will be on hold now. (2) UTI (urinary tract infection) Assessment/Plan: As above: broadened iv antibiotic coverage and await NEW urine and blood culture results. (3) Urinary retention Assessment/Plan: She failed a voiding trial and a Ocampo was re-ordered to be inserted on 06/30/19. Will remove the Ocampo since this may be the cause of the current infection, and assess of she indeed has urinary retention and needs it replaced. (4) Bacteremia due to Streptococcus pneumoniae Assessment/Plan: She was on her last 2 days of oral Levaquin yesterday (5) Pneumonia Assessment/Plan: Pneumonia was her admission Dx. She was on her last 2 days of oral Levaquin yesterday (6) DM type 1 (diabetes mellitus, type 1) Assessment/Plan: susan dropped and she was put on fluids containing D%. Her LAntus Insulin was decreased from 24 U to 20 U in the evening. Continue cc diet and accuchecks and ss Insulin coverage. (7) Colon cancer metastasized to liver Assessment/Plan: Will obtain LFTs, which have not been followed for over a week. She is followed by Palliative Care, and today Cathy Osei NP recommended a CEA level be drawn to help with prognosis. Will obtain CEA level in a.m. (8) Malignant ascites Assessment/Plan: She has been getting 1.5L of ascites removed daily. This may be adding ti the hypotension. Her abdomen is more distended despite the paracentesis, poor prognosis. (9) Severe protein-calorie malnutrition Assessment/Plan: She is on a reg, diabetic diet, improved intake since when first admissted and was obtunded. (10) Anemia Assessment/Plan: Stable Hgb (11) Thrombocytopenia Assessment/Plan: This was felt to be from sepsis and was improving. Follow CBC daily. (12) History of anxiety Assessment/Plan: Her meds continue for this (13) Chronic pain due to neoplasm Assessment/Plan: Her meds continue for this. (14) Physical deconditioning Assessment/Plan: She was out opf the ICU for several days, the max she did was stand for 10 sec x2 with PT. Now PT will be on hold, til she is not hypotensive - Current Meds Current Meds: Current Medications Generic Name Dose Route Start Last Admin Trade Name Freq PRN Reason Stop Dose Admin Chlorhexidine Gluconate 15 ml 06/21/19 23:00 07/02/19 10:17 Peridex PO 15 ml BID AIRAM Administration Fentanyl 1 patch 06/19/19 11:00 07/01/19 10:36 Duragesic TOP 1 patch Q72H AIRAM Administration Fentanyl 1 patch 06/19/19 11:00 07/01/19 10:36 Duragesic TOP 1 patch Q72H AIRAM Administration Guaifenesin/Codeine Phosphate 5 ml 06/20/19 19:54 06/21/19 03:50 Robitussin Ac PO 5 ml Q6HR PRN Administration Cough Heparin Sodium (Beef Lung) 30 - 50 unit 06/27/19 13:36 07/01/19 14:45 IVP 50 unit PRN PRN Administration Central Line Protocol (<24 hr) Heparin Sodium (Porcine) 5,000 unit 07/01/19 21:00 07/02/19 08:04 SUBQ 5,000 unit BID AIRAM Administration Norepinephrine Bitartrate 8 mg 250 mls @ 15 mls/hr 07/01/19 19:00 07/02/19 08:23 / Dextrose IV 2 mcg/min .[id number] AIRAM 3.75 mls/hr Titration Protocol 8 MCG/MIN Cefepime HCl 2 gm/ Sodium 100 mls @ 200 mls/hr 07/02/19 00:01 07/02/19 10:06 Chloride IV 200 mls/hr BID AIRAM Administration Dextrose/Sodium Chloride 1,000 mls @ 83.333 mls/hr 07/01/19 22:00 07/02/19 08:57 D5ns IV 83.333 mls/hr .Q12H AIRAM Administration Sodium Chloride 500 mls @ 0 mls/hr 07/01/19 21:36 07/01/19 20:07 Normal Saline 0.9% IV 20 mls/hr Q24H PRN Administration TKO RATE TKO Fluconazole 50 mls @ 100 mls/hr 07/02/19 09:00 07/02/19 09:27 Diflucan 200 Mg/100 Ml IV Infused DAILY AIRAM Infusion Insulin Aspart 3 - 11 unit 06/27/19 17:00 07/02/19 08:19 Novolog SUBQ Not Given 0800,1200,1700,2100 [facility] Protocol Insulin Glargine 20 unit 07/01/19 21:00 07/01/19 21:10 Lantus Solostar SUBQ Not Given QPM [facility] Mineral Oil 1 applic 06/19/19 19:23 07/01/19 19:59 Cavilon TOP 1 applic PRN PRN Administration Skin Care Mirtazapine 15 mg 06/27/19 21:00 07/01/19 21:11 Remeron PO 15 mg QPM AIRAM Administration Multi-Ingredient Ointment 1 applic 06/24/19 17:27 06/30/19 16:46 Zinc Oxide TOP 1 applic PRN PRN Administration Skin Care Ondansetron HCl 4 mg 06/18/19 19:26 07/01/19 13:13 Zofran Inj IVP 4 mg Q6HR PRN Administration Nausea / Vomiting Oxycodone HCl 10 mg 06/27/19 19:31 07/02/19 06:20 Roxicodone PO 10 mg Q4HR PRN Administration PAIN Pantoprazole Sodium 40 mg 06/30/19 08:00 07/02/19 06:20 Protonix PO 40 mg QDAC AIRAM Administration Sodium Chloride 10 ml 06/19/19 01:00 07/02/19 10:17 Normal Saline Flush 0.9% IVP 10 ml 0100,0900,1700 AIRAM Administration Sodium Chloride 10 ml 06/18/19 19:26 07/01/19 14:45 Normal Saline Flush 0.9% IVP 10 ml PRN PRN Administration NEEDED PER PROVIDER ORDERS Sodium Chloride 20 ml 06/20/19 20:42 06/30/19 06:21 Normal Saline Flush 0.9% IVP 20 ml PRN PRN Administration After Blood Draw - Lab Result Fish Bone Diagrams: 07/02/19 04:35 07/02/19 04:35 - Additional Planning My Orders: My Active Orders 07/02/19 09:00 Fluconazole 200 mg/100 ml [Diflucan 200 mg/100 ml] 50 ml IV DAILY Subjective - Subjective Patient Reports: Abdominal Pain Nursing Reports: Nausea Objective Vital Signs: Vital Signs - 24 hr 07/01/19 07/01/19 07/01/19 12:47 13:54 15:48 Temperature 36.3 C L 36.6 C Heart Rate Heart Rate [ 85 108 H 101 H Brachial] Heart Rate [ Monitoring electrodes] Respiratory 12 12 Rate Blood Pressure Blood Pressure [Left Brachial artery] Blood Pressure 67/40 L 95/50 L 71/42 L [Right Brachial artery] O2 Saturation 96 93 07/01/19 07/01/19 07/01/19 16:52 17:27 17:39 Temperature 36.4 C L 36.3 C L Heart Rate Heart Rate [ 51 L 97 Brachial] Heart Rate [ Monitoring electrodes] Respiratory 16 14 Rate Blood Pressure Blood Pressure 85/46 L [Left Brachial artery] Blood Pressure 78/46 L 71/41 L [Right Brachial artery] O2 Saturation 100 96 07/01/19 07/01/19 07/01/19 18:09 18:43 19:08 Temperature 36.4 C L Heart Rate Heart Rate [ 98 94 Brachial] Heart Rate [ 96 Monitoring electrodes] Respiratory 16 8 L Rate Blood Pressure Blood Pressure 73/47 L 75/38 L [Left Brachial artery] Blood Pressure 79/51 L [Right Brachial artery] O2 Saturation 96 95 07/01/19 07/01/19 07/01/19 19:33 22:00 22:01 Temperature 36.5 C Heart Rate 101 H Heart Rate [ Brachial] Heart Rate [ 90 100 Monitoring electrodes] Respiratory 11 L 15 14 Rate Blood Pressure 110/74 Blood Pressure [Left Brachial artery] Blood Pressure 95/59 L 110/74 [Right Brachial artery] O2 Saturation 100 100 07/01/19 07/01/19 07/01/19 22:05 22:10 22:15 Temperature Heart Rate 103 H 101 H 101 H Heart Rate [ Brachial] Heart Rate [ Monitoring electrodes] Respiratory 23 18 14 Rate Blood Pressure Blood Pressure [Left Brachial artery] Blood Pressure [Right Brachial artery] O2 Saturation 07/01/19 07/01/19 07/01/19 22:20 22:25 22:30 Temperature Heart Rate 102 H 102 H 105 H Heart Rate [ Brachial] Heart Rate [ Monitoring electrodes] Respiratory 16 16 16 Rate Blood Pressure Blood Pressure [Left Brachial artery] Blood Pressure [Right Brachial artery] O2 Saturation 07/01/19 07/01/19 07/01/19 22:35 22:40 22:45 Temperature Heart Rate 105 H 105 H 104 H Heart Rate [ Brachial] Heart Rate [ Monitoring electrodes] Respiratory 13 20 19 Rate Blood Pressure Blood Pressure [Left Brachial artery] Blood Pressure [Right Brachial artery] O2 Saturation 07/01/19 07/01/19 07/01/19 22:50 22:55 23:00 Temperature Heart Rate 105 H 107 H 107 H Heart Rate [ Brachial] Heart Rate [ Monitoring electrodes] Respiratory 18 16 15 Rate Blood Pressure Blood Pressure [Left Brachial artery] Blood Pressure [Right Brachial artery] O2 Saturation 07/01/19 07/01/19 07/01/19 23:01 23:02 23:05 Temperature Heart Rate 106 H 108 H Heart Rate [ Brachial] Heart Rate [ 107 H Monitoring electrodes] Respiratory 22 15 23 Rate Blood Pressure 100/72 Blood Pressure [Left Brachial artery] Blood Pressure 100/72 [Right Brachial artery] O2 Saturation 97 07/01/19 07/01/19 07/01/19 23:10 23:15 23:20 Temperature Heart Rate 106 H 108 H 108 H Heart Rate [ Brachial] Heart Rate [ Monitoring electrodes] Respiratory 15 12 16 Rate Blood Pressure Blood Pressure [Left Brachial artery] Blood Pressure [Right Brachial artery] O2 Saturation 07/01/19 07/01/19 07/01/19 23:25 23:30 23:35 Temperature Heart Rate 110 H 110 H 109 H Heart Rate [ Brachial] Heart Rate [ Monitoring electrodes] Respiratory 17 20 15 Rate Blood Pressure Blood Pressure [Left Brachial artery] Blood Pressure [Right Brachial artery] O2 Saturation 07/01/19 07/01/19 07/01/19 23:40 23:45 23:50 Temperature Heart Rate 110 H 110 H 112 H Heart Rate [ Brachial] Heart Rate [ Monitoring electrodes] Respiratory 20 15 19 Rate Blood Pressure Blood Pressure [Left Brachial artery] Blood Pressure [Right Brachial artery] O2 Saturation 07/01/19 07/02/19 07/02/19 23:55 00:00 00:01 Temperature 36.6 C Heart Rate 112 H 113 H 114 H Heart Rate [ Brachial] Heart Rate [ 116 H Monitoring electrodes] Respiratory 11 L 19 18 Rate Blood Pressure 103/81 H Blood Pressure [Left Brachial artery] Blood Pressure 103/81 H [Right Brachial artery] O2 Saturation 99 07/02/19 07/02/19 07/02/19 00:05 00:10 00:15 Temperature Heart Rate 113 H 114 H 114 H Heart Rate [ Brachial] Heart Rate [ Monitoring electrodes] Respiratory 12 16 17 Rate Blood Pressure Blood Pressure [Left Brachial artery] Blood Pressure [Right Brachial artery] O2 Saturation 07/02/19 07/02/19 07/02/19 00:20 00:25 00:30 Temperature Heart Rate 117 H 116 H 116 H Heart Rate [ Brachial] Heart Rate [ Monitoring electrodes] Respiratory 13 19 18 Rate Blood Pressure Blood Pressure [Left Brachial artery] Blood Pressure [Right Brachial artery] O2 Saturation 07/02/19 07/02/19 07/02/19 00:35 00:40 00:45 Temperature Heart Rate 115 H 115 H 115 H Heart Rate [ Brachial] Heart Rate [ Monitoring electrodes] Respiratory 18 15 20 Rate Blood Pressure Blood Pressure [Left Brachial artery] Blood Pressure [Right Brachial artery] O2 Saturation 07/02/19 07/02/19 07/02/19 00:50 00:55 01:00 Temperature Heart Rate 116 H 116 H 118 H Heart Rate [ Brachial] Heart Rate [ 120 H Monitoring electrodes] Respiratory 17 14 18 Rate Blood Pressure Blood Pressure [Left Brachial artery] Blood Pressure 113/81 H [Right Brachial artery] O2 Saturation 100 07/02/19 07/02/19 07/02/19 01:01 01:05 01:10 Temperature Heart Rate 121 H 120 H 121 H Heart Rate [ Brachial] Heart Rate [ Monitoring electrodes] Respiratory 12 10 L 9 L Rate Blood Pressure 113/81 H Blood Pressure [Left Brachial artery] Blood Pressure [Right Brachial artery] O2 Saturation 07/02/19 07/02/19 07/02/19 01:15 01:20 01:25 Temperature Heart Rate 124 H 122 H 121 H Heart Rate [ Brachial] Heart Rate [ Monitoring electrodes] Respiratory 14 17 25 H Rate Blood Pressure Blood Pressure [Left Brachial artery] Blood Pressure [Right Brachial artery] O2 Saturation 07/02/19 07/02/19 07/02/19 01:30 01:34 01:35 Temperature Heart Rate 123 H 123 H 122 H Heart Rate [ Brachial] Heart Rate [ Monitoring electrodes] Respiratory 25 H 13 16 Rate Blood Pressure 82/59 L Blood Pressure [Left Brachial artery] Blood Pressure [Right Brachial artery] O2 Saturation 07/02/19 07/02/19 07/02/19 01:36 01:40 01:45 Temperature Heart Rate 123 H 125 H 124 H Heart Rate [ Brachial] Heart Rate [ Monitoring electrodes] Respiratory 14 23 17 Rate Blood Pressure Blood Pressure [Left Brachial artery] Blood Pressure [Right Brachial artery] O2 Saturation 07/02/19 07/02/19 07/02/19 01:50 01:55 02:00 Temperature Heart Rate 123 H 127 H 128 H Heart Rate [ Brachial] Heart Rate [ 133 H Monitoring electrodes] Respiratory 21 21 19 Rate Blood Pressure Blood Pressure [Left Brachial artery] Blood Pressure 105/76 [Right Brachial artery] O2 Saturation 97 07/02/19 07/02/19 07/02/19 02:01 02:03 02:04 Temperature Heart Rate 131 H 128 H 123 H Heart Rate [ Brachial] Heart Rate [ Monitoring electrodes] Respiratory 23 14 14 Rate Blood Pressure 77/59 L 105/76 Blood Pressure [Left Brachial artery] Blood Pressure [Right Brachial artery] O2 Saturation 07/02/19 07/02/19 07/02/19 02:05 02:10 02:15 Temperature Heart Rate 122 H 119 H 120 H Heart Rate [ Brachial] Heart Rate [ Monitoring electrodes] Respiratory 13 11 L 17 Rate Blood Pressure Blood Pressure [Left Brachial artery] Blood Pressure [Right Brachial artery] O2 Saturation 07/02/19 07/02/19 07/02/19 02:20 02:25 02:30 Temperature Heart Rate 119 H 118 H 118 H Heart Rate [ Brachial] Heart Rate [ Monitoring electrodes] Respiratory 14 14 10 L Rate Blood Pressure Blood Pressure [Left Brachial artery] Blood Pressure [Right Brachial artery] O2 Saturation 07/02/19 07/02/19 07/02/19 02:35 02:40 02:45 Temperature Heart Rate 118 H 118 H 115 H Heart Rate [ Brachial] Heart Rate [ Monitoring electrodes] Respiratory 11 L 12 12 Rate Blood Pressure Blood Pressure [Left Brachial artery] Blood Pressure [Right Brachial artery] O2 Saturation 07/02/19 07/02/19 07/02/19 02:50 02:55 03:00 Temperature Heart Rate 115 H 115 H 116 H Heart Rate [ Brachial] Heart Rate [ 115 H Monitoring electrodes] Respiratory 10 L 11 L 12 Rate Blood Pressure Blood Pressure [Left Brachial artery] Blood Pressure 93/69 [Right Brachial artery] O2 Saturation 100 07/02/19 07/02/19 07/02/19 03:01 03:05 03:10 Temperature Heart Rate 114 H 116 H 115 H Heart Rate [ Brachial] Heart Rate [ Monitoring electrodes] Respiratory 9 L 11 L 11 L Rate Blood Pressure 93/69 Blood Pressure [Left Brachial artery] Blood Pressure [Right Brachial artery] O2 Saturation 07/02/19 07/02/19 07/02/19 03:15 03:20 03:25 Temperature Heart Rate 117 H 111 H 119 H Heart Rate [ Brachial] Heart Rate [ Monitoring electrodes] Respiratory 11 L 14 10 L Rate Blood Pressure Blood Pressure [Left Brachial artery] Blood Pressure [Right Brachial artery] O2 Saturation 07/02/19 07/02/19 07/02/19 03:30 03:35 03:40 Temperature Heart Rate 118 H 117 H 117 H Heart Rate [ Brachial] Heart Rate [ Monitoring electrodes] Respiratory 10 L 11 L 11 L Rate Blood Pressure Blood Pressure [Left Brachial artery] Blood Pressure [Right Brachial artery] O2 Saturation 07/02/19 07/02/19 07/02/19 03:45 03:50 03:55 Temperature Heart Rate 117 H 115 H 115 H Heart Rate [ Brachial] Heart Rate [ Monitoring electrodes] Respiratory 11 L 10 L 11 L Rate Blood Pressure Blood Pressure [Left Brachial artery] Blood Pressure [Right Brachial artery] O2 Saturation 07/02/19 07/02/19 07/02/19 04:00 04:01 04:05 Temperature 37.0 C Heart Rate 115 H 115 H 118 H Heart Rate [ Brachial] Heart Rate [ 119 H Monitoring electrodes] Respiratory 11 L 11 L 11 L Rate Blood Pressure 86/62 L Blood Pressure [Left Brachial artery] Blood Pressure 86/62 L [Right Brachial artery] O2 Saturation 100 07/02/19 07/02/19 07/02/19 04:10 04:15 04:20 Temperature Heart Rate 118 H 116 H 116 H Heart Rate [ Brachial] Heart Rate [ Monitoring electrodes] Respiratory 11 L 11 L 10 L Rate Blood Pressure Blood Pressure [Left Brachial artery] Blood Pressure [Right Brachial artery] O2 Saturation 07/02/19 07/02/19 07/02/19 04:25 04:30 04:35 Temperature Heart Rate 117 H 122 H 120 H Heart Rate [ Brachial] Heart Rate [ Monitoring electrodes] Respiratory 10 L 9 L 8 L Rate Blood Pressure Blood Pressure [Left Brachial artery] Blood Pressure [Right Brachial artery] O2 Saturation 07/02/19 07/02/19 07/02/19 04:40 04:45 04:50 Temperature Heart Rate 119 H 119 H 119 H Heart Rate [ Brachial] Heart Rate [ Monitoring electrodes] Respiratory 8 L 9 L 10 L Rate Blood Pressure Blood Pressure [Left Brachial artery] Blood Pressure [Right Brachial artery] O2 Saturation 07/02/19 07/02/19 07/02/19 04:55 05:00 05:01 Temperature Heart Rate 118 H 118 H 120 H Heart Rate [ Brachial] Heart Rate [ 120 H Monitoring electrodes] Respiratory 22 10 L 11 L Rate Blood Pressure 88/56 L Blood Pressure [Left Brachial artery] Blood Pressure 88/56 L [Right Brachial artery] O2 Saturation 98 07/02/19 07/02/19 07/02/19 05:05 06:00 07:00 Temperature Heart Rate 119 H Heart Rate [ Brachial] Heart Rate [ 122 H 116 H Monitoring electrodes] Respiratory 10 L 14 12 Rate Blood Pressure Blood Pressure [Left Brachial artery] Blood Pressure 99/64 84/57 L [Right Brachial artery] O2 Saturation 96 07/02/19 07/02/19 07/02/19 08:00 08:25 08:30 Temperature 97.7 C H Heart Rate Heart Rate [ Brachial] Heart Rate [ 116 H 120 H 116 H Monitoring electrodes] Respiratory 12 Rate Blood Pressure Blood Pressure [Left Brachial artery] Blood Pressure 101/63 82/54 L 84/56 L [Right Brachial artery] O2 Saturation 100 07/02/19 07/02/19 07/02/19 08:35 08:45 09:00 Temperature Heart Rate Heart Rate [ Brachial] Heart Rate [ 115 H 116 H 118 H Monitoring electrodes] Respiratory 11 L Rate Blood Pressure Blood Pressure [Left Brachial artery] Blood Pressure 81/54 L 77/57 L 89/54 L [Right Brachial artery] O2 Saturation 99 07/02/19 07/02/19 09:15 09:30 Temperature Heart Rate Heart Rate [ Brachial] Heart Rate [ 117 H 117 H Monitoring electrodes] Respiratory Rate Blood Pressure Blood Pressure [Left Brachial artery] Blood Pressure 89/54 L 84/55 L [Right Brachial artery] O2 Saturation Oxygen O2 Source Room air I&O (Last 24 Hrs): Intake and Output Totals x24h 06/30/19 07/01/19 07/02/19 23:59 23:59 23:59 Intake Total 1040 3921 1520.468 Output Total 2400 581 61 Balance -1360 3340 1459.468 General: Alert, Oriented x3 Neck: Supple, No JVD Neuro: Alert, Non Focal Cardiovascular: Regular rate, No murmurs Respiratory: No respiratory distress, Breath sounds nml Abdomen: Other (Distended, soft, colostomy and tube in place) Extremities: Other (1+ ankle edema) - Results Results: Laboratory Results WBC 16.1 x10^3/uL (4.8-10.8) H 07/02/19 04:35 RBC 3.54 10^6/uL (4.20-5.40) L 07/02/19 04:35 Hgb 10.7 g/dL (12.0-16.0) L 07/02/19 04:35 Hct 34.0 % (37.0-47.0) L 07/02/19 04:35 MCV 96.0 fL (81.0-99.0) 07/02/19 04:35 MCH 30.2 pg (27.0-31.0) 07/02/19 04:35 MCHC 31.5 g/dL (32.0-36.0) L 07/02/19 04:35 RDW 19.1 % (12.0-15.0) H 07/02/19 04:35 Plt Count 131 10^3/uL (130-450) 07/02/19 04:35 MPV 10.4 fL (7.9-10.8) 07/02/19 04:35 Neut # (Auto) Not Reportable 07/02/19 04:35 Lymph # (Auto) Not Reportable 07/02/19 04:35 [place] # (Auto) Not Reportable 07/02/19 04:35 Eos # (Auto) Not Reportable 07/02/19 04:35 Baso # (Auto) Not Reportable 07/02/19 04:35 Absolute Nucleated RBC Not Reportable 07/02/19 04:35 Total Counted 100 07/02/19 04:35 Band Neuts % (Manual) 0 % (0-10) 07/02/19 04:35 Abnorm Lymph % (Manual) 0 % 07/02/19 04:35 Metamyelocytes % 2 % (-0) H 06/21/19 06:08 Myelocytes % 2 % (-0) H 06/21/19 06:08 Nucleated RBC % Not Reportable 07/02/19 04:35 Neutrophils # (Manual) 12.7 10^3/uL (1.5-6.6) H 07/02/19 04:35 Lymphocytes # (Manual) 1.1 10^3/uL (1.5-3.5) L 07/02/19 04:35 Monocytes # (Manual) 2.3 10^3/uL (0.0-1.0) H 07/02/19 04:35 Eosinophils # (Manual) 0.0 10^3/uL (0-0.7) 07/02/19 04:35 Basophils # (Manual) 0.0 10^3/uL (0-0.1) 07/02/19 04:35 Differential Comment MANUAL DIFFERENTIAL 07/02/19 04:35 Manual Slide Review Indicated 07/01/19 17:30 WBC Morphology NORMAL APPEARANCE (NORMAL) 07/02/19 04:35 Platelet Estimate DECREASED (<130,000) (NORMAL) 07/02/19 04:35 Platelet Morphology NORMAL APPEARANCE (NORMAL) 07/02/19 04:35 RBC Morph Micro Appear 1+ ANISOCYTOSIS (NORMAL) 1+ DERRICK CELLS (NORMAL) 1+ MICROCYTOSIS (NORMAL) 1+ HYPOCHROMASIA (NORMAL) 1+ OVALOCYTES (NORMAL) 1+ SCHISTOCYTES (NORMAL) 06/20/19 16:58 RBC Morph Micro Appear 1+ ANISOCYTOSIS (NORMAL) 1+ DERRICK CELLS (NORMAL) 1+ MICROCYTOSIS (NORMAL) 1+ HYPOCHROMASIA (NORMAL) 1+ OVALOCYTES (NORMAL) 1+ SCHISTOCYTES (NORMAL) 06/20/19 16:58 RBC Morph Micro Appear 1+ ANISOCYTOSIS (NORMAL) 1+ DERRICK CELLS (NORMAL) 1+ MICROCYTOSIS (NORMAL) 1+ HYPOCHROMASIA (NORMAL) 1+ OVALOCYTES (NORMAL) 1+ SCHISTOCYTES (NORMAL) 06/20/19 16:58 RBC Morph Micro Appear 1+ ANISOCYTOSIS (NORMAL) 1+ DERRICK CELLS (NORMAL) 1+ MICROCYTOSIS (NORMAL) 1+ HYPOCHROMASIA (NORMAL) 1+ OVALOCYTES (NORMAL) 1+ SCHISTOCYTES (NORMAL) 06/20/19 16:58 RBC Morph Micro Appear 1+ ANISOCYTOSIS (NORMAL) 1+ DERRICK CELLS (NORMAL) 1+ MICROCYTOSIS (NORMAL) 1+ HYPOCHROMASIA (NORMAL) 1+ OVALOCYTES (NORMAL) 1+ SCHISTOCYTES (NORMAL) 06/20/19 16:58 RBC Morph Micro Appear 1+ ANISOCYTOSIS (NORMAL) 1+ HYPOCHROMASIA (NORMAL) 1+ OVALOCYTES (NORMAL) 06/21/19 06:08 RBC Morph Micro Appear 1+ ANISOCYTOSIS (NORMAL) 1+ HYPOCHROMASIA (NORMAL) 1+ OVALOCYTES (NORMAL) 06/21/19 06:08 RBC Morph Micro Appear 1+ ANISOCYTOSIS (NORMAL) 1+ HYPOCHROMASIA (NORMAL) 1+ OVALOCYTES (NORMAL) 06/21/19 06:08 RBC Morph Micro Appear 1+ HYPOCHROMASIA (NORMAL) 06/22/19 04:42 RBC Morph Micro Appear 1+ ANISOCYTOSIS (NORMAL) 1+ HYPOCHROMASIA (NORMAL) 06/23/19 05:02 RBC Morph Micro Appear 1+ ANISOCYTOSIS (NORMAL) 1+ HYPOCHROMASIA (NORMAL) 06/23/19 05:02 RBC Morph Micro Appear 1+ POLYCHROMASIA (NORMAL) 1+ HYPOCHROMASIA (NORMAL) 1+ ANISOCYTOSIS (NORMAL) 06/24/19 07:17 RBC Morph Micro Appear 1+ POLYCHROMASIA (NORMAL) 1+ HYPOCHROMASIA (NORMAL) 1+ ANISOCYTOSIS (NORMAL) 06/24/19 07:17 RBC Morph Micro Appear 1+ POLYCHROMASIA (NORMAL) 1+ HYPOCHROMASIA (NORMAL) 1+ ANISOCYTOSIS (NORMAL) 06/24/19 07:17 RBC Morph Micro Appear 2+ ANISOCYTOSIS (NORMAL) 2+ POIKILOCYTOSIS (NORMAL) 07/01/19 17:30 RBC Morph Micro Appear 2+ ANISOCYTOSIS (NORMAL) 2+ POIKILOCYTOSIS (NORMAL) 07/01/19 17:30 RBC Morph Micro Appear 2+ ANISOCYTOSIS (NORMAL) 07/02/19 04:35 PT 16.7 secs (9.9-12.6) H 06/27/19 04:40 INR 1.5 (0.8-1.2) H 06/27/19 04:40 Fibrinogen 575 mg/dL (220-496) H 06/19/19 18:47 Bld Gas Analysis Time 52606/19/19 05:15 Sample Site RIGHT RADIAL 06/19/19 05:15 ABG pH 7.41 (7.35-7.45) 06/19/19 05:15 ABG pCO2 31 mmHg (34-45) L 06/19/19 05:15 ABG pO2 72 mmHg (80-100) L 06/19/19 05:15 ABG HCO3 18.9 mmol/L (22.0-26.0) L 06/19/19 05:15 ABG Total CO2 19.9 MMOL/L (21.0-29.0) L 06/19/19 05:15 ABG O2 Saturation 94 % (94-98) 06/19/19 05:15 ABG Base Excess -5.0 mmol/L (-2.0-3.0) L 06/19/19 05:15 Ramón Test POSITIVE 06/19/19 05:15 VBG pH 7.374 (7.31-7.41) 06/26/19 04:20 VBG pCO2 25.5 mmHg (41-51) L 06/18/19 18:46 VBG pO2 35.5 mmHg (25-47) 06/18/19 18:46 VBG HCO3 11.7 mmol/L (23-28) L 06/18/19 18:46 VBG Total CO2 12.5 mmol/L (24-29) L 06/18/19 18:46 VBG O2 Saturation 56.2 % (60-80) L 06/18/19 18:46 VBG Base Excess -13.5 mmol/L (-2 - +2) L 06/18/19 18:46 Ionized Calcium 1.09 mmol/L (1.15-1.33) L 06/26/19 04:20 O2 Delivery Device OXYMASK 06/19/19 05:15 O2 Liters/Min 4.00 LPM 06/19/19 05:15 FiO2 0.36 06/19/19 05:15 Sodium 130 mmol/L (135-145) L 07/02/19 04:35 Potassium 4.4 mmol/L (3.5-5.0) 07/02/19 04:35 Chloride 109 mmol/L (101-111) 07/02/19 04:35 Carbon Dioxide 13 mmol/L (21-32) L 07/02/19 04:35 Anion Gap 8.0 (6-13) 07/02/19 04:35 BUN 34 mg/dL (6-20) H 07/02/19 04:35 Creatinine 1.5 mg/dL (0.4-1.0) H 07/02/19 04:35 Estimated GFR (MDRD) 39 (>89) L 07/02/19 04:35 Glucose 93 mg/dL (70-100) 07/02/19 04:35 POC Whole Bld Glucose 100 mg/dL (70 - 100) 07/02/19 07:51 Glycated Hemoglobin 8.1 % (4.6-6.2) H 06/18/19 18:09 Estim Average Glucose 186 (70-100) H 06/18/19 18:09 Lactic Acid 2.0 mmol/L (0.5-2.2) 07/02/19 09:00 Calcium 7.2 mg/dL (8.5-10.3) L 07/02/19 04:35 Phosphorus 4.8 mg/dL (2.5-4.6) H 07/02/19 04:35 Magnesium 1.7 mg/dL (1.7-2.8) 07/02/19 04:35 Total Bilirubin 2.4 mg/dL (0.2-1.0) H 06/20/19 04:40 Direct Bilirubin 1.3 mg/dL (0.1-0.5) H 06/20/19 04:40 AST 59 IU/L (10-42) H 06/20/19 04:40 ALT 16 IU/L (10-60) 06/20/19 04:40 Alkaline Phosphatase 803 IU/L (42-121) H 06/20/19 04:40 Total Creatine Kinase 105 IU/L (22-269) 06/18/19 18:09 Total Protein 4.5 g/dL (6.7-8.2) L 06/20/19 04:40 Albumin < 1.0 g/dL (3.2-5.5) L 07/02/19 04:35 Globulin 3.4 g/dL (2.1-4.2) 06/20/19 04:40 Albumin/Globulin Ratio 0.3 (1.0-2.2) L 06/18/19 18:09 Lipase 15 U/L (22-51) L 06/18/19 18:09 TSH 2.50 uIU/mL (0.34-5.60) 06/18/19 18:09 Urine Color DARK YELLOW 07/01/19 19:25 Urine Clarity CLOUDY (CLEAR) 07/01/19 19:25 Urine pH 5.0 PH (5.0-7.5) 07/01/19 19:25 Ur Specific [place] >=1.030 (1.002-1.030) H 07/01/19 19:25 Urine Protein 30 mg/dL (NEGATIVE) H 07/01/19 19:25 Urine Glucose (UA) NEGATIVE mg/dL (NEGATIVE) 07/01/19 19:25 Urine Ketones NEGATIVE mg/dL (NEGATIVE) 07/01/19 19:25 Urine Occult Blood LARGE (NEGATIVE) H 07/01/19 19:25 Urine Nitrite NEGATIVE (NEGATIVE) 07/01/19 19:25 Urine Bilirubin MODERATE (NEGATIVE) H 07/01/19 19:25 Urine Ictotest Cancelled 06/18/19 18:16 Urine Urobilinogen 0.2 (NORMAL) E.U./dL (NORMAL) 07/01/19 19:25 Ur Leukocyte Esterase SMALL (NEGATIVE) H 07/01/19 19:25 Urine RBC TNTC /HPF (0-5) H 07/01/19 19:25 Urine WBC 11-25 /HPF (0-5) H 07/01/19 19:25 Ur Squamous Epith Cells FEW Squamous (<= Few) 07/01/19 19:25 Amorphous Sediment Moderate /LPF 07/01/19 19:25 Urine Bacteria Moderate /HPF (None Seen) H 07/01/19 19:25 Urine Yeast PRESENT 07/01/19 19:25 Ur Microscopic Review NOT INDICATED 06/18/19 19:30 Urine Culture Comments INDICATED 07/01/19 19:25 Fluid Source PERITONEAL 06/25/19 13:45 Fluid Color YELLOW 06/25/19 13:45 Fluid Clarity CLEAR 06/25/19 13:45 Fluid WBC 526 /mm^3 06/25/19 13:45 Fluid RBC < 3000 /mm^3 06/25/19 13:45 Fluid Neutrophils % 89 % 06/25/19 13:45 Fluid Lymphocytes % 4 06/25/19 13:45 Fluid Monocytes % 7 % 06/25/19 13:45 Fld Mesothelial Cell % 1 % 06/19/19 18:45 Nasal Screen MRSA (PCR) NEGATIVE (NEGATIVE) 06/18/19 20:10 Last Dose Date UNKNOWN 06/21/19 06:08 Last Dose Time UNKNOWN 06/21/19 06:08 Vancomycin Trough 38.8 ug/mL (10.0-20.0) H* 06/20/19 08:22 Random Vancomycin 16.9 ug/mL 06/21/19 06:08 Salicylates < 6.0 mg/dL 06/18/19 18:09 Urine Opiates Screen NEGATIVE (NEGATIVE) 06/18/19 18:16 Ur Oxycodone Screen POSITIVE (NEGATIVE) H 06/18/19 18:16 Urine Methadone Screen NEGATIVE (NEGATIVE) 06/18/19 18:16 Ur Propoxyphene Screen NEGATIVE (NEGATIVE) 06/18/19 18:16 Acetaminophen < 10 ug/mL (10-30) L 06/18/19 18:09 Ur Barbiturates Screen NEGATIVE (NEGATIVE) 06/18/19 18:16 Ur Tricyclics Screen NEGATIVE (NEGATIVE) 06/18/19 18:16 Ur Phencyclidine Scrn NEGATIVE (NEGATIVE) 06/18/19 18:16 Ur Amphetamine Screen NEGATIVE (NEGATIVE) 06/18/19 18:16 U Methamphetamines Scrn NEGATIVE (NEGATIVE) 06/18/19 18:16 U Benzodiazepines Scrn NEGATIVE (NEGATIVE) 06/18/19 18:16 Urine Cocaine Screen NEGATIVE (NEGATIVE) 06/18/19 18:16 U Cannabinoids Screen NEGATIVE (NEGATIVE) 06/18/19 18:16 Ethyl Alcohol < 5.0 mg/dL 06/18/19 18:09 Serum Ketones NEGATIVE (NEGATIVE) 06/19/19 18:36 Ref Lab Test Result REPORT 06/19/19 18:45 Ref Lab Test Result REPORT 06/25/19 13:45 Blood Type A NEGATIVE 06/24/19 08:05 Antibody Screen NEGATIVE 06/24/19 08:05 Crossmatch IS Only See Detail 06/24/19 08:05 Sepsis Event Note (H) - Evaluation Current Stage of Sepsis: Resolved Possible source of Sepsis: positive: Pulmonary - Sepsis Criteria Sepsis Criteria: Recorded Heart Rate greater than 90 bpm, Recorded Respiratory Rate greater than 20, Respiratory: Increasing oxygen requirements, WBC count greater than 12,000 or less than 4000, SBP drop more than 40mHg, MAP less than 65 mmHg, SBP less than 90 mmHg, Metabolic: lactate > 2 mmol/L, Hepatic: Bi lirubin greater than 2mg/dl
[2019-07-02 11:06] LABS: ALBUMIN < 1.0 g/dL (3.2-5.5); ALKALINE PHOSPHATASE 529 IU/L (42-121); ALT ALANINE AMINOTRANSFERASE < 10 IU/L (10-60); AST ASPARTATE AMINOTRANSFERASE 27 IU/L (10-42); BILIRUBIN,DIRECT 0.7 mg/dL (0.1-0.5); BILIRUBIN,TOTAL 1.5 mg/dL (0.2-1.0)
[2019-07-02] MEDS: ONDANSETRON 4 MG/2 ML VIAL IVP PRN (11:16)
--- NOTE | 2019-07-02 12:24 | CONSULTATION NOTE ---
Palliative Care Follow Up - Referral Referring Provider: April Sandoval MD Time of Visit: [id number] Referral setting: Hospitalized patient Referral Reason: Met Colon Ca with liver mets/Goals of Care - Information Sources Records reviewed: RN notes reviewed, Previous records reviewed History/Review of Systems obtained from: Caregiver Exam limitations: Clinical condition (patient appears to have difficult concentrating;) - History of Present Illness Update Brief HPI Update: This is a 34-year-old woman is been hospitalized since 5 initially with severe pneumonia, sepsis, and acutely on admit DKA. She had continued though slowly to improve, weighing benefits and burdens of moving on to hospice versus focusing on rehab and looking at the goal of being able to continue treatment. There is a CT of her abdomen and pelvis for which oncologist reviewed, felt like there was no significant change in her liver, but she does continue with extensive hepatic disease. At that point in time her CA had remained stable, unfortunately patient is continued to be quite weak, bedbound, cachectic, and has presented with muscle wasting. She also has had increasing ascites, lower extremity edema, and had only improved marginally to be able to sit and dangle edge of bed, and some bed mobility. Goal had been to transfer her to a SNF, with a rehab focus, with focus on patient's goals which were to return to home as well as continue with treatment. Patient unfortunately presented with increasing hallucinations, increasing symptoms of sepsis, and was transferred back to the ICU last night. She is conversant, though has only minimal understanding of the severity of her illness still. She does understand and is able to verbalize that she is being treated again for recurrent infection, but is complaining of increased pain, and feeling quite poorly.Concern for patient fragile status, poor nutritional reserves, and both tumor and symptom burden. Patient remains at high risk for continued decline. Social History - Living Situation Living arrangement: At home Living Situation: With spouse/s.o., With family Medications/Allergies - Medications Active Medication List: Active Medications Chlorhexidine Gluconate (Peridex) 15 ml PO BID [facility] Last Admin: 07/02/19 10:17 Dose: 15 ml Fentanyl (Duragesic) 1 patch TOP Q72H AIRAM Last Admin: 07/01/19 10:36 Dose: 1 patch Fentanyl (Duragesic) 1 patch TOP Q72H AIRAM Last Admin: 07/01/19 10:36 Dose: 1 patch Guaifenesin/Codeine Phosphate (Robitussin Ac) 5 ml PO Q6HR PRN PRN Reason: Cough Last Admin: 06/21/19 03:50 Dose: 5 ml Heparin Sodium (Beef Lung) () 30 - 50 unit IVP PRN PRN PRN Reason: Central Line Protocol (<24 hr) Last Admin: 07/01/19 14:45 Dose: 50 unit Heparin Sodium (Porcine) () 5,000 unit SUBQ BID [facility] Last Admin: 07/02/19 08:04 Dose: 5,000 unit Norepinephrine Bitartrate 8 mg (/ Dextrose) 250 mls @ 15 mls/hr IV .[id number] [facility]; Protocol Last Titration: 07/02/19 11:31 Dose: 6 mcg/min, 11.25 mls/hr Vancomycin HCl 1 gm/Vancomycin HCl 250 mg/ Sodium Chloride 250 mls @ 166.667 mls/hr IV Q24H AIRAM Cefepime HCl 2 gm/ Sodium (Chloride) 100 mls @ 200 mls/hr IV BID [facility] Last Infusion: 07/02/19 10:40 Dose: Infused Dextrose/Sodium Chloride (D5ns) 1,000 mls @ 83.333 mls/hr IV .Q12H [facility] Last Admin: 07/02/19 08:57 Dose: 83.333 mls/hr Sodium Chloride (Normal Saline 0.9%) 500 mls @ 0 mls/hr IV Q24H PRN PRN Reason: TKO RATE Last Admin: 07/01/19 20:07 Dose: 20 mls/hr Fluconazole (Diflucan 200 Mg/100 Ml) 50 mls @ 100 mls/hr IV DAILY [facility] Last Infusion: 07/02/19 09:27 Dose: Infused Insulin Aspart (Novolog) 3 - 11 unit SUBQ 0800,1200,1700,2100 [facility]; Protocol Last Admin: 07/02/19 08:19 Dose: Not Given Insulin Glargine (Lantus Solostar) 20 unit SUBQ QPM [facility] Last Admin: 07/01/19 21:10 Dose: Not Given Mineral Oil (Cavilon) 1 applic TOP PRN PRN PRN Reason: Skin Care Last Admin: 07/01/19 19:59 Dose: 1 applic Mirtazapine (Remeron) 15 mg PO QPM [facility] Last Admin: 07/01/19 21:11 Dose: 15 mg Multi-Ingredient Ointment (Zinc Oxide) 1 applic TOP PRN PRN PRN Reason: Skin Care Last Admin: 06/30/19 16:46 Dose: 1 applic Ondansetron HCl (Zofran Inj) 4 mg IVP Q6HR PRN PRN Reason: Nausea / Vomiting Last Admin: 07/02/19 11:16 Dose: 4 mg Oxycodone HCl (Roxicodone) 10 mg PO Q4HR PRN PRN Reason: PAIN Last Admin: 07/02/19 06:20 Dose: 10 mg Pantoprazole Sodium (Protonix) 40 mg PO QDAC AIRAM Last Admin: 07/02/19 06:20 Dose: 40 mg Sodium Chloride (Normal Saline Flush 0.9%) 10 ml IVP 0100,0900,1700 [facility] Last Admin: 07/02/19 10:17 Dose: 10 ml Sodium Chloride (Normal Saline Flush 0.9%) 10 ml IVP PRN PRN PRN Reason: NEEDED PER PROVIDER ORDERS Last Admin: 07/01/19 14:45 Dose: 10 ml Sodium Chloride (Normal Saline Flush 0.9%) 20 ml IVP PRN PRN PRN Reason: After Blood Draw Last Admin: 06/30/19 06:21 Dose: 20 ml Insulin Glargine,Hum.rec.anlog [Lantus] 30 - 40 unit SQ QDBREAKFAST 02/13/16 Docusate Sodium 200 mg PO BID 06/27/18 Insulin Aspart [NovoLOG] 0 units SUBQ TID PRN MDD sliding scale 06/27/18 clonazePAM [Clonazepam] 0.5 mg PO TID PRN 06/27/18 Ondansetron [Zuplenz] 8 mg PO Q8HR PRN 11/02/18 Polyethylene Glycol 3350 [Miralax] 17 mg PO DAILY PRN 01/03/19 Prochlorperazine Maleate [Compazine] 10 mg PO Q6HR PRN 01/03/19 Potassium Chloride 20 meq PO BID 03/19/19 Insulin Glargine [Lantus Solostar] 20 units SQ QPM 03/21/19 Loperamide [Imodium] 2 mg PO PRN PRN MDD 8/tabs 04/25/19 Oxycodone HCl 10 mg PO Q3HR PRN MDD 8/24 hours 04/25/19 fentaNYL [Fentanyl 75mcg patch] 75 mcg TOP Q72H 04/25/19 - Allergies Allergies/Adverse Reactions: Allergies Allergy/AdvReac Type Severity Reaction Status Date / Time No Known Drug Allergies Allergy Verified 06/18/19 16:43 Review of Systems - Constitutional Constitutional: reports: Fatigue, Weakness - Ears, Nose & Throat Ears, Nose & Throat: reports: Dry mouth - Cardiovascular Cardiovascular: reports: Edema, Decr. exercise tolerance - Respiratory Respiratory: denies: SOB at rest - Gastrointestinal Gastrointestinal: reports: Nausea (receiving Zofran at visit), Poor appetite (little intake in 24 hours) - Genitourinary Genitourinary: reports: Other (stanton catheter considered current source of infection) - Musculoskeletal Musculoskeletal: reports: Back pain, Muscle aches, Stiffness, Limited range of motion, Muscle weakness, Other (has been bedbound for 2 weeks through hospitalization; had been working with some improvement with PT to be able to dangle use lift) - Integumentary Integumentary: reports: Other (reported red are on abd? abcess; has hx of abcesses had not observed but patient with multiple paracentesis, could be old tract) - Neurological Neurological: reports: General weakness, Memory problems (reported halluc inations by nursing and ; patient not orientated with questioning but limited conversation) - Psychiatric Psychiatric: reports: Depression, Anxiety - Endocrine Endocrine: reports: Other (fluctuating BS has been hypoglycemic) - Hematologic/Lymphatic Hematologic/Lymphatic: reports: Recurrent infections (recurrent elevated WBC/sepsis attributed to urine at this time) - All Other Systems All Other Systems: reports: Other (limited ROS patient not wanting to engage) Physical Exam - Vital Signs Vital Signs: Vital Signs x48h Temp Pulse Pulse Resp BP BP Pulse Ox 07/02/19 11:30 118 H 82/48 L 07/02/19 11:15 115 H 85/58 L 07/02/19 11:00 114 H 87/52 L 07/02/19 10:55 115 H 82/57 L 07/02/19 10:50 117 H 88/51 L 07/02/19 10:45 116 H 78/48 L 07/02/19 10:30 117 H 79/54 L 07/02/19 10:00 118 H 11 L 87/55 L 100 07/02/19 09:30 117 H 84/55 L 07/02/19 09:15 117 H 89/54 L 07/02/19 09:00 118 H 11 L 89/54 L 99 07/02/19 08:45 116 H 77/57 L 07/02/19 08:35 115 H 81/54 L 07/02/19 08:30 116 H 84/56 L 07/02/19 08:25 120 H 82/54 L 07/02/19 08:00 97.7 C H 116 H 12 101/63 100 07/02/19 07:00 116 H 12 84/57 L 96 07/02/19 06:00 122 H 14 99/64 07/02/19 05:05 119 H 10 L 07/02/19 05:01 120 H 11 L 88/56 L 07/02/19 05:00 118 H 120 H 10 L 88/56 L 98 07/02/19 04:55 118 H 22 07/02/19 04:50 119 H 10 L 07/02/19 04:45 119 H 9 L 07/02/19 04:40 119 H 8 L 07/02/19 04:35 120 H 8 L 07/02/19 04:30 122 H 9 L 07/02/19 04:25 117 H 10 L 07/02/19 04:20 116 H 10 L - Physical Exam General Appearance: positive: Mild distress, Anxious ENT: positive: Dry mucous membranes Neck: positive: Trachea midline Cardiovascular: positive: Tachycardia, Other (hypotensive on drip) Respiratory: positive: No respiratory distress Abdomen: positive: Distended, Taut, Other (severely ascitic;) Skin: positive: Pallor, Dryness, Pressure wound (not observed;) Extremities: positive: Pedal edema (up to sacrum) Palliative Care - POLST POLST Status: DNR Pain: Pain worsening, Location (She reports increased severity in her right lower quadrant, this is been the site of her long underlying chronic pain as well. She does have increased ascites adding to her pressure and discomfort. She is tender to palpation over her abdomen. She also complains of discomfort of her tail bone) Tiredness/Fatigue: Severe (7-10) Drowsiness/Sedation: Moderate (4-6) Nausea: Moderate (4-6) Anorexia: Severe (7-10), Weight loss (demonstrated in muscle wasting and temporal wasting) Dyspnea: Mild (1-3) Depression: Moderate (4-6) Anxiety: Severe (7-10) Feelings of wellbeing/Perceived Quality of Life: Poor, Worsening - Palliative Care Discussion: Patient when approached, does verbalize understanding she is back in the ICU, that she has an infection. She reports "I do not want to be pressured", I do not want to answer any questions. Reassured was just here to check and see how she was doing, I suspect this is reflective of the conversation she had earlier with [facility]. They did talk to her a little bit about staying there, rehab, and she had told and that was too far from home. This is via the social workers report, but my understanding is they are able and willing to revisit when patient is more appropriate for transfer. Patient does admit to being scared, having difficulty figuring out what is going on, but did not want to engage in further conversation. I did follow-up with , he had been here when she transferred to ICU last night. We did review that she is continued to do poorly, she is on multiple antibiotics, and still being treated for sepsis and her low blood pressures. I discussed with him about the [facility], We did discuss that they were willing to reconsider again. He does not understand how she is going to be able to get better or if she chooses to go home how they are going to take care of her. We did review if she was bedbound, still needed the Stanton catheter, we could get her a hospital bed, and whether she chose or it was appropriate for hospice or home health, they would be able to provide bathing as well as oversight and instruction how to care for bedbound patient. He did share that he had talked to Samantha that his mother is here, his mother actually is a retired nurse. He essentially told her that and that she could come of the better plan, That this is how it was going to have to go particularly if she wanted to come home. Did have a conversation regarding patient's fragile status, patient at high risk for continued decline, and concern for her ability to recover to the point to meet her goals. Did share will be looking at [facility] and explained this would be something that would give us some indication of what is happening with her cancer, and we may need to consider a revisit the question of hospice again. Expressed concern regarding patient's low albumin, ongoing metabolic abnormalities, and poor reserves to be able to recover in a meaningful way for transitioning to rehab. Plan at this point is to follow course, hoping for the best that she improves from this infection, and can revisit rehab, also preparing for the worst in the context of at risk for end-of-life event, or continued decline with conversation revisiting of hospice. Results - Lab Results Lab results reviewed: Yes Fish Bones: 07/02/19 04:35 07/02/19 04:35 Lab and Imaging Results: Lab Results x24hrs 07/02/19 07/02/19 07/02/19 Range/Units 11:47 09:00 07:51 WBC (4.8-10.8) x10^3/uL RBC (4.20-5.40) 10^6/uL Hgb (12.0-16.0) g/dL Hct (37.0-47.0) % MCV (81.0-99.0) fL MCH (27.0-31.0) pg MCHC (32.0-36.0) g/dL RDW (12.0-15.0) % Plt Count (130-450) 10^3/uL MPV (7.9-10.8) fL Neut # (Auto) Lymph # (Auto) Scott # (Auto) Eos # (Auto) Baso # (Auto) Absolute Nucleated RBC Total Counted Band Neuts % (Manual) (0 - 10) % Abnorm Lymph % (Manual) % Nucleated RBC % Neutrophils # (Manual) (1.5-6.6) 10^3/uL Lymphocytes # (Manual) (1.5-3.5) 10^3/uL Monocytes # (Manual) (0.0-1.0) 10^3/uL Eosinophils # (Manual) (0-0.7) 10^3/uL Basophils # (Manual) (0-0.1) 10^3/uL Differential Comment Manual Slide Review WBC Morphology (NORMAL) Platelet Estimate (NORMAL) Platelet Morphology (NORMAL) RBC Morph Micro Appear (NORMAL) Sodium (135-145) mmol/L Potassium (3.5-5.0) mmol/L Chloride (101-111) mmol/L Carbon Dioxide (21-32) mmol/L Anion Gap (6-13) BUN (6-20) mg/dL Creatinine (0.4-1.0) mg/dL Estimated GFR (MDRD) (>89) Glucose (70-100) mg/dL POC Whole Bld Glucose 140 H 100 (70 - 100) mg/dL Lactic Acid 2.0 (0.5-2.2) mmol/L Calcium (8.5-10.3) mg/dL Phosphorus (2.5-4.6) mg/dL Magnesium (1.7-2.8) mg/dL Total Bilirubin (0.2-1.0) mg/dL Direct Bilirubin (0.1-0.5) mg/dL AST (10-42) IU/L ALT (10-60) IU/L Alkaline Phosphatase (42-121) IU/L Total Protein (6.7-8.2) g/dL Albumin (3.2-5.5) g/dL Globulin (2.1-4.2) g/dL Urine Color Urine Clarity (CLEAR) Urine pH (5.0-7.5) PH Ur Specific [place] (1.002-1.030) Urine Protein (NEGATIVE) mg/dL Urine Glucose (UA) (NEGATIVE) mg/dL Urine Ketones (NEGATIVE) mg/dL Urine Occult Blood (NEGATIVE) Urine Nitrite (NEGATIVE) Urine Bilirubin (NEGATIVE) Urine Urobilinogen (NORMAL) E.U./dL Ur Leukocyte Esterase (NEGATIVE) Urine RBC (0-5) /HPF Urine WBC (0-5) /HPF Ur Squamous Epith Cells (<= Few) Amorphous Sediment /LPF Urine Bacteria (None Seen) /HPF Urine Yeast Urine Culture Comments 07/02/19 07/02/19 07/02/19 Range/Units 04:35 04:35 04:35 WBC (4.8-10.8) x10^3/uL RBC (4.20-5.40) 10^6/uL Hgb (12.0-16.0) g/dL Hct (37.0-47.0) % MCV (81.0-99.0) fL MCH (27.0-31.0) pg MCHC (32.0-36.0) g/dL RDW (12.0-15.0) % Plt Count (130-450) 10^3/uL MPV (7.9-10.8) fL Neut # (Auto) Lymph # (Auto) Scott # (Auto) Eos # (Auto) Baso # (Auto) Absolute Nucleated RBC Total Counted Band Neuts % (Manual) (0 - 10) % Abnorm Lymph % (Manual) % Nucleated RBC % Neutrophils # (Manual) (1.5-6.6) 10^3/uL Lymphocytes # (Manual) (1.5-3.5) 10^3/uL Monocytes # (Manual) (0.0-1.0) 10^3/uL Eosinophils # (Manual) (0-0.7) 10^3/uL Basophils # (Manual) (0-0.1) 10^3/uL Differential Comment Manual Slide Review WBC Morphology (NORMAL) Platelet Estimate (NORMAL) Platelet Morphology (NORMAL) RBC Morph Micro Appear (NORMAL) Sodium 130 L (135-145) mmol/L Potassium 4.4 (3.5-5.0) mmol/L Chloride 109 (101-111) mmol/L Carbon Dioxide 13 L (21-32) mmol/L Anion Gap 8.0 (6-13) BUN 34 H (6-20) mg/dL Creatinine 1.5 H (0.4-1.0) mg/dL Estimated GFR (MDRD) 39 L (>89) Glucose 93 (70-100) mg/dL POC Whole Bld Glucose (70 - 100) mg/dL Lactic Acid (0.5-2.2) mmol/L Calcium 7.2 L (8.5-10.3) mg/dL Phosphorus 4.8 H (2.5-4.6) mg/dL Magnesium 1.7 (1.7-2.8) mg/dL Total Bilirubin 1.5 H (0.2-1.0) mg/dL Direct Bilirubin 0.7 H (0.1-0.5) mg/dL AST 27 (10-42) IU/L ALT < 10 L (10-60) IU/L Alkaline Phosphatase 529 H (42-121) IU/L Total Protein 5.0 L (6.7-8.2) g/dL Albumin < 1.0 L < 1.0 L (3.2-5.5) g/dL Globulin 4.2 (2.1-4.2) g/dL Urine Color Urine Clarity (CLEAR) Urine pH (5.0-7.5) PH Ur Specific [place] (1.002-1.030) Urine Protein (NEGATIVE) mg/dL Urine Glucose (UA) (NEGATIVE) mg/dL Urine Ketones (NEGATIVE) mg/dL Urine Occult Blood (NEGATIVE) Urine Nitrite (NEGATIVE) Urine Bilirubin (NEGATIVE) Urine Urobilinogen (NORMAL) E.U./dL Ur Leukocyte Esterase (NEGATIVE) Urine RBC (0-5) /HPF Urine WBC (0-5) /HPF Ur Squamous Epith Cells (<= Few) Amorphous Sediment /LPF Urine Bacteria (None Seen) /HPF Urine Yeast Urine Culture Comments 07/02/19 07/01/19 07/01/19 Range/Units 04:35 22:57 22:09 WBC 16.1 H (4.8-10.8) x10^3/uL RBC 3.54 L (4.20-5.40) 10^6/uL Hgb 10.7 L (12.0-16.0) g/dL Hct 34.0 L (37.0-47.0) % MCV 96.0 (81.0-99.0) fL MCH 30.2 (27.0-31.0) pg MCHC 31.5 L (32.0-36.0) g/dL RDW 19.1 H (12.0-15.0) % Plt Count 131 (130-450) 10^3/uL MPV 10.4 (7.9-10.8) fL Neut # (Auto) Not Reportable Lymph # (Auto) Not Reportable Scott # (Auto) Not Reportable Eos # (Auto) Not Reportable Baso # (Auto) Not Reportable Absolute Nucleated RBC Not Reportable Total Counted 100 Band Neuts % (Manual) 0 (0 - 10) % Abnorm Lymph % (Manual) 0 % Nucleated RBC % Not Reportable Neutrophils # (Manual) 12.7 H (1.5-6.6) 10^3/uL Lymphocytes # (Manual) 1.1 L (1.5-3.5) 10^3/uL Monocytes # (Manual) 2.3 H (0.0-1.0) 10^3/uL Eosinophils # (Manual) 0.0 (0-0.7) 10^3/uL Basophils # (Manual) 0.0 (0-0.1) 10^3/uL Differential Comment MANUAL DIFFERENTIAL Manual Slide Review WBC Morphology NORMAL APPEARANCE (NORMAL) Platelet Estimate DECREASED (<130,000) (NORMAL) Platelet Morphology NORMAL APPEARANCE (NORMAL) RBC Morph Micro Appear 2+ ANISOCYTOSIS (NORMAL) Sodium (135-145) mmol/L Potassium (3.5-5.0) mmol/L Chloride (101-111) mmol/L Carbon Dioxide (21-32) mmol/L Anion Gap (6-13) BUN (6-20) mg/dL Creatinine (0.4-1.0) mg/dL Estimated GFR (MDRD) (>89) Glucose (70-100) mg/dL POC Whole Bld Glucose 102 H (70 - 100) mg/dL Lactic Acid 2.9 H (0.5-2.2) mmol/L Calcium (8.5-10.3) mg/dL Phosphorus (2.5-4.6) mg/dL Magnesium (1.7-2.8) mg/dL Total Bilirubin (0.2-1.0) mg/dL Direct Bilirubin (0.1-0.5) mg/dL AST (10-42) IU/L ALT (10-60) IU/L Alkaline Phosphatase (42-121) IU/L Total Protein (6.7-8.2) g/dL Albumin (3.2-5.5) g/dL Globulin (2.1-4.2) g/dL Urine Color Urine Clarity (CLEAR) Urine pH (5.0-7.5) PH Ur Specific [place] (1.002-1.030) Urine Protein (NEGATIVE) mg/dL Urine Glucose (UA) (NEGATIVE) mg/dL Urine Ketones (NEGATIVE) mg/dL Urine Occult Blood (NEGATIVE) Urine Nitrite (NEGATIVE) Urine Bilirubin (NEGATIVE) Urine Urobilinogen (NORMAL) E.U./dL Ur Leukocyte Esterase (NEGATIVE) Urine RBC (0-5) /HPF Urine WBC (0-5) /HPF Ur Squamous Epith Cells (<= Few) Amorphous Sediment /LPF Urine Bacteria (None Seen) /HPF Urine Yeast Urine Culture Comments 07/01/19 07/01/19 07/01/19 Range/Units 21:07 19:25 18:35 WBC (4.8-10.8) x10^3/uL RBC (4.20-5.40) 10^6/uL Hgb (12.0-16.0) g/dL Hct (37.0-47.0) % MCV (81.0-99.0) fL MCH (27.0-31.0) pg MCHC (32.0-36.0) g/dL RDW (12.0-15.0) % Plt Count (130-450) 10^3/uL MPV (7.9-10.8) fL Neut # (Auto) Lymph # (Auto) Scott # (Auto) Eos # (Auto) Baso # (Auto) Absolute Nucleated RBC Total Counted Band Neuts % (Manual) (0 - 10) % Abnorm Lymph % (Manual) % Nucleated RBC % Neutrophils # (Manual) (1.5-6.6) 10^3/uL Lymphocytes # (Manual) (1.5-3.5) 10^3/uL Monocytes # (Manual) (0.0-1.0) 10^3/uL Eosinophils # (Manual) (0-0.7) 10^3/uL Basophils # (Manual) (0-0.1) 10^3/uL Differential Comment Manual Slide Review WBC Morphology (NORMAL) Platelet Estimate (NORMAL) Platelet Morphology (NORMAL) RBC Morph Micro Appear (NORMAL) Sodium (135-145) mmol/L Potassium (3.5-5.0) mmol/L Chloride (101-111) mmol/L Carbon Dioxide (21-32) mmol/L Anion Gap (6-13) BUN (6-20) mg/dL Creatinine (0.4-1.0) mg/dL Estimated GFR (MDRD) (>89) Glucose (70-100) mg/dL POC Whole Bld Glucose 48 L* (70 - 100) mg/dL Lactic Acid 3.8 H* (0.5-2.2) mmol/L Calcium (8.5-10.3) mg/dL Phosphorus (2.5-4.6) mg/dL Magnesium (1.7-2.8) mg/dL Total Bilirubin (0.2-1.0) mg/dL Direct Bilirubin (0.1-0.5) mg/dL AST (10-42) IU/L ALT (10-60) IU/L Alkaline Phosphatase (42-121) IU/L Total Protein (6.7-8.2) g/dL Albumin (3.2-5.5) g/dL Globulin (2.1-4.2) g/dL Urine Color DARK YELLOW Urine Clarity CLOUDY (CLEAR) Urine pH 5.0 (5.0-7.5) PH Ur Specific [place] >=1.030 H (1.002-1.030) Urine Protein 30 H (NEGATIVE) mg/dL Urine Glucose (UA) NEGATIVE (NEGATIVE) mg/dL Urine Ketones NEGATIVE (NEGATIVE) mg/dL Urine Occult Blood LARGE H (NEGATIVE) Urine Nitrite NEGATIVE (NEGATIVE) Urine Bilirubin MODERATE H (NEGATIVE) Urine Urobilinogen 0.2 (NORMAL) (NORMAL) E.U./dL Ur Leukocyte Esterase SMALL H (NEGATIVE) Urine RBC TNTC H (0-5) /HPF Urine WBC 11-25 H (0-5) /HPF Ur Squamous Epith Cells FEW Squamous (<= Few) Amorphous Sediment Moderate /LPF Urine Bacteria Moderate H (None Seen) /HPF Urine Yeast PRESENT Urine Culture Comments INDICATED 07/01/19 07/01/19 07/01/19 Range/Units 17:30 17:30 16:16 WBC 11.3 H (4.8-10.8) x10^3/uL RBC 3.03 L (4.20-5.40) 10^6/uL Hgb 9.2 L (12.0-16.0) g/dL Hct 29.8 L (37.0-47.0) % MCV 98.3 (81.0-99.0) fL MCH 30.4 (27.0-31.0) pg MCHC 30.9 L (32.0-36.0) g/dL RDW 19.1 H (12.0-15.0) % Plt Count 102 L (130-450) 10^3/uL MPV 10.7 (7.9-10.8) fL Neut # (Auto) Not Reportable Lymph # (Auto) Not Reportable Scott # (Auto) Not Reportable Eos # (Auto) Not Reportable Baso # (Auto) Not Reportable Absolute Nucleated RBC Not Reportable Total Counted 100 Band Neuts % (Manual) 12 H (0 - 10) % Abnorm Lymph % (Manual) 0 % Nucleated RBC % Not Reportable Neutrophils # (Manual) 9.5 H (1.5-6.6) 10^3/uL Lymphocytes # (Manual) 1.2 L (1.5-3.5) 10^3/uL Monocytes # (Manual) 0.6 (0.0-1.0) 10^3/uL Eosinophils # (Manual) 0.0 (0-0.7) 10^3/uL Basophils # (Manual) 0.0 (0-0.1) 10^3/uL Differential Comment MANUAL DIFFERENTIAL Manual Slide Review Indicated WBC Morphology (NORMAL) Platelet Estimate DECREASED (<130,000) (NORMAL) Platelet Morphology NORMAL APPEARANCE (NORMAL) RBC Morph Micro Appear 2+ POIKILOCYTOSIS (NORMAL) Sodium 130 L (135-145) mmol/L Potassium 4.3 (3.5-5.0) mmol/L Chloride 108 (101-111) mmol/L Carbon Dioxide 16 L (21-32) mmol/L Anion Gap 6.0 (6-13) BUN 35 H (6-20) mg/dL Creatinine 1.7 H (0.4-1.0) mg/dL Estimated GFR (MDRD) 34 L (>89) Glucose 77 (70-100) mg/dL POC Whole Bld Glucose 82 (70 - 100) mg/dL Lactic Acid (0.5-2.2) mmol/L Calcium 7.1 L (8.5-10.3) mg/dL Phosphorus 5.0 H (2.5-4.6) mg/dL Magnesium 1.4 L (1.7-2.8) mg/dL Total Bilirubin (0.2-1.0) mg/dL Direct Bilirubin (0.1-0.5) mg/dL AST (10-42) IU/L ALT (10-60) IU/L Alkaline Phosphatase (42-121) IU/L Total Protein (6.7-8.2) g/dL Albumin (3.2-5.5) g/dL Globulin (2.1-4.2) g/dL Urine Color Urine Clarity (CLEAR) Urine pH (5.0-7.5) PH Ur Specific [place] (1.002-1.030) Urine Protein (NEGATIVE) mg/dL Urine Glucose (UA) (NEGATIVE) mg/dL Urine Ketones (NEGATIVE) mg/dL Urine Occult Blood (NEGATIVE) Urine Nitrite (NEGATIVE) Urine Bilirubin (NEGATIVE) Urine Urobilinogen (NORMAL) E.U./dL Ur Leukocyte Esterase (NEGATIVE) Urine RBC (0-5) /HPF Urine WBC (0-5) /HPF Ur Squamous Epith Cells (<= Few) Amorphous Sediment /LPF Urine Bacteria (None Seen) /HPF Urine Yeast Urine Culture Comments 07/01/19 07/01/19 07/01/19 Range/Units 14:34 13:51 12:44 WBC (4.8-10.8) x10^3/uL RBC (4.20-5.40) 10^6/uL Hgb (12.0-16.0) g/dL Hct (37.0-47.0) % MCV (81.0-99.0) fL MCH (27.0-31.0) pg MCHC (32.0-36.0) g/dL RDW (12.0-15.0) % Plt Count (130-450) 10^3/uL MPV (7.9-10.8) fL Neut # (Auto) Lymph # (Auto) Scott # (Auto) Eos # (Auto) Baso # (Auto) Absolute Nucleated RBC Total Counted Band Neuts % (Manual) (0 - 10) % Abnorm Lymph % (Manual) % Nucleated RBC % Neutrophils # (Manual) (1.5-6.6) 10^3/uL Lymphocytes # (Manual) (1.5-3.5) 10^3/uL Monocytes # (Manual) (0.0-1.0) 10^3/uL Eosinophils # (Manual) (0-0.7) 10^3/uL Basophils # (Manual) (0-0.1) 10^3/uL Differential Comment Manual Slide Review WBC Morphology (NORMAL) Platelet Estimate (NORMAL) Platelet Morphology (NORMAL) RBC Morph Micro Appear (NORMAL) Sodium (135-145) mmol/L Potassium (3.5-5.0) mmol/L Chloride (101-111) mmol/L Carbon Dioxide (21-32) mmol/L Anion Gap (6-13) BUN (6-20) mg/dL Creatinine (0.4-1.0) mg/dL Estimated GFR (MDRD) (>89) Glucose (70-100) mg/dL POC Whole Bld Glucose 80 42 L* 51 L* (70 - 100) mg/dL Lactic Acid (0.5-2.2) mmol/L Calcium (8.5-10.3) mg/dL Phosphorus (2.5-4.6) mg/dL Magnesium (1.7-2.8) mg/dL Total Bilirubin (0.2-1.0) mg/dL Direct Bilirubin (0.1-0.5) mg/dL AST (10-42) IU/L ALT (10-60) IU/L Alkaline Phosphatase (42-121) IU/L Total Protein (6.7-8.2) g/dL Albumin (3.2-5.5) g/dL Globulin (2.1-4.2) g/dL Urine Color Urine Clarity (CLEAR) Urine pH (5.0-7.5) PH Ur Specific [place] (1.002-1.030) Urine Protein (NEGATIVE) mg/dL Urine Glucose (UA) (NEGATIVE) mg/dL Urine Ketones (NEGATIVE) mg/dL Urine Occult Blood (NEGATIVE) Urine Nitrite (NEGATIVE) Urine Bilirubin (NEGATIVE) Urine Urobilinogen (NORMAL) E.U./dL Ur Leukocyte Esterase (NEGATIVE) Urine RBC (0-5) /HPF Urine WBC (0-5) /HPF Ur Squamous Epith Cells (<= Few) Amorphous Sediment /LPF Urine Bacteria (None Seen) /HPF Urine Yeast Urine Culture Comments Impression and Recommendations - Palliative Care Impression: This is a 34-year-old woman who has been hospitalized since 5 with severe pneumonia, sepsis, and acutely and admitted to [facility]. She had made some improvements, though remained mostly bedbound, has remained fearful and anxious regarding her underlying cancer and health. Unfortunately she has had a setback, but with recurrent sepsis, at this point attributed to UTI, and still being managed now back in the ICU. Patient remains quite frail, palliative care will continue to follow and support patient and family regarding goals of care and transition planning Recommendations/Counseling Done: 1. Acute on chronic pain. Patient was being weaned off IV medications, with goal to transition to outpatient setting. She is currently on Duragesic 75 mcg patch, she is presenting with increasing pain and discomfort secondary to her ascites and unknown if she has more of an acute process going on or progressive disease. Would recommend resuming morphine 2 mg IV every 2 hours as needed for acute symptoms of pain, with transition back to oxycodone 10 mg as needed for breakthrough pain as stabilizes. 2. Metastatic colon cancer with mets to liver. Would recommend CEA testing, On 06/10 her CEA was 46.3, 05/28 38.7 had increased only slightly. She was last treated with FOLFOX on 06/13-week before she was hospitalized. 3. Advanced care planning. Patient quite resistant and anxious regarding engaging in conversation at this point regarding goals of care. Did have a long extensive conversation with her , he is continuing to need to work to support the family. He will be in late tonight, does understand patient is acutely ill, and her goals for rehab to be able to return to treatment, may be at risk if she is not able to stabilize fairly quickly. Extensive conversation regarding the continuum of care, from rehab, to home health, and to hospice support. He does verbalize understanding, report to the hospitalist to follow- up with update later today. Time Spent: 45 minutes with getting 50% of this done in counseling regarding goals of care, coordination with social work, hospitalist, and.
[2019-07-02] MEDS: SODIUM CHLORIDE FLUSH 0.9% 10 ML SYRINGE IVP PRN (13:54)
[2019-07-02] MEDS: PROCHLORPERAZINE 10 MG/2 ML VIAL IVP PRN (14:34)
[2019-07-02] MEDS: VANCOMYCIN INJ 1 GM, VANCOMYCIN INJ 250 MG in SODIUM CHLORIDE 0.9% 250 ML IV SCH (19:46)
[2019-07-02] MEDS: INSULIN GLARGINE 300 UNIT/3 ML PEN SUBQ SCH (21:03)
[2019-07-02] MEDS: MIRTAZAPINE 15 MG TABLET PO SCH (21:05)
[2019-07-02] MEDS: MIN OIL/DIMETHICON/COCONUT OIL 92 GM TUBE TOP PRN (21:22)
[2019-07-03] MEDS: SODIUM CHLORIDE FLUSH 0.9% 10 ML SYRINGE IVP SCH ×3 (01:44→17:26)
[2019-07-03] MEDS: DEXTROSE 5%-0.9% NACL 1,000 ML IV SCH ×2 (01:45→13:46)
[2019-07-03] MEDS: oxyCODONE 5 MG TABLET PO PRN ×6 (04:08→23:30)
[2019-07-03 06:33] LABS: CALCIUM 7.1 mg/dL (8.5-10.3)
[2019-07-03 06:57] LABS: BASOPHILS # (AUTO) 0.1 10^3/uL (0.0-0.1); BASOPHILS % (AUTO) 0.6 %; CALCIUM 7.1 mg/dL (8.5-10.3); CREATININE 1.6 mg/dL (0.4-1.0); EOSINOPHILS # (AUTO) 0.1 10^3/uL (0.0-0.7); EOSINOPHILS % (AUTO) 0.5 %; HGB - HEMOGLOBIN 10.4 g/dL (12.0-16.0); LYMPHOCYTES # (AUTO) 2.1 10^3/uL (1.5-3.5); MEAN CORPUSCULAR HEMOGLOBIN 30.1 pg (27.0-31.0); MEAN CORPUSCULAR HGB CONC 30.1 g/dL (32.0-36.0); MEAN CORPUSCULAR VOLUME 100.3 fL (81.0-99.0); MONOCYTES # (AUTO) 2.5 10^3/uL (0.0-1.0); MONOCYTES % (AUTO) 13.9 %; NEUTROPHILS # (AUTO) 12.6 10^3/uL (1.5-6.6); NEUTROPHILS % (AUTO) 71.5 %; PLT - PLATELET COUNT 129 10^3/uL (130-450); RED BLOOD COUNT 3.45 10^6/uL (4.20-5.40); RED CELL DISTRIBUTION WIDTH 18.9 % (12.0-15.0); WHITE BLOOD COUNT 17.6 x10^3/uL (4.8-10.8)
[2019-07-03] MEDS: PANTOPRAZOLE 40 MG TABLET PO SCH (07:10)
[2019-07-03 07:28] LABS: RBC MORPHOLOGY (MULTIPLE) 3+ ANISOCYTOSIS (NORMAL)
[2019-07-03] MEDS: HEPARIN 5,000 UNIT/ML VIAL SUBQ SCH ×2 (08:04→21:26)
[2019-07-03] MEDS: INSULIN ASPART 300 UNIT/3 ML PEN SUBQ SCH ×4 (08:05→21:13)
[2019-07-03] MEDS: CEFEPIME 2 GM in SODIUM CHLORIDE 0.9% MINIBAG 100 ML IV SCH ×2 (08:16→21:12)
[2019-07-03] MEDS: ZINC OXIDE 20% OINT 30 GM TUBE TOP PRN ×3 (09:00→21:28)
[2019-07-03] MEDS: FLUCONAZOLE 200 MG/100 ML 50 ML IV SCH (10:00)
[2019-07-03] MEDS: CHLORHEXIDINE GLUCONATE 15 ML UDC PO SCH ×2 (10:05→21:13)
[2019-07-03] MEDS ORDERED: ALBUMIN 25% 12.5 GM/50 ML VIAL IV STA (10:45)
[2019-07-03] MEDS: SODIUM CHLORIDE 0.9% 500 ML IV PRN (10:57)
[2019-07-03] MEDS: SODIUM CHLORIDE FLUSH 0.9% 10 ML SYRINGE IVP PRN (12:54)
--- NOTE | 2019-07-03 16:56 | PROVIDER PROGRESS NOTE ---
Assessment/Plan - Problem List (1) Severe sepsis Assessment/Plan: Hypotension has improved, but WBC still rising (11>> 16 yesterday>> 17.6 today). The source appears to be a UTI. The Stanton was removed yesterday, she needed a straight cath for urinary retention. Continue new iv antibx x2 days and then transition to oral antibx. Await urine Cx. Will taper the Levophed to off today (2) UTI (urinary tract infection) Assessment/Plan: Yeast grew from the newest urine cx. She is on iv Diflucan, continue this and will change to po Diflucan after 48 hours iv (3) Urinary retention Assessment/Plan: Will try to keep Stanton out: she wants it out, but Cathy Osei, DIAMOND SORTER advised it be put in so that she does not need repeat straight caths, which are uncomfortable (4) DM type 1 (diabetes mellitus, type 1) Assessment/Plan: Continue cc diet, Lantus and ss Insulin iv D5 was needed when she was transferred into the ICU 2 days ago; will decrease and stop this (5) Colon cancer metastasized to liver Assessment/Plan: CEA level was requested by Palliative Care DIAMOND SORTER, in order to have discussion regarding the prognosis and further plan (6) Malignant ascites Assessment/Plan: She continues to have 1.5L removed. IV Albumen will again be give today, to help intravascular oncotic pressure (7) Severe protein-calorie malnutrition Assessment/Plan: Appetite better over last 2 days (8) Anemia Assessment/Plan: Stable H/H (9) Thrombocytopenia Assessment/Plan: This was felt to be due to sepsis, at admission, is trending upward (10) History of anxiety Assessment/Plan: She is on meds, is more stable and cooperative/communicative the past 2 days (11) Chronic pain due to neoplasm Assessment/Plan: Pain control is adequate currently, without over sedation (12) Physical deconditioning Assessment/Plan: As iv Levophed is weaned to off (later today), will restart OOB and Physical Therapy Possibly transfer out of ICU tomorrow (13) Bacteremia due to Streptococcus pneumoniae Assessment/Plan: She has nbow finished the course of antibiotics for this, which was started at admission (14) Pneumonia Assessment/Plan: She has now finished the course of antibiotics for this, which was started at admission - Current Meds Current Meds: Current Medications Generic Name Dose Route Start Last Admin Trade Name Freq PRN Reason Stop Dose Admin Chlorhexidine Gluconate 15 ml 06/21/19 23:00 07/03/19 10:05 Peridex PO 15 ml BID AIRAM Administration Fentanyl 1 patch 06/19/19 11:00 07/01/19 10:36 Duragesic TOP 1 patch Q72H AIRAM Administration Fentanyl 1 patch 06/19/19 11:00 07/01/19 10:36 Duragesic TOP 1 patch Q72H AIRAM Administration Guaifenesin/Codeine Phosphate 5 ml 06/20/19 19:54 06/21/19 03:50 Robitussin Ac PO 5 ml Q6HR PRN Administration Cough Heparin Sodium (Beef Lung) 30 - 50 unit 06/27/19 13:36 07/02/19 12:36 IVP 50 unit PRN PRN Administration Central Line Protocol (<24 hr) Heparin Sodium (Porcine) 5,000 unit 07/01/19 21:00 07/03/19 08:04 SUBQ 5,000 unit BID AIRAM Administration Vancomycin HCl 1 gm/ 250 mls @ 166.667 mls/hr 07/02/19 20:00 07/02/19 21:25 Vancomycin HCl 250 mg/ Sodium IV Infused Chloride Q24H AIRAM Infusion Cefepime HCl 2 gm/ Sodium 100 mls @ 200 mls/hr 07/02/19 00:01 07/03/19 10:09 Chloride IV Infused BID AIRAM Infusion Dextrose/Sodium Chloride 1,000 mls @ 83.333 mls/hr 07/01/19 22:00 07/03/19 15:10 D5ns IV 83.333 mls/hr .Q12H AIRAM Infusion Sodium Chloride 500 mls @ 0 mls/hr 07/01/19 21:36 07/03/19 10:58 Normal Saline 0.9% IV 0 mls/hr Q24H PRN Infusion TKO RATE TKO Fluconazole 50 mls @ 100 mls/hr 07/02/19 09:00 07/03/19 10:55 Diflucan 200 Mg/100 Ml IV Infused DAILY AIRAM Infusion Insulin Aspart 3 - 11 unit 06/27/19 17:00 07/03/19 12:34 Novolog SUBQ Not Given 0800,1200,1700,2100 [facility] Protocol Insulin Glargine 20 unit 07/01/19 21:00 07/02/19 21:03 Lantus Solostar SUBQ 20 unit QPM AIRAM Administration Mineral Oil 1 applic 06/19/19 19:23 07/02/19 21:22 Cavilon TOP 1 applic PRN PRN Administration Skin Care Mirtazapine 15 mg 06/27/19 21:00 07/02/19 21:05 Remeron PO 15 mg QPM AIRAM Administration Multi-Ingredient Ointment 1 applic 06/24/19 17:27 06/30/19 16:46 Zinc Oxide TOP 1 applic PRN PRN Administration Skin Care Ondansetron HCl 4 mg 06/18/19 19:26 07/02/19 11:16 Zofran Inj IVP 4 mg Q6HR PRN Administration Nausea / Vomiting Oxycodone HCl 10 mg 06/27/19 19:31 07/03/19 15:15 Roxicodone PO 10 mg Q4HR PRN Administration PAIN Pantoprazole Sodium 40 mg 06/30/19 08:00 07/03/19 07:10 Protonix PO 40 mg QDAC AIRAM Administration Prochlorperazine Edisylate 10 mg 07/02/19 14:01 07/02/19 14:34 Compazine Inj IVP 10 mg Q4HR PRN Administration Nausea / Vomiting Sodium Chloride 10 ml 06/19/19 01:00 07/03/19 08:23 Normal Saline Flush 0.9% IVP 10 ml 0100,0900,1700 AIRAM Administration Sodium Chloride 10 ml 06/18/19 19:26 07/03/19 12:54 Normal Saline Flush 0.9% IVP 10 ml PRN PRN Administration NEEDED PER PROVIDER ORDERS Sodium Chloride 20 ml 06/20/19 20:42 06/30/19 06:21 Normal Saline Flush 0.9% IVP 20 ml PRN PRN Administration After Blood Draw - Lab Result Fish Bone Diagrams: 07/04/19 04:20 07/04/19 04:40 - Additional Planning My Orders: My Active Orders 07/02/19 16:54 CUL,BODY FLUID(AEROBIC) [RM] Urgent 07/03/19 14:05 Stanton Continuation and Care [RC] QSHIFT Stanton Insertion [RC] QSHIFT 07/04/19 05:00 ALBUMIN [CHEM] DAILYLAB 07/05/19 05:00 ALBUMIN [CHEM] DAILYLAB Subjective - Subjective Patient Reports: Feeling Better, Other (eating a regular meal with an appetite currently) Nursing Reports: Other (Since stanton came out (yesterday), her residual in urinary bladder is >300 cc but inaccurate due to ascites) Objective Vital Signs: Vital Signs - 24 hr 07/02/19 07/02/19 07/02/19 17:00 18:00 19:00 Temperature Heart Rate [ 115 H 116 H 115 H Monitoring electrodes] Respiratory 10 L 18 16 Rate Blood Pressure 92/54 L 96/78 87/60 L [Right Brachial artery] O2 Saturation 98 96 97 07/02/19 07/02/19 07/02/19 19:56 20:00 21:00 Temperature 36.7 C Heart Rate [ 113 H 112 H 111 H Monitoring electrodes] Respiratory 13 13 18 Rate Blood Pressure 96/64 97/64 [Right Brachial artery] O2 Saturation 98 98 99 07/02/19 07/02/19 07/03/19 22:00 23:00 00:00 Temperature 36.4 C L Heart Rate [ 108 H 112 H 114 H Monitoring electrodes] Respiratory 11 L 9 L 10 L Rate Blood Pressure 101/64 98/60 115/78 [Right Brachial artery] O2 Saturation 98 97 100 07/03/19 07/03/19 07/03/19 01:00 02:00 03:00 Temperature Heart Rate [ 110 H 122 H 117 H Monitoring electrodes] Respiratory 18 11 L 20 Rate Blood Pressure 104/69 103/83 H 97/60 [Right Brachial artery] O2 Saturation 99 99 100 07/03/19 07/03/19 07/03/19 04:00 05:00 06:00 Temperature 36.6 C Heart Rate [ 121 H 116 H 113 H Monitoring electrodes] Respiratory 14 10 L 12 Rate Blood Pressure 100/63 92/67 89/64 L [Right Brachial artery] O2 Saturation 100 100 100 07/03/19 07/03/19 07/03/19 07:00 07:55 08:03 Temperature 36.5 C Heart Rate [ 117 H 119 H Monitoring electrodes] Respiratory 11 L 12 Rate Blood Pressure 84/56 L 89/61 L [Right Brachial artery] O2 Saturation 99 100 07/03/19 07/03/19 07/03/19 09:00 10:00 12:00 Temperature 36.3 C L Heart Rate [ 118 H 120 H 118 H Monitoring electrodes] Respiratory 12 11 L 19 Rate Blood Pressure 91/67 87/61 L 103/65 [Right Brachial artery] O2 Saturation 100 99 100 07/03/19 07/03/19 07/03/19 12:57 14:00 15:00 Temperature Heart Rate [ 121 H 118 H 121 H Monitoring electrodes] Respiratory 12 12 16 Rate Blood Pressure 103/65 101/75 104/78 [Right Brachial artery] O2 Saturation 100 99 100 07/03/19 07/03/19 07/03/19 15:15 15:22 15:25 Temperature Heart Rate [ 122 H Monitoring electrodes] Respiratory Rate Blood Pressure 106/82 H 96/71 99/71 [Right Brachial artery] O2 Saturation 07/03/19 07/03/19 07/03/19 15:30 15:45 16:00 Temperature Heart Rate [ 117 H Monitoring electrodes] Respiratory 11 L Rate Blood Pressure 104/76 90/68 87/64 L [Right Brachial artery] O2 Saturation 99 07/03/19 16:26 Temperature 36.6 C Heart Rate [ 120 H Monitoring electrodes] Respiratory Rate Blood Pressure 93/65 [Right Brachial artery] O2 Saturation Oxygen O2 Source Room air I&O (Last 24 Hrs): Intake and Output Totals x24h 07/01/19 07/02/19 07/03/19 23:59 23:59 23:59 Intake Total 3921 3119.738 2737.539 Output Total 581 2858 300 Balance 3340 405.673 1336.539 HEENT: Mucous membr. moist/pink Neck: Supple Neuro: Alert, Non Focal Cardiovascular: Regular rate, Other (tachycardiac) Respiratory: No respiratory distress Abdomen: Other (colostomy and tubes are in place) Extremities: Other (Trace pedal edema) - Results Results: Laboratory Results WBC 17.6 x10^3/uL (4.8-10.8) H 07/03/19 04:12 RBC 3.45 10^6/uL (4.20-5.40) L 07/03/19 04:12 Hgb 10.4 g/dL (12.0-16.0) L 07/03/19 04:12 Hct 34.6 % (37.0-47.0) L 07/03/19 04:12 MCV 100.3 fL (81.0-99.0) H 07/03/19 04:12 MCH 30.1 pg (27.0-31.0) 07/03/19 04:12 MCHC 30.1 g/dL (32.0-36.0) L 07/03/19 04:12 RDW 18.9 % (12.0-15.0) H 07/03/19 04:12 Plt Count 129 10^3/uL (130-450) L 07/03/19 04:12 MPV 10.0 fL (7.9-10.8) 07/03/19 04:12 Neut # (Auto) 12.6 10^3/uL (1.5-6.6) H 07/03/19 04:12 Lymph # (Auto) 2.1 10^3/uL (1.5-3.5) 07/03/19 04:12 [place] # (Auto) 2.5 10^3/uL (0.0-1.0) H 07/03/19 04:12 Eos # (Auto) 0.1 10^3/uL (0.0-0.7) 07/03/19 04:12 Baso # (Auto) 0.1 10^3/uL (0.0-0.1) 07/03/19 04:12 Absolute Nucleated RBC 0.00 x10^3/uL 07/03/19 04:12 Total Counted 100 07/02/19 04:35 Band Neuts % (Manual) 0 % (0-10) 07/02/19 04:35 Abnorm Lymph % (Manual) 0 % 07/02/19 04:35 Metamyelocytes % 2 % (-0) H 06/21/19 06:08 Myelocytes % 2 % (-0) H 06/21/19 06:08 Nucleated RBC % 0.0 /100WBC 07/03/19 04:12 Neutrophils # (Manual) 12.7 10^3/uL (1.5-6.6) H 07/02/19 04:35 Lymphocytes # (Manual) 1.1 10^3/uL (1.5-3.5) L 07/02/19 04:35 Monocytes # (Manual) 2.3 10^3/uL (0.0-1.0) H 07/02/19 04:35 Eosinophils # (Manual) 0.0 10^3/uL (0-0.7) 07/02/19 04:35 Basophils # (Manual) 0.0 10^3/uL (0-0.1) 07/02/19 04:35 Differential Comment MANUAL DIFFERENTIAL 07/02/19 04:35 Manual Slide Review Indicated 07/03/19 04:12 WBC Morphology NORMAL APPEARANCE (NORMAL) 07/02/19 04:35 Platelet Estimate DECREASED (<130,000) (NORMAL) 07/02/19 04:35 Platelet Morphology NORMAL APPEARANCE (NORMAL) 07/02/19 04:35 RBC Morph Micro Appear 1+ ANISOCYTOSIS (NORMAL) 1+ DERRICK CELLS (NORMAL) 1+ MICROCYTOSIS (NORMAL) 1+ HYPOCHROMASIA (NORMAL) 1+ OVALOCYTES (NORMAL) 1+ SCHISTOCYTES (NORMAL) 06/20/19 16:58 RBC Morph Micro Appear 1+ ANISOCYTOSIS (NORMAL) 1+ DERRICK CELLS (NORMAL) 1+ MICROCYTOSIS (NORMAL) 1+ HYPOCHROMASIA (NORMAL) 1+ OVALOCYTES (NORMAL) 1+ SCHISTOCYTES (NORMAL) 06/20/19 16:58 RBC Morph Micro Appear 1+ ANISOCYTOSIS (NORMAL) 1+ DERRICK CELLS (NORMAL) 1+ MICROCYTOSIS (NORMAL) 1+ HYPOCHROMASIA (NORMAL) 1+ OVALOCYTES (NORMAL) 1+ SCHISTOCYTES (NORMAL) 06/20/19 16:58 RBC Morph Micro Appear 1+ ANISOCYTOSIS (NORMAL) 1+ DERRICK CELLS (NORMAL) 1+ MICROCYTOSIS (NORMAL) 1+ HYPOCHROMASIA (NORMAL) 1+ OVALOCYTES (NORMAL) 1+ SCHISTOCYTES (NORMAL) 06/20/19 16:58 RBC Morph Micro Appear 1+ ANISOCYTOSIS (NORMAL) 1+ HYPOCHROMASIA (NORMAL) 1+ OVALOCYTES (NORMAL) 06/21/19 06:08 RBC Morph Micro Appear 1+ ANISOCYTOSIS (NORMAL) 1+ HYPOCHROMASIA (NORMAL) 1+ OVALOCYTES (NORMAL) 06/21/19 06:08 RBC Morph Micro Appear 1+ ANISOCYTOSIS (NORMAL) 1+ HYPOCHROMASIA (NORMAL) 1+ OVALOCYTES (NORMAL) 06/21/19 06:08 RBC Morph Micro Appear 1+ HYPOCHROMASIA (NORMAL) 06/22/19 04:42 RBC Morph Micro Appear 1+ ANISOCYTOSIS (NORMAL) 1+ HYPOCHROMASIA (NORMAL) 06/23/19 05:02 RBC Morph Micro Appear 1+ ANISOCYTOSIS (NORMAL) 1+ HYPOCHROMASIA (NORMAL) 06/23/19 05:02 RBC Morph Micro Appear 1+ POLYCHROMASIA (NORMAL) 1+ HYPOCHROMASIA (NORMAL) 1+ ANISOCYTOSIS (NORMAL) 06/24/19 07:17 RBC Morph Micro Appear 1+ POLYCHROMASIA (NORMAL) 1+ HYPOCHROMASIA (NORMAL) 1+ ANISOCYTOSIS (NORMAL) 06/24/19 07:17 RBC Morph Micro Appear 1+ POLYCHROMASIA (NORMAL) 1+ HYPOCHROMASIA (NORMAL) 1+ ANISOCYTOSIS (NORMAL) 06/24/19 07:17 RBC Morph Micro Appear 2+ ANISOCYTOSIS (NORMAL) 2+ POIKILOCYTOSIS (NORMAL) 07/01/19 17:30 RBC Morph Micro Appear 2+ ANISOCYTOSIS (NORMAL) 2+ POIKILOCYTOSIS (NORMAL) 07/01/19 17:30 RBC Morph Micro Appear 2+ ANISOCYTOSIS (NORMAL) 07/02/19 04:35 RBC Morph Micro Appear 3+ ANISOCYTOSIS (NORMAL) 07/03/19 04:12 PT 16.7 secs (9.9-12.6) H 06/27/19 04:40 INR 1.5 (0.8-1.2) H 06/27/19 04:40 Fibrinogen 575 mg/dL (220-496) H 06/19/19 18:47 Bld Gas Analysis Time 0527 06/19/19 05:15 Sample Site RIGHT RADIAL 06/19/19 05:15 ABG pH 7.41 (7.35-7.45) 06/19/19 05:15 ABG pCO2 31 mmHg (34-45) L 06/19/19 05:15 ABG pO2 72 mmHg (80-100) L 06/19/19 05:15 ABG HCO3 18.9 mmol/L (22.0-26.0) L 06/19/19 05:15 ABG Total CO2 19.9 MMOL/L (21.0-29.0) L 06/19/19 05:15 ABG O2 Saturation 94 % (94-98) 06/19/19 05:15 ABG Base Excess -5.0 mmol/L (-2.0-3.0) L 06/19/19 05:15 Ramón Test POSITIVE 06/19/19 05:15 VBG pH 7.374 (7.31-7.41) 06/26/19 04:20 VBG pCO2 25.5 mmHg (41-51) L 06/18/19 18:46 VBG pO2 35.5 mmHg (25-47) 06/18/19 18:46 VBG HCO3 11.7 mmol/L (23-28) L 06/18/19 18:46 VBG Total CO2 12.5 mmol/L (24-29) L 06/18/19 18:46 VBG O2 Saturation 56.2 % (60-80) L 06/18/19 18:46 VBG Base Excess -13.5 mmol/L (-2 - +2) L 06/18/19 18:46 Ionized Calcium 1.09 mmol/L (1.15-1.33) L 06/26/19 04:20 O2 Delivery Device OXYMASK 06/19/19 05:15 O2 Liters/Min 4.00 LPM 06/19/19 05:15 FiO2 0.36 06/19/19 05:15 Sodium 131 mmol/L (135-145) L 07/03/19 04:12 Potassium 4.7 mmol/L (3.5-5.0) 07/03/19 04:14 Chloride 107 mmol/L (101-111) 07/03/19 04:12 Carbon Dioxide 14 mmol/L (21-32) L 07/03/19 04:12 Anion Gap 10.0 (6-13) 07/03/19 04:12 BUN 37 mg/dL (6-20) H 07/03/19 04:12 Creatinine 1.6 mg/dL (0.4-1.0) H 07/03/19 04:12 Estimated GFR (MDRD) 36 (>89) L 07/03/19 04:12 Glucose 246 mg/dL (70-100) H 07/03/19 04:12 POC Whole Bld Glucose 128 mg/dL (70 - 100) H 07/03/19 12:15 Glycated Hemoglobin 8.1 % (4.6-6.2) H 06/18/19 18:09 Estim Average Glucose 186 (70-100) H 06/18/19 18:09 Lactic Acid 2.0 mmol/L (0.5-2.2) 07/02/19 09:00 Calcium 7.1 mg/dL (8.5-10.3) L 07/03/19 04:14 Phosphorus 6.0 mg/dL (2.5-4.6) H 07/03/19 04:14 Magnesium 2.0 mg/dL (1.7-2.8) 07/03/19 04:14 Total Bilirubin 1.5 mg/dL (0.2-1.0) H 07/02/19 04:35 Direct Bilirubin 0.7 mg/dL (0.1-0.5) H 07/02/19 04:35 AST 27 IU/L (10-42) 07/02/19 04:35 ALT < 10 IU/L (10-60) L 07/02/19 04:35 Alkaline Phosphatase 529 IU/L (42-121) H 07/02/19 04:35 Total Creatine Kinase 105 IU/L (22-269) 06/18/19 18:09 Total Protein 5.0 g/dL (6.7-8.2) L 07/02/19 04:35 Albumin 1.0 g/dL (3.2-5.5) L 07/03/19 04:14 Globulin 4.2 g/dL (2.1-4.2) 07/02/19 04:35 Albumin/Globulin Ratio 0.3 (1.0-2.2) L 06/18/19 18:09 Lipase 15 U/L (22-51) L 06/18/19 18:09 Carcinoembryonic Ag 57.2 ng/mL 07/03/19 04:40 TSH 2.50 uIU/mL (0.34-5.60) 06/18/19 18:09 Urine Color DARK YELLOW 07/01/19 19:25 Urine Clarity CLOUDY (CLEAR) 07/01/19 19:25 Urine pH 5.0 PH (5.0-7.5) 07/01/19 19:25 Ur Specific [place] >=1.030 (1.002-1.030) H 07/01/19 19:25 Urine Protein 30 mg/dL (NEGATIVE) H 07/01/19 19:25 Urine Glucose (UA) NEGATIVE mg/dL (NEGATIVE) 07/01/19 19:25 Urine Ketones NEGATIVE mg/dL (NEGATIVE) 07/01/19 19:25 Urine Occult Blood LARGE (NEGATIVE) H 07/01/19 19:25 Urine Nitrite NEGATIVE (NEGATIVE) 07/01/19 19:25 Urine Bilirubin MODERATE (NEGATIVE) H 07/01/19 19:25 Urine Ictotest Cancelled 06/18/19 18:16 Urine Urobilinogen 0.2 (NORMAL) E.U./dL (NORMAL) 07/01/19 19:25 Ur Leukocyte Esterase SMALL (NEGATIVE) H 07/01/19 19:25 Urine RBC TNTC /HPF (0-5) H 07/01/19 19:25 Urine WBC 11-25 /HPF (0-5) H 07/01/19 19:25 Ur Squamous Epith Cells FEW Squamous (<= Few) 07/01/19 19:25 Amorphous Sediment Moderate /LPF 07/01/19 19:25 Urine Bacteria Moderate /HPF (None Seen) H 07/01/19 19:25 Urine Yeast PRESENT 07/01/19 19:25 Ur Microscopic Review NOT INDICATED 06/18/19 19:30 Urine Culture Comments INDICATED 07/01/19 19:25 Fluid Source PERITONEAL 06/25/19 13:45 Fluid Color YELLOW 06/25/19 13:45 Fluid Clarity CLEAR 06/25/19 13:45 Fluid WBC 526 /mm^3 06/25/19 13:45 Fluid RBC < 3000 /mm^3 06/25/19 13:45 Fluid Neutrophils % 89 % 06/25/19 13:45 Fluid Lymphocytes % 4 06/25/19 13:45 Fluid Monocytes % 7 % 06/25/19 13:45 Fld Mesothelial Cell % 1 % 06/19/19 18:45 Nasal Screen MRSA (PCR) NEGATIVE (NEGATIVE) 06/18/19 20:10 Last Dose Date UNKNOWN 06/21/19 06:08 Last Dose Time UNKNOWN 06/21/19 06:08 Vancomycin Trough 38.8 ug/mL (10.0-20.0) H* 06/20/19 08:22 Random Vancomycin 16.9 ug/mL 06/21/19 06:08 Salicylates < 6.0 mg/dL 06/18/19 18:09 Urine Opiates Screen NEGATIVE (NEGATIVE) 06/18/19 18:16 Ur Oxycodone Screen POSITIVE (NEGATIVE) H 06/18/19 18:16 Urine Methadone Screen NEGATIVE (NEGATIVE) 06/18/19 18:16 Ur Propoxyphene Screen NEGATIVE (NEGATIVE) 06/18/19 18:16 Acetaminophen < 10 ug/mL (10-30) L 06/18/19 18:09 Ur Barbiturates Screen NEGATIVE (NEGATIVE) 06/18/19 18:16 Ur Tricyclics Screen NEGATIVE (NEGATIVE) 06/18/19 18:16 Ur Phencyclidine Scrn NEGATIVE (NEGATIVE) 06/18/19 18:16 Ur Amphetamine Screen NEGATIVE (NEGATIVE) 06/18/19 18:16 U Methamphetamines Scrn NEGATIVE (NEGATIVE) 06/18/19 18:16 U Benzodiazepines Scrn NEGATIVE (NEGATIVE) 06/18/19 18:16 Urine Cocaine Screen NEGATIVE (NEGATIVE) 06/18/19 18:16 U Cannabinoids Screen NEGATIVE (NEGATIVE) 06/18/19 18:16 Ethyl Alcohol < 5.0 mg/dL 06/18/19 18:09 Serum Ketones NEGATIVE (NEGATIVE) 06/19/19 18:36 Ref Lab Test Result REPORT 06/19/19 18:45 Ref Lab Test Result REPORT 06/25/19 13:45 Blood Type A NEGATIVE 06/24/19 08:05 Antibody Screen NEGATIVE 06/24/19 08:05 Crossmatch IS Only See Detail 06/24/19 08:05 Sepsis Event Note (H) - Evaluation Current Stage of Sepsis: Resolved Possible source of Sepsis: positive: Pulmonary - Sepsis Criteria Sepsis Criteria: Recorded Heart Rate greater than 90 bpm, Recorded Respiratory Rate greater than 20, Respiratory: Increasing oxygen requirements, WBC count greater than 12,000 or less than 4000, SBP drop more than 40mHg, MAP less than 65 mmHg, SBP less than 90 mmHg, Metabolic: lactate > 2 mmol/L, Hepatic: B ilirubin greater than 2mg/dl
[2019-07-03 19:49] LABS: VANCOMYCIN,TROUGH 25.7 ug/mL (10.0-20.0)
[2019-07-03] MEDS: VANCOMYCIN INJ 1 GM, VANCOMYCIN INJ 250 MG in SODIUM CHLORIDE 0.9% 250 ML IV SCH (20:03)
[2019-07-03] MEDS: MIRTAZAPINE 15 MG TABLET PO SCH (21:12)
[2019-07-03] MEDS: INSULIN GLARGINE 300 UNIT/3 ML PEN SUBQ SCH (21:26)
[2019-07-03] MEDS: MIN OIL/DIMETHICON/COCONUT OIL 92 GM TUBE TOP PRN (21:28)
[2019-07-04] MEDS: DEXTROSE 5%-0.9% NACL 1,000 ML IV SCH ×3 (01:52→15:13)
[2019-07-04] MEDS: SODIUM CHLORIDE FLUSH 0.9% 10 ML SYRINGE IVP SCH ×3 (01:53→21:29)
[2019-07-04] MEDS: PROCHLORPERAZINE 10 MG/2 ML VIAL IVP PRN (02:58)
[2019-07-04] MEDS ORDERED: VANCOMYCIN INJ 1 GM in SODIUM CHLORIDE 0.9% 250 ML IV SCH (03:00)
[2019-07-04 04:54] LABS: BASOPHILS % (AUTO) 0.3 %; EOSINOPHILS % (AUTO) 0.1 %; HGB - HEMOGLOBIN 9.4 g/dL (12.0-16.0); LYMPHOCYTES % (AUTO) 13.7 %; MEAN CORPUSCULAR HEMOGLOBIN 29.3 pg (27.0-31.0); MEAN CORPUSCULAR HGB CONC 30.6 g/dL (32.0-36.0); MEAN CORPUSCULAR VOLUME 95.6 fL (81.0-99.0); MEAN PLATELET VOLUME 9.9 fL (7.9-10.8); MONOCYTES % (AUTO) 11.4 %; NEUTROPHILS % (AUTO) 72.7 %; PLT - PLATELET COUNT 79 10^3/uL (130-450); RED BLOOD COUNT 3.21 10^6/uL (4.20-5.40); RED CELL DISTRIBUTION WIDTH 18.6 % (12.0-15.0); WHITE BLOOD COUNT 15.5 x10^3/uL (4.8-10.8)
[2019-07-04 05:04] LABS: ABNORMAL LYMPHS % (MANUAL) 0 %
[2019-07-04] MEDS: oxyCODONE 5 MG TABLET PO PRN ×6 (05:05→22:18)
[2019-07-04 05:07] LABS: ALBUMIN 1.1 g/dL (3.2-5.5); CALCIUM 7.1 mg/dL (8.5-10.3); CREATININE 1.6 mg/dL (0.4-1.0)
[2019-07-04 05:35] LABS: BAND NEUTROPHILS % (MANUAL) 6 %; DIFFERENTIAL COMMENT MANUAL DIFFERENTIAL; LYMPHOCYTES # (MANUAL) 0.9 10^3/uL (1.5-3.5); LYMPHOCYTES % (MANUAL) 6 %; MONOCYTES # (MANUAL) 1.6 10^3/uL (0.0-1.0); PLATELET ESTIMATE, MANUAL DECREASED (<130,000) (NORMAL); RBC MORPHOLOGY (MULTIPLE) NORMAL APPEARANCE (NORMAL)
[2019-07-04] MEDS ORDERED: DEXTROSE 10% 250 ML IV ONE ×2 (05:44→08:46)
[2019-07-04] MEDS: DEXTROSE 10% 250 ML IV STA ×3 (05:48→11:41)
[2019-07-04] MEDS: PANTOPRAZOLE 40 MG TABLET PO SCH (06:59)
[2019-07-04] MEDS: INSULIN ASPART 300 UNIT/3 ML PEN SUBQ SCH ×4 (08:45→21:33)
[2019-07-04] MEDS ORDERED: ALBUMIN 25% 12.5 GM/50 ML VIAL IV SCH (08:49)
[2019-07-04] MEDS: CEFEPIME 2 GM in SODIUM CHLORIDE 0.9% MINIBAG 100 ML IV SCH (08:53)
--- NOTE | 2019-07-04 08:53 | PROVIDER PROGRESS NOTE ---
Assessment/Plan - Problem List (1) Severe sepsis Assessment/Plan: The iv Levophed was stopped yesterday. She is getting D5 iv (due to low serum glu), but no saline. BP is low intermittently at 80-100 systolic, she is not lightheaded with this but is in bed. The BUN/creat have risen over the past 3 days, suggesting intravascular volume depletion. She has gotten iv Albumen the past 2 days and serum albumen improved from 1.0 to 1.1 today. The WBC has improved from 17 yesterday to 15 today, after iv antibx changed and antifungal added 2 days ago. The blood and new peritoneal fluid cx are neg to date, the new urine cx has grown Yeast. Continue iv antibx/antifungal. Change iv to D5NS. Decrease the ascites removal to qod, to decrease the hydrostatic gradient of fluid movement from intravascular to peritoneum. Give iv Albumen again today (3rd day). Add Midodrine for improved BP. Remain in ICU today. (2) UTI (urinary tract infection) Assessment/Plan: Continue iv Diflucan Will stop the other empiric iv antibx since no bacteria are growing in urine or blood now (3) Urinary retention Assessment/Plan: Remain with no Ocampo, which is what she prefers too (4) DM type 1 (diabetes mellitus, type 1) Assessment/Plan: Glu was very low this a.m. Will continue the iv glu Will decrease evening Lantus dose Remain on cc diet plus ss Insulin (5) Colon cancer metastasized to liver Assessment/Plan: CEA resulted and the discussion with her palliative care provider is postpones (Cathy Osei NP had a family emergency today, will be back tomorrow) (6) Malignant ascites Assessment/Plan: Will decrease drainage from daily to qod (7) Severe protein-calorie malnutrition Assessment/Plan: Appetite better last 3 days (8) Anemia Assessment/Plan: Stable (9) Thrombocytopenia Assessment/Plan: Stable, improving (10) History of anxiety Assessment/Plan: On her home meds and is stable (11) Chronic pain due to neoplasm Assessment/Plan: On her home meds and is stable (12) Physical deconditioning Assessment/Plan: PT may restart today, now that Levophed off She will need PT rehab at a SNF or home, after DCh, due to severe deconditioning from this hospital stay (13) Bacteremia due to Streptococcus pneumoniae Assessment/Plan: Resolved (14) Pneumonia Assessment/Plan: Tx finished - Current Meds Current Meds: Current Medications Generic Name Dose Route Start Last Admin Trade Name Freq PRN Reason Stop Dose Admin Chlorhexidine Gluconate 15 ml 06/21/19 23:00 07/03/19 21:13 Peridex PO 15 ml BID AIRAM Administration Fentanyl 1 patch 06/19/19 11:00 07/01/19 10:36 Duragesic TOP 1 patch Q72H AIRAM Administration Fentanyl 1 patch 06/19/19 11:00 07/01/19 10:36 Duragesic TOP 1 patch Q72H AIRAM Administration Guaifenesin/Codeine Phosphate 5 ml 06/20/19 19:54 06/21/19 03:50 Robitussin Ac PO 5 ml Q6HR PRN Administration Cough Heparin Sodium (Beef Lung) 30 - 50 unit 06/27/19 13:36 07/02/19 12:36 IVP 50 unit PRN PRN Administration Central Line Protocol (<24 hr) Heparin Sodium (Porcine) 5,000 unit 07/01/19 21:00 07/03/19 21:26 SUBQ 5,000 unit BID AIRAM Administration Cefepime HCl 2 gm/ Sodium 100 mls @ 200 mls/hr 07/02/19 00:01 07/03/19 21:43 Chloride IV Infused BID AIRAM Infusion Dextrose/Sodium Chloride 1,000 mls @ 83.333 mls/hr 07/01/19 22:00 07/04/19 01:52 D5ns IV 83.333 mls/hr .Q12H AIRAM Administration Sodium Chloride 500 mls @ 0 mls/hr 07/01/19 21:36 07/03/19 10:58 Normal Saline 0.9% IV 0 mls/hr Q24H PRN Infusion TKO RATE TKO Fluconazole 50 mls @ 100 mls/hr 07/02/19 09:00 07/03/19 10:55 Diflucan 200 Mg/100 Ml IV Infused DAILY AIRAM Infusion Vancomycin HCl 1 gm/ Sodium 250 mls @ 166.667 mls/hr 07/04/19 03:00 07/04/19 04:30 Chloride IV Infused Q24H AIRAM Infusion Insulin Aspart 3 - 11 unit 06/27/19 17:00 07/03/19 21:13 Novolog SUBQ Not Given 0800,1200,1700,2100 [facility] Protocol Mineral Oil 1 applic 06/19/19 19:23 07/03/19 21:28 Cavilon TOP 1 applic PRN PRN Administration Skin Care Mirtazapine 15 mg 06/27/19 21:00 07/03/19 21:12 Remeron PO 15 mg QPM AIRAM Administration Multi-Ingredient Ointment 1 applic 06/24/19 17:27 07/03/19 21:28 Zinc Oxide TOP 1 applic PRN PRN Administration Skin Care Ondansetron HCl 4 mg 06/18/19 19:26 07/02/19 11:16 Zofran Inj IVP 4 mg Q6HR PRN Administration Nausea / Vomiting Oxycodone HCl 10 mg 06/27/19 19:31 07/04/19 05:05 Roxicodone PO 10 mg Q4HR PRN Administration PAIN Pantoprazole Sodium 40 mg 06/30/19 08:00 07/04/19 06:59 Protonix PO 40 mg QDAC AIRAM Administration Prochlorperazine Edisylate 10 mg 07/02/19 14:01 07/04/19 02:58 Compazine Inj IVP 10 mg Q4HR PRN Administration Nausea / Vomiting Sodium Chloride 10 ml 06/19/19 01:00 07/04/19 01:53 Normal Saline Flush 0.9% IVP 10 ml 0100,0900,1700 AIRAM Administration Sodium Chloride 10 ml 06/18/19 19:26 07/03/19 12:54 Normal Saline Flush 0.9% IVP 10 ml PRN PRN Administration NEEDED PER PROVIDER ORDERS Sodium Chloride 20 ml 06/20/19 20:42 06/30/19 06:21 Normal Saline Flush 0.9% IVP 20 ml PRN PRN Administration After Blood Draw - Lab Result Fish Bone Diagrams: 07/05/19 05:05 07/05/19 05:05 - Additional Planning My Orders: My Active Orders 07/04/19 08:47 Miscellaenous Nursing Order [RC] DAILY 07/04/19 08:49 Albumin 25% @ 50 mls/hr x 1 Albumin 25% [Albuminar-25] 12.5 gm in 50 ml IV ONCE 07/04/19 12:00 Midodrine 2.5 mg PO TIDWM 07/04/19 21:00 Insulin Glargine [Lantus Solostar] 15 unit SUBQ QPM 07/05/19 05:00 ALBUMIN [CHEM] DAILYLAB Subjective - Subjective Patient Reports: Feeling Better, Resting Comfortably Objective Vital Signs: Vital Signs - 24 hr 07/03/19 07/03/19 07/03/19 09:00 10:00 12:00 Temperature 36.3 C L Heart Rate [ 118 H 120 H 118 H Monitoring electrodes] Respiratory 12 11 L 19 Rate Blood Pressure 91/67 87/61 L 103/65 [Right Brachial artery] O2 Saturation 100 99 100 07/03/19 07/03/19 07/03/19 12:57 14:00 15:00 Temperature Heart Rate [ 121 H 118 H 121 H Monitoring electrodes] Respiratory 12 12 16 Rate Blood Pressure 103/65 101/75 104/78 [Right Brachial artery] O2 Saturation 100 99 100 07/03/19 07/03/19 07/03/19 15:15 15:22 15:25 Temperature Heart Rate [ 122 H Monitoring electrodes] Respiratory Rate Blood Pressure 106/82 H 96/71 99/71 [Right Brachial artery] O2 Saturation 07/03/19 07/03/19 07/03/19 15:30 15:45 16:00 Temperature Heart Rate [ 117 H Monitoring electrodes] Respiratory 11 L Rate Blood Pressure 104/76 90/68 87/64 L [Right Brachial artery] O2 Saturation 99 07/03/19 07/03/19 07/03/19 16:26 16:55 17:00 Temperature 36.6 C Heart Rate [ 120 H 129 H Monitoring electrodes] Respiratory 12 Rate Blood Pressure 93/65 95/68 101/64 [Right Brachial artery] O2 Saturation 100 07/03/19 07/03/19 07/03/19 18:00 18:18 18:21 Temperature Heart Rate [ 121 H Monitoring electrodes] Respiratory 12 Rate Blood Pressure 77/52 L 89/59 L 76/52 L [Right Brachial artery] O2 Saturation 100 07/03/19 07/03/19 07/03/19 18:30 19:00 20:00 Temperature Heart Rate [ 115 H 117 H Monitoring electrodes] Respiratory 10 L 17 Rate Blood Pressure 76/52 L 84/49 L 88/56 L [Right Brachial artery] O2 Saturation 100 100 1107/03/19 07/03/19 21:00 22:00 23:00 Temperature Heart Rate [ 116 H 116 H 126 H Monitoring electrodes] Respiratory 11 L 10 L 14 Rate Blood Pressure 88/55 L 92/59 L 94/57 L [Right Brachial artery] O2 Saturation 100 100 98 07/04/19 07/04/19 07/04/19 00:00 01:00 02:00 Temperature 36.7 C Heart Rate [ 121 H 123 H 122 H Monitoring electrodes] Respiratory 16 21 17 Rate Blood Pressure 88/69 L 98/68 86/61 L [Right Brachial artery] O2 Saturation 98 100 100 07/04/19 07/04/19 07/04/19 03:00 04:00 05:00 Temperature 36.8 C Heart Rate [ 131 H 125 H 124 H Monitoring electrodes] Respiratory 19 19 21 Rate Blood Pressure 82/60 L 92/61 [Right Brachial artery] O2 Saturation 100 100 98 07/04/19 07/04/19 07/04/19 06:00 07:00 08:00 Temperature 35.5 C L Heart Rate [ 124 H 122 H 128 H Monitoring electrodes] Respiratory 23 13 12 Rate Blood Pressure 71/56 L 79/62 L 83/60 L [Right Brachial artery] O2 Saturation 100 99 98 Oxygen O2 Source Room air I&O (Last 24 Hrs): Intake and Output Totals x24h 07/02/19 07/03/19 07/04/19 23:59 23:59 23:59 Intake Total 3119.738 3511.885 1591.113 Output Total 2858 1830 700 Balance 242.210 0436.885 891.113 General: No acute distress, Other (sleeping without moaning) HEENT: Atraumatic, Mucous membr. moist/pink (temporal wasting) Neck: Supple Neuro: Non Focal Cardiovascular: Regular rate, Other (tachy at 120) Respiratory: No respiratory distress Abdomen: Soft, Other (colostomy and petritoneal tube present) Extremities: No edema - Results Results: Laboratory Results WBC 15.5 x10^3/uL (4.8-10.8) H 07/04/19 04:20 RBC 3.21 10^6/uL (4.20-5.40) L 07/04/19 04:20 Hgb 9.4 g/dL (12.0-16.0) L 07/04/19 04:20 Hct 30.7 % (37.0-47.0) L 07/04/19 04:20 MCV 95.6 fL (81.0-99.0) 07/04/19 04:20 MCH 29.3 pg (27.0-31.0) 07/04/19 04:20 MCHC 30.6 g/dL (32.0-36.0) L 07/04/19 04:20 RDW 18.6 % (12.0-15.0) H 07/04/19 04:20 Plt Count 79 10^3/uL (130-450) L 07/04/19 04:20 MPV 9.9 fL (7.9-10.8) 07/04/19 04:20 Neut # (Auto) Not Reportable 07/04/19 04:20 Lymph # (Auto) Not Reportable 07/04/19 04:20 Cloud # (Auto) Not Reportable 07/04/19 04:20 Eos # (Auto) Not Reportable 07/04/19 04:20 Baso # (Auto) Not Reportable 07/04/19 04:20 Absolute Nucleated RBC Not Reportable 07/04/19 04:20 Total Counted 100 07/04/19 04:20 Band Neuts % (Manual) 6 % (0-10) 07/04/19 04:20 Abnorm Lymph % (Manual) 0 % 07/04/19 04:20 Metamyelocytes % 2 % (-0) H 06/21/19 06:08 Myelocytes % 2 % (-0) H 06/21/19 06:08 Nucleated RBC % Not Reportable 07/04/19 04:20 Neutrophils # (Manual) 13.0 10^3/uL (1.5-6.6) H 07/04/19 04:20 Lymphocytes # (Manual) 0.9 10^3/uL (1.5-3.5) L 07/04/19 04:20 Monocytes # (Manual) 1.6 10^3/uL (0.0-1.0) H 07/04/19 04:20 Eosinophils # (Manual) 0.0 10^3/uL (0-0.7) 07/04/19 04:20 Basophils # (Manual) 0.0 10^3/uL (0-0.1) 07/04/19 04:20 Differential Comment MANUAL DIFFERENTIAL 07/04/19 04:20 Manual Slide Review Indicated 07/03/19 04:12 WBC Morphology NORMAL APPEARANCE (NORMAL) 07/02/19 04:35 Platelet Estimate DECREASED (<130,000) (NORMAL) 07/04/19 04:20 Platelet Morphology NORMAL APPEARANCE (NORMAL) 07/02/19 04:35 RBC Morph Micro Appear 1+ ANISOCYTOSIS (NORMAL) 1+ DERRICK CELLS (NORMAL) 1+ MICROCYTOSIS (NORMAL) 1+ HYPOCHROMASIA (NORMAL) 1+ OVALOCYTES (NORMAL) 1+ SCHISTOCYTES (NORMAL) 06/20/19 16:58 RBC Morph Micro Appear 1+ ANISOCYTOSIS (NORMAL) 1+ DERRICK CELLS (NORMAL) 1+ MICROCYTOSIS (NORMAL) 1+ HYPOCHROMASIA (NORMAL) 1+ OVALOCYTES (NORMAL) 1+ SCHISTOCYTES (NORMAL) 06/20/19 16:58 RBC Morph Micro Appear 1+ ANISOCYTOSIS (NORMAL) 1+ DERRICK CELLS (NORMAL) 1+ MICROCYTOSIS (NORMAL) 1+ HYPOCHROMASIA (NORMAL) 1+ OVALOCYTES (NORMAL) 1+ SCHISTOCYTES (NORMAL) 06/20/19 16:58 RBC Morph Micro Appear 1+ ANISOCYTOSIS (NORMAL) 1+ HYPOCHROMASIA (NORMAL) 1+ OVALOCYTES (NORMAL) 06/21/19 06:08 RBC Morph Micro Appear 1+ ANISOCYTOSIS (NORMAL) 1+ HYPOCHROMASIA (NORMAL) 1+ OVALOCYTES (NORMAL) 06/21/19 06:08 RBC Morph Micro Appear 1+ ANISOCYTOSIS (NORMAL) 1+ HYPOCHROMASIA (NORMAL) 1+ OVALOCYTES (NORMAL) 06/21/19 06:08 RBC Morph Micro Appear 1+ HYPOCHROMASIA (NORMAL) 06/22/19 04:42 RBC Morph Micro Appear 1+ ANISOCYTOSIS (NORMAL) 1+ HYPOCHROMASIA (NORMAL) 06/23/19 05:02 RBC Morph Micro Appear 1+ ANISOCYTOSIS (NORMAL) 1+ HYPOCHROMASIA (NORMAL) 06/23/19 05:02 RBC Morph Micro Appear 1+ POLYCHROMASIA (NORMAL) 1+ HYPOCHROMASIA (NORMAL) 1+ ANISOCYTOSIS (NORMAL) 06/24/19 07:17 RBC Morph Micro Appear 1+ POLYCHROMASIA (NORMAL) 1+ HYPOCHROMASIA (NORMAL) 1+ ANISOCYTOSIS (NORMAL) 06/24/19 07:17 RBC Morph Micro Appear 1+ POLYCHROMASIA (NORMAL) 1+ HYPOCHROMASIA (NORMAL) 1+ ANISOCYTOSIS (NORMAL) 06/24/19 07:17 RBC Morph Micro Appear 2+ ANISOCYTOSIS (NORMAL) 2+ POIKILOCYTOSIS (NORMAL) 07/01/19 17:30 RBC Morph Micro Appear 2+ ANISOCYTOSIS (NORMAL) 2+ POIKILOCYTOSIS (NORMAL) 07/01/19 17:30 RBC Morph Micro Appear 2+ ANISOCYTOSIS (NORMAL) 07/02/19 04:35 RBC Morph Micro Appear 3+ ANISOCYTOSIS (NORMAL) 07/03/19 04:12 RBC Morph Micro Appear NORMAL APPEARANCE (NORMAL) 07/04/19 04:20 PT 16.7 secs (9.9-12.6) H 06/27/19 04:40 INR 1.5 (0.8-1.2) H 06/27/19 04:40 Fibrinogen 575 mg/dL (220-496) H 06/19/19 18:47 Bld Gas Analysis Time 0506/19/19 05:15 Sample Site RIGHT RADIAL 06/19/19 05:15 ABG pH 7.41 (7.35-7.45) 06/19/19 05:15 ABG pCO2 31 mmHg (34-45) L 06/19/19 05:15 ABG pO2 72 mmHg (80-100) L 06/19/19 05:15 ABG HCO3 18.9 mmol/L (22.0-26.0) L 06/19/19 05:15 ABG Total CO2 19.9 MMOL/L (21.0-29.0) L 06/19/19 05:15 ABG O2 Saturation 94 % (94-98) 06/19/19 05:15 ABG Base Excess -5.0 mmol/L (-2.0-3.0) L 06/19/19 05:15 Ramón Test POSITIVE 06/19/19 05:15 VBG pH 7.374 (7.31-7.41) 06/26/19 04:20 VBG pCO2 25.5 mmHg (41-51) L 06/18/19 18:46 VBG pO2 35.5 mmHg (25-47) 06/18/19 18:46 VBG HCO3 11.7 mmol/L (23-28) L 06/18/19 18:46 VBG Total CO2 12.5 mmol/L (24-29) L 06/18/19 18:46 VBG O2 Saturation 56.2 % (60-80) L 06/18/19 18:46 VBG Base Excess -13.5 mmol/L (-2 - +2) L 06/18/19 18:46 Ionized Calcium 1.09 mmol/L (1.15-1.33) L 06/26/19 04:20 O2 Delivery Device OXYMASK 06/19/19 05:15 O2 Liters/Min 4.00 LPM 06/19/19 05:15 FiO2 0.36 06/19/19 05:15 Sodium 132 mmol/L (135-145) L 07/04/19 04:40 Potassium 3.9 mmol/L (3.5-5.0) 07/04/19 04:40 Chloride 111 mmol/L (101-111) 07/04/19 04:40 Carbon Dioxide 12 mmol/L (21-32) L* 07/04/19 04:40 Anion Gap 9.0 (6-13) 07/04/19 04:40 BUN 36 mg/dL (6-20) H 07/04/19 04:40 Creatinine 1.6 mg/dL (0.4-1.0) H 07/04/19 04:40 Estimated GFR (MDRD) 36 (>89) L 07/04/19 04:40 Glucose 49 mg/dL (70-100) L* 07/04/19 04:40 POC Whole Bld Glucose 58 mg/dL (70 - 100) L* 07/04/19 08:39 Glycated Hemoglobin 8.1 % (4.6-6.2) H 06/18/19 18:09 Estim Average Glucose 186 (70-100) H 06/18/19 18:09 Lactic Acid 2.0 mmol/L (0.5-2.2) 07/02/19 09:00 Calcium 7.1 mg/dL (8.5-10.3) L 07/04/19 04:40 Phosphorus 6.0 mg/dL (2.5-4.6) H 07/03/19 04:14 Magnesium 2.0 mg/dL (1.7-2.8) 07/03/19 04:14 Total Bilirubin 1.5 mg/dL (0.2-1.0) H 07/02/19 04:35 Direct Bilirubin 0.7 mg/dL (0.1-0.5) H 07/02/19 04:35 AST 27 IU/L (10-42) 07/02/19 04:35 ALT < 10 IU/L (10-60) L 07/02/19 04:35 Alkaline Phosphatase 529 IU/L (42-121) H 07/02/19 04:35 Total Creatine Kinase 105 IU/L (22-269) 06/18/19 18:09 Total Protein 5.0 g/dL (6.7-8.2) L 07/02/19 04:35 Albumin 1.1 g/dL (3.2-5.5) L 07/04/19 04:40 Globulin 4.2 g/dL (2.1-4.2) 07/02/19 04:35 Albumin/Globulin Ratio 0.3 (1.0-2.2) L 06/18/19 18:09 Lipase 15 U/L (22-51) L 06/18/19 18:09 Carcinoembryonic Ag 57.2 ng/mL 07/03/19 04:40 TSH 2.50 uIU/mL (0.34-5.60) 06/18/19 18:09 Urine Color DARK YELLOW 07/01/19 19:25 Urine Clarity CLOUDY (CLEAR) 07/01/19 19:25 Urine pH 5.0 PH (5.0-7.5) 07/01/19 19:25 Ur Specific Happy >=1.030 (1.002-1.030) H 07/01/19 19:25 Urine Protein 30 mg/dL (NEGATIVE) H 07/01/19 19:25 Urine Glucose (UA) NEGATIVE mg/dL (NEGATIVE) 07/01/19 19:25 Urine Ketones NEGATIVE mg/dL (NEGATIVE) 07/01/19 19:25 Urine Occult Blood LARGE (NEGATIVE) H 07/01/19 19:25 Urine Nitrite NEGATIVE (NEGATIVE) 07/01/19 19:25 Urine Bilirubin MODERATE (NEGATIVE) H 07/01/19 19:25 Urine Ictotest Cancelled 06/18/19 18:16 Urine Urobilinogen 0.2 (NORMAL) E.U./dL (NORMAL) 07/01/19 19:25 Ur Leukocyte Esterase SMALL (NEGATIVE) H 07/01/19 19:25 Urine RBC TNTC /HPF (0-5) H 07/01/19 19:25 Urine WBC 11-25 /HPF (0-5) H 07/01/19 19:25 Ur Squamous Epith Cells FEW Squamous (<= Few) 07/01/19 19:25 Amorphous Sediment Moderate /LPF 07/01/19 19:25 Urine Bacteria Moderate /HPF (None Seen) H 07/01/19 19:25 Urine Yeast PRESENT 07/01/19 19:25 Ur Microscopic Review NOT INDICATED 06/18/19 19:30 Urine Culture Comments INDICATED 07/01/19 19:25 Fluid Source PERITONEAL 06/25/19 13:45 Fluid Color YELLOW 06/25/19 13:45 Fluid Clarity CLEAR 06/25/19 13:45 Fluid WBC 526 /mm^3 06/25/19 13:45 Fluid RBC < 3000 /mm^3 06/25/19 13:45 Fluid Neutrophils % 89 % 06/25/19 13:45 Fluid Lymphocytes % 4 06/25/19 13:45 Fluid Monocytes % 7 % 06/25/19 13:45 Fld Mesothelial Cell % 1 % 06/19/19 18:45 Nasal Screen MRSA (PCR) NEGATIVE (NEGATIVE) 06/18/19 20:10 Last Dose Date 07/02/19 07/03/19 19:27 Last Dose Time 212407/03/19 19:27 Vancomycin Trough 25.7 ug/mL (10.0-20.0) H* 07/03/19 19:27 Random Vancomycin 16.9 ug/mL 06/21/19 06:08 Salicylates < 6.0 mg/dL 06/18/19 18:09 Urine Opiates Screen NEGATIVE (NEGATIVE) 06/18/19 18:16 Ur Oxycodone Screen POSITIVE (NEGATIVE) H 06/18/19 18:16 Urine Methadone Screen NEGATIVE (NEGATIVE) 06/18/19 18:16 Ur Propoxyphene Screen NEGATIVE (NEGATIVE) 06/18/19 18:16 Acetaminophen < 10 ug/mL (10-30) L 06/18/19 18:09 Ur Barbiturates Screen NEGATIVE (NEGATIVE) 06/18/19 18:16 Ur Tricyclics Screen NEGATIVE (NEGATIVE) 06/18/19 18:16 Ur Phencyclidine Scrn NEGATIVE (NEGATIVE) 06/18/19 18:16 Ur Amphetamine Screen NEGATIVE (NEGATIVE) 06/18/19 18:16 U Methamphetamines Scrn NEGATIVE (NEGATIVE) 06/18/19 18:16 U Benzodiazepines Scrn NEGATIVE (NEGATIVE) 06/18/19 18:16 Urine Cocaine Screen NEGATIVE (NEGATIVE) 06/18/19 18:16 U Cannabinoids Screen NEGATIVE (NEGATIVE) 06/18/19 18:16 Ethyl Alcohol < 5.0 mg/dL 06/18/19 18:09 Serum Ketones NEGATIVE (NEGATIVE) 06/19/19 18:36 Ref Lab Test Result REPORT 06/19/19 18:45 Ref Lab Test Result REPORT 06/25/19 13:45 Blood Type A NEGATIVE 06/24/19 08:05 Antibody Screen NEGATIVE 06/24/19 08:05 Crossmatch IS Only See Detail 06/24/19 08:05 Sepsis Event Note (H) - Evaluation Current Stage of Sepsis: Resolved Possible source of Sepsis: positive: Pulmonary - Sepsis Criteria Sepsis Criteria: Recorded Heart Rate greater than 90 bpm, Recorded Respiratory Rate greater than 20, Respiratory: Increasing oxygen requirements, WBC count greater than 12,000 or less than 4000, SBP drop more than 40mHg, MAP less than 65 mmHg, SBP less than 90 mmHg, Metabolic: lactate > 2 mmol/L, Hepatic: Bilirubin greater than 2mg/dl
[2019-07-04] MEDS: FLUCONAZOLE 200 MG/100 ML 50 ML IV SCH (09:40)
[2019-07-04] MEDS: CHLORHEXIDINE GLUCONATE 15 ML UDC PO SCH ×2 (09:44→21:29)
[2019-07-04] MEDS: HEPARIN 5,000 UNIT/ML VIAL SUBQ SCH ×2 (09:48→21:29)
[2019-07-04] MEDS: fentaNYL 25 MCG PATCH TOP SCH (11:08)
[2019-07-04] MEDS: fentaNYL 50 MCG PATCH TOP SCH (11:09)
--- NOTE | 2019-07-04 11:12 | PHARMACY PROGRESS NOTE ---
- Therapy Status Vancomycin regimen day #: 4 ((Day 1 of new dosing) 1G q24h - Previously 2G loading dose (07/01) followed by 1.25G x1 dose (07/02)) Therapy status: Trough supratherapeutic (07/03 dose held. Dose changed to 1G administered 09/03.) Basis for treatment: Empirical (Sepsis of suspected urinary origin. Previous Blood Pathogen was S. Pneumo sensitive to Vancomycin.) - SORAYA Risk Risk level for Acute Kidney Injury: High Acute Kidney Injury risk factors: Baseline CrCl <50, Baseline BUN:SCr >20:1, Goal trough >15, Admission to ICU (SORAYA prior to initiation of Vancomycin Loading dose.), Sepsis - Monitoring and Recommendation Clinical response to treatment: I&O Previous 24 hours 07/02/19 07/03/19 07/04/19 23:59 23:59 23:59 Intake Total 3119.738 3511.885 2421.113 Output Total 2858 1830 700 Balance 115.007 9828.885 1721.113 Lab Results 07/04/19 07/03/19 07/02/19 04:40 04:12 04:35 BUN 36 H 37 H 34 H Creatinine 1.6 H 1.6 H 1.5 H Estimated GFR (MDRD) 36 L 36 L 39 L 07/01/19 06/28/19 06/27/19 17:30 04:15 04:40 BUN 35 H 20 17 Creatinine 1.7 H 0.7 0.7 Estimated GFR (MDRD) 34 L 95 95 06/26/19 06/25/19 06/24/19 04:20 04:44 07:17 BUN 16 13 13 Creatinine 0.6 0.6 0.5 Estimated GFR (MDRD) 113 113 140 06/23/19 06/22/19 06/21/19 05:02 04:42 06:08 BUN 15 19 28 H Creatinine 0.7 0.7 0.7 Estimated GFR (MDRD) 95 95 95 06/20/19 06/19/19 06/19/19 04:40 04:40 01:15 BUN 37 H 59 H 65 H Creatinine 0.6 0.8 0.9 Estimated GFR (MDRD) 114 82 L 71 L 06/18/19 06/18/19 06/18/19 21:55 21:13 18:09 BUN 61 H 65 H 66 H Creatinine 1.1 H 1.2 H 1.3 H Estimated GFR (MDRD) 57 L 51 L 47 L Vancomycin Monitoring 07/03/19 06/21/19 06/20/19 19:27 06:08 08:22 Vancomycin Trough 25.7 H* 38.8 H* Random Vancomycin 16.9 Cultures 07/02/19 16:54 Ascities Fluid Body Fluid Culture - Preliminary 07/01/19 18:10 Blood Blood Culture - Preliminary NO GROWTH AFTER 2 DAYS 07/01/19 18:15 Blood Blood Culture - Preliminary NO GROWTH AFTER 2 DAYS 07/01/19 19:25 Urine,Clean Catch Urine Culture - Final YEAST 06/25/19 13:45 Peritoneal Fluid Anaerobic Culture - Final 06/25/19 13:45 Peritoneal Fluid Body Fluid Culture - Final 06/22/19 15:25 Blood Blood Culture - Final NO GROWTH AFTER 5 DAYS 06/20/19 16:58 Blood - Right Arm Blood Culture - Final NO GROWTH AFTER 5 DAYS 06/19/19 18:36 Blood - Right Arm Blood Culture - Final NO GROWTH AFTER 5 DAYS 06/19/19 18:42 Blood - Left Arm Blood Culture - Final NO GROWTH AFTER 5 DAYS 06/19/19 18:45 Peritoneal Fluid Body Fluid Culture - Final 06/18/19 19:12 Blood Blood Culture - Final Streptococcus Pneumoniae 06/18/19 18:46 Blood Blood Culture - Final Streptococcus Pneumoniae Monitoring plan: Daily serum creatinine, Draw trough early, Suggest ongoing fluid replacement Next trough due prior to maintenance dose #: 3 (prior to 3rd dose of new regimen) Next trough due (date/time): 07/06 @ 0630 Areas for additional monitoring: Therapy de-escalation based on culture results, Acute Kidney Injury, C. difficile infection risk reduction Pharmacy recommendation: Continue current regime (If patient declines, or fails to improve, consider yeast coverage per latest UA result.)
[2019-07-04] MEDS: MIDODRINE 2.5 MG TABLET PO SCH ×2 (11:59→17:41)
[2019-07-04] MEDS: MIRTAZAPINE 15 MG TABLET PO SCH (21:30)
[2019-07-04] MEDS: INSULIN GLARGINE 300 UNIT/3 ML PEN SUBQ SCH (21:30)
[2019-07-04] MEDS: ONDANSETRON 4 MG/2 ML VIAL IVP PRN (22:53)
[2019-07-05] MEDS: SODIUM CHLORIDE FLUSH 0.9% 10 ML SYRINGE IVP SCH ×3 (01:14→18:02)
[2019-07-05] MEDS: oxyCODONE 5 MG TABLET PO PRN ×4 (02:32→22:26)
[2019-07-05] MEDS: DEXTROSE 5%-0.9% NACL 1,000 ML IV SCH (02:34)
[2019-07-05 05:42] LABS: BASOPHILS # (AUTO) 0.1 10^3/uL (0.0-0.1); BASOPHILS % (AUTO) 0.4 %; EOSINOPHILS # (AUTO) 0.1 10^3/uL (0.0-0.7); EOSINOPHILS % (AUTO) 0.4 %; HGB - HEMOGLOBIN 8.8 g/dL (12.0-16.0); LYMPHOCYTES # (AUTO) 1.2 10^3/uL (1.5-3.5); LYMPHOCYTES % (AUTO) 6.9 %; MEAN CORPUSCULAR HEMOGLOBIN 29.7 pg (27.0-31.0); MEAN CORPUSCULAR VOLUME 95.9 fL (81.0-99.0); MEAN PLATELET VOLUME 11.3 fL (7.9-10.8); MONOCYTES # (AUTO) 1.5 10^3/uL (0.0-1.0); MONOCYTES % (AUTO) 8.6 %; NEUTROPHILS # (AUTO) 13.9 10^3/uL (1.5-6.6); NEUTROPHILS % (AUTO) 81.9 %; PLT - PLATELET COUNT 67 10^3/uL (130-450); RED BLOOD COUNT 2.96 10^6/uL (4.20-5.40); RED CELL DISTRIBUTION WIDTH 18.3 % (12.0-15.0); WHITE BLOOD COUNT 16.9 x10^3/uL (4.8-10.8)
[2019-07-05 05:50] LABS: ALBUMIN 1.1 g/dL (3.2-5.5); CALCIUM 7.3 mg/dL (8.5-10.3); CREATININE 1.8 mg/dL (0.4-1.0)
[2019-07-05] MEDS: PANTOPRAZOLE 40 MG TABLET PO SCH (06:41)
[2019-07-05] MEDS ORDERED: VANCOMYCIN INJ 1 GM in SODIUM CHLORIDE 0.9% 250 ML IV SCH (07:00)
[2019-07-05] MEDS ORDERED: SODIUM CHLORIDE 0.9% 500 ML IV ONE (08:03)
[2019-07-05] MEDS ORDERED: ALBUMIN 25% 12.5 GM/50 ML VIAL IV STA (08:04)
[2019-07-05] MEDS: INSULIN ASPART 300 UNIT/3 ML PEN SUBQ SCH ×4 (08:27→21:53)
[2019-07-05] MEDS: DEXTROSE 5%-0.45% NACL 1,000 ML IV SCH ×2 (09:05→21:50)
[2019-07-05] MEDS: FLUCONAZOLE 200 MG/100 ML 50 ML IV SCH (10:30)
[2019-07-05] MEDS: CHLORHEXIDINE GLUCONATE 15 ML UDC PO SCH ×2 (10:30→21:50)
[2019-07-05] MEDS: MIDODRINE 2.5 MG TABLET PO SCH ×3 (10:30→18:19)
[2019-07-05] MEDS: HEPARIN 5,000 UNIT/ML VIAL SUBQ SCH ×2 (10:31→21:57)
--- NOTE | 2019-07-05 16:20 | CONSULTATION NOTE ---
Palliative Care Follow Up - Referral Referring Provider: April Sandoval MD Time of Visit: [id number] Referral setting: Hospitalized patient Referral Reason: Met Colon CA with liver mets/Goals of care - Information Sources Records reviewed: Previous records reviewed History/Review of Systems obtained from: Caregiver Exam limitations: Clinical condition (patient appears confused; difficulty concentrating and lethargic) - History of Present Illness Update Brief HPI Update: This is an unfortunate 34-year-old woman with stage IV metastatic colon cancer to the liver, I peritoneal mets, and has been hospitalized since 06/18. She has had a complicated course who she presented with sepsis, DKA, and pneumonia. During her prolonged hospitalization, she was transitioned back from ICU to the floor, but unfortunately on 07/02 return to the ICU again with signs of sepsis related to a UTI, she was transitioned to the floor again last night. Patient has been fluctuating in her mental status, though has continued to struggle with her cognition in the context of being able to participate in decision-making, weighing benefits of burdens, as well as her underlying anxiety. She presents today is drifting easily off to sleep, not oriented to time or place, though does understand she is in the hospital. In an attempt to have conversation regarding her goals, particularly as she is continued to be quite weak, has not been able to make much progress with her functional status, and has remained bedbound. Patient is also not been eating today, and declined assistance with eating as well, she does appear quite frail, more cachectic, and her ascites is worsening significantly. With her low albumin, her progressing CEA, poor nutritional status, bedbound status, patient most likely has days to weeks and does not present with decision-making capacity today. Social History - Living Situation Living arrangement: At home Living Situation: With spouse/s.o., With family Support System: Her Ramón, has continue to try and work during this time, to build support the family. He is quite frustrated with Samantha's lack of progress, but also her ability to participate in any meaningful way and moving forward with any kind of plan or resolution regarding her ability to accept her terminal st atus. He does have 3 young children at home, he is getting help from his mother and other supportive friends and family. He is expressing just fatigue both emotionally and physically with the situation. Medications/Allergies - Medications Active Medication List: Active Medications Chlorhexidine Gluconate (Peridex) 15 ml PO BID [facility] Last Admin: 07/05/19 10:30 Dose: 15 ml Fentanyl (Duragesic) 1 patch TOP Q72H AIR[facility] Last Admin: 07/04/19 11:09 Dose: 1 patch Fentanyl (Duragesic) 1 patch TOP Q72H [facility] Last Admin: 07/04/19 11:08 Dose: 1 patch Guaifenesin/Codeine Phosphate (Robitussin Ac) 5 ml PO Q6HR PRN PRN Reason: Cough Last Admin: 06/21/19 03:50 Dose: 5 ml Heparin Sodium (Beef Lung) () 30 - 50 unit IVP PRN PRN PRN Reason: Central Line Protocol (<24 hr) Last Admin: 07/02/19 12:36 Dose: 50 unit Heparin Sodium (Porcine) () 5,000 unit SUBQ BID [facility] Last Admin: 07/05/19 10:31 Dose: 5,000 unit Sodium Chloride (Normal Saline 0.9%) 500 mls @ 0 mls/hr IV Q24H PRN PRN Reason: TKO RATE Last Infusion: 07/03/19 10:58 Dose: 0 mls/hr Fluconazole (Diflucan 200 Mg/100 Ml) 50 mls @ 100 mls/hr IV DAILY [facility] Last Infusion: 07/05/19 11:11 Dose: Infused Dextrose/Sodium Chloride (D5.45ns) 1,000 mls @ 83.333 mls/hr IV .Q12H [facility] Last Admin: 07/05/19 09:05 Dose: 83.333 mls/hr Insulin Aspart (Novolog) 3 - 11 unit SUBQ 0800,1200,1700,2100 [facility]; Protocol Last Admin: 07/05/19 12:22 Dose: 3 unit Insulin Glargine (Lantus Solostar) 15 unit SUBQ QPM [facility] Last Admin: 07/04/19 21:30 Dose: 15 unit Midodrine () 2.5 mg PO TIDWM [facility] Last Admin: 07/05/19 12:25 Dose: 2.5 mg Mineral Oil (Cavilon) 1 applic TOP PRN PRN PRN Reason: Skin Care Last Admin: 07/03/19 21:28 Dose: 1 applic Mirtazapine (Remeron) 15 mg PO QPM [facility] Last Admin: 07/04/19 21:30 Dose: 15 mg Multi-Ingredient Ointment (Zinc Oxide) 1 applic TOP PRN PRN PRN Reason: Skin Care Last Admin: 07/03/19 21:28 Dose: 1 applic Ondansetron HCl (Zofran Inj) 4 mg IVP Q6HR PRN PRN Reason: Nausea / Vomiting Last Admin: 07/04/19 22:53 Dose: 4 mg Oxycodone HCl (Roxicodone) 10 mg PO Q4HR PRN PRN Reason: PAIN Last Admin: 07/05/19 06:41 Dose: 10 mg Pantoprazole Sodium (Protonix) 40 mg PO QDAC [facility] Last Admin: 07/05/19 06:41 Dose: 40 mg Prochlorperazine Edisylate (Compazine Inj) 10 mg IVP Q4HR PRN PRN Reason: Nausea / Vomiting Last Admin: 07/04/19 02:58 Dose: 10 mg Sodium Chloride (Normal Saline Flush 0.9%) 10 ml IVP 0100,0900,1700 [facility] Last Admin: 07/05/19 12:23 Dose: 10 ml Sodium Chloride (Normal Saline Flush 0.9%) 10 ml IVP PRN PRN PRN Reason: NEEDED PER PROVIDER ORDERS Last Admin: 07/03/19 12:54 Dose: 10 ml Sodium Chloride (Normal Saline Flush 0.9%) 20 ml IVP PRN PRN PRN Reason: After Blood Draw Last Admin: 06/30/19 06:21 Dose: 20 ml Insulin Glargine,Hum.rec.anlog [Lantus] 30 - 40 unit SQ QDBREAKFAST 02/13/16 Docusate Sodium 200 mg PO BID 06/27/18 Insulin Aspart [NovoLOG] 0 units SUBQ TID PRN MDD sliding scale 06/27/18 clonazePAM [Clonazepam] 0.5 mg PO TID PRN 06/27/18 Ondansetron [Zuplenz] 8 mg PO Q8HR PRN 11/02/18 Polyethylene Glycol 3350 [Miralax] 17 mg PO DAILY PRN 01/03/19 Prochlorperazine Maleate [Compazine] 10 mg PO Q6HR PRN 01/03/19 Potassium Chloride 20 meq PO BID 03/19/19 Insulin Glargine [Lantus Solostar] 20 units SQ QPM 03/21/19 Loperamide [Imodium] 2 mg PO PRN PRN MDD 8/tabs 04/25/19 Oxycodone HCl 10 mg PO Q3HR PRN MDD 8/24 hours 04/25/19 fentaNYL [Fentanyl 75mcg patch] 75 mcg TOP Q72H 04/25/19 - Allergies Allergies/Adverse Reactions: Allergies Allergy/AdvReac Type Severity Reaction Status Date / Time No Known Drug Allergies Allergy Verified 06/18/19 16:43 Review of Systems - Constitutional Constitutional: reports: Fatigue, Poor appetite, Other (noted increased temporal and upper extremity wasting) - Ears, Nose & Throat Ears, Nose & Throat: reports: Dry mouth - Cardiovascular Cardiovascular: reports: Edema - Respiratory Respiratory: reports: SOB at rest - Gastrointestinal Gastrointestinal: reports: Abdominal distention, Nausea (intermittent), Poor appetite, Other (colostomy) - Musculoskeletal Musculoskeletal: reports: Stiffness, Limited range of motion, Other (severely weak) - Neurological Neurological: reports: Memory problems, Other (bedbound) - Psychiatric Psychiatric: reports: Depression, Anxiety - Endocrine Endocrine: reports: Other (diabetes type I) - Hematologic/Lymphatic Hematologic/Lymphatic: reports: Recurrent infections - All Other Systems All Other Systems: reports: Other (limited ROS patient unable to recall symptoms hx) Physical Exam - Vital Signs Vital Signs: Vital Signs x48h Temp Pulse Resp BP Pulse Ox 07/05/19 11:00 36.2 C L 113 H 20 90/54 L 96 - Physical Exam General Appearance: positive: Mild distress, Anxious, Lethargic Eyes Bilateral: positive: Other (difficulty focusing) ENT: positive: Dry mucous membranes Neck: positive: Trachea midline Cardiovascular: positive: Tachycardia Respiratory: negative: No respiratory distress (patient with severe ascites; presents with effort to breath) Abdomen: positive: Distended, Taut, Other (has severely increased in size despite regular draining) Skin: positive: Pressure wound Extremities: positive: Pedal edema (pedal edema up into sacral area; taut) Neurologic/Psychiatric: positive: Disoriented to time, Weakness, Slurred/abnml speech, Depressed mood/affect, Flat affect Palliative Care - POLST Patient has POLST: No POLST Status: DNR Pain: Pain unchanged, Comment (currently on duragesic 75 mcg; with only occasional oxycodone for BTP; patient unable to describe or participate in conversation regarding pain; points to abdomen when talking about how miserable she is) Tiredness/Fatigue: Severe (7-10) Drowsiness/Sedation: Severe (7-10) Nausea: Moderate (4-6) Anorexia: Severe (7-10) Dyspnea: Moderate (4-6) Feelings of wellbeing/Perceived Quality of Life: Poor, Worsening Performance Status: Patient has been unable to participate in PT, either regarding her condition and/or her refusal or non-cooperativeness. Patient is quite weak, is maximum assist for bed mobility. Does need some assistance with feeding depending on her fluctuating alertness. Patient has been bedbound since her admit on 5. Her lower extremity edema presents also as a huge barrier for any kind of bed mobility. - Palliative Care Discussion: Patient has continued to deteriorate, and attempt to engage her in a goals of care conversation was quite complicated as she does drift in and out. Did reapproach several times, about if she wanted to go home, what that would be like, that she would need assistance and help as well as equipment, and my concerned that she would not be able to take care of herself. She did admit to "I probably cannot go home" when we were talking about placement versus going home. Reassured in response to her worry that she is not doing something, that her body is quite weak, as well as having the cancer, that we just want her to be comfortable and have the care she needs. She does not present with any awareness of her situation, she is unable to tell me her understanding of her illness, and often turns head away when more emotional questions are approached. I did tell Samantha, that I was going to talk to Ramón about making the decisions about the "what next" regarding that we need to move on with a plan for her ca re. She did say that was okay to do. Ramón is at work, had an extensive conversation with him on the phone regarding patient's ongoing decline. The fact that [facility] had declined her for rehab, but were willing to have a conversation if she were going to focus on comfort measures. We did discuss at this point in time she is no longer a rehab candidate, she has had ongoing deterioration despite treating the infections, her body is wearing out. Acknowledges this and verbalizes understanding. We did discuss as far as directions to go, Mariann would be willing to consider for comfort measures if that was the goal, he would like further clarification though if his insurance as he is not Medicare, would pay for this. I had early on reached out to the hospice unit at [place], we could revisit this in the context of her ongoing rapid decline, I did call [facility], they are not currently taking patients. He is quite clear if he takes her home, he will need hospice support, which would include all the equipment in place, and probably a warm handoff and they are not available until mid to late next week, he is worried though about having Samantha at home though he wants the kids to see her, as bad as she is and now confused worried about the effect it will have on them. Results - Lab Results Fish Bones: 07/05/19 05:05 07/05/19 05:05 Lab and Imaging Results: Lab Results x24hrs 07/05/19 07/05/19 07/05/19 Range/Units 11:47 07:40 05:05 WBC (4.8-10.8) x10^3/uL RBC (4.20-5.40) 10^6/uL Hgb (12.0-16.0) g/dL Hct (37.0-47.0) % MCV (81.0-99.0) fL MCH (27.0-31.0) pg MCHC (32.0-36.0) g/dL RDW (12.0-15.0) % Plt Count (130-450) 10^3/uL MPV (7.9-10.8) fL Neut # (Auto) (1.5-6.6) 10^3/uL Lymph # (Auto) (1.5-3.5) 10^3/uL Elk # (Auto) (0.0-1.0) 10^3/uL Eos # (Auto) (0.0-0.7) 10^3/uL Baso # (Auto) (0.0-0.1) 10^3/uL Absolute Nucleated RBC x10^3/uL Nucleated RBC % /100WBC Sodium 130 L (135-145) mmol/L Potassium 4.2 (3.5-5.0) mmol/L Chloride 112 H (101-111) mmol/L Carbon Dioxide 10 L* (21-32) mmol/L Anion Gap 8.0 (6-13) BUN 37 H (6-20) mg/dL Creatinine 1.8 H (0.4-1.0) mg/dL Estimated GFR (MDRD) 32 L (>89) Glucose 198 H (70-100) mg/dL POC Whole Bld Glucose 159 H 202 H (70 - 100) mg/dL Calcium 7.3 L (8.5-10.3) mg/dL Albumin 1.1 L (3.2-5.5) g/dL 07/05/19 07/04/19 07/04/19 Range/Units 05:05 21:32 16:34 WBC 16.9 H (4.8-10.8) x10^3/uL RBC 2.96 L (4.20-5.40) 10^6/uL Hgb 8.8 L (12.0-16.0) g/dL Hct 28.4 L (37.0-47.0) % MCV 95.9 (81.0-99.0) fL MCH 29.7 (27.0-31.0) pg MCHC 31.0 L (32.0-36.0) g/dL RDW 18.3 H (12.0-15.0) % Plt Count 67 L (130-450) 10^3/uL MPV 11.3 H (7.9-10.8) fL Neut # (Auto) 13.9 H (1.5-6.6) 10^3/uL Lymph # (Auto) 1.2 L (1.5-3.5) 10^3/uL Elk # (Auto) 1.5 H (0.0-1.0) 10^3/uL Eos # (Auto) 0.1 (0.0-0.7) 10^3/uL Baso # (Auto) 0.1 (0.0-0.1) 10^3/uL Absolute Nucleated RBC 0.00 x10^3/uL Nucleated RBC % 0.0 /100WBC Sodium (135-145) mmol/L Potassium (3.5-5.0) mmol/L Chloride (101-111) mmol/L Carbon Dioxide (21-32) mmol/L Anion Gap (6-13) BUN (6-20) mg/dL Creatinine (0.4-1.0) mg/dL Estimated GFR (MDRD) (>89) Glucose (70-100) mg/dL POC Whole Bld Glucose 134 H 96 (70 - 100) mg/dL Calcium (8.5-10.3) mg/dL Albumin (3.2-5.5) g/dL Impression and Recommendations - Palliative Care Impression: This is a 34-year-old woman with stage IV metastatic colon cancer to liver, with prolonged hospitalization, now recovering from 2 rounds of sepsis, with poor n utritional support, increasing ascites, and increasing signs of organ failure. Patient does not present with decision-making capacity at today at this visit, has been will need to make decision for transition of care plans. Recommendations/Counseling Done: 1. Advanced care planning. Patient unable to participate in decision-making, she is much more lethargic and confused, would recommend ammonia level. This would just inform us of further issues around organ failure. Patient is bedbound, severe ascites, poor nutritional status, and bedbound status. Spoke at length with , regarding recommendations to transition to comfort/hospice care to better support patient and her decline. Coordination of care with hospitalist and discharge workforce planning analyst. Time Spent: 30 minutes was given 50% of this done and counseling and coordination of care regarding patient's ongoing decline and transition planning.
[2019-07-05] MEDS: ONDANSETRON 4 MG/2 ML VIAL IVP PRN (18:18)
[2019-07-05] MEDS: guaiFENesin/CODEINE 5 ML UDC PO PRN (21:51)
[2019-07-05] MEDS: MIRTAZAPINE 15 MG TABLET PO SCH (21:51)
[2019-07-05] MEDS: INSULIN GLARGINE 300 UNIT/3 ML PEN SUBQ SCH (21:54)
[2019-07-06] MEDS: SODIUM CHLORIDE FLUSH 0.9% 10 ML SYRINGE IVP SCH ×2 (01:05→08:49)
[2019-07-06] MEDS: oxyCODONE 5 MG TABLET PO PRN (02:40)
[2019-07-06] MEDS: PANTOPRAZOLE 40 MG TABLET PO SCH (06:27)
[2019-07-06 06:44] LABS: BASOPHILS # (AUTO) 0.1 10^3/uL (0.0-0.1); BASOPHILS % (AUTO) 0.3 %; EOSINOPHILS % (AUTO) 0.1 %; HGB - HEMOGLOBIN 8.9 g/dL (12.0-16.0); LYMPHOCYTES # (AUTO) 1.3 10^3/uL (1.5-3.5); LYMPHOCYTES % (AUTO) 7.5 %; MEAN CORPUSCULAR HEMOGLOBIN 30.1 pg (27.0-31.0); MEAN CORPUSCULAR HGB CONC 31.3 g/dL (32.0-36.0); MEAN CORPUSCULAR VOLUME 95.9 fL (81.0-99.0); MONOCYTES # (AUTO) 1.5 10^3/uL (0.0-1.0); MONOCYTES % (AUTO) 8.3 %; NEUTROPHILS # (AUTO) 14.4 10^3/uL (1.5-6.6); NEUTROPHILS % (AUTO) 81.9 %; PLT - PLATELET COUNT 68 10^3/uL (130-450); RED BLOOD COUNT 2.96 10^6/uL (4.20-5.40); RED CELL DISTRIBUTION WIDTH 18.2 % (12.0-15.0); WHITE BLOOD COUNT 17.5 x10^3/uL (4.8-10.8)
[2019-07-06 06:51] LABS: VANCOMYCIN,TROUGH 17.2 ug/mL (10.0-20.0)
[2019-07-06] MEDS ORDERED: LORazepam 2 MG/ML VIAL IVP PRN (06:51)
[2019-07-06 06:59] LABS: CALCIUM 7.5 mg/dL (8.5-10.3); CREATININE 1.9 mg/dL (0.4-1.0)
[2019-07-06] MEDS ORDERED: DEXTROSE GEL 37.5 GM TUBE ONE (07:10)
[2019-07-06] MEDS ORDERED: DEXTROSE GEL 37.5 GM TUBE PO ONE (07:13)
[2019-07-06] MEDS ORDERED: DEXTROSE GEL 37.5 GM TUBE PO SCH (07:16)
[2019-07-06] MEDS ORDERED: DEXTROSE 10% 250 ML IV ONE (07:40)
[2019-07-06] MEDS ORDERED: SODIUM CHLORIDE FLUSH 0.9% 10 ML SYRINGE ONE (07:41)
[2019-07-06] MEDS ORDERED: DEXTROSE 10% 250 ML IV STA (07:52)
[2019-07-06] MEDS ORDERED: DEXTROSE 5%-LACTATED RINGERS 1,000 ML IV SCH (08:00)
--- NOTE | 2019-07-06 08:00 | PROVIDER PROGRESS NOTE ---
Assessment/Plan - Problem List (1) Severe sepsis Assessment/Plan: BP still poor, despite Midodrine and D5NS WBC elevated. Creat is worsening. The prognosis is poor, given her oliguria, and new obtundation today Palliative Care saw the patient, who could not make decisions, then spoke to who did request Hospice, which the Transitions RN called. The has not requested "Comfort Care" yet, possibly tomorrow (2) UTI (urinary tract infection) Assessment/Plan: On Diflucan for Yeast in urine cx, no bacteria grew (3) Urinary retention Assessment/Plan: prn str cath now (4) DM type 1 (diabetes mellitus, type 1) Assessment/Plan: Hypoglycemia in the morning. Will decrease evening Lantus dose (5) Colon cancer metastasized to liver Assessment/Plan: CEA very elevated and she would have needed chemo last week on maryam old schedukle. Palliative Care has informed the that she is terminal, and today he has requested Hospice transition (6) Malignant ascites Assessment/Plan: Draining off fluid q2d (7) Severe protein-calorie malnutrition Assessment/Plan: She had an improvement in appetite for the past 3 days, but is obtunded and not eating again today Albumen iv was administered for the past 3 days to improve low serum oncotic pressure (Alb was 1.0) There has been minimal improvement, prognosis is poor as such (8) Anemia Assessment/Plan: Stable (9) Thrombocytopenia Assessment/Plan: Improved after first episode of severe sepsis, earlier this admission (10) History of anxiety Assessment/Plan: Meds ordered (11) Chronic pain due to neoplasm Assessment/Plan: Meds ordered, pain control is good (12) Physical deconditioning Assessment/Plan: Severe deconditioning and when she was better, all she could do was stand for 10 sec. Now with 2nd sepsis episode, she has refused PT, saying she is too weak. Today, she is obtunded and cannot participate. Prognosis for recovery is poor. - Current Meds Current Meds: Current Medications Generic Name Dose Route Start Last Admin Trade Name Freq PRN Reason Stop Dose Admin Chlorhexidine Gluconate 15 ml 06/21/19 23:00 07/05/19 21:50 Peridex PO 15 ml BID AIRAM Administration Fentanyl 1 patch 06/19/19 11:00 07/04/19 11:09 Duragesic TOP 1 patch Q72H AIRAM Administration Fentanyl 1 patch 06/19/19 11:00 07/04/19 11:08 Duragesic TOP 1 patch Q72H AIRAM Administration Guaifenesin/Codeine Phosphate 5 ml 06/20/19 19:54 07/05/19 21:51 Robitussin Ac PO 5 ml Q6HR PRN Administration Cough Heparin Sodium (Beef Lung) 30 - 50 unit 06/27/19 13:36 07/06/19 06:28 IVP 50 unit PRN PRN Administration Central Line Protocol (<24 hr) Heparin Sodium (Porcine) 5,000 unit 07/01/19 21:00 07/05/19 21:57 SUBQ 5,000 unit BID AIRAM Administration Sodium Chloride 500 mls @ 0 mls/hr 07/01/19 21:36 07/03/19 10:58 Normal Saline 0.9% IV 0 mls/hr Q24H PRN Infusion TKO RATE TKO Fluconazole 50 mls @ 100 mls/hr 07/02/19 09:00 07/05/19 11:11 Diflucan 200 Mg/100 Ml IV Infused DAILY AIRAM Infusion Insulin Aspart 3 - 11 unit 06/27/19 17:00 07/05/19 21:53 Novolog SUBQ 3 unit 0800,1200,1700,2100 AIRAM Administration Protocol Midodrine 2.5 mg 07/04/19 12:00 07/05/19 18:19 PO 2.5 mg TIDWM AIRAM Administration Mineral Oil 1 applic 06/19/19 19:23 07/03/19 21:28 Cavilon TOP 1 applic PRN PRN Administration Skin Care Mirtazapine 15 mg 06/27/19 21:00 07/05/19 21:51 Remeron PO 15 mg QPM AIRAM Administration Multi-Ingredient Ointment 1 applic 06/24/19 17:27 07/03/19 21:28 Zinc Oxide TOP 1 applic PRN PRN Administration Skin Care Ondansetron HCl 4 mg 06/18/19 19:26 07/05/19 18:18 Zofran Inj IVP 4 mg Q6HR PRN Administration Nausea / Vomiting Oxycodone HCl 10 mg 06/27/19 19:31 07/06/19 02:40 Roxicodone PO 10 mg Q4HR PRN Administration PAIN Pantoprazole Sodium 40 mg 06/30/19 08:00 07/06/19 06:27 Protonix PO 40 mg QDAC AIRAM Administration Prochlorperazine Edisylate 10 mg 07/02/19 14:01 07/04/19 02:58 Compazine Inj IVP 10 mg Q4HR PRN Administration Nausea / Vomiting Sodium Chloride 10 ml 06/19/19 01:00 07/06/19 01:05 Normal Saline Flush 0.9% IVP 10 ml 0100,0900,1700 AIRAM Administration Sodium Chloride 10 ml 06/18/19 19:26 07/03/19 12:54 Normal Saline Flush 0.9% IVP 10 ml PRN PRN Administration NEEDED PER PROVIDER ORDERS Sodium Chloride 20 ml 06/20/19 20:42 06/30/19 06:21 Normal Saline Flush 0.9% IVP 20 ml PRN PRN Administration After Blood Draw - Lab Result Fish Bone Diagrams: 07/06/19 06:30 07/06/19 06:30 - Additional Planning My Orders: My Active Orders 07/06/19 07:16 Dextrose [Glutose] 37.5 gm PO ONCE 07/06/19 07:52 DEXTROSE 10% FOR HYPOGLYCEMIA Dextrose 10% [D10w] 250 ml IV ONCE 07/06/19 08:00 Dextrose 5%-Lactated Ringers [D5lr] 1,000 ml IV 40 mls/hr 07/06/19 21:00 Insulin Glargine [Lantus Solostar] 5 unit SUBQ QPM Subjective - Subjective Patient Reports: Other (Sleeping, not communicative) Nursing Reports: Other (Not eating) Objective Vital Signs: Vital Signs - 24 hr 07/05/19 07/05/19 07/05/19 11:00 19:00 20:00 Temperature 36.2 C L 36 C L 35.6 C L Heart Rate [ 113 H 111 H 116 H Brachial] Respiratory 20 18 18 Rate Blood Pressure [Left Brachial artery] Blood Pressure 90/54 L 89/47 L 91/54 L [Right Brachial artery] O2 Saturation 96 100 98 07/05/19 07/06/19 23:45 05:29 Temperature 35.9 C L 36.4 C L Heart Rate [ 112 H 96 Brachial] Respiratory 16 16 Rate Blood Pressure 85/46 L 86/52 L [Left Brachial artery] Blood Pressure [Right Brachial artery] O2 Saturation 94 99 Oxygen O2 Source Room air I&O (Last 24 Hrs): Intake and Output Totals x24h 07/04/19 07/05/19 07/06/19 23:59 23:59 23:59 Intake Total 5057.498 3309.995 320.832 Output Total 750 1510 0 Balance 4307.498 1799.995 320.832 General: Other (Lethargic, sleeping comfortably) HEENT: Mucous membr. moist/pink Neck: Supple Neuro: Other (Obtunded) Cardiovascular: Regular rate Respiratory: No respiratory distress Abdomen: Other (Clostomy and tubes present) Extremities: Other (Trace pedal and hand edema) - Results Results: Laboratory Results WBC 17.5 x10^3/uL (4.8-10.8) H 07/06/19 06:30 RBC 2.96 10^6/uL (4.20-5.40) L 07/06/19 06:30 Hgb 8.9 g/dL (12.0-16.0) L 07/06/19 06:30 Hct 28.4 % (37.0-47.0) L 07/06/19 06:30 MCV 95.9 fL (81.0-99.0) 07/06/19 06:30 MCH 30.1 pg (27.0-31.0) 07/06/19 06:30 MCHC 31.3 g/dL (32.0-36.0) L 07/06/19 06:30 RDW 18.2 % (12.0-15.0) H 07/06/19 06:30 Plt Count 68 10^3/uL (130-450) L 07/06/19 06:30 MPV 12.0 fL (7.9-10.8) H 07/06/19 06:30 Neut # (Auto) 14.4 10^3/uL (1.5-6.6) H 07/06/19 06:30 Lymph # (Auto) 1.3 10^3/uL (1.5-3.5) L 07/06/19 06:30 [place] # (Auto) 1.5 10^3/uL (0.0-1.0) H 07/06/19 06:30 Eos # (Auto) 0.0 10^3/uL (0.0-0.7) 07/06/19 06:30 Baso # (Auto) 0.1 10^3/uL (0.0-0.1) 07/06/19 06:30 Absolute Nucleated RBC 0.00 x10^3/uL 07/06/19 06:30 Total Counted 100 07/04/19 04:20 Band Neuts % (Manual) 6 % (0-10) 07/04/19 04:20 Abnorm Lymph % (Manual) 0 % 07/04/19 04:20 Metamyelocytes % 2 % (-0) H 06/21/19 06:08 Myelocytes % 2 % (-0) H 06/21/19 06:08 Neutrophils # (Manual) 13.0 10^3/uL (1.5-6.6) H 07/04/19 04:20 Nucleated RBC % 0.0 /100WBC 07/06/19 06:30 Lymphocytes # (Manual) 0.9 10^3/uL (1.5-3.5) L 07/04/19 04:20 Monocytes # (Manual) 1.6 10^3/uL (0.0-1.0) H 07/04/19 04:20 Eosinophils # (Manual) 0.0 10^3/uL (0-0.7) 07/04/19 04:20 Basophils # (Manual) 0.0 10^3/uL (0-0.1) 07/04/19 04:20 Differential Comment MANUAL DIFFERENTIAL 07/04/19 04:20 Manual Slide Review Indicated 07/03/19 04:12 WBC Morphology NORMAL APPEARANCE (NORMAL) 07/02/19 04:35 Platelet Estimate DECREASED (<130,000) (NORMAL) 07/04/19 04:20 Platelet Morphology NORMAL APPEARANCE (NORMAL) 07/02/19 04:35 RBC Morph Micro Appear 1+ ANISOCYTOSIS (NORMAL) 1+ DERRICK CELLS (NORMAL) 1+ MICROCYTOSIS (NORMAL) 1+ HYPOCHROMASIA (NORMAL) 1+ OVALOCYTES (NORMAL) 1+ SCHISTOCYTES (NORMAL) 06/20/19 16:58 RBC Morph Micro Appear 1+ ANISOCYTOSIS (NORMAL) 1+ DERRICK CELLS (NORMAL) 1+ MICROCYTOSIS (NORMAL) 1+ HYPOCHROMASIA (NORMAL) 1+ OVALOCYTES (NORMAL) 1+ SCHISTOCYTES (NORMAL) 06/20/19 16:58 RBC Morph Micro Appear 1+ ANISOCYTOSIS (NORMAL) 1+ DERRICK CELLS (NORMAL) 1+ MICROCYTOSIS (NORMAL) 1+ HYPOCHROMASIA (NORMAL) 1+ OVALOCYTES (NORMAL) 1+ SCHISTOCYTES (NORMAL) 06/20/19 16:58 RBC Morph Micro Appear 1+ ANISOCYTOSIS (NORMAL) 1+ HYPOCHROMASIA (NORMAL) 1+ OVALOCYTES (NORMAL) 06/21/19 06:08 RBC Morph Micro Appear 1+ ANISOCYTOSIS (NORMAL) 1+ HYPOCHROMASIA (NORMAL) 1+ OVALOCYTES (NORMAL) 06/21/19 06:08 RBC Morph Micro Appear 1+ ANISOCYTOSIS (NORMAL) 1+ HYPOCHROMASIA (NORMAL) 1+ OVALOCYTES (NORMAL) 06/21/19 06:08 RBC Morph Micro Appear 1+ HYPOCHROMASIA (NORMAL) 06/22/19 04:42 RBC Morph Micro Appear 1+ ANISOCYTOSIS (NORMAL) 1+ HYPOCHROMASIA (NORMAL) 06/23/19 05:02 RBC Morph Micro Appear 1+ ANISOCYTOSIS (NORMAL) 1+ HYPOCHROMASIA (NORMAL) 06/23/19 05:02 RBC Morph Micro Appear 1+ POLYCHROMASIA (NORMAL) 1+ HYPOCHROMASIA (NORMAL) 1+ ANISOCYTOSIS (NORMAL) 06/24/19 07:17 RBC Morph Micro Appear 1+ POLYCHROMASIA (NORMAL) 1+ HYPOCHROMASIA (NORMAL) 1+ ANISOCYTOSIS (NORMAL) 06/24/19 07:17 RBC Morph Micro Appear 1+ POLYCHROMASIA (NORMAL) 1+ HYPOCHROMASIA (NORMAL) 1+ ANISOCYTOSIS (NORMAL) 06/24/19 07:17 RBC Morph Micro Appear 2+ ANISOCYTOSIS (NORMAL) 2+ POIKILOCYTOSIS (NORMAL) 07/01/19 17:30 RBC Morph Micro Appear 2+ ANISOCYTOSIS (NORMAL) 2+ POIKILOCYTOSIS (NORMAL) 07/01/19 17:30 RBC Morph Micro Appear 2+ ANISOCYTOSIS (NORMAL) 07/02/19 04:35 RBC Morph Micro Appear 3+ ANISOCYTOSIS (NORMAL) 07/03/19 04:12 RBC Morph Micro Appear NORMAL APPEARANCE (NORMAL) 07/04/19 04:20 PT 16.7 secs (9.9-12.6) H 06/27/19 04:40 INR 1.5 (0.8-1.2) H 06/27/19 04:40 Fibrinogen 575 mg/dL (220-496) H 06/19/19 18:47 Bld Gas Analysis Time 52606/19/19 05:15 Sample Site RIGHT RADIAL 06/19/19 05:15 ABG pH 7.41 (7.35-7.45) 06/19/19 05:15 ABG pCO2 31 mmHg (34-45) L 06/19/19 05:15 ABG pO2 72 mmHg (80-100) L 06/19/19 05:15 ABG HCO3 18.9 mmol/L (22.0-26.0) L 06/19/19 05:15 ABG Total CO2 19.9 MMOL/L (21.0-29.0) L 06/19/19 05:15 ABG O2 Saturation 94 % (94-98) 06/19/19 05:15 ABG Base Excess -5.0 mmol/L (-2.0-3.0) L 06/19/19 05:15 Ramón Test POSITIVE 06/19/19 05:15 VBG pH 7.374 (7.31-7.41) 06/26/19 04:20 VBG pCO2 25.5 mmHg (41-51) L 06/18/19 18:46 VBG pO2 35.5 mmHg (25-47) 06/18/19 18:46 VBG HCO3 11.7 mmol/L (23-28) L 06/18/19 18:46 VBG Total CO2 12.5 mmol/L (24-29) L 06/18/19 18:46 VBG O2 Saturation 56.2 % (60-80) L 06/18/19 18:46 VBG Base Excess -13.5 mmol/L (-2 - +2) L 06/18/19 18:46 Ionized Calcium 1.09 mmol/L (1.15-1.33) L 06/26/19 04:20 O2 Delivery Device OXYMASK 06/19/19 05:15 O2 Liters/Min 4.00 LPM 06/19/19 05:15 FiO2 0.36 06/19/19 05:15 Sodium 133 mmol/L (135-145) L 07/06/19 06:30 Potassium 4.2 mmol/L (3.5-5.0) 07/06/19 06:30 Chloride 115 mmol/L (101-111) H 07/06/19 06:30 Carbon Dioxide 10 mmol/L (21-32) L* 07/06/19 06:30 Anion Gap 8.0 (6-13) 07/06/19 06:30 BUN 42 mg/dL (6-20) H 07/06/19 06:30 Creatinine 1.9 mg/dL (0.4-1.0) H 07/06/19 06:30 Estimated GFR (MDRD) 30 (>89) L 07/06/19 06:30 Glucose 63 mg/dL (70-100) L 07/06/19 06:30 POC Whole Bld Glucose 59 mg/dL (70 - 100) L* 07/06/19 07:35 Glycated Hemoglobin 8.1 % (4.6-6.2) H 06/18/19 18:09 Estim Average Glucose 186 (70-100) H 06/18/19 18:09 Lactic Acid 2.0 mmol/L (0.5-2.2) 07/02/19 09:00 Calcium 7.5 mg/dL (8.5-10.3) L 07/06/19 06:30 Phosphorus 6.0 mg/dL (2.5-4.6) H 07/03/19 04:14 Magnesium 2.0 mg/dL (1.7-2.8) 07/03/19 04:14 Total Bilirubin 1.5 mg/dL (0.2-1.0) H 07/02/19 04:35 Direct Bilirubin 0.7 mg/dL (0.1-0.5) H 07/02/19 04:35 AST 27 IU/L (10-42) 07/02/19 04:35 ALT < 10 IU/L (10-60) L 07/02/19 04:35 Alkaline Phosphatase 529 IU/L (42-121) H 07/02/19 04:35 Total Creatine Kinase 105 IU/L (22-269) 06/18/19 18:09 Total Protein 5.0 g/dL (6.7-8.2) L 07/02/19 04:35 Globulin 4.2 g/dL (2.1-4.2) 07/02/19 04:35 Albumin/Globulin Ratio 0.3 (1.0-2.2) L 06/18/19 18:09 Albumin 1.1 g/dL (3.2-5.5) L 07/05/19 05:05 Lipase 15 U/L (22-51) L 06/18/19 18:09 Carcinoembryonic Ag 57.2 ng/mL 07/03/19 04:40 TSH 2.50 uIU/mL (0.34-5.60) 06/18/19 18:09 Urine Color DARK YELLOW 07/01/19 19:25 Urine Clarity CLOUDY (CLEAR) 07/01/19 19:25 Urine pH 5.0 PH (5.0-7.5) 07/01/19 19:25 Ur Specific Russell >=1.030 (1.002-1.030) H 07/01/19 19:25 Urine Protein 30 mg/dL (NEGATIVE) H 07/01/19 19:25 Urine Glucose (UA) NEGATIVE mg/dL (NEGATIVE) 07/01/19 19:25 Urine Ketones NEGATIVE mg/dL (NEGATIVE) 07/01/19 19:25 Urine Occult Blood LARGE (NEGATIVE) H 07/01/19 19:25 Urine Nitrite NEGATIVE (NEGATIVE) 07/01/19 19:25 Urine Bilirubin MODERATE (NEGATIVE) H 07/01/19 19:25 Urine Ictotest Cancelled 06/18/19 18:16 Urine Urobilinogen 0.2 (NORMAL) E.U./dL (NORMAL) 07/01/19 19:25 Ur Leukocyte Esterase SMALL (NEGATIVE) H 07/01/19 19:25 Urine RBC TNTC /HPF (0-5) H 07/01/19 19:25 Urine WBC 11-25 /HPF (0-5) H 07/01/19 19:25 Ur Squamous Epith Cells FEW Squamous (<= Few) 07/01/19 19:25 Amorphous Sediment Moderate /LPF 07/01/19 19:25 Urine Bacteria Moderate /HPF (None Seen) H 07/01/19 19:25 Urine Yeast PRESENT 07/01/19 19:25 Ur Microscopic Review NOT INDICATED 06/18/19 19:30 Urine Culture Comments INDICATED 07/01/19 19:25 Fluid Source PERITONEAL 06/25/19 13:45 Fluid Color YELLOW 06/25/19 13:45 Fluid Clarity CLEAR 06/25/19 13:45 Fluid WBC 526 /mm^3 06/25/19 13:45 Fluid RBC < 3000 /mm^3 06/25/19 13:45 Fluid Neutrophils % 89 % 06/25/19 13:45 Fluid Lymphocytes % 4 06/25/19 13:45 Fluid Monocytes % 7 % 06/25/19 13:45 Fld Mesothelial Cell % 1 % 06/19/19 18:45 Nasal Screen MRSA (PCR) NEGATIVE (NEGATIVE) 06/18/19 20:10 Last Dose Date UNKNOWN 07/06/19 06:30 Last Dose Time UNKNOWN 07/06/19 06:30 Random Vancomycin 16.9 ug/mL 06/21/19 06:08 Vancomycin Trough 17.2 ug/mL (10.0-20.0) 07/06/19 06:30 Salicylates < 6.0 mg/dL 06/18/19 18:09 Urine Opiates Screen NEGATIVE (NEGATIVE) 06/18/19 18:16 Ur Oxycodone Screen POSITIVE (NEGATIVE) H 06/18/19 18:16 Urine Methadone Screen NEGATIVE (NEGATIVE) 06/18/19 18:16 Ur Propoxyphene Screen NEGATIVE (NEGATIVE) 06/18/19 18:16 Acetaminophen < 10 ug/mL (10-30) L 06/18/19 18:09 Ur Barbiturates Screen NEGATIVE (NEGATIVE) 06/18/19 18:16 Ur Tricyclics Screen NEGATIVE (NEGATIVE) 06/18/19 18:16 Ur Phencyclidine Scrn NEGATIVE (NEGATIVE) 06/18/19 18:16 Ur Amphetamine Screen NEGATIVE (NEGATIVE) 06/18/19 18:16 U Methamphetamines Scrn NEGATIVE (NEGATIVE) 06/18/19 18:16 U Benzodiazepines Scrn NEGATIVE (NEGATIVE) 06/18/19 18:16 Urine Cocaine Screen NEGATIVE (NEGATIVE) 06/18/19 18:16 U Cannabinoids Screen NEGATIVE (NEGATIVE) 06/18/19 18:16 Ethyl Alcohol < 5.0 mg/dL 06/18/19 18:09 Serum Ketones NEGATIVE (NEGATIVE) 06/19/19 18:36 Ref Lab Test Result REPORT 06/19/19 18:45 Ref Lab Test Result REPORT 06/25/19 13:45 Blood Type A NEGATIVE 06/24/19 08:05 Antibody Screen NEGATIVE 06/24/19 08:05 Crossmatch IS Only See Detail 06/24/19 08:05 Sepsis Event Note (H) - Evaluation Current Stage of Sepsis: Resolved Possible source of Sepsis: positive: Pulmonary - Sepsis Criteria Sepsis Criteria: Recorded Heart Rate greater than 90 bpm, Recorded Respiratory Rate greater than 20, Respiratory: Increasing oxygen requirements, WBC count greater than 12,000 or less than 4000, SBP drop more than 40mHg, MAP less than 65 mmHg, SBP less than 90 mmHg, Metabolic: lactate > 2 mmol/L, Hepatic: Bilirubin greater than 2mg/dl
[2019-07-06] MEDS: INSULIN ASPART 300 UNIT/3 ML PEN SUBQ SCH ×2 (08:29→11:50)
[2019-07-06] MEDS: MIDODRINE 2.5 MG TABLET PO SCH ×3 (08:48→11:54)
[2019-07-06] MEDS: CHLORHEXIDINE GLUCONATE 15 ML UDC PO SCH ×2 (08:48→08:53)
[2019-07-06 09:00] VITALS: BP 82/55
[2019-07-06] MEDS ORDERED: oxyCODONE 10 MG/0.5 ML SYRINGE PO PRN (09:04)
[2019-07-06] MEDS ORDERED: SCOPOLAMINE PATCH TOP SCH (09:04)
[2019-07-06] MEDS ORDERED: MORPHINE SOL 10 MG/0.5 ML SYRINGE PO PRN (09:06)
--- NOTE | 2019-07-06 09:58 | MISCELLANEOUS PROVIDER NOTE ---
Miscellaneous Provider Note - - Note: I was called to see patient at 0944: respirations have ceased and no heart sounds are audible, she was pronounced . I contacted the , who will be in.
[2019-07-06] MEDS: FLUCONAZOLE 200 MG/100 ML 50 ML IV SCH (10:33)
[2019-07-06] MEDS: HEPARIN 5,000 UNIT/ML VIAL SUBQ SCH (10:34)
--- NOTE | 2019-07-06 17:07 | DISCHARGE SUMMARY ---
<Colten Marlow - Last Filed: 07/16/19 07:59> Discharge Summary Primary Care Provider: Liam Reyes Discharge Disposition: 20 - DIAGNOSES Admission Diagnoses: (1) Sepsis (2) Pneumonia (3) DKA (diabetic ketoacidoses) (4) Colon carcinoma metastatic to liver (5) Malignant ascites Discharge Diagnoses with Status of Each Condition: See below - HPI History of Present Illness: From the admission H&P of Dr Angela Adams: Patient is a 33 y/o female who presented to the ED via EMS with altered mental status. This history is provided by her because the patient is currently unable to provide. Her reports that last night she appeared weak and tired but was able to communicate. She said she was not feeling well and wanted to be left alone. Her is currently a truck assembler and works 14 hour shifts. He left for work this morning but called on a friend to go check on the patient. The friend found her significantly altered and called EMS. Her explains that with her current diagnoses, she is usually in bed most of the time and always has nonspecific generalized pain. However 3 days ago she woke up and cooked for her family. They have 3 young children with the oldest one being 12 years of age. She has history of diabetes mellitus Type I. In the ED she was found to have a blood glucose of 466, anion gap of 20 and a bicarbonate level of 12. She also had a chest xray done which showed right middle lung opacities concerning for pneumonia. As a result she was presented for admission. 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 She sees Dr Luong (Oncologist) and is on FOLFOX chemotherapy. She was diagnosed last year at the age of 32. At the time she already had metastasis. It is reported that the patient was not a surgical candidate as determined by [facility] Tumor Board on 11/2018. However, the patient presently has a colostomy bag and a peritoneal drainage catheter. Her reports that she had been require frequent ([id number]) paracenteses before the peritoneal drainage was placed on Monday06/11/19. Over the past 1 week she has had about 8L of serous appearing fluid out. Over a 2 week span before this past week, she had 9L out. He reports that she was not febrile at home, did not have a cough and did not complain of one specific pain. At bedside, she is very ashen appearing, frail/cachectic with very dry oral mucosa. She still has very altered mental status. Though her eyes are open and she is moving around in bed, she does not directly respond to verbal or tactile stimuli. She mainly grunts/moans in discomfort. She is tachycardic, tachypneic and rhoncherous sounding. She received 3L of normal saline in the ED. However upon arriving to the ICU she was hypotensive with a SBP in the 80's. Serum glucose is 466, anion gap elevated at 20, and pH is 7.28 from VBG. She is being admitted for Septic shock, pneumonia and DKA. I advised the patient's that their children will need to start screening for colon cancer from the age of 24. Which would be 10 years earlier than when she was diagnosed with metastatic colon cancer. He expressed understanding of this. - ALLERGIES Allergies/Adverse Reactions: Allergies Allergy/AdvReac Type Severity Reaction Status Date / Time No Known Drug Allergies Allergy Verified 06/18/19 16:43 - MEDICATIONS Home Medications: Ambulatory Orders Medication Instructions Recorded Confirmed Insulin Glargine,Hum.rec.anlog 30 - 40 unit SQ QDBREAKFAST 02/13/16 06/19/19 [Lantus] Docusate Sodium 200 mg PO BID 06/27/18 06/19/19 Insulin Aspart [NovoLOG] 0 units SUBQ TID PRN MDD sliding 06/27/18 06/19/19 scale clonazePAM [Clonazepam] 0.5 mg PO TID PRN 06/27/18 06/19/19 Ondansetron [Zuplenz] 8 mg PO Q8HR PRN 11/02/18 06/19/19 Polyethylene Glycol 3350 [Miralax] 17 mg PO DAILY PRN 01/03/19 06/19/19 Prochlorperazine Maleate 10 mg PO Q6HR PRN 01/03/19 06/19/19 [Compazine] Potassium Chloride 20 meq PO BID 03/19/19 06/19/19 Insulin Glargine [Lantus Solostar] 20 units SQ QPM 03/21/19 06/19/19 Loperamide [Imodium] 2 mg PO PRN PRN MDD 8/tabs 04/25/19 06/19/19 Oxycodone HCl 10 mg PO Q3HR PRN MDD 8/24 hours 04/25/19 06/19/19 fentaNYL [Fentanyl 75mcg patch] 75 mcg TOP Q72H 04/25/19 06/19/19 - LABS Result Diagrams: 07/06/19 06:30 07/06/19 06:30 - SEPSIS Current Stage of Sepsis: Resolved Possible source of Sepsis: Pulmonary Sepsis Criteria: Recorded Heart Rate greater than 90 bpm, Recorded Respiratory Rate greater than 20, Respiratory: Increasing oxygen requirements, WBC count greater than 12,000 or less than 4000, SBP drop more than 40mHg, MAP less than 65 mmHg, SBP less than 90 mmHg, Metabolic: lactate > 2 mmol/L, Hepatic: Bilirubin greater than 2mg/dl <April Williamson - Last Filed: 07/19/19 17:52> Discharge Summary Admit Date: 06/18/19 Discharge Date: 07/06/19 Discharging Provider: Dr April Williamson - HOSPITAL COURSE Hospital Course: 1) DKA (diabetic ketoacidoses) She was admitted in DKA into the ICU, started on an Insulin drip on the DKA protocol. Her obtundation was felt to be related partly to DKA but was very slow to improve. (2) Pneumonia Her CXR showed a pneumonia and she was started on empiric iv Zithromax and iv Cetriaxone. After several days a CXR was done and showed worsening infiltrate on the R side. This was suspected to be an aspiration PNA, related to poor airway protection whenshe was obtunde. Her antibiotic regimen was broadened. She was making sputum, but was too weak to expectorate it. She could not swallow pills to add Mucinex, and was too weak to perform Acapella flutter valve for expectoration. She completed a course of antibiotics and the pulmonary status eventually improved. (3) Bacteremia due to Streptococcus pneumoniae Her first set of blood cultures were positive, drawn on day 1, and grew Strep pneumoniae. Following that, all her other blood cultures were negative. An Echo was done and did not show valvular vegetations. (4) Severe sepsis Her presentation was consistent with this: she had hypotension, tachycardia, elevated lactic acid, WBC and the pneumonia was the source. (5) UTI Later in her course, her WBC joey, and she was rechecked for infection. The U/A indicated a UTI and she was restarted on iv antibiotics, but the urine culture grew yeast. She was given a course of Diflucan therefore. (6) Urinary retention She had a Ocampo catheter placed at admission due to severe sepsis, which was removed after she was out of the ICU and after the UTI was treated. (7) DM type 1 (diabetes mellitus, type 1) She had presented in DKA, needed IV insulin, then was on an IV of D5 for many days to give her calories, while she was obtunded then even when awake and when she refused to eat. Eventually, we advanced her diet to solids when she developed an appetite in the last 4-5 days of her course, and continued Accu- Checks and Lantus plus sliding scale Regular insulin coverage. (8) Colon cancer metastasized to liver An abdomen CT was done on this admission in order for prognosticating. She was followed by Cathy Osei NP, who knew this patient well. There was no significant change from the last CT in findings of the cancer in her abdomen, and eventually a bleak prognosis was discussed. The patient did not want to bec ome a DNR. The allowed her to make the decision, but when the patient became unresponsive in the last several days of hospitalization, and Cathy Osei NP met with the , the patient was made a DNR. (9) Malignant ascites The hospital was able to obtain the specific Aspire equipment needed to drain her ascites of 1 to 1.5 L every day using the recently inserted peritoneal tube., which she got about 10 days prior to this admission. The plan had been for the to drain it at home daily, but the patient did not allow him to come near her and in the 10 days of having her peritoneal tube, it was only drained once, 5 days before this current admission. She has had considerable improvement in her pain, with daily removal of ascites fluid (10) Severe protein-calorie malnutrition In the week before this admission, the patient was only eating rice and noodles. When she was less obtunded here, she only asked for and drank orange juice and chocolate milk. consultant gave recommendations. Cathy Osei NP, saw the patient during the course and "told her she must eat" if she wanted to return home. It was only in the last few days, that the patient exhibited an appetite. (11) Anemia The did consent to transfusion earlier this admission. With her IV hydration, and thus hemodilution, her hemoglobin plateaued at 7.0 for most of her course. (12) Thrombocytopenia She has had a consistent drop in platelets since admission, got 1 units of platelets transfused at mid hospitalization. She never dropped platelet count below 10 therefore there was not a second order for platelet transfusions. She had only 1 day of visible bleeding in the colostomy bag on the second day of this hospitalization, no other signs of bleeding since then. (13) History of anxiety She was on prn anxiolytics. She was also quite vehement with her wishes for no visits from the children and was unable to make a ddecision regarding DNR status when advised by her Palliative Care provider. (14) Chronic pain due to neoplasm She has fair pain control with the prn pain meds, and was not over sedated. (15) Physical deconditioning There were a few attempts at working with PT, but she could only bear weight at the side of the bed for a few seconds. She was mostly bed-bound. (16) Hypotension She developed hypotension again later in her course, despite 4 days of iv Albumen and the continuous iv crystalloid infusions during this entire hospitalization. In her final 24 hours, she became comatose, and comfort measures were agreed to by her . She peacefully and was pronounced on the morning of 07/06/19. - LABS Result Diagrams: 07/06/19 06:30 07/06/19 06:30 - SEPSIS Current Stage of Sepsis: Resolved Possible source of Sepsis: Pulmonary Sepsis Criteria: Recorded Heart Rate greater than 90 bpm, Recorded Respiratory Rate greater than 20, Respiratory: Increasing oxygen requirements, WBC count greater than 12,000 or less than 4000, SBP drop more than 40mHg, MAP less than 65 mmHg, SBP less than 90 mmHg, Metabolic: lactate > 2 mmol/L, Hepatic: Bilirubin greater than 2mg/dl
[2019-07-06] MEDS ORDERED: INSULIN GLARGINE 300 UNIT/3 ML PEN SUBQ SCH (21:00)
== END 2019-07-06 09:44 | disposition expired | DRG 871 ==
LOC: EDUNIT# → EDBD → ED 16:35 → ICU 19:26 → MS2 06-26 19:11 → ICU 07-01 18:50 → MS3 07-04 17:57
PROVIDERS: ADMIT Internal Medicine; ATTEND Internal Medicine
PROC: 30233N1 Transfusion of Nonautologous Red Blood Cells into Peripheral Vein, Percutaneous Approach (ICD-10-PCS; principal; 2019-06-19)
PROC: 30243R1 Transfusion of Nonautologous Platelets into Central Vein, Percutaneous Approach (ICD-10-PCS; 2019-06-20)
DX: A40.3 Sepsis due to Streptococcus pneumoniae (principal); E10.10 Type 1 diabetes mellitus with ketoacidosis without coma; R65.21 Severe sepsis with septic shock; J69.0 Pneumonitis due to inhalation of food and vomit; E43 Unspecified severe protein-calorie malnutrition; G93.41 Metabolic encephalopathy; C18.6 Malignant neoplasm of descending colon; C78.7 Secondary malignant neoplasm of liver and intrahepatic bile duct; C77.9 Secondary and unspecified malignant neoplasm of lymph node, unspecified; C78.6 Secondary malignant neoplasm of retroperitoneum and peritoneum; R18.0 Malignant ascites; B37.49 Other urogenital candidiasis; K92.1 Melena; R44.3 Hallucinations, unspecified; E87.1 Hypo-osmolality and hyponatremia; E87.0 Hyperosmolality and hypernatremia; D64.9 Anemia, unspecified; D69.59 Other secondary thrombocytopenia; G89.3 Neoplasm related pain (acute) (chronic); I10 Essential (primary) hypertension; F43.10 Post-traumatic stress disorder, unspecified; F32.9 Major depressive disorder, single episode, unspecified; F41.1 Generalized anxiety disorder; F60.9 Personality disorder, unspecified; F17.210 Nicotine dependence, cigarettes, uncomplicated; R62.7 Adult failure to thrive; R33.9 Retention of urine, unspecified; E10.649 Type 1 diabetes mellitus with hypoglycemia without coma; R00.0 Tachycardia, unspecified; E86.0 Dehydration; I95.2 Hypotension due to drugs; T44.7X5A Adverse effect of beta-adrenoreceptor antagonists, initial encounter; Y92.230 Patient room in hospital as the place of occurrence of the external cause; R31.29 Other microscopic hematuria; R34 Anuria and oliguria; Z51.5 Encounter for palliative care; Z66 Do not resuscitate; Z79.891 Long term (current) use of opiate analgesic; Z79.4 Long term (current) use of insulin; Z74.01 Bed confinement status; Z79.899 Other long term (current) drug therapy; Z93.3 Colostomy status; Z68.24 Body mass index [BMI] 24.0-24.9, adult; Z86.14 Personal history of Methicillin resistant Staphylococcus aureus infection; Z91.19 Patient's noncompliance with other medical treatment and regimen; Z95.828 Presence of other vascular implants and grafts
CPT/HCPCS: 36415; 36600; 51702; 70450; 71045; 74177; 80048; 80053; 80076; 80202; 80306; 80307; 80320; 80329; 81001; 81003; 81599; 82009; 82040; 82042; 82310; 82330; 82378; 82550; 82803; 82945; 82947; 83036; 83605; 83615; 83690; 83735; 84100; 84132; 84443; 85014; 85018; 85025; 85027; 85049; 85384; 85610; 86850; 86900; 86901; 86920; 86965; 87040; 87070; 87075; 87086; 87150; 87181; 87205; 89051; 93005; 93306; 96361; 96374; 96375; 97110; 97161; 97530; 99232; 99233; 99285; 99291; A6250; A9270; J0131; J1170; J1815; J2060; J3370; J3490; J7040; J7120; P9016; P9033; P9047; Q9967; 84484